=== PATIENT | female | born 1975 | race Caucasian/White ===

== ENCOUNTER 2017-10-13 11:11 | Outpatient (CLI) | payer MEDICAID, SELFPAY ==
[2017-10-13 13:26] LABS: Abs Immature Grans 0.01 k/cumm (0.0-0.09); Absolute Basophil Count 0.02 k/cumm (0.0-0.2); Absolute Eosinophil Count 0.07 k/cumm (0.0-0.7); Absolute Lymphocyte Count 1.82 k/cumm (1.2-3.4); Absolute Monocyte Count 0.35 k/cumm (0.11-0.7); Absolute Neutrophil Count 3.52 k/cumm (1.2-6.7); Basophils % 0.3; Eosinophils % 1.2; HCT 39.3 % (36.0-46.0); HGB 13.7 g/dL (12.0-15.5); Immature Grans % 0.2; Lymphocytes % 31.4; Mean Corp. HGB Concentration 34.9 g/dL (32.0-36.0); Mean Corpuscular Hemoglobin 31.1 pg (27.0-33.0); Mean Corpuscular Volume 89.1 fL (80-95); Mean Platelet Volume 12.6 fL (8.0-11.0); Neutrophils % 60.9; Platelet Count 208 x1000/uL (130-400); RBC 4.41 m/cumm (4.00-5.20); RBC Distribution Width 12.6 % (11.7-14.6); White Blood Cell Count 5.79 k/cumm (4.4-10.8)
[2017-10-13 13:33] LABS: Hemoglobin A1C 12.4 % (4.5-6.2)
[2017-10-13 13:44] LABS: Albumin 3.8 g/dL (3.4-5.0); Alkaline Phosphatase 146 U/L (46-116); Anion Gap 11.8 mmol/L (3-11); BUN 8 mg/dL (7-18); Bilirubin, Total 0.8 mg/dL (0.2-1.0); CO2 25.2 mmol/L (21.0-32.0); CREATININE 0.87 mg/dL (0.55-1.02); Calcium 9.5 mg/dL (8.5-10.1); Chloride 96 mmol/L (98-107); Cholesterol 332 mg/dL (50-200); Glucose 443 mg/dL (70-100); HDL Cholesterol 28 mg/dL (40-60); LDL CHOLESTEROL 83 mg/dL (<100); Magnesium 1.8 mg/dL (1.8-2.4); Potassium 4.1 mmol/L (3.5-5.1); Sodium 133 mmol/L (136-145); TSH 19.32 uIU/mL (0.358-3.74); Total Protein 7.7 g/dL (6.4-8.2)
[2017-10-13 14:12] LABS: Triglyceride 2356 mg/dL (30-150)
[2017-10-13 14:16] LABS: ALT 81 U/L (12-78)
[2017-10-13 14:20] LABS: AST 81 U/L (15-37)
== END 2017-10-13 11:12 ==
PROVIDERS: Visit Provider Family Medicine
DX: E11.65 Type 2 diabetes mellitus with hyperglycemia (principal); E78.00 Pure hypercholesterolemia, unspecified; E03.9 Hypothyroidism, unspecified; K21.9 Gastro-esophageal reflux disease without esophagitis; R42 Dizziness and giddiness
CPT/HCPCS: 36415; 80053; 80061; 83721; 82043; 82570; 83036; 83735; 84443; 85025

== ENCOUNTER 2017-10-13 12:00 | Outpatient (REF) | payer MEDICAID, SELFPAY ==
[2017-10-13 15:06] LABS: COMMENT (LAB VIEW ONLY) 61.61 mg/dL; Microalb ug/mg Crea 349.6 ug/mg Cr
== END 2017-10-13 12:01 ==
LOC: LBN 12:00
PROVIDERS: Visit Provider Family Medicine
DX: E11.9 Type 2 diabetes mellitus without complications (principal)
CPT/HCPCS: 82043; 82570

== ENCOUNTER 2017-12-02 01:03 | Outpatient (CLI) | payer MEDICAID, SELFPAY ==
[2017-12-02 11:18] LABS: ALT 141 U/L (12-78); AST 166 U/L (15-37); Albumin 3.7 g/dL (3.4-5.0); Alkaline Phosphatase 102 U/L (46-116); Anion Gap 11.4 mmol/L (3-11); BUN 11 mg/dL (7-18); Bilirubin, Total 0.7 mg/dL (0.2-1.0); CO2 23.6 mmol/L (21.0-32.0); CREATININE 0.66 mg/dL (0.55-1.02); Calcium 9.1 mg/dL (8.5-10.1); Chloride 104 mmol/L (98-107); Glucose 148 mg/dL (70-100); Potassium 4.4 mmol/L (3.5-5.1); Sodium 139 mmol/L (136-145); TSH (W/Ref FT4) 9.04 uIU/mL (0.358-3.74)
[2017-12-02 11:41] LABS: FREE T4 0.86 ng/dL (0.76-1.46)
== END 2017-12-02 01:23 ==
DX: E03.9 Hypothyroidism, unspecified (principal); B37.3 Candidiasis of vulva and vagina
CPT/HCPCS: 36415; 80053; 84439; 84443

== ENCOUNTER 2017-12-22 17:34 | Outpatient (REF) | payer MEDICAID, SELFPAY ==
--- NOTE | 2017-12-22 13:40 | PAPFT_PTH ---
PATIENT: Evita Singleton LOC: [facility] U#:[id number] AGE/SX: 42/F ROOM: RE12/22/[address]: Marcia Dickens APRN : 1975 BED: DIS: 12/22/2017 SPEC #: [id number] RECD: 12/22/17 18:16 STATUS: JOAQUIN REQ #: [id number] SHERRIE: 12/22/17 13:[address]: Marcia Dickens DEPT: [facility] Cytology RECD BY: Aliya Squires Tissues: 1 - CX/ENDOCX FOR PAP SMEARS Procedures: PAP THIN PREP/UVM Screening HPV DNA PROBE Comments: [id number]
== END 2017-12-22 17:54 ==
LOC: LBN 17:34
DX: Z12.4 Encounter for screening for malignant neoplasm of cervix (principal); Z11.51 Encounter for screening for human papillomavirus (HPV)
CPT/HCPCS: 88142; 87624

== ENCOUNTER 2018-01-05 01:35 | Outpatient (CLI) | payer MEDICAID, SELFPAY ==
[2018-01-05 13:35] LABS: ALT 94 U/L (12-78)
== END 2018-01-05 01:55 ==
DX: R74.8 Abnormal levels of other serum enzymes (principal); O99.89 Other specified diseases and conditions complicating pregnancy, childbirth and the puerperium; R74.0 Nonspecific elevation of levels of transaminase and lactic acid dehydrogenase [LDH]
CPT/HCPCS: 36415; 84460

== ENCOUNTER 2018-06-07 04:42 | Outpatient (CLI) | payer MEDICAID, SELFPAY ==
[2018-06-07 11:14] LABS: AST 106 U/L (15-37)
[2018-06-07 11:16] LABS: Hemoglobin A1C 11.5 % (4.5-6.2)
== END 2018-06-07 05:02 ==
DX: E11.65 Type 2 diabetes mellitus with hyperglycemia (principal); R74.0 Nonspecific elevation of levels of transaminase and lactic acid dehydrogenase [LDH]; R74.8 Abnormal levels of other serum enzymes
CPT/HCPCS: 36415; 83036; 84450

== ENCOUNTER 2018-06-11 08:24 | Emergency (ER) | payer MEDICAID, SELFPAY ==
[2018-06-11 08:53] VITALS: BP 149/91; PULSE 68; RESP 16; TEMP 36.7; O2SAT 98
--- NOTE | 2018-06-11 08:53 | ED.GENADUL_ITS ---
Discharge Plan Disposition Patient Disposition: HOME Condition: Improving Discharge Details Chief Complaint: Sorethroat Clinical Impression: Acute pharyngitis Primary Care Provider: Marcia Dickens ED Provider: Kentrell Arnold Home Meds and New Rx's Prescriptions: New penicillin V potassium 500 mg tablet 500 mg PO TID 10 Days Qty: 30 RF: 0 Continued cyanocobalamin (vitamin B-12) 500 mcg tablet 500 mcg PO DAILY RF: 0 fluconazole 150 mg tablet 150 mg PO ONCE Qty: 2 RF: 11 hydrochlorothiazide 12.5 mg tablet 12.5 mg PO DAILY Qty: 90 RF: 3 lancets 28 gauge misc 1 ea Miscellaneous TID Qty: 400 RF: 3 levocetirizine [Xyzal] 5 mg tablet 5 mg PO PRN Qty: 30 RF: 3 levothyroxine 200 mcg tablet 200 mcg PO DAILY Qty: 90 RF: 3 Victoza 2-Fly 0.6 mg/0.1 mL (18 mg/3 mL) pen injector 0.6 mg subcut DAILY Qty: 9 RF: 4 lisinopril 2.5 mg tablet 5 mg PO BID Qty: 180 RF: 3 loratadine 10 mg tablet 10 mg PO DAILY Qty: 90 RF: 3 metformin 500 mg tablet 1,000 mg PO BID Qty: 360 RF: 3 miconazole nitrate [Monistat 7] 2 % cream 1 appful VG .seven Qty: 45 RF: 3 naproxen 500 mg tablet 500 mg PO BID MDD 1500mg Qty: 90 RF: 4 norethindrone acetate 5 mg tablet 5 mg PO DAILY Qty: 90 RF: 4 nystatin 100,000 unit/gram powder 1 applic Topical TID PRN (Reason: rash) Qty: 60 RF: 3 olopatadine 0.1 % drops 1 drp Ophthalmic BID PRN (Reason: atopic conjunctivitis) Qty: 1 RF: 3 pantoprazole 40 mg tablet,delayed release (DR/EC) 40 mg PO DAILY Qty: 90 RF: 3 pen needle, diabetic [Pen Needle] 31 gauge x 5/16 needle 1 ea Miscellaneous QID Qty: 400 RF: 3 sumatriptan succinate [Imitrex] 50 mg tablet 50 mg PO PRN MDD 200mg Qty: 30 RF: 3 valacyclovir 1 gram tablet 1,000 mg PO BID Qty: 20 RF: 3 fluoxetine 40 mg capsule 40 mg PO DAILY Qty: 90 RF: 3 Synvisc 16 MG/2 ML syringe 16 mg IU Q6 months RF: 0 triamcinolone acetonide 15 GM cream 15 gm Topical BID Qty: 1 RF: 2 Novolog Flexpen U-100 Insulin 100 unit/mL insulin pen See Rx Instructions Sub-Q TID Qty: 15 RF: 3 Lantus Solostar U-100 Insulin 100 unit/mL (3 mL) insulin pen 37 unit subcut BID Qty: 15 RF: 3 atorvastatin [Lipitor] 40 mg tablet 40 mg PO HS Qty: 90 RF: 3 FreeStyle Lite Strips strip See Rx Instructions .ROUTE .COMPLEX Qty: 400 RF: 12 No Action blood-glucose meter 1 EACH misc 1 ea Miscellaneous DAILY Qty: 1 RF: 0 Discharge Instructions Instructions: Pharyngitis (ED) Additional Instructions: Return for difficulty swallowing, change to voice, persistent high fevers or any other acute concerns. I recommend that you take either [id number] probiotic and/or live culture yogurt in between the doses of antibiotics. May use [id number] Gas-X as well if needed. Continue your regular medications. 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 She is well-appearing without acute distress. Rapid strep test is positive. Will treat with a course of penicillin. Discussed with her home care as well as follow-up/return precautions HPI General Mode of arrival: ambulatory . Date/Time Provider Initiated Documentation: 06/11/18 08:45 . Limitations to Documentation: no limitations . Information obtained by: patient . History of Present Illness 43 year old F presents to the emergency department with the chief complaint of Sore throat times 3 days with mild associated loose stool, no abdominal, described as moderate, Quality is described as aching and dull, and is localized to the mouth. Patient started experiencing this day(s) and it has been constant. No relieving factors improve symptom(s), Patient notes denies fever/chills. Related Data Home Medications Medication Instructions Recorded Confirmed Synvisc 16 mg IU Q6 months 12/24/13 06/11/18 blood-glucose meter #1 ea 01/14/15 05/17/18 triamcinolone acetonide 15 gm TOPICAL BID #1 tube 12/15/15 06/11/18 cyanocobalamin (vit B-12) 500 mcg 500 mcg PO DAILY 12/13/17 06/11/18 tablet fluconazole 150 mg tablet 150 mg PO ONCE #2 tab-cap 12/13/17 06/11/18 hydrochlorothiazide 12.5 mg tablet 12.5 mg PO DAILY #90 tab-cap 12/13/17 06/11/18 lancets 28 gauge #400 ea 12/13/17 05/17/18 levocetirizine 5 mg tablet 5 mg PO PRN #30 tab-cap 12/13/17 06/11/18 levothyroxine 200 mcg tablet 200 mcg PO DAILY #90 tab-cap 12/13/17 06/11/18 liraglutide 0.6 mg/0.1 mL (18 mg/3 0.6 mg SUBCUT DAILY #9 ml 12/13/17 06/11/18 mL) subcutaneous pen injector lisinopril 2.5 mg tablet 5 mg PO BID #180 tab-cap 12/13/17 06/11/18 loratadine 10 mg tablet 10 mg PO DAILY #90 tab-cap 12/13/17 06/11/18 metformin 500 mg tablet 1,000 mg PO BID #360 tab 12/13/17 06/11/18 miconazole nitrate 2 % vaginal 1 appful VG .seven #45 gm 12/13/17 06/11/18 cream naproxen 500 mg tablet 500 mg PO BID #90 tab MDD 1500mg 12/13/17 06/11/18 norethindrone acetate 5 mg tablet 5 mg PO DAILY #90 tab-cap 12/13/17 06/11/18 nystatin 100,000 unit/gram topical 1 applic TOPICAL TID PRN #60 gm 12/13/17 06/11/18 powder olopatadine 0.1 % eye drops 1 drp OPHTHALMIC BID PRN #1 bottle 12/13/17 06/11/18 pantoprazole 40 mg tablet,delayed 40 mg PO DAILY #90 tab-cap 12/13/17 06/11/18 release pen needle, diabetic 31 gauge x #400 each 12/13/17 05/17/1807/20 sumatriptan 50 mg tablet 50 mg PO PRN #30 tab-cap MDD 200mg 12/13/17 06/11/18 valacyclovir 1 gram tablet 1,000 mg PO BID #20 tab-cap 12/13/17 06/11/18 insulin aspart U- 100 100 unit/mL See Rx Instructions SUB-Q TID #15 12/14/17 06/11/18 subcutaneous pen ml insulin glargine (U-100) 100 37 unit SUBCUT BID #15 ml 01/11/18 06/11/18 unit/mL (3 mL) subcutaneous pen atorvastatin 40 mg tablet 40 mg PO HS #90 tab-cap 02/23/18 06/11/18 fluoxetine 40 mg capsule 40 mg PO DAILY #90 cap 05/17/18 06/11/18 blood sugar diagnostic strips See Rx Instructions .ROUTE 05/22/18 06/11/18 .COMPLEX #400 strip penicillin V potassium 500 mg PO TID 10 Days #30 tab 06/11/18 Previous Rx's Medication Instructions Recorded fluconazole 150 mg tablet 150 mg PO ONCE #2 tab-cap 12/13/17 hydrochlorothiazide 12.5 mg tablet 12.5 mg PO DAILY #90 tab-cap 12/13/17 lancets 28 gauge #400 ea 12/13/17 levocetirizine 5 mg tablet 5 mg PO PRN #30 tab-cap 12/13/17 levothyroxine 200 mcg tablet 200 mcg PO DAILY #90 tab-cap 12/13/17 liraglutide 0.6 mg/0.1 mL (18 mg/3 0.6 mg SUBCUT DAILY #9 ml 12/13/17 mL) subcutaneous pen injector lisinopril 2.5 mg tablet 5 mg PO BID #180 tab-cap 12/13/17 loratadine 10 mg tablet 10 mg PO DAILY #90 tab-cap 12/13/17 metformin 500 mg tablet 1,000 mg PO BID #360 tab 12/13/17 miconazole nitrate 2 % vaginal 1 appful VG .seven #45 gm 12/13/17 cream naproxen 500 mg tablet 500 mg PO BID #90 tab MDD 1500mg 12/13/17 norethindrone acetate 5 mg tablet 5 mg PO DAILY #90 tab-cap 12/13/17 nystatin 100,000 unit/gram topical 1 applic TOPICAL TID PRN #60 gm 12/13/17 powder olopatadine 0.1 % eye drops 1 drp OPHTHALMIC BID PRN #1 bottle 12/13/17 pantoprazole 40 mg tablet,delayed 40 mg PO DAILY #90 tab-cap 12/13/17 release pen needle, diabetic 31 gauge x #400 each 12/13/17 5 sumatriptan 50 mg tablet 50 mg PO PRN #30 tab-cap MDD 200mg 12/13/17 valacyclovir 1 gram tablet 1,000 mg PO BID #20 tab-cap 12/13/17 insulin aspart U- 100 100 unit/mL See Rx Instructions SUB-Q TID #15 12/14/17 subcutaneous pen ml insulin glargine (U-100) 100 37 unit SUBCUT BID #15 ml 01/11/18 unit/mL (3 mL) subcutaneous pen atorvastatin 40 mg tablet 40 mg PO HS #90 tab-cap 02/23/18 fluoxetine 40 mg capsule 40 mg PO DAILY #90 cap 05/17/18 blood sugar diagnostic strips See Rx Instructions .ROUTE 05/22/18 .COMPLEX #400 strip penicillin V potassium 500 mg PO TID 10 Days #30 tab 06/11/18 Allergies Allergy/AdvReac Type Severity Reaction Status Date / Time Sulfa (Sulfonamide Allergy Severe Anaphylaxsi Verified 06/11/18 08:58 Antibiotics) s fentanyl Allergy Intermediate Verified 06/11/18 08:58 latex Allergy Intermediate Hives Verified 06/11/18 08:58 zolpidem tartrate AdvReac Mild Verified 06/11/18 08:58 [From Ambien] Dust, cat dander Allergy Intermediate Hives Uncoded 06/11/18 08:58 Environmental Allergies Allergy Intermediate Rash Uncoded 06/11/18 08:58 Review of Systems Review of Systems 6 systems reviewed and otherwise neg [facility] Medical History Sleep apnea (Chronic 05/28/12) Simple endometrial hyperplasia without atypia (Chronic 01/02/14) Peripheral polyneuropathy (Chronic 10/29/15) Migraine (Chronic) Unspecified mental or behavioral problem (Acute) Menorrhagia (Chronic 01/02/14) MDD (major depressive disorder) (Chronic) Liver disorder (Chronic 09/24/15) Increased body mass index (Chronic 01/25/14) Hypothyroidism, acquired (Chronic) Hypertension (Chronic) High cholesterol (Chronic) Herpes simplex vulvovaginitis (Chronic 05/19/17) Diabetes type 2, uncontrolled (Acute 04/22/15) Dermatitis (Chronic 12/16/15) DJD (degenerative joint disease) (Chronic) Chronic pain disorder (Chronic) Arthritis of knee (Chronic 05/24/11) Anxiety (Chronic 01/25/14) Acid reflux (Chronic 01/25/14) Bronchitis (Chronic) Abnormal uterine bleeding (AUB) Genital herpes Migraine Sleep apnea Surgical History Bladder Surgery (~2002) CRANIO/MAXILLAFACIAL SURGERY (~2007) section Cholecystectomy (~2005) Endometrial Biopsy Tooth extraction Family History Mother No problems noted. Father Alcohol abuse Prostate cancer Sister No problems noted. Brother Stroke Maternal Grandfather Essential hypertension Heart disease Hyperlipidemia Paternal Grandfather Myocardial infarction Brain tumor Maternal Grandmother Essential hypertension Paternal Grandmother Personal history of malignant neoplasm MATERNAL AUNT Essential hypertension Cancer MATERNAL UNCLE Essential hypertension Social History Smoking/Tobacco Use Status: Former Tobacco Use Quit Date: 03/07/10 Pack-years: 10 Second Hand Exposure: Yes Alcohol Intake: former Drug use: Never Substance use type: former substance user Household members: other Details: 2 Number of Children: 4 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 Pets and animals: Yes Pets and animals: cat(s) What type of physical activity do you participate in: walking and swimming Duration: 15-30 minutes/day Frequency: 1-2 times per week Jailyn/Anabaptism: No preference Special jailyn needs: Yes (SINGING) Seatbelt use: always Helmet use: Yes Helmet use: always Do you feel safe at home: Yes Do you feel safe in your relationship?: Yes Exam Narrative Exam Narrative: GEN: awake, alert, oriented 3. Pleasant, well groomed, interactive. HEAD: Normocephalic, atraumatic ENT: Mucous membranes moist, oropharynx erythematous tonsillar pillars, External ear exam unremarkable. Tympanic membranes clear bilaterally EYES: PERRL, EOMI NECK: Full ROM, no AYAN, no menigismus CHEST/RESP: Nontender, clear to auscultation bilateral, no wheeze/rhonchi/rales CARDIOVASCULAR: RRR, no murmur, rub linda. 2+ Rad pulse bilateral EXT: Full ROM, no edema, no rash Neuro: Grossly normal neurologic exam, conversant, interactive. Psych: Speech fluent, thoughts congruent, affect normal
== END 2018-06-11 09:13 | disposition home or self-care (01) ==
PROVIDERS: Emergency Provider Emergency Medicine
DX: J02.0 Streptococcal pharyngitis (principal)
CPT/HCPCS: 87880; 99283

== ENCOUNTER 2018-06-21 07:30 | Outpatient (CLI) | payer MEDICAID, SELFPAY ==
[2018-06-21 13:15] LABS: TSH (W/Ref FT4) 4.69 uIU/mL (0.358-3.74)
[2018-06-21 13:34] LABS: FREE T4 0.82 ng/dL (0.76-1.46)
== END 2018-06-21 07:50 ==
DX: E03.9 Hypothyroidism, unspecified (principal); G47.00 Insomnia, unspecified
CPT/HCPCS: 36415; 84439; 84443

== ENCOUNTER 2018-09-19 09:16 | Outpatient (CLI) | payer MEDICAID, SELFPAY | END 2018-09-19 09:36 | DX: R69 Illness, unspecified (principal) ==

== ENCOUNTER 2018-09-27 12:53 | Outpatient (CLI) | payer MEDICAID, SELFPAY ==
[2018-09-27 13:45] LABS: Hemoglobin A1C 8.9 % (4.5-6.2)
[2018-09-27 14:31] LABS: TSH (W/Ref FT4) 10.21 uIU/mL (0.36-3.74)
[2018-09-27 14:52] LABS: FREE T4 0.71 ng/dL (0.76-1.46)
== END 2018-09-27 13:13 ==
DX: E03.9 Hypothyroidism, unspecified (principal); G47.00 Insomnia, unspecified; E11.9 Type 2 diabetes mellitus without complications
CPT/HCPCS: 36415; 83036; 84439; 84443

== ENCOUNTER 2018-12-08 08:09 | Outpatient (CLI) | payer MEDICAID, SELFPAY ==
[2018-12-08 10:57] LABS: TSH 10.76 uIU/mL (0.36-3.74)
== END 2018-12-08 08:29 ==
DX: E03.9 Hypothyroidism, unspecified (principal); E11.65 Type 2 diabetes mellitus with hyperglycemia
CPT/HCPCS: 36415; 83036; 84443

== ENCOUNTER 2018-12-22 02:17 | Outpatient (CLI) | payer MEDICAID, SELFPAY ==
--- NOTE | 2018-12-22 11:07 | DI.US_ITS ---
EXAM: US THYROID CLINICAL HISTORY: uncontrolled TSH despite medications, E03.9 HYPOTHYROIDISM TECHNIQUE: Ultrasound performed using standard protocol. COMPARISON: THYROID ULTRASOUND from 11/28/2015 FINDINGS: Both lobes of the thyroid are again noted to be diffusely heterogeneous. No dominant nodules are id entified. The right lobe measures 5.3 x 1.8 x 2.1 cm. The left lobe measures 5.4 x 1.6 x 2.1 cm. T here may be a slight increase in thyroid size when compared with the previous exam. IMPRESSION: Mild interval increase in heterogeneous thyroid.
== END 2018-12-22 02:37 ==
DX: E03.9 Hypothyroidism, unspecified (principal)
CPT/HCPCS: 76536

== ENCOUNTER 2019-03-23 01:16 | Outpatient (CLI) | payer MEDICAID, SELFPAY ==
[2019-03-23 12:00] LABS: TSH (W/Ref FT4) 13.11 uIU/mL (0.36-3.74)
[2019-03-23 12:33] LABS: FREE T4 0.83 ng/dL (0.76-1.46)
[2019-03-23 13:05] LABS: Hemoglobin A1C 13.4 % (3.8-5.6)
== END 2019-03-23 01:36 ==
DX: E03.9 Hypothyroidism, unspecified (principal); E11.65 Type 2 diabetes mellitus with hyperglycemia; G47.00 Insomnia, unspecified
CPT/HCPCS: 83036; 84439; 84443

== ENCOUNTER 2019-04-10 09:35 | Outpatient (REF) | payer MEDICAID, SELFPAY ==
[2019-04-10 15:56] LABS: Bilirubin Negative (Negative); Blood Moderate (Negative); Clarity Cloudy (Clear); Glucose 500 mg/dL (Negative); Ketones Negative (Negative); Leukocyte Esterase Small (Negative); Nitrite Positive (Negative); Specific Gravity >= 1.030 (1.005-1.025); Urobilinogen 0.2 EU/dL (Up TO 0.2); pH 5.5 (5-8)
[2019-04-10 16:08] LABS: Bacteria Moderate HPF (Negative); C & S Indicated? Yes; Casts Negative LPF (Negative); Crystals Few Calcium Oxalate HPF (Negative); Epithelial Cells Few HPF (Negative); Mucus Negative (Negative); WBC >50 HPF (0-5)
== END 2019-04-10 09:55 ==
LOC: LBN 09:35
DX: R30.0 Dysuria (principal)
CPT/HCPCS: 87077; 81003; 81015; 87086; 87186

== ENCOUNTER 2019-05-17 02:39 | Outpatient (CLI) | payer MEDICAID, SELFPAY ==
[2019-05-17 08:44] LABS: ALT 52 U/L (14-59); AST 61 U/L (15-37); Albumin 3.7 g/dL (3.4-5.0); Alkaline Phosphatase 80 U/L (46-116); Anion Gap 10.5 mmol/L (3-11); BUN 17 mg/dL (7-18); Bilirubin, Total 0.7 mg/dL (0.2-1.0); CO2 26.5 mmol/L (21.0-32.0); CREATININE 0.75 mg/dL (0.55-1.02); Calcium 8.7 mg/dL (8.5-10.1); Chloride 106 mmol/L (98-107); Glucose 171 mg/dL (74-106); Sodium 143 mmol/L (136-145); TSH (W/Ref FT4) 3.08 uIU/mL (0.36-3.74); Total Protein 6.7 g/dL (6.4-8.2)
[2019-05-17 09:04] LABS: Hemoglobin A1C 11.5 % (3.8-5.6)
== END 2019-05-17 02:59 ==
DX: E03.9 Hypothyroidism, unspecified (principal); E11.65 Type 2 diabetes mellitus with hyperglycemia; G47.00 Insomnia, unspecified; I10 Essential (primary) hypertension; R63.8 Other symptoms and signs concerning food and fluid intake
CPT/HCPCS: 36415; 80053; 83036; 84443

== ENCOUNTER 2019-11-29 04:49 | Outpatient (CLI) | payer MEDICAID, SELFPAY ==
[2019-11-29 12:32] LABS: HGB 13.8 g/dL (11.2-15.7)
[2019-11-29 12:44] LABS: Hemoglobin A1C 12.3 % (<5.7)
[2019-11-29 12:55] LABS: ALT 77 U/L (14-59); AST 93 U/L (15-37); Albumin 3.8 g/dL (3.4-5.0); Alkaline Phosphatase 122 U/L (46-116); Anion Gap 7.8 mmol/L (3-11); BUN 14 mg/dL (7-18); Bilirubin, Total 0.6 mg/dL (0.2-1.0); CO2 27.2 mmol/L (21.0-32.0); CREATININE 0.85 mg/dL (0.55-1.02); Calcium 9.3 mg/dL (8.5-10.1); Chloride 98 mmol/L (98-107); Glucose 401 mg/dL (74-106); Potassium 4.5 mmol/L (3.5-5.1); Sodium 133 mmol/L (136-145); TSH (W/Ref FT4) 7.77 uIU/mL (0.36-3.74); Total Protein 7.7 g/dL (6.4-8.2)
[2019-11-29 13:12] LABS: FREE T4 0.83 ng/dL (0.76-1.46)
== END 2019-11-29 05:09 ==
DX: E11.65 Type 2 diabetes mellitus with hyperglycemia (principal); E03.9 Hypothyroidism, unspecified; R53.83 Other fatigue; M17.0 Bilateral primary osteoarthritis of knee; I88.9 Nonspecific lymphadenitis, unspecified
CPT/HCPCS: 36415; 80053; 83036; 84439; 84443; 85014; 85018

== ENCOUNTER 2020-01-18 11:15 | Outpatient (CLI) | payer MEDICAID, SELFPAY ==
--- NOTE | 2020-01-18 11:00 | DI.RAD_ITS ---
EXAM: XR STANDING ALIGNMENT and XR knee RT two view AP, Lat CLINICAL HISTORY: follow up. TECHNIQUE: 2D digital imaging was performed. COMPARISON: CR XR KNEE LT 3V AP,LAT,ANGUS from 01/18/2020 CR XR KNEE RT 2V AP,LAT from 01/18/2020 FINDINGS: The hip joints are well maintained. Severe degenerative changes are seen in the right knee character ized by joint space narrowing and periarticular spurring. The findings are most marked in the medial femoral tibial and the patellofemoral joints. Marked degenerative changes are seen in the left knee particularly the medial femoral tibial joint. The ankle joints are unremarkable. The right lower e xtremity measures 95.3 cm. The left lower extremity measures 96 cm. IMPRESSION: Severe bilateral osteoarthritis of the knees. No significant leg length discrepancy. DATA REPOSITORY: RADIATION DOSE DELIVERED:
--- NOTE | 2020-01-18 11:00 | DI.RAD_ITS ---
EXAM: XR KNEE LT 3V AP,LAT,ANGUS CLINICAL HISTORY: pain. TECHNIQUE: 2D digital imaging was performed. COMPARISON: CR CHEST 2 VIEWS PA,LAT from 01/28/2015 FINDINGS: Marked degenerative changes are seen in the left knee characterized by joint space narrowing and yulissa articular spurring. Findings are most marked in the medial femoral tibial and patellofemoral joint. The bones are intact. No acute fracture or dislocation is seen. No joint effusion is present. The soft tissues are unremarkable. IMPRESSION: Marked osteoarthritis of the left knee. DATA REPOSITORY: RADIATION DOSE DELIVERED:
== END 2020-01-18 11:35 ==
PROVIDERS: Visit Provider Physician Assistant Surgical
DX: M17.0 Bilateral primary osteoarthritis of knee (principal)
CPT/HCPCS: 73562; 73560; 77073

== ENCOUNTER 2020-02-03 12:06 | Emergency (ER) | payer MEDICAID, SELFPAY ==
[2020-02-03 12:11] VITALS: BP 162/97; PULSE 93; RESP 16; TEMP 36.4; O2SAT 97
--- NOTE | 2020-02-03 12:21 | ED.GENADUL_ITS ---
Discharge Plan Disposition Patient Disposition: HOME Condition: Improving Discharge Details Clinical Impression: Otitis media, right Primary Care Provider: Marcia Dickens ED Provider: Kentrell Arnold Home Meds and New Rx's Prescriptions: New amoxicillin-pot clavulanate 875-125 mg tablet 1 tab PO BID 10 Days Qty: 20 RF: 0 Continued miconazole nitrate [Monistat 7] 2 % cream 1 appful VG .seven Qty: 45 RF: 3 norethindrone acetate 5 mg tablet 5 mg PO DAILY Qty: 90 RF: 4 nystatin 100,000 unit/gram powder 1 applic Topical TID PRN (Reason: rash) Qty: 60 RF: 3 levothyroxine 25 mcg tablet 50 mcg PO DAILY RF: 0 Victoza 2-Fly 0.6 mg/0.1 mL (18 mg/3 mL) pen injector 1.8 mg subcut DAILY Qty: 9 RF: 4 mupirocin 2 % ointment 1 applic TP BID Qty: 22 RF: 3 metformin 500 mg tablet 500 mg PO BID RF: 0 (DME) Dexcom G6 Fisheries Diver Misc See Rx Instructions .ROUTE .MEDSUPPLY Qty: 1 RF: 0 (DME) Dexcom G6 Transmitter Device See Rx Instructions .ROUTE .MEDSUPPLY Qty: 1 RF: 0 (DME) Dexcom G6 Sensor Device See Rx Instructions .ROUTE .MEDSUPPLY Qty: 3 RF: 6 fluoxetine 40 mg capsule 40 mg PO DAILY Qty: 90 RF: 4 Synvisc 16 MG/2 ML syringe 16 mg IU Q6 months RF: 0 FreeStyle Lite Strips strip See Rx Instructions .ROUTE .COMPLEX Qty: 400 RF: 12 glucose [Dex4 Glucose] 4 gram tablet,chewable 4 gm PO Q15M PRN (Reason: hypoglycemia) Qty: 7 RF: 2 phenazopyridine [Pyridium] 100 mg tablet 100 mg PO TID PRN (Reason: pain) Qty: 6 RF: 0 atorvastatin [Lipitor] 40 mg tablet 40 mg PO HS Qty: 90 RF: 3 cyanocobalamin (vitamin B-12) 500 mcg tablet 500 mcg PO DAILY Qty: 90 RF: 4 hydrochlorothiazide 12.5 mg tablet 12.5 mg PO DAILY Qty: 90 RF: 3 hydroxyzine HCl 25 mg tablet 25 mg PO Q6H PRN (Reason: headaches) Qty: 30 RF: 1 insulin aspart U-100 [Novolog Flexpen U-100 Insulin] 100 unit/mL (3 mL) insulin pen See Rx Instructions Sub-Q TID Qty: 15 RF: 3 (DME) lancets 28 gauge misc 1 ea Miscellaneous TID Qty: 50 RF: 3 levocetirizine [Xyzal] 5 mg tablet 5 mg PO PRN Qty: 30 RF: 3 Hold Instructions: Home Medication placed on hold at Doctor's office levothyroxine 200 mcg tablet 200 mcg PO DAILY Qty: 90 RF: 3 loratadine 10 mg tablet 10 mg PO DAILY Qty: 90 RF: 3 magnesium oxide 400 mg magnesium capsule 400 mg PO DAILY Qty: 90 RF: 3 naproxen 500 mg tablet 500 mg PO BID MDD 1500mg Qty: 90 RF: 4 pantoprazole 40 mg tablet,delayed release (DR/EC) 40 mg PO DAILY Qty: 90 RF: 3 (DME) pen needle, diabetic [Pen Needle] 31 gauge x 5/16 needle 1 ea Miscellaneous QID Qty: 400 RF: 3 sumatriptan succinate [Imitrex] 50 mg tablet 50 mg PO PRN MDD 200mg Qty: 30 RF: 3 triamcinolone acetonide 0.1 % cream 1 applic Topical BID PRN (Reason: rash) Qty: 1 RF: 2 cetirizine [All Day Allergy (cetirizine)] 10 mg tablet 10 mg PO DAILY Qty: 90 RF: 3 Lantus Solostar U-100 Insulin 100 unit/mL (3 mL) insulin pen 44 unit subcut BID Qty: 15 RF: 4 olopatadine 0.1 % drops 1 drp Ophthalmic BID PRN (Reason: atopic conjunctivitis) Qty: 1 RF: 3 lisinopril 2.5 mg tablet 5 mg PO BID Qty: 180 RF: 3 valacyclovir 1 gram tablet 1,000 mg PO BID PRN (Reason: Herpes outbreak) Qty: 30 RF: 1 Discharge Instructions Instructions: Ear Infection (ED) Additional Instructions: Take antibiotics as prescribed. You may benefit from the decongestant effect of 25 mg, 1 tablet, of Benadryl at bedtime. Return for worsening discomfort or any other acute concerns. Please follow-up with Marcia Dickens in clinic if not improved in 1 week's time. Tylenol and/or ibuprofen as needed for pain. Medical Decision Making 44-year-old female with day 3 of right ear pain. She is afebrile, well- appearing, she does have evidence of developing right otitis media. We will treat her with a course of Augmentin. She is stable and appropriate for trial of outpatient management. HPI General Mode of arrival: ambulatory . Date/Time Provider Initiated Documentation: 02/03/20 12:09 . Limitations to Documentation: no limitations . Information obtained by: patient . History of Present Illness 44 year old F presents to the emergency department with the chief complaint of Right ear pain 3rd day, described as moderate, Quality is described as dull, and is localized to the head and right. Patient started experiencing this day(s) and it has been constant. No relieving factors improve symptom(s), No exacerbating factors reported . Patient notes denies fever/chills and headaches. Patient did receive the following treatments prior to arrival, none Related Data Home Medications Medication Instructions Recorded Confirmed Synvisc 16 mg IU Q6 months 12/24/13 02/03/20 miconazole nitrate 2 % vaginal 1 appful VG .seven #45 gm 12/13/17 02/03/20 cream norethindrone acetate 5 mg tablet 5 mg PO DAILY #90 tab-cap 12/13/17 02/03/20 nystatin 100,000 unit/gram topical 1 applic TOPICAL TID PRN #60 gm 12/13/17 02/03/20 powder blood sugar diagnostic See Rx Instructions .ROUTE 05/22/18 02/03/20 .COMPLEX #400 strip glucose 4 gram chewable tablet 4 gm PO Q15M PRN #7 tab 07/06/18 02/03/20 phenazopyridine 100 mg tablet 100 mg PO TID PRN #6 tab 04/10/19 02/03/20 blood-glucose meter,continuous #1 each 04/21/19 02/03/20 atorvastatin 40 mg tablet 40 mg PO HS #90 tab-cap 05/25/19 02/03/20 cyanocobalamin (vitamin B-12) 500 500 mcg PO DAILY #90 tab 05/25/19 02/03/20 mcg tablet hydrochlorothiazide 12.5 mg tablet 12.5 mg PO DAILY #90 tab-cap 05/25/19 02/03/20 hydroxyzine HCl 25 mg tablet 25 mg PO Q6H PRN #30 tab 05/25/19 02/03/20 insulin aspart U-100 100 unit/mL See Rx Instructions SUB-Q TID #15 05/25/19 02/03/20 (3 mL) subcutaneous pen ml lancets 28 gauge #50 each 05/25/19 02/03/20 levocetirizine 5 mg tablet 5 mg PO PRN #30 tab-cap 05/25/19 02/03/20 levothyroxine 200 mcg tablet 200 mcg PO DAILY #90 tab-cap 05/25/19 02/03/20 loratadine 10 mg tablet 10 mg PO DAILY #90 tab-cap 05/25/19 02/03/20 magnesium oxide 400 mg PO DAILY #90 cap 05/25/19 02/03/20 naproxen 500 mg tablet 500 mg PO BID #90 tab MDD 1500mg 05/25/19 02/03/20 pantoprazole 40 mg tablet,delayed 40 mg PO DAILY #90 tab-cap 05/25/19 02/03/20 release pen needle, diabetic 31 gauge x #400 each 05/25/19 02/03/2007/20 sumatriptan succinate 50 mg tablet 50 mg PO PRN #30 tab-cap MDD 200mg 05/25/19 02/03/20 triamcinolone acetonide 0.1 % 1 applic TOPICAL BID PRN #1 tube 05/25/19 02/03/20 topical cream cetirizine 10 mg tablet 10 mg PO DAILY #90 tab 06/05/19 02/03/20 levothyroxine 25 mcg tablet 50 mcg PO DAILY tab 07/23/19 02/03/20 insulin glargine 100 unit/mL (3 44 unit SUBCUT BID #15 ml 08/21/19 02/03/20 mL) subcutaneous pen liraglutide 0.6 mg/0.1 mL (18 mg/3 1.8 mg SUBCUT DAILY #9 ml 08/23/19 02/03/20 mL) subcutaneous pen injector olopatadine 0.1 % eye drops 1 drp OPHTHALMIC BID PRN #1 bottle 09/04/19 02/03/20 mupirocin 2 % topical ointment 1 applic TP BID #22 gm 11/29/19 02/03/20 lisinopril 2.5 mg tablet 5 mg PO BID #180 tab-cap 11/30/19 02/03/20 valacyclovir 1 gram tablet 1,000 mg PO BID PRN #30 tab 11/30/19 02/03/20 fluoxetine 40 mg capsule 40 mg PO DAILY #90 cap 12/23/19 02/03/20 blood-glucose sensor #3 each 12/27/19 02/03/20 blood-glucose transmitter #1 each 12/27/19 02/03/20 metformin 500 mg tablet 500 mg PO BID tab 01/12/20 02/03/20 amoxicillin-pot clavulanate 1 tab PO BID 10 Days #20 tab 02/03/20 Previous Rx's Medication Instructions Recorded miconazole nitrate 2 % vaginal 1 appful VG .seven #45 gm 12/13/17 cream norethindrone acetate 5 mg tablet 5 mg PO DAILY #90 tab-cap 12/13/17 nystatin 100,000 unit/gram topical 1 applic TOPICAL TID PRN #60 gm 12/13/17 powder blood sugar diagnostic See Rx Instructions .ROUTE 05/22/18 .COMPLEX #400 strip glucose 4 gram chewable tablet 4 gm PO Q15M PRN #7 tab 07/06/18 phenazopyridine 100 mg tablet 100 mg PO TID PRN #6 tab 04/10/19 blood-glucose meter,continuous #1 each 04/21/19 atorvastatin 40 mg tablet 40 mg PO HS #90 tab-cap 05/25/19 cyanocobalamin (vitamin B-12) 500 500 mcg PO DAILY #90 tab 05/25/19 mcg tablet hydrochlorothiazide 12.5 mg tablet 12.5 mg PO DAILY #90 tab-cap 05/25/19 hydroxyzine HCl 25 mg tablet 25 mg PO Q6H PRN #30 tab 05/25/19 insulin aspart U-100 100 unit/mL See Rx Instructions SUB-Q TID #15 05/25/19 (3 mL) subcutaneous pen ml lancets 28 gauge #50 each 05/25/19 levocetirizine 5 mg tablet 5 mg PO PRN #30 tab-cap 05/25/19 levothyroxine 200 mcg tablet 200 mcg PO DAILY #90 tab-cap 05/25/19 loratadine 10 mg tablet 10 mg PO DAILY #90 tab-cap 03/20/20 magnesium oxide 400 mg PO DAILY #90 cap 05/25/19 naproxen 500 mg tablet 500 mg PO BID #90 tab MDD 1500mg 05/25/19 pantoprazole 40 mg tablet,delayed 40 mg PO DAILY #90 tab-cap 05/25/19 release pen needle, diabetic 31 gauge x #400 each 05/25/19 5/ sumatriptan succinate 50 mg tablet 50 mg PO PRN #30 tab-cap MDD 200mg 05/25/19 triamcinolone acetonide 0.1 % 1 applic TOPICAL BID PRN #1 tube 05/25/19 topical cream cetirizine 10 mg tablet 10 mg PO DAILY #90 tab 06/05/19 insulin glargine 100 unit/mL (3 44 unit SUBCUT BID #15 ml 08/21/19 mL) subcutaneous pen liraglutide 0.6 mg/0.1 mL (18 mg/3 1.8 mg SUBCUT DAILY #9 ml 08/23/19 mL) subcutaneous pen injector olopatadine 0.1 % eye drops 1 drp OPHTHALMIC BID PRN #1 bottle 09/04/19 mupirocin 2 % topical ointment 1 applic TP BID #22 gm 11/29/19 lisinopril 2.5 mg tablet 5 mg PO BID #180 tab-cap 11/30/19 valacyclovir 1 gram tablet 1,000 mg PO BID PRN #30 tab 11/30/19 fluoxetine 40 mg capsule 40 mg PO DAILY #90 cap 12/23/19 blood-glucose sensor #3 each 12/27/19 blood-glucose transmitter #1 each 12/27/19 amoxicillin-pot clavulanate 1 tab PO BID 10 Days #20 tab 02/03/20 Allergies Allergy/AdvReac Type Severity Reaction Status Date / Time Sulfa (Sulfonamide Allergy Severe Anaphylaxsi Verified 02/03/20 12:14 Antibiotics) s fentanyl Allergy Intermediate Verified 02/03/20 12:14 latex Allergy Intermediate Hives Verified 02/03/20 12:14 zolpidem tartrate AdvReac Mild Verified 02/03/20 12:14 [From Ambien] Dust, cat dander Allergy Intermediate Hives Uncoded 02/03/20 12:14 Environmental Allergies Allergy Intermediate Rash Uncoded 02/03/20 12:14 General Stated Complaint: EarProblem RODNEY: 4 Review of Systems Narrative: No change to voice or swallowing. No fever. Has otherwise been well. 6 systems reviewed and otherwise negative [facility] Medical History Abnormal uterine bleeding (AUB) on Norethindrone for suppression of menses. Acid reflux (01/25/14) Anxiety (01/25/14) Bronchitis Chronic pain disorder Dermatitis (12/16/15) Diabetes type 2, uncontrolled (04/22/15) Diabetic feet Diarrhea Fatigue Genital herpes HSV-1 primary outbreak. Herpes simplex 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 Surgical History Bladder Surgery (~2002) section 1999 & 2010 Cholecystectomy (~2005) CRANIO/MAXILLAFACIAL SURGERY (~2007) Endometrial Biopsy 12/24/13-[facility] History of bladder surgery History of section History of gynecological procedure Status post cholecystectomy Tooth extraction 11/18- EXTRACTION Family History Mother No problems noted. Father Alcohol abuse Prostate cancer Sister No problems noted. Brother Stroke x2 (five years apart) Maternal Grandfather Essential hypertension Heart disease Hyperlipidemia Paternal Grandfather , AGE 57 Myocardial infarction Brain tumor Maternal Grandmother , AGE 85 Essential hypertension Paternal Grandmother , AGE 85 Personal history of malignant neoplasm COLON MATERNAL AUNT Essential hypertension Cancer MATERNAL UNCLE Essential hypertension Social History Smoking/Tobacco Use Status: Former Tobacco Use Quit Date: 03/07/10 Pack-years: 10 Second Hand Exposure: Yes Smoking risk assessment performed?: Yes Alcohol Intake: former Drug use: Never Substance use type: former substance user Household members: other Details: 2 Number of Children: 4 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 Pets and animals: Yes Pets and animals: cat(s) Current gender identity: female What type of physical activity do you participate in: walking and swimming Duration: 15-30 minutes/day Frequency: 1-2 times per week Jailyn/Jain: No preference Special jailyn needs: Yes (SINGING) Seatbelt use: always Helmet use: Yes Helmet use: always Do you feel safe at home: Yes Do you feel safe in your relationship?: Yes Exam Narrative Exam Narrative: GEN: awake, alert, oriented 3. Pleasant, well groomed, interactive. HEAD: Normocephalic, atraumatic ENT: Mucous membranes moist, oropharynx with tonsillar erythema but no exudate and no swelling, right tympanic membrane distended and slightly erythematous, left tympanic membrane unremarkable,, External ear exam unremarkable EYES: PERRL, EOMI NECK: Full ROM, R submandibular AYAN, no menigismus CHEST/RESP: Nontender, clear to auscultation bilateral, no wheeze/rhonchi/rales CARDIOVASCULAR: RRR, no murmur, rub linda. 2+ Rad pulse bilateral EXT: Full ROM, no edema, no rash Neuro: Grossly normal neurologic exam, conversant, interactive. Psych: Speech fluent, thoughts congruent, affect normal Course Vital Signs Vital signs: Vital Signs Temperature 36.4 C L 02/03/20 12:11 Pulse 93 H 02/03/20 12:11 Respiratory Rate 16 02/03/20 12:11 Blood Pressure 162/97 H 02/03/20 12:11 Pulse Oximetry 97 02/03/20 12:11 Temperature 36.4 C L 02/03/20 12:11 Temperature Source Skin 02/03/20 12:11 Pulse 93 H 02/03/20 12:11 Respiratory Rate 16 02/03/20 12:11 Respiratory Effort Non-Labored 02/03/20 12:11 Blood Pressure 162/97 H 02/03/20 12:11 Blood Pressure Position Sitting 02/03/20 12:11 Pulse Oximetry 97 02/03/20 12:11 Oxygen Delivery Method Room Air 02/03/20 12:11 Oxygen Flow Rate 0 02/03/20 12:11 Pain Level 10 02/03/20 12:16
== END 2020-02-03 12:30 | disposition home or self-care (01) ==
LOC: ER 12:32
PROVIDERS: Emergency Provider Emergency Medicine
DX: H66.91 Otitis media, unspecified, right ear (principal); E11.9 Type 2 diabetes mellitus without complications; Z79.4 Long term (current) use of insulin; I10 Essential (primary) hypertension
CPT/HCPCS: 99283

== ENCOUNTER 2020-05-14 03:45 | Outpatient (CLI) | payer MEDICAID, SELFPAY ==
[2020-05-14 13:15] LABS: Calculated LDL 72 mg/dL (<100); Cholesterol 148 mg/dL (<200); HDL Cholesterol 34 mg/dL (40-60); Triglyceride 210 mg/dL (<150)
== END 2020-05-14 03:46 | disposition home or self-care (01) ==
LOC: LOS 03:46
DX: E78.00 Pure hypercholesterolemia, unspecified (principal)
CPT/HCPCS: 36415; 80061

== ENCOUNTER 2020-05-15 01:21 | Outpatient (CLI) | payer MEDICAID, SELFPAY ==
--- NOTE | 2020-05-15 08:00 | DI.MAMMO_ITS ---
EXAM: MG MAMMO SCREENING CLINICAL HISTORY: screening,z12.39 TECHNIQUE: Bilateral full field digital CC and MLO mammographic images were obtained with 3D tomosyn thesis and utilizing computer aided detection (CAD). COMPARISON: Available for comparison. FINDINGS: Masses/Architectural Distortion: None seen. Microcalcifications: No suspicious pleomorphic-type are seen. Skin Thickening/Nipple Retraction: None. IMPRESSION: 1. No significant interval change with no specific features of malignancy noted. 2. Unless there is more urgent need, screening mammography is recommended, as per [place] [employer] guidelines. BI-RADS Category 1 - Negative Breast Density - Category B - Scattered areas of fibroglandular density Breast density category C or D implies that the patient has dense breast tissue. Dense breast tissue is very common and is not abnormal but dense breast tissue can make it harder to find cancer on a ma mmogram. Also, dense breast tissue may increase their breast cancer risk. This information about the result of the mammogram report was provided to the patient to raise their awareness. Use this report when you speak with the patient about their risks for breast cancer, which includes their family hist ory. At that time, you may recommend for more screening tests (Ultrasound or MRI) as they might be us eful based on their risk. A negative radiographic report should not delay biopsy if a dominant or clinically suspicious mass is present. Up to ten percent of cancers are not identified on mammography. A negative report may reinforce clinical impression. Adenosis and dense breasts may obscure an underlying neoplasm. False positive reports average 6 to 10%. Patient will receive a letter notifying them of these results.
== END 2020-05-15 01:41 ==
DX: Z12.31 Encounter for screening mammogram for malignant neoplasm of breast (principal)
CPT/HCPCS: 77063; 77067

== ENCOUNTER 2020-07-04 01:40 | Outpatient (CLI) | payer MEDICAID, SELFPAY ==
[2020-07-04 13:17] LABS: ALT 45 U/L (14-59); AST 32 U/L (15-37); Albumin 3.6 g/dL (3.4-5.0); Alkaline Phosphatase 82 U/L (46-116); Anion Gap 9.4 mmol/L (3-11); BUN 20 mg/dL (7-18); Bilirubin, Total 0.6 mg/dL (0.2-1.0); CO2 27.6 mmol/L (21.0-32.0); CREATININE 0.9 mg/dL (0.55-1.02); Calcium 9.1 mg/dL (8.5-10.1); Chloride 105 mmol/L (98-107); Glucose 113 mg/dL (74-106); Potassium 4.6 mmol/L (3.5-5.1); Sodium 142 mmol/L (136-145); TSH (W/Ref FT4) 0.01 uIU/mL (0.36-3.74)
[2020-07-04 13:19] LABS: Hemoglobin A1C 6.4 % (<5.7)
[2020-07-04 13:45] LABS: FREE T4 1.49 ng/dL (0.76-1.46)
== END 2020-07-04 01:41 | disposition home or self-care (01) ==
LOC: LOS 01:41
DX: I10 Essential (primary) hypertension (principal); E03.9 Hypothyroidism, unspecified; E11.65 Type 2 diabetes mellitus with hyperglycemia
CPT/HCPCS: 36415; 80053; 83036; 84439; 84443

== ENCOUNTER 2020-10-18 14:20 | Emergency (ER) | payer MEDICAID, SELFPAY ==
--- NOTE | 2020-10-18 14:15 | DI.CT_ITS ---
Exam(s) CT HEAD WO EXAM: CT HEAD WO CLINICAL HISTORY: head injury. TECHNIQUE: Imaging Protocol: Axial computed tomography images with coronal and sagittal reformatted images were created and reviewed COMPARISON: No exams were available for comparison FINDINGS: There are no skull fractures nor fluid in the visualized paranasal sinuses. There is no evidence of intracranial hemorrhage, mass effect, or shift of midline structures. There are no extra-axial fluid collections. The ventricles are not enlarged or shifted and there is no blo od within the ventricular system nor within the basal cisterns. IMPRESSION: No acute intracranial findings on this noninfused CT scan of the brain. RADIATION DOSE DELIVERED: 617.91mGy.cm Total DLP DATA REPOSITORY: All CT scans at this facility are submitted to the National Radiology Data Registry (NRDR) Dose Index Registry (DIR) with the [employer] (A[employer]). RADIATION OPTIMIZATION: All CT scans at this facility use at least one of these dose optimization te chniques: automated exposure control; mA and/or kV adjustment per patient size (includes targeted exa ms where dose is matched to clinical indication); or iterative reconstruction.
[2020-10-18 14:24] VITALS: BP 155/87; PULSE 95; TEMP 36.7; O2SAT 97
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
--- NOTE | 2020-10-18 14:58 | DI.VRAD_ITS ---
PROCEDURE INFORMATION: Exam: CT Head Without Contrast Exam date and time: 10/18/2020 2:23 PM Age: 45 years old Clinical indication: Other: Head injury TECHNIQUE: Imaging protocol: Computed tomography of the head without contrast. Radiation optimization: All CT scans at this facility use at least one of these dose optimization techniques: automated exposure control; mA and/or kV adjustment per patient size (includes targeted exams where dose is matched to clinical indication); or iterative reconstruction. COMPARISON: US THYROID 12/22/2018 11:33 AM FINDINGS: Brain: The ventricles and the cortical sulci are within normal limits. There is no evidence of acute hemorrhage, mass or shift. There is no evidence of an acute cortical or major vascular territory infarct. No abnormal extra-axial collections are identified. Cerebral ventricles: No significant ventricular enlargement/hydrocephalus. Paranasal sinuses: No significant sinus opacification or fluid level Mastoid air cells: No significant mastoid opacification Bones/joints: There is no acute bony abnormality Soft tissues: Subcutaneous soft tissues are unremarkable IMPRESSION: No acute findings. Dictated and Authenticated by: Natacha Tristan MD. Ordering:RENE Espinoza MD
[2020-10-18 15:40] VITALS: BP 133/65; PULSE 72; RESP 16; O2SAT 96
== END 2020-10-18 15:47 | disposition home or self-care (01) ==
PROVIDERS: Emergency Provider Nurse Practitioner Acute Care
DX: F07.81 Postconcussional syndrome (principal); R26.81 Unsteadiness on feet
CPT/HCPCS: 99284; 70450; 99283

== ENCOUNTER 2020-12-01 03:11 | Outpatient (CLI) | payer MEDICAID, SELFPAY ==
[2020-12-01 12:44] LABS: ALT 95 U/L (14-59); AST 119 U/L (15-37); Albumin 3.6 g/dL (3.4-5.0); Alkaline Phosphatase 106 U/L (46-116); Anion Gap 7.8 mmol/L (3-11); BUN 13 mg/dL (7-18); Bilirubin, Total 0.6 mg/dL (0.2-1.0); CO2 30.2 mmol/L (21.0-32.0); Calcium 9.4 mg/dL (8.5-10.1); Chloride 101 mmol/L (98-107); Estimated GFR 59.43 (mL/min/1.73m2); Glucose 238 mg/dL (74-106); Potassium 4.6 mmol/L (3.5-5.1); Sodium 139 mmol/L (136-145); TSH (W/Ref FT4) 21.55 uIU/mL (0.36-3.74); Total Protein 7.6 g/dL (6.4-8.2)
[2020-12-01 13:14] LABS: FREE T4 0.58 ng/dL (0.76-1.46)
[2020-12-01 14:18] LABS: Hemoglobin A1C 10.3 % (<5.7)
== END 2020-12-01 03:12 | disposition home or self-care (01) ==
LOC: LOS 03:11
DX: I10 Essential (primary) hypertension (principal); E11.65 Type 2 diabetes mellitus with hyperglycemia; E03.9 Hypothyroidism, unspecified; F33.1 Major depressive disorder, recurrent, moderate; G47.00 Insomnia, unspecified
CPT/HCPCS: 36415; 80053; 83036; 84439; 84443

== ENCOUNTER 2020-12-09 15:02 | Outpatient (REF) | payer MEDICAID, SELFPAY ==
--- NOTE | 2020-12-09 14:25 | PAPFT_PTH ---
PATIENT: Evita Singleton LOC: [facility] U#:[id number] AGE/SX: 45/F ROOM: RE12/09/[address]: Marcia Dickens APRN : 1975 BED: DIS: 12/09/2020 SPEC #: [id number] RECD: 12/09/20 18:58 STATUS: JOAQUIN REMihir #: [id number] SHERRIE: 12/09/20 14:[address]: Marcia Dickens DEPT: [facility] Cytology RECD BY: Aliya Squires Tissues: 1 - CX/ENDOCX FOR PAP SMEARS Procedures: PAP THIN PREP/UVM Screening HPV DNA PROBE Comments: [id number]
== END 2020-12-09 15:03 | disposition home or self-care (01) ==
LOC: LBN 15:02
DX: Z12.4 Encounter for screening for malignant neoplasm of cervix (principal); Z11.51 Encounter for screening for human papillomavirus (HPV)
CPT/HCPCS: 88142; 87624

== ENCOUNTER 2021-01-09 11:18 | Outpatient (REF) | payer MEDICAID, SELFPAY ==
[2021-01-10 16:10] LABS: COVID-19 RT-PCR UVMMC Result Negative (Negative)
== END 2021-01-09 11:19 | disposition home or self-care (01) ==
LOC: LBN 11:18
PROVIDERS: Visit Provider Nurse Practitioner Family
DX: Z20.822 Contact with and (suspected) exposure to COVID-19 (principal)
CPT/HCPCS: U0003

== ENCOUNTER 2021-01-16 12:56 | Outpatient (REF) | payer MEDICAID, SELFPAY | END 2021-01-16 12:57 | disposition home or self-care (01) | LOC: LBN 12:56 | PROVIDERS: Visit Provider Family Medicine | DX: J02.9 Acute pharyngitis, unspecified (principal) | CPT/HCPCS: 87070 ==

== ENCOUNTER 2021-03-24 18:47 | Outpatient (REF) | payer MEDICAID, SELFPAY | END 2021-03-24 18:48 | disposition home or self-care (01) | LOC: LBN 18:47 | PROVIDERS: Visit Provider Nurse Practitioner Family | DX: L98.8 Other specified disorders of the skin and subcutaneous tissue (principal) | CPT/HCPCS: 87077; 87070; 87186; 87205 ==

== ENCOUNTER 2021-03-25 13:11 | Outpatient (CLI) | payer MEDICAID, SELFPAY ==
--- NOTE | 2021-03-25 12:30 | DI.RAD_ITS ---
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 The there is marked soft tissue swelling adjacent to the lateral malleolu s. The ankle mortise is well maintained. There are mild degenerative changes of the joints of the a nkle. There is no gross erosive or destructive lesion to suggest the presence of osteomyelitis. IMPRESSION: No specific evidence of osteomyelitis at this time by plain film criteria. If there is a clinical briscoe spicion of osteomyelitis, additional evaluation with MRI would be recommended. RADIATION DOSE DELIVERED: Total DLP
== END 2021-03-25 13:31 ==
PROVIDERS: Visit Provider Nurse Practitioner Family
DX: E11.622 Type 2 diabetes mellitus with other skin ulcer (principal); L03.115 Cellulitis of right lower limb; L97.319 Non-pressure chronic ulcer of right ankle with unspecified severity
CPT/HCPCS: 73610

== ENCOUNTER 2021-04-08 17:58 | Outpatient (REF) | payer MEDICAID, SELFPAY ==
[2021-04-08 19:33] LABS: Bilirubin Negative (Negative); Blood Small (Negative); Clarity Cloudy (Clear); Glucose >=1000 mg/dL (Negative); Ketones Negative (Negative); Leukocyte Esterase Trace (Negative); Nitrite Positive (Negative); Specific Gravity >= 1.030 (1.005-1.025); Urobilinogen 0.2 EU/dL (Up TO 0.2); pH 5.5 (5-8)
[2021-04-08 19:41] LABS: Bacteria Many HPF (Negative); Epithelial Cells Negative HPF (Negative); RBC Negative HPF (0-2); WBC >50 HPF (0-5)
[2021-04-08 19:42] LABS: C & S Indicated? Yes; Casts Negative LPF (Negative); Crystals Many Amorphous HPF (Negative); Mucus Negative (Negative)
== END 2021-04-08 17:59 | disposition home or self-care (01) ==
LOC: LBN 17:58
PROVIDERS: Visit Provider Physician Assistant
DX: N39.0 Urinary tract infection, site not specified (principal)
CPT/HCPCS: 87077; 81003; 81015; 87086; 87186

== ENCOUNTER 2021-05-12 04:02 | Outpatient (CLI) | payer MEDICAID, SELFPAY ==
[2021-05-12 08:03] LABS: Abs Immature Grans 0.03 10^3/uL (0.0-0.06); Absolute Basophil Count 0.03 10^3/uL (0.0-0.2); Absolute Eosinophil Count 0.14 10^3/uL (0.0-0.7); Absolute Lymphocyte Count 2.12 10^3/uL (1.2-3.4); Absolute Neutrophil Count 4.43 10^3/uL (1.2-6.7); Basophils % 0.4; HCT 40.1 % (36.0-46.0); HGB 13.2 g/dL (11.2-15.7); Immature Grans % 0.4; Lymphocytes % 29.7; MCH 29.2 pg (27.0-33.0); MCHC 32.9 % (32.0-36.0); MCV 88.7 fL (80-95); MPV 11.8 fL (8.0-11.0); Monocytes % 5.6; Neutrophils % 61.9; Nucleated RBC 0 %; Platelet Count 284 10^3/uL (130-400); RBC 4.52 10^6/uL (3.93-5.22); RDW 12.3 % (11.7-14.6); RDW-SD 39.9 fL; WBC 7.15 10^3/uL (4.4-10.8)
[2021-05-12 08:06] LABS: ALT 72 U/L (14-59); AST 144 U/L (15-37); Albumin 3.6 g/dL (3.4-5.0); Alkaline Phosphatase 156 U/L (46-116); Anion Gap 10.7 mmol/L (3-11); BUN 13 mg/dL (7-18); Bilirubin, Total 0.5 mg/dL (0.2-1.0); CO2 25.3 mmol/L (21.0-32.0); CREATININE 1.1 mg/dL (0.55-1.02); Calcium 9.5 mg/dL (8.5-10.1); Chloride 97 mmol/L (98-107); Estimated GFR 53.01 (mL/min/1.73m2); Glucose 443 mg/dL (74-106); Potassium 4.4 mmol/L (3.5-5.1); Sodium 133 mmol/L (136-145); TSH (W/Ref FT4) 11.78 uIU/mL (0.36-3.74); Total Protein 8.6 g/dL (6.4-8.2)
[2021-05-12 08:16] LABS: Hemoglobin A1C 12.9 % (<5.7)
[2021-05-12 08:25] LABS: FREE T4 0.75 ng/dL (0.76-1.46)
== END 2021-05-12 04:03 | disposition home or self-care (01) ==
LOC: LBO 04:02
PROVIDERS: Nurse Practitioner Family; Visit Provider Nurse Practitioner Family
DX: E11.65 Type 2 diabetes mellitus with hyperglycemia (principal); E03.9 Hypothyroidism, unspecified; E05.90 Thyrotoxicosis, unspecified without thyrotoxic crisis or storm; G47.00 Insomnia, unspecified; I10 Essential (primary) hypertension; L03.115 Cellulitis of right lower limb
CPT/HCPCS: 36415; 80053; 83036; 84439; 84443; 85025

== ENCOUNTER 2021-05-28 01:23 | Emergency (ER) | payer MEDICAID, SELFPAY ==
[2021-05-28 01:23] VITALS: BP 149/90; PULSE 108; RESP 16; TEMP 36.4; O2SAT 97
[2021-05-28] MEDS: Silver Nitrate Stick 1 EACH (01:42)
[2021-05-28] MEDS: Cellulose,Oxidized 2X3 PKT 1 EACH MC (01:42)
--- NOTE | 2021-05-28 01:45 | W.ED.GENAD ---
Discharge Plan Disposition Patient Disposition: HOME Condition: Improving Discharge Details Clinical Impression: Skin ulcer Primary Care Provider: Marcia Dickens ED Provider: Kentrell Arnold Home Meds and New Rx's Prescriptions: Continued hydrochlorothiazide 25 mg tablet 25 mg PO DAILY Qty: 90 3RF cephalexin 500 mg capsule 500 mg PO QID Qty: 28 0RF Rx Instructions: Take 1 capsule every 6 hours x 7 days (DME) Dexcom G6 Sensor Device See Rx Instructions .ROUTE .MEDSUPPLY Qty: 3 12RF Rx Instructions: As directed Vyvanse 40 mg capsule 40 mg PO DAILY MDD 40mg Qty: 30 0RF topiramate [Topamax] 25 mg tablet 25 mg PO QHS Qty: 30 3RF hydroxyzine HCl 25 mg tablet 25 mg PO Q6H PRN (Reason: headaches) Qty: 30 1RF fluticasone propionate 50 mcg/actuation spray,suspension 1 spray intranasal BID Qty: 16 1RF Rx Instructions: administer into each nostril atorvastatin [Lipitor] 40 mg tablet 40 mg PO HS Qty: 90 3RF FreeStyle Lite Strips Strip See Rx Instructions .ROUTE .COMPLEX Qty: 400 12RF Dose Instruction: TEST three times a day and if needed Rx Instructions: TEST three times a day and if needed (DME) Dexcom G6 Director Of Sports Medicine Misc See Rx Instructions .ROUTE .MEDSUPPLY Qty: 1 0RF Rx Instructions: As directed (DME) Dexcom G6 Transmitter Device See Rx Instructions .ROUTE .MEDSUPPLY Qty: 1 4RF Rx Instructions: As directed cyanocobalamin (vitamin B-12) 500 mcg tablet 500 mcg PO DAILY Qty: 90 4RF fluoxetine 40 mg capsule 40 mg PO DAILY Qty: 90 4RF glucose [Dex4 Glucose] 4 gram tablet,chewable 4 g PO Q15M PRN (Reason: hypoglycemia) Qty: 7 2RF Rx Instructions: until response insulin aspart U-100 [Novolog Flexpen U-100 Insulin] 100 unit/mL (3 mL) insulin pen See Rx Instructions Sub-Q TID Qty: 15 3RF Hold Instructions: Home Medication placed on hold at Doctor's office Dose Instruction: Units determined by FS and carb intake Sub-Q TID; E11.65 Rx Instructions: Units determined by FS and carb intake Sub-Q TID; E11.65 Tresiba FlexTouch U-200 200 unit/mL (3 mL) insulin pen 80 - 100 unit subcut DAILY Qty: 45 3RF Rx Instructions: As directed (DME) lancets 28 gauge misc 1 ea Miscellaneous TID Qty: 50 3RF Rx Instructions: FOR FREESTYLE LITE METER. PT USES INSULIN. DIAGNOSIS CODE E11.65 levocetirizine [Xyzal] 5 mg tablet 5 mg PO PRN Qty: 30 3RF Hold Instructions: Home Medication placed on hold at Doctor's office levothyroxine 200 mcg tablet 200 mcg PO DAILY Qty: 90 3RF lisinopril 2.5 mg tablet 5 mg PO BID Qty: 180 3RF loratadine 10 mg tablet 10 mg PO DAILY Qty: 90 3RF magnesium oxide 400 mg magnesium capsule 400 mg PO DAILY Qty: 90 3RF metformin 500 mg tablet 500 mg PO BID Qty: 180 3RF Rx Instructions: 1 tab every 12 hours naproxen 500 mg tablet 500 mg PO BID MDD 1500mg Qty: 90 4RF Rx Instructions: Take 2 tabs every AM and 1 tab every evening norethindrone acetate 5 mg tablet 5 mg PO DAILY Qty: 90 4RF Rx Instructions: Take 1 tab PO daily nystatin 100,000 unit/gram powder 1 applic Topical TID PRN (Reason: rash) Qty: 60 3RF Rx Instructions: Apply to groin rash three times per day in between steroid cream applications. olopatadine 0.1 % drops 1 drp Ophthalmic BID PRN (Reason: atopic conjunctivitis) Qty: 1 3RF pantoprazole 40 mg tablet,delayed release (DR/EC) 40 mg PO DAILY Qty: 90 3RF (DME) pen needle, diabetic [Pen Needle] 31 gauge x 5/16 needle 1 ea Miscellaneous QID Qty: 400 3RF Rx Instructions: Dx E11.65 Pt using long- acting and mealtime insulin. sumatriptan succinate [Imitrex] 50 mg tablet 50 mg PO PRN MDD 200mg Qty: 30 3RF Rx Instructions: triamcinolone acetonide 0.1 % cream 1 applic Topical BID PRN (Reason: rash) Qty: 30 2RF Rx Instructions: Apply to rash on breast 0.025% valacyclovir 1 gram tablet 1,000 mg PO BID PRN (Reason: Herpes outbreak) Qty: 30 1RF Rx Instructions: Take 1 tab two times per day for 3 days PRN liraglutide 0.6 mg/0.1 mL (18 mg/3 mL) pen injector 1.8 mg subcut DAILY Qty: 9 4RF GlucaGen HypoKit 1 mg recon soln 1 mg subcut Q20M PRN (Reason: hypoglycemia) Qty: 1 0RF Rx Instructions: until target blood sugar attained levothyroxine 25 mcg tablet 50 mcg PO DAILY Qty: 90 3RF Rx Instructions: Take WITH 200mcg for a total of 250mcg daily, first thing in the AM on empty stomach (12/05/20- dose increase) mupirocin 2 % ointment 1 applic TP BID Qty: 44 3RF Discharge Instructions Additional Instructions: Continue your prescribed medications. Follow-up with primary care tomorrow as planned. I have placed a referral for you to the general surgery clinic for evaluation of your skin ulcer. Please do not continue picking at the ulcerated area. Leave current bandage in place for 48 hours then may gently remove and hand wash with water around the area. May leave the Surgicel in place for up to 1 week as it will eventually fall off. Apply direct pressure to the area with fingertip for 15-minute if you have recurrent bleeding. Your blood glucose remains high and you need to continue your diabetes medications. Medical Decision Making 46-year-old female with a history of skin picking, presents with history of lesion on the vertex of her scalp that there is an ulceration she continues to pick at. Approximately 2-1/2 cm in diameter. Tonight she picked up to the point of bleeding with profuse bloody discharge at home. Hemostasis was achieved with pressure by EMS on route. Patient arrives alert and in no distress. She has a punctate bleeding vessel that responds to pressure. Surgicel was placed followed by a folded 2 x 2 and then a Mepilex covering with cessation of bleeding. I will refer her to general surgery for follow-up. I will ask her to leave the current dressing on for 48 hours and then gently remove. She understands she needs to stop picking at the area. Patient had noted some generalized weakness, hyperglycemia. States she has her medications but has been noncompliant with them for approximately 1 month. Screening laboratories were obtained: CBC is reassuring. Patient's chemistries show hyperglycemia without anion gap. She understands she has been noncompliant with her diabetes. She is improved following IV fluids in the ER and will resume her routine medications. She is to follow-up as planned tomorrow in primary care clinic for recheck. I have added an A1c to the patient's labs. Lab Data Lab results reviewed: Yes I reviewed the patient's lab results. Labs: Laboratory Tests Range/Units 05/28/21 05/28/21 01:46 01:46 WBC (4.4-10.8) 10^3/uL 6.95 RBC (3.93-5.22) 10^6/uL 4.06 Hgb (11.2-15.7) g/dL 11.8 Hct (36.0-46.0) % 36.7 MCV (80-95) fL 90.4 MCH (27.0-33.0) pg 29.1 MCHC (32.0-36.0) % 32.2 RDW (11.7-14.6) % 12.3 Plt Count (130-400) 10^3/uL 255 MPV (8.0-11.0) fL 11.2 H Sodium (136-145) mmol/L 135 L Potassium (3.5-5.1) mmol/L 3.7 Chloride (98-107) mmol/L 99 Carbon Dioxide (21.0-32.0) mmol/L 25.8 Anion Gap (3-11) mmol/L 10.2 BUN (7-18) mg/dL 13 Creatinine (0.55-1.02) mg/dL 1.1 H Estimated GFR/1.73 m2 (mL/min/1.73m2) 53.01 Glucose (74-106) mg/dL 478 H Calcium (8.5-10.1) mg/dL 9.0 HPI General Mode of arrival: EMS. Date/Time Provider Initiated Documentation: 05/28/21 01:25. Limitations to Documentation: no limitations. Information obtained by: patient and EMS. History of Present Illness 46 year old F presents to the emergency department with the chief complaint of Scalp wound with bleeding, described as mild, and is localized to the head. Patient reports no radiation. Patient started experiencing this week(s) and it has been intermittent. improves with No relieving factors improve symptom(s), No exacerbating factors reported . Patient notes denies headaches. Patient did receive the following treatments prior to arrival, none Related Data Home Medications Medication Instructions Recorded Confirmed atorvastatin 40 mg tablet (Lipitor) 40 mg PO HS #90 tab-cap 06/16/20 05/15/21 blood sugar diagnostic (FreeStyle See Rx Instructions .ROUTE 06/16/20 05/15/21 Lite Strips) .COMPLEX #400 strip blood-glucose meter,continuous #1 each 06/16/20 05/15/21 (Dexcom G6 Director Of Sports Medicine) blood-glucose transmitter (Dexcom #1 each 06/16/20 05/15/21 G6 Transmitter) cyanocobalamin (vitamin B-12) 500 500 mcg PO DAILY #90 tab 06/16/20 05/15/21 mcg tablet fluoxetine 40 mg capsule 40 mg PO DAILY #90 cap 06/16/20 05/15/21 glucose 4 gram chewable tablet 4 g PO Q15M PRN #7 tab 06/16/20 05/15/21 (Dex4 Glucose) insulin aspart U-100 100 unit/mL See Rx Instructions SUB-Q TID #15 06/16/20 05/15/21 (3 mL) subcutaneous pen (Novolog ml Flexpen U-100 Insulin aspart) insulin degludec 200 unit/mL (3 80 - 100 unit (0.4 - 0.5 mL) 06/16/20 05/15/21 mL) subcutaneous pen (Tresiba SUBCUT DAILY #45 ml FlexTouch U-200 insulin) lancets 28 gauge #50 each 06/16/20 05/15/21 levocetirizine 5 mg tablet (Xyzal) 5 mg PO PRN #30 tab-cap 06/16/20 05/15/21 levothyroxine 200 mcg tablet 200 mcg PO DAILY #90 tab-cap 06/16/20 05/15/21 liraglutide 0.6 mg/0.1 mL (18 mg/3 1.8 mg (0.3 mL) SUBCUT DAILY #9 ml 06/16/20 05/15/21 mL) subcutaneous pen injector lisinopril 2.5 mg tablet 5 mg PO BID #180 tab-cap 06/16/20 05/15/21 loratadine 10 mg tablet 10 mg PO DAILY #90 tab-cap 06/16/20 05/15/21 magnesium oxide 400 mg PO DAILY #90 cap 06/16/20 05/15/21 metformin 500 mg tablet 500 mg PO BID #180 tab 06/16/20 05/15/21 naproxen 500 mg tablet 500 mg PO BID #90 tab MDD 1500mg 06/16/20 05/15/21 norethindrone acetate 5 mg tablet 5 mg PO DAILY #90 tab-cap 06/16/20 05/15/21 nystatin 100,000 unit/gram topical 1 applic TOPICAL TID PRN #60 gm 06/16/20 05/15/21 powder olopatadine 0.1 % eye drops 1 drp OPHTHALMIC BID PRN #1 bottle 06/16/20 05/15/21 pantoprazole 40 mg tablet,delayed 40 mg PO DAILY #90 tab-cap 06/16/20 05/15/21 release pen needle, diabetic 31 gauge x #400 each 06/16/20 05/15/2116 (Pen Needle) sumatriptan succinate 50 mg tablet 50 mg PO PRN #30 tab-cap MDD 200mg 06/16/20 05/15/21 (Imitrex) triamcinolone acetonide 0.1 % 1 applic TOPICAL BID PRN #30 g 06/16/20 05/15/21 topical cream valacyclovir 1 gram tablet 1,000 mg PO BID PRN #30 tab 06/16/20 05/15/21 glucagon (human recombinant) 1 mg 1 mg SUBCUT Q20M PRN #1 ea 06/17/20 05/15/21 solution for injection (GlucaGen HypoKit) hydroxyzine HCl 25 mg tablet 25 mg PO Q6H PRN #30 tab 11/24/20 05/15/21 topiramate 25 mg tablet (Topamax) 25 mg PO QHS #30 tab 11/24/20 05/15/21 hydrochlorothiazide 25 mg tablet 25 mg PO DAILY #90 tab-cap 11/25/20 05/15/21 levothyroxine 25 mcg tablet 50 mcg PO DAILY #90 tab 12/05/20 05/15/21 mupirocin 2 % topical ointment 1 applic TP BID #44 g 12/08/20 05/15/21 fluticasone propionate 50 1 spray INTRANASAL BID #16 g 01/16/21 05/15/21 mcg/actuation nasal spray,suspension cephalexin 500 mg capsule 500 mg PO QID #28 cap 03/24/21 05/15/21 blood-glucose sensor (Dexcom G6 #3 each 04/29/21 05/15/21 Sensor) lisdexamfetamine 40 mg capsule 40 mg PO DAILY #30 cap MDD 40mg 04/29/21 05/15/21 (Vyvanse) Previous Rx's Medication Instructions Recorded atorvastatin 40 mg tablet (Lipitor) 40 mg PO HS #90 tab-cap 06/16/20 blood sugar diagnostic (FreeStyle See Rx Instructions .ROUTE 06/16/20 Lite Strips) .COMPLEX #400 strip blood-glucose meter,continuous #1 each 06/16/20 (Dexcom G6 Director Of Sports Medicine) blood-glucose transmitter (Dexcom #1 each 06/16/20 G6 Transmitter) cyanocobalamin (vitamin B-12) 500 500 mcg PO DAILY #90 tab 06/16/20 mcg tablet fluoxetine 40 mg capsule 40 mg PO DAILY #90 cap 06/16/20 glucose 4 gram chewable tablet 4 g PO Q15M PRN #7 tab 06/16/20 (Dex4 Glucose) insulin aspart U-100 100 unit/mL See Rx Instructions SUB-Q TID #15 06/16/20 (3 mL) subcutaneous pen (Novolog ml Flexpen U-100 Insulin aspart) insulin degludec 200 unit/mL (3 80 - 100 unit (0.4 - 0.5 mL) 06/16/20 mL) subcutaneous pen (Tresiba SUBCUT DAILY #45 ml FlexTouch U-200 insulin) lancets 28 gauge #50 each 06/16/20 levocetirizine 5 mg tablet (Xyzal) 5 mg PO PRN #30 tab-cap 06/16/20 levothyroxine 200 mcg tablet 200 mcg PO DAILY #90 tab-cap 06/16/20 liraglutide 0.6 mg/0.1 mL (18 mg/3 1.8 mg (0.3 mL) SUBCUT DAILY #9 ml 06/16/20 mL) subcutaneous pen injector lisinopril 2.5 mg tablet 5 mg PO BID #180 tab-cap 06/16/20 loratadine 10 mg tablet 10 mg PO DAILY #90 tab-cap 06/16/20 magnesium oxide 400 mg PO DAILY #90 cap 06/16/20 metformin 500 mg tablet 500 mg PO BID #180 tab 06/16/20 naproxen 500 mg tablet 500 mg PO BID #90 tab MDD 1500mg 06/16/20 norethindrone acetate 5 mg tablet 5 mg PO DAILY #90 tab-cap 06/16/20 nystatin 100,000 unit/gram topical 1 applic TOPICAL TID PRN #60 gm 06/16/20 powder olopatadine 0.1 % eye drops 1 drp OPHTHALMIC BID PRN #1 bottle 06/16/20 pantoprazole 40 mg tablet,delayed 40 mg PO DAILY #90 tab-cap 06/16/20 release pen needle, diabetic 31 gauge x #400 each 06/16/2007/20 (Pen Needle) sumatriptan succinate 50 mg tablet 50 mg PO PRN #30 tab-cap MDD 200mg 06/16/20 (Imitrex) triamcinolone acetonide 0.1 % 1 applic TOPICAL BID PRN #30 g 06/16/20 topical cream valacyclovir 1 gram tablet 1,000 mg PO BID PRN #30 tab 06/16/20 glucagon (human recombinant) 1 mg 1 mg SUBCUT Q20M PRN #1 ea 06/17/20 solution for injection (GlucaGen HypoKit) hydroxyzine HCl 25 mg tablet 25 mg PO Q6H PRN #30 tab 11/24/20 topiramate 25 mg tablet (Topamax) 25 mg PO QHS #30 tab 11/24/20 hydrochlorothiazide 25 mg tablet 25 mg PO DAILY #90 tab-cap 11/25/20 levothyroxine 25 mcg tablet 50 mcg PO DAILY #90 tab 12/05/20 mupirocin 2 % topical ointment 1 applic TP BID #44 g 12/08/20 fluticasone propionate 50 1 spray INTRANASAL BID #16 g 01/16/21 mcg/actuation nasal spray,suspension cephalexin 500 mg capsule 500 mg PO QID #28 cap 03/24/21 blood-glucose sensor (Dexcom G6 #3 each 04/29/21 Sensor) lisdexamfetamine 40 mg capsule 40 mg PO DAILY #30 cap MDD 40mg 04/29/21 (Vyvanse) Allergies Allergy/AdvReac Type Severity Reaction Status Date / Time Sulfa (Sulfonamide Allergy Severe Anaphylaxsi Verified 05/28/21 01:41 Antibiotics) s latex Allergy Intermediate Hives Verified 05/28/21 01:41 fentanyl AdvReac Intermediate went Verified 05/28/21 01:41 outside of her body, felt uncomfortable zolpidem tartrate AdvReac Mild sleep walks Verified 05/28/21 01:41 [From Ambien] Dust, cat dander Allergy Intermediate Hives Uncoded 05/28/21 01:41 Environmental Allergies Allergy Intermediate Rash Uncoded 05/28/21 01:41 General Stated Complaint: HeadInjury RODNEY: 3 Review of Systems Narrative: Has a habit of picking at skin lesions. Has not been compliant with medications. Has not recently been ill. No bleeding disorder. 8 systems were reviewed and otherwise negative [facility] All Active Problems (Updated 05/28/21 @ 01:52 by Kentrell Arnold MD) Skin ulcer (Acute) Foot ulcer (Acute) Diabetic retinopathy (Acute ~01/01/21) 01/01/21 MILD BACKGROUND RETINOPATHY-DR. 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 Genital herpes HSV-1 primary outbreak. Surgical History Bladder Surgery (~2002) section 1999 & 2010 Cholecystectomy (~2005) CRANIO/MAXILLAFACIAL SURGERY (~2007) Endometrial Biopsy 12/24/13-[facility] History of bladder surgery History of section History of gynecological procedure Status post cholecystectomy Tooth extraction 11/18- EXTRACTION Family History Mother No problems noted. Father Alcohol abuse Prostate cancer Sister No problems noted. Brother Stroke x2 (five years apart) Maternal Grandfather Essential hypertension Heart disease Hyperlipidemia Paternal Grandfather , AGE 57 Myocardial infarction Brain tumor Maternal Grandmother , AGE 85 Essential hypertension Paternal Grandmother , AGE 85 Personal history of malignant neoplasm COLON MATERNAL AUNT Essential hypertension Cancer MATERNAL UNCLE Essential hypertension Social History Smoking/Tobacco Use Status: Former Tobacco Use Quit Date: 03/07/10 Pack-years: 10 Second Hand Exposure: Yes Smoking risk assessment performed?: Yes Alcohol Intake: former Drug use: Never Substance use type: former substance user Household members: other Details: 2 Number of Children: 4 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 Pets and animals: Yes Pets and animals: cat(s) Current gender identity: female What type of physical activity do you participate in: walking and swimming Duration: 15-30 minutes/day Frequency: 1-2 times per week Jailyn/Caodaism: No preference Special jailyn needs: Yes (SINGING) Seatbelt use: always Helmet use: Yes Helmet use: always Do you feel safe at home: Yes Do you feel safe in your relationship?: Yes Exam Narrative Exam Narrative: GEN: awake, alert, oriented 3. Pleasant, well groomed, interactive. HEAD: Normocephalic, at the vertex there is a approximately quarter size round ulceration with a punctate focus of bleeding. ENT: Mucous membranes moist, oropharynx unremarkable, External ear exam unremarkable EYES: PERRL, EOMI NECK: Full ROM, no AYAN, no menigismus CHEST/RESP: No respiratory distress EXT: Full ROM, no edema, no rash Neuro: Grossly normal neurologic exam, conversant, interactive. Psych: Speech fluent, thoughts congruent, affect normal Course Vital Signs Vital signs: Vital Signs Temperature 36.4 C L 05/28/21 01:23 Pulse 108 H 05/28/21 01:23 Respiratory Rate 16 05/28/21 01:23 Blood Pressure 149/90 H 05/28/21 01:23 Pulse Oximetry 97 05/28/21 01:23 Temperature 36.4 C L 05/28/21 01:23 Temperature Source Skin 05/28/21 01:23 Pulse 108 H 05/28/21 01:23 Respiratory Rate 16 05/28/21 01:23 Respiratory Effort 05/28/21 01:39 Respiratory Depth Normal 05/28/21 01:39 Respiratory Pattern Normal 05/28/21 01:39 Blood Pressure 149/90 H 05/28/21 01:23 Blood Pressure Position Sitting 05/28/21 01:23 Pulse Oximetry 97 05/28/21 01:23 Oxygen Delivery Method Room Air 05/28/21 01:23 Oxygen Flow Rate 0 05/28/21 01:23
[2021-05-28 01:51] LABS: HCT 36.7 % (36.0-46.0); HGB 11.8 g/dL (11.2-15.7); MCH 29.1 pg (27.0-33.0); MCHC 32.2 % (32.0-36.0); MCV 90.4 fL (80-95); MPV 11.2 fL (8.0-11.0); Platelet Count 255 10^3/uL (130-400); RBC 4.06 10^6/uL (3.93-5.22); RDW 12.3 % (11.7-14.6); RDW-SD 40.5 fL; WBC 6.95 10^3/uL (4.4-10.8)
[2021-05-28 02:05] LABS: Anion Gap 10.2 mmol/L (3-11); BUN 13 mg/dL (7-18); CO2 25.8 mmol/L (21.0-32.0); CREATININE 1.1 mg/dL (0.55-1.02); Chloride 99 mmol/L (98-107); Estimated GFR 53.01 (mL/min/1.73m2); Glucose 478 mg/dL (74-106); Potassium 3.7 mmol/L (3.5-5.1); Sodium 135 mmol/L (136-145)
[2021-05-28 02:33] LABS: Hemoglobin A1C 13.2 % (<5.7)
== END 2021-05-28 02:25 | disposition home or self-care (01) ==
LOC: ER 02:11
PROVIDERS: Emergency Provider Emergency Medicine
DX: L98.498 Non-pressure chronic ulcer of skin of other sites with other specified severity (principal)
CPT/HCPCS: 80048; 85027; 99283; 83036; 99282

== ENCOUNTER 2021-05-30 17:36 | Outpatient (REF) | payer MEDICAID, SELFPAY ==
[2021-06-01 14:52] LABS: COVID-19 RT-PCR UVMMC Result Negative (Negative)
== END 2021-05-30 17:37 | disposition home or self-care (01) ==
LOC: LBN 17:36
PROVIDERS: Visit Provider Physician Assistant
DX: Z20.822 Contact with and (suspected) exposure to COVID-19 (principal); R09.89 Other specified symptoms and signs involving the circulatory and respiratory systems
CPT/HCPCS: U0003

== ENCOUNTER 2021-12-17 15:04 | Outpatient (REF) | payer MEDICAID, SELFPAY ==
--- OUTSIDE RECORDS SUMMARY | 2021-12-17 15:06 | XMS_ITS | Clinical Summary ---
:1975 Author Organization [facility] [place] [address] Care Team Providers Name Role Phone Marcia Dickens APRN Primary Care Provider Allergies Active Allergy Reactions Severity Noted Date Comments Adhesive Tape 04/11/2019 Other reaction (s): Unknown Zolpidem Other (See Comments) Medium 11/24/2016 Sleep w alks Cat Dander 04/11/2019 Other reaction( s): Unknown Fentanyl Other (See Comments) High 10/18/2016 Feels l imp and as if outside of hers elf Latex Anaphylaxis High Sulfa (Sulfonamide Anaphylaxis, Hives High Antibiotics) Medications Medication Sig Dispensed Refills Start End Date Status Date multivitamin (THERAGRAN) Take 1 tablet by 0 Active tablet mouth daily. triamcinolone (KENALOG) Apply topically 2 30 g 1 07/19/19 1 Active 0.025 % cream times daily. 3 Levocetirizine (XYZAL) 5 Take 1 tablet by 30 tablet 11 09/21/19 1 Active mg Tab mouth daily. 3 hydrOXYzine (ATARAX) 25 Take 1 tablet by 30 tablet 12 Active mg tablet mouth 3 times 3 daily as needed for Itching. Do not operate machinery on this medication. SUMAtriptan (IMITREX) 50 Take 1 tablet by 18 tablet 0 12/26/19 1 Active mg tablet mouth as needed 3 for Migraine (Take 50 mg at onset of migraine. May take additional 50 mg in 2 h if no relief). Pantoprazole (PROTONIX) Take 40 mg by 90 each 3 Active [address] for mouth daily. 4 susp in PacketIndications: GERD (gastroesophageal reflux disease) atorvastatin (LIPITOR) Take 40 mg by 0 Active 40 mg Tablet mouth daily. 5 insulin aspart (NOVOLOG Inject 4-20 Units 0 05/05/19 1 Active FLEXPEN) Insulin Pen subcutaneously 3 6 times daily. hydroCHLOROthiazide Take 12.5 mg by 0 Active (HYDRODIURIL) 12.5 mg mouth daily. 7 Tablet loratadine (CLARITIN) 10 Take 10 mg by 0 Active mg Tablet mouth daily. 7 naproxen (NAPROSYN) 500 Take 500 mg by 0 Active mg Tablet mouth 2 times 7 daily. metFORMIN Take 2 tablets by 360 tablet 3 A ctive (GLUCOPHAGE-XR) 500 mg mouth 2 times 7 Tablet Sustained Release daily. 24 hr levothyroxine Take 1 tablet by 102 tablet 3 Active (SYNTHROID) 200 mcg mouth daily. 1 8 Tablet tablet daily 6 days per week and 2 tablets one day per week. Additional Information Patient taking differently: 200 mcg Oral DAILY, Pt currently taking 225 mcg daily, Reported on 08/27/2020 liraglutide (VICTOZA) 0.6 Inject 1.8 mg 3 Syringe 11 06/28/2017 Active mg/0.1 mL (18 mg/3 mL) Pen subcutaneously daily. ICD Injector 10 Code: E11.69 insulin glargine 300 Inject 64 Units 6 Syringe 3 10/14/2017 Active unit/mL (3 mL) Insulin Pen subcutaneously daily. mupirocin (BACTROBAN) 2 % Mix mupirocin and 30 g 2 2020 Active Ointment triamcinolone and apply to the lesion on the scalp twice a day. triamcinolone (KENALOG) Mix mupirocin and 80 g 0 05/28/19 21 Active 0.1 % Ointment triamcinolone and apply to the lesion on the scalp twice a day. Additional Information Patient not taking. Reported on 08/27/2020 cyanocobalamin, vitamin B-12, 500 every 24 hours. 0 Active mcg Tablet, Chewable leuprolide, 3month,-norethind every 24 hours. 0 Active 11.25 mg -5 mg (90) Kit. Syringe & Tablet Dexcom G6 Restaurant Expeditor Misc TEST FOUR TIMES A DAY 0 0 06/16/2020 Active DIRECTED Dexcom G6 Sensor Device TEST FOUR TIMES A DAY 0 0 06/16/2020 Active DIRECTED Dexcom G6 Transmitter Device TEST FOUR TIMES A DAY 0 07/06/2020 Active DIRECTED glucose 4 gram Tablet, Chewable Take by mouth. 0 02/2021 Active insulin degludec 200 unit/mL (3 Inject 80-100 Units 0 06/16/2020 Active mL) Insulin Pen subcutaneously. lisdexamfetamine (VYVANSE) 40 mg Take by mouth. 0 Active Capsule magnesium oxide (Mag-Ox) 400 mg TAKE 1 TABLET BY MOUTH EVERY 0 05/09/2020 Active (241.3 mg magnesium) Tablet DAY nystatin (MYCOSTATIN) Powder APPLY TO GROIN RASH 3 TIMES 0 06/17/2020 Active A DAY IN BETWEEN STEROID CREAM APPLICATIONS valACYclovir (VALTREX) 1 gram TAKE 1 TABLET ORALLY TWICE A 0 06/17/2020 Active Tablet DAY FOR 3 DAYS NEEDED FOR HERPES OUTBREAK FLUoxetine (PROzac) 40 mg Capsule TAKE ONE CAPSULE BY MOUTH 0 06/17/2020 Active EVERY DAY FOR DEPRESSION levothyroxine (Synthroid) 25 mcg TAKE 2 TABLETS BY MOUTH 0 05/16/2020 Active Tablet EVERY MORNING ON AN EMPTY STOMACH WITH A 200 MICROGRAM TABLET lisinopriL (Prinivil;Zestril) 2.5 TAKE TWO TABLETS BY MOUTH 0 06/17/2020 Active mg Tablet TWICE A DAY Active Problems Problem Noted Date Vulvar abscess 09/29/2016 Chronic urticaria 09/21/2012 Overview: Formatting of this note is dif ferent from the original. Patient has hives a couple of times per week associated with the generalized pruritus. They last less than 24 hours. They gomze not leave any bruises or scars. Reviewed labs from: Component Latest Ref Rng 06/07/2012 10/04/2011 TSH 0.27 - 4.20 mcIU/mL 7.77 (H) 3.93 Component Latest Ref Rng 06/07/2012 Glucose Fasting 65 - 99 mg/dL 108 (H) BUN 8 - 18 mg/dL 13 Creatinine 0.70 - 1.20 mg/dL 0.80 Sodium 135 - 145 mmol/L 142 Potassium 3.5 - 5.0 mmol/L 4.1 Chloride 98 - 107 mmol/L 105 CO2 22 - 31 mmol/L 28 Anion Gap 5 - 15 mmol/L 9 Calcium 8.5 - 10.5 mg/dL 9.0 Total Protein 6.4 - 8.3 gm/dL 7.1 Albumin 3.2 - 5.2 gm/dL 4.1 AST 0 - 30 unit/L 44 (H) ALT 0 - 30 unit/L 34 (H) Alk Phos 40 - 104 unit/L 68 Total Bilirubin 0.2 - 1.3 mg/dL 0.5 Bili, Direct 0.0 - 0.3 mg/dL 0.1 Estimated GFR >=60 >60 Last Assessment & Plan: Most cases of CU are idiopathic. Allergi es and underlying systemic disorders of the thyroid, liver and kidneys can sometimes present with hives. In Ms. Sinlgeton' case, thyroid disorder may be contributing to her hives. Autoimmune thyroid disorder is associated with hives. - Start Xyzal 5mg daily. Stop Zyrtec. - Start Atarax - If not well controlled on Xyzal 5mg da jennifer may need to increase it to BID - Continue to follow up with PCP for man agement of elevated TSH. If TSH continues to increase or if hives persist despite antihistamine therapy, would recommend a trial of increased dose of Synthroid. Angioedema 09/20/2012 Overview: One episode of angioedema of the lip abo ut two months ago. Lasted about one hour. She was on lisinopril about two weeks prior to the swelling episodes. Two days ago had swelling of the corner of her lip and it lasted less than 5 minutes. No difficulty breathing or SOB. Last Assessment & Plan: Most likely related to JOSE inhibitors. A CE inhibitors can cause swelling episodes up to 1 year after discontinuing medication. Hereditary or acquired angioedema and monoclonal proteinemia are less likely. - Will check: Protein Electrophoresis, serum C4 Complement C1 Esterase Inhibitor Antigen C1 Esterase Inhibitor, Functional - Avoid NSAIDs and JOSE inhbitors HALEY (obstructive sleep apnea) 05/28/2012 Overview: 01/2009 - diagnosed with severe obstruct royce sleep apnea, started on CPAP at 10 mm water with excellent control reported in follow up. Stopped using CPAP subsequently. 05/2012 - referred to sleep center for a nother eval Depression GERD (gastroesophageal reflux disease) Hypothyroidism Overview: 07/10/10: Restarted on pre- dose synthroid 125mcg BMI 40.0-44.9, adult Diabetes mellitus type 2 in obese Overview: 2007: Hgb A1C up to 6.5, started on metf ormin [id number]: Hgb A1C <6.1 2009 : Metformin stopped, put o n insulin by [employer] 07/10/10 Post-: insulin stopped and restarted on pre-pergnancy metformin 500mg QD ->Will be monitoring sugars fasting /1hr post-prandial. Given referral to Endocrinology. 07/2010: Saw Sandy Ashford, kept on met formin 500 BID, Hgb A1C 5.8 12/2010: HgbA1c of 5.8 in setting of lif e style modifications, metformin held, plan to follow up in 3 months Hypertension Overview: Meds stopped in 2009 Resolved Problems Problem Noted Date Resolved Date Idiopathic urticaria - by history 06/04/20132016 Pruritus 09/20/2012 09/29/2016 Overview: Generalized pruritus for the last year. Involves entire body. Stable in the last year. Associated with hives on arms and legs 1-2 times per week. Hives last < 1hour. No associated scars or bruises. N o association with cold temperatures, he at, sunlight or pressure. History of allergy to sulfa ( hives and difficulty breathing) and latex ( hives). One episode of angioedema of the lip abo ut two months ago. Lasted about one hour. She was on lisinopril about two weeks prior to the swelling episodes. Two days ago had swelling of the corner of her lip and it lasted less than 5 minutes. No difficulty breathing or SOB. Tried Kari, zyrtec and Claritin witho ut any change in the pruritus. No improvement with oatmeal baths. No new meds. No new foods in diet. She takes Aleve most days of the week fo r osteoarthritis of the knee. Takes ibuprofen less than once monthly. No change in soaps, moisturizers or dete rgents. She uses dryer sheets. No insect bites/stings. No pets currently. Had dog and cat until last year. PMH: negative for hematologic malignancy , angioedema, eczema, liver disorder or renal disorder. Has CU. Has hypothyroidism. Family history: Negative for angioedema, chronic urticaria, hematologic malignancy Last Assessment & Plan: Differential is very broad. Includes all ergies, iron- deficiency anemia, bullous pemphigus, liver, renal, autoimmune or inflammatory disorder. She had mildly elevated hepatic tests in June, but this is unlikely to be contributing to her pruritus. Skin tests not performed because they ma y exacerbate pruritus and hives. - Stop Zyrtec. Start Xyzal 5 mg daily - Start Atarax 25mg TID prn pruritus. Re viewed sedative effect - Use hypoallergenic products - Stop using dryer sheets - Will check: Orders Placed This Encounter Procedures ? ? Sedimentation rate ? ? CBC (with Diff) ? ? Ferritin ? ? Birch, silver IgE ? ? Maple / Oxford IgE ? ? Garrett, White IgE ? ? [place], White IgE ? ? Pyote IgE ? ? Elm IgE ? ? Beech IgE ? ? Cat Epithelium IgE ? ? Dog Epithelium IgE ? ? Richy Grass IgE ? ? Ragweed, short/ common IgE ? ? House Dust Mites/D.F., IgE ? ? House Dust Mites/D.P., IgE ? ? Alternaria Tenuis, IgE ? ? Aspergillus fumigatus IgE ? ? PORFIRIO ? ? Miscellaneous Lab request ? ? Immunoglobulin E (IgE) ? ? Differential, Automated ? ? [facility] Elevated blood pressure 09/20/2012 09/29/2016 Overview: History of hypertension. Lisinopril stop ped because of angioedema. Last Assessment & Plan: - Recommend continued monitoring and fol low up with primary provider for further evaluation and management of elevated blood pressure Myopia with astigmatism 11/21/2011 09/29/2016 Right knee pain 08/30/2011 09/29/2016 Arthritis of knee, right 05/24/2011 09/29/2016 Overview: X ray 05/24/11: some osteophytes, some na rrowing; naproxen; PT; weight reduction recommended; may need knee replacement in future Type 2 diabetes mellitus 11/04/2010 09/29/2016 Myopia 11/04/2010 09/29/2016 Astigmatism 11/04/2010 09/29/2016 Shoulder impingement syndrome 09/03/2010 09/29/2016 failure, antepartum 06/26/2010 06/17/2011 macrosomia 06/12/2010 07/13/2010 Previous delivery, antepartum condition or 06/10/19 11 06/17/2011 complication AMA (advanced maternal age) multigravida 35+ 06/03/2010 09/29/2016 state, incidental 06/02/2010 09/29/2016 Overview: Dx replacement utility run on deactivate d IMO Dx [id number] Hyperlipidemia 09/29/2016 Immunizations Name Administration Dates Next Due Influenza PF, Split 01/13/2012, 01/18/2011 Influenza Vaccine PF, Quadrivalent 12/23/2016 Influenza Vaccine W/preservative, Quadrivalent 12/24/2014, 0 11/05/2013 Influenza Vaccine, Unspecified Formulation 12/24/2014 Influenza Vaccine, Whole 01/05/2010, 01/25/2008 Pneumococcal Polyvalent 23 07/16/2011 Td Vaccine, Absorbed, PF, Adult 07/13/2010 Tdap Vaccine 07/13/2010 Family History Medical History Relation Comments Seizure Disorder Brother Alcohol Use Disorder Father Breast Cancer Maternal Aunt High Blood Pressure Maternal Aunt Glaucoma Maternal Grandfather High Blood Pressure Maternal Grandfather High Blood Pressure Maternal Uncle Alcohol Use Disorder Other pt reports FOB in r ecovery x4 yrs Drug Abuse Other pt reports FOB in re covery FOB Health Problems Other curved spine and hip dysplasia Cancer Paternal Grandfather Myocardial Infarction Paternal Grandfather Amblyopia Neg Hx Angioedema Neg Hx Blindness Neg Hx Cataracts Neg Hx Diabetes Neg Hx Heart Disease Neg Hx Hypertension Neg Hx Macular Degeneration Neg Hx Retinal Detachment Neg Hx Strabismus Neg Hx Stroke Neg Hx Thyroid Disease Neg Hx Urticaria Neg Hx Relation Status Comments Brother Alive Father Alive Maternal Aunt Maternal Grandfather Maternal Uncle Mother Alive Other Alive Paternal Grandfather Sister Alive Social History Tobacco Use Types Packs/Day Years Used Date Former Smoker Cigarettes 2 10 Quit: 09/05/19 11 Smokeless Tobacco: Never Used Comments: quits during Alcohol Use Standard Drinks/Week Comments No 0 (1 standard drink = 0.6 oz pure alcoho l) n/a Sex Assigned at Date Recorded Female 05/09/2020 7:27 PM EST Last Filed Vital Signs Vital Sign Reading Time Taken Comments Blood Pressure 139/83 01/10/2018 12:54 PM EST Pulse 76 01/10/2018 12:54 PM EST Temperature 37.1 ??C (98.7 ??F) 02/23/2017 3:51 PM EST Respiratory Rate 20 01/10/2018 12:54 PM EST Oxygen Saturation 99% 01/10/2018 12:54 PM EST Inhaled Oxygen Concentration - - Weight 117.8 kg (259 lb 12.8 oz) 01/10/2018 12:54 PM EST Height 170.2 cm (5' 7) 01/10/2018 12:54 PM EST Body Mass Index 40.69 01/10/2018 12:54 PM EST Plan of Treatment Health Maintenance Due Date Last Done Comments Covid-19 Vaccine (#1) 1975 Hepatitis C Screening 1991 Pneumococcal Vaccine: At-Risk 07/15/2012 07/16/2011 5-64yrs (2 - PCV) Breast Cancer Share Decision 2013 Needed HPV test 08/26/2015 08/25/2010 PAP Smear 08/26/2015 08/25/2010 DM Urine Microalbumin yearly 11/24/2017 11/24/2016, 012 Colonoscopy 2018 DM Hemoglobin A1c 04/12/2018 01/10/2018, 02/23/2017, 11/24/2016, Additional history exists DM Creatinine yearly 01/10/2019 01/10/2018, 08/19/2016, 05/24/2016, Additional history exists Tetanus vaccine 07/13/2020 07/13/2010, 07/13/2010 DM Opthalmology Exam 08/27/2021 08/27/2020, 11/19/2011, 11/04/2010 Influenza (Flu) vaccine (1 of 1 - 11/05/2021 12/23/2016, , Influenza standard series) 12/24/2014, Additiona l history exists HIV screen Completed 12/17/2009 Tdap adult Completed 07/13/2010 Insurance Payer Benefit Plan / Subscriber ID Effective Dates Phone Addre ss Type Group [place] [id number] 2015-Suzanne [phone] [address] [facility] [id number] Advance Directives Latest Code Status on File Code Status Date Activated Date Inactivated Comments Full Code 09/29/2016 2:24 AM 09/30/2016 6:20 PM Does patient have capacity to make decision: Yes Full Code 07/10/2010 9:43 AM 07/10/2010 2:20 PM Order Status: Initial Order Does patient have decision making capacity? Yes, Order is based on Patients wishes. Full Code 07/10/2010 8:23 AM 07/10/2010 9:43 AM Order Status: Initial Order Does patient have decision making capacity? Yes, Order is based on Patients wishes. Care Teams Early Childhood Special Educator Relationship Specialty Start Date End Date Marcia Dickens APRN PCP - General Family Medicine 10/30/[address] [place] [address]
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
--- OUTSIDE RECORDS SUMMARY | 2021-12-17 15:07 | XMS_ITS | Encounter Summary ---
:1975 Author Organization [facility] [place] [address] Care Team Providers Name Role Phone Marcia Dickens APRN Primary Care Provider Reason for Visit Reason Onset Date Comments Prior Authorization 10/26/2017 Encounter Details Date Type Department Care Team Description 10/26/2017 Telephone Endocrinology at [facility] [place] [address] Social History Tobacco Use Types Packs/Day Years Used Date Former Smoker Cigarettes 2 10 Quit: 09/05/19 11 Smokeless Tobacco: Never Used Comments: quits during Alcohol Use Standard Drinks/Week Comments No 0 (1 standard drink = 0.6 oz pure alcoho l) n/a Sex Assigned at Date Recorded Female 05/09/2020 7:27 PM EST documented as of this encounter Miscellaneous Notes Telephone Encounter - Soraida Finnegan - 10/26/2017 8:26 AM EDT Medication Prior Authorization SERVANDO Medication name/dose/directions: TOUJEO MAX SOLOSTAR - INJ 65U DAILY Rationale for request: TYPE II DM Health plan: [place] ([facility]) Authorizing escrow representative name: DUSTIN Faxed to health plan on: 10/26/17 Health plan decision: DENIED Quantity approved: Authorization number: [id number] Start date: End date: documented in this encounter Plan of Treatment Not on filedocumented as of this encounter Visit Diagnoses Not on filedocumented in this encounter Care Teams Coat Agent Relationship Specialty Start Date End Date Marcia Dickens, EMAIL PRODUCER PCP - General Family Medicine 10/30/15 [address] [place] [address] documented as of this encounter
--- OUTSIDE RECORDS SUMMARY | 2021-12-17 15:07 | XMS_ITS | Encounter Summary ---
:1975 [place] [address] Care Team Providers Name Role Phone Denise Darnell MD Primary Care Provider Encounter Details Date Type Department Care Team Description 11/06/2013 Follow-Up Sleep Center at [facility], HALEY on CPAP (Primary [address] Jonel Hernandez MD Dx) [address] [facility] [address] Gu[place], [place] [facility] [id number] [place], [place] [id number] [phone] (Wo rk) Social History Tobacco Use Types Packs/Day Years [...] Sign Reading Time Taken Comments Blood Pressure 128/84 11/06/2013 2:45 PM EDT Pulse 73 11/06/2013 2:45 PM EDT Temperature - - Respiratory Rate - - Oxygen Saturation 97% 11/06/2013 2:45 PM EDT Inhaled Oxygen Concentration - - Weight 152.9 kg (337 lb) 11/06/2013 2:45 PM EDT Height 175.3 cm (5' 9) 11/06/2013 2:45 PM EDT Body Mass Index 49.77 11/06/2013 2:45 PM EDT documented in this encounter Progress Notes Ashanti Blackman MD - 12/03/2013 3:11 PM EDT I evaluated Ms. Evita Singleton with Dr. Salcido and performed moran aspects of the history and examination. I actively participated in the formulation of the management strategy. I have reviewedDr. Salcido's note and agree with the assessment and recommendations. ASHANTI BLACKMAN MD Jonel Abbott MD - 11/06/2013 3:30 PM EDT Sleep Medicine Follow-Up Note HPI: Ms. Evita Singleton is a 38 y.o. female with a history of HALEY (dx'd 01/13; AHI 74.6/hr, CMS AHI 33.6/hr, BMI 41.8) on CPAP 17 cm, DM2, Hypothyroidism, HTN, HLD, GERD, Morbid Obesity, and Chronic Urticaria who is presenting today for a follow-up visit. She initially presented on 08/03/12 to re-establish care. The pt was initially dx'd with HALEY (AHI 74.6/hr) in 2008 (CPAP 10 cm) was but noncompliant with CPAP. She returned complaining of frequent awakenings, snoring, and witnessed apneas. A CPAP titration on 08/29/12 (BMI 51.1) revealed an effective pressure of 16 cm (Quattro FFM) in REM supine sleep. During f/u on 01/16/13 her AHI and leak percentage were at goal but usage was less than desirable.During f/u on 08/09/13 her VSI (although decreased from her prior) was 10.6/hr so her pressure was increased from 16 cm to 17 cm. Today she reports that the increased pressure is tolerable and not leading to mask leakage but she is now suffering from increased bloating, sleepiness, and snort awakenings ( occuring 1-2 times per week). Treatment: CPAP 17 cm H20 Pressure: Tolerable Interface: Quattro FFM Fit: Good Chin strap: No Patient perceived outcome: Worse since going from a pressure of 16 cm to 17cm Ongoing Snoring: yes Mouth Breathing: yes Dry Mouth: yes Nocturnal Gasping: yes ROS: ENT: Nasal Obstruction: yes CONSTITUTIONAL: Weight: 2 pound weight gain Sleep Pattern: Bedtime: 10-12AM Sleep latency 10-15 minutes Awakenings: 1-2 times per week Duration: minimal Awake Time: 5-6AM Daytime Symptoms: Almond: 8 Naps: no Involuntary Dozing: no Driving: The patient doesn't report difficulty with sleepiness and driving. Close calls related to sleepiness: no Accidents related to sleepiness: no Compliance Card Data: Date Range: 10/07/13-11/05/13 Setting: CPAP 17 cm Residual AHI: 1.4/hr Vibratory Snore Index: 0.1 % Night in Large Leak: 0% Average usage days used: 6 hrs and 12 mins % Days used: 96.7% % Days with USage > 4 hrs: 96.7% Patient Active Problem List Diagnosis Code ??? Depression 311 ??? GERD (gastroesophageal reflux disease) 530.81 ??? Hyperlipidemia 272.4 ??? Hypothyroidism 244.9 ??? Obesity 278.00 ??? state, incidental V22.2 ??? Diabetes mellitus type 2 in obese 250.00, 278.00 ??? AMA (advanced maternal age) multigravida 35+ 659.60 ??? Hypertension 401.9 ??? Shoulder impingement syndrome 726.2 ??? Type 2 diabetes mellitus 250.00 ??? Myopia 367.1 ??? Astigmatism 367.20 ??? Arthritis of knee, right 716.96 ??? Right knee pain 719.46 ??? Myopia with astigmatism 367.1, 367.20 ??? HALEY (obstructive sleep apnea) 327.23 ??? Pruritus 698.9 ??? Angioedema 995.1 ??? Elevated blood pressure 796.2 ??? Chronic urticaria 708.8 ??? Idiopathic urticaria - by history 708.1 PE: General: In NAD, cooperative Body mass index is 49.74 kg/(m^2). Filed Vitals: 11/06/13 1445 BP: 128/84 Pulse: 73 Height: 175.3 cm (5' 9) Weight: 152.862 kg (337 lb) SpO2: 97% Pul: Respirations: non-labored, speaking in full sentences Assessment: Ms. Evita Singleton is a 38 y.o. female with a history of HALEY (dx'd 01/13; AHI 74.6/hr, CMS AHI 33.6/hr, BMI 41.8) on CPAP 17 cm, DM2, Hypothyroidism, HTN, HLD, GERD, Morbid Obesity, and Chronic Urticaria who, despite her download card data revealing a residual AHI/VSI/% large leak at night at goal, has been suffering from snort awakenings, aerophagia, and sleepiness since a pressure increase from 16 cm to 17 cm. We will fax a script to her [employer]) to lower her pressure back to 16 cm in an effort to help combat these new symptoms created by an increased pressure. The patient should follow-up at CPAP clinic in six months for reassessment. Reccomendations: 1) Decrease CPAP to 16 cm H20 (script faxed to [employer]) 2) Follow-up at CPAP clinic in six months The patient indicates understanding of these issues and agrees with the plan. The patient was seen and discussed with Dr. Blackman. Please CC a copy of this note to Dr. Denise Darnell. documented in this encounter Plan of Treatment Not on filedocumented as of this encounter Visit Diagnoses Diagnosis HALEY on CPAP - Primary Obstructive sleep apnea (adult) (pediatr ic) documented in this encounter Care Teams Stud Beef Cattle Farmer Relationship Specialty Start Date End Date Denise Darnell MD PCP - General 11/18/11 05/08/15 [facility] [place] [address] documented as of this encounter
--- OUTSIDE RECORDS SUMMARY | 2021-12-17 15:07 | XMS_ITS | Encounter Summary ---
:1975 Author Organization [facility] [place] [address] Care Team Providers Name Role Phone Marcia Dickens APRN Primary Care Provider Reason for Visit Reason Onset Date Comments Prior Authorization 05/26/2016 Encounter Details Date Type Department Care Team Description 05/26/2016 Telephone Pharmacy [place] [address] Social History Tobacco Use Types Packs/Day [...] Notes Telephone Encounter - Soraida Finnegan - 05/26/2016 10:10 AM EDT Medication Prior Authorization [facility] Medication name/dose/directions: VICTOZA 18MG/3ML Rationale for request: TYPE II DM Health plan: [place] Authorizing phlebotomy services representative name: PASTORA Faxed to health plan on: 05/26/16 Health plan decision: APPROVED Quantity approved: 12/04 Authorization number: [id number] Start date: 05/26/16 End date: 05/26/17 documented in this encounter Plan of Treatment Not on filedocumented as of this encounter Visit Diagnoses Not on filedocumented in this encounter Care Teams Denture Contour Wire Specialist Relationship Specialty Start Date End Date Marcia Dickens, SUPERVISOR VOLUNTEER SERVICES PCP - General Family Medicine 10/30/[address] [place] [address] documented as of this encounter
--- OUTSIDE RECORDS SUMMARY | 2021-12-17 15:07 | XMS_ITS | Encounter Summary ---
:1975 Author Organization [facility] Address [address] [place] [address] Care Team Providers Name Role Phone Aurelia Darnell MD Primary Care Provider Reason for Visit Reason Comments Rash forearms x 1 yr Encounter Details Date Type Department Care Team Description 06/04/2013 Office Visit Dermatology at [facility] diopathic urticaria [facility] IIIMD - by history (Primary [address] [facility] Dx) [place] [address] [facility] [place], [place] [address] Social History Tobacco Use Types Packs/Day Years Used Date Former Smoker Cigarettes 2 10 Quit: 09/05/19 11 Smokeless Tobacco: Never Used Comments: quits during Alcohol Use Standard Drinks/Week Comments No 0 (1 standard drink = 0.6 oz pure alcoho l) n/a Sex Assigned at Date Recorded Female 05/09/2020 7:27 PM EST documented as of this encounter Progress Notes Richard Fox LPN - 06/04/2013 10:42 AM EDT DERMATOLOGY CONSULT NOTE Date of service: 06/04/2013 Evita Singleton : 1975 Provider: [facility]o MD PROBLEM: Itchy rash The patient is seen at the request of AURELIA DARNELL MD, who instructed the patient to be seen for evaluation of above HPI Evita Singleton is a 38 y.o. year old female. Here with a rash that has been on and off for over one year on her forearms. The raised red bumps are extremely itchy and often times have a streaked look. The areas wax and wane. There is no obvious trigger factor. Her skin is clear today, she does have pictures to view on her cell phone. She only itches when she has the lesions. They are more prominent in the AM and rarely bother her at night. When she scratchesthey get worse. She was given Triamcinolone cream 0.025 % sometime ago, this was for a rash on body that she used for approximately 3-4 weeks, with no improvement in symptoms. She has a history of urticaria and has taken Atarax, Zyzol and zyrtec previously. PAST MEDICAL HX: See Problem List Patient Active Problem List Diagnosis Code ??? [...] blood pressure 796.2 ??? Chronic urticaria 708.8 FAMILY HX: Son has eczema No family history of skin cancer ADR: Allergies Allergen Reactions ??? Latex Anaphylaxis ??? Sulfa (Sulfonamide Antibiotics) Anaphylaxis and Hives MEDS: Current Outpatient Prescriptions Medication Sig Dispense Refill ??? SUMAtriptan (IMITREX) 50 mg tablet Take 1 tablet by mouth as needed for Migraine (Take 50 mg at onset of migraine. May take additional 50 mg in 2 h if no relief). 18 tablet 0 ??? levothyroxine (SYNTHROID) 25 mcg tablet Take 1 tablet by mouth daily. Take with 125 mcg tablet to make total dose 150 mcg per day 60 tablet 0 ??? FLUoxetine (PROZAC) 20 mg capsule Take 1 capsule by mouth daily. 90 capsule 3 ??? Pantoprazole (PROTONIX) 40 mg GrPS Take 40 mg by mouth daily. 90 each 3 ??? acetaminophen (TYLENOL ARTHRITIS PAIN) 650 mg CR tablet Take 650 mg by mouth every 8 hours as needed. Do not exceed 6 tabs in 24 hours ??? multivitamin (THERAGRAN) tablet Take 1 tablet by mouth daily. ??? Levocetirizine (XYZAL) 5 mg Tab Take 1 tablet by mouth daily. 30 tablet 11 ??? hydrOXYzine (ATARAX) 25 mg tablet Take 1 tablet by mouth 3 times daily as needed for Itching. Donot operate machinery on this medication. 30 tablet 12 ??? triamcinolone (KENALOG) 0.025 % cream Apply topically 2 times daily. 30 g 1 ??? levothyroxine (SYNTHROID) 125 mcg tablet Take 1 tablet by mouth daily. 90 tablet 12 Patient Active Problem List Diagnosis Code ??? [...] blood pressure 796.2 ??? Chronic urticaria 708.8 ROS General: feeling well Skin: denies other skin complaints EXAM General: NAD, pleasant, cooperative Skin: Forearms Significant skin findings: A. No visible evidence on exam today, forearms are clear Viewed photos on patients cell phone - these appear to be urticarial lesions. ASSESSMENT/PLAN: A. Probable Urticaria/Hives. I discussed this condition with the patient and explored therapeutic options. Sometimes foods can be a trigger, pollens or other allergens. We discussed treatment options. . I recommended treating and If this does help with the symptoms we may need to discuss other optionsfor treatment. ?? Zyrtec 10 mg, take one pill in the am (OTC) ?? Cold compresses ?? Sarna Lotion for the itching ?? Benadryl 25 mg at bedtime if needed - but since this usually occurs in the [place], she may not need apm antihistamine Follow up in 2 months, sooner if problems arise. Appointment made when patient exited. Consider allergy referral if this persists. I am documenting this encounter acting as the scribe for and in the presence of Dr. Campo.: RICHARD FOX LPN I performed the above scribed service and agree with the accuracy of the documentation in this encounter. [facility] Campo MD Section of Dermatology [facility] documented in this encounter Plan of Treatment Not on filedocumented as of this encounter Visit Diagnoses Diagnosis Idiopathic urticaria - by history - Prim kezia Idiopathic urticaria documented in this encounter Care Teams Director Geothermal Operations Relationship Specialty Start Date End Date Aurelia Darnell MD PCP - General 11/18/11 05/08/15 [facility] GENERAL [place] [address] documented as of this encounter
--- OUTSIDE RECORDS SUMMARY | 2021-12-17 15:07 | XMS_ITS | Encounter Summary ---
:1975 [place] [address] Care Team Providers Name Role Phone Marcia Dickens APRN Primary Care Provider Reason for Visit Reason Onset Date Comments Medication Refill 06/28/2017 Encounter Details Date Type Department Care Team Description 06/28/2017 Refill Endocrinology at [facility] Liliana Berkowitz MD [facility] [place] [phone] ENDOCRINOLOGY DEPT [phone] [place], [place] [address] (Wo rk) Social History Tobacco Use Types Packs/Day Years Used Date Former Smoker Cigarettes 2 10 Quit: 09/05/19 11 Smokeless Tobacco: Never Used Comments: quits during Alcohol Use Standard Drinks/Week Comments No 0 (1 standard drink = 0.6 oz pure alcoho l) n/a Sex Assigned at Date Recorded Female 05/09/2020 7:27 PM EST documented as of this encounter Plan of Treatment Not on filedocumented as of this encounter Visit Diagnoses Not on filedocumented in this encounter Care Teams Special Events Planner Relationship Specialty Start Date End Date Marcia Dickens APRN PCP - General Family Medicine 10/30/[address] [place], [place] [address] documented as of this encounter
--- OUTSIDE RECORDS SUMMARY | 2021-12-17 15:07 | XMS_ITS | Encounter Summary ---
:1975 [place] [address] Care Team Providers Name Role Phone Marcia Dickens APRN Primary Care Provider Encounter Details Date Type Department Care Team Description 09/28/2016 Hospital Encounter Radiology Library at [facility], Arnulfo Copeland [facility] [place] [address] GYNECOLOGY ONCOLOGY [phone] [place], [place] [address] (Wo rk) Social History Tobacco Use Types Packs/Day Years Used Date Former Smoker Cigarettes 2 10 Quit: 09/05/19 11 Smokeless Tobacco: Never Used Comments: quits during Alcohol Use Standard Drinks/Week Comments No 0 (1 standard drink = 0.6 oz pure alcoho l) n/a Sex Assigned at Date Recorded Female 05/09/2020 7:27 PM EST documented as of this encounter Medications at Time of Discharge Medication Sig Dispensed Refills Start Date End Date atorvastatin (LIPITOR) Take 40 mg by mouth 0 04/08 40 mg Tablet daily. insulin aspart Inject 4-20 Units 0 05/05/2015 (NOVOLOG FLEXPEN) subcutaneously 3 times Insulin Pen daily. Pantoprazole Take 40 mg by mouth 90 each 3 11/30/2013 (PROTONIX) 40 mg daily. Granules for susp in PacketIndications: GERD (gastroesophageal reflux disease) SUMAtriptan (IMITREX) Take 1 tablet by mouth 18 tablet 0 50 mg tablet as needed for Migraine (Take 50 mg at onset of migraine. May take additional 50 mg in 2 h if no relief). Levocetirizine (XYZAL) Take 1 tablet by mouth 30 tablet 11 0 09/20/2012 5 mg Tab daily. hydrOXYzine (ATARAX) Take 1 tablet by mouth 30 tablet 12 25 mg tablet 3 times daily as needed for Itching. Do not operate machinery on this medication. triamcinolone Apply topically 2 30 g 1 07/18/2012 (KENALOG) 0.025 % times daily. cream multivitamin Take 1 tablet by mouth 0 (THERAGRAN) tablet daily. clindamycin (CLEOCIN) Take 1 capsule by 56 capsule 0 017 11/24/2016 300 mg Capsule mouth 4 times daily. levothyroxine Take 1 tablet by mouth 90 tablet 3 08/20/2016 03/14/2017 (SYNTHROID) 200 mcg daily. Tablet insulin glargine Inject 165 Units 1 Box 11 08/19/2016 (JOSUE WARREN) 300 subcutaneously daily. unit/mL (1.5 mL) Insulin Pen liraglutide (VICTOZA) Inject 1.8 mg 3 Syringe 11 05/24/2016 06/28/2017 0.6 mg/0.1 mL (18 mg/3 subcutaneously daily. mL) Pen Injector 0.6 mg daily for 2 wk, then increase to 1.2 mg daily for 2 wk, then increase to 1.8mg daily thereafter. metFORMIN Take 2 tablets by 360 tablet 3 01/28/2016 017 (GLUCOPHAGE-XR) 500 mg mouth 2 times daily Tablet Sustained (with meals). Release 24 hr FLUoxetine (PROZAC) 20 Take 1 capsule by 90 capsule 3 201308/27/2020 mg CapsuleIndications: mouth daily. Depression naproxen sodium Take 440 mg by mouth 2 0 02/23/2017 (ALEVE) 220 mg Capsule times daily. hyaluronate Inject 16 mg into the 0 (HYLAN,SYNVISC) [address] Q6 mg/2 mL Syringe Months. acetaminophen (TYLENOL Take 650 mg by mouth 0 10/18/2016 ARTHRITIS PAIN) 650 mg every 8 hours as CR tablet needed. Do not exceed 6 tabs in 24 hours documented as of this encounter Plan of Treatment Not on filedocumented as of this encounter Procedures Procedure Name Priority Date/Time Associated Diagnosis Comme nts FILM LIBRARY Routine 09/28/2016 12:00 AM Pain Results for this STORAGE ONLY CT EDT procedure ar e in ABDOMEN AND PELVIS the resul ts section. documented in this encounter Results Film Library- Storage Only CT Abdomen & Pelvis (09/28/2016 12:00 AM EDT) Specimen (Source) Anatomical Location Collection Method / Collectio n Time Received Time / Laterality Volume Narrative [facility] - 09/28/2016 7:03 PM EDT This exam is for storage only and is aut o-finalizing. Aundrea Elmore MD IMDevin FILM LIBRARY ORDERABLES Performing Organization Address City/State/ZIP Code Phon e Number [place], [place] documented in this encounter Visit Diagnoses Diagnosis Pain Generalized pain documented in this encounter Care Teams Applications Chemist Relationship Specialty Start Date End Date Marcia Dickens APRN PCP - General Family Medicine 10/30/[address] [place] [address] documented as of this encounter
--- OUTSIDE RECORDS SUMMARY | 2021-12-17 15:07 | XMS_ITS | Encounter Summary ---
:1975 Author Organization [facility] [place] [address] Care Team Providers Name Role Phone Denise Darnell MD Primary Care Provider Encounter Details Date Type Department Care Team Description 08/15/2014 Telephone Hospitalist at [facility] Yasmeen Posey MD [facility] [place] [address] GENERAL INTERNAL [phone] MEDICINE [place], [place] [address] (Wo rk) Social History Tobacco [...] this encounter Miscellaneous Notes Telephone Encounter - Yasmeen Posey MD - 08/15/2014 10:21 AM EDT I called the patient and left her a voice mail requesting that she should come to the lab to get herTSH level checked. Ordered TSH in eDH. Yasmeen Posey MD, PhD, PGY3 documented in this encounter Plan of Treatment Not on filedocumented as of this encounter Visit Diagnoses Diagnosis Hypothyroidism, unspecified documented in this encounter Care Teams Carry In Worker Relationship Specialty Start Date End Date Denise Darnell MD PCP - General 11/18/11 05/08/15 [facility] [place] [address] documented as of this encounter
--- OUTSIDE RECORDS SUMMARY | 2021-12-17 15:07 | XMS_ITS | Encounter Summary ---
:1975 [place] [address] Care Team Providers Name Role Phone Marcia Dickens APRN Primary Care Provider Encounter Details Date Type Department Care Team Description 11/24/2016 Laboratory Lab 3L [place] Type 2 diabetes mellitus without complication, with long-term current use of insulin; Appointment [facility] Hypothyro idism [place] [id number] Social History Tobacco Use Types Packs/Day Years [...] Name Priority Date/Time Associated Diagnosis Comme nts U ALBUMIN/CRE RATIO Routine 11/24/2016 1:49 PM Type 2 diabetes Results for this EDT mellitus without procedure a re in complication, with the resul ts long-term current use sectio n. 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 LDL CHOLESTEROL, Routine 11/24/2016 1:49 PM Type 2 diabetes Re sults for this DIRECT EDT mellitus without procedure a re in complication, with the resul ts long-term current use sectio n. of insulin HEMOGLOBIN A1C STAT 11/24/2016 1:49 PM Type 2 diabetes Resu lts for this EDT mellitus without procedure a re in complication, with the resul ts long-term current use sectio n. of insulin documented in this encounter Results U Albumin/Cre Ratio (11/24/2016 1:49 PM EDT) athologist Signature Alb/Cr Ratio, 6 0 - 29 [facility] Random mcg/mg Cr [facility] Comment: Reference Ranges: <30 mcg/mg: Normal 30-300 mcg/mg: Moderately increased albu minuria.* >300 mcg/mg: Severely increased albuminu naya. * ACEI or ARB recommended if diabetic; s uggested if BP>130/80 without diabetes ACEI or ARB strongly recommended if di abetic; recommended if BP>130/80 without diabetes Two of three specimens collected within a 3 to 6 month period should be abnormal before considering a patient to have albuminuria. Transient causes: exercise, fever, infection, CHF, marked hyperglycemia or hypertension. Persistent albuminuria indicates CKD and is an independent risk factor for ASCVD. ADA Standards of Medical Care in Diabete s-2016; KDIGO: Kidney International Supplements (2012) 2, 357? 362 U Albumin Conc, Random 17.9 mg/L [facility] U Creatinine 297 mg/dL [facility] Specimen Anatomical Collection Method Collection Time Receive d Time (Source) Location / / Volume Laterality Urine specimen 11/24/2016 1:49 PM 017 2:02 (specimen) EDT PM EDT Resulting Agency Comment Spec In Lab Liliana Berkowitz MD URINE ORDERABLES Performing Organization Address City/State/[place] [address] LDL Cholesterol, Direct (11/24/2016 1:49 PM EDT) athologist Signature LDL Chol 166 <=190 [facility] Direct mg/dL [facility] Specimen Anatomical Collection Method Collection Time Receive d Time (Source) Location / / Volume Laterality Blood specimen 11/24/2016 1:49 PM 017 2:01 (specimen) EDT PM EDT Resulting Agency Comment Spec In Lab Liliana Berkowitz MD CHEMISTRY ORDERABLES Performing Organization Address City/State/ZIP Code Phon e Number [address] (ABNORMAL) TSH (11/24/2016 1:49 PM EDT) P athologist Signature TSH 6.41 (H) 0.27 - 4.20 [facility] mlU/ML [facility] Specimen Anatomical Collection Method Collection Time Receive d Time (Source) Location / / Volume Laterality Blood specimen 11/24/2016 1:49 PM 017 2:01 (specimen) EDT PM EDT Resulting Agency Comment Spec In Lab Liliana Berkowitz MD CHEMISTRY ORDERABLES Performing Organization Address City/[facility]/ZIP Code Phon e Number [address] (ABNORMAL) Hemoglobin A1c (11/24/2016 1:49 PM EDT) Analysis Performed At Patho logist Time Signature Hemoglobin A1C 7.8 (H) 4.3 - 5.6 [facility] Comment: Reference Range: 4.3 - 5.6% 5.7 - 6.4% - Increased Risk of Developin g Diabetes Mellitus >=6.5% - Consistent with diagnosis of Di abetes Mellitus In the absence of hyperglycemia (i.e. pl asma glucose > 200 mg/dL) or classic symptoms of hyperglycemia a repeat measu rement of HbA1c should be performed on a separate sample to confirm the diagnos is. Diagnosis and Classification of Diabetes Mellitus, Diabetes Care 2013; 36: Suppl. 1, S67-74 Est Avg Gluc 177 mg/dL [facility] Comment: eAG equivalents for HbA1c percentages: HbA1c(%) ?eAG(mg/dL) 6.0 ?126 6.5 ?140 7.0 ?154 7.5 ?169 8.0 ?183 8.5 ?197 9.0 ?212 9.5 ?226 10.0 ? 240 Limitations: The eAG calculation has not been validated on women, individuals below 18 years old and above 70 years old, and individuals with hemoglobinopathies. Additional resources are available on [facility] ADA website. Angelo MULLEN, Ariel J, Bill R, et al. ??Tr anslating the A1C assay into estimated average glucose values. ??Diabetes Care 2008:31(8):6926-5304. 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
--- OUTSIDE RECORDS SUMMARY | 2021-12-17 15:07 | XMS_ITS | Encounter Summary ---
:1975 Author Organization [facility] [place] [address] Care Team Providers Name Role Phone Denise Darnell MD Primary Care Provider Encounter Details Date Type Department Care Team Description 07/22/2013 Notes Only [facility] at [facility] Alexis Reynoso MD [facility] [address] [facility] [place] [address] [place] [address] [phone] (Wo rk) Social History Tobacco Use Types Packs/Day Years Used Date Former Smoker Cigarettes 2 10 Quit: 09/05/19 11 Smokeless Tobacco: Never Used Comments: quits during Alcohol Use Standard Drinks/Week Comments No 0 (1 standard drink = 0.6 oz pure alcoho l) n/a Sex Assigned at Date Recorded Female 05/09/2020 7:27 PM EST documented as of this encounter Progress Notes Roberto Reynoso MD - 07/22/2013 12:01 PM EDT Download reviewed (see below). AHI at goal. Good usage. Leak controlled. Is scheduled for a follow up over here on 08/09/2013. Compliance Card Data: Date Range: 06/16/13 - 07/15/13 [place] Residual AHI: 1 Vibratory Snore Index: 5 % Night in Large Leak: 0.4% Average usage days used: 6 hrs 20 min % Days used: 100% % Days with Usage > 4 hrs: 93% documented in this encounter Plan of Treatment Not on filedocumented as of this encounter Visit Diagnoses Not on filedocumented in this encounter Care Teams Truck Caterer Relationship Specialty Start Date End Date Denise Darnell MD PCP - General 11/18/11 05/08/15 [facility] [place] [address] documented as of this encounter
--- OUTSIDE RECORDS SUMMARY | 2021-12-17 15:07 | XMS_ITS | Encounter Summary ---
:1975 [place] [address] Care Team Providers Name Role Phone Marcia Dickens APRN Primary Care Provider Reason for Visit Reason Onset Date Comments Medication Refill 03/03/2017 Encounter Details Date Type Department Care Team Description 03/03/2017 Refill Endocrinology at [facility] C Liliana Berkowitz MD [facility] [place] [address] ENDOCRINOLOGY DEPT [phone] [place], [place] [address] (Wo rk) Social History Tobacco [...] on filedocumented in this encounter Care Teams Recharger Relationship Specialty Start Date End Date Marcia Dickens APRN PCP - General Family Medicine 10/30/[address] [place], [place] [phone] documented as of this encounter
--- OUTSIDE RECORDS SUMMARY | 2021-12-17 15:07 | XMS_ITS | Encounter Summary ---
:1975 Author Organization [place] [address] Care Team Providers Name Role Phone Marcia Dickens APRN Primary Care Provider Reason for Visit Reason Comments Skin Lesion Consultation (Routine) - Closed Specialty Diagnoses / Procedures Referred By Contact Refer red To Contact Dermatology Diagnoses Disorder of pigmentation, unspecified Teri Fleming APRN [facility] [address] [place], [place] [address] [place] [address] Fax: Referral ID Status Reason Start Date Expiration Date Visits V isits Requested Authorized [id number] Closed Consult, Test 04/18/2020 04/18/2021 [facility] PCP Updated and/or Approved Encounter Details Date Type Department Care Team Description 05/16/2020 Office Visit Dermatology at Lisbet Vogel, Jeffrey eoplasm of uncertain Road behavior [address] [place] [address] [facility] [place], [place] [address] Social History Tobacco Use Types Packs/Day Years Used Date Former Smoker Cigarettes 2 10 Quit: 09/05/19 11 Smokeless Tobacco: Never Used Comments: quits during Alcohol Use Standard Drinks/Week Comments No 0 (1 standard drink = 0.6 oz pure alcoho l) n/a Sex Assigned at Date Recorded Female 05/09/2020 7:27 PM EST documented as of this encounter Progress Notes Lisbet Hannah MD - 05/16/2020 1:00 PM EST Images from the original note were not included. DERMATOLOGY - NEW PATIENT NOTE Date of service: 05/16/2020 Evita Singleton : 1975, 45 y.o. Chief Complaint: Chief Complaint Patient presents with ??? Skin Lesion HPI: Evita Singleton is a 45 y.o. female referred by Teri Fleming APRN with the following concerns: New patient here today for a concerning lesion on the scalp that has been present ~11 months. The lesion is itchy, painful, and bleeds at times. 10/10 symptom severity. She notes that she picks at the lesion frequently. She reports that for the last week she has been applying mupirocin and covering with a bandage to help stop the picking/digging. Past treatments include bacitracin and peroxide without improvement. Relevant Skin History: - Okay to leave detailed message with results? yes - Skin cancer (including type): no Family History: Melanoma: no Relevant Social History: - 4 children Meds: Current Outpatient Medications Medication Sig Dispense Refill ??? insulin glargine 300 unit/mL (3 mL) Insulin Pen Inject 64 Units subcutaneously daily. 6 Syringe 3 ??? liraglutide (VICTOZA) 0.6 mg/0.1 mL (18 mg/3 mL) Pen Injector Inject 1.8 mg subcutaneously daily. ICD 10 Code: E11.69 3 Syringe 11 ??? levothyroxine (SYNTHROID) 200 mcg Tablet Take 1 tablet by mouth daily. 1 tablet daily 6 days perweek and 2 tablets one day per week. 102 tablet 3 ??? metFORMIN (GLUCOPHAGE-XR) 500 mg Tablet Sustained Release 24 hr Take 2 tablets by mouth 2 times daily. 360 tablet 3 ??? hydroCHLOROthiazide (HYDRODIURIL) 12.5 mg Tablet Take 12.5 mg by mouth daily. 0 ??? loratadine (CLARITIN) 10 mg Tablet Take 10 mg by mouth daily. 0 ??? naproxen (NAPROSYN) 500 mg Tablet Take 500 mg by mouth 2 times daily. 0 ??? lisinopril (PRINIVIL;ZESTRIL) 5 mg Tablet Take 5 mg by mouth daily. ??? atorvastatin (LIPITOR) 40 mg Tablet Take 40 mg by mouth daily. ??? insulin aspart (NOVOLOG FLEXPEN) Insulin Pen Inject 4-20 Units subcutaneously 3 times daily. ??? FLUoxetine (PROZAC) 20 mg Capsule Take 1 capsule by mouth daily. 90 capsule 3 ??? Pantoprazole (PROTONIX) [address] for susp in Packet Take 40 mg by mouth daily. 90 each 3 ??? hyaluronate (HYLAN,SYNVISC) 16 mg/2 mL Syringe Inject 16 mg into the articular space Q6 Months. ??? SUMAtriptan (IMITREX) 50 mg tablet Take 1 tablet by mouth as needed for Migraine (Take 50 mg at onset of migraine. May take additional 50 mg in 2 h if no relief). 18 tablet 0 ??? Levocetirizine (XYZAL) 5 mg Tab Take 1 tablet by mouth daily. 30 tablet 11 ??? hydrOXYzine (ATARAX) 25 mg tablet Take 1 tablet by mouth 3 times daily as needed for Itching. Donot operate machinery on this medication. 30 tablet 12 ??? triamcinolone (KENALOG) 0.025 % cream Apply topically 2 times daily. 30 g 1 ??? multivitamin (THERAGRAN) tablet Take 1 tablet by mouth daily. No current facility-administered medications for this visit. Allergies: Allergies Allergen Reactions ??? Latex Anaphylaxis ??? Fentanyl Other (See Comments) Feels limp and as if outside of herself ??? Sulfa (Sulfonamide Antibiotics) Anaphylaxis and Hives ??? Ambien [Zolpidem] Other (See Comments) Sleep walks Review of Systems: - General: Feels well - Skin: No other skin concerns. Examination: - Constitutional: Patient was alert, well-appearing and in no noticeable distress. - Focused Exam: Skin examination of the scalp was normal with the exception of the findings listed below - A nurse/MA was present and on standby during my examination. Diagnosis/Skin findings/Assessment/Plan: #. Neoplasm of Uncertain Behavior - on the vertex scalp there is approximately 7 cm superficially eroded plaque with yellow adherent crust DDx: SCC vs impetigo vs Erosive pustular dermatosis - After review of risks and benefits, joint decision made to pursue punch biopsy today. - Wound care reviewed with patient. Instructed patient to call with any concerns on biopsy site. Sutures to be removed in 10-14 days by patient's PCP per patient preference. Procedure Note: Procedure: Punch biopsy Location: vertex scalp Discussed indications for procedure and expectations including risks and benefits. Verbal consent obtained. Skin prep with alcohol. Local anesthesia with 1% xylocaine, 1/100,000 epinephrine. The lesionwas removed by 4mm punch biopsy technique to the level of the sub cutaneous tissue and submitted to Pathology. Hemostasis obtained. Wound closed with 4-0 Prolene suture. There were no complications; the pt. tolerated the procedure well. The wound was dressed. Post-procedure expectations, wound care and activity restrictions were reviewed. RTC: Pending pathology The following photos were obtained with patient consent: Note initiated by DENISE Valente. I, DENISE Valente, have performed the documentation for this encounter in the presence of and acting as a scribe for Lisbet Hannah MD. I performed the services which were documented by the scribe, and I agree with the accuracy of the documentation in this encounter. Lisbet Hannah MD Reviewed and signed by Lisbet Hannah MD Resident in Dermatology [facility] Patient seen in conjunction with staff hair spring cutter: Callie Short MD Department of Dermatology [facility] Callie Short MD - 05/16/2020 1:00 PM EST I directly supervised Dr. Hannah in the care of this patient. I saw and evaluated this patient with Dr. Hannah. He presented the history and physical exam details to me, then we saw the patient together and I confirmed these findings. I agree with details as written. My physical examination confirms his findings. The assessment and plan were formulated in discussion with me at the time of visit and I agree with them as documented. Callie Short MD Staff Physician Department of Dermatology documented in this encounter Miscellaneous Notes Addendum Note - Callie Short MD - 05/16/2020 1:00 PM EST Addended by: CALLIE SHORT on: 05/19/2020 10:07 PM Modules accepted: Level of Service documented in this encounter Plan of Treatment Not on filedocumented as of this encounter Procedures Procedure Name Priority Date/Time Associated Diagnosis Comme nts SPECIMEN TO Routine 05/16/2020 1:32 PM Neoplasm of Results f or this PATHOLOGY EST uncertain behavior procedure are in the results section. SURGICAL PATHOLOGY Routine 05/16/2020 1:13 PM Res ults for this REPORT EST procedure are i n the results section. documented in this encounter Results Specimen to Pathology (05/16/2020 1:32 PM EST) Specimen Anatomical Collection Method Collection Time Receive d Time (Source) Location / / Volume Laterality AP Specimen 05/16/2020 1:32 PM 6:42 EST PM EST Narrative [facility] - 05/16/2020 6:42 PM EST Specimen requisition ordered. ??Separate Pathology report to follow Resulting Agency Comment Spec In Lab Callie Short MD PATHOLOGY/CYTOLOGY ORDERABLE S Performing Organization Address City/State/ZIP [place] [address] Surgical Pathology Report (05/16/2020 1:13 PM EST) Component Value Ref Test Analysis [facility] Range Method Time Signature Surgical [id number] ? Location: [facility] Report The signing pathologist has (i) examined the relevant preparation(s) for the [facility] specimen(s) and (ii) rendered or confirmed the diagnosis(es) . HOSPITAL LABORATORY . ?Surgic al Pathology DIAGNOSIS Vertex scalp, skin punch biopsy: - Parakeratosis with impetig inized scale crust, adjacent epidermal hyperplasia, dermal fibrosis (see discussion) Electronically signed by: ??Lj BAUTISTA, PhD, Luis Verified: ??05/21/2020 ?Dermatopathologist Performed at: ??-[facility] Dept. of Pathology, [place], [place] DISCUSSION Sections show acanthosis, ?? hyperkeratosis, parakeratosis containing inflammatory serum crust, ??erosion with an as sociated subepidermal split and fibrin, dermal fibrosis, suggestive of excoriation. Gram positive cocci are seen within the stratum corneum and follicular lumen. Gram positive bacterial rods are seen within the follicular infundibulum. ??Fungal hyphae are not seen in PAS-reacted s ections. Overall, the findings are compatible with impetigo while ero sive pustular dermatosis may show overlap ping histologic features. Carcinoma is not identified. ?? Clinicopathologic correlation is recommended. SPECIMEN(S) SUBMITTED A - vertex scalp, skin punch (1) CLINICAL INFORMATION SCC versus impetigo versus e rosive pustular dermatosis : On the vertex scalp there is approximately 7 cm superficially eroded plaque with yellow adherent crust SPECIMEN PROCESSING A - Labeled/Fixative: Patient demographics, formalin. Quantity/Size: ??Single, 0.5 cm. Tissue Description: red-pitt skin punch with a 0.3 x 0.2 cm hypopigmented area near the border excised to a depth 0.4 cm. Sections/Processing: Inked, bisected and entirely submitted in 1 cassette labeled A1. ??MLL Specimen (Source) Anatomical Collection Method Collection Time Re ceived Time Location / / Volume Laterality 05/16/2020 1:13 PM EST Lisbet Hannah MD PATHOLOGY/CYTOLOGY ORDERABLE S Performing Organization Address City/State/ZIP [place] [address] [facility] documented in this encounter Visit Diagnoses Diagnosis Neoplasm of uncertain behavior Neoplasm of uncertain behavior, site uns pecified documented in this encounter Care Teams Airline Reservationist Relationship Specialty Start Date End Date Marcia Dickens, CORPORATE RELATIONS MANAGER PCP - General Family Medicine 10/30/[address] [place] [address] documented as of this encounter
--- OUTSIDE RECORDS SUMMARY | 2021-12-17 15:07 | XMS_ITS | Encounter Summary ---
:1975 [place] [address] Care Team Providers Name Role Phone Marcia Dickens APRN Primary Care Provider Reason for Visit Reason Onset Date Comments Medication Refill 01/30/2016 Encounter Details Date Type Department Care Team Description 01/30/2016 Refill Endocrinology at [facility] Joaquin Morris MD [facility] [place] [address] ENDOCRINOLOGY DEPT [phone] [place], [place] [address] (Wo rk) Social History Tobacco [...] on filedocumented in this encounter Care Teams Wool Fleece Grader Relationship Specialty Start Date End Date Marcia Dickens APRN PCP - General Family Medicine 10/30/[address] [place], [place] [id number] documented as of this encounter
--- OUTSIDE RECORDS SUMMARY | 2021-12-17 15:07 | XMS_ITS | Encounter Summary ---
:1975 Author Organization [facility] [place] [address] Care Team Providers Name Role Phone Marcia Dickens APRN Primary Care Provider Reason for Visit Reason Comments PDR Consultation (Routine) - Closed Specialty Diagnoses / Procedures Referred By Contact Refer red To Contact Ophthalmology Diagnoses Diabetic retinopathy OU Tuite, Demario Hood, OD Pete, Procedures Diabetic retinopathy OU [address] FAVIO Gomez MD [place], [place] [address] [place] [address] [place] [address] Phone: Fax: Referral ID Status Reason Start Date Expiration Date Visits V isits Requested Authorized [id number] Closed Consult, 06/13/2020 06/13/2021 1 1 Test & Treat Encounter Details Date Type Department Care Team Description 08/27/2020 Office Visit Ophthalmology at [facility] Diane Freeman, Nonproliferative diabetic re tinopathy of both eyes with trace macular edema; [facility] MD Jason Nonproliferative diabetic retinopathy of both eyes [place] [address] Center [phone] [place] [address] Social History Tobacco Use Types Packs/Day Years Used Date Former Smoker Cigarettes 2 10 Quit: 09/05/19 11 Smokeless Tobacco: Never Used Comments: quits during Alcohol Use Standard Drinks/Week Comments No 0 (1 standard drink = 0.6 oz pure alcoho l) n/a Sex Assigned at Date Recorded Female 05/09/2020 7:27 PM EST documented as of this encounter Progress Notes Jason Freeman MD - 08/27/2020 7:30 AM EDT ASSESSMENT/PLAN: 1. 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 NPDR OU with trace DME OU Dr. Garcia, thank you for the kind referral. Evita Singleton has Type 2 diabetes. Today's fundoscopic exam and multimodal imaging show that the retinopathy is non proliferative and there is macular edema that is not visually significant OU Recommended good blood sugar control. The findings communicated to the patient's PCP. Recommended observation with regular eye exams. 2. NS OU Mild, monitor 3. Ocular Migraines The patient has a known h/o migraines but they have changed pattern over the last 2 months. Recommended seeing PCP first. Patient will first discuss with them and reach back to us if she would like referral to neurology/headache clinic. Follow up: 12 months for DFE OCT OU Sooner PRN I, Zelda Lovelace, have performed the documentation for this encounter in the presence of, and acting as a scribe for Jason Freeman MD. I performed the services which were documented by the scribe, and I agree with the accuracy of the documentation in this encounter. Jason Freeman MD, PhD Extended Ophthalmoscopy Indication: 1. 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 Technique: A) Indirect ophthalmoscopy with scleral depression B) Slit lamp exam with 90D/78D lens Findings: Main Ophthalmology Exam External Exam Right Left External Normal Normal Slit Lamp Exam Right Left Lids/Lashes Normal Normal Conjunctiva/Sclera White and quiet White and quiet Cornea Clear Clear Anterior Chamber Deep and quiet Deep and quiet Iris Round and reactive Round and reactive Lens trace NS trace NS Fundus Exam Right Left Vitreous Normal Normal Disc Normal Normal C/D Ratio 0.2 0.3 Macula hemes, MAs, hemes, MAs, Vessels Normal Periphery rare DBHs, Microaneurysms, rare DBHs, Microaneurysms, documented in this encounter Plan of Treatment Not on filedocumented as of this encounter Procedures Procedure Name Priority Date/Time Associated Diagnosis Comme nts OCT RETINA - OU - Routine 08/27/2020 9:06 Nonproliferative Res ults for this BOTH EYES AM EDT diabetic retinopathy of proc edure are in both eyes with macular the r esults edema section. documented in this encounter Results OCT Retina - OU - Both Eyes (08/27/2020 9:06 AM EDT) Anatomical Region Laterality Modality Other Specimen (Source) Anatomical Location Collection Method / Collectio n Time Received Time / Laterality Volume Narrative 08/27/2020 9:06 AM EDT Right Eye Quality was good. Scan locations include d subfoveal. Progression has no prior data. Findings include intraretina l fluid. Left Eye Quality was good. Scan locations include d subfoveal. Progression has no prior data. Findings include intraretina l fluid. 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
--- OUTSIDE RECORDS SUMMARY | 2021-12-17 15:07 | XMS_ITS | Encounter Summary ---
:1975 Author Organization [facility] [place] [address] Care Team Providers Name Role Phone Marcia Dickens APRN Primary Care Provider Encounter Details Date Type Department Care Team Description 02/23/2017 Office Visit Endocrinology at [facility] Woo, Uncontrolled type 2 diabetes mellitus with complication, with long- term current use of insulin; [facility] MD Liliana [place], [place] [address] CENTER [phone] ENDOCRINOLOGY DEPT [place] [id number] Social History Tobacco Use Types Packs/Day Years [...] Sign Reading Time Taken Comments Blood Pressure 136/73 02/23/2017 3:51 PM EST Pulse 66 02/23/2017 3:51 PM EST Temperature 37.1 ??C (98.7 ??F) 02/23/2017 3:51 PM EST Respiratory Rate - - Oxygen Saturation 98% 02/23/2017 3:51 PM EST Inhaled Oxygen Concentration - - Weight 128.4 kg (283 lb) 02/23/2017 3:51 PM EST Height 175.3 cm (5' 9) 02/23/2017 3:51 PM EST Body Mass Index 41.79 02/23/2017 3:51 PM EST documented in this encounter Patient Instructions Patient InstructionsLiliana Berkowitz MD - 02/23/2017 4:00 PM EST Increase Lantus dose back up to 32 units twice daily. If your fasting blood sugar is above 150 for two days in a row, increase your Lantus by another 2 units per dose. If your fasting blood sugar is under 90 for two days in a row, decrease your Lantus by 2 units per dose. documented in this encounter Progress Notes Liliana Berkowitz MD - 02/23/2017 4:00 PM EST Endocrinology Clinic Follow-up Visit Reason for Visit: Follow-up of Diabetes Mellitus Type 2 and hypothyroidism HISTORY OF PRESENT ILLNESS: Ms. Evita Singleton is a 41 y.o. year old lady with history significant for DM type 2 and hypothyroidism. Last visit was with Kary Ashford APRN in Nov 2016, last visit with was in August 2016. In September 2016, she was seen by me and Dr. Brothers while admitted with a vulvar infection. FSBG - fasting 200s, highest 280s. Pre-lunch - under 200 Pre-supper - under 200 BG had been doing very well until about . Date of Diagnosis: 2010 - GDM, 2013 - DM type 2 ? Last HgbA1c: 7.8% (02/23/17), 11.4% (08/19/16), 11.4% (05/24/16), 9.8% (11/26/15), 10.6% (October 2015) ? Current Diabetes Medication regimen: victoza 1.8mg SC daily Lantus 30??units BID since last visit with Kary (decreased from 32 units BID) Novolog 1:5g + 1:15mg/dL above 150 mg/dL (uses written out scale). Metformin XR 1000mg BID no GI side effects. ?? FSBG regimen: TIDAC As above ? Hypoglycemia: none ? Diet: ? Physical Activity: ? Smoking: quit in 2010. ? History of complications 1) Nephropathy - Um:cr ?, sCr ??0.90 GFR >60 (08/19/16). 2) Neuropathy - +n/t for the past 1 month. Monofilament exam WNL by Kary Ashford, CARPET INSPECTOR Nov 2015. 3) Retinopathy - Last ophtho evaluation every 6 months - +DR being followed - has not had laser rx yet 4) CV disease - LDL 119 (05/24/16), 166 (Nov 2016) PAST MEDICAL HISTORY: Patient Active Problem List Diagnosis Date Noted ??? Diabetes mellitus type 2 in obese Priority: High ??? Hypothyroidism Priority: High ??? BMI 40.0-44.9, adult Priority: High ??? Depression Priority: Medium ??? GERD (gastroesophageal reflux disease) Priority: Low ??? Vulvar abscess 09/29/2016 ??? Chronic urticaria 09/21/2012 ??? Angioedema 09/20/2012 ??? HALEY (obstructive sleep apnea) 05/28/2012 ??? Hypertension MEDICATIONS: Medications 02/23/17 1618 Medication Sig Taking? hydroCHLOROthiazide (HYDRODIURIL) 12.5 mg Tablet Take 12.5 mg by mouth daily. Yes loratadine (CLARITIN) 10 mg Tablet Take 10 mg by mouth daily. Yes naproxen (NAPROSYN) 500 mg Tablet Take 500 mg by mouth 2 times daily. Yes lisinopril (PRINIVIL;ZESTRIL) 5 mg Tablet Take 5 mg by mouth daily. Yes insulin glargine (LANTUS SOLOSTAR) Insulin Pen Inject 32 Units subcutaneously 2 times daily. Yes levothyroxine (SYNTHROID) 200 mcg Tablet Take 1 tablet by mouth daily. Yes liraglutide (VICTOZA) 0.6 mg/0.1 mL (18 mg/3 mL) Pen Injector Inject 1.8 mg subcutaneously daily. 0.6 mg daily for 2 wk, then increase to 1.2 mg daily for 2 wk, then increase to 1.8mg daily thereafter.Yes atorvastatin (LIPITOR) 40 mg Tablet Take 40 mg by mouth daily. Yes insulin aspart (NOVOLOG FLEXPEN) Insulin Pen Inject 4-20 Units subcutaneously 3 times daily. Yes FLUoxetine (PROZAC) 20 mg Capsule Take 1 capsule by mouth daily. Yes Pantoprazole (PROTONIX) [address] for susp in Packet Take 40 mg by mouth daily. Yes hyaluronate (HYLAN,SYNVISC) 16 mg/2 mL Syringe Inject 16 mg into the articular space Q6 Months. Yes SUMAtriptan (IMITREX) 50 mg tablet Take 1 tablet by mouth as needed for Migraine (Take 50 mg at onset of migraine. May take additional 50 mg in 2 h if no relief). Yes Levocetirizine (XYZAL) 5 mg Tab Take 1 tablet by mouth daily. Patient taking differently: Take 5 mg by mouth as needed. Yes hydrOXYzine (ATARAX) 25 mg tablet Take 1 tablet by mouth 3 times daily as needed for Itching. Do notoperate machinery on this medication. Yes triamcinolone (KENALOG) 0.025 % cream Apply topically 2 times daily. Patient taking differently: Apply 1 Application topically as needed. Yes multivitamin (THERAGRAN) tablet Take 1 tablet by mouth daily. Yes ALLERGIES: Allergies Allergen Reactions ??? Latex Anaphylaxis ??? Fentanyl Other (See Comments) Feels limp and as if outside of herself ??? Sulfa (Sulfonamide Antibiotics) Anaphylaxis and Hives ??? Ambien [Zolpidem] Other (See Comments) Sleep walks SOCIAL HISTORY: History Smoking Status ??? Former Smoker ??? Packs/day: 2.00 ??? Years: 10.00 ??? Types: Cigarettes ??? Quit date: 09/04/2010 Smokeless Tobacco ??? Never Used Comment: quits during FAMILY HISTORY: Family History Relation Problem Age of Onset ??? Father Alcohol Abuse ??? Brother Seizure Disorder ??? Maternal Grandfather High Blood Pressure ??? Paternal Grandfather Cancer Myocardial Infarction ??? Maternal Aunt Breast Cancer High Blood Pressure ??? Maternal Uncle High Blood Pressure ??? Other Alcohol Abuse pt reports FOB in recovery x4 yrs Drug Abuse pt reports FOB in recovery FOB Health Problems curved spine and hip dysplasia ??? Neg Hx Amblyopia Angioedema Blindness Cataracts Diabetes Glaucoma Heart Disease Hypertension Macular Degeneration Retinal Detachment Strabismus Stroke Thyroid Disease Urticaria REVIEW OF SYSTEMS: All 12 systems reviewed and negative except as noted per HPI. PHYSICAL EXAM: Vitals Office Visit from 02/23/2017 in Endocrinology at [facility] Weight - Scale (!) 128.4 kg (283 lb) Height 175.3 cm (5' 9) BSA (Calculated - sq m) 2.5 sq meters BMI (Calculated) 41.79 Temp 37.1 ??C (98.7 ??F) Temp Source Oral Heart Rate 66 BP 136/73 SpO2 98 % Gen: NAD, AAOx3, speaking full sentences, calm pleasant demeanor, morbidly obese habitus Skin: warm and dry Eyes: PERRL, EOMI, anicteric sclerae without injection, no proptosis or lid lag ENT: moist oral mucosa Neck: no thyromegaly, no thyroid nodules, no lymphadenopathy Pulm: CTAB, no stridor Cardiac: reg s1s2, no m/r/g MSK: 5/5 strength in all muscle groups of the upper and lower extremities Neuro: trace biceps and patellar DTRs, no clonus, no delay of the relaxation phase, no tremor. Foot exam: no wounds or sores ASSESSMENT: 41 yo F with Dm type 2 and hypothyroidism. Has been having some fasting hyperglycemia inthe past month or so, attributed to stresses of the holiday season. BG seem to improve to under 200 later in the day so her Novolog scale seems to be dosed appropriately, but she appears to need a higher basal insulin dose. I recommend that she increase her Lantus dose back up to 32 units BID. Clinically euthyroid today on exam, taking 200 mcg LT4 daily, will await TSH from today to confirm. PLAN: Increase Lantus back up to 32 units twice a day. Continue victoza, metformin XR, and Novolog. Will await TSH and A1c result from today - still pending as of end of visit today. to continue LT4 200 mcg daily for now. 25 min of this 40 min face to face visit was spent in counseling the patient on DM mgmt. LILIANA BERKOWITZ MD Hat Linerethernet network architect Section of Endocrinology [facility] documented in this encounter Plan of Treatment Not on filedocumented as of this encounter Results LDL Cholesterol, Direct (01/10/2018 9:07 AM EST) P athologist Signature LDL Chol 152 mg/dL [facility] LABORATORY Comment: Lowest Risk: <100 mg/dL Lower Risk: 100-129 mg/dL Borderline High Risk: 130-159 mg/dL High Risk: 160-189 mg/dL Very High Risk: >nv=457 mg/dL Specimen Anatomical Collection Method Collection Time Receive d Time (Source) Location / / Volume Laterality Blood specimen 01/10/2018 9:07 AM 018 9:15 (specimen) EST AM EST Resulting Agency Comment Spec In Lab Liliana Berkowitz MD CHEMISTRY ORDERABLES Performing Organization Address City/[facility]/ZIP Code Phon e Number [address] Creatinine (01/10/2018 9:07 AM EST) athologist Signature Creatinine 0.74 0.70 - [facility] 1.20 mg/dL [facility] Estimated GFR 99 >=60 [facility] mL/min/1.7 [facility] 3 ? [facility] LABORATORY Comment: The eGFR was calculated using the CKD-EP I equation. As with all creatinine based estimates of kidney function, eGFR values calculated with the CKD-EPI equation are not accurate in patients wi th acute kidney failure, extremes of body mass or the acutely ill. [email or web address]ENNEnkf eGFR 114 >=60 mL/min/1.73 m?? [facility] LABORATORY Comment: The eGFR was calculated using the CKD-EP I equation. As with all creatinine based estimates of kidney function, eGFR values calculated with the CKD-EPI equation are not accurate in patients wi th acute kidney failure, extremes of body mass or the acutely ill. [email or web address] Specimen Anatomical Collection Method Collection Time Receive d Time (Source) Location / / Volume Laterality Blood specimen 01/10/2018 9:07 AM 018 9:15 (specimen) EST AM EST Resulting Agency Comment Spec In Lab Liliana Berkowitz MD CHEMISTRY ORDERABLES Performing Organization Address City/[facility]/ZIP Code Phon e Number [address] (ABNORMAL) Hemoglobin A1c (01/10/2018 9:07 AM EST) Analysis Performed At Patho logist Time Signature Hemoglobin A1C 9.7 (H) 4.3 - 5.6 [facility] LABORATORY Comment: Reference Range: 4.3 - [...] 36: Suppl. 1, S67-74 Est Avg Gluc 232 mg/dL [facility] LABORATORY Comment: eAG equivalents for HbA1c percentages: HbA1c(%) ?eAG(mg/dL) 6.0 ?126 6.5 ?140 7.0 ?154 7.5 ?169 8.0 ?183 8.5 ?197 9.0 ?212 9.5 ?226 10.0 ? 240 Limitations: The eAG calculation has not been validated on women, individuals below 18 years old and above 70 years old, and individuals with hemoglobinopathies. Additional resources are available on e ADA website. Angelo MULLEN, Ariel J, Bill R, et al. ??Tr anslating the A1C assay into estimated average glucose values. ??Diabetes Care 2008:31(8):5686-3386. Specimen Anatomical Collection Method Collection Time Receive d Time (Source) Location / / Volume Laterality Blood specimen 01/10/2018 9:07 AM 018 9:15 (specimen) EST AM EST Resulting Agency Comment Spec In Lab Liliana Berkowitz MD CHEMISTRY ORDERABLES Performing Organization Address City/State/ZIP [place] [address] documented in this encounter Visit Diagnoses Diagnosis Uncontrolled type 2 diabetes mellitus wi th complication, with long-term current use of insulin Hypothyroidism, unspecified type documented in this encounter Care Teams Teacher Vocal Relationship Specialty Start Date End Date Marcia Dickens, CARPET INSPECTOR PCP - General Family Medicine 10/30/[address] [place] [address] documented as of this encounter
--- OUTSIDE RECORDS SUMMARY | 2021-12-17 15:07 | XMS_ITS | Encounter Summary ---
:1975 Author Organization [facility] [place] [address] Care Team Providers Name Role Phone Denise Darnell MD Primary Care Provider Reason for Visit Reason Onset Date Comments Medication Refill 11/29/2013 Encounter Details Date Type Department Care Team Description 11/29/2013 Refill Internal Medicine at [facility], GERD (gastroesophageal reflux disease); [facility] [place] [address] MEDICINE [phone] [place], [place] [address] (Wo rk) Social History Tobacco [...] this encounter Miscellaneous Notes Telephone Encounter - Ryder López - 12/04/2013 9:02 AM EDT 12/04/13 - left VM, mailed letter Telephone Encounter - Ryedr López - 12/03/2013 10:17 AM EDT 12/03/13 -LEFT VM Telephone Encounter - Ryder López - 11/30/2013 11:15 AM EDT 11/30/13 - LEFT VM, REMINDER IN. documented in this encounter Plan of Treatment Not on filedocumented as of this encounter Visit Diagnoses Diagnosis GERD (gastroesophageal reflux disease) Esophageal reflux Depression Depressive disorder, not elsewhere class ified documented in this encounter Care Teams Journal Clerk Relationship Specialty Start Date End Date Denise Darnell MD PCP - General 11/18/11 05/08/[address] [facility] [address] [facility] [place] [address] documented as of this encounter
--- OUTSIDE RECORDS SUMMARY | 2021-12-17 15:07 | XMS_ITS | Encounter Summary ---
:1975 Author Organization [place] [address] Care Team Providers Name Role Phone Marcia Dickens APRN Primary Care Provider Reason for Visit Reason Comments Wound Check Encounter Details Date Type Department Care Team Description 10/04/2016 Office Visit Obstetrics and Brandy Vega, Vulvar a bscess (Primary Dx); Gynecology at [facility] Diabetes mellitus type 2 in obese [facility] [address] [place] OBSTETRICS & [phone] GYNECOLOGY [phone] [place], [place] [address] Social History Tobacco Use Types [...] Sign Reading Time Taken Comments Blood Pressure 134/75 10/04/2016 2:05 PM EDT Pulse 80 10/04/2016 2:05 PM EDT Temperature 36.7 ??C (98.1 ??F) 10/04/2016 2:05 PM EDT Respiratory Rate 18 10/04/2016 2:05 PM EDT Oxygen Saturation 96% 10/04/2016 2:05 PM EDT Inhaled Oxygen Concentration - - Weight 125.1 kg (275 lb 11.2 oz) 10/04/2016 2:05 PM EDT Height 175.3 cm (5' 9) 10/04/2016 2:05 PM EDT Body Mass Index 40.71 10/04/2016 2:05 PM EDT documented in this encounter Progress Notes Brandy Vega MD - 10/04/2016 2:15 PM EDT INSTRUCTOR BUSINESS EDUCATION Clinic Progress Note ID: 41 y.o.??female,??with a past medical history significant for poorly controlled type 2 diabetes on insulin, who presents to [facility] in transport from outside hospital for vulvar cellulitis, admitted from [facility] from 09/28/2016-09/30/2016. S: Feeling tired and icky today. Had intermittent nausea before. She missed 3 doses, one each day. Back on Victoza and wonders if this is why she is feeling nauseated. Sugar control improved, 100-200's. VNA has changed her wick daily. Not doing sits baths. Denies fevers, chills. Slightly improved right vulvar swelling. O: Vitals: 10/04/16 1405 BP: 134/75 Pulse: 80 Resp: 18 Temp: 36.7 ??C (98.1 ??F) Gen: NAD, pleasant Vulva: right vulva swelling has improved with [address] draining. After placing EMLA cream on the surface for 5 minutes, the wick was removed. Area was repacked with 10 cm of 1/2 iodoform packing. EBL 0. Patient tolerated well. POC glucose: 140 Micro: Component Results ? Component Value ? Body Fluid Culture (Abnormal) No growth ? Gram Stain (Abnormal) Few White Blood Cells seen Moderate Gram Positive Cocci seen A/P: 41 y.o. with R vulvar abscess that is improving with po clinda and I+D with daily wick changes. Improved glycemic control, and I suspect this is the main cause of her nausea. - Encouraged sits baths - Continue current regimen with VNA - Continue clinda- patient missing intermittent doses but to complete all of the prescription (14 days worth provided) - RTC in 2 weeks - Work note provided until 10/19/2016 Seen with attending BRANDY Peterson MD PGY-4 Jm Ding MD - 10/04/2016 2:15 PM EDT I saw and evaluated Evita Singleton. I agree with the findings and the plan of care as documented in the resident's note. JM DING MD I was present and participated during the entire procedure. JM DING MD documented in this encounter Plan of Treatment Not on filedocumented as of this encounter Procedures Procedure Name Priority Date/Time Associated Diagnosis Comme nts POCT FINGERSTICK STAT 10/04/2016 Vulvar abscess Results f or this GLUCOSE procedure are i n the results section . documented in this encounter Results POCT Fingerstick Glucose (10/04/2016) P athologist Signature POC Glucose 141 60 - 199 mg/dl Jm Ding MD POINT OF CARE TEST ORDERABLE S documented in this encounter Visit Diagnoses Diagnosis Vulvar abscess - Primary Other abscess of vulva Diabetes mellitus type 2 in obese Type II or unspecified type diabetes jose litus without mention of complication, not stated as uncontrolled documented in this encounter Care Teams Neonatal Nurse Relationship Specialty Start Date End Date Marcia Dickens, DRILL PUNCH OPERATOR PCP - General Family Medicine 10/30/[address] [place] [address] documented as of this encounter
--- OUTSIDE RECORDS SUMMARY | 2021-12-17 15:07 | XMS_ITS | Encounter Summary ---
:1975 Author Organization [place] [address] Care Team Providers Name Role Phone Marcia Dickens APRN Primary Care Provider Reason for Visit Reason Onset Date Comments Appointment 10/10/2018 Encounter Details Date Type Department Care Team Description 10/10/2018 Telephone [facility]ocrinology at [facility] [place] [address] Social History Tobacco Use Types Packs/Day Years Used Date Former Smoker Cigarettes 2 10 Quit: 09/05/19 11 Smokeless Tobacco: Never Used Comments: quits during Alcohol Use Standard Drinks/Week Comments No 0 (1 standard drink = 0.6 oz pure alcoho l) n/a Sex Assigned at Date Recorded Female 05/09/2020 7:27 PM EST documented as of this encounter Miscellaneous Notes Telephone Encounter - Reba Griggs - 10/10/2018 2:47 PM EDT Caller and relationship to patient (if other than patient): Evita Best time to reach caller: Any Message or Reason for Call: Evita called because she noticed that her [address] Berkowitz was cancelled. She called to reschedule it. She says that the appointment needs to be in December Appt Needed and Reason: yes, reschedule Provider: Dr. Berkowitz documented in this encounter Plan of Treatment Not on filedocumented as of this encounter Visit Diagnoses Not on filedocumented in this encounter Care Teams Cloth Framer Relationship Specialty Start Date End Date Marcia Dickens APRN PCP - General Family Medicine 10/30/[address] [place] [address] documented as of this encounter
--- OUTSIDE RECORDS SUMMARY | 2021-12-17 15:07 | XMS_ITS | Encounter Summary ---
:1975 Author Organization [facility] [place] [address] Care Team Providers Name Role Phone Marcia Dickens APRN Primary Care Provider Encounter Details Date Type Department Care Team Description 09/03/2016 Telephone Endocrinology at [facility] Rose Marie [place]arro, [place] [phone] Social History Tobacco Use Types Packs/Day Years Used Date Former Smoker Cigarettes 2 10 Quit: 09/05/19 11 Smokeless Tobacco: Never Used Comments: quits during Alcohol Use Standard Drinks/Week Comments No 0 (1 standard drink = 0.6 oz pure alcoho l) n/a Sex Assigned at Date Recorded Female 05/09/2020 7:27 PM EST documented as of this encounter Miscellaneous Notes Telephone Encounter - Liliana Berkowitz MD - 09/03/2016 7:09 PM EDT Thanks Rose Marie! May you let Apolonia know that I responded to Evita's message today about this, with the following instructions: Luis Jama, thanks for your message and for the update! I would suggest starting the Lantus at 40 units once a day. Email me back on TuesdaySeptember 06 with how your morning sugars do on that dose. LILIANA Quiroga MD [employer] analyst Section of Endocrinology [facility] [place] Encounter - Rose Marie Hansen RN - 09/03/2016 2:42 PM EDT Received call from Apolonia Johns RN caremanager for Evita. Apolonia states that Evita remembered her directions to stop the lantus and start the Toujeo except that the Toujeo requires prior authorization which has not gone through yet and 2 weeks ago Evita stopped the Lantus. Per Apolonia Evita's BG levels have been right around 250, taking victoza, metformin and 8-10 units of novolog. Apolonia is concerned that the dose of toujeo that Evita should start out on will be too high and is wondering about reducing it before she starts. Message forwarded to Dr Berkowitz Director Of Claims also contacted pharmacy as PA for toujeo has not been done yet, for received and will forwardto secretary specialist who does this. documented in this encounter Plan of Treatment Not on filedocumented as of this encounter Visit Diagnoses Not on filedocumented in this encounter Care Teams Dull [employer]at Mill Operator Relationship Specialty Start Date End Date Marcia Dickens, NEONATAL ICU COORDINATOR PCP - General Family Medicine 10/30/[address] [place] [address] documented as of this encounter
--- OUTSIDE RECORDS SUMMARY | 2021-12-17 15:07 | XMS_ITS | Encounter Summary ---
:1975 [place] [address] Care Team Providers Name Role Phone Aurelia Darnell MD Primary Care Provider Encounter Details Date Type Department Care Team Description 08/09/2013 Follow-Up [facility] at [facility] , HALEY (obstructive sleep Road MD apnea) (Primary Dx) [address] [place] [address] [address] [phone] [facility] [place], [place] [address] (Wo rk) Social History Tobacco [...] Sign Reading Time Taken Comments Blood Pressure 138/70 08/09/2013 1:41 PM EDT Pulse 68 08/09/2013 1:41 PM EDT Temperature - - Respiratory Rate - - Oxygen Saturation 96% 08/09/2013 1:41 PM EDT Inhaled Oxygen Concentration - - Weight 152 kg (335 lb) 08/09/2013 1:41 PM EDT Height 175.3 cm (5' 9) 08/09/2013 1:41 PM EDT Body Mass Index 49.47 08/09/2013 1:41 PM EDT documented in this encounter Progress Notes Hong Pan MD - 08/16/2013 12:04 PM EDT I evaluated this Ms. Evita Singleton with Dr. Lee and performed moran aspects of the history and examination. I actively participated in the formulation of the management strategy. I have reviewed Dr. Lee's note and agree with the assessment and recommendations. HONG PAN MD MD Ezra Lee MD - 08/09/2013 2:08 PM EDT History of Present Illness: 38-year-old female with a past medical history of GERD, major depressive disorder, hypothyroidism, dyslipidemia, type 2 diabetes as well as obstructive sleep apnea returns in followup for the latter. The patient was initially diagnosed with obstructive sleep apnea in January 2009 during which time a diagnostic polysomnogram disclosed a CMS AHI of 33.6 at a weight of 283 pounds. Overall, AHI was 74.6. She subsequently underwent a CPAP titration in May of 2009 at a weight of 290 pounds, which disclosed an efficacious pressure of 10 cm of water in REM supine. She had ongoing excessive daytime somnolence and subsequently underwent a CPAP re-titration in August of 2012 during which time pressures from 5 to 16 were trialed at a weight of 346 pounds, and a pressure of 16 cm of water was deemed effective in REM supine. She is currently utilizing 16 cm of water with a full-face mask and returns in followup and reports she has tried using the machine a bit more and actually has derived greater benefit from it. She typically retires around midnight and awakens anywhere between 4 and 6 a.m. depending upon her work schedule. She denies frequent nocturnal awakenings as well as nocturia, which had previously been an issue for her. She feels very well refreshed in the morning and feels as though she has more energy throughout the day. She has no difficulties with involuntary dozing or drowsy driving, which had also been a problem for her in the past. She naps usually for about an hour two to three times a week. She denies recent fevers or chills. [employer] gives her fresh supplies, and she is pleased with them. Past Medical History: As above. Medications and allergies are reviewed and as per electronic record. Review of Systems: Otherwise, a 10-point review of systems is negative except as noted in the HPI. Physical Examination: Heart rate 68, blood pressure 138/70, weight 335 pounds, BMI 49. General medical examination discloses an obese individual in no apparent distress. Respirations are even and unlabored. Gait is steady and stable. Compliance-card data was reviewed between data accrued between 07/16/2013 and 08/08/2013 and this discloses a residual AHI of 1.1, an elevated vibratory snore index of 10.6 (this is down from 22 in January of 2013), very well-contained leak, and she is utilizing the machine greater than or equal to 4 hours 79.2% of the time. Impression: Obstructive sleep apnea, reasonably well controlled. At the present time given no issues with pressure intolerance, to target residual snoring I will increase her pressure by 1 cm of water to 17 cm. We will see the patient back in six weeks' time in order to reassess if there is ongoing leak as well as if residual snoring has been ameliorated with this pressure change. All of her questions were answered. She understands and accepts our plan. Driving safety was reviewed with patient. If the patient feels too sleepy to drive they know not to drive. If they were to become sleepy while driving they know to cotton puller and nap. The case was discussed with Dr. Pan who saw the patient, participated in, and agrees with the formulation and decision making contained herewith. Ezra Lee III, MD CC: AURELIA DARNELL MD documented in this encounter Plan of Treatment Not on filedocumented as of this encounter Visit Diagnoses Diagnosis HAELY (obstructive sleep apnea) - Primary Obstructive sleep apnea (adult) (pediatr ic) documented in this encounter Care Teams Shot Examiner Relationship Specialty Start Date End Date Aurelia Darnell MD PCP - General 11/18/11 05/08/15 [facility] [place] [address] documented as of this encounter
--- OUTSIDE RECORDS SUMMARY | 2021-12-17 15:07 | XMS_ITS | Encounter Summary ---
:1975 Author Organization [facility] Address [address] [place] [address] Care Team Providers Name Role Phone Marcia Dickens APRN Primary Care Provider Encounter Details Date Type Department Care Team Description 11/26/2015 [place] [facility] [place] 2 diabetes Appointment [facility] mellitus [place] [id number] Social History Tobacco Use Types Packs/Day Years [...] Name Priority Date/Time Associated Diagnosis Comme nts TSH STAT 11/26/2015 2:46 PM Type 2 diabetes Result s for this EDT mellitus with procedure are in hyperglycemia the results section. HEMOGLOBIN A1C STAT 11/26/2015 2:46 PM Type 2 diabetes Resu lts for this EDT mellitus with procedure are in hyperglycemia the results section. documented in this encounter Results (ABNORMAL) TSH (11/26/2015 2:46 PM EDT) P athologist Signature TSH 11.80 (H) 0.27 - SINDY HUEY 4.20 [facility] mcIU/mL [facility] Specimen Anatomical Collection Method Collection Time Receive d Time (Source) Location / / Volume Laterality Blood specimen 11/26/2015 2:46 PM 016 2:52 (specimen) EDT PM EDT Resulting Agency Comment Spec In Lab Joe Huntley DO CHEMISTRY ORDERABLES Performing Organization Address City/State/[place] [address] (ABNORMAL) Hemoglobin A1c (11/26/2015 2:46 PM EDT) Analysis Performed At Patho logist Time Signature Hemoglobin A1C 9.8 (H) 4.3 - 5.6 [facility] Comment: Reference Range: 4.3 - [...] Mellitus, Diabetes Care 2013; 36: Suppl. 1, S67-98 Est Avg Gluc 235 mg/dL [facility] Comment: eAG equivalents for HbA1c percentages: HbA1c(%) ?eAG(mg/dL) 6.0 ?126 6.5 ?140 7.0 ?154 7.5 ?169 8.0 ?183 8.5 ?197 9.0 ?212 9.5 ?226 10.0 ? 240 Limitations: The eAG calculation has not been validated on women, individuals below 18 years old and above 70 years old, and individuals with hemoglobinopathies. Additional resources are available on e [place] website: [email or web address]/[facility] – SE[facility]INGadacalc Angelo MULLEN, Ariel J, Bill R, et al. ??Tr anslating the A1C assay into estimated average glucose values. ??Diabetes Care 2008:31(8):7313-6511. Specimen Anatomical Collection Method Collection Time Receive d Time (Source) Location / / Volume Laterality Blood specimen 11/26/2015 2:46 PM 016 2:52 (specimen) EDT PM EDT Resulting Agency Comment Spec In Lab Joe Huntley DO CHEMISTRY ORDERABLES Performing Organization Address City/State/[facility] [place] [address] documented in this encounter Visit Diagnoses Diagnosis Type 2 diabetes mellitus with hyperglyce ranjana Type II or unspecified type diabetes jose litus without mention of complication, not stated as uncontrolled documented in this encounter Care Teams Net Ui Developer Relationship Specialty Start Date End Date Marcia Dickens APRN PCP - General Family Medicine 10/30/[address] [place] [address] documented as of this encounter
--- OUTSIDE RECORDS SUMMARY | 2021-12-17 15:07 | XMS_ITS | Encounter Summary ---
:1975 [place] [address] Care Team Providers Name Role Phone Marcia Dickens APRN Primary Care Provider Reason for Visit Auth/Cert Specialty Diagnoses / Procedures Referred By Contact Refer red To Contact Diagnoses Vulvar abscess VAGINAL ABCESS Procedures ARCADIO IPI Referral ID Status Reason Start Date Expiration Date Visits Requ ested Visits Authorized [id number] 1 1 Encounter Details Date Type Department Care Team Description 09/28/2016 - Hospital Encounter 2 Sanjana Garay Vulvar abscess 09/30/2016 [facility] MD Diane (Primary Dx) [facility] & [place], [place] GYNECOLOGY [id number] [place], [place] [phone] [facility] Social History Tobacco Use Types Packs/Day Years [...] Sign Reading Time Taken Comments Blood Pressure 145/72 09/30/2016 12:27 PM EDT Pulse 72 09/30/2016 12:27 PM EDT Temperature 36.6 ??C (97.9 ??F) 09/30/2016 12:27 PM EDT Respiratory Rate 16 09/30/2016 12:27 PM EDT Oxygen Saturation 95% 09/30/2016 12:27 PM EDT Inhaled Oxygen Concentration - - Weight 123.3 kg (271 lb 14.4 oz) 09/28/2016 11:00 PM EDT Height 175.3 cm (5' 9) 09/28/2016 11:00 PM EDT Body Mass Index 40.15 09/28/2016 11:00 PM EDT documented in this encounter Discharge Summaries Sanjana Ovalle MD - 09/30/2016 2:33 PM EDT Discharge Summary Patient Name: Evita Singleton Patient Age: 41 y.o. Language: Chinese Race: White Ethnicity: Not nor Admit date: 09/28/2016 Discharge date and time: 09/30/2016 Attending Physician: Sanjana Ovalle MD Discharge Physician: Sanjana Ovalle MD Follow-up Recommendations for Providers: - F/u visit in office on 10/04 for wound check - VNA for wick change on 10/01 - Clindamycin 300 mg po q6h x 14 days - Final wound culture results pending - Per endocrinology, resume all home diabetes medications Inpatient Provider Contact Information: Dr. Sanjana Ovalle [facility] Gynecology phone number: [phone] Discharge Diagnoses (Hospital Problems) and Secondary Diagnoses (Chronic Problems): Active Hospital Problems Diagnosis ??? Vulvar abscess ??? Diabetes mellitus type 2 in obese ??? BMI 40.0-44.9, adult ??? Hypothyroidism ??? Hypertension Resolved Hospital Problems Diagnosis Date Resolved No resolved problems to display. Active Non-Hospital Problems Diagnosis ??? Depression ??? GERD (gastroesophageal reflux disease) ??? Chronic urticaria ??? Angioedema ??? HALEY (obstructive sleep apnea) Operations/Major Procedures: Bedside wound exploration and dressing changes History of Presentation: Evita Singleton is a 41 y.o. woman with PMH of poorly controlled insulin dependent type II DM,hypertension, obesity, osteoarthritis, depression, hyperlipidemia, GERD, and hypothyroidism who presents in transport for vulvar cellulitis. She was in her usual state of health until last Tuesday whenshe noticed a pimple on her right labia. She tried to pop it, but states no pus or drainage came out. It became more painful, and after two days it had gotten hard and increased in size to about the size of a golf ball. She was in [place] at the time on vacation, and presented to the local emergencydepartment where they treated her with oral doxycycline. She worsened over several days and returnedto the ER in [place] where they incised and drained the abscess. They treated her pain with oral ultram. However, the next day it worsened again, and she decided to come home early to go to her primarycare doctor. ?? She came home on Tuesday night and [facility]. There they lanced the collection, but per the patient did not get much drainage, and recommended she go to the emergency department. She went to her local emergency department where a CT scan showed cellulitis of the right labia and mons pubis. Due to her poorly controlled type II DM and persistent cellulitis that failed PO antibiotic therapy, she was transported to [facility] for further evaluation and glucose control. ?? 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 Currently using abstinence for contraception. Denies any history of STIs. ?? Hospital Course: ?? Right Vulvar Abscess: On HD #1, patient stated that her pain was still quite severe and she endorsed abdominal cramps and a mild headache. She denied fever, chills, and shortness of breath. She was started on IV clindamycin in addition to the IV ceftriaxone which had been started at the outside hospital. The night team performed an exam under fentanyl sedation with sterile q-tip and found that thewound tracked 5 cm superiorly, 1.5 cm deep, and 1 cm across. After probing, pink tissue noted insideabscess with good blood flow and thick, white purulent drainage noted coming form incision. Indurated region extended approximately 7 cm by 3.5 cm. A wound culture was take at that time and on gram stain had WBCs and gram positive cocci. The patient's wound was packed with 10cm of sterile packing, which allowed it to continue to drain. Ceftriaxone IV was discontinued. ?? - On HD #2, the patient felt her pain had decreased. Her wound packing was removed and replaced at the bedside. Type 2 Diabetes: On HD #1, patient was restarted on her home regimen including Novolo:5 carb correction and 1 unit for every 15 mg/dL over 150 mg/dL, Lantus: 32 units BID, Victoza: 1.8 mg subQ daily. She was seen by the inpatient diabetes management team who recommended increasing her lantus whileinhouse to 40U BID, however, upon discharge keeping at 32U BID given she will resume Victoza. Patient was discharged on HD #2 with follow up with VNA and in the office. She remained afebrile with stable vital signs. Vital signs at Discharge: BP: 139/70, Heart Rate: 59, Temp: 36.4 ??C (97.5 ??F), Resp: 17, BMI (Calculated): 40.1 Height: 175.3 cm (5' 9) (09/28/162299) Weight - Scale: (!) 123.3 kg (271 lb 14.4 oz) (09/28/162299) Functional and Cognitive status: Fully ambulatory and cognition intact at baseline Important Studies and Lab Data: Labs: Recent Labs 09/29/16 0743 WBC 5.5 HGB 12.2 HCT 36.3 PLATELET 232 Recent Labs 09/29/16 0743 NA 138 K 3.6 CL 98 CO2 24 Studies: ?? Body Fluid Culture, Aerobic & Anaerobic Fluid [[id number]] Collected: 09/29/16100 ? Lab Status: Preliminary result Specimen: Fluid Updated: 09/30/1650 ? Body fluid culture [[id number]] (Abnormal) Collected: 09/29/16100 ? Lab Status: Preliminary result Specimen: Fluid Updated: 09/30/1650 ? Body Fluid Culture No growth to date. (A) ? Gram Stain -- (A) ? Few White Blood Cells seen Moderate Gram Positive Cocci seen Pending Studies and Lab Data: Microbiology Discharge Conditions/Prognosis: Good / Good Discharge to: Home Updated Allergies/ADRs: Allergies Allergen Reactions ??? Latex Anaphylaxis ??? Sulfa (Sulfonamide Antibiotics) Anaphylaxis and Hives Immunizations Given this Hospitalization: Immunization History Administered Date(s) Administered ??? Influenza PF, Split 01/18/2011, 01/13/2012 ??? Influenza Vaccine W/preservative, Quadrivalent 11/05/2013, 12/24/2014 ??? Influenza Vaccine, Unspecified Formulation 12/24/2014 ??? Influenza Vaccine, Whole 01/25/2008, 01/05/2010 ??? Pneumococcal Polyvalent 23 07/16/2011 ??? Td Vaccine, Absorbed, PF, Adult 07/13/2010 ??? Tdap Vaccine 07/13/2010 Discharge Medications: Your Medications UNREVIEWED medications - Discuss With Your Provider Dose Details ALEVE 220 mg Cap Take by mouth. Generic drug: naproxen sodium Refills: 0 FLUoxetine 20 mg Cap Commonly known as: PROzac Take 1 capsule by mouth daily. 20 mg Quantity: 90 capsule Refills: 3 hyaluronate 16 mg/2 mL Syrg Commonly known as: HYLAN,SYNVISC Inject into the articular space once. Every 6 months Refills: 0 hydrOXYzine 25 mg Tab Commonly known as: ATARAX Take 1 tablet by mouth 3 times daily as needed for Itching. Do not operate machinery on this medication. 25 mg Quantity: 30 tablet Refills: 12 insulin glargine 300 unit/mL (1.5 mL) Inpn Commonly known as: TOUJEO SOLOSTAR Inject 165 Units subcutaneously daily. 165 Units Quantity: 1 Box Refills: 11 levocetirizine 5 mg Tab Commonly known as: XYZAL Take 1 tablet by mouth daily. 5 mg Quantity: 30 tablet Refills: 11 levothyroxine 200 mcg Tab Commonly known as: SYNTHROID Take 1 tablet by mouth daily. 200 mcg Quantity: 90 tablet Refills: 3 LIPITOR 40 mg Tab Take 40 mg by mouth daily. Generic drug: atorvastatin 40 mg Refills: 0 liraglutide 0.6 mg/0.1 mL (18 mg/3 mL) Pnij Commonly known as: VICTOZA Inject 1.8 mg subcutaneously daily. 0.6 mg daily for 2 wk, then increase to 1.2 mg daily for 2 wk, then increase to 1.8mg daily thereafter. 1.8 mg Quantity: 3 Syringe Refills: 11 metFORMIN 500 mg Tablet sr Commonly known as: GLUCOPHAGE-XR Take 2 tablets by mouth 2 times daily (with meals). 1000 mg Quantity: 360 tablet Refills: 3 multivitamin Tab Commonly known as: THERAGRAN Take 1 tablet by mouth daily. 1 tablet Refills: 0 NovoLOG Flexpen Inpn Inject 4-20 Units subcutaneously 3 times daily. Generic drug: insulin aspart 4-20 Units Refills: 0 pantoprazole 40 mg Grps Commonly known as: PROTONIX Take 40 mg by mouth daily. 40 mg Quantity: 90 each Refills: 3 SUMAtriptan 50 mg Tab Commonly known as: IMITREX Take 1 tablet by mouth as needed for Migraine (Take 50 mg at onset of migraine. May take additional 50 mg in 2 h if no relief). 50 mg Quantity: 18 tablet Refills: 0 triamcinolone 0.025 % Crea Commonly known as: KENALOG Apply topically 2 times daily. Quantity: 30 g Refills: 1 TYLENOL ARTHRITIS PAIN 650 mg Tbsr Take 650 mg by mouth every 8 hours as needed. Do not exceed 6 tabs in 24 hours Generic drug: acetaminophen 650 mg Refills: 0 Smoking Status at Discharge: History Smoking Status ??? Former Smoker ??? Packs/day: 2.00 ??? Years: 10.00 ??? Types: Cigarettes ??? Quit date: 09/04/2010 Smokeless Tobacco ??? Never Used Comment: quits during Instructions Given to Patient at Discharge: There are no outpatient Patient Instructions on file for this admission. General Instructions None Future Appointments and Orders Future Appointments Provider Department Dept Phone 11/24/2016 1:00 PM LAB, [facility] Lab 11/24/2016 2:00 PM Kary Ashford APRN Endocrinology [phone] 02/23/2017 3:00 PM LAB, [facility] Lab 02/23/2017 4:00 PM Liliana Berkowitz MD Endocrinology [phone] Discharge References/Attachments None Provider Contact Information: Marcia Dickens APRN [phone] documented in this encounter Discharge Instructions Patient InstructionsBrandy Tolliver MD - 09/30/2016 2:13 PM EDT PATIENT DISCHARGE INSTRUCTIONS BRANDY TOLLIVER MD Contact: --Gynecology phone number: [phone] --After 5 PM on weekdays / weekends: [phone] and ask for the OBGYN provider induction heat treater Follow-up: Future Appointments and Orders Future Appointments Provider Department Dept Phone 10/04/2016 2:15 PM Brandy Tolliver MD Obstetrics and Gynecology [phone] You will have visiting nurse visit you on 10/01/16 for a wick change Antibiotics: Please take clindamycin every 6 hours for 14 days total Call your doctor if you develop: --A fever over 101 degrees --Severe pain --Heavy vaginal bleeding --Increasing pain, redness, or discharge at your incision Activity level: No restrictions. Activity as tolerated Diet: You may resume your regular diet. Be sure you drink plenty of fluids. Please use colace 100-200 mg twice daily for the entire time that you are taking pain medication to keep your bowel movementssoft and regular. If you are constipated or have not had a bowel movement in 3 days, please use milkof magnesia (or miralax) as directed over the counter. Shower/Bath: Showering is fine. Short baths are OK. Continue sits baths for comfort. Pain medications: - Please use naproxen and tylenol for pain Insulin management: 1. Novolo:5 carb correction, additional bolus 1 unit for every 15 mg/dL over 150 mg/dL 2. Lantus: 32 units BID 3. Victoza: 1.8 mg subQ daily (OK to start at lower dose) 4. Metformin XR: 1000 mg BID documented in this encounter Medications at Time of Discharge Medication Sig Dispensed Refills Start Date End Date atorvastatin (LIPITOR) Take 40 mg by mouth 0 04/08 40 mg Tablet daily. insulin aspart Inject 4-20 Units 0 05/05/2015 (NOVOLOG FLEXPEN) subcutaneously 3 times Insulin Pen daily. Pantoprazole Take 40 mg by mouth 90 each 3 11/30/2013 (PROTONIX) [address] for susp in PacketIndications: GERD (gastroesophageal reflux [...] Inject 165 Units 1 Box 11 08/19/2016 (TOUSHAKIR SOLOSTAR) 300 subcutaneously daily. unit/mL (1.5 mL) Insulin [...] 24 hours documented as of this encounter Progress Notes Christine Singer RN - 09/30/2016 4:14 PM EDT RN gave patient AVS. Reviewed AVS- verbalized understanding denied questions. IV catheter removed with tip intact and pressure dressing applied. RN checked BS before she had left and gave correction dose. DC summary faxed to facility. Patient going home by car, refused transportation to car by wheelchair. Savannah Interiano DO - 09/30/2016 10:06 AM EDT Diabetes Care Team FOLLOW UP NOTE [facility] Name: Evita Singleton Date: 09/30/16 Room: [address] [place] [address] HPI: Mrs. Singleton is a 41 y.o.female with PMH significant for Diabetes Mellitus type II, HTN, hypothyroidism and BMI >40. She was admitted 09/28/2016 after presenting with vulvar abscess/infection and is currently being managed by OBGYN with IV antibiotics. Diabetes care team was consulted to aid in the management of her glycemic control. New events since last time seen: No new events reported, patient doing well today Past Medical History: Diagnosis Date ??? Anxiety disorder ??? Arthritis of knee, right 05/24/2011 X ray 05/24/11: some osteophytes, some narrowing; naproxen; PT; weight reduction recommended; may need knee replacement in future ??? Astigmatism 11/04/2010 ??? Chronic urticaria 09/21/2012 ??? Circulatory disease 2009 varicose veins ??? Depression ??? Diabetes mellitus type 2 in obese stopped Metformin 05/2009 ??? Elevated blood pressure 09/20/2012 History of hypertension. Lisinopril stopped because of angioedema. ??? Eye problems 2008 stigmatism ??? GERD (gastroesophageal reflux disease) ??? Headache 2000 migraine and regular headaches ??? Hyperlipidemia ??? Hypertensive disease 2005 high blood pressure ??? Hypothyroidism 2001 on meds prior to ??? Idiopathic urticaria - by history 06/04/2013 ??? Myopia 11/04/2010 ??? Myopia with astigmatism 11/21/2011 ??? Obesity BMI 44 mg/kg2 ??? Osteoarthritis 2012 knee arthritis ??? Pruritus 09/20/2012 Generalized pruritus for the last year. Involves entire body. Stable in the last year. Associated with hives on arms and legs 1-2 times per week. Hives last < 1hour. No associated scars or bruises.No association with cold temperatures, heat, sunlight or pressure. History of allergy to sulfa ( hives and difficulty breathing) and latex ( hives). One episode of angioedema of the lip about two months ago. Lasted about one hour. She was on lisinopril about two weeks prior to the swelling episodes. Two days ago had swelling of the corner of her lip and it lasted less than 5 minutes. No difficulty breathing or SOB. Tried Kari, zyrtec and Claritin without any change in the pruritus. No improvementwith oatmeal baths. No new meds. No new foods in diet. She takes Aleve most days of the week for osteoarthritis of the knee. Takes ibuprofen less than once monthly. No change in soaps, moisturizers or detergents. She uses dryer sheets. No insect bites/stings. No pets currently. Had dog and cat u ??? Right knee pain 08/30/2011 ??? Shoulder impingement syndrome 09/03/2010 ??? Skin disorder 1984 acne ??? Type 2 diabetes mellitus 11/04/2010 ??? Urinary disorder 2004 urinary incontinence with stress...gall stones Past Surgical History: Procedure Laterality Date ??? SECTION 12/1999 twins ??? CHOLECYSTECTOMY 2006 ??? PRO DELIVERY ONLY 07/10/2010 ?? DELIVERY performed by ELEANOR NELSON at [facility] ??? PRO UNLISTED CRANIO/MAXILLOFACIAL SURG 2008 all 4 wisdom teeth out ??? PRO UNLISTED DIAGNOSTIC GASTROENTEROLOGY PROCEDURE 2002 gall bladder...gall stones ??? WISDOM TOOTH EXTRACTION Family History Problem Relation Age of Onset [...] Aunt ??? High Blood Pressure Maternal Uncle Current Medications: Scheduled Meds: ??? atorvastatin 40 mg Oral Daily ??? FLUoxetine 20 mg Oral Daily ??? levothyroxine 200 mcg Oral QAM ??? sodium chloride 0.9 % 5 mL Intravenous BID ??? insulin lispro 1-20 Units Subcutaneous TID WC ??? insulin glargine 32 Units Subcutaneous BID ??? pantoprazole 40 mg Oral Daily Or ??? pantoprazole 40 mg Intravenous Daily ??? lisinopril 5 mg Oral Daily ??? norethindrone 2.5 mg Oral Daily ? ? insulin lispro 3-12 Units Subcutaneous 4 Times Daily AC & HS Continuous Infusions: PRN Meds:.dextrose 50% OR glucagon (human recombinant), sodium chloride 0.9 %, lidocaine, ondansetron OR ondansetron, acetaminophen, naproxen, SUMAtriptan Allergies Allergen Reactions ??? Latex Anaphylaxis ??? Sulfa (Sulfonamide Antibiotics) Anaphylaxis and Hives Physical Exam: BP 139/67 (BP Location (NBP): Left arm) Pulse 67 Temp 36.7 ??C (98.1 ??F) (Oral) Resp 16 Ht 175.3 cm (5' 9) Wt (!) 123.3 kg (271 lb 14.4 oz) SpO2 98% BMI 40.15 kg/m2 General appearance - alert, well appearing, and in no distress Chest - clear to auscultation, no wheezes, rales or rhonchi, symmetric air entry Heart - normal rate, regular rhythm, normal S1, S2, no murmurs, rubs, clicks or gallops Abdomen - soft, nontender, nondistended, no masses or organomegaly Extremities - peripheral pulses normal, no pedal edema, no clubbing or cyanosis Assessment and plan: Mrs. Singleton is a 41 y.o.female with PMH significant for Diabetes Mellitus type II, HTN, hypothyroidism and BMI >40 who is currently being managed by OBGYN with IV antibiotics in treatment of her vulvar infection. Diabetes care team was consulted to aid in the management of her glycemic control. She was started on her home regimen at the time of admission. Yesterday the patient was doing moderately on this regimen however, it was recommended that Metformin be discontinued. Her BG have been elevated through the night therefore she will need an adjustment of her dosing today. Recommendations: - Increase Lantus to 40 mg BID - Consider addition of pre-snack correction factor also as the patient seems to be snacking quite a bit as well Thank you for allowing us participate in the care of this patient. Patient was discussed with the attending provider, Dr. Berkowitz. Savannah Interiano DO Endocrinology, Diabetes and Metabolism Fellow 09/30/2016 10:07 AM Associated attestation - Liliana Berkowitz MD - 09/30/2016 9:29 PM EDT I discussed this patient with Dr. Interiano. I reviewed the moran portions of the history and physical exam, and reviewed pertinent lab data. I was involved in all medical decision making and agree with this plan. Primary team contacted me later this afternoon to notify me that she was going to be getting discharged home today, and would be restarting her victoza as an outpatient. In this case I advised continuing her current Lantus dose of 32 units BID with the anticipation that adding back victoza would help ameliorate the hyperglycemia that prompted our earlier recommendations. LILIANA BERKOWITZ MD Director Dancepopcorn machine operator Section of Endocrinology [facility] Maria Dolores Melendez RN - 09/30/2016 8:31 AM EDT The patient has been provided a list of Home Health Agencies which serve their preferred geographic area. A letter describing our affiliations was reviewed with them and they were educated about their right to choose where referrals are placed. Patient requests referral to: [facility] [employer]. Expected date of discharge: Ready for discharge Orders pended and referral routed to the Security Project Manager for matching with agency and to provideany required information. Henry Parker MD - 09/30/2016 6:28 AM EDT Gynecology Progress Note ID: 41 y.o. female, with a past medical history significant for poorly controlled type 2 diabetes oninsulin, who presents to [facility] in transport from outside hospital for vulvar cellulitis Subjective: slept well overnight. Rates pain at a 4-5/10, well controlled with home naproxen dose. Denies nausea, vomiting, shortness of breath, dizziness. Had bed sheets changed a few times due to continued drainage from wound. Denies fever, chills. No issues voiding. Was able to get up and take a shower this AM. ROS: All systems are reviewed and are otherwise normal. Physical Exam: Last value Range last 8 hrs Temperature Temp: 36.4 ??C (97.5 ??F) Temp: [36.3 ??C (97.3 ??F)-36.4 ??C (97.5 ??F)] Heart Rate Heart Rate: 59 Heart Rate: [59] Blood Pressure BP: 132/76 BP: (128-132)/(63-76) Respiratory Rate Resp: 16 Resp: [15-16] SpO2 SpO2: 98 % SpO2: [97 %-98 %] Intake/Output Summary (Last 24 hours) at 09/30/16627 Last data filed at 09/30/16 0158 Gross per 24 hour Intake 400 ml Output 1350 ml Net -950 ml I/O this shift: In: 200 [P.O.:200] Out: 550 [Urine:550] Gen: Resting comfortably in bed. NAD. Neuro: Alert and oriented. Cardiac: RRR. No murmurs, rubs, or gallops. Pulm: CTAB. No wheezes, rales, or rhonci. Abd: + BS. Soft. Non tender. No rebound or guarding. : Wound visualized with wick in place, continuing to drain serosanguinous drainage, minimal erythema, surrounding skin soft Extremities: No lower extremity edema. SCDs in place. Laboratory (Last 24 Hours): Recent Labs 09/29/16 0743 WBC 5.5 HGB 12.2 HCT 36.3 PLATELET 232 Recent Labs 09/29/16 0743 NA 138 K 3.6 CL 98 CO2 24 Wound culture 09/29: pending Assessment and Plan Evita Singleton is a 41 y.o. woman with complex past medical history who presents in transportfor management of a right labial cellulitis that failed outpatient medical management now on IV antibiotics s/p multiple I&Ds and clinically improving. Please see the problem based plan of care below. ?? #Vulvar cellulitis: Afebrile, no evidence of worsening infection, wick continuous to drain - Continue IV Clindamycin, will likely switch to PO prior to discharge - Wick changed this AM at bedside with EMLA cream for topical analgesia -Patient denies needing pain control, but will write for acetaminophen and home dose naproxen sodiumPRN -Culture 09/29- no growth to date x 1, gram stain shows moderate gram + cocci -Monitor vitals closely for signs of systemic infection ?? #Type II DM: Poorly controlled at home at present. Fasting blood sugar this AM 221. Will try to improve control while hospitalized for better wound healing. -Continue home insulin regimen (Novolo:5 carb correction and 1 unit for every 15 mg/dL over 150 mg/dL, Lantus: 32 units BID) - Will re-consult endocrinology for new recs given elevated fasting sugars -Consult nutrition -Carb control diet ?? #Hypothyroidism -Continue home dose Synthroid 200 mcg ?? #Hx depression -Continue home dose Prozac ?? #Hyperlipidemia -Continue home dose atorvostatin ?? #GI -Protonix daily for GERD -Zofran PRN nausea -Carb control diet ?? #Pulmonary: Hx obstructive sleep apnea -Apply supplemental O2 as needed to maintain O2 saturation >92% ?? #Prophylaxis -Encourage ambulation -SCDs ?? Dispo: Anticipate discharge pending clinica improvementb with no signs of worsening infection Code Status: Full Code Patient seen and evaluated with Dr. Ovalle, attending sped teacher Henry Parker MD PGY-1 09/30/2016 Gynecology Service Pager: [phone] (M-F [phone]), otherwise page [phone] Associated attestation - Sanjana Ovalle MD - 09/30/2016 12:52 PM EDT I saw and evaluated Evita this AM and have discussed her with Christian Parker and Silvia. I have read andagree with Dr Parker's progress note. Evita notes improvement in pain and decrease in the size of the R vulvar swelling.Voiding and ambulating. Tolerated wick change this AM with EMLA. Pleased to work on improved glucose control. Does not appear to require drainage procedure in the Operating Room as she is responding to IV clindamycin along with drainage. Will proceed with discharge on PO Clindamycin, with plan for VNA visit tomorrow with wick change, then f/u at [facility] on Tuesday. Sitz baths. Continue to work on improving glucose control. MD Silvia FRANCISCO Kumiko E, MD - 09/29/2016 12:24 PM EDT PGY-4 BRICK SETTER Inpatient Procedure Note CC: Right labial abscess packing Patient was premedicated with oxycodone 5 mg po x 1 and Emla cream was applied to the right vulva atsite of previous I+D. Using a hemostat clamp it was confirmed that the abscess cavity was 1 cm deep and tracked approximately 5 cm superiorly. Approximately 10 cm of 1/2 inch packing was inserted into the cavity. Patient tolerated the procedure well. There were no complications and bleeding was minimal. Micro: Wound culture: WBCs, gram + cocci A/P: 41 y.o. HD #1 for right vulvar abscess and poorly controlled T2DM - Continue clinda IV - D/C ceftriaxone IV - Continued admission for IV antibiotics and glycemic control Seen with BRANDY Cano MD PGY-4 Associated attestation - Sanjana Ovalle MD - 09/30/2016 8:07 AM EDT I saw and evaluated Evita with Dr Tolliver and assisted with packing procedure. No indication for operative intervention at this time, appears to be improving with IV antibiotics,drainage and improving glucose control. MD Daphne FRANCISCO Susan, RN - 09/29/2016 4:59 AM EDT Pharmacy remessaged regarding insulin not arriving to unit. Liliana Serna RN - 09/29/2016 4:45 AM EDT Awaiting insulin delivery from pharmacy for BG elevation Liliana Serna RN - 09/29/2016 2:21 AM EDT Patient awake in bed, quiet, denies pain and has no needs identified. Culture of abscess obtained byMD's and sent by nursing to lab. Patient received IV Fentanyl for bedside exam and didn't like the way it made me feel but otherwise tolerated well. Awaiting orders to be placed. BRICK SETTER service aware that patient uses CPAP. Patient's mother and son have gone home. Liliana Serna RN - 09/28/2016 11:30 PM EDT Patient brought to unit [facility] via WC from ED by MATEO Caro. Awake and alert, voided 430 cc clear dark mague urine, small amt bloody drainage on toilet tissue.BG 235, states she has not taken any of her diabetes medicine today. Denies nausea, has been NPO. Assisted to change into gown and nonskid slippers. Latex allergy noted. Skin warm and dry, small dry scab on each of lower legs, no erythema noted. Lungs clear, reports history of sleep apnea and wears CPAP. No history of recent falls. BRICK SETTER paged to make aware of patient's arrival. documented in this encounter H&P Notes Kristen Brizuela MD - 09/29/2016 12:04 AM EDT Gynecology H & P Reason for Visit: 41 y.o. Female presents to [facility] in transport from outside hospital for vulvar cellulitis HPI: Evita Singleton is a 41 y.o. woman with PMH of poorly controlled insulin dependent type II DM,hypertension, obesity, osteoarthritis, depression, hyperlipidemia, GERD, and hypothyroidism who presents in transport for vulvar cellulitis. She was in her usual state of health until last Tuesday whenshe noticed a pimple on her right labia. She tried to pop it, but states no pus or drainage came out. It became more painful, and after two days it had gotten hard and increased in size to about the size of a golf ball. She was in [place] at the time on vacation, and presented to the local emergencydepartment where they treated her with oral doxycycline. She worsened over several days and returnedto the ER in [place] where they incised and drained the abscess. They treated her pain with oral ultram. However, the next day it worsened again, and she decided to come home early to go to her primarycare doctor. She came home on Tuesday night and [facility]. There they lanced the collection, but per the patient did not get much drainage, and recommended she go to the emergency department. She went to her local emergency department where a CT scan showed cellulitis of the right labia and mons pubis. Due to her poorly controlled type II DM and persistent cellulitis that failed PO antibiotic therapy, she was transported her for further evaluation and glucose control. States today the pain is still quite bad, but does not think she needs any pain medication at this time. Denies fever, chills, nausea, vomiting, change in bowel habits, melena, dysuria, hematuria, inability to void, chest pain, shortness of breath, cough. Endorses loose stool this morning, which she states is normal for her. Also endorses abdominal cramps/pain, mild headache. She last ate food at 8:30 PM on 09/27/16. Reports her blood glucose typically ranges from 325-375 mg/dL when checked at home on her current medication regimen. She is seen by endocrinology here at [facility] for her diabetes. Her current regimen is as follows: 1. Novolo:5 carb correction, additional bolus 1 unit for every 15 mg/dL over 150 mg/dL 2. Lantus: 32 units BID 3. Victoza: 1.8 mg subQ daily 4. Metformin XR: 1000 mg BID BRICK SETTER History: Taking Norethrindrone for years to prevent having heavy, abnormal periods. Currently using abstinence for contraception. Denies any history of STIs. Review of Systems: -As per HPI, otherwise negative review of systems Past Medical and Surgical History: Past Medical History: Diagnosis Date ??? Anxiety disorder ??? Chronic urticaria 09/21/2012 ??? Circulatory disease 2009 varicose veins ??? Depression ??? Diabetes mellitus type 2 in obese stopped Metformin 05/2009 ??? Eye problems 2008 stigmatism ??? GERD (gastroesophageal reflux disease) ??? Headache 2000 migraine and regular headaches ??? Hyperlipidemia ??? Hypertensive disease 2005 high blood pressure ??? Hypothyroidism 2001 on meds prior to ??? Obesity BMI 44 mg/kg2 ??? Osteoarthritis 2011 knee arthritis ??? Skin disorder 1984 acne ??? Urinary disorder 2004 urinary incontinence with stress...gall stones Past Surgical History: Procedure Laterality Date ??? SECTION 12/1999 twins ??? CHOLECYSTECTOMY 2005 ??? PRO DELIVERY ONLY 07/10/2010 ?? DELIVERY performed by ELEANOR NELSON at [facility] ??? PRO UNLISTED CRANIO/MAXILLOFACIAL SURG 2008 all 4 wisdom teeth out ??? PRO UNLISTED DIAGNOSTIC GASTROENTEROLOGY PROCEDURE 2003 gall bladder...gall stones ??? WISDOM TOOTH EXTRACTION Past Obstetric History: Obstetric History T3 L4 SAB0 TAB0 Ectopic0 Multiple1 Live Births0 Prior To Admission Medications: Prescriptions Prior to Admission Medication Sig Dispense Refill Last Dose ??? levothyroxine (SYNTHROID) 200 mcg Tablet Take 1 tablet by mouth daily. 90 tablet 3 ??? insulin glargine (TOUJEO SOLOSTAR) 300 unit/mL (1.5 mL) Insulin Pen Inject 165 Units subcutaneously daily. 1 Box 11 ??? liraglutide (VICTOZA) 0.6 mg/0.1 mL (18 mg/3 mL) Pen Injector Inject 1.8 mg subcutaneously daily. 0.6 mg daily for 2 wk, then increase to 1.2 mg daily for 2 wk, then increase to 1.8mg daily thereafter. 3 Syringe 11 Taking at Unknown time ??? metFORMIN (GLUCOPHAGE-XR) 500 mg Tablet Sustained Release 24 hr Take 2 tablets by mouth 2 times daily (with meals). 360 tablet 3 Taking at Unknown time ??? atorvastatin (LIPITOR) 40 mg Tablet Take 40 mg by mouth daily. Taking at Unknown time ??? insulin aspart (NOVOLOG FLEXPEN) Insulin Pen Inject 4-20 Units subcutaneously 3 times daily. Taking at Unknown time ??? FLUoxetine (PROZAC) 20 mg Capsule Take 1 capsule by mouth daily. 90 capsule 3 Taking at Unknown time ??? Pantoprazole (PROTONIX) [address] for susp in Packet Take 40 mg by mouth daily. 90 each 3 Taking at Unknown time ??? naproxen sodium (ALEVE) 220 mg Capsule Take by mouth. Taking at Unknown time ??? hyaluronate (HYLAN,SYNVISC) 16 mg/2 mL Syringe Inject into the articular space once. Every 6 months Taking at Unknown time ??? SUMAtriptan (IMITREX) 50 mg tablet Take 1 tablet by mouth as needed for Migraine (Take 50 mg at onset of migraine. May take additional 50 mg in 2 h if no relief). 18 tablet 0 Taking at Unknown time ??? Levocetirizine (XYZAL) 5 mg Tab Take 1 tablet by mouth daily. 30 tablet 11 Taking at Unknown time ??? hydrOXYzine (ATARAX) 25 mg tablet Take 1 tablet by mouth 3 times daily as needed for Itching. Donot operate machinery on this medication. 30 tablet 12 Taking at Unknown time ??? triamcinolone (KENALOG) 0.025 % cream Apply topically 2 times daily. 30 g 1 Taking at Unknown time ??? acetaminophen (TYLENOL ARTHRITIS PAIN) 650 mg CR tablet Take 650 mg by mouth every 8 hours as needed. Do not exceed 6 tabs in 24 hours Taking at Unknown time ??? multivitamin (THERAGRAN) tablet Take 1 tablet by mouth daily. Taking at Unknown time Allergies: Allergies Allergen Reactions ??? Latex Anaphylaxis ??? Sulfa (Sulfonamide Antibiotics) Anaphylaxis and Hives Family History: Family History Problem Relation Age of Onset [...] Aunt ??? High Blood Pressure Maternal Uncle Social History and Habits: Social History Social History ??? Marital status: Single Spouse name: N/A ??? Number of children: N/A ??? Years of education: N/A Occupational History ??? [employer] Social History Main Topics ??? Smoking [...] left that relationship 2010 Social History Narrative ??? No narrative on file Pt and her 6 year old son live together in [place]. Her twins are 17 and in foster care. Physical Exam: Last Set of Vitals: Last value Range last 24 hrs Temperature Temp: 36.4 ??C (97.5 ??F) Temp: [36.4 ??C (97.5 ??F)-36.6 ??C (97.9 ??F)] Heart Rate Heart Rate: 59 Heart Rate: [59-80] Blood Pressure BP: 139/70 BP: (139-152)/(70-90) Respiratory Rate Resp: 17 Resp: [17-20] SpO2 SpO2: 97 % SpO2: [97 %-98 %] Physical Exam Gen: Appears well, NAD, sitting up in bed watching TV Lungs: CTAB, no wheezes, rales, rhonchi CV: Regular rate/rhythm, grade II/ systolic decrescendo murmur appreciated, no radiation to carotids, no rubs or gallops Abd: Soft, mildly tender in RUQ, non-tender elsewhere, no rebound or guarding, normal bowel sounds : Left labia majora normal in size and appearance, right labia majora edematous without erythema, 1 cm incision noted covered in dried blood with purulent, bloody drainage appreciated. Upon further examination with sterile gloves and better lighting, single suture noted at opening, which was removed. Incision then probed with sterile q-tip tracking 5 cm superiorly, 1.5 cm deep, and 1 cm across. After probing, pink tissue noted inside abscess with good blood flow and thick, white purulent drainage noted coming form incision. Indurated region extends approximately 7 cm by 3.5 cm. Tender throughout to palpation. Extremities: Warm and well perfused, non-tender, no edema Laboratory (Last 24 Hours): From OSH on 09/27: CBC: WBC 5.7, RBC 4.3, Hgb 12.8, Hct 37.6, Plt 256, Neutrophils 62.5% CMP: Na 133 (L), K 3.9, Cl 97, CO2 26, Ca 9.6, Glucose 352 (H), BUN 15, Cr 0.87, AST 232 (H), ALT 83(H) Microbiology: Body fluid culture collected at bedside and pending Pertinent Radiographic/Diagnostic Results: I have independently visualized the CT abdomen/pelvis from OSH, and I agree with the interpretation. Soft tissues: There is dermal thickening and subcutaneous induration of the right mons pubis and labia majora. There is hyper-attenuating structure between the skin folds which may be iatrogenic and should be correlated clinically. There is no subcutaneous air. There is no extension to the urogenitaltriangle... ...IMPRESSION: Cellulitis of the right mons pubis and labia majora without discrete drainable abscess or subcutaneous air. Diagnostic Tests/Procedures Ordered: 1. Aerobic and anaerobic culture of fluid Assessment/Plan: Evita Singleton is a 41 y.o. woman with complex past medical history who presents in transportfor management of a right labial cellulitis that failed outpatient medical management on PO doxycycline. As it is currently draining well from her prior I&D site and the tissue below the surface appears healthy with good blood flow, we will try IV antibiotic therapy first. This also allows time toimprove her glucose control if she requires further drainage or debridement in the operating room. Please see the problem based plan of care below. #Vulvar cellulitis: Afebrile currently, and tissue appears healthy. Given type II DM, some concern for necrotizing infection, though unlikely given normal pain and vitalized tissue on exam. -Start IV ceftriaxone and clindamycin for MRSA and aerobic/anaerobic coverage -Leave incision open to allow for drainage -Patient denies needing pain control, but will write for acetaminophen and home dose naproxen sodiumPRN -AM CBC with diff -Culture pending, will narrow antibiotic coverage as able -Monitor vitals closely for signs of systemic infection #Type II DM: Poorly controlled at home at present. Will try to improve control while hospitalized for better wound healing. -Continue home insulin regimen (Novolo:5 carb correction and 1 unit for every 15 mg/dL over 150 mg/dL, Lantus: 32 units BID, Victoza: 1.8 mg subQ daily) -Metformin 1000 mg BID -Consult endocrinology for assistance in management -Consult nutrition -Carb control diet #Hypothyroidism -Continue home dose Synthroid #Hx depression -Continue home dose Prozac #Hyperlipidemia -Continue home dose atorvostatin #GI -Protonix daily for GERD -Zofran PRN nausea -Carb control diet #Pulmonary: Hx obstructive sleep apnea -Apply supplemental O2 as needed to maintain O2 saturation >92% #Prophylaxis -Encourage ambulation -SCDs Patient seen and evaluated with Dr. Brizuela, attending sped teacher Rosita Lam MD PGY3 09/29/2016 I have seen and evaluated the patient and reviewed the above history with Dr. Lam. I agree with the details as written. The assessment and plan were formulated in discussion with me and I agree with them as documented. Patient is 41 year old with PMHX notable for poorly controlled type 2 DM, hypothyroidism, OA, GERD, depression and hypertension presents with vulvar cellulitis which failed oral therapy. Patient's exam today is without fever, with tenderness consistent with exam (and not requiring pain medication), no necrotic tissue on exam and patient's imaging shows no gas on CT. Given this, I do not suspect necrotizing infection. Most likely organisms are MSSA, MRSA, Enterobacter and anerobes. We chose clindamycin to cover MRSA, MSSA and some anerobes, as well as ceftriaxone to cover Enterobacter. We discussed that if the patient improves over 24-48 hours then we may be able to change to an oral regimen for completion of therapy. However, we also discussed that if she is not improved, then surgery for enlarging the incision and wound irrigation KRISTEN BRIZUELA MD documented in this encounter Miscellaneous Notes Consult Note - Denise Dobbins, RD - 09/30/2016 12:01 PM EDT Nutrition Consult Note Evita Singleton is a 41 y.o. female Reason for intervention: Education Nutrition Recommendations: Enc pt to take insulin in 1:5 ratio w/ snacks Prn insulin order for snacks requested from in-pt diabetes team Patient Active Problem List Diagnosis Code ??? Depression F32.9 ??? GERD (gastroesophageal reflux disease) K21.9 ??? Hypothyroidism E03.9 ??? BMI 40.0-44.9, adult Z68.41 ??? Diabetes mellitus type 2 in obese E11.9, E66.9 ??? Hypertension I10 ??? HALEY (obstructive sleep apnea) G47.33 ??? Angioedema T78.3XXA ??? Chronic urticaria L50.8 ??? Vulvar abscess N76.4 Past Medical History: Diagnosis Date ??? Anxiety disorder ??? Arthritis of knee, right 05/24/2011 X ray 05/24/11: some osteophytes, some narrowing; naproxen; PT; weight reduction recommended; may need knee replacement in future ??? Astigmatism 11/04/2010 ??? Chronic urticaria 09/21/2012 ??? Circulatory disease 2009 varicose veins ??? Depression ??? Diabetes mellitus type 2 in obese stopped Metformin 05/2009 ??? Elevated blood pressure 09/20/2012 History of hypertension. Lisinopril stopped because of angioedema. ??? Eye problems 2008 stigmatism ??? GERD (gastroesophageal reflux disease) ??? Headache 2000 migraine and regular headaches ??? Hyperlipidemia ??? Hypertensive disease 2005 high blood pressure ??? Hypothyroidism 2001 on meds prior to ??? Idiopathic urticaria - by history 06/04/2013 ??? Myopia 11/04/2010 ??? Myopia with astigmatism 11/21/2011 ??? Obesity BMI 44 mg/kg2 ??? Osteoarthritis 2011 knee arthritis ??? Pruritus 09/20/2012 Generalized pruritus for the last year. Involves entire body. Stable in the last year. Associated with hives on arms and legs 1-2 times per week. Hives last < 1hour. No associated scars or bruises.No association with cold temperatures, heat, sunlight or pressure. History of allergy to sulfa ( hives and difficulty breathing) and latex ( hives). One episode of angioedema of the lip about two months ago. Lasted about one hour. She was on lisinopril about two weeks prior to the swelling episodes. Two days ago had swelling of the corner of her lip and it lasted less than 5 minutes. No difficulty breathing or SOB. Tried Kari, zyrtec and Claritin without any change in the pruritus. No improvementwith oatmeal baths. No new meds. No new foods in diet. She takes Aleve most days of the week for osteoarthritis of the knee. Takes ibuprofen less than once monthly. No change in soaps, moisturizers or detergents. She uses dryer sheets. No insect bites/stings. No pets currently. Had dog and cat u ??? Right knee pain 08/30/2011 ??? Shoulder impingement syndrome 09/03/2010 ??? Skin disorder 1984 acne ??? Type 2 diabetes mellitus 11/04/2010 ??? Urinary disorder 2004 urinary incontinence with stress...gall stones Active Orders Diet Carb Control diet 60/60/75 CHO counting level 2 Frequency: Effective Now Number of Occurrences: Until Specified Admit Weight: 123.33 kg Estimated body mass index is 40.15 kg/(m^2) as calculated from the following: Height as of this encounter: 175.3 cm (5' 9). Weight as of this encounter: 123.3 kg (271 lb 14.4 oz). [place] Body Weight (IBW): [place] body weight: 66.2 kg (145 lb 15.1 oz) Adjusted ideal body weight: 89.1 kg (196 lb 5.2 oz) Estimated needs: Calories: 1800 Protein: 100 grams Today's medications: 32 Lantus BID, Lispro 1:5 ratio Lab Results Component Value Date NA 138 09/29/2016 K 3.6 09/29/2016 CL 98 09/29/2016 CO2 24 09/29/2016 BUN 13 06/07/2012 CREATININE 0.90 08/19/2016 GLUCOSE 94 03/24/2011 CALCIUM 9.0 06/07/2012 AST 44 (H) 06/07/2012 ALT 34 (H) 06/07/2012 ALKPHOS 68 06/07/2012 BILITOT 0.5 06/07/2012 BILIDIR 0.1 06/07/2012 TRIG 199 (H) 06/07/2012 Last Bowel Movement: 09/29/16 Assessment: Pt seen for diabetic diet education as improved glycemic control is needed for healing; last A1C 11.4. Pt is followed by a dietitian in [facility] and has had some wt loss by using smaller plates, etc however she has difficulty with controlling portions. She can accurately does insulin w/ known CHO amounts but admits to having difficulty measuring portions and keeping on track. Diet hx does reflect 3 meals & 3 snacks daily. Pt has not been taking snack associated insulin bellhop captain and was eating snacks up to 30 grams CHO .Importance of snack associated insulin emphasized if snacks are > 5 grams CHO. Pt verbalized good understanding. She has an appt in the Endo clinic in November; follow up w/ RD CDE in clinic encouraged. I was able to reach patient's provider,Balta Horner APRN, regarding above recommendations. [place] Beeper #: [id number] Plan of Care - Trisha Franco RN - 09/30/2016 3:21 AM EDT Problem: Patient Care Overview Goal: Plan of Care Review Outcome: Ongoing (Interventions Implemented as Appropriate) 09/30/16308 Coping/Psychosocial Plan Of Care Reviewed With patient Plan of Care Review Progress progress toward functional goals as expected OUTCOME EVALUATION NOTE: OUTCOME SUMMARY: Evita rested between care. Her pain ranged 5-6/10, administered PRN naproxen (home med per pt) withsome effect. Denied need for other PRN pain medications. Occasionally bradycardic. Tolerating CHO diet, no c/o nausea. BG high, MD aware. Insulin correction x1. Adequate UOP, passing flatus and BM. Independent in room. PLAN MOVING FORWARD: Monitor BG and correct with insulin. Manage pain. Encourage ambulation. INDIVIDUALIZED FALL PREVENTION INTERVENTIONS: Medium fall risk Patient-specific fall risk factors per assessment: [current deficits]: Patient has 2 or more active diagnoses, recent procedure, and pain. Assistance [level of assistance required for transfers and ambulation]: Independent Supervision [direct monitoring required during toileting and ADLs]: Independent Surveillance [continuous indirect monitoring]: Hourly rounding, observation by staff, NKE at bedside. Environmental modifications (reduce clutter, lighting adjusted for safety, IV tubing and cords are free from the floor), glasses at bedside, nonskid shoes/slippers when out of bed, bed in low position, upper position siderails raised x2, wheels locked, call light in reach, ID bands on Patient-specific fall prevention interventions for sensory deficits provided, if applicable: Yes, Vision, glasses on CPG GOAL OUTCOME EVALUATION: Goal: Individualization & Mutuality Outcome: Ongoing (Interventions Implemented as Appropriate) 09/30/16308 Individualization Patient Specific Interventions Glucose monitoring, pain management, encourage independence, providedpt with book to read Goal: Fall Prevention-Safe Patient Handling Outcome: Ongoing (Interventions Implemented as Appropriate) 09/29/16205809/30/16308 Musculoskeletal Interventions Muscle Strengthening -- activity/mobility promoted Activity and Safety Assistive Device -- None Daily Care Interventions Self-Care Promotion -- independence encouraged;BADL personal objects within reach Cabrera Fall Risk History of Falling 0 -- Secondary Diagnosis 15 -- Ambulatory Aids 0 -- Intravenous Therapy/Heparin/Saline Lock 20 -- Gait/Transferring 0 -- Mental Status 0 -- Score 35 -- OTHER Cabrera Fall Risk Med -- Restraint Interventions Safety Promotion/Fall Prevention nonskid shoes/slippers when out of bed;safety round/check completed-- Positioning Body Position independent -- Goal: Infection Control Outcome: Ongoing (Interventions Implemented as Appropriate) 09/29/162058 Safety Interventions Isolation Precautions standard precautions maintained Infection Prevention rest/sleep promoted Coping Strategies Supportive Measures active listening utilized;self-care encouraged Problem: Pain, Acute (Adult) Goal: Identify Related Risk Factors and Signs and Symptoms Related risk factors and signs and symptoms are identified upon initiation of Human Response Clinical Practice Guideline (CPG) Outcome: Ongoing (Interventions Implemented as Appropriate) 09/30/16 030 Pain, Acute Related Risk Factors (Acute Pain) procedure/treatment;infection Signs and Symptoms (Acute Pain) BADLs/IADLs reluctance/inability to perform;facial mask of pain/grimace;verbalization of pain descriptors;guarding/abnormal posturing/positioning Goal: Acceptable Pain Control/Comfort Level Patient will demonstrate the desired outcomes by discharge/transition of care. Outcome: Ongoing (Interventions Implemented as Appropriate) 09/30/16308 Pain, Acute (Adult) Acceptable Pain Control/Comfort Level making progress toward outcome Plan of Care - Renee Thomas RN - 09/29/2016 7:01 PM EDT Problem: Patient Care Overview Goal: Plan of Care Review Outcome: Ongoing (Interventions Implemented as Appropriate) 09/29/16 696 Coping/Psychosocial Plan Of Care Reviewed With patient Plan of Care Review Progress improving OUTCOME EVALUATION NOTE: OUTCOME SUMMARY: Pt reported pain in her labia that she declined medication for. Pt did received 5 mg oxycodone priorto packing dot site on labia. Pt labia draining small amount of fluid, pt cleaning in bathroom.Pt OOB to bathroom throughout the day. Blood sugar's managed as ordered in [facility]. Pt tolerating regular diet well. PLAN MOVING FORWARD: Monitor pain, encourage OOB and ambulation, monitor blood sugars, monitor wound INDIVIDUALIZED FALL PREVENTION INTERVENTIONS: Med Fall Risk Patient-specific fall risk factors per assessment: [current deficits]: 41 yo with PIV, 2 or more active diagnosis Assistance [level of assistance required for transfers and ambulation]: SBA Supervision [direct monitoring required during toileting and ADLs]: eyes on Surveillance [continuous indirect monitoring]: Nurse knowledge exchange, purposeful rounding, environmental modifications (waste basket is out of the path and the IV tubing and cords are free from the floor), fall reduction program in place, lighting adjusted for task, bed in low position, wheels pilo d, side rails up (x2), nonskid socks worn OOB, no restraints, call light is within reach at all times Patient-specific fall prevention interventions for sensory deficits provided, if applicable: [X] N/A CPG GOAL OUTCOME EVALUATION: Goal: Individualization & Mutuality Outcome: Ongoing (Interventions Implemented as Appropriate) 09/29/16 1852 Individualization Patient Specific Preferences Pt would like cross word puzzles Patient Specific Interventions glucose monitoring and teaching Goal: Fall Prevention-Safe Patient Handling Outcome: Ongoing (Interventions Implemented as Appropriate) 09/29/16 0830 Cabrera Fall Risk History of Falling 0 Secondary Diagnosis 15 Ambulatory Aids 0 Intravenous Therapy/Heparin/Saline Lock 20 Gait/Transferring 0 Mental Status 0 Score 35 OTHER Cabrera Fall Risk Med Restraint Interventions Safety Promotion/Fall Prevention activity supervised;fall prevention program maintained;nonskid shoes/slippers when out of bed Positioning Body Position independent Goal: Infection Control Outcome: Ongoing (Interventions Implemented as Appropriate) 09/29/16 0830 Safety Interventions Isolation Precautions standard precautions maintained Infection Prevention environmental surveillance performed;rest/sleep promoted Coping Strategies Supportive Measures active listening utilized;decision-making supported;goal setting facilitated;positive reinforcement provided;self-care encouraged;relaxation techniques promoted;verbalization of feelings encouraged Initial Assessments - Maria Dolores Melendez RN - 09/29/2016 2:16 PM EDT Office of Care Management Initial Assessment Service: Gynecology Maria Dolores Melendez RN Pager: [phone] Maria Dolores Melendez RN discussed patient with provider team and in multidisciplinary discharge planning rounds. Review record and interviewed patient. Introduced/reviewed role; services accepted. Source of Information: Patient and medical record Reason for Hospitalization: vulvar abscess Past Medical History: Diagnosis Date ??? Anxiety disorder ??? Arthritis of knee, right 05/24/2011 X ray 05/24/11: some osteophytes, some narrowing; naproxen; PT; weight reduction recommended; may need knee replacement in future ??? Astigmatism 11/04/2010 ??? Chronic urticaria 09/21/2012 ??? Circulatory disease 2009 varicose veins ??? Depression ??? Diabetes mellitus type 2 in obese stopped Metformin 05/2009 ??? Elevated blood pressure 09/20/2012 History of hypertension. Lisinopril stopped because of angioedema. ??? Eye problems 2008 stigmatism ??? GERD (gastroesophageal reflux disease) ??? Headache 1999 migraine and regular headaches ??? Hyperlipidemia ??? Hypertensive disease 2005 high blood pressure ??? Hypothyroidism 2001 on meds prior to ??? Idiopathic urticaria - by history 06/04/2013 ??? Myopia 11/04/2010 ??? Myopia with astigmatism 11/21/2011 ??? Obesity BMI 44 mg/kg2 ??? Osteoarthritis 2011 knee arthritis ??? Pruritus 09/20/2012 Generalized pruritus for the last year. Involves entire body. Stable in the last year. Associated with hives on arms and legs 1-2 times per week. Hives last < 1hour. No associated scars or bruises.No association with cold temperatures, heat, sunlight or pressure. History of allergy to sulfa ( hives and difficulty breathing) and latex ( hives). One episode of angioedema of the lip about two months ago. Lasted about one hour. She was on lisinopril about two weeks prior to the swelling episodes. Two days ago had swelling of the corner of her lip and it lasted less than 5 minutes. No difficulty breathing or SOB. Tried Kari, zyrtec and Claritin without any change in the pruritus. No improvementwith oatmeal baths. No new meds. No new foods in diet. She takes Aleve most days of the week for osteoarthritis of the knee. Takes ibuprofen less than once monthly. No change in soaps, moisturizers or detergents. She uses dryer sheets. No insect bites/stings. No pets currently. Had dog and cat u ??? Right knee pain 08/30/2011 ??? Shoulder impingement syndrome 09/03/2010 ??? Skin disorder 1984 acne ??? Type 2 diabetes mellitus 11/04/2010 ??? Urinary disorder 2005 urinary incontinence with stress...gall stones Hospitalizations Within the Past 30 Days: None Anticipated Length Of Stay (If known): 2-3 days Current Decision-Making Capacity: Independent, patient is cognitively intact. Advance Care Planning: <no information> Current Coping/Education/Information Needs: Patient is calm when discussing plan of care, understanding of current status, and satisfied with care at this time. Current Functional Ability: SBA Functional Status Prior to Admission: Patient is independent at home Home Environment: Patient lives at home with 6 year old son Social & Family Supports/Community Resources: Parents, local friends Behavioral Health History: Depression/anxiety Substance Use/Abuse: NA Other Pertinent/Service Specific Information: None Health/Prescription Coverage: Primary Insurance: Medicaid [place] Secondary Insurance: NA Prescription Coverage: Yes Preferred Pharmacy: [address] [id number] Other: NA Primary Care Provider: Marcia Dickens APRN [phone] Patient/Caregiver Goals of Treatment: Pain control, discharge home Potential Needs for Transition of Care: Rehab/SNF: NA Home Health: NA DME: Patient uses a CPAP at home Dialysis: NA Community Resources: NA Transportation: Patient will transport herself home at discharge via private vehicle. Other: NA Anticipated Barriers to Discharge/Special Considerations: None Plan: CM will continue to monitor progress, follow for continuity of care, and assist with dischargeplanning while hospitalized. A member of the Care Management team will continue to monitor progress, follow for continuity of care and assist with transition of care planning. Maria Dolores Melendez RN Pager: [phone] Consult Note - Savannah Interiano DO - 09/29/2016 8:40 AM EDT DIABETES MANAGEMENT CONSULT NOTE [facility] Name: Evita Singleton Date: 09/29/16 Room: [address] [place] [address] Date of Consultation: 09/29/2016 Consult Requested by: General team Reason for Consultation: Evita Singleton is a 41 y.o. female with PMH significant for type II diabetesmellitus, hypothyroidism, hypertension, depression, GERD, HALEY who was admitted on 09/28/2016 currently being treated for vulvar abscess. We are being consulted to assist with diabetes management and to provide a review of long lines operator diabetes care. Diabetes History: Evita Singleton was diagnosed with gestation diabetes in 2010, she was later diagnosed with type II Diabetes Mellitus in 2013. She was last seen in the endocrinology clinic 08/19/2016. Current outpatient diabetes regimen: Medications: Not taking Toujeo but still taking Lantus 32 units in AM and 32 units PM, Novolog 1:5 ratio also has a sliding scale on her phone, Victoza 1.8mg daily, Metformin 1000mg BID Monitoring is done 3 times a day, Fasting 147-150 only several times, fasting blood glucose 200-300,mid-day:200-250, nightly 300s. Most recent HA1c was11.4% (08/19/2016) Typical diet is: 3 meals and 1-2 snacks a day- carrots, celery, cheese sticks, crackers Breakfast- [place], egg, cereal Lunch- soup and sandwich Supper- meatloaf, vegetable, salad Typical exercise regimen is swimming, five times weekly Trouble with hypoglycemia Has never had a low blood sugar Diabetes Complications Status: Eyes: Diabetic retinopathy present, not treated at this point Kidneys: None known Feet: No specific complaints but notable small lesions over her ankles present Sensory: Numbness and tinlging on her legs Autonomic: None known Cardiac: LDL 119, taking Lipitor daily Current Hospital Diabetes Care: Medications: Lantus 32 units BID Humalog 1-20 units TID with meals Correction factor Humalog 2-12 units Metformin 1000mg BID Monitoring: q 4 hrs Diet: TID ROS: (+) for continued weight loss, blurred vision with hyperglycemia (BG >500), polydipsia, polyphagia and polydipsia, infection/abcess present on vulva (being treated with Ceftrixaone IV), was previously nauseated but that is improving (-) for Constitutional: No weight gain Endocrine: No increased thirst or urination Eyes: No recent vision change ENT: No dysphagia, dental issues Cardiovascular: No chest pain Respiratory: No wheezing , shortness of breath GI: No nausea, vomiting, diarrhea, constipation : No frequent urinary tract infections, see above for current complaint Neurological: No weakness or numbness Skin/Feet: Some numbness and tingling present in feet PMH Past Medical History: Diagnosis Date ??? Anxiety disorder ??? Arthritis of knee, right 05/24/2011 X ray 05/24/11: some osteophytes, some narrowing; naproxen; PT; weight reduction recommended; may need knee replacement in future ??? Astigmatism 11/04/2010 ??? Chronic urticaria 09/21/2012 ??? Circulatory disease 2008 varicose veins ??? Depression ??? Diabetes mellitus type 2 in obese stopped Metformin 05/2009 ??? Elevated blood pressure 09/20/2012 History of hypertension. Lisinopril stopped because of angioedema. ??? Eye problems 2008 stigmatism ??? GERD (gastroesophageal reflux disease) ??? Headache 2000 migraine and regular headaches ??? Hyperlipidemia ??? Hypertensive disease 2005 high blood pressure ??? Hypothyroidism 2001 on meds prior to ??? Idiopathic urticaria - by history 06/04/2013 ??? Myopia 11/04/2010 ??? Myopia with astigmatism 11/21/2011 ??? Obesity BMI 44 mg/kg2 ??? Osteoarthritis 2011 knee arthritis ??? Pruritus 09/20/2012 Generalized pruritus for the last year. Involves entire body. Stable in the last year. Associated with hives on arms and legs 1-2 times per week. Hives last < 1hour. No associated scars or bruises.No association with cold temperatures, heat, sunlight or pressure. History of allergy to sulfa ( hives and difficulty breathing) and latex ( hives). One episode of angioedema of the lip about two months ago. Lasted about one hour. She was on lisinopril about two weeks prior to the swelling episodes. Two days ago had swelling of the corner of her lip and it lasted less than 5 minutes. No difficulty breathing or SOB. Tried Kari, zyrtec and Claritin without any change in the pruritus. No improvementwith oatmeal baths. No new meds. No new foods in diet. She takes Aleve most days of the week for osteoarthritis of the knee. Takes ibuprofen less than once monthly. No change in soaps, moisturizers or detergents. She uses dryer sheets. No insect bites/stings. No pets currently. Had dog and cat u ??? Right knee pain 08/30/2011 ??? Shoulder impingement syndrome 09/03/2010 ??? Skin disorder 1984 acne ??? Type 2 diabetes mellitus 11/04/2010 ??? Urinary disorder 2005 urinary incontinence with stress...gall stones Current Hospital Medications: ??? atorvastatin 40 mg Oral Daily ??? FLUoxetine 20 mg Oral Daily ??? levothyroxine 200 mcg Oral QAM ??? sodium chloride 0.9 % 5 mL Intravenous BID ??? insulin lispro 1-20 Units Subcutaneous TID WC ??? insulin lispro 3-12 Units Subcutaneous TID AC ??? insulin glargine 32 Units Subcutaneous BID ??? clindamycin 900 mg Intravenous Q8H ??? pantoprazole 40 mg Oral Daily Or ??? pantoprazole 40 mg Intravenous Daily ??? lisinopril 5 mg Oral Daily ??? norethindrone 2.5 mg Oral Daily ??? cefTRIAXone 2 g Intravenous Q24H ??? metFORMIN 1,000 mg Oral BID WC Infusions: PRN: dextrose 50% OR glucagon (human recombinant), sodium chloride 0.9 %, lidocaine, ondansetron OR ondansetron, acetaminophen, naproxen Allergy: Allergies Allergen Reactions ??? Latex Anaphylaxis ??? Sulfa (Sulfonamide Antibiotics) Anaphylaxis and Hives Social history: Social History Substance Use Topics ??? Smoking status: Former Smoker Packs/day: 2.00 Years: 10.00 Types: Cigarettes Quit date: 09/04/2010 ??? Smokeless tobacco: Never Used Comment: quits during ??? Alcohol use No Comment: n/a Family history: Family History Problem Relation Age of Onset [...] ??? High Blood Pressure Maternal Uncle Physical Exam: BP 139/70 (BP Location (NBP): Left arm) Pulse 59 Temp 36.4 ??C (97.5 ??F) (Oral) Resp 17 Ht 175.3 cm (5' 9) Wt (!) 123.3 kg (271 lb 14.4 oz) SpO2 97% BMI 40.15 kg/m2 General appearance - alert, well appearing, and in no distress Chest - clear to auscultation, no wheezes, rales or rhonchi, symmetric air entry Heart - normal rate, regular rhythm, normal S1, S2, no murmurs, rubs, clicks or gallops Abdomen - soft, nontender, nondistended, no masses or organomegaly Ext- no edema or cyanosis Skin- tanned, small scabbing lesions over the ankles Labs: Lab Results Component Value Date Sodium 138 09/29/2016 Potassium 3.6 09/29/2016 Chloride 98 09/29/2016 CO2 24 09/29/2016 No results for input(s): GLUCOSE in the last 168 hours. Assessment: Patient is a 41 y.o. years old female with PMH significant for DM (Last A1C of 11.4%) who was admitted on 09/28/2016 for treatment of a valvular abscess. Diabetes is suboptimally controlled. Currently with variability of blood glucose levels while hospitalized requiring adjustment of insulin regimen and DM medications. Plan: - Recommend to discontinue Metformin and use Insulin while in hospital, especially if considering giving contrast for imaging and in the setting of current infection - Monitor throughout the afternoon to see how she responds to current Insulin regimen (with carbohydrate counting and smaller portions, she may actually respond to this dosing - If needed will increase Insulin dosing after lunch depending on her response FDC diabetes care: Medications - Outpatient treatment regimen recommendations pending based on the hospital course. Monitoring - continue BG tid ac & hs Diet - low fat/low carb diet Exercise - weight-bearing exercise 30 min/day, as tolerated Thank you for allowing us to provide care for your patient Savannah Hood Jaydon, Endocrinology, Diabetes and Metabolism Fellow 09/29/2016 8:41 AM Associated attestation - Liliana Berkowitz MD - 09/29/2016 10:28 PM EDT I saw this patient with Dr. Interiano. I reviewed the moran portions of the history and physical exam, and reviewed pertinent lab data. I answered all patient questions. I was involved in all medical decision making and agree with this plan. LILIANA BERKOWITZ MD Director Dancepopcorn machine operator Section of Endocrinology [facility] documented in this encounter Plan of Treatment Not on filedocumented as of this encounter Procedures Procedure Name Priority Date/Time Associated Comments Diagnosis POCT GLUCOSE Routine 09/30/2016 3:36 PM Results f or this EDT procedure are i n the results section. POCT GLUCOSE Routine 09/30/2016 11:00 Results for this AM EDT procedure are i n the results section. POCT GLUCOSE Routine 09/30/2016 9:03 AM Results f or this EDT procedure are i n the results section. POCT GLUCOSE Routine 09/30/2016 7:01 AM Results f or this EDT procedure are i n the results section. POCT GLUCOSE Routine 09/30/2016 4:00 AM Results f or this EDT procedure are i n the results section. POCT GLUCOSE Routine 09/29/2016 11:33 Results for this PM EDT procedure are i n the results section. POCT GLUCOSE Routine 09/29/2016 8:32 PM Results f or this EDT procedure are i n the results section. POCT GLUCOSE Routine 09/29/2016 4:16 PM Results f or this EDT procedure are i n the results section. POCT GLUCOSE Routine 09/29/2016 11:29 Results for this AM EDT procedure are i n the results section. POCT GLUCOSE Routine 09/29/2016 9:11 AM Results f or this EDT procedure are i n the results section. HEMOGRAM Routine 09/29/2016 7:43 AM Results f or this EDT procedure are i n the results section. DIFFERENTIAL, Routine 09/29/2016 7:43 AM Results for this AUTOMATED EDT procedure are i n the results section. CBC (WITH DIFF) Routine 09/29/2016 7:43 AM EDT ELECTROLYTES PANEL Routine 09/29/2016 7:43 AM Res ults for this EDT procedure are i n the results section. POCT GLUCOSE Routine 09/29/2016 7:06 AM Results f or this EDT procedure are i n the results section. POCT GLUCOSE Routine 09/29/2016 5:04 AM Results f or this EDT procedure are i n the results section. POCT GLUCOSE Routine 09/29/2016 3:49 AM Results f or this EDT procedure are i n the results section. BODY FLUID CULTURE, Routine 09/29/2016 1:01 AM AEROBIC & ANAEROBIC EDT BODY FLUID CULTURE, Routine 09/29/2016 1:01 AM Re sults for this AEROBIC EDT procedure are i n the results section. POCT GLUCOSE Routine 09/28/2016 11:02 Results for this PM EDT procedure are i n the results section. documented in this encounter Results POCT Glucose (09/30/2016 3:36 PM EDT) athologist Signature POC Glucose 170 65 - 199 [facility] Comment: Supplemental ranges: <140 mg/dL before meals <180 mg/dL all other times of the day Specimen Anatomical Collection Method Collection Time Receive d Time (Source) Location / / Volume Laterality Blood specimen 09/30/2016 3:36 PM 017 3:36 (specimen) EDT PM EDT Sanjana Ovalle MD POINT OF CARE TEST ORDERABLE S Performing Organization Address City/State/ZIP [place] [address] (ABNORMAL) POCT Glucose (09/30/2016 11:00 AM EDT) athologist Signature POC Glucose 230 (H) 65 - 199 [facility] Comment: Supplemental ranges: <140 mg/dL before meals <180 mg/dL all other times of the day Specimen Anatomical Collection Method Collection Time Receive d Time (Source) Location / / Volume Laterality Blood specimen 09/30/2016 11:00 7 (specimen) AM EDT 11:00 AM EDT Sanjana Ovalle MD POINT OF CARE TEST ORDERABLE S Performing Organization Address City/State/[place] [address] (ABNORMAL) POCT Glucose (09/30/2016 9:03 AM EDT) P athologist Signature POC Glucose 295 (H) 65 - 199 [place] mg/dL [facility] Comment: Supplemental ranges: <140 mg/dL before meals <180 mg/dL all other times of the day Specimen Anatomical Collection Method Collection Time Receive d Time (Source) Location / / Volume Laterality Blood specimen 09/30/2016 9:03 AM 017 9:03 (specimen) EDT AM EDT Sanjana Ovalle MD POINT OF CARE TEST ORDERABLE S Performing Organization Address City/State/[place] [address] (ABNORMAL) POCT Glucose (09/30/2016 7:01 AM EDT) P athologist Signature POC Glucose 259 (H) 65 - 199 [facility] mg/dL [facility] Comment: Supplemental ranges: <140 mg/dL before meals <180 mg/dL all other times of the day Specimen Anatomical Collection Method Collection Time Receive d Time (Source) Location / / Volume Laterality Blood specimen 09/30/2016 7:01 AM 017 7:01 (specimen) EDT AM EDT Sanjana Ovalle MD POINT OF CARE TEST ORDERABLE S Performing Organization Address City/State/[place] [address] (ABNORMAL) POCT Glucose (09/30/2016 4:00 AM EDT) P athologist Signature POC Glucose 221 (H) 65 - 199 [facility] Comment: Supplemental ranges: <140 mg/dL before meals <180 mg/dL all other times of the day Specimen Anatomical Collection Method Collection Time Receive d Time (Source) Location / / Volume Laterality Blood specimen 09/30/2016 4:00 AM 017 4:00 (specimen) EDT AM EDT Sanjana Ovalle MD POINT OF CARE TEST ORDERABLE S Performing Organization Address City/State/[place] [address] (ABNORMAL) POCT Glucose (09/29/2016 11:33 PM EDT) P athologist Signature POC Glucose 223 (H) 65 - 199 [place] mg/dL [facility] Comment: Supplemental ranges: <140 mg/dL before meals <180 mg/dL all other times of the day Specimen Anatomical Collection Method Collection Time Receive d Time (Source) Location / / Volume Laterality Blood specimen 09/29/2016 11:33 7 (specimen) PM EDT 11:33 PM EDT Sanjana Ovalle MD POINT OF CARE TEST ORDERABLE S Performing Organization Address City/State/[place] [address] POCT Glucose (09/29/2016 8:32 PM EDT) athologist Signature POC Glucose 185 65 - 199 [place] mg/dL [facility] Comment: Supplemental ranges: <140 mg/dL before meals <180 mg/dL all other times of the day Specimen Anatomical Collection Method Collection Time Receive d Time (Source) Location / / Volume Laterality Blood specimen 09/29/2016 8:32 PM 017 8:32 (specimen) EDT PM EDT Sanjana Ovalle MD POINT OF CARE TEST ORDERABLE S Performing Organization Address City/State/[place] [address] POCT Glucose (09/29/2016 4:16 PM EDT) P athologist Signature POC Glucose 179 65 - 199 [place] mg/dL [facility] Comment: Supplemental ranges: <140 mg/dL before meals <180 mg/dL all other times of the day Specimen Anatomical Collection Method Collection Time Receive d Time (Source) Location / / Volume Laterality Blood specimen 09/29/2016 4:16 PM 017 4:16 (specimen) EDT PM EDT Sanjana Ovalle MD POINT OF CARE TEST ORDERABLE S Performing Organization Address City/State/[place] [address] POCT Glucose (09/29/2016 11:29 AM EDT) athologist Signature POC Glucose 168 65 - 199 [facility] mg/dL [facility] Comment: Supplemental ranges: <140 mg/dL before meals <180 mg/dL all other times of the day Specimen Anatomical Collection Method Collection Time Receive d Time (Source) Location / / Volume Laterality Blood specimen 09/29/2016 11:29 7 (specimen) AM EDT 11:29 AM EDT Sanjana Ovalle MD POINT OF CARE TEST ORDERABLE S Performing Organization Address City/State/[place] [address] (ABNORMAL) POCT Glucose (09/29/2016 9:11 AM EDT) athologist Signature POC Glucose 327 (H) 65 - 199 [facility] mg/dL [facility] Comment: Supplemental ranges: <140 mg/dL before meals <180 mg/dL all other times of the day Specimen Anatomical Collection Method Collection Time Receive d Time (Source) Location / / Volume Laterality Blood specimen 09/29/2016 9:11 AM 017 9:11 (specimen) EDT AM EDT Sanjana Ovalle MD POINT OF CARE TEST ORDERABLE S Performing Organization Address City/State/ZIP Code Phon e Number [address] Differential, Automated (09/29/2016 7:43 AM EDT) athologist Signature Neutrophils % 53.6 % [facility] Neutr Abs (ANC) 2.93 1.70 - [facility] 6.10 [facility] x10(3)/[facility] LABORATORY Lymphocytes % 36.9 % [facility] Lymphocytes Abs 2.0 0.9 - 3.2 [facility] x10(3)/[facility] LABORATORY Monocytes % 6.2 % [facility] Monocyte Abs 0.3 0.3 - 0.9 [facility] x10(3)/[facility] LABORATORY Eosinophils % 2.7 % [facility] Eosinophils Abs 0.2 0.0 - 0.4 [facility] x10(3)/[facility] LABORATORY Basophils % 0.2 % [facility] Basophils Abs 0.0 0.0 - 0.1 [facility] x10(3)/[facility] LABORATORY Immature Gran % 0.40 % [facility] Comment: Immature granulocytes(IG's)percentage an d absolute count will include metamyelocytes, myelocytes, and promyelo cytes. Blood smears from CBCs yielding IG's will be scanned manually for concor dance. If this scan disagrees with the automated IG or if promyelocytes are not ed, a manual differential will be performed. Kayleen Gran Abs 0.02 0.00 - 0.04 x10(3)/[facility] Specimen Anatomical Collection Method Collection Time Receive d Time (Source) Location / / Volume Laterality Blood specimen 09/29/2016 7:43 AM 017 8:03 (specimen) EDT AM EDT Resulting Agency Comment Spec In Lab Sanjana Ovalle MD HEMATOLOGY ORDERABLES Performing Organization Address City/State/ZIP [place] [address] Hemogram (09/29/2016 7:43 AM EDT) P athologist Signature WBC 5.5 4.0 - 9.5 [facility] x10(3)/[facility] LABORATORY RBC 4.01 4.00 - [facility] 5.21 [facility] x10(6)/[facility] LABORATORY Hemoglobin 12.2 11.7 - [facility] 15.[facility] gm/dL [facility] LABORATORY Hematocrit 36.3 35.7 - [facility] 45.8 % [facility] LABORATORY MCV 90.5 82.6 - [facility] 94.4 fL [facility] LABORATORY MCH 30.4 27.1 - [facility] 32.0 pg [facility] LAB[facility]ATORY MCHC 33.6 31.7 - [facility] 35.0 gm/dL [facility] LABOR[facility]ORY Platelets 232 145 - 357 [facility] x10(3)/[facility] LABORATORY RDWSD 40.2 37.0 - [facility] 46.0 [facility] LABORATORY RDWCV 12.2 11.5 - [facility] 14.1 % [facility] LABORATORY MPV 11.6 7.6 - 12.9 [facility] LABORATORY nRBC % Auto 0.0 % [facility] LABORATORY nRBC Abs Auto 0.000 0.000 - [facility] 0.000 [facility] x10(3)/[facility] LABORATORY Specimen Anatomical Collection Method Collection Time Receive d Time (Source) Location / / Volume Laterality Blood specimen 09/29/2016 7:43 AM 017 8:03 (specimen) EDT AM EDT Resulting Agency Comment Spec In Lab Sanjana Ovalle MD HEMATOLOGY ORDERABLES Performing Organization Address City/State/ZIP [place] [address] (ABNORMAL) Electrolytes panel (09/29/2016 7:43 AM EDT) P athologist Signature Sodium 138 135 - 145 [facility] mmol/L [facility] LABORATORY Potassium 3.6 3.5 - 5.0 [facility] mmol/L [facility] LABORATORY Comment: Please note: ??Patients with WBC >100,00 0 may have falsely elevated Potassium levels. ??For accurate Potassium quantif ication in these patients send serum separator tube (gold top) for subsequent determinations. ??Contact the Clinical Chemistry Laboratory if there are any qu estions. Chloride 98 98 - 107 mmol/L [facility] LABORATORY CO2 24 22 - 31 mmol/L [facility] LABORATORY Anion Gap 16 (H) 5 - 15 mmol/L [facility] LABORATORY Specimen Anatomical Collection Method Collection Time Receive d Time (Source) Location / / Volume Laterality Blood specimen 09/29/2016 7:43 AM 017 8:02 (specimen) EDT AM EDT Resulting Agency Comment Spec In Lab Sanjana Ovalle MD CHEMISTRY ORDERABLES Performing Organization Address City/[facility]/[place] [address] (ABNORMAL) POCT Glucose (09/29/2016 7:06 AM EDT) athologist Signature POC Glucose 260 (H) 65 - 199 SINDY HUEY mg/dL [facility] LABORATORY Comment: Supplemental ranges: <140 mg/dL before meals <180 mg/dL all other times of the day Specimen Anatomical Collection Method Collection Time Receive d Time (Source) Location / / Volume Laterality Blood specimen 09/29/2016 7:06 AM 017 7:06 (specimen) EDT AM EDT Sanjana Ovalle MD POINT OF CARE TEST ORDERABLE S Performing Organization Address City/[facility]/[place] [address] (ABNORMAL) POCT Glucose (09/29/2016 5:04 AM EDT) athologist Signature POC Glucose 278 (H) 65 - 199 S[place]UEY mg/dL [facility] LABORATORY Comment: Supplemental ranges: <140 mg/dL before meals <180 mg/dL all other times of the day Specimen Anatomical Collection Method Collection Time Receive d Time (Source) Location / / Volume Laterality Blood specimen 09/29/2016 5:04 AM 017 5:04 (specimen) EDT AM EDT Sanjana Ovalle MD POINT OF CARE TEST ORDERABLE S Performing Organization Address City/[facility]/[place] [address] (ABNORMAL) POCT Glucose (09/29/2016 3:49 AM EDT) athologist Signature POC Glucose 300 (H) 65 - 199 [facility] HUEY mg/dL [facility] LABORATORY Comment: Supplemental ranges: <140 mg/dL before meals <180 mg/dL all other times of the day Specimen Anatomical Collection Method Collection Time Receive d Time (Source) Location / / Volume Laterality Blood specimen 09/29/2016 3:49 AM 07/26/2 017 3:49 (specimen) EDT AM EDT Sanjana Ovalle MD POINT OF CARE TEST ORDERABLE S Performing Organization Address City/[facility]/ZIP Code Phon e Number [address] (ABNORMAL) Body fluid culture (09/29/2016 1:01 AM EDT) Patholo gist Method Time Signature Body Fluid No growth [facility] Culture () [facility] LABORATORY Gram Stain Few White Blood Cells seen [place] Moderate Gram Positive Cocci seen [facility] LABORATORY Organism Gram [facility] Positive [facility] Cocci ([facility] LABORATORY Specimen Anatomical Collection Method Collection Time Receive d Time (Source) Location / / Volume Laterality Fluid specimen 09/29/2016 1:01 AM 017 7:21 (specimen) EDT AM EDT Comment: RED TOP SWAB Resulting Agency Comment Spec In Lab Sanjana Ovalle MD MICROBIOLOGY - GENERAL ORDER BRANDYN Performing Organization Address City/[facility]/[place] [address] (ABNORMAL) POCT Glucose (09/28/2016 11:02 PM EDT) P athologist Signature POC Glucose 235 (H) 65 - 199 [facility]ORY Comment: Supplemental ranges: <140 mg/dL before meals <180 mg/dL all other times of the day Specimen Anatomical Collection Method Collection Time Receive d Time (Source) Location / / Volume Laterality Blood specimen 09/28/2016 11:02 7 (specimen) PM EDT 11:02 PM EDT Sanjana Ovalle MD POINT OF CARE TEST ORDERABLE S Performing Organization Address City/[facility]/[place] [address] documented in this encounter Visit Diagnoses Diagnosis Vulvar abscess - Primary Other abscess of vulva Diabetes mellitus type 2 in obese Type II or unspecified type diabetes jose litus without mention of complication, not stated as uncontrolled Hypertension Unspecified essential hypertension BMI 40.0-44.9, adult Body Mass Index 40.0-44.9, adult Hypothyroidism Unspecified hypothyroidism documented in this encounter Admitting Diagnoses Diagnosis Vulvar abscess Other abscess of vulva documented in this encounter Administered Medications Inactive Administered Medications - up to 3 most recent administrations Medication Order MAR Action Action Date Dose Rate Site atorvastatin (LIPITOR) tablet 40 mg Given 09/30/2016 9:09 AM EDT 40 mg 40 mg, Oral, DAILY, First dose on Tue09/29/16 at 0900, Until Discontinued, Routine Given 09/29/2016 8:28 AM EDT 40 mg cefTRIAXone (ROCEPHIN) 2g in dextrose 5% Given 09/29/2016 8: 28 AM EDT 2 g 100 mL/hr 50mL 2 g, Intravenous, EVERY 24 HOURS, First dose on Tue09/29/16 at 0900, Until Discontinued, Administer over 30 Minutes, Indication for (Active or Suspected): Skin/Skin Structure clindamycin (CLEOCIN) 900mg in Given 09/29/2016 11:49 AM EDT 900 mg 100 mL/hr dextrose 5% 50mL 900 mg, Intravenous, EVERY 8 HOURS, 2 doses, First dose on Tue09/29/16 at 0330, Last dose on Tue09/29/16 at 1130, Administer over 30 Minutes, Give over 30-60 minutes. Do not exceed 30mg/minute., Recovery (Recovery-Hospital Unit), Indication for (Active or Suspected): Skin/Skin Structure Given 09/29/2016 5:14 AM EDT 900 mg 100 mL/hr dextrose 50% injection 25-50 mL 25-50 mL (12.5-25 g), Intravenous, EVERY 1 HOUR PRN, S tarting on Tue09/29/16 at 0302, Until Chikis 09/30/16 at 1820, Low blo od sugar, For BG 50-70: 120 mL Juice or Regular (not diet) soda OR 12.5 gram (25 mL) Dextrose 50% IV OR, if no IV access, 1 mg Glucagon IM. Recheck BG in 30 minut es. May repeat juice, dextrose or glucagon once per episode For BG less than 50: 240 mL Juice or Regular (not diet) soda OR 25 grams (50 mL) Dextrose 50% IV OR, if no IV access, 1 mg Glucagon IM. Recheck BG in 30 minutes. May repeat juice, dext kathy, or glucagon once per episode. To avoid extravasation, push Dextrose 50% SLOWLY (3 mL ov er 1 minute) in a patent, running IV, preferably a central line. For persisten t hypoglycemia, consider longer-acting treatment for the duration of the active insulin., Routine fentaNYL 50mcg/mL injection Given 09/29/2016 1:08 AM EDT 100 mcg 100 mcg, Intravenous, ONCE, 1 dose, On Tue09/29/16 at 0115, Routine FLUoxetine (PROzac) capsule 20 mg Given 09/30/2016 9:09 AM EDT 20 mg 20 mg, Oral, DAILY, First dose on Tue09/29/16 at 0900, Until Discontinued, Routine Given 09/29/2016 8:28 AM EDT 20 mg glucagon (human recombinant) injection S olR 1 mg 1 mg, Intramuscular, EVERY 1 HOUR PRN, S tarting on Tue09/29/16 at 0302, Until Chikis 09/30/16 at 1820, Low blood sugar, For BG 50-70: 120 mL Juice or Regular (not diet) soda OR 12.5 gram (25 mL) Dextrose 50% IV OR, if no IV access, 1 mg Glucagon IM. Recheck BG in 30 minutes. May repeat juice, dext kathy or glucagon once per episode For BG less than 50: 240 mL Ju ice or Regular (not diet) soda OR 25 grams (50 mL) Dextrose 50% IV OR, if no IV acc ess, 1 mg Glucagon IM. Recheck BG in 30 minutes. May repeat juice, dextrose, or glucagon once per episode. To avoid extravasation, push Dextrose 50% SLOWLY (3 mL over 1 minute) in a patent, running IV, preferably a central line. For persistent hypogl ycemia, consider longer-acting treatment for the duration of the active insulin. , Routine insulin glargine VIAL injection 32 Units Given 09/30/2016 8:14 AM EDT 32 Units 32 Units, Subcutaneous, 2 TIMES DAILY, First dose on Tue09/29/16 at 0900, Until Discontinued, Routine Given 09/29/2016 8:50 PM EDT 32 Units Given 09/29/2016 8:28 AM EDT 32 Units insulin lispro (humaLOG) VIAL injection Given 09/30/2016 1:09 PM EDT 10 Units 1-20 Units 1-20 Units, Subcutaneous, 3 TIMES DAILY WITH MEALS, First dose on Tue09/29/16 at 0800, Until Discontinued, MEAL ASSOCIATED Give 1 unit for every 5 grams carbohydrate. Hold if not eating, Routine Given 09/30/2016 8:13 AM EDT 10 Units Given 09/29/2016 6:07 PM EDT 14 Units insulin lispro (humaLOG) VIAL injection Given 09/29/2016 5:09 AM EDT 12 Units 3-12 Units 3-12 Units, Subcutaneous, EVERY 4 HOURS SCHEDULED, First dose on Tue09/29/16 at 0400, Until Discontinued, CORRECTION BOLUS Resistant to insulin obese patient or TDD (total daily dose of all insulin needed to achieve glycemic control) greater than 60 units BG 140 - 160 Give 3 units BG 161 - 200 Give 6 units BG 201 - 240 Give 9 units BG greater than 240, give 12 units and recheck BG in 2 hours. If less than 240 after two hours, give no insulin and resume prior schedule. If BG remains greater than 240, repeat 12 units (no more than three times) & call for new basal insulin orders. DO NOT hold if NPO, unless specifically told to do so., Routine insulin lispro (humaLOG) VIAL injection 3-12 Given 4:34 PM EDT 6 Units Units 3-12 Units, Subcutaneous, 3 TIMES DAILY BEFORE MEALS, First dose on Tue09/29/16 at 0730, Until Discontinued, CORRECTION BOLUS Resistant to insulin obese patient or TDD (total daily dose of all insulin needed to achieve glycemic control) greater than 60 units BG 140 - 160 Give 3 units BG 161 - 200 Give 6 units BG 201 - 240 Give 9 units BG greater than 240, give 12 units and recheck BG in 2 hours.If BG less than 240 after two hours, give no insulin and resume prior schedule. If BG remains greater than 240, repeat 12 units (no more than three times) & call for new basal insulin orders. DO NOT hold if NPO, unless specifically told to do so., Routine Given 09/29/2016 11:48 AM EDT 6 Units Given 09/29/2016 9:29 AM EDT 12 Units insulin lispro (humaLOG) VIAL injection 3-12 Given 3:48 PM EDT 6 Units Units 3-12 Units, Subcutaneous, 4 TIMES DAILY BEFORE MEALS & NIGHTLY, First dose (after last modification) on Tue09/29/16 at 2100, Until Discontinued, CORRECTION BOLUS Resistant to insulin obese patient or TDD (total daily dose of all insulin needed to achieve glycemic control) greater than 60 units BG 140 - 160 Give 3 units BG 161 - 200 Give 6 units BG 201 - 240 Give 9 units BG greater than 240, give 12 units and recheck BG in 2 hours.If BG less than 240 after two hours, give no insulin and resume prior schedule. If BG remains greater than 240, repeat 12 units (no more than three times) & call for new basal insulin orders. DO NOT hold if NPO, unless specifically told to do so., Routine Given 09/30/2016 11:09 AM EDT 9 Units Given 09/30/2016 9:11 AM EDT 12 Units levothyroxine (SYNTHROID) tablet 200 mcg Given 09/30/2016 5:30 AM EDT 200 mcg 200 mcg, Oral, EVERY MORNING, First dose on Tue09/29/16 at 0600, Until Discontinued Given 09/29/2016 5:54 AM EDT 200 mcg lisinopril (PRINIVIL;ZESTRIL) tablet 5 m g Given 09/30/2016 9:09 AM EDT 5 mg 5 mg, Oral, DAILY, First dose on Tue09/29/16 at 0900, Until Discontinued, Routine Given 09/29/2016 8:26 AM EDT 5 mg metFORMIN (GLUCOPHAGE) tablet 1,000 mg Given 09/29/2016 4:34 PM EDT 1,000 mg 1,000 mg, Oral, 2 TIMES DAILY WITH MEALS, First dose on Tue09/29/16 at 0800, Until Discontinued, Routine Given 09/29/2016 9:28 AM EDT 1,000 mg naproxen (ANAPROX) tablet 550 mg Given 09/29/2016 8:59 PM EDT 550 mg 550 mg, Oral, 2 TIMES DAILY PRN, Pain, Starting on Tue09/29/16 at 0302, Until Tue09/30/16 at 1820, take with food or milk norethindrone (AYGESTIN) tablet 2.5 mg Given 09/30/2016 9:08 AM EDT 2.5 mg 2.5 mg, Oral, DAILY, First dose on Tue09/29/16 at 0900, Until Discontinued, Routine Given 09/29/2016 8:25 AM EDT 2.5 mg ondansetron (ZOFRAN) injection 4 mg 4 mg, Intravenous, EVERY 8 HOURS PRN, St arting on Tue09/29/16 at 0302, Until Chikis 09/30/16 at 1820, Nausea, May repeat time s one in 30 minutes if ineffective. If multiple antiemetics are ordered, use ondanstron first , Recovery (Recovery-Hospital Unit) ondansetron (ZOFRAN) tablet 4 mg 4 mg, Oral, EVERY 8 HOURS PRN, Starting on Tue09/29/16 at 0302, Until Chikis 09/30/16 at 1820, Nausea, Vomiting, If multipl e antiemetics are ordered, use ondansetron first. PO Preferred. If patient unable to take PO, may give IV if ordered. May repeat times one in 45 minutes if ineffe ctive., Recovery (Recovery-Hospital Unit), Routine oxyCODONE (ROXICODONE) immediate release Given 09/29/2016 10:48 AM EDT 5 mg tablet 5 mg 5 mg, Oral, ONCE PRN, 1 dose, Starting on Tue09/29/16 at 1037, Until Tue09/29/16 at 1048, Pain, Pre-procedure, Routine pantoprazole (PROTONIX) injection 40 mg 40 mg, Intravenous, DAILY, First dose on Tue09/29/16 at 0900, Until Discontinued, Reconstitute with 10 mL of normal saline to a concentration of 4 mg/mL and infuse slowly over 2 minutes. , Routine pantoprazole (PROTONIX) tablet 40 mg Given 09/30/2016 9:10 AM EDT 40 mg 40 mg, Oral, DAILY, First dose on Tue09/29/16 at 0900, Until Discontinued, DO NOT CRUSH OR OPEN If unable to take PO, may give IV, Routine Given 09/29/2016 8:25 AM EDT 40 mg sodium chloride 0.9 % flush 5 mL Given 09/29/2016 8:51 PM EDT 5 mLs 5 mL, Intravenous, 2 TIMES DAILY, First dose on Tue09/29/16 at 0900, Until Discontinued, Recovery (Recovery-Hospital Unit), Routine SUMAtriptan (IMITREX) tablet 50 mg Given 09/29/2016 3:14 PM EDT 50 mg 50 mg, Oral, DAILY PRN, Starting on Tue09/29/16 at 1303, Until Chikis 09/30/16 at 1820, Migraine, Maximum dose: 200mg in 24 hours, Routine documented in this encounter Active and Recently Administered Medications Times are shown in EDT. Scheduled Medication Order 09/28/2016 09/29/2016 09/30/2016 atorvastatin (LIPITOR) tablet 40 mg 827 (Given - Provider: Renee Thomas RN) 908 (Given - Provider: Christine Singer , RN) 40 mg, Oral, DAILY, First dose on Tue at 0900, Until Discontinued, Routine cefTRIAXone (ROCEPHIN) 2g in dextrose 5% 50mL (CANCELED) 827 (Given - Provider: Renee Thomas RN) 2 g, Intravenous, EVERY 24 HOURS, First dose on Tue09/29/16 at 0900, Until Discontinued, Administer over 30 Minutes, Indication for (Active or Suspected): Skin/Skin Structure clindamycin (CLEOCIN) 900mg in dextrose 5% 50mL (COMPLETED) 513 (Given - Provider: Liliana Serna, MICHELLE)114 (Given - Provider: Renee Thomas, MICHELLE) 900 mg, Intravenous, EVERY 8 HOURS, 2 do ses, First dose on Tue09/29/16 at 0330, Last dose on Tue09/29/16 at 1130, Administer over 30 Minutes, Give over 30-60 minutes. Do not exceed 30mg/minute., Recover y (Recovery-Hospital Unit), Indication f or (Active or Suspected): Skin/Skin Structure fentaNYL 50mcg/mL injection (COMPLETED) 107 (Given - Provider: Raya Grant, MICHELLE) 100 mcg, Intravenous, ONCE, 1 dose, Tue09/29/16 at 0115, Routine FLUoxetine (PROzac) capsule 20 mg 827 (Given - Provider: Renee Thomas RN) 908 (Given - Provider: Christine Singer, RN) 20 mg, Oral, DAILY, First dose on Tue at 0900, Until Discontinued, Routine insulin glargine VIAL injection 32 Units 827 (Given - Provider: Renee Thomas, MICHELLE)2049 (Given - Provider: Trisha Franco RN) 0814 (Given - Provider: Christine Singer RN) 32 Units, Subcutaneous, 2 TIMES DAILY, F irst dose on Tue09/29/16 at 0900, Until Discontinued, Routine insulin lispro (humaLOG) VIAL injection 1-20 Units 0828 (Given - Provider: Renee Thomas RN)1243 (Given - Provider: Renee Thomas, RN)1807 (Given - Provider: Renee Thomas, MICHELLE) 0813 (Given - Provider: Christine Singer RN)1309 (Given - Provider: Christine Singer RN - Comment: 54 grams) 1-20 Units, Subcutaneous, 3 TIMES DAILY WITH MEALS, First dose on Tue09/29/16 at 0800, Until Discontinued, MEAL ASSOCIATED Give 1 unit for every 5 grams carbohydrate. Hold if not eating, Routine insulin lispro (humaLOG) VIAL injection 3-12 Units (CANCELED ) 0509 (Given - Provider: Liliana Serna RN) 3-12 Units, Subcutaneous, EVERY 4 HOURS SCHEDULED, First dose on Tue09/29/16 at 0400, Until Discontinued, CORRECTION BOLUS Resistant to insulin obese patient or TDD (total daily dose of all insulin needed to achieve glycemic control) grea ter than 60 units BG 140 - 160 Give 3 units BG 161 - 200 Give 6 units BG 201 - 240 Give 9 units BG greater than 240, give 12 units and recheck BG in 2 hours. If l ess than 240 after two hours, give no in sulin and resume prior schedule. If BG remains greater than 240, repeat 12 units (no more than three times) & call for new basal insulin orders. DO NOT hold if NPO, unless specifically told to do so., Routine insulin lispro (humaLOG) VIAL injection 3-12 Units (CANCELED ) 07 (Given - Provider: Liliana Serna RN)0929 (Given - Provider: Renee Thomas RN)1148 (Given - Provider: Renee Thomas, MICHELLE)1634 (Given - Provider: Renee Thomas, MICHELLE) 3-12 Units, Subcutaneous, 3 TIMES DAILY BEFORE MEALS, First dose on Tue09/29/16 at 0730, Until Discontinued, CORRECTION BOLUS Resistant to insulin obese patient or TDD (total daily dose of all insul in needed to achieve glycemic control) g reater than 60 units BG 140 - 160 Give 3 units BG 161 - 200 Give 6 units BG 201 - 240 Give 9 units BG greater than 240, give 12 units and recheck BG in 2 hours.If BG less than 240 after two hours, give no insulin and resume prior schedule. If BG remains greater than 240, repeat 12 units (no more than three times) & call for new basal insulin orders. DO NOT h old if NPO, unless specifically told to do so., Routine insulin lispro (humaLOG) VIAL injection 3-12 Units(Linked Gr oup 1) 2046 (Given - Provider: Trisha Franco, RN) 0704 (Given - Provider: Trisha Franco, RN)0911 (Given - Provider: Christine Singer, RN)1109 (Given - Provider: Christine Singer, RN)1548 (Given - Provider: Christine Singer, RN) 3-12 Units, Subcutaneous, 4 TIMES DAILY BEFORE MEALS & NIGHTLY, First dose on Tue09/29/16 at 2100, Until Discontinued, CORRECTION BOLUS Resistant to insulin obese patient or TDD (total daily dos e of all insulin needed to achieve glyce kaleigh control) greater than 60 units BG 140 - 160 Give 3 units BG 161 - 200 Give 6 units BG 201 - 240 Give 9 units BG greater than 240, give 12 units and recheck BG in 2 hours.If BG less than 240 after tw o hours, give no insulin and resume prior schedule. If BG remains greater than 240, repeat 12 units (no more than three times) & call for new basal insulin or ders. DO NOT hold if NPO, unless specifically told to do so., Ro utine levothyroxine (SYNTHROID) tablet 200 mcg 0554 (Given - Provider: Liliana Serna RN) 0530 (Given - Provider: Trisha Franco, MICHELLE) 200 mcg, Oral, EVERY MORNING, First dose on Tue09/29/16 at 0600, Until Discontinued, Routine lisinopril (PRINIVIL;ZESTRIL) tablet 5 mg 08 (Given - Provider: Renee Thomas RN) 09 (Given - Provider: Christine Singer , MICHELLE) 5 mg, Oral, DAILY, First dose on 09/05 at 0900, Until Discontinued, Routine metFORMIN (GLUCOPHAGE) tablet 1,000 mg (CANCELED) 28 (Given - Provider: Renee Thomas RN - Comment: medication was not available from pharmacy)1634 (Given - Provider: Renee Thomas RN) 1,000 mg, Oral, 2 TIMES DAILY WITH MEALS , First dose on Tue09/29/16 at 0800, Until Discontinued, Routine norethindrone (AYGESTIN) tablet 2.5 mg 0 825 (Given - Provider: Renee Thomas RN) 0908 (Given - Provider: Christine Singer RN) 2.5 mg, Oral, DAILY, First dose on Tue at 0900, Until Discontinued, Routine pantoprazole (PROTONIX) injection 40 mg(Linked Group 2) 0825 (See Alternative - Provider: Renee Thomas RN) 0910 (See Alternative - Provider: Becca Singer RN) 40 mg, Intravenous, DAILY, First dose on Tue09/29/16 at 0900, Until Discontinued, Reconstitute with 10 mL of normal saline to a concentration of 4 mg/mL and infuse slowly over 2 minutes. , Routine pantoprazole (PROTONIX) tablet 40 mg(Linked Group 2) 0825 (Given - Provider: Renee Thomas RN) 0910 (Given - Provider: Christine Singer RN) 40 mg, Oral, DAILY, First dose on Tue at 0900, Until Discontinued, DO NOT CRUSH OR OPEN If unable to take PO, may give IV, Routine sodium chloride 0.9 % flush 5 mL 899 (N ot Given - Provider: Renee Thomas RN - Reason: See comment - Comment: PIV infusing medication)2050 (Given - Provider: Trisha Franco RN) 911 (Not Given - Provider: Christine samaniego RN - Reason: See comment - Comment: IV leaked, D/C) 5 mL, Intravenous, 2 TIMES DAILY, First dose on Tue09/29/16 at 0900, Until Discontinued, Recovery (Recovery-Hospital Unit), Routine PRN Medication Order 09/28/2016 09/29/2016 09/30/2016 acetaminophen (TYLENOL) tablet 1,000 mg 1,000 mg, Oral, EVERY 6 HOURS PRN, Start ing Tue09/29/16 at 0302, Until Tue09/30/16 at 1820, Pain, for MODERATE pain (4-6), Do not exceed 4,000 mg in 24 hours, Routine dextrose 50% injection 25-50 mL(Linked Group 3) 25-50 mL (12.5-25 g), Intravenous, EVERY 1 HOUR PRN, Starting Tue09/29/16 at 0302, Until Tue09/30/16 at 1820, Low blood sugar, For BG 50-70: 120 mL Juice or Regular (not diet) soda OR 12.5 gram (25 mL ) Dextrose 50% IV OR, if no IV access, 1 mg Glucagon IM. Recheck BG in 30 minutes. May repeat juice, dextrose or glucagon once per episode For BG less than 50: 240 mL Juice or Regular (not diet) sod a OR 25 grams (50 mL) Dextrose 50% IV OR , if no IV access, 1 mg Glucagon IM. Recheck BG in 30 minutes. May repeat juice, dextrose, or glucagon once per episode. To avoid extravasation, push Dextrose 50% SLOWLY (3 mL over 1 minute) in a pa tent, running IV, preferably a central line. For persistent hypoglycemia, consider longer-acting treatment for the duration of the active insulin., Routine glucagon (human recombinant) injection SolR 1 mg(Linked Group 3) 1 mg, Intramuscular, EVERY 1 HOUR PRN, S tarting Tue09/29/16 at 0302, Until Tue09/30/16 at 1820, Low blood sugar, For BG 50-70: 120 mL Juice or Regular (not diet) soda OR 12.5 gram (25 mL) Dextrose 50% IV OR, if no IV access, 1 mg Glucagon I M. Recheck BG in 30 minutes. May repeat juice, dextrose or glucagon once per episode For BG less than 50: 240 mL Juice or Regular (not diet) soda OR 25 grams (50 mL) Dextrose 50% IV OR, if no IV acc ess, 1 mg Glucagon IM. Recheck BG in 30 minutes. May repeat juice, dextrose, or glucagon once per episode. To avoid extravasation, push Dextrose 50% SLOWLY (3 mL over 1 minute) in a patent, running IV, preferably a central line. For persistent hypoglycemia, consider longer-acting treatment for the duration of the active insulin. , Routine lidocaine (XYLOCAINE) 10 mg/mL (1 %) injection 3 mg 3 mg (0.3 mL), Subcutaneous, ONCE PRN, 1 dose, Starting 09/29/16 at 0302, Until Chikis 09/30/16 at 1820, for discomfort with PIV insertion, Recovery (Recovery-Hospital Unit), Routine naproxen (ANAPROX) tablet 550 mg 2058 (Given - P rovider: Trisha Franco, MICHELLE) 550 mg, Oral, 2 TIMES DAILY PRN, Startin g 09/29/16 at 0302, Until Chikis 09/30/16 at 1820, Pain, take with food or milk, Routine ondansetron (ZOFRAN) injection 4 mg(Linked Group 4) 4 mg, Intravenous, EVERY 8 HOURS PRN, St arting 09/29/16 at 0302, Until Chikis 09/30/16 at 1820, Nausea, May repeat times one in 30 minutes if ineffective. If multiple antiemetics are ordered, use onda nstron first, Recovery (Recovery-Hospital Unit) ondansetron (ZOFRAN) tablet 4 mg(Linked Group 4) 4 mg, Oral, EVERY 8 HOURS PRN, Starting 09/29/16 at 0302, Until Chikis 09/30/16 at 1820, Nausea, Vomiting, If multiple antiemetics are ordered, use ondansetron first. PO Preferred. If patient unable to take PO, may give IV if ordered. May repeat times one in 45 minutes if ineffective., Recovery ([facility]ospital Unit), Routine oxyCODONE (ROXICODONE) immediate release tablet 5 mg (COMPLE MARLON) 1048 (Given - Provider: Nikkie Powell RN) 5 mg, Oral, ONCE PRN, 1 dose, Starting W ed 09/29/16 at 1037, Until Discontinued, Pain, Pre-procedure, Routine sodium chloride 0.9 % flush 5-20 mL 5-20 mL, Intravenous, EVERY 1 MIN PRN, S tarting 09/29/16 at 0302, Until Chikis 09/30/16 at 1820, flush, Flush pertains to all indwelling lines. Flush per protocol found in the job aid using the link prov ided on this medication record., Recovery (Rec[facility]Hospital Uni t), Routine SUMAtriptan (IMITREX) tablet 50 mg 1514 (Given - Provider: Renee Thomas RN) 50 mg, Oral, DAILY PRN, Starting 09/05 at 1303, Until Tue09/30/16 at 1820, Migraine, Maximum dose: 200mg in 24 hours, Routine Linked Groups Order Group 1: POCT Fingerstick Glucose (CANCELED) Routine, 4 TIMES DAILY BEFORE MEALS & AT BEDTIME, First occurrence on Tue09/29/16 at 2200, Until Specified
Consider choosing FOUR TIMES A DAY BEFORE MEALS AND AT BEDTIME as frequency fo r: Patients who have a good hypoglycemia awareness: -Patients who are eating meals during the day and sleeping at night -Patient who are otherwise stable And insulin lispro (humaLOG) VIAL injection 3-12 UnitsJump to med 3-12 Units, Subcutaneous, 4 TIMES DAILY BEFORE MEALS & NIGHTLY, First dose on Tue09/29/16 at 2100, Until Discontinued
CORRECTION BOLUS Resistant to insulin obese patient or TDD (total daily dose of all insulin needed to achieve glycemic control) greater than 60 units BG 140 - 160 Give 3 units &am p;nbsp;BG 161 - 200 Give 6 un its BG 201 - 240 Give 9 units BG greater than 240, give 12 units and recheck BG in 2 hours.If BG less than 240 after two hours, give no insulin and resume prior schedule. If BG remains greater than 240, repeat 12 units (no more than three times) & call for new basal insu nya orders. DO NO T hold if NPO, unless specifically told to do so.
Routine Group 2: pantoprazole (PROTONIX) tablet 40 mgJump to med 40 mg, Oral, DAILY, First dose on Tue at 0900, Until Discontinued
DO NOT CRUSH OR OPEN If unable to take PO, may give IV
Routine Or pantoprazole (PROTONIX) injection 40 mgJump to med 40 mg, Intravenous, DAILY, First dose on Tue09/29/16 at 0900, Until Discontinued
Reconstitute with 10 mL of normal saline to a concentration of 4 mg/mL and infuse slowly over 2 minutes.
Routine Group 3: dextrose 50% injection 25-50 mLJump to med 25-50 mL (12.5-25 g), Intravenous, EVERY 1 HOUR PRN, Starting Tue09/29/16 at 0302, Until Chikis 09/30/16 at 1820, Low blood sugar
For BG 50- 70: 120 mL Juice or Regular (not t) soda OR 12.5 gram (25 mL) Dextrose 50 % IV OR, if no IV access, 1 mg Glucagon IM. Recheck BG in 30 minutes. May repeat juice, dextrose or glucagon once per epis ode For BG less than 50: 240 mL J uice or Regular (not diet) soda OR 25 grams (50 mL) Dextrose 50% IV OR, if no IV access, 1 mg Glucagon IM. Recheck BG in 30 minutes. & nbsp;May repeat juice, dextrose, or gluc agon once per episode. To avoid extravasation, push Dextrose 50% SLOWLY (3 mL over 1 minute) in a patent, running IV, preferably a central line.&nb sp;For persistent hypoglycemia, consid er longer-acting treatment for the duration of the active insulin.
Routine Or glucagon (human recombinant) injection SolR 1 mgJump to med 1 mg, Intramuscular, EVERY 1 HOUR PRN, S tarting Tue09/29/16 at 0302, Until Tue09/30/16 at 1820, Low blood sugar
For BG 50-70: 120 mL Juice or Regular (not diet) soda OR 12. 5 gram (25 mL) Dextrose 50% IV OR, if no IV access, 1 mg Glucagon IM. Recheck BG in 30 minutes. May repeat juice, dextrose or glucagon once per episode * *For BG less than 50: 240 mL Juice or Re gular (not diet) soda OR 25 grams (50 mL) Dextrose 50% IV OR, if no IV access, 1 mg Glucagon IM. Recheck BG in 30 minutes. May repea t juice, dextrose, or glucagon once per episode. To avoid extravasation, push Dextrose 50% SLOWLY (3 mL over 1 minute) in a patent, running IV, preferably a central line. For persi stent hypoglycemia, consider longer-acti ng treatment for the duration of the active insulin.
Routine Group 4: ondansetron (ZOFRAN) tablet 4 mgJump to med 4 mg, Oral, EVERY 8 HOURS PRN, Starting Tue09/29/16 at 0302, Until Chikis 09/30/16 at 1820, Nausea, Vomiting
If multiple antiemetics are ordered, use ondansetron first. PO Preferred. If patient unable to take PO, may give IV if ordered. May repeat times one in 45 minutes if ineffective.
Recovery (Recovery-Hospital Unit), Routine Or ondansetron (ZOFRAN) injection 4 mgJump to med 4 mg, Intravenous, EVERY 8 HOURS PRN, St arting Tue09/29/16 at 0302, Until Chikis 09/30/16 at 1820, Nausea
May repeat times one in 30 minutes if ineffective. If multiple antiemetics are ordered, use ondanstron first
Recov trav (Recovery-Hospital Unit) documented in this encounter Care Teams Purchase Analyst Relationship Specialty Start Date End Date Marcia Dickens, ORACLE BRM DEVELOPER PCP - General Family Medicine 10/30/[address] [place] [address] documented as of this encounter
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
--- OUTSIDE RECORDS SUMMARY | 2021-12-17 15:07 | XMS_ITS | Encounter Summary ---
:1975 Author Organization [facility] [place] [address] Care Team Providers Name Role Phone Marcia Dickens APRN Primary Care Provider Reason for Visit Reason Comments Hypothyroidism Diabetes Encounter Details Date Type Department Care Team Description 10/14/2017 Office Visit Endocrinology at [facility] Diane Berkowitz, Uncontrolled type 2 diabetes mellitus with hyperglycemia, with long-term current use of insulin; [facility] MD Liliana [place]othy[place], [place] [address] [address] [phone] ENDOCRINOLOGY [place] [address] Social History Tobacco Use Types Packs/Day Years [...] Sign Reading Time Taken Comments Blood Pressure 140/94 10/14/2017 10:47 AM EDT Pulse 68 10/14/2017 10:47 AM EDT Temperature - - Respiratory Rate - - Oxygen Saturation - - Inhaled Oxygen Concentration - - Weight 113.9 kg (251 lb 2 oz) 10/14/2017 10:47 AM EDT Height - - Body Mass Index 37.08 02/23/2017 3:51 PM EST documented in this encounter Patient Instructions Patient InstructionsYLiliana mosquera MD - 10/14/2017 11:00 AM EDT ?? Resume all meds, with the following change: ?? Switch from Lantus 32 units twice daily to Toujeo 64 units once daily (one less needle stick per day). ?? If your insurance doesn't cover Toujeo, let Dr. Berkowitz know, in which case we can try Tresiba. Until then, keep taking your Lantus. ?? Next appointment in 3 months - TuesdayJanuary 13 at 2pm. ?? Get labs done 1 week prior to your appointment, at your local lab, with the lab slips provided today. Bring results with you to your appointment. documented in this encounter Progress Notes Liliana Berkowitz MD - 10/14/2017 11:00 AM EDT Endocrinology Clinic Follow-up Visit Reason for Visit: Follow-up of Diabetes Mellitus Type 2, hypothyroidism HISTORY OF PRESENT ILLNESS: Ms. Evita Singleton is a 42 y.o. year old lady with history significant for DM type 2 and Jeffrey's hypothyroidism. Her last diabetes visit was with me, about 8 months ago, in Feb 2017. She reports today that she has been completely off of all her meds for 3 months. She reports today that she got overwhelmed with all of her meds which made her stop everything. She notes that whenever she would miss a dose, she would beat herself up a lot, so she gave up completely. On the night of 10/12/17 she was extremely thirsty so drank 2 liters of regular grape soda, then feltextremely dizzy and ill, and saw Dr. Narayanan, who did labs - A1c was 12.4% Date of Diagnosis: 2010 - GDM, 2013 - DM type 2 ? Last HgbA1c: 7.8% (02/23/17), 11.4% (08/19/16), 11.4% (05/24/16), 9.8% (11/26/15), 10.6% (October 2015) ? Current Diabetes Medication regimen: victoza 1.8mg SC daily Lantus 32??units BID Novolog 1:5g + 1:15mg/dL above 150 mg/dL (uses written out scale). Metformin XR 1000mg BID no GI side effects. ? FSBG regimen: TIDAC As above ? Hypoglycemia: none ? Diet: ? Physical Activity: ? Smoking: quit in 2010. ? History of complications 1) Nephropathy - Um:cr ?, sCr ??0.90??GFR >60 (08/19/16). 2) Neuropathy - +n/t for the past 1 month. Monofilament exam WNL by Kary Ashford, SOFTWARE DEVELOPMENT INTERN Nov 2015. 3) Retinopathy - Last ophtho [...] sleep apnea) 05/28/2012 ??? Hypertension MEDICATIONS: Medications 10/14/17 1112 Medication Sig Taking? liraglutide (VICTOZA) 0.6 mg/0.1 mL (18 mg/3 mL) Pen Injector Inject 1.8 mg subcutaneously daily. ICD 10 Code: E11.69 Patient not taking: Reported on 10/14/2017 levothyroxine (SYNTHROID) 200 mcg Tablet Take 1 tablet by mouth daily. 1 tablet daily 6 days per week and 2 tablets one day per week. Patient not taking: Reported on 10/14/2017 metFORMIN (GLUCOPHAGE-XR) 500 mg Tablet Sustained Release 24 hr Take 2 tablets by mouth 2 times daily. Patient not taking: Reported on 10/14/2017 hydroCHLOROthiazide (HYDRODIURIL) 12.5 mg Tablet Take 12.5 mg by mouth daily. loratadine (CLARITIN) 10 mg Tablet Take 10 mg by mouth daily. naproxen (NAPROSYN) 500 mg Tablet Take 500 mg by mouth 2 times daily. lisinopril (PRINIVIL;ZESTRIL) 5 mg Tablet Take 5 mg by mouth daily. insulin glargine (LANTUS SOLOSTAR) Insulin Pen Inject 32 Units subcutaneously 2 times daily. atorvastatin (LIPITOR) 40 mg Tablet Take 40 mg by mouth daily. insulin aspart (NOVOLOG FLEXPEN) Insulin Pen Inject 4-20 Units subcutaneously 3 times daily. FLUoxetine (PROZAC) 20 mg Capsule Take 1 capsule by mouth daily. Patient not taking: Reported on 10/14/2017 Pantoprazole (PROTONIX) [address] for susp in Packet Take 40 mg by mouth daily. Patient not taking: Reported on 10/14/2017 hyaluronate (HYLAN,SYNVISC) 16 mg/2 mL Syringe Inject 16 mg into the articular space Q6 Months. SUMAtriptan (IMITREX) 50 mg tablet Take 1 tablet by mouth as needed for Migraine (Take 50 mg at onset of migraine. May take additional 50 mg in 2 h if no relief). Patient not taking: Reported on 10/14/2017 Levocetirizine (XYZAL) 5 mg Tab Take 1 tablet by mouth daily. Patient not taking: Reported on 10/14/2017 hydrOXYzine (ATARAX) 25 mg tablet Take 1 tablet by mouth 3 times daily as needed for Itching. Do notoperate machinery on this medication. Patient not taking: Reported on 10/14/2017 triamcinolone (KENALOG) 0.025 % cream Apply topically 2 times daily. Patient not taking: Reported on 10/14/2017 multivitamin (THERAGRAN) tablet Take 1 tablet by mouth daily. ALLERGIES: Allergies Allergen Reactions ??? Latex Anaphylaxis [...] HPI. PHYSICAL EXAM: Vitals Office Visit from 10/14/2017 in Endocrinology at [place] Weight 113.9 kg (251 lb 2 oz) Heart Rate 68 BP (!) 140/94 Patient Position Sitting ASSESSMENT: 42 yo F with DM type 2 and hypothyroidism, complicated by prolonged periods of noncompliance with medications. Advised to resume her medications and I also spent some time brainstorming with her about ways to make her diabetes regimen less overwhelming for her. One easy change that might help is to consolidate her twice daily Lantus injection to a once daily injection of a more concentrated long-acting insulin such as Toujeo or Tresiba. I will plan to see her back in 3 months to reassessher diabetes control and thyroid hormone status. PLAN: ?? Resume all meds, with the following change: ?? Switch from Lantus 32 units twice daily to Toujeo 64 units once daily (one less needle stick per day). ?? If her insurance doesn't cover Toujeo, to let me know, in which case we can try Tresiba. Until then, she should keep taking her Lantus as she has been doing. ?? Next appointment in 3 months - TuesdayJanuary 13 at 2pm. ?? Get labs done 1 week prior to your appointment, at local lab, with the lab slips provided today. To bring results with her to her appointment. 25 min of this 40 min face to face visit was spent in counseling the patient on DM mgmt. LILIANA BERKOWITZ MD Customer Service Advisorlube worker Section of Endocrinology [facility] documented in this encounter Plan of Treatment Not on filedocumented as of this encounter Visit Diagnoses Diagnosis Uncontrolled type 2 diabetes mellitus wi th hyperglycemia, with long-term current use of insulin Hypothyroidism, unspecified type documented in this encounter Care Teams Panel Edge Painter Relationship Specialty Start Date End Date Marcia Dickens APRN PCP - General Family Medicine 10/30/[address] [place] [address] documented as of this encounter
--- OUTSIDE RECORDS SUMMARY | 2021-12-17 15:07 | XMS_ITS | Encounter Summary ---
:1975 [place] [address] Care Team Providers Name Role Phone Marcia Dickens APRN Primary Care Provider Encounter Details Date Type Department Care Team Description 05/27/2020 [facility] [address] [facility] [place] [address] [facility] [phone] [place], [place] [address] (Wo rk) Social History Tobacco [...] on filedocumented in this encounter Care Teams Cementer Machine Applicator Relationship Specialty Start Date End Date Marcia Dickens APRN PCP - General Family Medicine 10/30/[address] [place], [place] [id number] documented as of this encounter
--- OUTSIDE RECORDS SUMMARY | 2021-12-17 15:07 | XMS_ITS | Encounter Summary ---
:1975 Author Organization [facility] Address [address] [place] [address] Care Team Providers Name Role Phone Marcia Dickens APRN Primary Care Provider Encounter Details Date Type Department Care Team Description 01/10/2018 Laboratory Appointment Lab 3L Tracey mark type 2 [facility] diabetes mellitus with Hospital complication, with [facility] long-term current [place] [id number] Social History Tobacco Use Types Packs/Day Years [...] Name Priority Date/Time Associated Diagnosis Comme nts CREATININE STAT 01/10/2018 9:07 AM Uncontrolled type 2 Re sults for this EST diabetes mellitus procedure are in with complication, the resul ts with long-term section. current use of insulin TSH STAT 01/10/2018 9:07 AM Results f or this EST procedure are i n the results section. LDL CHOLESTEROL, STAT 01/10/2018 9:07 AM Uncontrolled type 2 Results for this DIRECT EST diabetes mellitus procedure are in with complication, the resul ts with long-term section. current use of insulin HEMOGLOBIN A1C STAT 01/10/2018 9:07 AM Uncontrolled type 2 Results for this EST diabetes mellitus procedure are in with complication, the resul ts with long-term section. current use of insulin documented in this encounter Results (ABNORMAL) TSH (01/10/2018 9:07 AM EST) P athologist Signature TSH 10.27 (H) 0.27 - [facility] 4.20 [facility] mlU/ML [facility] Specimen Anatomical Collection Method Collection Time Receive d Time (Source) Location / / Volume Laterality Blood specimen Venous Draw / 01/10/2018 9:07 AM 2017 9:32 (specimen) Unknown EST AM EST Resulting Agency Comment Spec In Lab Liliana Berkowitz MD CHEMISTRY ORDERABLES Performing Organization Address City/State/[place] [address] (ABNORMAL) Hemoglobin A1c (01/10/2018 9:07 AM EST) Analysis Performed At Patho logist Time Signature Hemoglobin A1C 9.7 (H) 4.3 - 5.6 [facility] Comment: Reference Range: 4.3 - [...] Mellitus, Diabetes Care 2013; 36: Suppl. 1, P78-65 Est Avg Gluc 232 mg/dL [facility] Comment: eAG equivalents for HbA1c percentages: HbA1c(%) ?eAG(mg/dL) 6.0 ?126 6.5 ?140 7.0 ?154 7.5 ?169 8.0 ?183 8.5 ?197 9.0 ?212 9.5 ?226 10.0 ? 240 Limitations: The eAG calculation has not been validated on women, individuals below 18 years old and above 70 years old, and individuals with hemoglobinopathies. Additional resources are available on [facility] website. Angelo MULLEN, Ariel J, Bill R, et al. ??Tr anslating the A1C assay into estimated average glucose values. ??Diabetes Care 2008:31(8):7403-0358. Specimen Anatomical Collection Method Collection Time Receive d Time (Source) Location / / Volume Laterality Blood specimen 01/10/2018 9:07 AM 018 9:15 (specimen) EST AM EST Resulting Agency Comment Spec In Lab Liliana Berkowitz MD CHEMISTRY ORDERABLES Performing Organization Address City/State/[place] [address] Creatinine (01/10/2018 9:07 AM EST) P athologist Signature Creatinine 0.74 0.70 - [facility] 1.20 mg/dL [facility] Estimated GFR 99 >=60 [facility] mL/min/1.7 [facility] 3 m?? HOSPITAL [facility] Comment: The eGFR was calculated using the CKD-EP I equation. As with all creatinine based estimates of kidney function, eGFR values calculated with the CKD-EPI equation are not accurate in patients wi th acute kidney failure, extremes of body mass or the acutely ill. [email or web address]MAN[facility]f eGFR 114 >=60 mL/min/1.73 m?? [facility] Comment: The eGFR was calculated using the CKD-EP I equation. As with all creatinine based estimates of kidney function, eGFR values calculated with the CKD-EPI equation are not accurate in patients wi th acute kidney failure, extremes of body mass or the acutely ill. [email or web address]/[facility] Specimen Anatomical Collection Method Collection Time Receive d Time (Source) Location / / Volume Laterality Blood specimen 01/10/2018 9:07 AM 018 9:15 (specimen) EST AM EST Resulting Agency Comment Spec In Lab Liliana Berkowitz MD CHEMISTRY ORDERABLES Performing Organization Address City/[facility]/[place] [address] LDL Cholesterol, Direct (01/10/2018 9:07 AM EST) P athologist Signature LDL Chol 152 mg/dL [facility] Comment: Lowest Risk: <100 mg/dL Lower Risk: 100-129 mg/dL Borderline High Risk: 130-159 mg/dL High Risk: 160-189 mg/dL Very High Risk: >dh=142 mg/dL Specimen Anatomical Collection Method Collection Time Receive d Time (Source) Location / / Volume Laterality Blood specimen 01/10/2018 9:07 AM 018 9:15 (specimen) EST AM EST Resulting Agency Comment Spec In Lab Liliana Berkowitz MD CHEMISTRY ORDERABLES Performing Organization Address City/[facility]/[place] [address] documented in this encounter Visit Diagnoses Diagnosis Uncontrolled type 2 diabetes mellitus wi th complication, with long-term current use of insulin documented in this encounter Care Teams Resource Conservation Specialist Relationship Specialty Start Date End Date Marcia Dickens APRN PCP - General Family Medicine 10/30/[address] [place] [address] documented as of this encounter
--- OUTSIDE RECORDS SUMMARY | 2021-12-17 15:07 | XMS_ITS | Encounter Summary ---
:1975 Author Organization [facility] Address [address] [place] [address] Care Team Providers Name Role Phone Marcia Dickens APRN Primary Care Provider Reason for Visit Reason Onset Date Comments Other 11/26/2015 Office of Care Manag ement-On Duty-Walk [place] Card request-approved Encounter Details Date Type Department Care Team Description 11/26/2015 Telephone Care Management [place] Other (Office of Care [facility] Managemen t-On Duty-[place] [address] request-approved) [phone] Social History Tobacco Use Types Packs/Day Years Used Date Former Smoker Cigarettes 2 10 Quit: 09/05/19 11 Smokeless Tobacco: Never Used Comments: quits during Alcohol Use Standard Drinks/Week Comments No 0 (1 standard drink = 0.6 oz pure alcoho l) n/a Sex Assigned at Date Recorded Female 05/09/2020 7:27 PM EST documented as of this encounter Miscellaneous Notes Telephone Encounter - [place] - 11/26/2015 3:34 PM EDT Office of Care Management-On Duty-Walk [place] Card request-approved Ms. Singleton came into [facility] today-requested assistance with gas card. Pt stated income just covers her rent and [place] [place]. Pt has [place] medicaid-no transporation benefit when pt's have a vehicle. Pt drove herself down. Her appt today was a Epy.[place] appt-I advised pt we do not assist with scheduled appt's. If we assist today it would be an exception and she will need to find other options for next appt in Dec. Reviewed possible local transportation carriers unfortunately It does appear they may not be able to assist her. Pt stated she will contact [place] Medicaid to see if there are any exceptions for transportation benefit. Also discussed use of [employer]. Pt stated she has heard of them. I advised her to contact them to see if they have any other ideas. I did approve $10. Hawkins of gas cards for pt today. Pt expressed appreciation for the assistance today.[id number] documented in this encounter Plan of Treatment Not on filedocumented as of this encounter Visit Diagnoses Not on filedocumented in this encounter Care Teams Supervisory Aide Relationship Specialty Start Date End Date Marcia Dickens APRN PCP - General Family Medicine 10/30/[address] [place] [address] documented as of this encounter
--- OUTSIDE RECORDS SUMMARY | 2021-12-17 15:07 | XMS_ITS | Encounter Summary ---
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; [facility] MD Liliana Type 2 diabetes mellitus without complic ation, with long-term [place] [address] [facility] [phone] [place] [address] Social History Tobacco Use Types Packs/Day Years [...] Sign Reading Time Taken Comments Blood Pressure 162/76 08/19/2016 1:46 PM EDT Pulse 76 08/19/2016 1:46 PM EDT Temperature - - Respiratory Rate - - Oxygen Saturation - - Inhaled Oxygen Concentration - - Weight 132.9 kg (293 lb) 08/19/2016 1:46 PM EDT Height 175.3 cm (5' 9) 08/19/2016 1:46 PM EDT Body Mass Index 43.27 08/19/2016 1:46 PM EDT documented in this encounter Patient Instructions Patient InstructionsLiliana Berkowitz MD - 08/19/2016 11:00 AM EDT Stop Lantus. Start Toujeo instead - it will be a ONCE DAILY injection of 165 units. You can give it to yourself all in one injection. Continue Novolog at current dosing Continue Victoza & metformin Check to see if you truly have been taking the 200 mcg levothyroxine tablet. If you have been, then increase your dose to 275 mcg daily (200 mcg tablet + three 25 mcg tablets) If not, then start taking 250 mcg daily. Follow-up with Kary Ashford APRN in [address] Berkowitz in 6 months. Come one hour early to each appointment for blood draw in the 3L main lab at [facility]. documented in this encounter Progress Notes Liliana Berkowitz MD - 08/19/2016 11:00 AM EDT Endocrinology Clinic Follow-up Visit Reason for Visit: Follow-up of Diabetes Mellitus Type 2 and Jl's hypothyroidism. HISTORY OF PRESENT ILLNESS: Ms. Evita Singleton is a 41 y.o. year old lady with history significant for DM type DM type 2 and Jl's hypothyroidism. I last saw the patient in clinic about 3 months ago in May 2016, at which time she was running 300s-500s for about 2-3 months previous and A1c was 11.4% Her TSH was 13, but sheadmitted to having missed LT4 doses intermittently and may not have been spacing them adequately from food & other supplements, and her dose had been increased recently from 225 mcg to 250 mcg daily. At that visit we planned the followin. DM type 2 --start victoza - ramp up every 2 weeks to max dose of 1.8 mg daily --continue current insulin doses, continue using Lantus self-adjustment parameter given to her by PCP recently (+/- 2 units every 2 days for BG <90 or >150mg/dL). --continue metformin XR 1000mg twice daily. --will consider adding SGLT-2 inhibitor at next visit if additional control is needed, or to try to lower insulin requirement. 2. Jl's hypothyroidism - increase compliance with 250 mcg LT4 daily. 3. Follow-up in 3 months, labs 1 hour prior to appt (A1c, LDL, Um:cr). She presents today with her case management coordinator. Has felt improvement in her appetite with victoza - feels this has been a great change for her. She admits she forgot to take her BP medication this AM. Date of Diagnosis: 2010 - GDM, 2013 - DM type 2 ?? Last HgbA1c: 11.4% (08/19/16), 11.4% (05/24/16), 9.8% (11/26/15), 10.6% (October 2015) ?? Current Diabetes Medication regimen: victoza 1.8mg SC daily Lantus 81 units BID (as of about 1.5 month ago) Novolog 1:5g + 1:15mg/dL above 150 mg/dL. Metformin XR 1000mg BID no GI side effects. FSBG regimen: TIDAC Checks FSBG 3x/day - fasting 220s-280s (improved from 400s). Pre-lunch - 300s- 330s. Pre-supper - 300-375. ?? Hypoglycemia: none ?? Diet: ?? Physical Activity: ?? Smoking: quit in 2010. ?? History of complications 1) Nephropathy - Um:cr , sCr 0.90 GFR >60 (08/19/16). 2) Neuropathy - +n/t for the past 1 month. No wounds or sore. 3) Retinopathy - Last ophtho evaluation every 6 months - +DR being followed - has not had laser rx yet 4) CV disease - LDL 119 (05/24/16) PAST MEDICAL HISTORY: Patient Active Problem List Diagnosis Date Noted ??? Pruritus 09/20/2012 Priority: High ??? Diabetes mellitus type 2 in obese Priority: High ??? state, incidental 06/02/2010 Priority: High ??? Hypothyroidism Priority: High ??? Obesity Priority: High ??? AMA (advanced maternal age) multigravida 35+ 06/03/2010 Priority: Medium ??? Depression Priority: Medium ??? GERD (gastroesophageal reflux disease) Priority: Low ??? Hyperlipidemia Priority: Low ??? Idiopathic urticaria - by history 06/04/2013 ??? Chronic urticaria 09/21/2012 ??? Angioedema 09/20/2012 ??? Elevated blood pressure 09/20/2012 ??? HALEY (obstructive sleep apnea) 05/28/2012 ??? Myopia with astigmatism 11/21/2011 ??? Right knee pain 08/30/2011 ??? Arthritis of knee, right 05/24/2011 ??? Type 2 diabetes mellitus 11/04/2010 ??? Myopia 11/04/2010 ??? Astigmatism 11/04/2010 ??? Shoulder impingement syndrome 09/03/2010 ??? Hypertension MEDICATIONS: Medications 08/19/16 2996 Medication Sig Taking? liraglutide (VICTOZA) 0.6 mg/0.1 mL (18 mg/3 mL) Pen Injector Inject 1.8 mg subcutaneously daily. 0.6 mg daily for 2 wk, then increase to 1.2 mg daily for 2 wk, then increase to 1.8mg daily thereafter.Yes levothyroxine (SYNTHROID) 25 mcg Tablet Take 1 tablet by mouth daily. Yes metFORMIN (GLUCOPHAGE-XR) 500 mg Tablet Sustained Release 24 hr Take 2 tablets by mouth 2 times daily (with meals). Yes atorvastatin (LIPITOR) 40 mg Tablet Take 40 mg by mouth daily. Yes insulin aspart (NOVOLOG FLEXPEN) Insulin Pen Inject 4-20 Units subcutaneously 3 times daily. Yes insulin glargine (LANTUS SOLOSTAR) Insulin Pen Inject 51 Units subcutaneously 2 times daily. Yes levothyroxine (SYNTHROID) 200 mcg Tablet Take 200 mcg by mouth daily. Yes FLUoxetine (PROZAC) 20 mg Capsule Take 1 capsule by mouth daily. Yes Pantoprazole (PROTONIX) [address] for susp in Packet Take 40 mg by mouth daily. Yes naproxen sodium (ALEVE) 220 mg Capsule Take by mouth. Yes hyaluronate (HYLAN,SYNVISC) 16 mg/2 mL Syringe Inject into the articular space once. Every 6 months Yes SUMAtriptan (IMITREX) 50 mg tablet Take 1 tablet by mouth as needed for Migraine (Take 50 mg at onset of migraine. May take additional 50 mg in 2 h if no relief). Yes Levocetirizine (XYZAL) 5 mg Tab Take 1 tablet by mouth daily. Yes hydrOXYzine (ATARAX) 25 mg tablet Take 1 tablet by mouth 3 times daily as needed for Itching. Do notoperate machinery on this medication. Yes triamcinolone (KENALOG) 0.025 % cream Apply topically 2 times daily. Yes acetaminophen (TYLENOL ARTHRITIS PAIN) 650 mg CR tablet Take 650 mg by mouth every 8 hours as needed. Do not exceed 6 tabs in 24 hours Yes multivitamin (THERAGRAN) tablet Take 1 tablet by mouth daily. Yes ALLERGIES: Allergies Allergen Reactions ??? Latex Anaphylaxis ??? Sulfa (Sulfonamide Antibiotics) Anaphylaxis and Hives SOCIAL HISTORY: History Smoking Status ??? Former [...] HPI. PHYSICAL EXAM: Vitals Office Visit from 08/19/2016 in Endocrinology Weight - Scale (!) 132.9 kg (293 lb) Height 175.3 cm (5' 9) BSA (Calculated - sq m) 2.54 sq meters BMI (Calculated) 43.4 Heart Rate 76 BP 162/76 Gen: NAD, AAOx3, speaking full sentences, calm pleasant demeanor, morbidly obese habitus Foot exam: no wounds or sores. ASSESSMENT: 41 yo F with DM type 2 and jl's hypothyroidism. She has tolerated initiation of victoza very well and has experienced some positive changes since starting it 3 months ago - she's hada 16 lb weight loss, and feels she has more control over her appetite. Her glucose control hasn't seemed to improve significantly despite an escalation of her lantus dose to maximum at 81 units twice daily. I will switch her to Toujeo which is triple-concentrated glargine that is even longer-acting (which can itself decrease insulin requirement), but since she is already still running high, will increase her daily basal insulin dose by another 3 units to a Toujeo dose of 165 units one daily. Her insulin requirement may also decrease as she continues to lose weight. If she continues to run high withthis change, will plan to add an SGLT-2 inhibitor at next visit, or sooner, if she contacts me with FSBG >250 mg/dL following this change, as I instructed her to do. For her hypothyroidism, her TSh is still elevated at 16 today; she is not perfectly compliant with her LT4 but she states she only missed 4 doses since her last visit (missing a dose about once a month). Since she is supposed to take 2 different sized tablets (one 200 mcg tablet and two 25 mcg tablets), and her case management coordinator's records suggest she may not have picked up 200 mcg tablet scripts since November 2015, I asked her to double check her bottles at home to see if she might not have accidentally been leaving out the 200 mcg tablet from her daily LT4 dosing. If so, i will have her resume the dose she was supposed to be on. If she has been taking the 200 mcg tablets, i will increase her LT4 to275 mcg daily and plan to recheck TSH at next visit. PLAN: 1. DM type 2 - Stop Lantus. Start Toujeo 165 units once daily. Continue Novolog at current dosing (1:5g, 1:15mg/dL above 150 mg/dL). Continue Victoza 1.8mg daily Continue metformin 1000mg twice daily. 2. Jl's hypothyroidism - Patient instructed to check and make sure she truly has been taking the 200 mcg levothyroxine tablet If she has been, then will increase dose to 275 mcg daily (200 mcg tablet + three 25 mcg tablets) If not, then she should start taking the 250 mcg daily that she was supposed to be taking. 3. Follow-up - with Kary Ashford APRN in [address] Berkowitz in 6 months. Come one hour early to each appointment for blood draw in the 3L main lab at [facility]. 25 min of this 40 min face to face visit was spent in counseling the patient on DM mgmt. LILIANA BERKOWITZ MD Coarse Wire Drawerstain wiper Section of Endocrinology [facility] Liliana Berkowitz MD - 08/19/2016 11:00 AM EDT Informed today (08/20/16) by Evita's case management coordinator that, as suspected, Evita had not been taking kxo529 mcg tablets of levothyroxine. She was only taking 50 mcg daily (two 25 mcg tablets). Her estimated weight based replacement dose of LT4 would be 188 - 212 mcg per day (according to the dose range of 1.4 mcg/kg/day to 1.6 mcg/kg/day at 139 kg). Therefore, I will have her start with 200 mcg daily. I called and spoke with Evita directly and informed her of this change. She voiced full understanding. Will plan to recheck TSH at her next follow-up with us in 3 months, to see if she requires dose adjustment at that time. LILIANA BERKOWITZ MD Coarse Wire Drawerstain wiper Section of Endocrinology [facility] documented in this encounter Plan of Treatment Not on filedocumented as of this encounter Procedures Procedure Name Priority Date/Time Associated Diagnosis Comme nts CREATININE STAT 08/19/2016 11:53 AM Type 2 diabetes melli tus Results for this EDT without complication, proced ure are in with long-term current the r esults use of insulin section. TSH STAT 08/19/2016 11:53 AM Hypothyroidism due to Results for this EDT Jl's thyroiditis proc edure are in the results section. HEMOGLOBIN A1C STAT 08/19/2016 11:53 AM Type 2 diabetes jose litus Results for this EDT without complication, proced ure are in with long-term current the r esults use of insulin section. documented in this encounter Results U Albumin/Cre Ratio (11/24/2016 1:49 PM EDT) P athologist Signature Alb/Cr Ratio, 6 0 - 29 [facility] Random mcg/mg Cr [facility] Comment: Reference Ranges: <30 mcg/mg: [...] 362 U Albumin Conc, Random 17.9 mg/L [facility] U Creatinine 297 mg/dL [facility] Specimen Anatomical Collection Method Collection Time Receive d Time (Source) Location / / Volume Laterality Urine specimen 11/24/2016 1:49 PM 017 2:02 (specimen) EDT PM EDT Resulting Agency Comment Spec In Lab Liliana Berkowitz MD URINE ORDERABLES Performing Organization Address City/State/ZIP Code Phon e Number [address] LDL Cholesterol, Direct (11/24/2016 1:49 PM EDT) P athologist Signature LDL Chol 166 <=190 [facility] Direct mg/dL [facility] Specimen Anatomical Collection Method Collection Time Receive d Time (Source) Location / / Volume Laterality Blood specimen 11/24/2016 1:49 PM 017 2:01 (specimen) EDT PM EDT Resulting Agency Comment Spec In Lab Liliana Berkowitz MD CHEMISTRY ORDERABLES Performing Organization Address City/[facility]/ZIP Code Phon e Number [address] (ABNORMAL) TSH (11/24/2016 1:49 PM EDT) P athologist Signature TSH 6.41 (H) 0.27 - 4.20 [facility] mlU/ML [facility] Specimen Anatomical Collection Method Collection Time Receive d Time (Source) Location / / Volume Laterality Blood specimen 11/24/2016 1:49 PM 017 2:01 (specimen) EDT PM EDT Resulting Agency Comment Spec In Lab Liliana Berkowitz MD CHEMISTRY ORDERABLES Performing Organization Address City/State/[place] [address] (ABNORMAL) Hemoglobin A1c (11/24/2016 1:49 PM EDT) Analysis Performed At Patho logist Time Signature Hemoglobin A1C 7.8 (H) 4.3 - 5.6 [facility] [...] Mellitus, Diabetes Care 2013; 36: Suppl. 1, S67-48 Est Avg Gluc 177 mg/dL [facility] Comment: eAG equivalents for HbA1c percentages: HbA1c(%) ?eAG(mg/dL) 6.0 ?126 6.5 ?140 7.0 ?154 7.5 ?169 8.0 ?183 8.5 ?197 9.0 ?212 9.5 ?226 10.0 ? 240 Limitations: The eAG calculation has not been validated on women, individuals below 18 years old and above 70 years old, and individuals with hemoglobinopathies. Additional resources are available on [facility] website. Angelo MULLEN, Ariel J, Bill R, et al. ??Tr anslating the A1C assay into estimated average glucose values. ??Diabetes Care 2008:31(8):0850-5684. Specimen Anatomical Collection Method Collection Time Receive d Time (Source) Location / / Volume Laterality Blood specimen 11/24/2016 1:49 PM 017 2:01 (specimen) EDT PM EDT Resulting Agency Comment Spec In Lab Liliana Berkowitz MD CHEMISTRY ORDERABLES Performing Organization Address [facility] [place] [address] Creatinine (08/19/2016 11:53 AM EDT) athologist Signature Creatinine 0.90 0.70 - 1.20 [facility] mg/dL [facility] Comment: Please note that the pediatric reference intervals supplied above were not validated at [facility]. Results from pediatri c patients should be interpreted in conjunction to the patient's age, height and muscle mass. Estimated GFR >60 >=60 [facility] Comment: This estimated GFR (eGFR) value was calc ulated using the MDRD equation which has been validated on patients between t he ages of 18 and 70. The MDRD should not be used to assess kidney function in patients < 18 years of age or in patients with extremes of body mass, or in patients with acute kidney failure. This value should be multiplied by 1.2 f or patients. For further information please copy and past e the following links into your internet browser. http://[employer].iAdvize/DHnkdep http://[employer]ize/DHMCnkf Specimen Anatomical Collection Method Collection Time Receive d Time (Source) Location / / Volume Laterality Blood specimen 08/19/2016 11:53 7 (specimen) AM EDT 12:07 PM EDT Resulting Agency Comment Spec In Lab Liliana Berkowitz MD CHEMISTRY ORDERABLES Performing Organization Address City/State/[place] [address] (ABNORMAL) Hemoglobin A1c (08/19/2016 11:53 AM EDT) [facility] Method Time Signature Hemoglobin A1C 11.4 (H) 4.3 - 5.6 [facility] [...] Mellitus, Diabetes Care 2013; 36: Suppl. 1, U67-16 Est Avg Gluc 280 mg/dL [facility] Comment: eAG equivalents for HbA1c percentages: HbA1c(%) ?eAG(mg/dL) 6.0 ?126 6.5 ?140 7.0 ?154 7.5 ?169 8.0 ?183 8.5 ?197 9.0 ?212 9.5 ?226 10.0 ? 240 Limitations: The eAG calculation has not been validated on women, individuals below 18 years old and above 70 years old, and individuals with hemoglobinopathies. Additional resources are available on [facility] website. Angelo MULLEN, Ariel J, Bill R, et al. ??Tr anslating the A1C assay into estimated average glucose values. ??Diabetes Care 2008:31(8):9065-6481. Specimen Anatomical Collection Method Collection Time Receive d Time (Source) Location / / Volume Laterality Blood specimen 08/19/2016 11:53 7 (specimen) AM EDT 12:07 PM EDT Resulting Agency Comment Spec In Lab Liliana Berkowitz MD CHEMISTRY ORDERABLES Performing Organization Address City/[facility]/[place] [address] (ABNORMAL) TSH (08/19/2016 11:53 AM EDT) P athologist Signature TSH 16.22 (H) 0.27 - [facility] 4.20 [facility] mlU/ML [facility] Specimen Anatomical Collection Method Collection Time Receive d Time (Source) Location / / Volume Laterality Blood specimen 08/19/2016 11:53 7 (specimen) AM EDT 12:07 PM EDT Resulting Agency Comment Spec In Lab Liliana Berkowitz MD CHEMISTRY ORDERABLES Performing Organization Address City/[facility]/[place] [address] documented in this encounter Visit Diagnoses Diagnosis Hypothyroidism due to Jl's thyroi ditis Type 2 diabetes mellitus without complic ation, with long-term current use of insulin documented in this encounter Care Teams News Production Supervisor Relationship Specialty Start Date End Date Marcia Dickens APRN PCP - General Family Medicine 10/30/15 [address] [place] [address] documented as of this encounter
--- OUTSIDE RECORDS SUMMARY | 2021-12-17 15:07 | XMS_ITS | Encounter Summary ---
:1975 Author Organization [facility] [place] [address] Care Team Providers Name Role Phone Marcia Dickens APRN Primary Care Provider Reason for Visit Reason Onset Date Comments Medical Care Coordination 08/20/2016 Encounter Details Date Type Department Care Team Description 08/20/2016 Telephone [facility] [place] [phone] Social History Tobacco Use Types Packs/Day Years Used Date Former Smoker Cigarettes 2 10 Quit: 09/05/19 11 Smokeless Tobacco: Never Used Comments: quits during Alcohol Use Standard Drinks/Week Comments No 0 (1 standard drink = 0.6 oz pure alcoho l) n/a Sex Assigned at Date Recorded Female 05/09/2020 7:27 PM EST documented as of this encounter Miscellaneous Notes Addendum Note - Liliana Berkowitz MD - 08/20/2016 2:16 PM EDT Addended by: LILIANA BERKOWITZ on: 08/20/2016 02:16 PM Modules accepted: Orders Telephone Encounter - Liliana Berkowitz MD - 08/20/2016 2:12 PM EDT Weight based estimated dose range would be 188 - 212 mcg daily, so as a precaution, with this information now available that she has only been taking 50 mcg daily, I will have her start at 200 mcg daily (instead of the previously planned 250 mcg), and recheck TSH in 3 months when she returns for follow-up, to assess for further need for dose adjustment. I called and spoke with Evita personally to inform her of this change in plan. She voiced full understanding. I also updated her egg caser Apolonia Thompson at [phone] via voice mail message on the above. LILIANA BERKOWITZ MD Livestock Laborerdistance education coordinator Section of Endocrinology [facility] Telephone Encounter - Denise Yip RN - 08/20/2016 1:31 PM EDT Received call from Evita's Spraying Machine Operator to discuss Levothyroxine dosing. As discussed in appointment yesterday, Evita was not taking 250 mcg daily as thought. Apolonia concerned about starting at 250 mcg dose since she has only been taking 50 mcg for quite a while. Return call. Message left stating that Dr Berkowitz had addressed the plan if it was correct that Evita was only taking 50 mcg. From yesterday note: Since she is supposed to take 2 different sized tablets (one 200 mcg tablet and two 25 mcg tablets),and her egg caser's records suggest she may not have picked up 200 mcg tablet scripts since November 2015, I asked her to double check her bottles at home to see if she might not have accidentally been leaving out the 200 mcg tablet from her daily LT4 dosing. If so, I will have her resume the doseshe was supposed to be on. If she has been taking the 200 mcg tablets, I will increase her LT4 to 275 mcg daily and plan to recheck TSH at next visit. The above was left as message. Reviewed s/s to watch for and report. That it was safe to start at previous dosing. Callback number given if Apolonia had any questions or further discussion documented in this encounter Plan of Treatment Not on filedocumented as of this encounter Visit Diagnoses Not on filedocumented in this encounter Care Teams Underwriting Intern Relationship Specialty Start Date End Date Marcia Dickens APRN PCP - General Family Medicine 10/30/[address] [place] [address] documented as of this encounter
--- OUTSIDE RECORDS SUMMARY | 2021-12-17 15:07 | XMS_ITS | Encounter Summary ---
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; [facility] MD Liliana Type 2 diabetes mellitus without complic ation, with long-term [place] [address] CENTER [phone] [place] [address] Social History Tobacco Use Types Packs/Day Years [...] Sign Reading Time Taken Comments Blood Pressure - - Pulse - - Temperature - - Respiratory Rate - - Oxygen Saturation - - Inhaled Oxygen Concentration - - Weight 142 kg (313 lb) 05/24/2016 3:47 PM EDT Height 175.3 cm (5' 9) 05/24/2016 3:47 PM EDT Body Mass Index 46.22 05/24/2016 3:47 PM EDT documented in this encounter Patient Instructions Patient InstructionsLiliana Berkowitz MD - 05/24/2016 4:00 PM EDT Start victoza 0.6 mg once daily for 2 weeks, then increase to 1.2 mg once daily for 2 weeks, then, increase to 1.8mg daily thereafter. If you get nauseated on the next dose up, you can cut back to the previous dose for a little bit longer, then try again. Continue current insulin doses for now - continue using the Lantus self- adjustment parameter Continue metformin twice daily for now. Follow-up in 3 months, come 1 hour early for blood draw & urine sample in the 3L lab. documented in this encounter Progress Notes Liliana Berkowitz MD - 05/24/2016 4:00 PM EDT Endocrinology Clinic Follow-up Visit Reason for Visit: Follow-up of Diabetes Mellitus Type 2, Jeffrey's hypothyroidism HISTORY OF PRESENT ILLNESS: Ms. Evita Singleton is a 41 y.o. year old lady with history significant for DM type 2 and Jeffrey's hypothyroidism, previously seen in our clinic by Dr. Mercado and Dr. Huntley in Nov 2015, at which time herinsulin doses were increased for her A1c of 9.8% and her LT4 dose was increased to 225 mcg daily forher TSH of 11.80. She is seeing me for the first time today, in follow-up of these issues. BG have been running in the 300s-500s for the past 2-3 months. Not on any steroids, getting synvisc injections in to the R knee, no steroids in the injection to her knowledge. Discussion with PCP about1 month ago made her realize she shouldn't inject insulin into the same spot - had 2 spots on either side of umbilicus that she was injecting into. She has been rotating insulin injections more since then, has noticed some mild improvement but still having BG in the 300s. Has had very dry mouth, dizzy, weak, cant concentrate. No hx of pancreatitis. Has had cholescytectomy. Date of Diagnosis: 2010 - GDM, 2013 - DM type 2 Last HgbA1c: 9.8% (11/26/15), 10.6% (October 2015) Current Diabetes Medication regimen: Lantus 57 units BID Novolog 1:5g + 1:30mg/dL above 150 mg/dL. Metformin XR 1000mg BID no GI side effects. FSBG regimen: TIDAC BGs have been 300s-500s. Hypoglycemia: none Diet: Physical Activity: Smoking: quit in 2010. History of complications 1) Nephropathy - Um:cr , sCr 0.67 GFR >60 (October 2015). 2) Neuropathy - +n/t for the past 1 month. No wounds or sore. 3) Retinopathy - Last ophtho evaluation every 6 months - +DR being followed - has not had laser rx yet 4) CV disease - LDL PAST MEDICAL HISTORY: Patient Active Problem List [...] impingement syndrome 09/03/2010 ??? Hypertension MEDICATIONS: Medications 05/24/16 0171 Medication Sig Taking? levothyroxine (SYNTHROID) 25 mcg Tablet Take 1 [...] HPI. PHYSICAL EXAM: Vitals Office Visit from 05/24/2016 in Endocrinology Weight - Scale (!) 142 kg (313 lb) Height 175.3 cm (5' 9) BSA (Calculated - sq m) 2.63 sq meters BMI (Calculated) 46.3 Gen: NAD, AAOx3, speaking full sentences, calm pleasant demeanor, morbidly obese habitus. Foot exam: no wounds or sores. ASSESSMENT/PLAN: 1. DM type 2 - poorly controlled on massive doses of insulin. --start victoza - ramp up every 2 [...] or to try to lower insulin requirement. --will check A1c for new baseline, Cr today. 2. Jeffrey's hypothyroidism - on LT4 225 mcg daily since Fall 2015, will recheck TSH today to reassess dose adequacy. 3. Follow-up in 3 months, labs 1 hour prior to appt (A1c, LDL, Um:cr). LILIANA BERKOWITZ MD Director Nicusteam tender Section of Endocrinology [facility] documented in this encounter Miscellaneous Notes Addendum Note - Shanice Amaro - 05/24/2016 4:49 PM EDT Addended by: SHANICE AMARO on: 05/24/2016 04:49 PM Modules accepted: Orders documented in this encounter Plan of Treatment Scheduled Orders Name Type Priority Associated Diagnoses Order S chedule TSH Lab Routine Hypothyroidism due to Expect ed: 07/23/2016 Jeffrey's thyroiditis (Frank roximate), Expires: 01/22/2017 Hemoglobin A1c Lab STAT Type 2 diabetes mellitus E xpected: 07/23/2016 without complication, with ( Approximate), Expires: long-term current use of insulin Creatinine Lab STAT Type 2 diabetes mellitus Exp ected: 07/23/2016 without complication, with ( Approximate), Expires: long-term current use of insulin documented as of this encounter Procedures Procedure Name Priority Date/Time Associated Diagnosis Comme nts CREATININE STAT 05/24/2016 5:02 PM Type 2 diabetes Result s for this EDT mellitus without procedure a re in complication, with the resul ts long-term current use sectio n. of insulin TSH STAT 05/24/2016 5:02 PM Hypothyroidism due to Results for this EDT Jeffrey's procedure are i n thyroiditis the results section. T4, FREE STAT 05/24/2016 5:02 PM Hypothyroidism due to Results for this EDT Jeffrey's procedure are i n thyroiditis the results section. LDL CHOLESTEROL, STAT 05/24/2016 5:02 PM Type 2 diabetes Re sults for this DIRECT EDT mellitus without procedure a re in complication, with the resul ts long-term current use sectio n. of insulin HEMOGLOBIN A1C Routine 05/24/2016 5:02 PM Type 2 diabetes Resu lts for this EDT mellitus without procedure a re in complication, with the resul ts long-term current use sectio n. of insulin documented in this encounter Results LDL Cholesterol, Direct (05/24/2016 5:02 PM EDT) athologist Signature LDL Chol 119 <=190 [facility] Direct mg/dL [facility] Specimen Anatomical Collection Method Collection Time Receive d Time (Source) Location / / Volume Laterality Blood specimen 05/24/2016 5:02 PM 017 5:07 (specimen) EDT PM EDT Resulting Agency Comment Spec In Lab Liliana Berkowitz MD CHEMISTRY ORDERABLES Performing Organization Address City/State/[place] [address] (ABNORMAL) Creatinine (05/24/2016 5:02 PM EDT) athologist Signature Creatinine 1.02 0.70 - 1.20 [facility] mg/dL [facility] Comment: Please note that the pediatric reference intervals supplied above were not validated at [facility]. Results from pediatri c patients should be interpreted in conjunction to the patient's age, height and muscle mass. Estimated GFR 59 (L) >=60 [facility] Comment: This estimated GFR (eGFR) [...] the following links into your internet browser. [email or web address] VINITAnkf Specimen Anatomical Collection Method Collection Time Receive d Time (Source) Location / / Volume Laterality Blood specimen 05/24/2016 5:02 PM 017 5:07 (specimen) EDT PM EDT Resulting Agency Comment Spec In Lab Liliana Berkowitz MD CHEMISTRY ORDERABLES Performing Organization Address City/State/[place] [address] (ABNORMAL) Hemoglobin A1c (05/24/2016 5:02 PM EDT) [facility] Method Time Signature Hemoglobin A1C 11.4 (H) 4.3 - 5.6 [facility] Comment: Reference Range: 4.3 - [...] Mellitus, Diabetes Care 2013; 36: Suppl. 1, E94-49 Est Avg Gluc 280 mg/dL [facility] Comment: eAG equivalents for HbA1c percentages: HbA1c(%) ?eAG(mg/dL) 6.0 ?126 6.5 ?140 7.0 ?154 7.5 ?169 8.0 ?183 8.5 ?197 9.0 ?212 9.5 ?226 10.0 ? 240 Limitations: The eAG calculation has not been validated on women, individuals below 18 years old and above 70 years old, and individuals with hemoglobinopathies. Additional resources are available on [facility] website: [email or web address] VINITAadacalc Angelo MULLEN, Ariel Javier, Bill R, et al. ??Tr anslating the A1C assay into estimated average glucose values. ??Diabetes Care 2008:31(8):4700-2892. Specimen Anatomical Collection Method Collection Time Receive d Time (Source) Location / / Volume Laterality Blood specimen 05/24/2016 5:02 PM 017 5:07 (specimen) EDT PM EDT Resulting Agency Comment Spec In Lab Liliana Berkowitz MD CHEMISTRY ORDERABLES Performing Organization Address City/State/ZIP Code [place] [address] (ABNORMAL) T4, free (05/24/2016 5:02 PM EDT) P athologist Signature Free T4 0.87 (L) 0.93 - 1.70 SINDY [place] ng/dL [facility] Specimen Anatomical Collection Method Collection Time Receive d Time (Source) Location / / Volume Laterality Blood specimen 05/24/2016 5:02 PM 017 5:07 (specimen) EDT PM EDT Resulting Agency Comment Spec In Lab Liliana Brekowitz MD CHEMISTRY ORDERABLES Performing Organization Address City/State/[place] [address] (ABNORMAL) TSH (05/24/2016 5:02 PM EDT) P athologist Signature TSH 13.32 (H) 0.27 - [facility] 4.20 [facility] mcIU/mL [facility] Specimen Anatomical Collection Method Collection Time Receive d Time (Source) Location / / Volume Laterality Blood specimen 05/24/2016 5:02 PM 017 5:07 (specimen) EDT PM EDT Resulting Agency Comment Spec In Lab Liliana Berkowitz MD CHEMISTRY ORDERABLES Performing Organization Address City/[facility]/[place] [address] documented in this encounter Visit Diagnoses Diagnosis Hypothyroidism due to Jeffrey's thyroi ditis Type 2 diabetes mellitus without complic ation, with long-term current use of insulin documented in this encounter Care Teams Waiter/Waitress Buffet Relationship Specialty Start Date End Date Marcia Dickens, BLANCA PCP - General Family Medicine 10/30/[address] [place] [address] documented as of this encounter
--- OUTSIDE RECORDS SUMMARY | 2021-12-17 15:07 | XMS_ITS | Encounter Summary ---
:1975 Author Organization [facility] [place] [address] Care Team Providers Name Role Phone Marcia Dickens APRN Primary Care Provider Encounter Details Date Type Department Care Team Description 06/10/2020 Telephone Dermatology at [facility] Lisbet Hannah MD [address] [place] [address] [facility] [phone] [place], [place] [address] (Wo rk) Social History Tobacco [...] this encounter Miscellaneous Notes Telephone Encounter - Bria Chow - 06/10/2020 3:11 PM EDT Called Evita Mary Areli to schedule 4 week scalp f/u with Dr. Hannah. Left voicemail with callback of [phone] to schedule documented in this encounter Plan of Treatment Not on filedocumented as of this encounter Visit Diagnoses Not on filedocumented in this encounter Care Teams Teacher Of The Deaf/Hard Of Hearing Relationship Specialty Start Date End Date Marcia Dickens APRN PCP - General Family Medicine 10/30/[address] [place] [address] documented as of this encounter
--- OUTSIDE RECORDS SUMMARY | 2021-12-17 15:07 | XMS_ITS | Encounter Summary ---
:1975 Author Organization [facility] Address [address] [place] [address] Care Team Providers Name Role Phone Marcia Dickens APRN Primary Care Provider Encounter Details Date Type Department Care Team Description 02/23/2017 Laboratory Appointment Lab 3L [facility] Type 2 diabetes [facility] mellitus without [facility] complicat ion, with Drive long-term current use [place], [place] of insulin [phone] Social History Tobacco Use Types Packs/Day Years [...] Priority Date/Time Associated Diagnosis Comme nts TSH Routine 02/23/2017 3:36 PM Type 2 diabetes Result s for this EST mellitus without procedure a re in the complication, with results s ection. long-term current use of insulin HEMOGLOBIN A1C Routine 02/23/2017 3:36 PM Type 2 diabetes Resu lts for this EST mellitus without procedure a re in the complication, with results s ection. long-term current use of insulin documented in this encounter Results (ABNORMAL) TSH (02/23/2017 3:36 PM EST) P athologist Signature TSH 10.12 (H) 0.27 - [facility] 4.20 [facility] mlU[facility]ML [facility] Specimen Anatomical Collection Method Collection Time Receive d Time (Source) Location / / Volume Laterality Blood specimen 02/23/2017 3:36 PM 017 3:55 (specimen) EST PM EST Resulting Agency Comment Spec In Lab Kary Ashford BIOINFORMATICS ENGINEER CHEMISTRY ORDERABLES Performing Organization Address City/State/[place] [address] (ABNORMAL) Hemoglobin A1c (02/23/2017 3:36 PM EST) Analysis Performed At [facility] Time Signature Hemoglobin A1C 8.0 (H) 4.3 - 5.6 [facility] Comment: Reference Range: 4.3 [...] Mellitus, Diabetes Care 2013; 36: Suppl. 1, K17-69 Est Avg Gluc 183 mg/dL [facility] Comment: eAG equivalents for HbA1c percentages: HbA1c(%) ?eAG(mg/dL) 6.0 ?126 6.5 ?140 7.0 ?154 7.5 ?169 8.0 ?183 8.5 ?197 9.0 ?212 9.5 ?226 10.0 ? 240 Limitations: The eAG calculation has not been validated on women, individuals below 18 years old and above 70 years old, and individuals with hemoglobinopathies. Additional resources are available on [facility] website. Angelo MULLEN, Ariel J, Bill R, et al. ??Tr anslating the A1C assay into estimated average glucose values. ??Diabetes Care 2008:31(8):6040-8084. Specimen Anatomical Collection Method Collection Time Receive d Time (Source) Location / / Volume Laterality Blood specimen 02/23/2017 3:36 PM 017 3:55 (specimen) EST PM EST Resulting Agency Comment Spec In Lab Kary Ashford APRN CHEMISTRY ORDERABLES Performing Organization Address City/State/[place] [address] documented in this encounter Visit Diagnoses Diagnosis Type 2 diabetes mellitus without complic ation, with long-term current use of insulin documented in this encounter Care Teams Nurse Staff Relationship Specialty Start Date End Date Marcia Dickens APRN PCP - General Family Medicine 10/30/[address] [place] [address] documented as of this encounter
--- OUTSIDE RECORDS SUMMARY | 2021-12-17 15:07 | XMS_ITS | Encounter Summary ---
:1975 Author Organization [facility] [place] [address] Care Team Providers Name Role Phone Denise Darnell MD Primary Care Provider Encounter Details Date Type Department Care Team Description 01/18/2013 Telephone Internal Medicine at [facility] [place] [address] Social History Tobacco Use Types Packs/Day Years Used Date Former Smoker Cigarettes 2 10 Quit: 09/05/19 11 Smokeless Tobacco: Never Used Comments: quits during Alcohol Use Standard Drinks/Week Comments No 0 (1 standard drink = 0.6 oz pure alcoho l) n/a Sex Assigned at Date Recorded Female 05/09/2020 7:27 PM EST documented as of this encounter Miscellaneous Notes Addendum Note - Patricia Grove RN - 01/18/2013 6:06 PM EST Addended by: PATRICIA GROVE on: 01/18/2013 06:06 PM Modules accepted: Orders Telephone Encounter - Patricia Grove RN - 01/18/2013 4:58 PM EST Luis Zaidi, Was wondering if you could help me out with this - I saw this lady a couple of days ago and her TSHcame back high at 13. I called her and I sent her a myD-H message stating that I wanted to talk withher and make sure that she was taking her levothyroxine properly (or that she was taking it at all -she told me she takes 150mcg QD). I haven't heard back from her and I was wondering if you could give her a call today to follow-up when you have a chance. If she is taking the synthroid properly, her dose needs to be increased from 150mcg daily to 175mcgdaily. I haven't ordered this yet because I wanted to see if she was taking it. I'm at pager [phone] ifyou have any questions/concerns. Thank you so much, really appreciate it! Lou Per nurse: Called Pt and left message to call me re above . Need to verify dose taking Make sure shetakes it daily on empty stomach. If taking 150 mcg dose Increase and call in New script with higher dose And should be check TSH again 6-8 weeks My message from pt with nurse response: Hi , Dr Vega said you should start back at usual dose 150 mcg per day , take on empty stomach. Once you have restarted , you should have your thyroid level rechecked 6- 8 weeks. Please roula your calender and can you let me know when you have had drawn lab? Let me know if you need a new script or have any questions. Ignore my message I left on your home phone today. Patricia Castro RN ===View-only below this line=== ----- Message ----- From: EVITA SINGLETON Sent: 01/18/2013 2:22 PM EST To: LOU VEGA MD Subject: Test Results Question I haven't been taking my pills for a month, because I have a hard time taking pills and I wanted to wait until I was settled in from a move from [place] to [place] and finding day care for my son. Now that those are off my list of STRESS I can start back up with taking all my pills, with the appropriate dosage on a daily basis. When I have too much on my plate, I get too overwhelmed, and I would've missed taking my pills. Where should I start for my thyroid pill? Everything else for my pills I will take the normal dosage. documented in this encounter Plan of Treatment Not on filedocumented as of this encounter Visit Diagnoses Diagnosis Hypothyroid - Primary Unspecified hypothyroidism documented in this encounter Care Teams Acreage Reporter Relationship Specialty Start Date End Date Denise Darnell MD PCP - General 11/18/11 05/08/15 [facility] [place] [address] documented as of this encounter
--- OUTSIDE RECORDS SUMMARY | 2021-12-17 15:07 | XMS_ITS | Encounter Summary ---
:1975 Author Organization [facility] [place] [address] Care Team Providers Name Role Phone Marcia Dickens APRN Primary Care Provider Reason for Visit Reason Comments Follow-up Encounter Details Date Type Department Care Team Description 06/30/2020 Office Visit Dermatology at Lisbet Vogel [facility] [address] dermatosis of scalp [address] [place] [address] [facility] [place], [place] [address] Social History Tobacco Use Types [...] encounter Progress Notes Lisbet Hannah MD - 06/30/2020 11:40 AM EDT Images from the original note were not included. DEPARTMENT OF DERMATOLOGY Medical Dermatology Clinic Provider: Lisbet Hannah MD Patient's preferred name Evita Preferred contact method for results [] myDH [] Letter [x] Phone: Cell Detailed phone message OK? Yes Are there any other people with whom we may discuss your care? Mom PAST MEDICAL HISTORY Y/N Date, location, treatment Melanoma N Dysplastic nevi N SCC N BCC N AKs N Blistering sunburns or tanning bed use N Other relevant past medical history (i.e. eczema, psoriasis, birthmarks, immunosuppression) N FAMILY HISTORY Y/N If yes, details Melanoma N NMSC Y Grandfather Other relevant family history N SOCIAL HISTORY Hobbies: None Other: Diagnosis or treatment significantly limited by social determinants of health? No History of Present Illness: Evita Singleton is a 45 y.o. year old. Patient returns to clinic today forevaluation of lesion on the scalp that is being treated with bactroban and triamcinolone. She finished 2 weeks of Doxycycline. Reports improvement with current interventions. 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 No hair growth noted in that area. - Punch biopsy on 05/25/20 showed parakeratosis with impetiginized scale crust, adjacent epidermal hyperplasia, dermal fibrosis. - S/p 14 days of doxycycloine 100 mg BID - S/p 6 weeks of triamcinolone and mupirocin - Recommended vaseline BID to the area. Discontinue triamcinolone and mupirocin. Photo was taken and charted with patient's verbal consent. RTC: 6 weeks and PRN Scribe attestation: Loren Benedict LPN who has performed the documentation for this encounter in the presence of and acting as a scribe for Lisbet Hannah MD I performed the above scribed service and agree with the accuracy of the documentation in this encounter. Reviewed and signed by: Lisbet Hannah MD Dermatology [facility] Mian Dudley MD - 06/30/2020 11:40 AM EDT I directly supervised Dr. Hannah in the care of this patient. I saw and evaluated this patient with Dr. Hannah. He presented the history and physical exam details to me, then we saw the patient together and I confirmed these findings. I agree with details as written. My physical examination confirms Dr. Hannah's findings. The assessment and plan were formulated in discussion with me at the time of visit and I agree with them as documented. MIAN DUDLEY MD FAAD Staff Physician documented in this encounter Plan of Treatment Not on filedocumented as of this encounter Visit Diagnoses Diagnosis Erosive pustular dermatosis of scalp documented in this encounter Care Teams Hole Filler Relationship Specialty Start Date End Date Marcia Dickens, DESK MAKER PCP - General Family Medicine 10/30/[address] [place] [address] documented as of this encounter
--- OUTSIDE RECORDS SUMMARY | 2021-12-17 15:07 | XMS_ITS | Encounter Summary ---
:1975 [place] [address] Care Team Providers Name Role Phone Marcia Dickens APRN Primary Care Provider Encounter Details Date Type Department Care Team Description 12/18/2015 Orders Only Endocrinology at [facility] C Joaquin Mercado MD [facility] [place] [address] ENDOCRINOLOGY DEPT [phone] [place], [place] [address] (Wo rk) Social History Tobacco [...] on filedocumented in this encounter Care Teams Team Driver Relationship Specialty Start Date End Date Marcia Dickens APRN PCP - General Family Medicine 10/30/[address] [place], [place] [id number] documented as of this encounter
--- OUTSIDE RECORDS SUMMARY | 2021-12-17 15:07 | XMS_ITS | Encounter Summary ---
:1975 Author Organization [facility] [place] [address] Care Team Providers Name Role Phone Marcia Dickens APRN Primary Care Provider Encounter Details Date Type Department Care Team Description 11/27/2015 Orders Only Endocrinology at [facility] C Joaquin Mercado MD Hypothyroidism, [facility] [place] [address] [place] [address] ENDOCRINOLOGY DEPT [place], [place] [address] Social History Tobacco Use Types [...] this encounter Visit Diagnoses Diagnosis Hypothyroidism, unspecified type documented in this encounter Care Teams Graphics Coordinator Relationship Specialty Start Date End Date Marcia Dickens APRN PCP - General Family Medicine 10/30/[address] [place], [place] [address] documented as of this encounter
--- OUTSIDE RECORDS SUMMARY | 2021-12-17 15:07 | XMS_ITS | Encounter Summary ---
:1975 Author Organization [facility] [place] [address] Care Team Providers Name Role Phone Marcia Dickens APRN Primary Care Provider Encounter Details Date Type Department Care Team Description 01/10/2018 Office Visit Endocrinology at [facility] Diane Berkowitz, Hypothyroidism, unspecified type; [facility] MD Liliana Diabetes mellitus type [address] [place] [address] [facility] [phone] ENDOCRINOLOGY [place], [place] [address] Social History Tobacco Use Types [...] Pulse 76 01/10/2018 12:54 PM EST Temperature - - Respiratory Rate 20 01/10/2018 12:54 PM EST Oxygen Saturation 99% 01/10/2018 12:54 PM EST Inhaled Oxygen Concentration - - Weight 117.8 kg (259 lb 12.8 oz) 01/10/2018 12:54 PM EST Height 170.2 cm (5' 7) 01/10/2018 12:54 PM EST Body Mass Index 40.69 01/10/2018 12:54 PM EST documented in this encounter Patient Instructions Patient InstructionsLiliana Berkowitz MD - 01/10/2018 1:00 PM EST ?? Increase Lantus from 32 units twice daily to 37 units twice daily. ?? Let Dr. Berkowitz know if you start having low blood sugars (under 70) with this dose change. ?? Also Let Dr. Berkowitz know if your fasting blood sugars before breakfast are still running above 150 some days. ?? Continue with metformin XR, victoza, and novolog. ?? Space lunch by at least 30 min after your levothyroxine. ?? Continue with diabetic-friendly dietary changes. Continue with exercise program. Good work, keep it up! documented in this encounter Progress Notes Liliana Berkowitz MD - 01/10/2018 1:00 PM EST Endocrinology Clinic Follow-up Visit Reason for Visit: Follow-up of Diabetes Mellitus Type 2, hypothyroidism HISTORY OF PRESENT ILLNESS: Ms. Evita Singleton is a 42 y.o. year old lady with history significant for DM type 2 and Jeffrey's hypothyroidism. Her last diabetes visit was with me, 3 months ago, in Oct 2017, at which time she hadbeen completely off of all her meds for 3 months because she got overwhelmed with all of her meds which made her stop everything, but at the time of her visit was motivated to get back on track. Therefore, we planned for her to return in 3 months for re-evaluation on her resumed regimen, to reassess. The plan at last visit was as follows: ?? Resume all meds, with the following [...] bring results with her to her appointment. She is thinking the metformin XR might be giving her loose stools, but she is reluctant to discontinue it. She has gotten much more organized about her medications and she is finding that it makes things a lot more manageable. Getting the devi didn't end up working out with her insurance, so she stuck with the Lantu 32 units twice daily. She also just moved so that stress is out of the way. She is doing an exercise program at [facility] for 1 hour three times a week. Her new year's resolution is to not have any unhealthy food in the house. She is doing this not onlyfor herself but also for her son, whom she wants to eat less processed food. She has arranged for someone from [facility] to come to their home to teach her how to cook healthy food and give her ideas for healthy snacks. Taking levothyroxine 200 mcg daily, one tablet every day. Date of Diagnosis: 2010 - GDM, 2013 - DM type 2 ? Last HgbA1c: 9.7% (01/10/18),12.4% (Oct 2017), 7.8% (02/23/17), 11.4% (08/19/16), 11.4% (05/24/16), 9.8% (11/26/15), 10.6% (October 2015) ? Current Diabetes Medication regimen: victoza 1.8mg SC daily Lantus 32??units BID Novolog 1:5g + 1:15mg/dL above 150 mg/dL (uses written out scale). Metformin XR 1000mg BID no GI side effects. ? FSBG regimen: TIDAC Fasting - 120s - 220s about once a week BG 300s, when I go overboard with something for dinner Pre-lunch - 180s Pre-supper - 200s ? Hypoglycemia: none ? Diet: ? Physical Activity: ? Smoking: quit in 2010. ? History of complications 1) Nephropathy - Um:cr ?, sCr ??0.73??GFR >60 (01/10/18) 2) Neuropathy - Monofilament exam WNL by Kary Ashford, AGENT BROKER Nov 2015. 3) Retinopathy - Last ophtho evaluation every 6 months, last in Fall 2017 - +DR being followed - hasnot had laser rx yet was told it's stable last visit. 4) CV disease - LDL 119 (05/24/16), 166 (Nov 2016), 152 (01/10/18). Taking Lipitor 40mg daily. PAST MEDICAL HISTORY: Patient Active Problem List Diagnosis Date Noted ??? Diabetes mellitus type 2 in obese Priority: High ??? Hypothyroidism Priority: High ??? BMI 40.0-44.9, adult Priority: High ??? Depression Priority: Medium ??? GERD (gastroesophageal reflux disease) Priority: Low ??? Vulvar abscess 09/29/2016 ??? Chronic urticaria 09/21/2012 ??? Angioedema 09/20/2012 ??? HALEY (obstructive sleep apnea) 05/28/2012 ??? Hypertension MEDICATIONS: Medications 01/10/18 1313 Medication Sig Taking? insulin glargine 300 unit/mL (3 mL) Insulin Pen Inject 64 Units subcutaneously daily. Yes liraglutide (VICTOZA) 0.6 mg/0.1 mL (18 mg/3 mL) Pen Injector Inject 1.8 mg subcutaneously daily. ICD 10 Code: E11.69 Yes levothyroxine (SYNTHROID) 200 mcg Tablet Take 1 tablet by mouth daily. 1 tablet daily 6 days per week and 2 tablets one day per week. Yes metFORMIN (GLUCOPHAGE-XR) 500 mg Tablet Sustained Release 24 hr Take 2 tablets by mouth 2 times daily. Yes hydroCHLOROthiazide (HYDRODIURIL) 12.5 mg Tablet Take 12.5 mg by mouth daily. Yes loratadine (CLARITIN) 10 mg Tablet Take 10 mg by mouth daily. Yes naproxen (NAPROSYN) 500 mg Tablet Take 500 mg by mouth 2 times daily. Yes lisinopril (PRINIVIL;ZESTRIL) 5 mg Tablet Take 5 mg by mouth daily. Yes atorvastatin (LIPITOR) 40 mg Tablet Take [...] cream Apply topically 2 times daily. Yes multivitamin (THERAGRAN) tablet Take 1 tablet by mouth daily. Yes ALLERGIES: Allergies Allergen Reactions ??? Latex Anaphylaxis ??? Fentanyl Other (See Comments) Feels limp and as if outside of herself ??? Sulfa (Sulfonamide Antibiotics) Anaphylaxis and Hives ??? Ambien [Zolpidem] Other (See Comments) Sleep walks SOCIAL HISTORY: Social History Tobacco Use Smoking Status Former Smoker ??? Packs/day: 2.00 ??? Years: 10.00 ??? Pack years: 20.00 ??? Types: Cigarettes ??? Last attempt to quit: 09/04/2010 ??? Years since quittin.3 Smokeless Tobacco Never Used Tobacco Comment quits during FAMILY HISTORY: Family History Relation Problem Age of Onset REVIEW OF SYSTEMS: All 12 systems reviewed and negative except as noted per HPI. PHYSICAL EXAM: Vitals Office Visit from 01/10/2018 in Endocrinology at [place] Weight 117.8 kg (259 lb 12.8 oz) Height 170.2 cm (5' 7) BSA (Calculated - sq m) 2.36 sq meters BMI (Calculated) 40.69 Heart Rate 76 Resp 20 BP 139/83 SpO2 99 % Foot exam: normal sensation to monofilament, thick callus at ball of each foot. No onychomycosis. 2+DP pulses. ASSESSMENT: 42 yo F with DM type 2 and hypothyroidism, complicated by prolonged periods of noncompliance with medications, but is back on track since her last visit 3 months ago, and doing very well with lifestyle changes and getting organized, which has helped her manage her medications more easily. Her A1c has responded nicely with a decrease from 12.4% to 9.7% (almost 3 percentage points!), but isstill above goal, which would be closer to 7.0%. From the FSBG she reported today, she seems to be having elevated fasting BG, so she has room to increase her Lantus dose. This change should also ameliorate her slightly elevated pre-lunch and pre-supper BG as well, so we will make this the only changein her diabetes medication regimen today. Her LDL is still above goal at 152 (goal for a diabetic would be <100), despite taking lipitor 40mg daily. I am still awaiting her TSH level today - if underreplaced on LT4, this could elevated LDL. Also, she will be making a lot of additional dietary optimization in the near future, so will postpone lipitor dose changes and reassess LDL next visit. BP is at goal. PLAN: ?? Increase Lantus from 32 units twice daily to 37 units twice daily. ?? Continue current Novolog, victoza, and metformin XR. She wishes to continue with metformin XR fornow. ?? Space lunch by at least 30 min from your levothyroxine. Await TSH level from today to ascertain LT4 dose adequacy. ?? Will postpone lipitor dose increase, since she will be making a lot of dietary changes in the near future. Will recheck LDL next visit. ?? follow-up with Kary Ashford APRN in 3 months, labs 1 hour prior. 25 min of this 40 min face to face visit was spent in counseling the patient on DM mgmt. LILIANA BERKOWITZ MD Unit Aide Techcorrective therapy aide teacher Section of Endocrinology [facility] documented in this encounter Plan of Treatment Not on filedocumented as of this encounter Visit Diagnoses Diagnosis Hypothyroidism, unspecified type Diabetes mellitus type 2 in obese Type II or unspecified type diabetes jose litus without mention of complication, not stated as uncontrolled documented in this encounter Care Teams Rubber Goods Finisher Relationship Specialty Start Date End Date Marcia Dickens APRN PCP - General Family Medicine 10/30/[address] [place] [address] (work) documented as of this encounter
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
--- OUTSIDE RECORDS SUMMARY | 2021-12-17 15:07 | XMS_ITS | Encounter Summary ---
:1975 Author Organization [facility] Address [address] [address] Care Team Providers Name Role Phone Marcia Dickens APRN Primary Care Provider Reason for Visit Reason Comments Follow-up Encounter Details Date Type Department Care Team Description 10/18/2016 Office Visit Obstetrics and Brandy Vega Vulvar a bscess; [place]cology [place] [facility] Diabetes mellitus type 2 in obese; [facility] BMI 40.0-44.9, adult [address] [place] OBSTETRICS & [id number] GYNECOLOGY [phone] [place], [place] [address] Social History Tobacco Use Types [...] Sign Reading Time Taken Comments Blood Pressure 136/76 10/18/2016 10:33 AM EDT Pulse 68 10/18/2016 10:33 AM EDT Temperature 36.6 ??C (97.9 ??F) 10/18/2016 10:33 AM EDT Respiratory Rate 18 10/18/2016 10:33 AM EDT Oxygen Saturation 97% 10/18/2016 10:33 AM EDT Inhaled Oxygen Concentration - - Weight 123.9 kg (273 lb 1.6 oz) 10/18/2016 10:33 AM EDT Height 175.3 cm (5' 9) 10/18/2016 10:33 AM EDT Body Mass Index 40.33 10/18/2016 10:33 AM EDT documented in this encounter Progress Notes Brandy Vega MD - 10/18/2016 10:45 AM EDT [facility] Progress Note ID: [id number] y.o.??female,??with a past medical history significant for poorly controlled type 2 diabetes on insulin, who presents to [facility] [place] transport from outside hospital for vulvar cellulitis, admitted from [facility] from 09/28/2016-09/30/2016. S: She was last seen 2 weeks ago in the office by myself, and ongoing wick changes with VNA as well as po clindamycin was recommended. She is in good spirits today. She reports sugar control improved, generally <120. VNA has changedher wick daily. No drainage. Tomorrow will be her last day of oral clindamycin. Feeling better. O: Vitals: 10/18/16 1033 BP: 136/76 Pulse: 68 Resp: 18 Temp: 36.6 ??C (97.9 ??F) Gen: NAD, pleasant Vulva: vulva swelling has resolved, small 1 cm incision seen that is starting to heal over. Micro: Component Results ? Component Value ? Body Fluid Culture (Abnormal) No growth ? Gram Stain (Abnormal) Few White Blood Cells seen Moderate Gram Positive Cocci seen A/P: 41 y.o. with IDT2DM with R vulvar abscess resolved after I+D, wick changes, and clinda.Culture not definitive, some moderate G+ cocci, Staph versus Strep. - Stop VNA - Complete clinda - Continue glycemic control, to see endocrine on 11[place]24 at [facility] - Work note provided until 10/25/2016 - return to [facility] clinic prn Discussed with attending BRANDY Peterson MD PGY-4 Jm Ding MD - 10/18/2016 10:45 AM EDT Evita Hernandez Areli was discussed with me at the time of the visit or immediately after the visit. The assessment and plan were formulated in discussion with me and I agree with them as documented. I have reviewed the history, physical exam, assessment and plan with the resident. JM DING MD documented in this encounter Plan of Treatment Not on filedocumented as of this encounter Visit Diagnoses Diagnosis Vulvar abscess Other abscess of vulva Diabetes mellitus type 2 in obese Type II or unspecified type diabetes jose litus without mention of complication, not stated as uncontrolled BMI 40.0-44.9, adult Body Mass Index 40.0-44.9, adult documented in this encounter Care Teams Shuttle Preparation Supervisor Relationship Specialty Start Date End Date Marcia Dickens, LIGHTER PCP - General Family Medicine 10/30/[address] [place] [address] documented as of this encounter
--- OUTSIDE RECORDS SUMMARY | 2021-12-17 15:08 | XMS_ITS | Encounter Summary ---
:1975 [place] [address] Care Team Providers Name Role Phone Denise Darnell MD Primary Care Provider Encounter Details Date Type Department Care Team Description 06/07/2012 Hospital Encounter Laboratory Nan Dunn, [facility] adult [facility] [address] [place], [place] [id number] [place] [address] [phone] Social History Tobacco Use Types Packs/Day Years [...] Sig Dispensed Refills Start Date End Date multivitamin (THERAGRAN) Take 1 tablet by 0 tablet mouth daily. lisinopril Take 1 tablet by 30 tablet 12 05/25/2012 06/14/19 13 (PRINIVIL;ZESTRIL) 5 mg mouth daily. tablet FLUoxetine (PROZAC) 20 mg Take 1 capsule by 90 capsule 3 06/201211/30/2013 capsule mouth daily. levothyroxine (SYNTHROID) Take 1 tablet by 90 tablet 3 06/201206/12/2012 125 mcg mouth daily. tabletIndications: Obesity Pantoprazole (PROTONIX) Take 40 mg by mouth 90 each 3 06/201211/30/2013 40 mg GrPSIndications: daily. GERD (gastroesophageal reflux disease) SUMAtriptan (IMITREX) 50 Take 1 tablet by 18 tablet 0 04/1109/21/2012 mg tablet mouth as needed for Migraine (migraine 50-100 mg--may repeat after 2h (not to exceed 200 mg in 24 hours)). levothyroxine (SYNTHROID) Take 1 tablet by 30 tablet 12 08/0606/12/2012 25 mcg tablet mouth daily. naproxen (NAPROSYN) 250 Take 1 tablet by 0 201109/20/2012 mg tablet mouth 2 times daily (with meals). acetaminophen (TYLENOL Take 650 mg by 0 10/18/2016 ARTHRITIS PAIN) 650 mg CR mouth every 8 hours tablet as needed. Do not exceed 6 tabs in 24 hours documented as of this encounter Plan of Treatment Not on filedocumented as of this encounter Procedures Procedure Name Priority Date/Time Associated Diagnosis Comme nts CMP W/FASTING Routine 06/07/2012 10:20 Routine adult health Re sults for this GLUCOSE AM EDT maintenance procedure are i n the results section. TSH Routine 06/07/2012 10:20 Routine adult health Res ults for this AM EDT maintenance procedure are i n the results section. HEMOGLOBIN A1C Routine 06/07/2012 10:20 Routine adult health R esults for this AM EDT maintenance procedure are i n the results section. LIPID PANEL (REFLEX Routine 06/07/2012 10:20 Routine adult hea lth Results for this DIRECT LDL) AM EDT maintenance procedure are i n the results section. documented in this encounter Results (ABNORMAL) Lipid panel (fasting) (06/07/2012 10:20 AM EDT) P athologist Signature Chol, Total 184 <=199 mg/dL [facility] Comment: Recommendations of the NCEP Adult Treatm ent Panel for the following risk cutoff thresholds for the [place] populatio n: Desirable: <200 mg/dL Borderline High: 200-239 mg/dL High: > or = 240 mg/dL Triglycerides 199 (H) <=149 mg/dL [facility] Comment: Reference Range: Normal triglycerides: ??<150 mg/dL Borderline high: ??150-199 mg/dL High: ??200-499 mg/dL Very high: ??>dd=206 mg/dL KEITH 2001; 285(19):[phone] HDL 36 (L) >=40 mg/dL [facility] Comment: Reference range: ??Low HDL: ?? < 40 mg/dL ??Normal: ?40-60 mg/dL ??Desirable: > 60 mg/dL KEITH 2001; 285(19):5918-2418 LDL Cholesterol 108 (H) <=99 mg/dL [facility] Comment: Reference range: ?? Optimal: ?<100 mg/dL ?? Near Optimal/Above Optimal: ?? 100-1 29 mg/dL ?? Borderline high: ?130-159 mg/dL ?? High: ? 160-189 mg/dL ?? Very high: ?>qn=207 mg/dL KEITH 2001: 285(19):3637-1648 Chol/HDL Ratio 5.1 ratio [facility] Comment: A Cholesterol to HDL ratio below 4:1 is desirable. ??Studies suggest that increased CAD risk occurs at ratios abov e 5 for females and above 6 for men. ? [place] Heart Association ??(htt p://www.americanheart.org) ? Luzmaria Int Med, 1994; 121:641 ? AM J Med, 1998; 105(1A):48S Specimen Anatomical Collection Method Collection Time Receive d Time (Source) Location / / Volume Laterality Blood specimen 06/07/2012 10:20 3 (specimen) AM EDT 10:28 AM EDT Resulting Agency Comment Spec In Lab Nan Dunn MD CHEMISTRY ORDERABLES Performing Organization Address City/State/[place] [address] [facility] (ABNORMAL) Hemoglobin A1c (06/07/2012 10:20 AM EDT) Analysis Performed At [facility] Time Signature Hemoglobin A1C 6.6 (H) 4.3 - 6.1 CERNER % [facility] Comment: The [place] Diabetes Association (ADA) has stated that HbA1c values >or= 6.5% are consistent with the diagnosis of darcy betes mellitus. In the absence of hyperglycemia (i.e. plasma glucose > 200 mg/dL) or classic symptoms of hyperglycemia a repeat measurement of Hb A1c should be performed on a separate sample to confirm the diagnosis. The ADA also considers an HbA1c value be tween 5.7% and 6.4% to be consistent with an increased risk of diabetes (pred iabetes). Patients with an HbA1c value in this range should be counseled about their increased risk of progressing to diabetes. Reference: Position Statement: Standards of Medical Care in Diabetes 2013. Diabetes Care 2013:36;suppl 1:S11 -S66. Est Avg Gluc 143 mg/dL [facility] Comment: eAG equivalents for HbA1c percentages: HbA1c(%) ?eAG(mg/dL) 6.0 ?126 6.5 ?140 7.0 ?154 7.5 ?169 8.0 ?183 8.5 ?197 9.0 ?212 9.5 ?226 10.0 ? 240 Limitations: The eAG calculation has not been validated on women, individuals below 18 years old and above 70 years old, and individuals with hemoglobinopathies. Additional resources are available on ADA website: ??http://professional.diabetes.org/gluc osecalculator.aspx Angelo MULLEN, Ariel J, Bill R, et al. ??Tr anslating the A1C assay into estimated average glucose values. ??Diabetes Care 2008:31(8):4792-1751. Specimen Anatomical Collection Method Collection Time Receive d Time (Source) Location / / Volume Laterality Blood specimen 06/07/2012 10:20 3 (specimen) AM EDT 10:28 AM EDT Resulting Agency Comment Spec In Lab Nan Dunn MD CHEMISTRY ORDERABLES Performing Organization Address City/State/[place] [address] [facility]ILL[facility] (ABNORMAL) CMP w/fasting Glucose (06/07/2012 10:20 AM EDT) athologist Signature Glucose 108 (H) 65 - 99 CERNER Fasting mg/dL [facility] Comment: ?Fasting* Glucose Interpretive C riteria Normal ?65-99 mg/dL Impaired Fasting glucose ?100-125 mg/dL Consistent with Diabetes Mellitus ? >or= 126 mg/dL *Fasting is defined as no caloric intake for at least 8 hours In the absence of unequivocal hypergly cemia a plasma glucose value of >or= 126 mg/dL should be repeated on a subseq uent day. Diagnosis and Classification of Diabetes Mellitus, Position Statement from the [place] Diabetes Association. ??Diabete s Care, Volume 33, Supplement 1, Mar 2009 BUN 13 8 - 18 mg/dL [facility] MILLENNIUM Creatinine 0.80 0.70 - 1.20 mg/dL [facility] Comment: Please note that the pediatric reference intervals supplied above were not validated at [facility]. Results from pediatri c patients should be interpreted in conjunction to the patient's age, height and muscle mass. Sodium 142 135 - 145 mmol/L [facility] SARAN NIUM Potassium 4.1 3.5 - 5.0 mmol/L [facility] Comment: Please note: ??Patients with WBC >100,00 0 may have falsely elevated Potassium levels. ??For accurate Potassium quantif ication in these patients send serum separator tube (gold top) for subsequent determinations. ??Contact the Clinical Chemistry Laboratory if there are any qu estions. Chloride 105 98 - 107 mmol/L C[facility]ER MILLENN IUM CO2 28 22 - 31 mmol/L [facility] MILLENNI UM Anion Gap 9 5 - 15 mmol/L C[facility] MILLENNIU M Calcium 9.0 8.5 - 10.5 mg/dL [facility] SARAN NIUM Total Protein 7.1 6.4 - 8.3 gm/dL C[facility] MIL LENNIUM Albumin 4.1 3.2 - 5.2 gm/dL C[facility] MILLENN IUM AST 44 (H) 0 - 30 unit/L CERN[facility] MILLENNIU M ALT 34 (H) 0 - 30 unit/L CERNER MILLENNIU M Alk Phos 68 40 - 104 unit/L CERNER MILLENN IUM Total Bilirubin 0.5 0.2 - 1.3 mg/dL [facility] M ILLENNIUM Bili, Direct 0.1 0.0 - 0.3 mg/dL C[facility] MILL ENNIUM Estimated GFR >60 >=60 CERNER MILLENNIU M Comment: The National Kidney Disease Education Pr ogram (NKDEP) has recommended all laboratories report estimated GFR (eGFR) along with plasma creatinine measurements to assist you with recognit ion of early kidney disease. Caveats: ??Plasma creatinine should be a t steady-state (unchanged within the past week). For patient s multiply eGFR by 1.2. The MDRD equation was developed using patients be tween the ages of 18 and 70 years. ?? The MDRD equation has not been validated for patients < 18 years of age and should not be used to assess renal function in the pediatric population. ??The MDRD eGFR equation will also overestimate the true GFR of patients above the age of 70. ??This overestimation is variable bu t increases with age. At present, NKDEP does NOT recommend usi ng the MDRD equation for drug dosing purposes and pharmacists should continue to use their current dosing methods. In addition, numerical eGFR values great er than 60 ml/min/1.73 square meters should be treated as > 60, and not an ex act number due to greater inaccuracies at these higher values. Per NKDEP, they classify normal renal function as any GFR >60ml/min/1.73 square meters; chronic kidney disease wh en GFR <60, and renal failure when GFR <15. ??This calculation may not be valid for patients with atypical muscle mass (very lean or obese), acute renal failur e, and in patients with diabetic kidney disease. References: http://nkdep.nih.gov/resources/NKDEP_Sug gestn4Labs_0606_508.pdf http://www.kidney.org/professionals/kls/ pdf/faq_gfr.pdf Giovanny K, Art NA, Marilyn AK, Desmond TS, Vanessa AD, Sol AMANDA. Relative performance of the MDRD and CKD-EPI equa tions for estimating glomerular filtration rate among patients with vari ed clinical presentations. Clin J Am Soc Nephrol;6:1963-72. Specimen Anatomical Collection Method Collection Time Receive d Time (Source) Location / / Volume Laterality Blood specimen 06/07/2012 10:20 3 (specimen) AM EDT 10:28 AM EDT Resulting Agency Comment Spec In Lab Nan Dunn MD CHEMISTRY ORDERABLES Performing Organization Address City/State/[place] [address] CERNER MILLENNIUM (ABNORMAL) TSH (06/07/2012 10:20 AM EDT) P athologist Signature TSH 7.77 (H) 0.27 - 4.20 CERNER mcIU/mL MILL[facility]NIUM Specimen Anatomical Collection Method Collection Time Receive d Time (Source) Location / / Volume Laterality Blood specimen 06/07/2012 10:20 3 (specimen) AM EDT 10:28 AM EDT Resulting Agency Comment Spec In Lab Nan Dunn MD CHEMISTRY ORDERABLES Performing Organization Address City/State/[place] [address] CERNER MILLENNIUM documented in this encounter Visit Diagnoses Diagnosis Routine adult health maintenance Routine general medical examination at a health care facility documented in this encounter Care Teams Engineering Project Manager Relationship Specialty Start Date End Date Denise Darnell MD PCP - General 11/18/11 05/08/[address] [facility] [address] [place] [address] (work) documented as of this encounter
--- OUTSIDE RECORDS SUMMARY | 2021-12-17 15:08 | XMS_ITS | Encounter Summary ---
:1975 Author Organization [facility] [place] [address] Care Team Providers Name Role Phone Denise Darnell MD Primary Care Provider Reason for Visit Reason Onset Date Comments Medication Refill 06/13/2012 Encounter Details Date Type Department Care Team Description 06/13/2012 Refill Internal Medicine at [facility], Dyan Hernández RN GERD (gastroesophageal [facility] [place] disease) (Primary [facility] [place]) [place] [phone] Social History Tobacco Use Types Packs/Day [...] Visit Diagnoses Diagnosis GERD (gastroesophageal reflux disease) - Primary Esophageal reflux documented in this encounter Care Teams Medical Claims Manager Relationship Specialty Start Date End Date Denise Darnell MD PCP - General 11/18/11 05/08/15 [facility] [place] [address] documented as of this encounter
--- OUTSIDE RECORDS SUMMARY | 2021-12-17 15:08 | XMS_ITS | Encounter Summary ---
:1975 Author Organization [facility] [place] [address] Care Team Providers Name Role Phone Denise Darnell MD Primary Care Provider Reason for Visit Reason Comments Allergic Reaction Encounter Details Date Type Department Care Team Description 09/20/2012 Office Visit Allergy at [facility] Lala Smith, Pruritus (Primary Dx); [facility] Angioedema; [facility] Chronic urticaria; [place], [place] Elevated blood pressure [id number] ALLERGY AND [phone] IMMUNOLOGY [place], [place] [address] Social History Tobacco Use Types [...] Sign Reading Time Taken Comments Blood Pressure 146/78 09/20/2012 2:13 PM EDT Pulse 92 09/20/2012 2:13 PM EDT Temperature - - Respiratory Rate 23 09/20/2012 2:13 PM EDT Oxygen Saturation - - Inhaled Oxygen Concentration - - Weight 158.8 kg (350 lb) 09/20/2012 2:13 PM EDT Height 175.3 cm (5' 9) 09/20/2012 2:13 PM EDT Body Mass Index 51.69 09/20/2012 2:13 PM EDT documented in this encounter Patient Instructions Patient InstructionsLala Smith MD - 09/20/2012 2:58 PM EDT - Stop using dryer sheets - Use hypoallergenic products - Avoid NSAIDs ( ie ibuprofen,naproxen or aspirin) - Start Xyzal 5mg daily - Start Atarax 25mg three times daily as needed for pruritus. Atarax is sedating. Please do not operate machinery or drive a car while on Atarax. documented in this encounter Progress Notes Lala Smith MD - 10/03/2012 4:38 PM EDT Quick Note: Patient sent message via My dh portal: Dear Ms. Singleton, I have personally reviewed your test results. Your allergy antibody levels ( IgE) to cat and DP andDF dust mite proteins were elevated. The remainder of the tests including white blood cell count, hemoglobin, platelet, ferritin, multiple aeroallergens ( except as noted above), PORFIRIO, protein electrophoresis, complement studies, and autoantibodies for bullous pemphigus were unremarkable. Thus, it is unlikely that you have an underlying hematologic disorder, iron deficiency, autoimmune disorder, hereditary or acquired angioedema or bullous pemphigus contributing to your symptoms. You do have a sensitivity to cat and dust mites which may be contributing to your itchiness. Dust mite allergy can be initially managed with antihistamines such as Xyzal ( which you were prescribed during your last visit) and environmental control measures, such as: 1. Dust mite encasings, pillow and mattress ( ie From [employer]; [employer], [employer], [employer], [employer], [employer]) 2. Wash bedding in hot water (no hotter than 120 degrees F) weekly 3. Humidity control, 30-50% 4. Minimize carpet and stuffed animal exposure Dust mites are present all year round and allergies are worse during the Fall because of the increased humidity. They are found in items with stuffing, such as mattresses, pillows or fabric couches. Since you don't own a cat, the cat sensitivity is less of a contributor to your allergies. However,since you had a cat previously, it should be noted that cat dander can last for years in a house. I would advise you to not get a cat in the future and minimize contact with cats because it may exacerbate your itchiness. It is a pleasure to participate in your care. If you have any questions, please contact me at [phone]. Thank you. Sincerely, Lala Smith MD Lala Smith MD - 09/20/2012 12:23 PM EDT Chief Complaint Patient presents with ??? Allergic Reaction HPI/ Assessment and Plan The patient is a pleasant 37 y.o. year old female whose consultation was requested by . The reason for consultation is evaluation and management of pruritus. Patient Active Problem List Diagnoses ??? Pruritus Overview Note: Generalized pruritus for the last year. Involves [...] without any change in the pruritus. No improvement with oatmeal baths. No new meds. No new foods in diet. She takes Aleve most days of the week for osteoarthritis of the knee. Takes ibuprofen less than oncemonthly. No change in soaps, moisturizers or detergents. She uses dryer sheets. No insect bites/stings. No pets currently. Had dog and cat until last year. PMH: negative for hematologic malignancy, angioedema, eczema, liver disorder or renal disorder. Has CU. Has hypothyroidism. Family history: Negative for angioedema, chronic urticaria, hematologic malignancy Assessment & Plan Note: Differential is very broad. Includes allergies, iron- deficiency anemia, bullous pemphigus, liver, renal, autoimmune or inflammatory disorder. She had mildly elevated hepatic tests in June, but this is unlikely to be contributing to her pruritus. Skin tests not performed because they may exacerbate pruritus and hives. - Stop Zyrtec. Start Xyzal 5 mg daily - Start Atarax 25mg TID prn pruritus. Reviewed sedative effect - Use hypoallergenic products - Stop using dryer sheets - Will check: Orders Placed This Encounter Procedures ??? Sedimentation rate ??? CBC (with Diff) ??? Ferritin ??? Birch, silver IgE ??? Maple / Portage IgE ??? Garrett, White IgE ??? [place], White IgE ??? Troy IgE ??? Elm IgE ??? Beech IgE ??? Cat Epithelium IgE ??? Dog Epithelium IgE ??? Richy Grass IgE ??? Ragweed, short/ common IgE ??? House Dust Mites/D.F., IgE ??? House Dust Mites/D.P., IgE ??? Alternaria Tenuis, IgE ??? Aspergillus fumigatus IgE ??? PORFIRIO ??? Miscellaneous Lab request ??? Immunoglobulin E (IgE) ??? Differential, Automated ??? [facility] ??? Chronic urticaria Overview Note: Patient has hives a couple of times per week associated with the generalized pruritus. They last less than 24 hours. They gomez not leave any bruises or scars. Reviewed [...] 0.3 mg/dL 0.1 Estimated GFR >=60 >60 Assessment & Plan Note: Most cases of CU are idiopathic. Allergies and underlying systemic disorders of the thyroid, liver and kidneys can sometimes present with hives. In Ms. Singleton' case, thyroid disorder may be contributing to her hives. Autoimmune thyroid disorder isassociated with hives. - Start Xyzal 5mg daily. Stop Zyrtec. - Start Atarax - If not well controlled on Xyzal 5mg daily may need to increase it to BID - Continue to follow up with PCP for management of elevated TSH. If TSH continues to increase or if hives persist despite antihistamine therapy, would recommend a trial of increased Synthroid dose. ??? Angioedema Overview Note: One episode of angioedema of the lip about two months ago. Lasted about one hour. She was on lisinopril about two weeks prior to the swelling episodes. Two days ago had swelling of the corner of her lip and it lasted less than 5 minutes. No difficulty breathing or SOB. Assessment & Plan Note: Most likely related to JOSE inhibitors. JOSE inhibitors can cause swelling episodes up to 1 year after discontinuing medication. Hereditary or acquired angioedema and monoclonal proteinemia are less likely. - Will check: Protein Electrophoresis, serum C4 Complement C1 Esterase Inhibitor Antigen C1 Esterase Inhibitor, Functional - Avoid NSAIDs and JOSE inhbitors ??? Elevated blood pressure Overview Note: History of hypertension. Lisinopril stopped because of angioedema. Assessment & Plan Note: - Recommend continued monitoring and follow up with primary provider for further evaluation and management of elevated blood pressure Review of Systems (Recent problems if checked, all others negative): .Review of Systems Constitution: Positive for malaise/fatigue. HENT: Itchy ears sneezing Respiratory: Positive for shortness of breath. Skin: Positive for rash. Musculoskeletal: Positive for joint pain and myalgias. All other systems reviewed and are negative. Allergies, medications, past medical/ surgical history were reviewed and updated in eDH. Allergies: Latex and Sulfa (sulfonamide antibiotics) Medications: Outpatient Prescriptions Marked as Taking for the 09/20/12 encounter (Office Visit) with Lala Smith MD Medication Sig Dispense Refill ??? levothyroxine (SYNTHROID) 25 mcg tablet Take 1 tablet by mouth daily. Take with 125 mcg tablet to make total dose 150 mcg per day 60 tablet 0 ??? levothyroxine (SYNTHROID) 125 mcg tablet Take 1 tablet by mouth daily. 90 tablet 12 ??? FLUoxetine (PROZAC) 20 mg capsule Take 1 capsule by mouth daily. 90 capsule 3 ??? Pantoprazole (PROTONIX) 40 mg GrPS Take 40 mg by mouth daily. 90 each 3 ??? DISCONTD: naproxen (NAPROSYN) 250 mg tablet Take 1 tablet by mouth 2 times daily (with meals). ??? multivitamin (THERAGRAN) tablet Take 1 tablet by mouth daily. Past Medical and Social History: Past Medical History Diagnosis Date ??? Diabetes mellitus type 2 in obese stopped Metformin 05/2009 ??? Hypothyroidism 2001 on meds prior to ??? Depression ??? Anxiety disorder ??? GERD (gastroesophageal reflux disease) On medication ??? Obesity BMI 44 mg/kg2 ??? Previous section Interested in ??? GERD (gastroesophageal reflux disease) ??? Hypertension Meds stopped in 2009 ??? Hx of migraines ??? Hyperlipidemia ??? Hypertensive disease 2004 high blood pressure ??? Musculoskeletal disease 2011 knee arthritis ??? Breathing problem 2005 slight asthma...sleep apnea...bronchitis ??? Elevated cholesterol 2005 high chloresterol ??? Chronic pain 2009 right side...leg, knee,elbow,shoulder foot ??? Circulatory disease 2009 varicose veins ??? Diabetes 2008 diabetic...gestational diabetes ??? Digestive problems 2005 gerd...heart burn ??? ENT disease 1983 ear infections...strep throat ??? Eye problems 2008 stigmatism ??? Headache 2000 migraine and regular headaches ??? Urinary disorder 2005 urinary incontinence with stress...gall stones ??? Mental or behavioral problem 2003 depression anxiety ocd ptsd obese with dv partner 18 yrs ??? Skin disorder 1984 acne ??? Hormone disorder 2005 thyroidism ??? Chronic urticaria 09/21/2012 Past Surgical History Procedure Date ??? Created by interface SURGICAL EXTRACTIONS,REMOVAL OF IMPACTED TOOTH,PARTAILLY / Procedure Date: 01/01/2009 ??? Cholecystectomy 2006 ??? section 12/1999 twins ??? delivery only 07/10/2010 ?? DELIVERY performed by E[facility] NELSON at [facility] ??? Unlisted evaluation service 2002 gall bladder...gall stones ??? Gastroenterology procedure 2003 gall bladder...gall stones ??? Genital surg proc, female unlisted 1999 2010 twins and single ... ??? Cranio/maxillofacial surg unlisted 2007 all 4 wisdom teeth out ??? Bladder surgery 2002 gall bladder Family history: Family History Problem Relation Age [...] ??? High Blood Pressure Maternal Uncle Social history: History Social History ??? Marital Status: Single Spouse Name: N/A Number of Children: N/A ??? Years of Education: N/A Occupational History ??? [employer] Social History Main Topics ??? Smoking status: Former Smoker -- 2.0 packs/day for 10 years Types: Cigarettes Quit date: 09/04/2010 ??? Smokeless tobacco: Never Used Comment: quits during ??? Alcohol Use: No n/a ??? Drug Use: No ??? Sexually Active: Yes -- Male partner(s) Other Topics Concern ??? Stress Concern Yes [...] involvement with this . 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 Referred to [facility] but has not contected.Patient and FOB were living together at beginning of but are not living together now. Physical Exam: Vital signs reviewed. Normal Except General: - No apparent distress Eyes: - Conjunctivae without injection; - No eyelid swelling ENT: - No erythema of the tympanic membranes - Normal external ear canals - Nl nasal mucosa, septum, and turbinates; - Oropharynx well hydrated without lesions or exudates; - Face & sinuses non-tender to palpation/percussion Neck: - Symmetrical, no masses, trachea midline; Resp: - Unlabored breathing with symmetrical and equal bilateral expansion; - CTA w/o wheezes, rales, or rhonchi; CV: - Regular rate and rhythm - No pedal swelling GI: - Abdomen soft - Bowel sounds present - No hepatosplenomegaly Lymph: - No significant cervical, supraclavicular or infraclavicular lymphadenopathy Musculoskeletal: - Nl gait and station Extremities: - No clubbing, cyanosis, or edema Skin: - No rashes Neuro: - Nl gait and station Psych: - Nl and age appropriate mood and affect - Judgement and insight intact TESTS/PROCEDURES IMPRESSION/REPORT/PLAN Elevated blood pressure - Recommend continued monitoring and follow up with primary provider for further evaluation and management of elevated blood pressure Pruritus Differential is very broad. Includes allergies, iron- deficiency anemia, bullous pemphigus, liver, renal, autoimmune or inflammatory disorder. She had mildly elevated hepatic tests in June, but this is unlikely to be contributing to her pruritus. Skin tests not performed because they may exacerbate pruritus and hives. - Stop Zyrtec. Start Xyzal 5 mg daily - Start Atarax 25mg TID prn pruritus. Reviewed sedative effect - Use hypoallergenic products - Stop using dryer sheets - Will check: Orders Placed This Encounter Procedures ??? Sedimentation rate ??? CBC (with Diff) ??? Ferritin ??? Birch, silver IgE ??? Maple / Portage IgE ??? Garrett, White IgE ??? [place], White IgE ??? Troy IgE ??? Elm IgE ??? Beech IgE ??? Cat Epithelium IgE ??? Dog Epithelium IgE ??? Richy Grass IgE ??? Ragweed, short/ common IgE ??? House Dust Mites/D.F., IgE ??? House Dust Mites/D.P., IgE ??? Alternaria Tenuis, IgE ??? Aspergillus fumigatus IgE ??? PORFIRIO ??? Miscellaneous Lab request ??? Immunoglobulin E (IgE) ??? Differential, Automated ??? Misc [facility] Test[facility] Angioedema Most likely related to JOSE inhibitors. JOSE inhibitors can cause swelling episodes up to 1 year afterdiscontinuing medication. Hereditary or acquired angioedema and monoclonal proteinemia are less likely. - Will check: Protein Electrophoresis, serum C4 Complement C1 Esterase Inhibitor Antigen C1 Esterase Inhibitor, Functional - Avoid NSAIDs and JOSE inhbitors Chronic urticaria Most cases of CU are idiopathic. Allergies and underlying systemic disorders of the thyroid, liver and kidneys can sometimes present with hives. In Ms. Singleton' case, thyroid disorder may be contributing to her hives. She autoimmune thyroid disorder can trigger hives. - Start Xyzal 5mg daily. Stop Zyrtec. - Start Atarax - If not well controlled on Xyzal 5mg daily may need to increase it to BID - Continue to follow up with PCP for management of elevated TSH. If TSH continues to increase or if hives persist despite antihistamine therapy, would recommend a trial of low dose Synthroid. Orders Placed This Encounter Medications ??? Levocetirizine (XYZAL) 5 mg Tab Sig: Take 1 tablet by mouth daily. Dispense: 30 tablet Refill: 11 ??? hydrOXYzine (ATARAX) 25 mg tablet Sig: Take 1 tablet by mouth 3 times daily as needed for Itching. Do not operate machinery on this medication. Dispense: 30 tablet Refill: 12 RTC in 3 months or sooner if allergies worsen in the interim. eDH record was reviewed. Written instructions were reviewed and provided to the patient. No learning barriers were identified. The risks, benefits, alternatives and indications for the use of mediations prescribed or recommended during today's visit were reviewed with the patient. The patient understood and agreed with what was discussed. All questions were answered. documented in this encounter Miscellaneous Notes Assessment & Plan Note - Lala Smith MD - 09/26/2012 4:22 PM EDTAssociated Problem(s): Chronic urticaria Most cases of CU are idiopathic. Allergies and underlying systemic disorders of the thyroid, liver and kidneys can sometimes present with hives. In Ms. Singleton' case, thyroid disorder may be contributing to her hives. Autoimmune thyroid disorder isassociated with hives. - Start Xyzal 5mg daily. Stop Zyrtec. - Start Atarax - If not well controlled on Xyzal 5mg daily may need to increase it to BID - Continue to follow up with PCP for management of elevated TSH. If TSH continues to increase or if hives persist despite antihistamine therapy, would recommend a trial of increased dose of Synthroid. Assessment & Plan Note - Lala Smith MD - 09/20/2012 3:07 PM EDTAssociated Problem(s): Angioedema Most likely related to JOSE inhibitors. JOSE inhibitors can cause swelling episodes up to 1 year afterdiscontinuing medication. Hereditary or acquired angioedema and monoclonal proteinemia are less likely. - Will check: Protein Electrophoresis, serum C4 Complement C1 Esterase Inhibitor Antigen C1 Esterase Inhibitor, Functional - Avoid NSAIDs and JOSE inhbitors Assessment & Plan Note - Lala Smith MD - 09/20/2012 3:05 PM EDTAssociated Problem(s): Pruritus (Resolved 09/29/2016) Differential is very broad. Includes allergies, iron- deficiency anemia, bullous pemphigus, liver, renal, autoimmune or inflammatory disorder. She had mildly elevated hepatic tests in June, but this is unlikely to be contributing to her pruritus. Skin tests not performed because they may exacerbate pruritus and hives. - Stop Zyrtec. Start Xyzal 5 mg daily - Start Atarax 25mg TID prn pruritus. Reviewed sedative effect - Use hypoallergenic products - Stop using dryer sheets - Will check: Orders Placed This Encounter Procedures ??? Sedimentation rate ??? CBC (with Diff) ??? Ferritin ??? Birch, silver IgE ??? Maple / Portage IgE ??? Garrett, White IgE ??? [place], White IgE ??? Troy IgE ??? Elm IgE ??? Beech IgE ??? Cat Epithelium IgE ??? Dog Epithelium IgE ??? Richy Grass IgE ??? Ragweed, short/ common IgE ??? House Dust Mites/D.F., IgE ??? House Dust Mites/D.P., IgE ??? Alternaria Tenuis, IgE ??? Aspergillus fumigatus IgE ??? PORFIRIO ??? Miscellaneous Lab request ??? Immunoglobulin E (IgE) ??? Differential, Automated ??? [facility] Assessment & Plan Note - Lala Smith MD - 09/20/2012 2:38 PM EDTAssociated Problem(s): Elevated blood pressure (Resolved 09/29/2016) - Recommend continued monitoring and follow up with primary provider for further evaluation and management of elevated blood pressure documented in this encounter Plan of Treatment Not on filedocumented as of this encounter Procedures Procedure Name Priority Date/Time Associated Comments Diagnosis MISCELLANEOUS LAB Routine 09/20/2012 3:32 PM Pruritus Resu lts for this REQUEST EDT procedure are i n the results section. ALTERNARIA TENUIS, IGE Routine 09/20/2012 3:32 PM Pruritus Results for this EDT procedure are i n the results section. IMMUNOGLOBULIN E (IGE) Routine 09/20/2012 3:32 PM Prurit us Results for this EDT Angioedema procedure are i n the results section. HOUSE DUST MITES/D.F., Routine 09/20/2012 3:32 PM Pruritus Results for this IGE EDT procedure are i n the results section. HOUSE DUST MITES/D.P., Routine 09/20/2012 3:32 PM Pruritus Results for this IGE EDT procedure are i n the results section. MISC [facility]LLY TEST[facility] Routine 09/20/2012 3:32 PM Re sults for this EDT procedure are i n the results section. DIFFERENTIAL, AUTOMATED Routine 09/20/2012 3:32 PM Results for this EDT procedure are i n the results section. C1 ESTERASE INHIBITOR Routine 09/20/2012 3:32 PM Pruritu s Results for this ANTIGEN EDT Angioedema procedure are i n the results section. OAK IGE Routine 09/20/2012 3:32 PM Pruritus Results f or this EDT procedure are i n the results section. C1 ESTERASE INHIBITOR, Routine 09/20/2012 3:32 PM Prurit us Results for this FUNCTIONAL EDT Angioedema procedure are i n the results section. ELM IGE Routine 09/20/2012 3:32 PM Pruritus Results f or this EDT procedure are i n the results section. BIRCH, SILVER IGE Routine 09/20/2012 3:32 PM Pruritus Resu lts for this EDT procedure are i n the results section. DOG EPITHELIUM IGE Routine 09/20/2012 3:32 PM Pruritus Res ults for this EDT procedure are i n the results section. ASPERGILLUS FUMIGATUS Routine 09/20/2012 3:32 PM Pruritus Results for this IGE EDT procedure are i n the results section. CAT EPITHELIUM IGE Routine 09/20/2012 3:32 PM Pruritus Res ults for this EDT procedure are i n the results section. HICKORY, WHITE IGE Routine 09/20/2012 3:32 PM Pruritus Res ults for this EDT procedure are i n the results section. RAGWEED, SHORT/ COMMON Routine 09/20/2012 3:32 PM Pruritus Results for this IGE EDT procedure are i n the results section. RICHY GRASS IGE Routine 09/20/2012 3:32 PM Pruritus Resu lts for this EDT procedure are i n the results section. MAPLE / BOX ELDER IGE Routine 09/20/2012 3:32 PM Pruritus Results for this EDT procedure are i n the results section. BEECH IGE Routine 09/20/2012 3:32 PM Pruritus Results f or this EDT procedure are i n the results section. GARRETT, WHITE IGE Routine 09/20/2012 3:32 PM Pruritus Results for this EDT procedure are i n the results section. SEDIMENTATION RATE Routine 09/20/2012 3:32 PM Pruritus Results for this EDT Angioedema procedure are i n the results section. CBC (WITH DIFF) Routine 09/20/2012 3:32 PM Pruritus Result s for this EDT procedure are i n the results section. C4 COMPLEMENT Routine 09/20/2012 3:32 PM Pruritus Results for this EDT Angioedema procedure are i n the results section. PORFIRIO Routine 09/20/2012 3:32 PM Pruritus Results f or this EDT procedure are i n the results section. PROTEIN Routine 09/20/2012 3:32 PM Pruritus Results for this ELECTROPHORESIS, SERUM EDT Angioedema proce dure are in the results section. FERRITIN Routine 09/20/2012 3:32 PM Pruritus Results f or this EDT procedure are i n the results section. documented in this encounter Results [facility] (09/20/2012 3:32 PM EDT) [facility] Method Time Signature [facility] CERNER Test ? Result ?Flag ??Unit ? RefValue MILLENNIUM BP 180 and 230, S ??BP 180, S ?<5.00 ? uni t(s) ??<9.0 ??BP 230, S ?<5.00 ? uni t(s) ??<9.0 Test Performed by: [address] [address] Traffic Agent: Moses Lu III, M.D. Specimen Anatomical Collection Method Collection Time Receive d Time (Source) Location / / Volume Laterality Blood specimen 09/20/2012 3:32 PM 013 4:30 (specimen) EDT PM EDT Resulting Agency Comment Spec In Lab Lala Smith MD CHEMISTRY ORDERABLES Performing Organization Address City/[facility]/ZIP Code Phon e Number [address] CERNER MILLENNIUM Differential, Automated (09/20/2012 3:32 PM EDT) P athologist Signature Neutrophils % 62.7 34.0 - CERNER 71.0 % MILLENNIUM Neutr Abs (ANC) 3.92 1.50 - CERNER 6.30 MILLENNIUM x10(3)/mcL Lymphocytes % 28.6 19.0 - CERNER 53.0 % MILLENNIUM Lymphocytes Abs 1.8 1.0 - 3.6 CERNER x10(3)/mcL MILLENNIUM Monocytes % 5.6 4.0 - 13.0 CERNER % MILLENNIUM Monocyte Abs 0.4 0.2 - 1.0 CERNER x10(3)/mcL MILLENNIUM Eosinophils % 2.7 0.0 - 7.0 CERNER % MILLENNIUM Eosinophils Abs 0.2 0.0 - 0.5 CERNER x10(3)/mcL MILLENNIUM Basophils % 0.2 0.0 - 2.0 CERNER % MILLENNIUM Basophils Abs 0.0 0.0 - 0.2 CERNER x10(3)/mcL MILLENNIUM Immature Gran % 0.20 0.00 - CERNER 0.66 % MILLENNIUM Comment: Immature granulocytes(IG's)percentage an d absolute count will include metamyelocytes, myelocytes, and promyelo cytes. Blood smears from CBCs yielding IG's will be scanned manually for concor dance. If this scan disagrees with the automated IG or if promyelocytes are not ed, a manual differential will be performed. Kayleen Gran Abs 0.01 0.00 - 0.05 x10(3)/mcL CER NER MILLENNIUM Specimen Anatomical Collection Method Collection Time Receive d Time (Source) Location / / Volume Laterality Blood specimen 09/20/2012 3:32 PM 013 3:41 (specimen) EDT PM EDT Lala Smith MD HEMATOLOGY ORDERABLES Performing Organization Address City/[facility]/[place] [address] CERNER MILLENNIUM Immunoglobulin E (IgE) (09/20/2012 3:32 PM EDT) athologist Signature IgE 80.7 kU/L [facility] Comment: -- REFERENCE VALUE -- Mean ??13.2 +1SD ??41.0 +2SD 127.0 Test Performed by: [facility] [address] [place] [address] Traffic Agent: Moses smith III, M.D. Specimen Anatomical Collection Method Collection Time Receive d Time (Source) Location / / Volume Laterality Blood specimen 09/20/2012 3:32 PM 013 4:30 (specimen) EDT PM EDT Resulting Agency Comment Spec In Lab Lala Smith MD IMMUNOLOGY ORDERABLES Performing Organization Address City/State/ZIP Code Phon e Number [address] [facility] Miscellaneous Lab request (09/20/2012 3:32 PM EDT) [facility] gist Method Time Signature Misc Lab Request CERNER Result received in [facility] lab. Specimen Anatomical Collection Method Collection Time Receive d Time (Source) Location / / Volume Laterality Specimen of 09/20/2012 3:32 PM 3 3:41 unknown material EDT PM EDT (specimen) Lala Smith MD HEMATOLOGY ORDERABLES Performing Organization Address City/State/ZIP Code Phon e Number [address] [facility] C1 Esterase Inhibitor, Functional (09/20/2012 3:32 PM EDT) athologist Signature C1 Romy Inh 84 % normal [facility] Comment: -- REFERENCE VALUE -- >67 (Normal) 41-67 (Equivocal) <41 (Abnormal) Test Performed by: [facility] [address] [place] [address] Traffic Agent: Moses smith III, M.D. Specimen Anatomical Collection Method Collection Time Receive d Time (Source) Location / / Volume Laterality Blood specimen 09/20/2012 3:32 PM 013 7:21 (specimen) EDT PM EDT Resulting Agency Comment Spec In Lab Lala Smith MD CHEMISTRY ORDERABLES Performing Organization Address City/[facility]/[place] [address] CERNER [facility] C1 Esterase Inhibitor Antigen (09/20/2012 3:32 PM EDT) athologist Signature C1 Romy Inh 32 19 - 37 CERNER Ag mg/dL [facility] Comment: Test Performed by: [facility] [address], [place] [address] Traffic Agent: Aliya Rubi, Ph. D. Specimen Anatomical Collection Method Collection Time Receive d Time (Source) Location / / Volume Laterality Blood specimen 09/20/2012 3:32 PM 013 4:33 (specimen) EDT PM EDT Resulting Agency Comment Spec In Lab Lala Smith MD CHEMISTRY ORDERABLES Performing Organization Address City/[facility]/ZIP Code Phon e Number [address] CERNER [facility]UM C4 Complement (09/20/2012 3:32 PM EDT) athologist [facility] C4 Complement 31 10 - 40 CERNER mg/dL [facility]ILLENNIUM Specimen Anatomical Collection Method Collection Time Receive d Time (Source) Location / / Volume Laterality Blood specimen 09/20/2012 3:32 PM 013 3:41 (specimen) EDT PM EDT Resulting Agency Comment Spec In Lab Lala Smith MD CHEMISTRY ORDERABLES Performing Organization Address City/[facility]/ZIP Code Phon e Number [address] CERNER [facility]NIUM Protein Electrophoresis, serum (09/20/2012 3:32 PM EDT) [facility] gist Method Time Signature Total Prot 6.8 6.1 - 8.0 CERNER Elec gm/dL [facility]NIUM Albumin Elect 3.92 3.60 - 6.00 CERNER gm/dL [facility] Alpha1-Globul 0.19 0.10 - 0.30 CERNER in gm/dL [facility] Alpha2-Globul 0.80 0.40 - 0.90 CERNER in gm/dL [facility]NI[facility] Beta Globulin 0.97 0.50 - 1.00 CERNER gm/dL [facility]NIUM Gamma 0.92 0.50 - 1.30 CERNER Globulin gm/dL [facility]NIUM M1 Band None None CERNER Detected Detected [facility]ILLENNIUM gm/dL Scan See Note CERNER [facility]ILL[facility]NIUM Comment: Please see scanned report in Ch art Review under the [facility] Laboratory Heading. Specimen Anatomical Collection Method Collection Time Receive d Time (Source) Location / / Volume Laterality Blood specimen 09/20/2012 3:32 PM 013 3:41 (specimen) EDT PM EDT Narrative This result has an attachment that is no t available. Resulting Agency Comment Spec In Lab Lala Smith MD CHEMISTRY ORDERABLES Performing Organization Address City/[facility]/ZIP Code Phon e Number [address] CERNER MILLENNIUM PORFIRIO (09/20/2012 3:32 PM EDT) P athologist Signature PORFIRIO Neg Neg CERNER [facility]ILL[facility]NIUM Specimen Anatomical Collection Method Collection Time Receive d Time (Source) Location / / Volume Laterality Blood specimen 09/20/2012 3:32 PM 013 8:08 (specimen) EDT AM EDT Resulting Agency Comment Spec In Lab Lala Smith MD IMMUNOLOGY ORDERABLES Performing Organization Address City/[facility]/ZIP [facility] Phon e Number [address] CERNER MILLENNIUM Aspergillus fumigatus IgE (09/20/2012 3:32 PM EDT) P athologist Signature A Fumigatus <0.35 kU/L CERNER IgE [facility]NIUM Comment: Class 0 (Negative <0.35) Test Performed by: [facility] [address] [place] [address] Traffic Agent: Moses smith III, M.D. Specimen Anatomical Collection Method Collection Time Receive d Time (Source) Location / / Volume Laterality Blood specimen 09/20/2012 3:32 PM 013 4:30 (specimen) EDT PM EDT Resulting Agency Comment Spec In Lab Lala Smith MD IMMUNOLOGY ORDERABLES Performing Organization Address City/[facility]/[place] [address] CERNER MILLENNIUM Alternaria Tenuis, IgE (09/20/2012 3:32 PM EDT) P athologist Signature Alt Tenuis IgE <0.35 kU/L CERNER MILLENNIUM Comment: Class 0 (Negative <0.35) Test Performed by: [place] [address] Traffic Agent: Moses smith III, M.D. Specimen Anatomical Collection Method Collection Time Receive d Time (Source) Location / / Volume Laterality Blood specimen 09/20/2012 3:32 PM 013 4:30 (specimen) EDT PM EDT Resulting Agency Comment Spec In Lab Lala Smith MD IMMUNOLOGY ORDERABLES Performing Organization Address City/[facility]/ZIP Code Phon e Number [address] CERNER MILLENNIUM House Dust Mites/D.P., IgE (09/20/2012 3:32 PM EDT) P athologist Signature Mites/D.P. IgE 22.2 kU/L CERNER MILLENNIUM Comment: Class 4 (Strongly Positive 17.5-49.9) Test Performed by: [place] [address] Traffic Agent: Moses smith III, M.D. Specimen Anatomical Collection Method Collection Time Receive d Time (Source) Location / / Volume Laterality Blood specimen 09/20/2012 3:32 PM 013 4:30 (specimen) EDT PM EDT Resulting Agency Comment Spec In Lab Lala Smith MD IMMUNOLOGY ORDERABLES Performing Organization Address City/[facility]/[place] [address] CERNER MILLENNIUM House Dust Mites/D.F., IgE (09/20/2012 3:32 PM EDT) athologist Signature Mites/D.F. IgE 6.08 kU/L CERNER MILLENNIUM Comment: Class 3 (Positive 3.50-17.4) Test Performed by: [place] [address] Traffic Agent: Moses smith III, M.D. Specimen Anatomical Collection Method Collection Time Receive d Time (Source) Location / / Volume Laterality Blood specimen 09/20/2012 3:32 PM 013 4:30 (specimen) EDT PM EDT Resulting Agency Comment Spec In Lab Lala Smith MD IMMUNOLOGY ORDERABLES Performing Organization Address City/[facility] [place] [address] CERNER MILLENNIUM Ragweed, short/ common IgE (09/20/2012 3:32 PM EDT) athologist Signature Ragweed IgE <0.35 kU/L CERNER MILLENNIUM Comment: Class 0 (Negative <0.35) Test Performed by: [place] [address] Traffic Agent: Moses smith III, M.D. Specimen Anatomical Collection Method Collection Time Receive d Time (Source) Location / / Volume Laterality Blood specimen 09/20/2012 3:32 PM 013 4:30 (specimen) EDT PM EDT Resulting Agency Comment Spec In Lab Lala Smith MD IMMUNOLOGY ORDERABLES Performing Organization Address City/[facility] [place] [address] CERNER MILLENNIUM Rich[place] IgE (09/20/2012 3:32 PM EDT) athologist Signature [place] <0.35 kU/L CERNER IgE MILLENNIUM Comment: Class 0 (Negative <0.35) Test Performed by: [place] [address] Traffic Agent: Moses smith III, M.D. Specimen Anatomical Collection Method Collection Time Receive d Time (Source) Location / / Volume Laterality Blood specimen 09/20/2012 3:32 PM 013 4:30 (specimen) EDT PM EDT Resulting Agency Comment Spec In Lab Lala Smith MD IMMUNOLOGY ORDERABLES Performing Organization Address City/State/[place] [address] CERNER MILLENNIUM Dog Epithelium IgE (09/20/2012 3:32 PM EDT) P athologist Signature Dog Epi IgE <0.35 kU/L CERNER MILLENNIUM Comment: Class 0 (Negative <0.35) Test Performed by: [place] [address] Traffic Agent: Moses smith III, M.D. Specimen Anatomical Collection Method Collection Time Receive d Time (Source) Location / / Volume Laterality Blood specimen 09/20/2012 3:32 PM 013 4:30 (specimen) EDT PM EDT Resulting Agency Comment Spec In Lab Lala Smith MD IMMUNOLOGY ORDERABLES Performing Organization Address City/[facility]/ZIP Code Phon e Number [address] CERNER MILLENNIUM Cat Epithelium IgE (09/20/2012 3:32 PM EDT) athologist Signature Cat Epi IgE 0.38 kU/L CERNER MILLENNIUM Comment: Class 1 (Equivocal 0.35-0.69) Test Performed by: [place] [address] Traffic Agent: Moses smith III, M.D. Specimen Anatomical Collection Method Collection Time Receive d Time (Source) Location / / Volume Laterality Blood specimen 09/20/2012 3:32 PM 013 4:30 (specimen) EDT PM EDT Resulting Agency Comment Spec In Lab Lala Smith MD IMMUNOLOGY ORDERABLES Performing Organization Address City/State/[place] [address] CERNER MILLENNIUM [place] IgE (09/20/2012 3:32 PM EDT) P athologist Signature [place] IgE <0.35 kU/L CERNER MILLENNIUM Comment: Class 0 (Negative <0.35) Test [facility]formed by: [facility] [place] [address] Traffic Agent: Moses smith III, M.D. Specimen Anatomical Collection Method Collection Time Receive d Time (Source) Location / / Volume Laterality Blood specimen 09/20/2012 3:32 PM 013 4:30 (specimen) EDT PM EDT Resulting Agency Comment Spec In Lab Lala Smith MD IMMUNOLOGY ORDERABLES Performing Organization Address City/[facility]/ZIP Code Phon e Number [address] CERNER MILLENNIUM [place] IgE (09/20/2012 3:32 PM EDT) P athologist Signature [place] IgE <0.35 kU/L CERNER MILLENNIUM Comment: Class 0 (Negative <0.35) Test Performed by: [address] [address] Traffic Agent: Moses smith III, M.D. Specimen Anatomical Collection Method Collection Time Receive d Time (Source) Location / / Volume Laterality Blood specimen 09/20/2012 3:32 PM 013 4:30 (specimen) EDT PM EDT Resulting Agency Comment Spec In Lab Lala Smith MD IMMUNOLOGY ORDERABLES Performing Organization Address City/[facility]/[place] [address] CERNER MILLENNIUM [place] IgE (09/20/2012 3:32 PM EDT) P athologist Signature [place] IgE <0.35 kU/L CERNER MILLENNIUM Comment: Class 0 (Negative <0.35) Test [facility]: [facility] [address] [address] Traffic Agent: Moses smith III, M.D. Specimen Anatomical Collection Method Collection Time Receive d Time (Source) Location / / Volume Laterality Blood specimen 09/20/2012 3:32 PM 07/17/2 013 4:30 (specimen) EDT PM EDT Resulting Agency Comment Spec In Lab Lala Smith MD IMMUNOLOGY ORDERABLES Performing Organization Address City/State/[place] [address] CERNER MILLENNIUM [place], [place] IgE (09/20/2012 3:32 PM EDT) P athologist Signature [place] <0.35 kU/L CERNER IgE MILLENNIUM Comment: Class 0 (Negative <0.35) Test Performed by: [place] [address] Traffic Agent: Moses smith III, M.D. Specimen Anatomical Collection Method Collection Time Receive d Time (Source) Location / / Volume Laterality Blood specimen 09/20/2012 3:32 PM 013 4:30 (specimen) EDT PM EDT Resulting Agency Comment Spec In Lab Lala Smith MD IMMUNOLOGY ORDERABLES Performing Organization Address City/[facility]/[place] [address] CERNER MILLENNIUM [place], [place] IgE (09/20/2012 3:32 PM EDT) P athologist Signature [place] IgE <0.35 kU/L CERNER MILLENNIUM Comment: Class 0 (Negative <0.35) Test Performed by: [place] [address] Traffic Agent: Moses smith III, M.D. Specimen Anatomical Collection Method Collection Time Receive d Time (Source) Location / / Volume Laterality Blood specimen 09/20/2012 3:32 PM 013 4:30 (specimen) EDT PM EDT Resulting Agency Comment Spec In Lab Lala Smith MD IMMUNOLOGY ORDERABLES Performing Organization Address City/State/[place] [address] CERNER MILLENNIUM [place] / [place] IgE (09/20/2012 3:32 PM EDT) athologist Signature [place] <0.35 kU/L CERNER [place] MILLENNIUM IgE Comment: Class 0 (Negative <0.35) Test Performed by: [place] [address] Traffic Agent: Moses smith III, M.D. Specimen Anatomical Collection Method Collection Time Receive d Time (Source) Location / / Volume Laterality Blood specimen 09/20/2012 3:32 PM 013 4:30 (specimen) EDT PM EDT Resulting Agency Comment Spec In Lab Lala Smith MD IMMUNOLOGY ORDERABLES Performing Organization Address City/[facility]/ZIP Code Phon e Number [address] CERNER MILLENNIUM [place] disla IgE (09/20/2012 3:32 PM EDT) athologist Signature [place] <0.35 kU/L CERNER IgE MILLENNIUM Comment: Class 0 (Negative <0.35) Test Performed by: [place] [address] Traffic Agent: Moses smith III, M.D. Specimen Anatomical Collection Method Collection Time Receive d Time (Source) Location / / Volume Laterality Blood specimen 09/20/2012 3:32 PM 013 4:30 (specimen) EDT PM EDT Resulting Agency Comment Spec In Lab Lala Smith MD IMMUNOLOGY ORDERABLES Performing Organization Address City/[facility]/[place] [address] CERNER MILLENNIUM Ferritin (09/20/2012 3:32 PM EDT) athologist Signature Ferritin 54 15 - 150 CERNER ng/mL MILLENNIUM Comment: Pediatric reference ranges not verified at [facility], interpret with caution. Reference ranges for females greater juanita n 50 years of age approach values for men, i.e., 30-400 ng/mL. Specimen Anatomical Collection Method Collection Time Receive d Time (Source) Location / / Volume Laterality Blood specimen 09/20/2012 3:32 PM 013 3:41 (specimen) EDT PM EDT Resulting Agency Comment Spec In Lab Lala Smith MD CHEMISTRY ORDERABLES Performing Organization Address City/[facility]/[place] [address] CERNER MILLENNIUM (ABNORMAL) CBC (with Diff) (09/20/2012 3:32 PM EDT) P athologist Signature WBC 6.2 4.0 - 10.0 CERNER x10(3)/mcL MILLENNIUM RBC 4.49 3.93 - CERNER 5.22 MILLENNIUM x10(6)/mcL Hemoglobin 12.4 11.2 - CERNER 15.7 gm/dL MILLENNIUM Hematocrit 39.9 34.0 - CERNER 45.0 % MILLENNIUM MCV 88.9 79.0 - CERNER 94.0 fL MILLENNIUM MCH 27.6 26.6 - CERNER 32.2 pg MILLENNIUM MCHC 31.1 (L) 32.0 - CERNER 36.5 gm/dL MILLENNIUM Platelets 245 145 - 370 CERNER x10(3)/mcL MILLENNIUM RDWSD 45.5 35.0 - CERNER 46.0 fL MILLENNIUM RDWCV 14.0 10.9 - CERNER 14.4 % MILLENNIUM MPV 11.5 9.0 - 12.0 CERNER fL MILLENNIUM Specimen Anatomical Collection Method Collection Time Receive d Time (Source) Location / / Volume Laterality Blood specimen 09/20/2012 3:32 PM 013 3:41 (specimen) EDT PM EDT Resulting Agency Comment Spec In Lab Lala Smith MD HEMATOLOGY ORDERABLES Performing Organization Address City/State/ZIP [place] [address] CERNER MILLENNIUM Sedimentation rate (09/20/2012 3:32 PM EDT) P athologist Signature Sed Rate 14 0 - 20 CERNER mm/hr MILLENNIUM Specimen Anatomical Collection Method Collection Time Receive d Time (Source) Location / / Volume Laterality Blood specimen 09/20/2012 3:32 PM 013 3:41 (specimen) EDT PM EDT Resulting Agency Comment Spec In Lab Lala Smith MD HEMATOLOGY ORDERABLES Performing Organization Address City/State/ZIP Code Phon e Number [place] [id number] [facility] documented in this encounter Visit Diagnoses Diagnosis Pruritus - Primary Unspecified pruritic disorder Angioedema Angioneurotic edema not elsewhere classi fied Chronic urticaria Other specified urticaria Elevated blood pressure Elevated blood pressure reading without diagnosis of hypertension documented in this encounter Care Teams Sex Therapist Relationship Specialty Start Date End Date Denise Darnell MD PCP - General 11/18/11 05/08/15 [facility] [place] [address] documented as of this encounter
--- OUTSIDE RECORDS SUMMARY | 2021-12-17 15:08 | XMS_ITS | Encounter Summary ---
:1975 Author Organization [facility] [place] [address] Care Team Providers Name Role Phone Denise Darnell MD Primary Care Provider Reason for Visit Reason Onset Date Comments Medication Refill 09/21/2012 Encounter Details Date Type Department Care Team Description 09/21/2012 Refill Internal Medicine at [facility] Yasmeen Posey MD [facility] [place] [address] GENERAL INTERNAL MEDICINE [phone] [place], [place] [address] (Wo rk) Social History Tobacco [...] this encounter Miscellaneous Notes Telephone Encounter - Jyothi Smallwood RN - 09/21/2012 9:15 AM EDT Pharmacy telephoned for clarification on Evita's Imitrex script - Take 50 to 100 mg at onset of BARRIOS,may repeat 2 hours later (not to exceed 200 mg in 24 hours) Does that sound right? Please let me know and I will call the pharmacy - documented in this encounter Plan of Treatment Not on filedocumented as of this encounter Visit Diagnoses Not on filedocumented in this encounter Care Teams Physician Office Specialist Relationship Specialty Start Date End Date Denise Darnell MD PCP - General 11/18/11 05/08/15 [facility] [place] [address] documented as of this encounter
--- OUTSIDE RECORDS SUMMARY | 2021-12-17 15:08 | XMS_ITS | Encounter Summary ---
:1975 Author Organization [facility] [place] [address] Care Team Providers Name Role Phone Denise Darnell MD Primary Care Provider Reason for Visit Reason Onset Date Comments Medication Refill 04/08/2012 Encounter Details Date Type Department Care Team Description 04/08/2012 Refill Internal Medicine at [facility] Mellissa Meza APRN [facility] [place] [address] GENERAL INTERNAL MEDICINE [phone] [place], [place] [address] (Wo rk) Social History Tobacco [...] on filedocumented in this encounter Care Teams Director Of Securities And Real Estate Relationship Specialty Start Date End Date Denise Darnell MD PCP - General 11/18/11 05/08/15 [facility] [place] [address] documented as of this encounter
--- OUTSIDE RECORDS SUMMARY | 2021-12-17 15:08 | XMS_ITS | Encounter Summary ---
:1975 Author Organization [facility] [place] [address] Care Team Providers Name Role Phone Marisa Pinto MD Primary Care Provider Reason for Visit Reason Onset Date Comments Other 10/20/2011 Encounter Details Date Type Department Care Team Description 10/20/2011 Telephone Internal Medicine at [facility] Josie Tony, Other [facility] [place] [address] Social History Tobacco Use Types Packs/Day Years Used Date Former Smoker Cigarettes 2 10 Quit: 09/05/19 11 Smokeless Tobacco: Never Used Comments: quits during Alcohol Use Standard Drinks/Week Comments No 0 (1 standard drink = 0.6 oz pure alcoho l) n/a Sex Assigned at Date Recorded Female 05/09/2020 7:27 PM EST documented as of this encounter Miscellaneous Notes Telephone Encounter - Josie Tony RN - 10/20/2011 12:43 PM EDT Called to ask the office to call her insurance company to see about getting her approval to attend an 8 week class called make peace with food overcoming overeating. [facility] and cost 160.00. The number to call is [phone]. Will talk with and if okay call and try to get prior authorization. documented in this encounter Plan of Treatment Not on filedocumented as of this encounter Visit Diagnoses Not on filedocumented in this encounter Care Teams White Hat Hacker Relationship Specialty Start Date End Date Marisa Pinto MD PCP - General 08/30/11 11/17/[address] [place] [id number] documented as of this encounter
--- OUTSIDE RECORDS SUMMARY | 2021-12-17 15:08 | XMS_ITS | Encounter Summary ---
:1975 Author Organization [facility] [place] [address] Care Team Providers Name Role Phone Denise Darnell MD Primary Care Provider Encounter Details Date Type Department Care Team Description 08/29/2012 Procedure visit Sleep Center at Dilip Valdez [facility]) [address] (pediatric) (Primary [place], [place] SLEEP DISORDERS Dx) [id number] CENTER [phone] [place], [place] [address] Social History Tobacco Use Types Packs/Day Years Used Date Former Smoker Cigarettes 2 10 Quit: 09/05/19 11 Smokeless Tobacco: Never Used Comments: quits during Alcohol Use Standard Drinks/Week Comments No 0 (1 standard drink = 0.6 oz pure alcoho l) n/a Sex Assigned at Date Recorded Female 05/09/2020 7:27 PM EST documented as of this encounter Progress Notes Dilip Valdez MD - 08/31/2012 3:20 PM EDT Images from the original note were not included. REPORT OF POSITIVE PRESSURE TITRATION History Of Present Illness: Evita Singleton is a 37 y.o. female who presents for a polysomnogram. Polysomnography: The patient's sleep was evaluated for one night at the [facility]. Sleep was monitored in accordance with recommended AASM guidelines. The recording also included oral/nasal airflow, chest and abdominal respiratory effort, nasal pressure, single channel EKG, intercostal EMG, bilateral tibialis EMG, and oxygen saturation (by pulse oximeter). Type of Positive Pressure Utilized: CPAP Comment: - Sleep/EEG: Sleep efficiency: normal Sleep architecture: normal REM Observed: yes Supine position observed: yes - Respiratory: CPAP was titrated from a pressure of 5cm to 16cm. A pressure of 16 cm pressure was demonstrated efficacious in REM sleep supine. Best result was achieved with a small quattro full face mask. Baseline SaO2: 95% Minimum SaO2: 71% - EKG: Normal sinus rhythm. - EMG: Unremarkable Assessment: Evita Singleton is a 37 y.o. female whose polysomnogram reveals an effective CPAP pressureof 16 cm of water. Patient observed supine and in REM at effective pressure. Sleep architecture was normal and no motor disorder identified. Spoke with patient by phone. She requires equipment - she chose [employer]. Recommendations: 1. CPAP set at a pressure of 16 cm with a small quattro full face mask. 2. Follow up appointment will be scheduled in PAP clinic in 2-3 weeks and 6-8 weeks, although patient in instructed to call sooner with problems or questions. [facility] SLEEP [facility] CPAP/BILEVEL REPORT Patient Name: Evita Singleton Study Type: Sleep Service Sex: Female Study Date: 08/29/2012 Date of : 1975 Hospital #: [id number] Age: 37 Referring Physician: Height: 5'9 Sleep Specialist: DILIP VALDEZ M.D. Weight: 346 Recording Tech: CLARA PackI: 51.1 Scoring Tech: OSKAR Maldonado SCORING TECHNOLOGIST COMMENTS: ECG: NSR Ectopy: None CPAP was titrated to 25emW4T where most to all irregular respirations and snoring episodes were eliminated. There was no significant PLM activity or EKG abnormalities. DED Description of study: CPAP/Bilevel Therapeutic Polysomnography was performed utilizing frontal, central & occipital EEG, EOG, submentalis EMG, oronasal thermocouple, nasal pressure, ECG, thoracic and abdominal inductance plethysmography, right and left anterior tibialis EMG, snore sensor, and pulse oximetry according to AASM established guidelines. CPAP/BILEVEL TREATMENT REPORT Therapeutic Analysis Sleep Architecture Therapeutic Start Time Lights Off: 23:37:34 Total Number of Stage Shifts: 102 Therapeutic End Time Lights On: 06:28:05 Number of Transitions to Stage 1: 17 Total Recording Time 410.5 minutes Total Number of Awakenings: 12 Total Sleep Time (TST): 391.5 minutes Number of REM Periods: 3 Sleep Efficiency: 95.4% REM Latency: 92.0 minutes Sleep Onset: 4.0 minutes REM Latency (minus Wake time): 84.0 minutes Stage Results Time (min.) % TST Latency (min.) Wake (after sleep onset): 15.0 - - N1: 18.5 4.7 0.0 N2: 150.0 38.3 12.5 N3: 45.0 11.5 50.5 REM: 178.0 45.5 92.0 Spontaneous Arousals* Total NREM REM Count: 12 10 2 Index (events/hr): 1.8 2.8 0.7 * (EEG Arousal activity not associated with Respiratory or PLM events). Respiratory Events Apneas Central Apnea Obstructive Apnea Mixed Apnea Count: 1 34 0 Index (events/hr.): 0.2 5.2 0.0 Mean Duration (sec.): 10 14 0 Longest Event (sec.): 10.0 19.7 0 REM Count: 0 0 0 NREM Count: 1 34 0 REM Index: 0.0 0.0 0.0 NREM Index 0.3 9.6 0.0 Supine Index 0.2 5.2 0.0 Non-supine Index 0.0 0.0 0.0 Hypopneas and RERAs Hypopnea 4% desat Hypopnea 3% or arousal RERA Count: 149 27 0 Index (events/hr.): 22.8 4.1 0.0 Mean Duration (sec.): 17.6 17.0 0 Longest Event (sec.): 44.1 34.5 0 REM Count: 20 10 0 NREM Count: 129 17 0 REM Index: 6.7 3.4 0.0 NREM Index: 36.3 4.8 0.0 Supine Count: 149 27 0 Non-Supine Count: 0 0 0 Supine Index: 22.9 4.1 0.0 Non-supine Index: 0.0 0.0 0.0 Apneas & Hypopneas (by Body-Position) Total Supine Non-Supine Count: 211 211 0 Index (events/hr): 32.3 32.4 0.0 * Results include all hypopneas and apneas. Apneas & Hypopneas (by Body-Position) Total Supine Non-Supine Count: 184 184 0 Index (events/hr): 28.2 28.3 0.0 *Results include only hypopneas with desaturations ? 4% and apneas. RDI (by Body-Position) Total Supine Non-Supine Count: 211 211 0 Index (events/hr): 32.3 32.4 0.0 * Results include all hypopneas, apneas and RERAs. Body Position by Time Non-Supine Supine Sleep (in minutes) 1.0 390.5 REM (in minutes) 0.5 177.5 NREM (in minutes) 0.5 213.0 Periodic Limb Movements(by Sleep Stages) Total PLMs PLMs w/ Arousals Count Index Count Index Total Sleep: 0 0.0 0 0.0 REM: 0 0.0 0 0.0 NREM: 0 0.0 0 0.0 Wake (after Lights Off): 0 0.0 0 0.0 Oxygen Saturation NREM REM TST Mean SaO2%: 95 97 96 Min. SaO2%: 75 71 71 % Time of SaO2 in range Awake NREM REM Total Sleep 90 - 100%: 93 86 96 91 80 - 89%: 4 9 2 6 70 - 79%: 0 0 0 0 60 - 69%: 0 0 0 0 50 - 59%: 0 0 0 0 < 50%: 0 0 0 0 Total Time (min) SaO2 < 90%: 1.2 28.1 6.5 34.6 Total Time (min) SaO2 < 89%: 0.8 23.7 4.9 28.6 Total Time (min) SaO2 < 88%: 0.4 19.8 3.5 23.3 Heart Rate NREM REM TST Mean HR (bpm): 65 70 67 Min. HR (bpm): 55 55 55 Max. HR (bpm): 79 79 79 A. Titration Analysis Chart (Duration) Pressure Level (cm H2O) Time in Minutes TST REM NREM Supine Non-Supine REM Supine 5/5/0 0 0 0 0 0 0 6/6/0 11 0 11 11 0 0 7/7/0 10 0 10 10 0 0 9/9/0 15 0 15 15 0 0 11/11/0 19 0 19 19 0 0 13/13/0 21 8 13 21 0 8 14/14/0 25 25 0 25 0 25 15/15/0 46 46 0 46 0 46 16/16/0 227 97 129 226 0 97 B. Titration Analysis Chart (Oxygen Saturation) Pressure Level Mean SaO2% Min SaO2% 5/5/0 94 91 6/6/0 94 85 7/7/0 90 78 9/9/0 90 76 11/11/0 89 75 13/13/0 91 71 14/14/0 94 73 15/15/0 97 90 16/16/0 98 90 C. Titration Analysis Chart (Respiratory) Pressure Level Respiratory (number) Time in Minutes Respiratory (index) cm H2O Central Apneas Obstructive Apneas Mixed Apneas Hypopnea (4%) Hypopneas (3% or Arousal) RERA AHI* NREM AHI REM AHI RDI Supine AHI* NonSupine AHI 5/5/0 0 0 0 1 1 0 128.6 128.6 0.0 128.6 128.6 0.0 6/6/0 0 0 0 19 23 0 119.5 119.5 0.0 119.5 119.5 0.0 7/7/0 0 8 0 17 17 0 140.0 140.0 0.0 140.0 140.0 0.0 9/9/0 0 10 0 24 26 0 140.0 140.0 0.0 140.0 140.0 0.0 11/11/0 0 15 0 32 33 0 144.7 144.7 0.0 144.7 144.7 0.0 13/13/0 0 0 0 27 33 0 91.8 98.4 81.0 91.8 91.8 0.0 14/14/0 0 0 0 12 18 0 41.6 0.0 41.6 41.6 42.4 0.0 15/15/0 0 0 0 - 1 0 1.3 0.0 1.3 1.3 1.3 0.0 16/16/0 1 0 0 1 1 0 0.5 0.9 0.0 0.5 0.5 0.0 *Includes all hypopneas and apneas Includes all hypopneas, apneas and RERAs CPAP/BILEVEL TREATMENT REPORT CPAP/Bilevel PLM Body Position documented in this encounter Plan of Treatment Not on filedocumented as of this encounter Visit Diagnoses Diagnosis Obstructive sleep apnea (adult) (pediatr ic) - Primary documented in this encounter Care Teams Hot Iron Worker Relationship Specialty Start Date End Date Denise Darnell MD PCP - General 11/18/11 05/08/15 [facility] [place] [address] documented as of this encounter
--- OUTSIDE RECORDS SUMMARY | 2021-12-17 15:08 | XMS_ITS | Encounter Summary ---
:1975 Author Organization [facility] [place] [address] Care Team Providers Name Role Phone Denise Darnell MD Primary Care Provider Reason for Visit Reason Onset Date Comments Medication Refill 04/11/2012 Encounter Details Date Type Department Care Team Description 04/11/2012 Refill Internal Medicine at Yasmeen Posey, GERD (gastroesophageal [facility] reflux disease) [facility] FELIPE NEVES (Primary Dx) [facility] [place] [address] MEDICINE [phone] [place], [place] [address] (Wo rk) Social History Tobacco [...] reflux documented in this encounter Care Teams Casing Machine Operator Relationship Specialty Start Date End Date Denise Darnell MD PCP - General 11/18/11 05/08/15 [facility] GENERAL [place] [address] documented as of this encounter
--- OUTSIDE RECORDS SUMMARY | 2021-12-17 15:08 | XMS_ITS | Encounter Summary ---
:1975 Author Organization [facility] [place] [address] Care Team Providers Name Role Phone Denise Darnell MD Primary Care Provider Encounter Details Date Type Department Care Team Description 07/28/2011 Orders Only Endocrinology at [facility] Kary Engel, Diabetes mellitus [facility] [place] [address] [facility] [phone] ENDOCRINOLOGY DE PT. [place], [place] [address] (Wo rk) Social History Tobacco [...] filedocumented as of this encounter Results (ABNORMAL) Lipid panel (fasting) (07/28/2011 10:18 AM EDT) athologist Signature Chol, Total 171 <=199 mg/dL [facility] Comment: Recommendations of the NCEP Adult Treatm ent Panel for the following risk cutoff thresholds for the [place] populatio n: Desirable: <200 mg/dL Borderline High: 200-239 mg/dL High: > or = 240 mg/dL Triglycerides 181 (H) <=149 mg/dL [facility] Comment: Reference Range: Normal triglycerides: ??<150 mg/dL Borderline high: ??150-199 mg/dL High: ??200-499 mg/dL Very high: ??>gj=775 mg/dL KEITH 2001; 285(19):1257-6529 HDL 39 (L) >=40 mg/dL [facility] Comment: Reference range: ??Low HDL: ?? < 40 mg/dL ??Normal: ?40-60 mg/dL ??Desirable: > 60 mg/dL KEITH 2001; 285(19):0947-3727 LDL Cholesterol 96 <=99 mg/dL [facility] Comment: Reference range: ?? Optimal: ?<100 mg/dL ?? Near Optimal/Above Optimal: ?? 100-1 29 mg/dL ?? Borderline high: ?130-159 mg/dL ?? High: ? 160-189 mg/dL ?? Very high: ?>hl=439 mg/dL KEITH 2001: 285(19):0406-7282 Chol/HDL Ratio 4.4 ratio [facility] Comment: A Cholesterol to HDL ratio below 4:1 is desirable. ??Studies suggest that increased CAD risk occurs at ratios abov e 5 for females and above 6 for men. ? [place] Heart Association ??(htt p://www.americanheart.org) ? Luzmaria Int Med, 1994; 121:641 ? AM J Med, 1998; 105(1A):48S Specimen Anatomical Collection Method Collection Time Receive d Time (Source) Location / / Volume Laterality Blood specimen 07/28/2011 10:18 2 (specimen) AM EDT 10:33 AM EDT Resulting Agency Comment Spec In Lab Kentrell Guerra MD CHEMISTRY ORDERABLES Performing Organization Address City/State/[place] [address] [facility] documented in this encounter Visit Diagnoses Diagnosis Diabetes mellitus Type II or unspecified type diabetes jose litus without mention of complication, not stated as uncontrolled documented in this encounter Care Teams Negative Notcher Relationship Specialty Start Date End Date Denise Darnell MD PCP - General 01/27/10 08/29/[address] [facility] [address] [facility] [place] [address] documented as of this encounter
--- OUTSIDE RECORDS SUMMARY | 2021-12-17 15:08 | XMS_ITS | Encounter Summary ---
:1975 Author Organization [facility] [place] [address] Care Team Providers Name Role Phone Marisa Pinto MD Primary Care Provider Encounter Details Date Type Department Care Team Description 08/30/2011 Office Visit Physical Therapy at Mariam Conklin, PT [facility] PHYSICAL MEDICINE & [place] [address] Right knee pain; [facility] Aurelia Darnell MD [facility] [place] [address] Arthritis [place] [phone] Social History Tobacco Use Types Packs/Day Years Used Date Former Smoker Cigarettes 2 10 Quit: 09/05/19 11 Smokeless Tobacco: Never Used Comments: quits during Alcohol Use Standard Drinks/Week Comments No 0 (1 standard drink = 0.6 oz pure alcoho l) n/a Sex Assigned at Date Recorded Female 05/09/2020 7:27 PM EST documented as of this encounter Progress Notes Aurelia Conklin, PT - 08/30/2011 8:23 AM EDT PHYSICAL THERAPY KNEE INITIAL EXAMINATION Date of Exam/First Treatment: 08/30/2011 Date of onset: 2 years Referring Provider: Tim Gonzales MD, JESUS ALBERTO Weaver Diagnosis: 1. Right knee pain (719.46AC) 2. Arthritis of knee, right (716.96R) History of current problem: Evita Singleton is a 36 y.o. female referred to physical therapy for right knee pain. Pain is worse onthe days she works. 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 She sits with her leg propped up during her lunch. Patient was referred to PT for a trial of a TENs unit for knee pain management. 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), lives with her aunt, uncle and 1 year old son, hobbies/leisure: swimming, regular exercise: pool therapy exercises independently and swimming 3 days/week and walking at work Functional limitations: difficulty with activity, climbing stairs, descending stairs, standing, walking, putting on shoes and socks and exercise Clinical Findings: Posture: Forward head , Thoracic kyphosis increased, Lordosis increased, Rounded shoulders, Pes Planus and Genu Valgus, knee alignment: mild valgus Gait: antalgic and stiff-legged Knee and Hip Range of Motion and strength: affected side: right AROM PROM MMT (/5) Knee flexion 121 erp 125 4+ knee extension 0 5- Hip flexion wnl 5 Hip extension wnl 4+ Hip ER wnl 4+ Hip IR wnl 4+ Hip aDDuction wnl 5 Hip aBDuction wnl 4 Unaffected side: left - 0-130 Special tests: Janet not performed SLR - Lackman - Varus Stress Test - P Valgus Stress Test - Anterior/Posterior Drawer - Joint Line Tenderness + Mac - Anastasiya + Apprehension not performed Palpation: none and moderate tenderness with palpation at: Medial joint line, Patella, Patellar tendon and Medial collateral ligament flexibility: decreased at iliopsoas, quadriceps, hamstring, ITB and piriformis Joint mobility: Normal Functional Assessment Tool: LEFS: 27/80 = 33.8% Clinical Evaluation and Diagnosis: These findings are consistent with right knee pain associated with OA. Patient would benefit from a trial of a TENs unit for pain management and continued LE strengthening on land and in water. Patientdemonstrated knowledge of use and purpose of TENs unit. Expect with skilled physical therapy interventions patient will be able to return to prior level of function. GOALS: Therapy Short Term Goals (3 weeks) Patient to... 1. be indep with home exercise program. 2. demonstrate knowledge and independence with use of a home TENs unit. 3. walk between rooms without difficulty. 4. put on/off her shoes and socks without difficulty. Therapy [facility] Goals (6 weeks) Patient to... 1. increase LEFS score to demo an increase in functional mobility. INITIAL TREATMENT INCLUDED: Examination and instruction in a home exercise program (refer to scan doc in chart review for details), patient education regarding physical therapy plan of care, anatomy and diagnosis. Instruction in purpose and use of a home TENs unit including dosage, electrode placement, settings and intensity. Self care use of CP and elevation for edema and pain management. Plan: Frequency and Duration: recheck in 2 weeks. Stretching, Therapeutic exercise, Patient/Family education, Posture and Home Exercise Program including use of home TENs unit TENs rental [facility] [place] Total Treatment time: 50 minutes Total Timed Code Treatment: 0 minutes The plan has been discussed with the patient and they agree with the plan of care. AURELIA CONKLIN PT documented in this encounter Miscellaneous Notes Miscellaneous - Mitul, Full Stack Net Developer - 01/13/2012 4:47 PM EST documented in this encounter Plan of Treatment Not on filedocumented as of this encounter Visit Diagnoses Diagnosis Right knee pain Pain in joint, lower leg Arthritis of knee, right Unspecified arthropathy, lower leg documented in this encounter Care Teams Professor Of Biological Sciences Relationship Specialty Start Date End Date Marisa Pinto MD PCP - General 08/30/11 11/17/[address] [place] [address] documented as of this encounter
--- OUTSIDE RECORDS SUMMARY | 2021-12-17 15:08 | XMS_ITS | Encounter Summary ---
:1975 Author Organization [facility] [place] [address] Care Team Providers Name Role Phone Denise Darnell MD Primary Care Provider Reason for Visit Reason Onset Date Comments Medication Refill 04/10/2012 Encounter Details Date Type Department Care Team Description 04/10/2012 Refill Internal Medicine at [facility] Yasmeen Posey MD [facility] Pipe duarte [facility] [place] [address] GENERAL INTERNAL MEDICINE [phone] [place], [place] [address] (Wo rk) Social History Tobacco [...] on filedocumented in this encounter Care Teams Marine Fuel Dock Attendant Relationship Specialty Start Date End Date Denise Darnell MD PCP - General 11/18/11 05/08/15 [facility] [place] [address] documented as of this encounter
--- OUTSIDE RECORDS SUMMARY | 2021-12-17 15:08 | XMS_ITS | Encounter Summary ---
:1975 [place] [address] Care Team Providers Name Role Phone Denise Darnell MD Primary Care Provider Reason for Visit Reason Onset Date Comments Results 09/04/2012 Patient would like a n appointment with you to go over study results based on a c onversation you had together. I have no openings for you, pl ease let me know how you would like her scheduled or do you prefer to call the patient yourself? Other 09/06/2012 Patient left a voice mail asking for machine and information. I returned her call, olesya tavarez and let her know we would have to wait for the final r esults of her study and as soon as we had that and or any other inf ormation we would call her. Expressed that I wasn't sure when juanita t would be but we would call as soon as we had information. Encounter Details Date Type Department Care Team Description 09/04/2012 Telephone Sleep Center at Marisa Valdez MD Results (Patient would [facility] like an appointment [address] with you to go over [place], [place] SLEEP DIS[place] [phone] CENTER a conversation you had [phone] [place], [place] [address] together. I have no [phone] (Wo rk) openings for you, please le t me know how you would like her scheduled or do you prefer to call the patient yoursel f? ); Other (Patient left a voice mail alf barboza for machine and information. I returned her call, left a vm and let her know we would have to wait fo r the final results o f her study and as so on as we had that and or any other informati on we would call her. Expressed that I wasn't sure when that would be but we would ca ll as soon as we had information.) Social History Tobacco Use Types Packs/Day Years Used Date Former Smoker Cigarettes 2 10 Quit: 09/05/19 11 Smokeless Tobacco: Never Used Comments: quits during Alcohol Use Standard Drinks/Week Comments No 0 (1 standard drink = 0.6 oz pure alcoho l) n/a Sex Assigned at Date Recorded Female 05/09/2020 7:27 PM EST documented as of this encounter Miscellaneous Notes Telephone Encounter - Marisa Valdez MD - 09/12/2012 5:03 PM EDT Spoke with patient. She chose [facility] for equipment. documented in this encounter Plan of Treatment Not on filedocumented as of this encounter Visit Diagnoses Not on filedocumented in this encounter Care Teams Scale Manager Relationship Specialty Start Date End Date Denise Darnell MD PCP - General 11/18/11 05/08/15 [facility] [place] [address] documented as of this encounter
--- OUTSIDE RECORDS SUMMARY | 2021-12-17 15:08 | XMS_ITS | Encounter Summary ---
:1975 Author Organization [facility] [place] [address] Care Team Providers Name Role Phone Denise Darnell MD Primary Care Provider Encounter Details Date Type Department Care Team Description 07/14/2012 Telephone Internal Medicine at [facility] [place] [address] Social History Tobacco Use Types Packs/Day Years Used Date Former Smoker Cigarettes 2 10 Quit: 09/05/19 11 Smokeless Tobacco: Never Used Comments: quits during Alcohol Use Standard Drinks/Week Comments No 0 (1 standard drink = 0.6 oz pure alcoho l) n/a Sex Assigned at Date Recorded Female 05/09/2020 7:27 PM EST documented as of this encounter Miscellaneous Notes Telephone Encounter - Geraldine Jones RN - 07/14/2012 5:45 PM EDT Spoke with Evita Lip swelling has completely resolved No difficulty Swallowing. Lip swelling started prior to lisinopril use She describes wheezing as usp blamed on her weight. Feels like she can take deep breathe in but can't always get Air out. 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 Uses many different lotions soaps shampoo etc Changes all the time Mid lower back has scab As well as back of head notes scabbed area does not think related to itching. Instructed may use benadryl OTC Stressed may cause drowsiness No breast swelling change temperature skin, She squeezes nipples to relieve itching. Fluid expressedappears to be breast milk in appearance. Will have prolactin level drawn Tuesday 07/18 before appt Appt [facility] clinic Tuesday 07/18 Dr Hernandez Telephone Encounter - Geraldine Jones, MICHELLE - 07/14/2012 2:29 PM EDT Luis Zaidi, Thank you for the message and for helping with reaching the patient! Here is what I think she should do: 1) For the hives and itching: - STOP taking Lisinopril - if she has hives, she should take benadryl (over the counter) - if her lip, something in her mouth, on her face swells, she should go to the ER - if her throat swells, if she has trouble breathing or is wheezing, she should call 911 immediately - if she feels any immediate concerns in addition to above, she should go to the ER 2) Fof milky discharge from her breasts: - she should come to the Lab section at 3 L to get a Prolactin level check, I have placed the order 3) She should be seen at the clinic [facility] for consideration of angioedema and to see why she has galactorrhea. I will be calling her again also. Thank you again! Yasmeen ----- Message ----- From: Geraldine Jones, MICHELLE Sent: 07/13/2012 5:59 PM To: Yasmeen Posey MD Subject: FW: Non-Urgent Medical Question Luis Arana Pt has appt 08/01 with you for follow up scheduled from May. You have no clinic time sooner. Did you want to speak with pt first or should I call her to get her in with someone in clinic sooner? Thanks For your help, geraldine ----- Message ----- From: Evita Singleton Sent: 07/12/2012 7:27 PM To: Dio John Team Nurse Subject: Non-Urgent Medical Question I need to know if I should see an care analyst or a skin dr. or both for the following symptoms: my ENTIRE body ,even my head , itches constantly throughout the day, for like 10 months now , which I haven't used anything different, my breasts are itching and milk comes out when I squeeze nipple to stop from itching , for over a year and I had woken up in the middle of the night with a bottom lip 3x normal and for the past year I've been getting hives on my legs and constantly on my arms, for no reason that I can think of , which stays for an hour and then goes to my other arm. Can I get tested for what I'm allergic too. All of these symptoms are driving me crazy.please suggest something to make them disappear documented in this encounter Plan of Treatment Not on filedocumented as of this encounter Visit Diagnoses Not on filedocumented in this encounter Care Teams Phosphoric Acid Supervisor Relationship Specialty Start Date End Date Denise Darnell MD PCP - General 11/18/11 05/08/15 [facility] [place] [address] documented as of this encounter
--- OUTSIDE RECORDS SUMMARY | 2021-12-17 15:08 | XMS_ITS | Encounter Summary ---
:1975 Author Organization [facility] [place] [address] Care Team Providers Name Role Phone Denise Darnell MD Primary Care Provider Reason for Referral Consultation (Routine) - Closed Specialty Diagnoses / Procedures Referred By Contact Refer red To Contact Sleep Center Diagnoses Routine adult health maintenance Yasmeen Posey MD [facility] Sleep Medicine [facility] [address] [facility] INTERNAL [place], [place] [phone] [place] [address] Referral ID Status Reason Start Date Expiration Date Visits V isits Requested Authorized [id number] Closed Consult, 05/25/2012 11/21/2012 1 1 Test & Treat onsultation (Routine) - Complete - Patient Will Schedule External Appt Specialty Diagnoses / Procedures Referred By Contact Refer red To Contact General Surgery Diagnoses Routine adult health maintenance Yasmeen Posey [facility] [place] [address] [facility] [place], [place] [phone] [place] [address] Referral ID Status Reason Start Expiration Visits Visits Date Date Requested Authorized [id number] Complete - Consult, 05/25/2012 11/21/2012 1 1 Patient Will Test & Schedule Treat External Appt Reason for Visit Reason Comments Follow-up Encounter Details Date Type Department Care Team Description 05/25/2012 Follow-Up Internal Medicine at Yasmeen Posey, Routine adult health maintenance (Primary Dx); [facility] Diabetes mellitus type 2 in obese; [facility] HALE[facility] (obstructive sleep apnea); [place] [address] GENERAL INTERNAL [phone] MEDICINE [place], [place] [address] (Wo rk) Social History Tobacco [...] Sign Reading Time Taken Comments Blood Pressure 154/78 05/25/2012 1:27 PM EDT Pulse 81 05/25/2012 1:27 PM EDT Temperature 36.7 ??C (98 ??F) 05/25/2012 1:27 PM EDT Respiratory Rate - - Oxygen Saturation 99% 05/25/2012 1:27 PM EDT Inhaled Oxygen Concentration - - Weight 162.4 kg (358 lb) 05/25/2012 1:27 PM EDT Height 172.7 cm (5' 8) 05/25/2012 1:27 PM EDT Body Mass Index 54.43 05/25/2012 1:27 PM EDT documented in this encounter Patient Instructions Patient InstructionsYasmeen Posey MD - 05/25/2012 2:07 PM EDT Ms. Singleton, It was good to see you! Please come to the lab at 3 L to check your kidney function, cholesterol, thyroid, and hemoglobin A1C (to evaluate for diabetes). Note that these labs need to drawn when you are fasting. Do not eat from midnight on the day before your lab draw and until the test is over. For weight gain: - weigh yourself twice a week and record your weight. - weight loss goal at 1 lb per week, try ro loose 4-5 lb in the next month before f/u appointment - try to exercise for 30 minutes during 5 days per week -provided A referral for you to be evaluated for bariatric surgery For sleep apnea: -referred you to the sleep lab to evaluate your sleep apnea and update your CPAP settings High blood pressure -started lisinopril 5 mg per day Follow up: - in 1-2 months documented in this encounter Progress Notes Nan Dunn MD - 05/25/2012 2:12 PM EDT The case was discussed at the time of the visit or immediately after the visit. The assessment and plan were formulated in discussion with me and I agree with them as documented. I have reviewed the history, physical exam, assessment and plan with the resident. Major issues discussed today: Here to follow up on wt loss plans. Also has Depression, h/o gestational DM, hypothyroidism, GERD, and Obesity, Gaining weight. Also C/o Flatus- failed gas-ex. H/o gestational DM; stopped metformin in 2009 . Hypothyroidism: on synthroid. H/o fluctuating BP Insomnia: sleeps 4 hrs per night, c/o polyuria and excessive thirst. H/o HALEY with c-pap, not using now. Dyspnea at rest. Denies chest pain. BP 154/78 Pulse 81 Temp(Src) 36.7 ??C (98 ??F) (Oral) Ht 172.7 cm (5' 8) Wt 162.388 kg (358lb) BMI 54.43 kg/m2 SpO2 99% ? No Plan: Morbid Obesity: check CMP, tsh, HA1c, urine microalb. Increase exercise. Log weights. Refer to Bariatric Surgery program. H/o gestational DM; Check labs to see if she is diabetic now. If so, restart metformin 500 mg BID, Eye exam due in Nov. HALEY: Follow up in sleep study center to re-evaluate HALEY. Depression: Continue prozac 20 mg daily. Hypothyroidism: check tsh HTN: Start lisinopril 5 mg daily. \ follow up in 2 months Yasmeen Posey MD - 05/25/2012 1:21 PM EDT Subjective: Patient ID: Evita Singleton is a 37 y.o. female. HPI Ms. Singleton is a 36 year old woman with a past medical history significant for morbid obesity, HTN, DM,hypothyroidism, anxiety, depression and GERD. Presents for a routine visit to follow up on weight loss. The following issues were discussed: 1) weight gain Last BMI 48 in 10/2011. At that time she was given concrete recommendations for monitoring calorie intake, keeping a journal of diet and weight, ane exercise. She adhered to the diet for about 3 weeks but the stopped. Per patient, her weight fluctuates, I am not loosing. She blames cravings - salty foods, chocolate. Craving associated with menstrual period cycles. Emotional eating. Willing do exercise by walking in place for 5 in x6 per day. She says her breathing has become more heavy with weight gain. Willing to weigh herself 2x /week and record. Willing to keep a log about which foods she can tolerate. 2) excessively gasy Worsened after salads. Tried gasEx and it didn't help. 3) lack of sleep Sleeps 4 hours per night. Constantly drinking during the day and urinates multiple times during the night. 4) HALEY Diagnosed with severe obstructive sleep apnea in 01/2009 per [facility] records and started on CPAP at 10 mm water with excellent control reported in follow up. The patient reports that she has not used herCPAP for a long time because she is afraid that she would not wake up for her 1 yo child if necessary while on CPAP because CPAP makes her sleep too sound. She was willing to be seen at the Sleep Center for a new evaluation when I explained to her that uncontrolled CPAP could lead to pulmonary hypertension and heart failure. 5) DM Prior DM history: 2007: Hgb A1C up to 6.5, started on metformin [id number]: Hgb A1C <6.1 2009 : Metformin stopped, put on insulin by OB-WAREHOUSE CLERK 07/10/10 Post-: insulin stopped and restarted on pre-pergnancy metformin 500mg QD ->Will be monitoring sugars fasting /1hr post-prandial. Given referral to Endocrinology. 07/2010: Saw Sandy Ashford, kept on metformin 500 BID, Hgb A1C 5.8 12/2010: HgbA1c of 5.8 in setting of life style modifications, metformin held, plan to follow up in3 months but I cannot see any A1C results beyond this Now the patient is not on metformin or any other drugs for hyperglycemia. Reports persistent thirst,frequent drinking and frequent urination. Review of Systems Constitutional: Positive for fatigue and unexpected weight change. Negative for fever and diaphoresis. HENT: Negative for congestion and sore throat. Respiratory: Positive for shortness of breath (even at rest). Cardiovascular: Negative for chest pain, palpitations and leg swelling. Gastrointestinal: Negative for nausea, vomiting, diarrhea, constipation, blood in stool, abdominal distention and anal bleeding. Genitourinary: Positive for frequency. Negative for dysuria, hematuria, flank pain and enuresis. Musculoskeletal: Negative for gait problem. Neurological: Negative for dizziness and light-headedness. Patient Active Problem List Diagnoses Code ??? Depression 311 ??? GERD (gastroesophageal reflux disease) 530.81 ??? Hyperlipidemia 272.4 ??? Hypothyroidism 244.9 ??? Obesity 278.00 ??? state, incidental V22.2 ??? Diabetes mellitus type 2 in obese 250.00 ??? AMA (advanced maternal age) multigravida 35+ 659.63 ??? Hypertension 401.9 ??? Shoulder impingement syndrome 726.2 ??? Type 2 diabetes mellitus 250.00 ??? Myopia 367.1 ??? Astigmatism 367.20 ??? Arthritis of knee, right 716.96 ??? Right knee pain 719.46 ??? Myopia with astigmatism 367.1 ??? HALEY (obstructive sleep apnea) 327.23 Past Surgical History Procedure Date ??? Created by interface SURGICAL EXTRACTIONS,REMOVAL OF IMPACTED TOOTH,PARTAILLY / Procedure Date: 01/01/2009 ??? Cholecystectomy 2005 ??? section 12/1999 twins ??? delivery only 07/10/2010 ?? DELIVERY performed by ELEANOR NELSON at [facility] ??? Unlisted evaluation service 2002 gall bladder...gall stones ??? Gastroenterology procedure 2002 gall bladder...gall stones ??? Genital surg proc, female unlisted 1999 2010 twins and single ... ??? Cranio/maxillofacial surg unlisted 2007 all 4 wisdom teeth out ??? Bladder surgery 2002 gall bladder Current Outpatient Prescriptions on File Prior to Visit Medication Sig Dispense Refill ??? FLUoxetine (PROZAC) 20 mg capsule Take 1 capsule by mouth daily. 90 capsule 3 ??? levothyroxine (SYNTHROID) 125 mcg tablet Take 1 tablet by mouth daily. 90 tablet 3 ??? Pantoprazole (PROTONIX) 40 mg GrPS Take 40 mg by mouth daily. 90 each 3 ??? SUMAtriptan (IMITREX) 50 mg tablet Take 1 tablet by mouth as needed for Migraine (migraine 50-100 mg--may repeat after 2h (not to exceed 200 mg in 24 hours)). 18 tablet 0 ??? naproxen (NAPROSYN) 250 mg tablet Take 1 tablet by mouth 2 times daily (with meals). ??? acetaminophen (TYLENOL ARTHRITIS PAIN) 650 mg CR tablet Take 650 mg by mouth every 8 hours as needed. Do not exceed 6 tabs in 24 hours ??? multivitamin (THERAGRAN) tablet Take 1 tablet by mouth daily. Body mass index is 54.43 kg/(m^2). Objective:BP 154/78 Pulse 81 Temp(Src) 36.7 ??C (98 ??F) (Oral) Ht 172.7 cm (5' 8) Wt 162.388 kg (358 lb) BMI 54.43 kg/m2 SpO2 99% ? No Physical Exam Constitutional: She is oriented to person, place, and time. She appears well- developed. No distress. Pleasant woman in NAD, morbidly obese, breathes somewhat heavily, not in respiratory distress HENT: Mouth/Throat: Oropharynx is clear and moist. No oropharyngeal exudate. Eyes: Pupils are equal, round, and reactive to light. Right eye exhibits no discharge. Left eye exhibits no discharge. No scleral icterus. Neck: No JVD present. No thyromegaly present. Cardiovascular: Normal rate, regular rhythm, normal heart sounds and intact distal pulses. Exam reveals no gallop and no friction rub. No murmur heard. Pulmonary/Chest: Effort normal and breath sounds normal. No respiratory distress. She has no wheezes. She has no rales. She exhibits no tenderness. Abdominal: Soft. Bowel sounds are normal. She exhibits no distension and no mass. There is no tenderness. There is no rebound and no guarding. Musculoskeletal: Trace ankle and peritibial edema bilaterally Lymphadenopathy: She has no cervical adenopathy. Neurological: She is alert and oriented to person, place, and time. She has normal reflexes. No cranial nerve deficit. Coordination normal. Skin: She is not diaphoretic. Psychiatric: She has a normal mood and affect. Assessment and Plan: Ms. Singleton is a 36 year old woman with a past medical history significant for progressing morbid obesity, HTN, DM, hypothyroidism, anxiety, depression and GERD. Presents for a routine visit to follow up on weight loss. Her obesity is progressing and likely contributing to her SOB and sleep apnea. Excessive thirst is concerning for uncontrolled DM. Her Hgb A1C, renal function, urine studies have not been checked for over a year. Overall, her obesity seems to be driving her other conditions and poses a significant risk for multiple organ systems. Given her young age and progress of the obesity despite dietary and exercise efforts, I recommended her to be seen by General Surgery for evaluation of whether she would benefit from a gastric bypass. Meanwhile, again recommended exercise and diet as part ofthe plan to loose weight, will refer to the [facility] for evaluation and treatment of HALEY, and check the control of her DM. Evita was seen today for follow-up . Diagnoses and associated orders for this visit: Obesity - Referral to Bariatric Surgery Program - Dietary and exercise recs as in HPI HALEY - Referral to Sleep Disorders Center Hypothyroidism - TSH; Future Diabetes Mellitus - CMP w/fasting Glucose; Future - Hemoglobin A1c; Future - Microalbumin, urine, random - If A1C abnormal, will restart metformin 500 BID and recommend opthalmologist visit HLD - Lipid panel (fasting); Future HTN - lisinopril (PRINIVIL;ZESTRIL) 5 mg tablet; Take 1 tablet by mouth daily. Follow up - In 2 months Yasmeen Posey MD, PhD Internal Medicine PGY1 documented in this encounter Plan of Treatment Scheduled Referrals Name Type Priority Associated Diagnoses Order S chedule Referral to Outpatient Referral Routine Routine adult health Ordered: Bariatric Surgery maintenance 05/25/2012 Program Referral to Sleep Outpatient Referral Routine Routine adult he alth Ordered: Disorders Center maintenance 05/25/2012 documented as of this encounter Results (ABNORMAL) Lipid panel (fasting) (06/07/2012 10:20 AM EDT) P athologist Signature Chol, Total 184 <=199 mg/dL CERNER MILLENNIUM Comment: Recommendations of the NCEP Adult Treatm ent Panel for the following risk cutoff thresholds for the [place] populatio n: Desirable: <200 mg/dL Borderline High: 200-239 mg/dL High: > or = 240 mg/dL Triglycerides 199 (H) <=149 mg/dL CERNER MILLENN IUM Comment: Reference Range: Normal triglycerides: ??<150 mg/dL Borderline high: ??150-199 mg/dL High: ??200-499 mg/dL Very high: ??>vw=550 mg/dL KEITH 2001; 285(19):4621-3852 HDL 36 (L) >=40 mg/dL SOCRATES MILLENNIUM Comment: Reference range: ??Low HDL: ?? < 40 mg/dL ??Normal: ?40-60 mg/dL ??Desirable: > 60 mg/dL KEITH 2001; 285(19):5868-2033 LDL Cholesterol 108 (H) <=99 mg/dL SOCRATES NOONAN NIUM Comment: Reference range: ?? Optimal: ?<100 mg/dL ?? Near Optimal/Above Optimal: ?? 100-1 29 mg/dL ?? Borderline high: ?130-159 mg/dL ?? High: ? 160-189 mg/dL ?? Very high: ?>as=822 mg/dL KEITH 2001: 285(19):7996-4735 Chol/HDL Ratio 5.1 ratio CEREKTA MILLBOSSMANI UM Comment: A Cholesterol to HDL ratio below 4:1 is desirable. ??Studies suggest that increased CAD risk occurs at ratios abov e 5 for females and above 6 for men. ? [place] Heart Association ??(htt p://www.americanheart.org) ? Luzmaria Int Med, 1994; 121:641 ? AM J Med, 1998; 105(1A):48S Specimen Anatomical Collection Method Collection Time Receive d Time (Source) Location / / Volume Laterality Blood specimen 06/07/2012 10:20 04201 3 (specimen) AM EDT 10:28 AM EDT Resulting Agency Comment Spec In Lab Nan Dunn MD CHEMISTRY ORDERABLES Performing Organization Address City/State/[place] [address] CERNER MILLENNIUM (ABNORMAL) Hemoglobin A1c (06/07/2012 10:20 AM EDT) Analysis Performed At [facility] Time Signature Hemoglobin A1C 6.6 (H) 4.3 - 6.1 CERNER % MILLENNIUM Comment: The [place] Diabetes Association (ADA) has stated that HbA1c [...] -S66. Est Avg Gluc 143 mg/dL CERNER MILLENNIUM Comment: eAG equivalents for HbA1c percentages: HbA1c(%) ?eAG(mg/dL) 6.0 ?126 6.5 ?140 7.0 ?154 7.5 ?169 8.0 ?183 8.5 ?197 9.0 ?212 9.5 ?226 10.0 ? 240 Limitations: The eAG calculation has not been validated on women, individuals below 18 years old and above 70 years old, and individuals with hemoglobinopathies. Additional resources are available on e ADA website: ??http://professional.diabetes.org/gluc osecalculator.aspx Angelo MULLEN, Ariel J, Bill R, et al. ??Tr anslating the A1C assay into estimated average glucose values. ??Diabetes Care 2008:31(8):7612-7692. Specimen Anatomical Collection Method Collection Time Receive d Time (Source) Location / / Volume Laterality Blood specimen 06/07/2012 10:20 3 (specimen) AM EDT 10:28 AM EDT Resulting Agency Comment Spec In Lab Nan Dunn MD CHEMISTRY ORDERABLES Performing Organization Address City/State/[place] [address] [facility] (ABNORMAL) CMP w/fasting Glucose (06/07/2012 10:20 AM EDT) P athologist Signature Glucose 108 (H) 65 - 99 [facility] Fasting mg/dL [facility] Comment: ?Fasting* Glucose Interpretive C riteria Normal ?65-99 mg/dL Impaired Fasting glucose ?100-125 mg/dL Consistent with Diabetes Mellitus ? >or= 126 mg/dL *Fasting is defined as no caloric intake for at least 8 hours In the absence of unequivocal hypergly cemia a plasma glucose value of >or= 126 mg/dL should be repeated on a subseq u day. Diagnosis and Classification of Diabetes Mellitus, Position Statement from the [place] Diabetes Association. ??Diabete s Care, Volume 33, Supplement 1, Mar 2009 BUN 13 8 - 18 mg/dL CERNER MILLENNIUM Creatinine 0.80 0.70 - 1.20 mg/dL CERNER MILL ENNIUM Comment: Please note that the pediatric reference intervals supplied above were not validated at [facility]. Results from pediatri c patients should be [...] Organization Address City/State/[place] [address] CERNER MILLENNIUM (ABNORMAL) TSH (06/07/2012 10:20 AM EDT) P athologist Signature TSH 7.77 (H) 0.27 - 4.20 CERNER mcIU/mL MILLENNIUM Specimen Anatomical Collection Method Collection Time Receive d Time (Source) Location / / Volume Laterality Blood specimen 06/07/2012 10:20 04/201 3 (specimen) AM EDT 10:28 AM EDT Resulting Agency Comment Spec In Lab Nan Dunn MD CHEMISTRY ORDERABLES Performing Organization Address City/State/ZIP [place] [address] [facility] documented in this encounter Visit Diagnoses Diagnosis Routine adult health maintenance - Prima ry Routine general medical examination at a health care facility Diabetes mellitus type 2 in obese Type II or unspecified type diabetes jose litus without mention of complication, not stated as uncontrolled HALEY (obstructive sleep apnea) Obstructive sleep apnea (adult) (pediatr ic) Obesity Obesity, unspecified documented in this encounter Care Teams Cashier Ticket Selling Relationship Specialty Start Date End Date Denise Darnell MD PCP - General 11/18/11 05/08/[address] [facility] [address] [place] [address] documented as of this encounter
--- OUTSIDE RECORDS SUMMARY | 2021-12-17 15:08 | XMS_ITS | Encounter Summary ---
:[address] [place] [address] Care Team Providers Name Role Phone Denise Darnell MD Primary Care Provider Encounter Details Date Type Department Care Team Description 01/16/2013 Office Visit Sleep Center at Roberto Reynoso MD HALEY (obstructive [facility] sleep apnea) (Primary [address] Dx) [place], [place] SLEEP DISORDERS [id number] CENTER [phone] [place], [place] [address] (Wo rk) Social History Tobacco [...] Sign Reading Time Taken Comments Blood Pressure 124/80 01/16/2013 2:54 PM EST Pulse 78 01/16/2013 2:54 PM EST Temperature - - Respiratory Rate - - Oxygen Saturation 97% 01/16/2013 2:54 PM EST Inhaled Oxygen Concentration - - Weight 153.8 kg (339 lb) 01/16/2013 2:54 PM EST Height 175.3 cm (5' 9) 01/16/2013 2:54 PM EST Body Mass Index 50.06 01/16/2013 2:54 PM EST documented in this encounter Progress Notes Ashanti Blackman MD - 02/05/2013 3:41 PM EST I evaluated this Ms. Evita Singleton with Dr. Reynoso and performed moran aspects of the history and examination. I actively participated in the formulation of the management strategy. I have reviewed Dr. Reynoso's note and agree with the assessment and recommendations. ASHANTI BLACKMAN MD Roberto Reynoso MD - 01/19/2013 12:31 PM EST Sleep Medicine Follow-Up Note HPI: Ms. Evita Singleton is a 37 y.o. female with obstructive sleep apnea (HALEY). She is here for a follow up visit. Review of prior records: 01/09/09: Undergoes sleep study for the evaluation of snoring, apneas, gasping, and EDS. Total AHI 74.6 (includes all hypopneas and apneas). CMS AHI 33.6 (includes only hypopneas with desaturation >= 4% and apneas). Weight 283.4 lbs (BMI 41.8). 05/07/2009: Undergoes CPAP titration. Weight 289.9 lbs (BMI 43.4). Pressure of 10 cm effective in REM supine. Prescribed CPAP at this pressure. Uses machine for one week and then discontinues it. 08/03/2012: Presents with persistent symptoms. 08/29/2012: Undergoes CPAP titration from 5 - 16 cm. Weight 346 lbs (BMI 51.1). Pressure of 16 cm effective in REM supine. Prescribed CPAP at 16 cm. Treatment: CPAP Pressure: 16 Interface: FFM Fit: occ leak HHC: KMP Patient perceived outcome: more awake and alert; does not feel sleepy while driving Mask intolerance: no Pressure intolerance: no Aerophagia: no Air hunger: no Sleep pattern: 12 - 2 am to 5 - 7 am; balancing children, house hold chores, and school work Night time symptoms: [place]: 5 Ongoing snoring: occasional Mouth breathing: yes Dry mouth: no Nocturnal gasping: no Day time symptoms: Naps: 1 - 2 per week Involuntary dozing: no Feeling sleepy while driving: no Close calls related to sleepiness: no Accidents related to sleepiness: no Review of systems: Nasal obstruction: no Change in weight: decreased; trying to loose weight Compliance Card Data: Date Range: 09/17/12 - 01/15/13 Settin Residual AHI: 1.5 Vibratory Snore Index: 21.9 % Night in Large Leak: 0.2% Average usage days used: 4 hrs 59 min % Days used: 65.3% % Days with Usage > 4 hrs: 48.8% Patient Active Problem List Diagnosis Code ??? [...] 367.1 ??? HALEY (obstructive sleep apnea) 327.23 ??? Pruritus 698.9 ??? Angioedema 995.1 ??? Elevated blood pressure 796.2 ??? Chronic urticaria 708.8 Past Medical History Diagnosis Date ??? Diabetes [...] of migraines ??? Hyperlipidemia ??? Hypertensive disease 2005 high blood pressure ??? Musculoskeletal disease 2011 knee arthritis ??? Breathing problem 2004 slight asthma...sleep apnea...bronchitis ??? Elevated cholesterol 2005 high chloresterol ??? Chronic pain 2009 right side...leg, knee,elbow,shoulder foot ??? Circulatory disease 2009 varicose veins ??? Diabetes 2008 diabetic...gestational diabetes ??? Digestive problems 2005 gerd...heart burn ??? ENT disease 1982 ear infections...strep throat ??? Eye problems 2007 stigmatism ??? Headache 2000 migraine and regular headaches ??? Urinary disorder 2004 urinary incontinence with stress...gall stones ??? Mental or behavioral problem 2003 depression anxiety ocd ptsd obese with dv partner 18 yrs ??? Skin disorder 1984 acne ??? Hormone disorder 2005 thyroidism ??? Chronic urticaria 09/21/2012 Past Surgical History Procedure Date ??? Created by interface SURGICAL EXTRACTIONS,REMOVAL OF IMPACTED TOOTH,PARTAILLY Procedure Date: 01/01/2009 ??? Cholecystectomy 2006 ??? section 12/1999 twins ??? delivery only 07/10/2010 ?? DELIVERY performed by ELEAN[facility] NELSON at [facility] ??? Unlisted evaluation service 2002 gall bladder...gall stones ??? Gastroenterology procedure 2002 gall bladder...gall stones ??? Genital surg proc, female unlisted 1999 2010 twins and single ... ??? Cranio/maxillofacial surg unlisted 2007 all 4 wisdom teeth out ??? Bladder surgery 2002 gall bladder Medications: Reviewed Outpatient Prescriptions Marked as Taking for the 01/16/13 encounter (Office Visit) with Roberto Reynoso MD Medication Sig Dispense Refill ??? SUMAtriptan (IMITREX) [...] daily. 30 g 1 ??? levothyroxine (SYNTHROID) 25 mcg tablet Take [...] by mouth daily. Body mass index is 50.06 kg/(m^2). Filed Vitals: 01/16/13 1454 BP: 124/80 Pulse: 78 Height: 175.3 cm (5' 9) Weight: 153.769 kg (339 lb) SpO2: 97% PE: General: Awake. Alert. Comfortable. NAD. Normal speech and comprehension. Mood stable. Pulmonary: Breathing non-labored. Assessment and Plan: Ms. Evita Singleton is a 37 y.o. female with obstructive sleep apnea. Her AHI is at goal. Leak data appears unremarkable. Subjectively she is finding benefit from her CPAP machine. However her usage is less than desirable. Importance of using the machine every time she sleeps and for the maximum number of hours possible was discussed with her. She has been advised to get her supplies changed regularly and follow up over here in 3 months. Final recommendations: 1. Continue CPAP at 16 cm. 2. Increase usage - see above. 3. Follow up in 3 months. This case was supervised by Dr. Blackman who saw the patient and participated in the formulation of the above plan. documented in this encounter Plan of Treatment Not on filedocumented as of this encounter Visit Diagnoses Diagnosis HALEY (obstructive sleep apnea) - Primary Obstructive sleep apnea (adult) (pediatr ic) documented in this encounter Care Teams Rfid Engineer Relationship Specialty Start Date End Date Denise Darnell MD PCP - General 11/18/11 05/08/15 [facility] GENERAL [place] [address] documented as of this encounter
--- OUTSIDE RECORDS SUMMARY | 2021-12-17 15:08 | XMS_ITS | Encounter Summary ---
:1975 Author Organization [facility] [address] Care Team Providers Name Role Phone Denise Darnell MD Primary Care Provider Reason for Visit Reason Comments Follow-up obesity Encounter Details Date Type Department Care Team Description 08/25/2011 Follow-Up Internal Medicine at Mellissa Meza, Hyp othyroid (Primary Dx); [facility] Obesity; [facility] [address] GENERAL INTERNAL [phone] MEDICINE [place], [place] [address] (Wo rk) Social History Tobacco Use Types Packs/Day Years Used Date Former Smoker Cigarettes 2 10 Quit: 09/05/19 11 Smokeless Tobacco: Never Used Comments: quits during Alcohol Use Standard Drinks/Week Comments No 0 (1 standard drink = 0.6 oz pure alcoho l) n/a Sex Assigned at Date Recorded Female 05/09/2020 7:27 PM EST documented as of this encounter Patient Instructions Patient InstructionsMellissa Meza, BLANCA - 08/25/2011 4:21 PM EDT Images from the original note were not included. [facility] Healthy Lifestyle: After Your Visit Your Care Instructions A healthy lifestyle can help you feel good, stay at a healthy weight, and have plenty of energy for both work and play. A healthy lifestyle is something you can share with your whole family. A healthy lifestyle also can lower your risk for serious health problems, such as high blood pressure, heart disease, and diabetes. You can follow a few steps listed below to improve your health and the health of your family. Follow-up care is a moran part of your treatment and safety. Be sure to make and go to all appointments, and call your doctor if you are having problems. It???s also a good idea to know your test resultsand keep a list of the medicines you take. How can you care for yourself at home? ?? Do not eat too much sugar, fat, or fast foods. You can still have dessert and treats now and then. The goal is moderation. ?? Start small to improve your eating habits. Pay attention to portion sizes, drink less juice and soda pop, and eat more fruits and vegetables. ?? Eat a healthy amount of food. A 3-ounce serving of meat, for example, is about the size of a Eggs Overnightf cards. Fill the rest of your plate with vegetables and whole grains. ?? Limit the amount of soda and sports drinks you have every day. Drink more water when you are thirsty. ?? Eat at least 5 servings of fruits and vegetables every day. It may seem like a lot, but it is nothard to reach this goal. A serving or helping is 1 piece of fruit, 1 cup of vegetables, or 2 cups ofleafy, raw vegetables. Have an apple or some carrot sticks as an afternoon snack instead of a candy bar. Try to have fruits and/or vegetables at every meal. ?? Make exercise part of your daily routine. You may want to start with simple activities, such as walking, bicycling, or slow swimming. Try to be active 30 to 60 minutes every day. You do not need to do all 30 to 60 minutes all at once. For example, you can exercise 3 times a day for 10 or 20 minutes. Moderate exercise is safe for most people, but it is always a good idea to talk to your doctor before starting an exercise program. ?? Keep moving. Mow the lawn, work in the garden, or clean your house. Take the stairs instead of the elevator at work. ?? If you smoke, quit. People who smoke have an increased risk for heart attack, stroke, cancer, andother lung illnesses. Quitting is hard, but there are ways to boost your chance of quitting tobacco for good. ?? Use nicotine gum, patches, or lozenges. ?? Ask your doctor about stop-smoking programs and medicines. ?? Keep trying. In addition to reducing your risk of diseases in the future, you will notice some benefits soon after you stop using tobacco. If you have shortness of breath or asthma symptoms, they will likely get better within a few weeks after you quit. ?? Limit how much alcohol you drink. Moderate amounts of alcohol (up to 2 drinks a day for men, 1 drink a day for women) are okay. But drinking too much can lead to liver problems, high blood pressure,and other health problems. Family health If you have a family, there are many things you can do together to improve your health. ?? Eat meals together as a family as often as possible. ?? Eat healthy foods. This includes fruits, vegetables, lean meats and dairy, and whole grains. ?? Include your family in your fitness plan. Most people think of activities such as jogging or tennis as the way to fitness, but there are many ways you and your family can be more active. Anything that makes you breathe hard and gets your heart pumping is exercise. Here are some tips: ?? Walk to do errands or to take your child to school or the bus. ?? Go for a family bike ride after dinner instead of watching TV. Where can you learn more? Visit our health information library at [email or web address] [email or web address]. You can also view health information on [employer], your personal patient account. Log in or sign up today. Enter U807 in the search box to learn more about A Healthy Lifestyle: After Your Visit. ?? [id number] Shotlst. Care instructions adapted under license by [facility]. This care instruction is for use with your licensed healthcare professional. If you have questionsabout a medical condition or this instruction, always ask your healthcare professional. [employer] disclaims any warranty or liability for your use of this information. Content Version: 9.1.097062; Last [facility]: [facility] Hyp[facility]: After Your Visit Your Care Instructions You have hypothyroidism, which means that your body is not making enough thyroid hormone. This hormone helps your body use energy. If your thyroid level is low, you may feel tired, be constipated, havean increase in your blood pressure, or have dry skin or memory problems. You may also get cold easily, even when it is warm. Women with low thyroid levels may have heavy menstrual periods. A blood test to find your thyroid-stimulating hormone (TSH) level is used to check for hypothyroidism. A high TSH level may mean that you have low thyroid. When your body is not making enough thyroid hormone, TSH levels rise in an effort to make the body produce more. The treatment for hypothyroidism is to take thyroid hormone pills. You should start to feel better in 1 to 2 weeks. But it can take several months to see changes in the TSH level. You will need regularvisits with your doctor to make sure you have the right dose of medicine. Most people need treatment for the rest of their lives. You will need to see your doctor regularly to have blood tests and to make sure you are doing well. Follow-up care is a moran part of your treatment and safety. Be sure to make and go to all appointments, and call your doctor if you are having problems. It???s also a good idea to know your test resultsand keep a list of the medicines you take. How can you care for yourself at home? ?? Take your thyroid hormone medicine exactly as prescribed. Call your doctor if you think you are having a problem with your medicine. Most people do not have side effects if they take the right amount of medicine regularly. ?? Take the medicine 30 minutes before breakfast, and do not take it with calcium, vitamins, or iron. ?? Do not take extra doses of your thyroid medicine. It will not help you get better any faster, andit may cause side effects. ?? If you forget to take a dose, do NOT take a double dose of medicine. Take your usual dose the next day. ?? Tell your doctor about all prescription, herbal, or tuyq-pwi-wbbodhn products you take. ?? Take care of yourself. Eat a healthy diet, get enough sleep, and get regular exercise. When should you call for help? Call 911 anytime you think you may need emergency care. For example, call if: ?? You passed out (lost consciousness). ?? You have severe trouble breathing. ?? You have a very slow heartbeat (less than 60 beats a minute). ?? You have a low body temperature (95??F or below). Call your doctor now or seek immediate medical care if: ?? You feel tired, sluggish, or weak. ?? You have trouble remembering things or concentrating. ?? You do not begin to feel better 2 weeks after starting your medicine. Watch closely for changes in your health, and be sure to contact your doctor if you have any problems. Where can you learn more? Visit our health information library at [email or web address] [facility] franc[facility] [email or web address]. You can also view health information on [employer], your personal patient account. Log in or sign up today. Enter N862 in the search box to learn more about Hypothyroidism: After Your Visit. ?? [id number] Shotlst. Care instructions adapted under license by [facility]. This care instruction is for use with your licensed healthcare professional. If you have questionsabout a medical condition or this instruction, always ask your healthcare professional. [employer]lst disclaims any warranty or liability for your use of this information. Content Version: 9.1.912294; Last Revised: June 29, 2010 documented in this encounter Progress Notes Mellissa Meza APRN - 08/25/2011 4:44 PM EDT Subjective: Patient ID: Evita Singleton is a 36 y.o. female. HPI Evita is new to me here with concern about her weight. She has tried previous instructions on portion control but at this point has noted that she does emotional eating to the point that she is too full. Frequent menses - had 3 last month and heavier than normal. Review of Systems Constitutional: Negative for activity change (doing swimming and weights currently) and appetite change (just eats after eating for pleasure). Objective: Physical Exam Vitals reviewed. Constitutional: She appears well-developed and well-nourished. Assessment and Plan: Evita was seen today for follow-up of obesity. Discussed option with emotional eating and gave her information on cognitive eating disorder - [place] mindfulness emotional eating. Also the numberfor the bariatric program. Noted her TSH was high - discussed the problems with this including weight gain (although she knows that she eats too much). Also frequent heavy menses so suggested that she increase the synthroid to 150mcg and recheck in 6 weeks then if still having heavy frequent bleeding will refer to ASSET PROTECTION OFFICER. Called Endocrine (nursing staff) to inform them of the change since it looks like the labs from July were generated from Dr. Ashford's office. Follow up with new PCP in the next few weeks. Diagnoses and associated orders for this visit: Hypothyroid - TSH; Future Other Orders - levothyroxine (SYNTHROID) 25 mcg tablet; Take 1 tablet by mouth daily. documented in this encounter Plan of Treatment Not on filedocumented as of this encounter Results TSH (10/04/2011 10:15 AM EDT) P athologist Signature TSH 3.93 0.27 - 4.20 CERNER mcIU/mL MILLENNIUM Specimen Anatomical Collection Method Collection Time Receive d Time (Source) Location / / Volume Laterality Blood specimen 10/04/2011 10:15 2 (specimen) AM EDT 10:22 AM EDT Resulting Agency Comment Spec In Lab Amrik Spence MD CHEMISTRY ORDERABLES Performing Organization Address City/State/ZIP Code [place] [address] [facility] ELIEENNIUM documented in this encounter Visit Diagnoses Diagnosis Hypothyroid - Primary Unspecified hypothyroidism Obesity Obesity, unspecified Heavy menses Excessive or frequent menstruation documented in this encounter Care Teams Regrader Relationship Specialty Start Date End Date Denise Darnell MD PCP - General 01/27/10 08/29/[address] [facility] GENERAL [place] [address] documented as of this encounter
--- OUTSIDE RECORDS SUMMARY | 2021-12-17 15:08 | XMS_ITS | Encounter Summary ---
:1975 Author Organization [facility] [address] Care Team Providers Name Role Phone Denise Darnell MD Primary Care Provider Encounter Details Date Type Department Care Team Description 09/21/2012 Telephone Allergy at [facility] Lala Smith MD [facility] [place] [address] ALLERGY AND IMMUNOLOGY [phone] [place], [place] [address] (Wo rk) Social History Tobacco [...] this encounter Miscellaneous Notes Telephone Encounter - Jinny Ng - 09/21/2012 2:50 PM EDT PA approved for Levocetirizine 5 mg tabs x one yr under dx of chronic urticaria. Pharmacy contacted,prescription is being filled. Telephone Encounter - Jinny Ng - 09/21/2012 1:28 PM EDT I called [place] [employer] to request a PA on the Xyzal 5 mg. [place] [employer] denied the Xyzal. The only two diagnoses that would allow this medication to be dispensed is allergic rhinitis or chronic idiopathic urticaria - not pruritis. How do you wish to pursue this? documented in this encounter Plan of Treatment Not on filedocumented as of this encounter Visit Diagnoses Not on filedocumented in this encounter Care Teams Icu Nurse Relationship Specialty Start Date End Date Denise Darnell MD PCP - General 11/18/11 05/08/15 [facility] GENERAL [place] [address] documented as of this encounter
--- OUTSIDE RECORDS SUMMARY | 2021-12-17 15:08 | XMS_ITS | Encounter Summary ---
:1975 Author Organization [facility] [place] [address] Care Team Providers Name Role Phone Denise Darnell MD Primary Care Provider Reason for Visit Reason Onset Date Comments Medication Refill 04/10/2012 Encounter Details Date Type Department Care Team Description 04/10/2012 Refill Internal Medicine at [facility] Yasmeen Posey MD [facility] [address] [place] [address] GENERAL INTERNAL MEDICINE [phone] [place], [place] [address] (Wo rk) Social History Tobacco [...] on filedocumented in this encounter Care Teams Radio/Tv Technician Relationship Specialty Start Date End Date Denise Darnell MD PCP - General 11/18/11 05/08/15 [facility] GENERAL [place] [address] documented as of this encounter
--- OUTSIDE RECORDS SUMMARY | 2021-12-17 15:08 | XMS_ITS | Encounter Summary ---
:1975 Author Organization [facility] [place] [address] Care Team Providers Name Role Phone Denise Darnell MD Primary Care Provider Reason for Referral Consultation (Routine) - Closed Specialty Diagnoses / Procedures Referred By Contact Refer red To Contact Nutrition Diagnoses Obesity Yasmeen Posey MD [facility] [address] [facility] [place] [address] [place] [address] Referral ID Status Reason Start Date Expiration Visits Visits Date Requested Authorized [id number] Closed Continuity of 06/19/2012 12/16/2012 1 1 Care Encounter Details Date Type Department Care Team Description 06/19/2012 [facility] MD Yasmeen [facility] [place] [address] GENERAL INTERNAL [phone] MEDICINE [place] [id number] (Wo rk) Social History Tobacco Use Types Packs/Day Years Used Date Former Smoker Cigarettes 2 10 Quit: 09/05/19 11 Smokeless Tobacco: Never Used Comments: quits during Alcohol Use Standard Drinks/Week Comments No 0 (1 standard drink = 0.6 oz pure alcoho l) n/a Sex Assigned at Date Recorded Female 05/09/2020 7:27 PM EST documented as of this encounter Plan of Treatment Scheduled Referrals Name Type Priority Associated Diagnoses Order S chedule Referral to Outpatient Referral Routine Obesity Ordered: Nutrition Services 3 documented as of this encounter Visit Diagnoses Diagnosis Obesity - Primary Obesity, unspecified documented in this encounter Care Teams Jewel Gauger Relationship Specialty Start Date End Date Denise Darnell MD PCP - General 11/18/11 05/08/[address] [facility] [address] [place] [address] documented as of this encounter
--- OUTSIDE RECORDS SUMMARY | 2021-12-17 15:08 | XMS_ITS | Encounter Summary ---
:1975 Author Organization [facility] [place] [address] Care Team Providers Name Role Phone Denise Darnell MD Primary Care Provider Encounter Details Date Type Department Care Team Description 07/12/2012 Office Visit Internal Medicine at [facility] Mo rbid obesity with BMI of 50.0-59.9, adult (Primary Dx); [facility] LD GERD (gastroesophageal reflux disease) [facility] [place] [phone] Social History Tobacco Use Types Packs/Day Years Used Date Former Smoker Cigarettes 2 10 Quit: 09/05/19 11 Smokeless Tobacco: Never Used Comments: quits during Alcohol Use Standard Drinks/Week Comments No 0 (1 standard drink = 0.6 oz pure alcoho l) n/a Sex Assigned at Date Recorded Female 05/09/2020 7:27 PM EST documented as of this encounter Progress Notes [facility] LD - 07/12/2012 2:44 PM EDT Outpatient Nutrition Visit S: I know I need to lose weight but I also have a lot of gas and bloating and GERD. O: Patient Active Problem List Diagnoses Code ??? [...] 367.1 ??? HALEY (obstructive sleep apnea) 327.23 Wt Readings from Last 3 Encounters: 05/25/12 162.388 kg (358 lb) 10/12/11 149.687 kg (330 lb) 08/25/11 147.963 kg (326 lb 3.2 oz) Wt Today is 351.8lbs Vitals 05/25/2012 Height (Metric) 172.7 cm Weight (Kazakh) 358 lbs Weight (Metric) 162.388 kg BODY MASS INDEX 54.45 kg/m2 Current outpatient prescriptions:levothyroxine (SYNTHROID) 25 mcg tablet, Take 1 tablet by mouth daily. Take with 125 mcg tablet to make total dose 150 mcg per day, Disp: 60 tablet, Rfl: 0; lisinopril (PRINIVIL;ZESTRIL) 5 mg tablet, Take 1 tablet by mouth daily., Disp: 90 tablet, Rfl: 3; levothyroxine(SYNTHROID) 125 mcg tablet, Take 1 tablet by mouth daily., Disp: 90 tablet, Rfl: 12 FLUoxetine (PROZAC) 20 mg capsule, Take 1 capsule by mouth daily., Disp: 90 capsule, Rfl: 3; Pantoprazole (PROTONIX) 40 mg GrPS, Take 40 mg by mouth daily., Disp: 90 each, Rfl: 3; SUMAtriptan (IMITREX)50 mg tablet, Take 1 tablet by mouth as needed for Migraine (migraine 50-100 mg--may repeat after 2h(not to exceed 200 mg in 24 hours))., Disp: 18 tablet, Rfl: 0 naproxen (NAPROSYN) 250 mg tablet, Take 1 tablet by mouth 2 times daily (with meals)., Disp: , Rfl: ; acetaminophen (TYLENOL ARTHRITIS PAIN) 650 mg CR tablet, Take 650 mg by mouth every 8 hours as needed. Do not exceed 6 tabs in 24 hours , Disp: , Rfl: ; multivitamin (THERAGRAN) tablet, Take 1 tablet by mouth daily., Disp: , Rfl: Diet Hx:Sometimes I have breakfast and sometimes I don't. Lunch is 2 cheeseburgers with fries and fruits and vegetables. Dinner is usually Grilled cheese or anything you can stick in the oven to cook. Last night had 3/4 package of frozen pasta which typically feeds 4, and a turkey burger. Will have something after dinner like ice cream (2 scoops). Drinks mostly (1/2 gallon/day) whole milk and any type of juice. At work has regular soda-at least 90oz/day plus a slushy soda. At work will have 2 slices of cheese pizza, chips, dessert, and drinks as above. Exercise:Just got a gym membership and plans to start working out 4x/day. Social: Works at [employer]- often snacks on stuff there. A: This is a 37 year- old morbidly obese female who comes today for weight loss nutrition therapy. Diet hx per above shows excess caloric intake via energy dense foods and beverages, lack of exercise, and lack of motivation for behavior change up until this point. Evita has recently started a gym membership, and plans to use that 3-4x/wk. She is here for mgt of symptoms of GERD and abd gas/bloating as well as weight loss. We focused the majority of today's visit on assessing the calories she is drinking from beverages and how to decrease. I also explained that the amount sugar, carbonation, and fat she consumes in a dayare likely contributing to GERD and bloating. Changing drinking alone will help, and will work on food choices next visit. Drink Intake daily is as follows: Soda (10cans/day)=1517 calories Milk (1/2 gallon whole milk)= 1175calories Slushi (64oz) = 500 calories Juice (12oz)=220 calories Total daily calories from drinks= 3412 kcal/day Goals for the next month: 1 glass of skim milk at dinner 1 nati juice at breakfast Water through out work No slushie, no soda Weigh self weekly aiming for 1-5lbs/wk 340lbs at next visit Iceburg salad with fat free dressing (she has been having diarrhea with salad, so trying a very simple salad and see how she does with this). Follow up with me in 1 month This visit consisted of 60 minutes of direct nutrition education and counseling. documented in this encounter Plan of Treatment Not on filedocumented as of this encounter Visit Diagnoses Diagnosis Morbid obesity with BMI of 50.0-59.9, ad ult - Primary Morbid obesity GERD (gastroesophageal reflux disease) Esophageal reflux documented in this encounter Care Teams Rn Office Relationship Specialty Start Date End Date Denise Darnell MD PCP - General 11/18/11 05/08/15 [facility] [place] [address] documented as of this encounter
--- OUTSIDE RECORDS SUMMARY | 2021-12-17 15:08 | XMS_ITS | Encounter Summary ---
:1975 Author Organization [place] [address] Care Team Providers Name Role Phone Denise Darnell MD Primary Care Provider Reason for Visit Reason Onset Date Comments Prior Authorization 09/27/2012 Encounter Details Date Type Department Care Team Description 09/27/2012 Telephone Internal Medicine [place] [facility] Roxanne Parra, Prior Authorization [facility] [place] [phone] Social History Tobacco Use Types Packs/Day Years Used Date Former Smoker Cigarettes 2 10 Quit: 09/05/19 11 Smokeless Tobacco: Never Used Comments: quits during Alcohol Use Standard Drinks/Week Comments No 0 (1 standard drink = 0.6 oz pure alcoho l) n/a Sex Assigned at Date Recorded Female 05/09/2020 7:27 PM EST documented as of this encounter Miscellaneous Notes Telephone Encounter - Roxanne Parra CMA - 09/27/2012 3:12 PM EDT JESUS ALBERTO for imitrex faxed to ins. documented in this encounter Plan of Treatment Not on filedocumented as of this encounter Visit Diagnoses Not on filedocumented in this encounter Care Teams Concrete Bucket Hooker Relationship Specialty Start Date End Date Denise Darnell MD PCP - General 11/18/11 05/08/[address] [facility] [address] [facility] [place] [address] (work) documented as of this encounter
--- OUTSIDE RECORDS SUMMARY | 2021-12-17 15:08 | XMS_ITS | Encounter Summary ---
:1975 Author Organization [facility] [place] [address] Care Team Providers Name Role Phone Denise Darnell MD Primary Care Provider Reason for Visit Reason Onset Date Comments Medication Refill 04/10/2012 Encounter Details Date Type Department Care Team Description 04/10/2012 Refill Internal Medicine at [facility]meen Posey, [place]; [facility] [place] (gastroesophageal reflux disease) [facility] [address] [facility] [place] [address] MEDICINE [phone] [place], [place] [address] (Wo rk) Social History Tobacco [...] of this encounter Visit Diagnoses Diagnosis Obesity Obesity, unspecified GERD (gastroesophageal reflux disease) Esophageal reflux documented in this encounter Care Teams Insurance Follow Up Specialist Relationship Specialty Start Date End Date Denise Darnell MD PCP - General 11/18/11 05/08/[address] [facility] [address] [facility] [place] [address] documented as of this encounter
--- OUTSIDE RECORDS SUMMARY | 2021-12-17 15:08 | XMS_ITS | Encounter Summary ---
:1975 [address] [facility] [place] [address] Care Team Providers Name Role Phone Denise Darnell MD Primary Care Provider Reason for Referral Physical Therapy (Routine) - Closed Specialty Diagnoses / Procedures Referred By Contact Refer red To Contact Physical Therapy Diagnoses OA (osteoarthritis) of knee Jonel Caro PA [facility] Pt Rehab [facility] D R [facility] [place] [address] [place] [address] Phone: Fax: Referral ID Status Reason Start Date Expiration Date Visits V isits Requested Authorized [id number] Closed Evaluate and 08/25/2011 02/21/2012 1 1 Treat Reason for Visit Reason Comments Right Knee Pain Encounter Details Date Type Department Care Team Description 08/25/2011 Office Visit Orthopaedics at [facility] Tim Gonzales, OA (osteoarthritis) [facility] of knee (Primary Dx) [place] [address] CENTER [phone] ORTHOPAEDIC SURGERY [place], [place] [address] Social History Tobacco Use Types [...] Sign Reading Time Taken Comments Blood Pressure 142/80 08/25/2011 3:15 PM EDT Pulse 90 08/25/2011 3:15 PM EDT Temperature - - Respiratory Rate - - Oxygen Saturation - - Inhaled Oxygen Concentration - - Weight 148 kg (326 lb 3.2 oz) 08/25/2011 3:15 PM EDT Height 175.3 cm (5' 9) 08/25/2011 3:15 PM EDT Body Mass Index 48.17 08/25/2011 3:15 PM EDT documented in this encounter Progress Notes Jonel Caro PA - 08/25/2011 3:48 PM EDT HPI: 36 yo female presents for f/u of her arthritic right knee. The symptoms have been stable. She has been using a combination NSAIDs and tylenol. She is icing daily. 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 Her health has been stable aside from the knee. She has had no injuries. Her health has been stable aside from the knee. Hip Questionnaire Responses: myD-H Hip & Knee 08/25/2011 UCLA Activity Score 4 (Average Activity) MODEMS Expectation - MODEMS Satisfaction 66.66 VR12 - Physical Component Summary 16.28 VR12 - Mental Component Summary 61.27 Arthritis Ladder Footwear/orthotics... Joint Infections No Bleeding Issues No Heart Issues No EQ5D - Mobility 2 (I have some problems in walking about ) EQ5D - Self Care 1 (I have no problems with self-care) EQ5D - Usual Activities 3 (I am unable to perform my usual activities) EQ5D - Pain/Discomfort 2 (I have moderate pain or discomfort ) EQ5D - Anxiety/Depression 1 (I am not anxious or depressed) EQ5D - Overall Health 2 (Much the same) Treatment Option Non-surgical treatment Patient Active Problem List Diagnoses Code ??? Depression 311L ??? GERD (gastroesophageal reflux disease) 530.81S ??? Hyperlipidemia 272.4S ??? Hypothyroidism 244.9AP ??? Obesity 278.00M ??? state, incidental V22.2 ??? Diabetes mellitus type 2 in obese 250.00EP ??? AMA (advanced maternal age) multigravida 35+ 659.63F ??? Hypertension 401.9AJ ??? Shoulder impingement syndrome 726.2AK ??? Type 2 diabetes mellitus 250.00CA ??? Myopia 367.1 ??? Astigmatism 367.20A ??? Arthritis of knee, right 716.96R ASsessment: Right knee OA Plan: We again discussed her symptoms and relevant anatomy. We reviewed weight loss, activity modification and the use of stick or trekking pole. The appropriate use of NSAIDs and tylenol was reviewed.Indications for further intervention were discussed. We'll plan to see her again as needed for further invasive treatments. documented in this encounter Plan of Treatment Scheduled Referrals Name Type Priority Associated Diagnoses Order S chedule REFERRAL TO Outpatient Referral Routine OA (osteoarthritis) O rdered: PHYSICAL THERAPY of knee 08/25/2011 documented as of this encounter Visit Diagnoses Diagnosis OA (osteoarthritis) of knee - Primary Osteoarthrosis, unspecified whether gene ralized or localized, lower leg documented in this encounter Care Teams Chief Quality Officer Relationship Specialty Start Date End Date Denise Darnell MD PCP - General 01/27/10 08/29/11 [facility] [place] [address] documented as of this encounter
--- OUTSIDE RECORDS SUMMARY | 2021-12-17 15:08 | XMS_ITS | Encounter Summary ---
:1975 Author Organization [facility] [place] [address] Care Team Providers Name Role Phone Denise Darnell MD Primary Care Provider Reason for Visit Reason Onset Date Comments Medication Refill 04/08/2012 Encounter Details Date Type Department Care Team Description 04/08/2012 Refill Internal Medicine at [facility] Shell Carson MD [facility] P[address] [facility] [place] [address] GENERAL INTERNAL MEDICINE [phone] [place], [place] [address] (Wo rk) Social History Tobacco [...] on filedocumented in this encounter Care Teams Stitchdown Thread Laster Relationship Specialty Start Date End Date Denise Darnell MD PCP - General 11/18/11 05/08/15 [facility] [place] [address] documented as of this encounter
--- OUTSIDE RECORDS SUMMARY | 2021-12-17 15:08 | XMS_ITS | Encounter Summary ---
:1975 Author Organization [facility] [place] [address] Care Team Providers Name Role Phone Denise Darnell MD Primary Care Provider Encounter Details Date Type Department Care Team Description 06/13/2012 Telephone Internal Medicine [place] [facility] [place] [address] Social History Tobacco Use Types Packs/Day Years Used Date Former Smoker Cigarettes 2 10 Quit: 09/05/19 11 Smokeless Tobacco: Never Used Comments: quits during Alcohol Use Standard Drinks/Week Comments No 0 (1 standard drink = 0.6 oz pure alcoho l) n/a Sex Assigned at Date Recorded Female 05/09/2020 7:27 PM EST documented as of this encounter Miscellaneous Notes Telephone Encounter - Dyan Jones RN - 06/13/2012 9:16 AM EDT Merle García I ask you for a favor. This patient, Evita [place], is hypothyroid and has an elevated TSH level as of last week. This indicated that she needs to take more levothyroxine. I have tried to reach her multiple times and was not able to do so. I wanted to request that you might try to call her and let her know that her levothyroxine dose needs to be increased. According to the chart, she is on a total of 150 mcg daily (125 mcg tab and 25 mcg tab). She told meduring a recent visit that she only takes the 125 mcg tab. Please ask her how much she takes, and advise her to increase the dose by 25 mcg. Therefore, if she currently take 125 mcg, she should start taking 150 mcg. If she takes 150 mcg, she should take 175 mcg. I renewed both prescriptions for levothyroxine 125 mcg tab and 25 mcg tab and forwarded them to her pharmacy ([facility] in [place] I believe). She should also come in 6 weeks from today for another lab draw to check TSH. Thank you so much! Per Dr Posey Per nurse Spoke with Evita, she has been taking synthroid 125 mcg daily, instructed to add 25 mcg Daily to make total dose 150 mcg per day. Instructed to have lab checked 6 weeks after increase. documented in this encounter Plan of Treatment Not on filedocumented as of this encounter Visit Diagnoses Not on filedocumented in this encounter Care Teams Underwear Trimmer Relationship Specialty Start Date End Date Denise Darnell MD PCP - General 11/18/11 05/08/15 [facility] [address] [place] [address] documented as of this encounter
--- OUTSIDE RECORDS SUMMARY | 2021-12-17 15:08 | XMS_ITS | Encounter Summary ---
:1975 Author Organization [facility] [place] [address] Care Team Providers Name Role Phone Denise Darnell MD Primary Care Provider Reason for Visit Reason Comments Foot Injury left Encounter Details Date Type Department Care Team Description 07/28/2011 Office Visit Internal Medicine at Jacy Dumont MD Left ankle sprain [facility] (Primary Dx) [facility] [address] GENERAL INTERNAL [place], [place] MEDICINE [id number] [place] [address] [phone] (Wo rk) Social History Tobacco Use Types [...] Sign Reading Time Taken Comments Blood Pressure 140/81 07/28/2011 10:31 AM EDT Pulse 85 07/28/2011 10:31 AM EDT Temperature 36.4 ??C (97.5 ??F) 07/28/2011 10:31 AM EDT Respiratory Rate 18 07/28/2011 10:31 AM EDT Oxygen Saturation - - Inhaled Oxygen Concentration - - Weight 144.2 kg (318 lb) 07/28/2011 10:31 AM EDT Height - - Body Mass Index 46.96 07/16/2011 2:57 PM EDT documented in this encounter Patient Instructions Patient InstructionsJosiah Dumont MD - 07/28/2011 10:48 AM EDT Images from the original note were not included. Increase naproxen (Aleve) to 500 mg twice daily (two pills twice daily). Take Tylenol, 650 mg three times daily for pain. At work, you should take a 10 minute break from standing every hour. Be sure to elevate the leg whenyou are not standing to help with the swelling. You can ice the ankle when you are at home - 20 minutes on, 20 minutes off.[facility] Ankle Sprain: After Your Visit Your Care Instructions An ankle sprain can happen when you twist your ankle. The ligaments that support the ankle can get stretched and torn. Often the ankle is swollen and painful. Ankle sprains may take from several weeks to several months to heal. Usually, the more pain and swelling you have, the more severe your ankle sprain is and the longer it will take to heal. You can healfaster and regain strength in your ankle with good home treatment. It is very important to give your ankle time to heal completely, so that you do not easily hurt yourankle again. Follow-up care is a moran part of your treatment and safety. Be sure to make and go to all appointments, and call your doctor if you are having problems. It???s also a good idea to know your test resultsand keep a list of the medicines you take. How can you care for yourself at home? ?? Prop up your foot on pillows as much as possible for the next 3 days. Try to keep your ankle above the level of your heart. This will help reduce the swelling. ?? Follow your doctor???s directions for wearing a splint or elastic bandage. Wrapping the ankle mayhelp reduce or prevent swelling. ?? Your doctor may give you a splint, a brace, an air stirrup, or another form of ankle support to protect your ankle until it is healed. Wear it as directed while your ankle is healing. Do not remove it unless your doctor tells you to. After your ankle has healed, ask your doctor whether you should wear the brace when you exercise. ?? Put ice or cold packs on your injured ankle for 10 to 20 minutes at a time. Try to do this every 1 to 2 hours for the next 3 days (when you are awake) or until the swelling goes down. Put a thin cloth between the ice and your skin. ?? You may need to use crutches until you can walk without pain. If you do use crutches, try to bearsome weight on your injured ankle if you can do so without pain. This helps the ankle heal. ?? Take pain medicines exactly as directed. ?? If the doctor gave you a prescription medicine for pain, take it as prescribed. ?? If you are not taking a prescription pain medicine, ask your doctor if you can take an qmnt-zot-rxmtkgo medicine. ?? If you have been given ankle exercises to do at home, do them exactly as instructed. These can promote healing and help prevent lasting weakness. When should you call for help? Call your doctor now or seek immediate medical care if: ?? Your pain is getting worse. ?? Your swelling is getting worse. ?? Your splint feels too tight or you are unable to loosen it. Watch closely for changes in your health, and be sure to contact your doctor if: 1. You are not getting better after 1 week. Where can you learn more? Visit our health information library at [email or web address]. You can also view health information on [employer], your personal patient account. Log in or sign up today. Enter S771 in the search box to learn more about Ankle Sprain: After Your Visit. ?? [id number] [employer]. Care instructions adapted under license by [facility]. This care instruction is for use with your licensed healthcare professional. If you have questionsabout a medical condition or this instruction, always ask your healthcare professional. [employer] disclaims any warranty or liability for your use of this information. Content Version: 9.1.836640; Last Revised: July [facility], 2010[facility]: Exercises Your Care Instructions Here are some examples of typical rehabilitation exercises for your condition. Start each exercise slowly. Ease off the exercise if you start to have pain. Your doctor or physical therapist will tell you when you can start these exercises and which ones will work best for you. How to do the exercises Alphabet exercise 2. Trace the alphabet with your toe. This helps your ankle move in all directions. Ayie-ql-ujsf knee swing exercise 1. Sit in a chair with your foot flat on the floor. 2. Slowly move your knee from side to side while keeping your foot pressed flat. Towel curl 1. While sitting, place your foot on a towel on the floor, and scrunch the towel toward you with your toes. 2. Then use your toes to push the towel away from you. 3. Make this exercise more challenging by placing a weighted object, such as a soup can, on the other end of the towel. Towel stretch 1. Sit with your legs extended and knees straight. 2. Place an elastic band or towel around your foot just under the toes. A towel will give you a moreeffective stretch. 3. Hold each end of the towel or band in each hand, with your hands above your knees. 4. Pull back with the towel or band so that your foot stretches toward you. 5. Hold the position for at least 15 to 30 seconds. 6. Repeat 2 to 4 times a session, up to 5 sessions a day. Ankle eversion exercise 1. Start by sitting with your foot flat on the floor and pushing it outward against an immovable object such as the wall or heavy furniture. 2. After you feel comfortable with this, try using rubber tubing looped around the outside of your feet for resistance. Rubber tubing, also called surgical tubing, is like a big rubber band. When held firmly on one end, it offers resistance as you stretch the other side. Isometric opposition exercises 1. While sitting, put your feet together flat on the floor. 2. Press your injured foot inward against your other foot. 3. Then place the heel of your other foot on top of the injured one. Push down with the top heel while trying to push up with your injured foot. Follow-up care is a moran part of your treatment and safety. Be sure to make and go to all appointments, and call your doctor if you are having problems. It's also a good idea to know your test results and keep a list of the medicines you take. Where can you learn more? Visit our health information library at [email or web address]. You can also view health information on [employer], your personal patient account. Log in or sign up today. Enter X002 in the search box to learn more about Ankle Sprain: Exercises. ?? [id number] [employer]. Care instructions adapted under license by [facility]. This care instruction is for use with your licensed healthcare professional. If you have questionsabout a medical condition or this instruction, always ask your healthcare professional. [employer] disclaims any warranty or liability for your use of this information. Content Version: [id number]; Last Revised: January 24, 2009 documented in this encounter Progress Notes Josiah Dumont MD - 07/28/2011 10:59 AM EDT General Internal Medicine Clinic - Same day visit Chief complaint: ankle sprain History of present illness: This is a 36 y.o. female with obesity and R knee osteoarthritis. Two days ago she stepped in a pothole with her left foot and rolled her left ankle. She did not feel a pop, but she immediately felt pain; she was able to bear weight on the ankle but it has been painful ever since. 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 She has not taken any additional pain medications for this besides her usual naproxen 250 mg BID. Pain gets as high as 8/10. Past medical/surgical history/Problem List: Patient Active Problem List Diagnoses ??? Diabetes mellitus type 2 in obese Metformin stopped, now on insulin 07/10/10 Post-: insulin stopped and restarted on pre-pergnancy metformin 500mg QD ->Will be monitoring sugars fasting /1hr post-prandial. Given referral to Endocrinology. ??? state, incidental Dx replacement utility run on deactivated IMO Dx [id number] ??? Hypothyroidism 07/10/10: Restarted on pre- dose synthroid 125mcg ??? Obesity ??? AMA (advanced maternal age) multigravida 35+ ??? Depression ??? GERD (gastroesophageal reflux disease) ??? Hyperlipidemia ??? Arthritis of knee, right ??? Type 2 diabetes mellitus ??? Myopia ??? Astigmatism ??? Shoulder impingement syndrome ??? Hypertension Meds stopped in 2009 Medications: Current outpatient prescriptions ordered prior to encounter Medication Sig Dispense Refill ??? levothyroxine (SYNTHROID) 125 mcg tablet Take 1 tablet by mouth daily. 30 tablet 5 ??? Pantoprazole (PROTONIX) 40 mg SuDR Take 40 mg by mouth daily. 90 each 3 ??? naproxen (NAPROSYN) 250 mg tablet Take 1 tablet by mouth 2 times daily (with meals). ??? acetaminophen (TYLENOL ARTHRITIS PAIN) 650 mg CR tablet Take 650 mg by mouth every 8 hours as needed. Do not exceed 6 tabs in 24 hours ??? multivitamin (THERAGRAN) tablet Take 1 tablet by mouth daily. Allergies: Allergies Allergen Reactions ??? Latex Anaphylaxis ??? Sulfa (Sulfonamide Antibiotics) Anaphylaxis and Hives Social history: History Social History ??? Marital Status: Single Spouse Name: N/A Number of Children: N/A ??? Years of Education: N/A Occupational History ??? 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 Smoking status: Former Smoker -- 2.0 packs/day for 10 years Types: Cigarettes Quit date: 09/04/2010 ??? Smokeless tobacco: Never Used Comment: quits during ??? Alcohol Use: No n/a ??? Drug Use: No ??? Sexually Active: Yes -- Male partner(s) Other Topics Concern ??? Stress Concern Yes Pt.does not have custody of children Social History Narrative Current FOB is father [...] involvement with this . Has seen the high school social science teacher. Referred to [facility] but has not contected.Patient and FOB were living together at beginning of but are not living together now. Review of systems: as per HPI Physical Exam: Vitals: Blood pressure 140/81, pulse 85, temperature 36.4 ??C (97.5 ??F), temperature source Oral, resp. rate 18, weight 144.244 kg (318 lb), last menstrual period 07/20/2011, not currently . Constitutional: well-appearing, awake and alert, NAD MSK: mild left foot edema. FROM of left ankle in inversion/eversion. No tenderness over lateral malleolus. No joint laxity or other deformity noted. CV: PT pulses 2+ bilaterally Neuro: sensation to light touch intact Assessment/Plan: This is a 36 y.o. female with a left ankle sprain; no need for films based on [place] rules. - rest (should take 10 minute breaks every hour while at work) - ice, 20 mins on and 20 mins off - can increase naproxen to 500 mg BID for the next few days; add Tylenol 650 mg TID - JOSE wrap applied - pt given instructions for gentle ROM exercises Josiah Dumont MD [phone] Melissa Zepeda MD - 07/28/2011 10:47 AM EDT The case was discussed at the time of the visit or immediately after the visit. The assessment and plan were formulated in discussion with me and I agree with them as documented. I have reviewed the history, physical exam, assessment and plan with the resident, Dr. Dumont. Major issues discussed today: 36 yo f here for evaluation of left ankle injury. -Inversion injury x 2 days. Able to bear weight immediately after injury and since then. Taking naproxen BID (but at prior dose for knee OA and not getting much relief.) Likely ankle sprain. Plan: -No indication for plain films. -JOSE wrap today. -Increase naproxen over the next few days. -Work note written. -RTC prn. documented in this encounter Plan of Treatment Not on filedocumented as of this encounter Visit Diagnoses Diagnosis Left ankle sprain - Primary Sprain of ankle, unspecified site documented in this encounter Care Teams Plant Etiologist Relationship Specialty Start Date End Date Denise Darnell MD PCP - General 01/27/10 08/29/11 [facility] [place] [address] documented as of this encounter
--- OUTSIDE RECORDS SUMMARY | 2021-12-17 15:08 | XMS_ITS | Encounter Summary ---
:1975 [place] [address] Care Team Providers Name Role Phone Denise Darnell MD Primary Care Provider Reason for Visit Reason Comments Leg Pain left clicks when going up an d down stairs, right leg hurts as well, and chronic health issues Encounter Details Date Type Department Care Team Description 01/16/2013 Office Visit Internal Medicine at Freya Vega MD Irregular periods (Primary Dx); [facility] Amenorrhea; [facility] DR Knee pain, right Drive GENERAL INTERNAL [place], [place] MED[place]INE [address] [place] [address] [phone] (Wo rk) Social History Tobacco Use Types [...] Sign Reading Time Taken Comments Blood Pressure 147/82 01/16/2013 1:34 PM EST Pulse 79 01/16/2013 1:34 PM EST Temperature 36.8 ??C (98.2 ??F) 01/16/2013 1:34 PM EST Respiratory Rate 20 01/16/2013 1:34 PM EST Oxygen Saturation 98% 01/16/2013 1:34 PM room air EST Inhaled Oxygen Concentration - - Weight 153.5 kg (338 lb 6.4 01/16/2013 1:34 PM without shoes oz) EST Height 175.3 cm (5' 9) 01/16/2013 1:34 PM EST Body Mass Index 49.97 01/16/2013 1:34 PM EST documented in this encounter Progress Notes Amrik Spence MD - 01/16/2013 2:19 PM EST The case was discussed at the time of the visit or immediately after the visit. The assessment and plan were formulated in discussion with me and I agree with them as documented. I have reviewed the history, physical exam, assessment and plan with the resident. Major issues discussed today: obesity, hypothyroid, right knee pain: aleve does not help, work with walking ,elevating helps, interested in trial of brace Irregular peiods: oct 2011 onwards. no changes in skin. Hypothyroid: on synthroid Lab Results Component Value Date TSH 7.77* 06/07/2012 BP 147/82 Pulse 79 Temp 36.8 ??C (98.2 ??F) (Oral) Resp 20 Ht 175.3 cm (5' 9) Wt 153.497 kg (338 lb 6.4 oz) BMI 49.97 kg/m2 SpO2 98% LMP 11/16/2012 Exam per resident. Plan: Irregular periods: TSH check, urine . Right knee pain: brace advised Freya Vega MD - 01/16/2013 1:45 PM EST GIM Acute Visit Note HPI: Evita is a 37F w/ h/o obesity, hypothyroidism, and migraines, here today to discuss following issues: # R knee pain: H/o long-standing R knee pain, likely 2/2 osteoarthritis. Has tried PT in the past without much benefit. Takes aleve PRN. Exacerbating factors include walking and activity, and pain is alleviated with elevation and ice. Is interested in trying a knee brace to help with the pain and to help stabilize the pain. # Irregular periods: Last period was in Nov 2012, prior to that was having regular periods once monthly, which would last 10-14 days. Is not sexually active and does not think there is a chance of . Denies any skin or hair changes, no hirsutism or drainage from breasts. Unclear of weight changes as she says she fluctuates. Does have h/o gestational diabetes in 2010 that resolved on its own after the of her son. Denies pelvic pain, dyspareunia, or any vaginal discharge. Has h/o hypothyroidism, last TSH checked 06/2012, was 7.77 at that time. Currently taking 150mcg levothyroxine daily. No family h/o premature ovarian failure. ROS: Constitutional: -fevers, -chills, -nightsweats, -fatigue/malaise, -weight changes HEENT: -sore throat, -runny nose, -changes in vision, -dizziness CVS: -chest pain, -palpitations, -TOVAR, -lightheadedness Resp: -SOB, -cough, -wheeze GI: -abdominal pain, -changes in bowel habits, -blood in stool, -black tarry stools, -nausea/emesis : -dysuria, -hematuria, -changes in frequency, -changes in stream, -incontinence MSK: -myalgias, -arthralgias, -swelling Skin: -rashes, -pruritis Neuro: -headaches, -focal weakness, -tremors, -seizures Patient Active Problem List Diagnosis Code ??? [...] blood pressure 796.2 ??? Chronic urticaria 708.8 Medications: Reviewed, as listed in eDH Physical Exam: Filed Vitals: 01/16/13 1334 BP: 147/82 Pulse: 79 Temp: 36.8 ??C (98.2 ??F) Resp: 20 Gen: Pleasant, obese, in NAD HEENT: PERRL, crowded oropharynx w/o any exudate, no cervical LAD, no thyromegaly CVS: RRR, nml S1 S2, soft systolic murmur grade 2/6 heard best in LUSB, no r/g appreciated Resp: CTAB Abdo: Soft, obese, NT, no hepato or splenomegaly, no rebound or guarding, +BS. No CVA tenderness Extr: No LE edema MSK: No obvious abnormalities of the knees. No swelling or erythema of the R knee, has full ROM. Gyne: External genitalia w/in normal limits. Speculum exam showed normal cervix, no lesions or discharge. Bimanual exam was difficult given body habitus but no adnexal masses or posterior cervical tenderness elicited A/P: Evita is a 37F w/ h/o obesity, hypothyroidism, and migraines, here today to address R knee pain andirregular periods. Interested in trying knee brace to see if it will help with her knee pain, which is likely 2/2 OA and related to her weight. Irregular periods x 2 months now, gyne exam was unremarkable. Reasonable to check urine test and re-checking her TSH since she was hypothyroid at last check in 06/2012. Should she continue to not have periods for 3 cycles or 6 months, would continue with further secondary amenorrhea workup with prolactin, LH/FSH. Rest of plan outlined below: - [facility] knee brace - urine test - TSH - will f/u results once available - if irregular periods persist, consider obtaining a prolactin level - RTC with regular PCP in 3 months time to f/u on weight and other chronic issues documented in this encounter Plan of Treatment Not on filedocumented as of this encounter Procedures Procedure Name Priority Date/Time Associated Comments Diagnosis PROLACTIN Routine 01/16/2013 4:41 PM Amenorrhea Results f or this EST procedure are i n the results section. TSH Routine 01/16/2013 4:41 PM Amenorrhea Results f or this EST procedure are i n the results section. URINE, Routine 01/16/2013 4:40 PM Amenorrhea Resul ts for this QUALITATIVE EST procedure are i n ([facility]) the res ults section. documented in this encounter Results Prolactin (01/16/2013 4:41 PM EST) athologist Signature Prolactin 8.4 4.8 - 23.3 CERNER ng/mL MILLENNIUM Specimen Anatomical Collection Method Collection Time Receive d Time (Source) Location / / Volume Laterality Blood specimen 01/16/2013 4:41 PM 013 4:48 (specimen) EST PM EST Resulting Agency Comment Spec In Lab Denise Darnell MD CHEMISTRY ORDERABLES Performing Organization Address City/[facility]/[place] [address] [facility] MILLENNI[facility] (ABNORMAL) TSH (01/16/2013 4:41 PM EST) athologist Signature TSH 13.36 (H) 0.27 - CERNER 4.20 MILLENNIUM mcIU/mL Specimen Anatomical Collection Method Collection Time Receive d Time (Source) Location / / Volume Laterality Blood specimen 01/16/2013 4:41 PM 013 4:48 (specimen) EST PM EST Resulting Agency Comment Spec In Lab Denise Darnell MD CHEMISTRY ORDERABLES Performing Organization Address City/[facility]/[place] [address] CERNER MILLENNIUM urine, qualitative (01/16/2013 4:40 PM EST) athologist Signature SG Urine 1.028 1.002 - CERNER 1.030 MILLENNIUM HCG Qual Negative CERNER MILLENNIUM Comment: If Specific [place] is less than 1.010, a negative result is obtained, and is still suspect ed, a repeat on a first morning specimen is recommended. Specimen Anatomical Collection Method Collection Time Receive d Time (Source) Location / / Volume Laterality Urine specimen 01/16/2013 4:40 PM 013 4:48 (specimen) EST PM EST Resulting Agency Comment Spec In Lab Denise Darnell MD URINE ORDERABLES Performing Organization Address City/State/[place] [address] [facility] documented in this encounter Visit Diagnoses Diagnosis Irregular periods - Primary Irregular menstrual cycle Amenorrhea Absence of menstruation Knee pain, right Pain in joint, lower leg documented in this encounter Care Teams Business Development Recruiter Relationship Specialty Start Date End Date Denise Darnell MD PCP - General 11/18/11 05/08/15 [facility] [place] [address] documented as of this encounter
--- OUTSIDE RECORDS SUMMARY | 2021-12-17 15:08 | XMS_ITS | Encounter Summary ---
:1975 Author Organization [facility] [place] [address] Care Team Providers Name Role Phone Denise Darnell MD Primary Care Provider Encounter Details Date Type Department Care Team Description 06/12/2012 Orders Only Internal Medicine at Severiano Posey (Primary Dx); [facility] MD Yasmeen Hypothyroid [facility] [address] [place] [address] MEDICINE [phone] [place], [place] [address] (Wo rk) Social History Tobacco Use Types Packs/Day Years Used Date Former Smoker Cigarettes 2 10 Quit: 09/05/19 11 Smokeless Tobacco: Never Used Comments: quits during Alcohol Use Standard Drinks/Week Comments No 0 (1 standard drink = 0.6 oz pure alcoho l) n/a Sex Assigned at Date Recorded Female 05/09/2020 7:27 PM EST documented as of this encounter Progress Notes Yasmeen Posey MD - 06/12/2012 8:22 PM EDT The patient's recent TSH is elevated: 10/04/2011 10:15 06/07/2012 10:20 TSH 3.93 7.77 (H) She has known hypothyroidism and is supposed to be on levothyroxine 150 mcg daily. During last visit she indicated that she may be taking 125 mcg daily. I attempted to reach the patient by telephone multiple times to inform her of the results. I sent a request to the [place] Team nurse to contact the patient, let her know of the results, and recommend her to increase her daily dose of levothyroxine, ie if taking 125 mcg to increase to 150 mcg(as prescribed previously). She is to come for a TSH re-check in 6 weeks. Levothyroxine prescriptions for 125 mcg tab daily and 25 mcg tab daily were renewed and sent to her pharmacy. Yasmeen Posey MD, PhD Internal Medicine PGY-1 documented in this encounter Plan of Treatment Not on filedocumented as of this encounter Visit Diagnoses Diagnosis Obesity - Primary Obesity, unspecified Hypothyroid Unspecified hypothyroidism documented in this encounter Care Teams Microbiology Manager Relationship Specialty Start Date End Date Denise Darnell MD PCP - General 11/18/11 05/08/15 [facility] [place] [address] documented as of this encounter
--- OUTSIDE RECORDS SUMMARY | 2021-12-17 15:08 | XMS_ITS | Encounter Summary ---
:1975 Author Organization [facility] [place] [address] Care Team Providers Name Role Phone Denise Darnell MD Primary Care Provider Reason for Visit Reason Comments Oral Swelling ? unsure to why Encounter Details Date Type Department Care Team Description 07/27/2012 [facility] (Primary Dx[facility] Carpal tunnel syndrome [facility] [address] Pop GENERAL INTERNAL [place], [place] MED[place]INE [id number] [place] [address] [phone] Social History Tobacco Use Types Packs/Day Years [...] Sign Reading Time Taken Comments Blood Pressure 138/81 07/27/2012 10:41 AM EDT Pulse 64 07/27/2012 10:41 AM EDT Temperature 36.7 ??C (98.1 ??F) 07/27/2012 10:41 AM EDT Respiratory Rate - - Oxygen Saturation 98% 07/27/2012 10:41 AM EDT Inhaled Oxygen Concentration - - Weight 156 kg (344 lb) 07/27/2012 10:41 AM EDT Height 175.3 cm (5' 9) 07/27/2012 10:41 AM EDT Body Mass Index 50.8 07/27/2012 10:41 AM EDT documented in this encounter Patient Instructions Patient InstructionsLoni Cao - 07/27/2012 11:14 AM EDT -Follow up with allergy appointment in September -Start zyrtec as listed in meds, could add Pepcid OTC if needed. -Add benadryl over the counter if needed. -Splint with work and at night documented in this encounter Progress Notes Shavon Prado MD - 07/27/2012 11:07 AM EDT The case was discussed at the time of the visit or immediately after the visit. The assessment and plan were formulated in discussion with me and I agree with them as documented. I have reviewed the history, physical exam, assessment and plan with the resident. Major issues discussed today: Urticaria; angioedema (lip swelling) related to lisinopril initially, has stopped drug. Today had recurrent lip swelling which has resolved. No respiratory compromise. Carpal tunnel syndrome Plan: Take Zyrtec daily, could add H2 des if needed, and can treat acute episodes with benadryl; allergy referral pending Trial of wrist splints Loni Cao - 07/27/2012 10:46 AM EDT Acute Care Visit: R side swollen lip 2 weeks ago, lasted a few hours, today L side swollen, lasted 1 hour. Seen 07/18 for similar issue. Recent changes: Lisinopril taken for about 2 weeks, then had lip swelling (about two weeks ago). Stopped taking med immediately after that. No issues again until today. Has had wheezing in the past with exposure to soap in bathtub but no recent wheezing, throat tightening or trouble breathing. Does have a history of seasonal allergies. Does have allergy appt in September. Has hx of hives and itching. Has Rx for creams and zyrtec but has not used yet. Dry cough, itchy ears. Also has numb hand with tingling on R hand at thumb and first two fingers constantly, also now on L side, happens when driving on L side. 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 Patient Active Problem List Diagnoses Code ??? [...] 367.1 ??? HALEY (obstructive sleep apnea) 327.23 Current Outpatient Prescriptions on File Prior to Visit Medication Sig Dispense Refill ??? cetirizine (ZYRTEC) 10 mg tablet Take 1 tablet by mouth 2 times daily as needed (Itching). 60 tablet 3 ??? triamcinolone (KENALOG) 0.025 % cream Apply [...] tablet Take 1 tablet by mouth daily. BP 138/81 Pulse 64 Temp(Src) 36.7 ??C (98.1 ??F) (Oral) Ht 175.3 cm (5' 9) Wt 156.037 kg (344 lb) BMI 50.80 kg/m2 SpO2 98% LMP 07/08/2012 Physical Exam: Gen: Awake, alert, oriented, no , obese white female, pleasant and conversant. HEENT: No head trauma noted, no scleral icterus, TM's normal +cobblestoning of posterior OP with some thick mucus. No lip swelling notes at this time. Extremities: Warm, posterior tibial, dorsalis pedis pulses 2+ bilaterally. +Diffuse mild erythematous hives on arms and legs. +pain/tingling into fingers b/l with passive flexion of wrists, negative Tinel's sign. Neuro: Normal speech, moving all extremities equally. Lab Results Component Value Date WBC 12.9* 07/11/2010 HGB 10.5* 07/11/2010 HCT 32.4* 07/11/2010 PLATELET 169 07/11/2010 CHLPL 184 06/07/2012 TRIG 199* 06/07/2012 HDL 36* 06/07/2012 LDLCHOL 108* 06/07/2012 LDLDIRECT 127* 07/16/2011 ALT 34* 06/07/2012 AST 44* 06/07/2012 NA 142 06/07/2012 K 4.1 06/07/2012 CL 105 06/07/2012 CREATININE 0.80 06/07/2012 BUN 13 06/07/2012 CO2 28 06/07/2012 TSH 7.77* 06/07/2012 GLUCFASTING 108* 06/07/2012 HA1C 6.6* 06/07/2012 MICROALBUR 15.4 03/24/2011 A/P: 37 y/o F with hx 1 year hives, itchy, now with brief episode lip swelling after initiation of lisinopril. Has allergic diathesis from all appearances and will likely need chronic management of these issues. 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 Allergy: -F/U with allergy appointment in September -Start zyrtec as listed in meds, could add Pepcid OTC if needed. -Add benadryl OTC if needed for acute issues. Presumed carpal tunnel: -Splint with work and at night -Follow up as needed. Patient to see PCP this month to address labs including recent A1C testing at 6.6. Loni Cao Internal Medicine, PGY-2 Pager [phone] documented in this encounter Plan of Treatment Not on filedocumented as of this encounter Visit Diagnoses Diagnosis Angioedema - Primary Angioneurotic edema not elsewhere classi fied Carpal tunnel syndrome documented in this encounter Care Teams Customer Engagement Representative Relationship Specialty Start Date End Date Denise Darnell MD PCP - General 11/18/11 05/08/15 [facility] GENERAL [place] [address] documented as of this encounter
--- OUTSIDE RECORDS SUMMARY | 2021-12-17 15:08 | XMS_ITS | Encounter Summary ---
:1975 Author Organization [facility] [place] [address] Care Team Providers Name Role Phone Denise Darnell MD Primary Care Provider Encounter Details Date Type Department Care Team Description 07/18/2012 Hospital Encounter Laboratory Denise Darnell, Galactorrhea [facility] [place] [address] GENERAL INTERNAL MEDICINE [place] [address] (Wo rk) Social History Tobacco Use Types [...] Sig Dispensed Refills Start Date End Date triamcinolone (KENALOG) Apply topically 2 30 g 1 07/18 0.025 % cream times daily. multivitamin (THERAGRAN) Take 1 tablet by 0 tablet mouth daily. cetirizine (ZYRTEC) 10 Take 1 tablet by 60 tablet 3 013 09/20/2012 mg tablet mouth 2 times daily as needed (Itching). levothyroxine Take 1 tablet by 60 tablet 0 06/13/201211/25 (SYNTHROID) 25 mcg mouth daily. Take tablet with 125 mcg tablet to make total dose 150 mcg per day levothyroxine Take 1 tablet by 90 tablet 12 06/12/201211/25 (SYNTHROID) 125 mcg mouth daily. tabletIndications: Obesity FLUoxetine (PROZAC) 20 Take 1 capsule by 90 capsule 3 201211/30/2013 mg capsule mouth daily. Pantoprazole (PROTONIX) Take 40 mg by mouth 90 each 3 06/201211/30/2013 40 mg GrPSIndications: daily. GERD (gastroesophageal reflux disease) SUMAtriptan (IMITREX) 50 Take 1 tablet by 18 tablet 0 04/1109/21/2012 mg tablet mouth as needed for Migraine (migraine 50-100 mg--may repeat after 2h (not to exceed 200 mg in 24 hours)). naproxen (NAPROSYN) 250 Take 1 tablet by 0 201109/20/2012 mg tablet mouth 2 times daily (with meals). acetaminophen (TYLENOL Take 650 mg by mouth 0 10/18/2016 ARTHRITIS PAIN) 650 mg every 8 hours as CR tablet needed. Do not exceed 6 tabs in 24 hours documented as of this encounter Plan of Treatment Not on filedocumented as of this encounter Procedures Procedure Name Priority Date/Time Associated Diagnosis Comme nts PROLACTIN Routine 07/18/2012 9:48 AM Galactorrhea Results f or this EDT procedure are i n the results section . documented in this encounter Results Prolactin (07/18/2012 9:48 AM EDT) P athologist Signature Prolactin 14.2 4.8 - 23.3 CERNER ng/mL MILLENNIUM Specimen Anatomical Collection Method Collection Time Receive d Time (Source) Location / / Volume Laterality Blood specimen 07/18/2012 9:48 AM 013 9:52 (specimen) EDT AM EDT Resulting Agency Comment Spec In Lab Denise Darnell MD CHEMISTRY ORDERABLES Performing Organization Address City/State/[place] [address] CEREKTA DELGADILLOENNIUM documented in this encounter Visit Diagnoses Diagnosis Galactorrhea Galactorrhea not associated with childbi rth documented in this encounter Care Teams Field Technical Specialist Relationship Specialty Start Date End Date Denise Darnell MD PCP - General 11/18/11 05/08/[address] [facility] [address] GENERAL [place] [address] documented as of this encounter
--- OUTSIDE RECORDS SUMMARY | 2021-12-17 15:08 | XMS_ITS | Encounter Summary ---
:1975 Author Organization [facility] [place] [address] Care Team Providers Name Role Phone Denise Darnell MD Primary Care Provider Encounter Details Date Type Department Care Team Description 11/07/2012 Telephone Internal Medicine at [facility] Yasmeen Posey MD [facility] [place] [address] GENERAL INTERNAL MEDICINE [phone] [place], [place] [address] (Wo rk) Social History Tobacco [...] Telephone Encounter - Yasmeen Posey MD - 11/07/2012 5:05 PM EDT I received a message from RN that the patient called an requested a leg brace. The patient has not followed up with me since May 2012; at the time of last visit I recommended her to follow up in July-August 2012. I tried to call but she did not answer the phone. I left a generic message requesting that she wouldcome and see me to talk about leg pain and her chronic health issues. Yasmeen Posey MD, PhD Internal Medicine PGY2 documented in this encounter Plan of Treatment Not on filedocumented as of this encounter Visit Diagnoses Not on filedocumented in this encounter Care Teams Watch Electrician Relationship Specialty Start Date End Date Denise Darnell MD PCP - General 11/18/11 05/08/15 [facility] GENERAL [place] [address] documented as of this encounter
--- OUTSIDE RECORDS SUMMARY | 2021-12-17 15:08 | XMS_ITS | Encounter Summary ---
:1975 Author Organization [place] [address] Care Team Providers Name Role Phone Marisa Pinto MD Primary Care Provider Encounter Details Date Type Department Care Team Description 10/04/2011 Hospital Encounter Laboratory Amrik Spence MD Hypothyroid [facility] [place] [address] GENERAL INTERNAL [phone] MEDICINE [place] [phone] (Wo rk) Social History Tobacco Use Types [...] 1 tablet by 0 tablet mouth daily. levothyroxine (SYNTHROID) Take 1 tablet by 30 tablet 12 08/0606/12/2012 25 mcg tablet mouth daily. SUMAtriptan (IMITREX) 50 Take 1 tablet by 10 tablet 0 08/0604/11/2012 mg tablet mouth as needed for Migraine (migraine 50-100 mg--may repeat after 2h (not to exceed 200 mg in 24 hours)). levothyroxine (SYNTHROID) Take 1 tablet by 30 tablet 5 07/0504/10/2012 125 mcg mouth daily. tabletIndications: Obesity Pantoprazole (PROTONIX) Take 40 mg by mouth 90 each 3 01/201204/10/2012 40 mg SuDRIndications: daily. GERD (gastroesophageal reflux disease) naproxen (NAPROSYN) 250 Take 1 tablet by 0 201109/20/2012 mg tablet mouth 2 times daily (with meals). acetaminophen (TYLENOL Take 650 mg by mouth 0 10/18/2016 ARTHRITIS PAIN) 650 mg CR every 8 hours as tablet needed. Do not exceed 6 tabs in 24 hours documented as of this encounter Plan of Treatment Not on filedocumented as of this encounter Procedures Procedure Name Priority Date/Time Associated Diagnosis Comme nts TSH Routine 10/04/2011 10:15 AM Hypothyroid Results for this EDT procedure are i n the results section . documented in this encounter Results TSH (10/04/2011 10:15 AM [...] Organization Address City/State/ZIP Code Phon e Number [place] [phone] CERNER MILLENNIUM documented in this encounter Visit Diagnoses Diagnosis Hypothyroid Unspecified hypothyroidism documented in this encounter Care Teams Front Desk Monitor Relationship Specialty Start Date End Date Marisa Pinto MD PCP - General 08/30/11 11/17/[address] [place] [address] documented as of this encounter
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
--- OUTSIDE RECORDS SUMMARY | 2021-12-17 15:08 | XMS_ITS | Encounter Summary ---
:1975 Author Organization [facility] [place] [address] Care Team Providers Name Role Phone Denise Darnell MD Primary Care Provider Reason for Visit Reason Onset Date Comments Other 07/16/2011 MAP-Pt walk in-appl given Encounter Details Date Type Department Care Team Description 07/16/2011 Telephone Care Management [place] Other (MAP-Pt walk [facility] in-appl ricardo masters) [place] [phone] Social History Tobacco Use Types Packs/Day [...] Notes Telephone Encounter - [place] - 07/16/2011 4:33 PM EDT MAP-Pt walk in-appl given Evita came into [facility]-requested assistance with Protonix-gave appl for [facility]-and requested to complete appl and mail back with income documentation. Evita stated that she has [place]-Medicaid. Copy for file. Pt took prescription with her-will try to getit filled with Medicaid-if they will not she will return appl with income doc and prescription to [facility] [id number] documented in this encounter Plan of Treatment Not on filedocumented as of this encounter Visit Diagnoses Not on filedocumented in this encounter Care Teams Elevating Grader Operator Relationship Specialty Start Date End Date Denise Darnell MD PCP - General 01/27/10 08/29/11 [facility] GENERAL [place] [address] documented as of this encounter
--- OUTSIDE RECORDS SUMMARY | 2021-12-17 15:08 | XMS_ITS | Encounter Summary ---
:1975 Author Organization [facility] [place] [address] Care Team Providers Name Role Phone Denise Darnell MD Primary Care Provider Reason for Visit Reason Comments Obstructive Sleep Apnea Encounter Details Date Type Department Care Team Description 10/11/2012 Office Visit Sleep Center at [facility], HALEY on CPAP (Primary [address] HUMAN RESOURCES EXECUTIVE ASSISTANT Dx) [address] [place] [address] Social History Tobacco Use Types Packs/Day Years [...] Sign Reading Time Taken Comments Blood Pressure 126/88 10/11/2012 10:40 AM EDT Pulse 65 10/11/2012 10:40 AM EDT Temperature - - Respiratory Rate - - Oxygen Saturation 96% 10/11/2012 10:40 AM EDT Inhaled Oxygen Concentration - - Weight 156.9 kg (346 lb) 10/11/2012 10:40 AM EDT Height - - Body Mass Index 51.1 09/20/2012 2:13 PM EDT documented in this encounter Progress Notes [facility], HUMAN RESOURCES EXECUTIVE ASSISTANT - 10/11/2012 10:44 AM EDT Sleep Medicine Clinical Health Specialist Brief Follow-Up Note HPI: Ms. Evita Singleton is a 37 y.o. female seen for follow-up of obstructive sleep apnea. Patient presents today for follow-up in PAP clinic: Treatment: CPAP Pressure: 16 cm Interface: FFM-Quattro Fit: yes Chin strap: no Humidifier Setting: Unknown-did not bring card Mouth Breathing: yes Dry Mouth: Better with humidity turned up Barriers to Usage: In the beginning with CPAP she had some nights without it but is now using every night Benefits: I notice I'm waking easier, feeling ready to go, not falling asleep at the wheel and less tired during the day. ROS: ENT: Nasal Obstruction: Yes, allergies DERM: Skin Irritation: Not now Compliance Card Data: No card data-patient forgot to bring it with her today Assessment Ms. Evita Singleton is a 37 y.o. female seen for obstructive sleep apnea. Patient forgot tobring her card today, however she knows to bring the card to her next appt. Ms. Singleton reports positive results with CPAP therapy- having good tolerance with CPAP/ Mask and realized improvement in both nocturnal and daytime symptoms. I did recommend the Pad A Cheek mask liner for overall mask comfort. Humidifier/water chamber function/rational and settings were reviewed with the patient. Mask fit/assembly also was reviewed with the patient along with supply replacement. RTC is scheduled with Dr. Reynoso in Nov. Time spent face to face: 15 Min. Recomendations: 1) CPAP 16 cw with ramp. Humidity setting 4. 2) Follow-up: RTC one year/PRN with Apolonia 3) Has a scheduled F/U with Dr. Reynoso The patient indicates understanding of these issues and agrees with the plan. documented in this encounter Plan of Treatment Not on filedocumented as of this encounter Visit Diagnoses Diagnosis HALEY on CPAP - Primary Obstructive sleep apnea (adult) (pediatr ic) documented in this encounter Care Teams Entertainment Reporter Relationship Specialty Start Date End Date Denise Darnell MD PCP - General 11/18/11 05/08/15 [facility] GENERAL [place] [address] documented as of this encounter
--- OUTSIDE RECORDS SUMMARY | 2021-12-17 15:08 | XMS_ITS | Encounter Summary ---
:1975 Author Organization [facility] [place] [address] Care Team Providers Name Role Phone Denise Darnell MD Primary Care Provider Encounter Details Date Type Department Care Team Description 07/27/2012 Telephone Internal Medicine [place] [facility] Dyan Jones RN [facility] [place] [address] Social History Tobacco Use Types Packs/Day [...] Telephone Encounter - Dyan Jones RN - 07/27/2012 9:15 AM EDT Pt developed left sided Lip swelling this am. No difficulty with air way Or SOB. No change in meds or OTC preparations.. Had similar swelling on right side but went away gradually. Plan:appt today to evaluation documented in this encounter Plan of Treatment Not on filedocumented as of this encounter Visit Diagnoses Not on filedocumented in this encounter Care Teams Weaving Loom Operator Relationship Specialty Start Date End Date Denise Darnell MD PCP - General 11/18/11 05/08/15 [facility] [address] [place] [address] documented as of this encounter
--- OUTSIDE RECORDS SUMMARY | 2021-12-17 15:08 | XMS_ITS | Encounter Summary ---
:1975 Author Organization [facility] [place] [address] Care Team Providers Name Role Phone Denise Darnell MD Primary Care Provider Encounter Details Date Type Department Care Team Description 10/25/2012 Office Visit Internal Medicine at [facility] Leticia Chino LD [facility] [place] [phone] [place] [id number] Social History Tobacco Use Types Packs/Day Years Used Date Former Smoker Cigarettes 2 10 Quit: 09/05/19 11 Smokeless Tobacco: Never Used Comments: quits during Alcohol Use Standard Drinks/Week Comments No 0 (1 standard drink = 0.6 oz pure alcoho l) n/a Sex Assigned at Date Recorded Female 05/09/2020 7:27 PM EST documented as of this encounter Progress Notes Leticia Chnio LD - 10/25/2012 1:39 PM EDT 341.8lbs Was down to 334.5lbs in August Lost 15lbs by drinking lots of water. Huge salad middle of the day. Light supper (one cheeseburger instead of 2). When high anxiety or has her period will go for it Is hardly doing any juice. Is doing whole wheat, 1% milk. documented in this encounter Plan of Treatment Not on filedocumented as of this encounter Visit Diagnoses Not on filedocumented in this encounter Care Teams Intern Retail Relationship Specialty Start Date End Date Denise Darnell MD PCP - General 11/18/11 05/08/15 [facility] GENERAL [place] [address] documented as of this encounter
--- OUTSIDE RECORDS SUMMARY | 2021-12-17 15:08 | XMS_ITS | Encounter Summary ---
:1975 Author Organization [facility] [place] [address] Care Team Providers Name Role Phone Denise Darnell MD Primary Care Provider Reason for Referral Allergy Testing (Routine) - Closed Specialty Diagnoses / Procedures Referred By Contact Refer red To Contact Allergy Diagnoses Pruritus Brody Hernandez MD [facility] [address] [place] [phone] [place] [address] Referral ID Status Reason Start Date Expiration Date Visits V isits Requested Authorized [id number] Closed Consult, 07/18/2012 01/14/2013 1 1 Test & Treat Consultation (Routine) - Closed Specialty Diagnoses / Procedures Referred By Contact Refer red To Contact Dermatology Diagnoses Pruritus Brody Hernandez MD [facility] [address] [place] [address] [place] [address] [place] [address] Referral ID Status Reason Start Date Expiration Date Visits V isits Requested Authorized [id number] Closed Consult, 07/18/2012 01/14/2013 1 1 Test & Treat Reason for Visit Reason Comments Rash ? hives Urticaria Encounter Details Date Type Department Care Team Description 07/18/2012 Office Visit Internal Medicine at Adithya Hernandez MD Pruritus (Primary Dx); [facility] Galactorrhea [facility] [address] GENERAL INTERNAL [place], [place] MEDICINE [address] [place] [address] [phone] Social History Tobacco Use Types Packs/Day Years [...] Sign Reading Time Taken Comments Blood Pressure 155/97 07/18/2012 10:03 AM EDT Pulse 63 07/18/2012 10:03 AM EDT Temperature 36.6 ??C (97.9 ??F) 07/18/2012 10:03 AM EDT Respiratory Rate 22 07/18/2012 10:03 AM EDT Oxygen Saturation 100% 07/18/2012 10:03 AM room air EDT Inhaled Oxygen Concentration - - Weight 158.9 kg (350 lb 6.4 07/18/2012 10:03 AM without shoes oz) EDT Height 175.3 cm (5' 9) 07/18/2012 10:03 AM EDT Body Mass Index 51.75 07/18/2012 10:03 AM EDT documented in this encounter Patient Instructions Patient InstructionsBrody Hernandez - 07/18/2012 10:43 AM EDT Please try to avoid naproxen or other NSAID medications if able (ie. Ibuprofen, etc) and see if thisimproves your itching. documented in this encounter Progress Notes Nan Dunn MD - 07/18/2012 10:25 AM EDT The case was discussed at the time of the visit or immediately after the visit. The assessment and plan were formulated in discussion with me and I agree with them as documented. I have reviewed the history, physical exam, assessment and plan with the resident. Major issues discussed today: Here for Diffuse itching and galactorrhea. Itch includes her nipples. Had a baby 2 yrs ago and breast fed at that time. BP 155/97 Pulse 63 Temp(Src) 36.6 ??C (97.9 ??F) (Oral) Resp 22 Ht 175.3 cm (5' 9) Wt 158.94 kg (350 lb 6.4 oz) BMI 51.74 kg/m2 SpO2 100% LMP 07/08/2012 Morbidly obese; Breasts: no rashes, nipples appear normal, everted, not cracked or excoriated, no nodules, non tender, unable to express discharge. Back, legs, arms: no rash or hives noted other than rt arm antecub space (due to tape) Plan: Pruritis x 1 yr and recent galactorrhea. Possible etiologies for pruritis include eczema or an allergy - possibly to the NSAID she takes twice daily. Skin does not appear to be dry, and there are no signs of tracks or excoriations to suggest scabies. TSH is elevated but hypothyroidism is less likely to cause pruritis. Recent LFTs are mildly up but the normal Alk Phos- makes PBC less likely. No constitutional sx's to suggest malignancy. Suggest anti-histamines. Gabapentin could be an option. Consider referring to allergy clinic and / or derm. Galactorrhea: This may be normal in a woman with breast stimulation given somewhat recent hx of . She had to express the discharge, and has not had leakage, pain or tenderness. Check prolactin. Ruled out offending meds. Further work up if indicated. Brody Hernandez - 07/18/2012 10:13 AM EDT Subjective: Patient ID: Evita Singleton is a 37 y.o. female. HPI Evita is a 37 y.o. female who comes in today for SDA clinic appointment complaining of diffuse bodily pruritus. She states that her symptoms have been occurring for about a year or so. She has tried benadryl with minimal/no relief. She has no other allergies that she is aware of apart from what is onher chart, and she has had no exposures to her allergens. She has no new pets, no dietary changes, no recent travel, no new soaps/detergents, no fatigue, no headache, no vision changes, no hair/skin changes apart from a rash in areas that are itchy. She has had hives at times that are diffuse and don't seem to be localized to any specific area. She has no pain. She was recently started on lisinopril (last week), but her PCP told her to stop it secondary to a swollen bottom lip (coupled with her pruritus). The lip swelling has since resolved, although the pruritus is unaffected. In clinic she mentions that the adhesive tape that was used after her recent blood draw is causing ari. Additionally, she mentions that her nipples have been somewhat itchy and that she is able to express milk from them at times to relief the itch. The fluid is not foul-smelling, non-bloody. She has noticed no breast lumps, and has no pain in the area. There is no ongoing discharge from the nipples as long as she does not attempt to express milk. She has had no chafing nor peeling from her nipples. She has been working on her weight, and has lost about 8 lbs over the past month. Otherwise has had no weight loss and has had no night sweats. Review of Systems Constitutional: Negative for fever, chills, diaphoresis, activity change, appetite change, fatigue and unexpected weight change. HENT: Negative. Eyes: Negative. Respiratory: Negative. Cardiovascular: Negative. Gastrointestinal: Negative. Genitourinary: Negative. Musculoskeletal: Negative. Skin: Positive for rash (Redness in areas of itchiness at times). Negative for color change, pallor and wound. Neurological: Negative. Hematological: Negative. Psychiatric/Behavioral: Negative. All other systems reviewed and are negative. Objective: Physical Exam Vitals reviewed. Constitutional: She is oriented to person, place, and time. She appears well- developed and well-nourished. No distress. Obese woman, in NAD, pleasant HENT: Head: Normocephalic and atraumatic. Mouth/Throat: No oropharyngeal exudate. Eyes: No scleral icterus. Neck: Normal range of motion. Pulmonary/Chest: Breast exam: Nipples normal appearing with no erythema, no dryness, no cracking, no flaking. There is no discharge bilaterally. There are no breast masses Musculoskeletal: She exhibits no edema. Neurological: She is alert and oriented to person, place, and time. Skin: Skin is warm and dry. Rash (Slight erythema in areas on right arm.) noted. She is not diaphoretic. Erythema over area where adhesive tape was applied. Some discoloration over area of lower back where patient states she was itching. Psychiatric: She has a normal mood and affect. Her behavior is normal. Prolactin -- WNL Assessment and Plan: Evita is a 37 y.o. female who presents today with signs and symptoms of chronic pruritus. There is no obvious cause for this problem. Hyperthyroidism is not an issue, and she has no allergies that canbe pinpointed. The lack of other symptoms and her age indicate that a malignancy is very unlikely inthis woman. There is still the possibility of an undiagnosed allergen vs idiopathic urticaria which can be associated with obesity. She will likely benefit from an allergy as well as dermatology referral. Otherwise, her galactorrhea is likely secondary to her stimulating her nipples to express milk rather than due to an etiology such as prolactinoma. Notably her prolactin level is normal in clinic today, and the lack of headaches, vision changes, etc, makes a pituitary unlikely. Paget's disease of the nipple is also unlikely given the lack of usual features. NSAIDs can sometimes cause urticaria, and so I advised her to try to avoid her naproxen as able. Given these results I feel it is safe to focus on her urticaria and simply monitor her nipple discharge with time. # Pruritus - Cetirizine 10mg PO BID - Triamcinolone topically BID - Allergy referral - Dermatology referral - Hold off on NSAIDs if able # Galactorrhea - No prolactinoma - Will monitor # Follow-up - As scheduled with PCP documented in this encounter Plan of Treatment Scheduled Referrals Name Type Priority Associated Order Schedule Diagnoses Referral to Outpatient Referral Routine Pruritus Ordered: Dermatology 07/18/2012 Referral to Allergy Outpatient Referral Routine Pruritus O rdered: 07/18/2012 documented as of this encounter Visit Diagnoses Diagnosis Pruritus - Primary Unspecified pruritic disorder Galactorrhea Galactorrhea not associated with childbi rth documented in this encounter Care Teams Structural Steel Fitter Relationship Specialty Start Date End Date Denise Darnell MD PCP - General 11/18/11 05/08/15 [facility] [place] [address] documented as of this encounter
--- OUTSIDE RECORDS SUMMARY | 2021-12-17 15:08 | XMS_ITS | Encounter Summary ---
:1975 [place] [address] Care Team Providers Name Role Phone Denise Darnell MD Primary Care Provider Reason for Visit Reason Comments Obstructive Sleep Apnea Encounter Details Date Type Department Care Team Description 08/03/2012 Office Visit Sleep Center at Yana Rodgers M D HALEY ([facility] sleep apnea) (Primary [address] Dx) [place], [place] SLEEP DISORDERS [id number] CENTER [phone] [place], [place] [address] (Wo rk) Social History Tobacco [...] Sign Reading Time Taken Comments Blood Pressure 140/98 08/03/2012 9:23 AM EDT Pulse 68 08/03/2012 9:23 AM EDT Temperature - - Respiratory Rate - - Oxygen Saturation 97% 08/03/2012 9:23 AM EDT Inhaled Oxygen Concentration - - Weight 156.9 kg (346 lb) 08/03/2012 9:23 AM EDT Height 175.3 cm (5' 9) 08/03/2012 9:23 AM EDT Body Mass Index 51.1 08/03/2012 9:23 AM EDT documented in this encounter Progress Notes Dilip Valdez MD - 08/08/2012 2:14 PM EDT I saw and evaluated the patient with Dr. Rodgers. I reviewed moran aspects of the history and examination. I received her note and agree with the findings and recommendations. DILIP VALDEZ MD Yana Rodgers MD - 08/03/2012 9:26 AM EDT Sleep Medicine Consultation Note HPI: Ms. Evita Singleton is a 37 y.o. female seen at the request of Dr. Darnell for advice regardingOSA. Patient was diagnosed with severe HALEY AHI 76 in jan 2009 and was recommended to be started on CPAP at 10 cwp. She got her CPAP machine . She reports that it was her boyfriend that complained aboutthe machine. She used it for a week and got good sleep. She hasn't used the machine since then. She had liked the mirage quattro full face mask medium size. She reports that she gets maybe 3-4 hrs of sleep at night, going to the bathroom every hour, waking up with nightmares. She does snore, has witnessed apneas. Her 2 yr old son shares the room with her now. snoring Severity: loud Quality:heard in other rooms Duration: many years Timing: not sure Modifying factors: not sure Associated symptoms: witnessed apneas Sleep Pattern: Location: bedroom Bed/Recliner/Wedge: bed, 1-3 pillows Position: all positions Bedtime: midnight to 1 am Lights out: sometimes leaves the light on due to PTSD Latency: 30 MIN Awakenings: 4-5 times Duration: few minutes Reason: bathroom, nightmares Wake time: 5-6 am Rise time: 30 min Days off: same Shift Work: 2 evenings she works 1-9 pm Daytime Symptoms: Palco:20 Upon Awakening: tired Naps: every day, around 1 pm, naps for an 1-1.5 hr Involuntary Dozing: yes Cognitive Symptoms: less alert. concentrated Driving: The patient does report problems with sleepiness and driving. Close calls related to sleepiness yes, had a couple of close calls, usually tries to roll down windows, sings, forces herself to stay awake Accidents related to sleepiness denies Sleep Symptoms: Respiratory: Snoring: yes Observed Apneas: yes Mouth Breathing: yes Dry Mouth: yes Nocturnal Gasping: yes Nasal Obstruction: yes Weight: gained weight Parasomnias: Sleep Walking: on ambien, she sleep walks Dream Enactment: yes , very rarely Bruxism: denies Motor: RLS: denies PLMS: yes Narcolepsy: Hallucinations: denies Paralysis: denies Cataplexy: denies Family History: Family history of sleep disorders: maybe her mom has HALEY, Uncle has HALEY Patient Active Problem List Diagnoses Code ??? [...] ??? HALEY (obstructive sleep apnea) 327.23 Past Medical History Diagnosis Date ??? Diabetes [...] ??? Eye problems 2007 stigmatism ??? Headache 1999 migraine and regular headaches ??? Urinary disorder 2004 urinary incontinence with stress...gall stones ??? Mental or behavioral problem 2003 depression anxiety ocd ptsd obese with dv partner 18 yrs ??? Skin disorder 1983 acne ??? Hormone disorder 2004 thyroidism Past Surgical History Procedure Date ??? Created by interface SURGICAL EXTRACTIONS,REMOVAL OF IMPACTED TOOTH,PARTAILLY / Procedure Date: 01/01/2009 ??? Cholecystectomy 2006 ??? section 12/1999 twins ??? delivery only 07/10/2010 ?? DELIVERY performed by ELEANOR NELSON at [facility] ??? Unlisted evaluation service 2002 gall bladder...gall stones ??? Gastroenterology procedure 2002 gall bladder...gall stones ??? Genital surg proc, female unlisted 1999 2010 twins and single ... ??? Cranio/maxillofacial surg unlisted 2007 all 4 wisdom teeth out ??? 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 Filed Vitals: 08/03/12 0923 BP: 140/98 Pulse: 68 Height: 175.3 cm (5' 9) Weight: 156.945 kg (346 lb) SpO2: 97% Eyes: Conjunctivae: normal EOM: intact ENT: MP: 4 Facial deformity: nad Hard palate: nad Soft palate: nad Gums and teeth: nad Tongue: nad Nares: nad Pul: Respirations: not laboured Auscultation: clear to auscultattion Cardiac: LE edema: 1 + edema Neck/Lymphatics: Lymphadenopathy: nad Masses: nad Circumference: 17 in Neuro: no resting tremor Musculoskeletal: Gait and stance: normal Assessment: Ms. Evita Singleton is a 37 y.o. female seen with prior history of severe HALEY. She has notused her Cpap since 2009 but still has her machine. She is interested in trying CPAP again. We will schedule her for CPAP titration study to check her pressures as she has gained significant weight andcheck for adequate oxygenation. We discussed driving safety in great detail. I advised her to refrain from driving as much as possible and to press puller and take a nap when she is sleepy while driving. Time spent face to face: 60 min Time spent devoted to counseling and discussion: 45 min Recommendations: 1) CPAP titration study 2) Driving safety was reviewed with patient. If the patient feels too sleepy to drive he/she knows not to drive. If he/she becomes sleepy while driving he/she will press puller and nap The patient indicates understanding of these issues and agrees with the plan. Case was discussed with Dr. Valdez. documented in this encounter Plan of Treatment Not on filedocumented as of this encounter Visit Diagnoses Diagnosis AHLEY (obstructive sleep apnea) - Primary Obstructive sleep apnea (adult) (pediatr ic) documented in this encounter Care Teams Color Dipper Relationship Specialty Start Date End Date Denise Darnell MD PCP - General 11/18/11 05/08/15 [facility] GENER[place] [address] documented as of this encounter
--- OUTSIDE RECORDS SUMMARY | 2021-12-17 15:08 | XMS_ITS | Encounter Summary ---
:1975 Author Organization [facility] [place] [address] Care Team Providers Name Role Phone Denise Darnell MD Primary Care Provider Encounter Details Date Type Department Care Team Description 08/07/2011 Telephone [place] Medicine [place] [facility] Shell [place] MD [facility] [place] [address] GENERAL INTERNAL MEDICINE [phone] [place], [place] [address] (Wo rk) Social History Tobacco [...] this encounter Miscellaneous Notes Telephone Encounter - Shell Carson MD - 08/07/2011 2:28 PM EDT scalloper Pt with headache-no particular spot-light sensitve-needs to be in dark [id number] her previous migraines--had in past however abated after wisdom teeth extraction in the past--this sinha like her past migraines Has tried nsaids otc Would like rx for imitrex (has taken in the past -no h/o of adverse sx with this) Not rx sent documented in this encounter Plan of Treatment Not on filedocumented as of this encounter Visit Diagnoses Not on filedocumented in this encounter Care Teams Furnace Mechanic Helper Relationship Specialty Start Date End Date Denise Darnell MD PCP - General 01/27/10 08/29/11 [facility] GENERAL [place] [address] documented as of this encounter
--- OUTSIDE RECORDS SUMMARY | 2021-12-17 15:08 | XMS_ITS | Encounter Summary ---
:1975 Author Organization [facility] Address [facility] [place] [address] Care Team Providers Name Role Phone Denise Darnell MD Primary Care Provider Encounter Details Date Type Department Care Team Description 07/16/2011 Hospital Encounter Laboratory Kentrell Guerra MD Hypothyroid; [facility] [place] [address] ENDOCRINOLOGY DEPT. [phone] [place] [id number] (Wo rk) Social History Tobacco Use Types [...] by 30 tablet 5 07/0504/10/2012 125 mcg tabletIndications: mouth daily. Obesity Pantoprazole (PROTONIX) 40 Take 40 mg by mouth 90 each 3 07/16/2011 04/10/2012 mg SuDRIndications: GERD daily. (gastroesophageal reflux disease) naproxen (NAPROSYN) 250 mg Take 1 tablet by 0 01/201209/20/2012 tablet mouth 2 times daily (with meals). acetaminophen (TYLENOL Take 650 mg by 0 10/18/2016 ARTHRITIS PAIN) 650 mg CR mouth every 8 hours tablet as needed. Do not exceed 6 tabs in 24 hours documented as of this encounter Plan of Treatment Not on filedocumented as of this encounter Procedures Procedure Name Priority Date/Time Associated Diagnosis Comme nts VITAMIN D, Routine 07/16/2011 3:45 PM Pre-diabetes Results f or this 25-HYDROXY EDT procedure are i n the results section. TSH Routine 07/16/2011 3:45 PM Hypothyroid Results f or this EDT procedure are i n the results section. LDL CHOLESTEROL, Routine 07/16/2011 3:45 PM Resul ts for this DIRECT EDT procedure are i n the results section. LIPID PANEL (REFLEX Routine 07/16/2011 3:45 PM Pre-diabetes Re sults for this DIRECT LDL) EDT procedure are i n the results section. documented in this encounter Results (ABNORMAL) LDL CHOLESTEROL, DIRECT (07/16/2011 3:45 PM EDT) athologist Signature LDL Chol 127 (H) <=99 mg/dL CERNER Direct [facility] Comment: The National Cholesterol Education Progr am (NCEP) has set the following guidelines for LDL Cholesterol: Reference range: ?? Optimal: ?<100 mg/dL ?? Near Optimal/Above Optimal: ?? 100-1 29 mg/dL ?? Borderline high: ?130-159 mg/dL ?? High: ? 160-189 mg/dL ?? Very high: ?>rk=887 mg/dL KEITH 2001: 285(19):[phone] Specimen Anatomical Collection Method Collection Time Receive d Time (Source) Location / / Volume Laterality Blood specimen 07/16/2011 3:45 PM 012 3:57 (specimen) EDT PM EDT Resulting Agency Comment Spec In Lab Kentrell Guerra MD CHEMISTRY ORDERABLES Performing Organization Address City/State/[place] [address] [facility] (ABNORMAL) Lipid panel (fasting) (07/16/2011 3:45 PM EDT) athologist Signature Chol, Total 204 (H) <=199 CERNER mg/dL [facility] Comment: Recommendations of the NCEP Adult Treatm ent Panel for the following risk cutoff thresholds for the [place] populatio n: Desirable: <200 mg/dL Borderline High: 200-239 mg/dL High: > or = 240 mg/dL Triglycerides 447 (H) <=149 mg/dL CERNER MILLENN I[facility] Comment: Reference Range: Normal triglycerides: ??<150 mg/dL Borderline high: ??150-199 mg/dL High: ??200-499 mg/dL Very high: ??>ig=844 mg/dL KEITH 2001; 285(19):5820-9266 HDL 36 (L) >=40 mg/dL [facility] Comment: Reference range: ??Low HDL: ?? < 40 mg/dL ??Normal: ?40-60 mg/dL ??Desirable: > 60 mg/dL KEITH 2001; 285(19):5126-8785 LDL Cholesterol Not Calculated <=99 mg/dL [facility] Espinoza ILL[facility] Comment: Since a calculated LDL value is not debo d for triglycerides greater than 400 mg/dl, a direct LDL determination is per formed instead. Reference range: ?? Optimal: ?<100 mg/dL ?? Near Optimal/Above Optimal: ?? 100-1 29 mg/dL ?? Borderline high: ?130-159 mg/dL ?? High: ? 160-189 mg/dL ?? Very high: ?>ku=961 mg/dL KEITH 2001: 285(19):8741-8878 Chol/HDL Ratio 5.7 ratio [facility] MILLEN[facility] Comment: A Cholesterol to HDL ratio below 4:1 is desirable. ??Studies suggest that increased CAD risk occurs at ratios abov e 5 for females and above 6 for men. ? [place] Heart Association ??(htt p://www.americanheart.org) ? Luzmaria Int Med, 1994; 121:641 ? AM J Med, 1998; 105(1A):48S Specimen Anatomical Collection Method Collection Time Receive d Time (Source) Location / / Volume Laterality Blood specimen 07/16/2011 3:45 PM 012 3:54 (specimen) EDT PM EDT Resulting Agency Comment Spec In Lab Kentrell Guerra MD CHEMISTRY ORDERABLES Performing Organization Address City/State/[place] [address] CERNER MILLENNIUM VIT D Total 25 Hydroxy (07/16/2011 3:45 PM EDT) P athologist Signature 25-OH Vit D 33 30 - 100 CERNER Total ng/mL [facility] Comment: Deficient <10 ng/mL Insufficient 10 to 29 ng/mL Sufficient 30 to 100 ng/mL Potential Intoxication >100 ng/mL According to the [place] National Osteoporosi s Foundation, Vitamin D concentrations >30 ng/mL are sufficient to protect bone health. ??The National Kidney Foundation has similarly stated that pat ients with Vitamin D concentrations <30ng/mL should be considered to be insu fficient or deficient. http://www.kidney.org/professionals/KDOQ I/guidelines_bone/Guide7.htm http://www.nof.org/professionals/clinica l-guidelines The IDS iSYS Vitamin D Immunoassay detec ts both 25-OH Vitamin D2 and 25-OH Vitamin D3, but only a total Vitamin D c oncentration is reported. Please note, the performing location for this test has changed. ??As of 04/13/2011 the Vitamin D Total, 25 [place] xy assays are being analyzed by the [facility] Chemistry Laboratory. ??There is NO CHANGE in units. ??Please contact the chemistry laboratory at [phone] with ques tions. Specimen Anatomical Collection Method Collection Time Receive d Time (Source) Location / / Volume Laterality Blood specimen 07/16/2011 3:45 PM 012 3:54 (specimen) EDT PM EDT Resulting Agency Comment Spec In Lab Kentrell Guerra MD CHEMISTRY ORDERABLES Performing Organization Address City/State/[place] [address] CERNER MILLENNIUM (ABNORMAL) TSH (07/16/2011 3:45 PM EDT) P athologist Signature TSH 6.47 (H) 0.27 - 4.20 CERNER mcIU/mL [facility] Specimen Anatomical Collection Method Collection Time Receive d Time (Source) Location / / Volume Laterality Blood specimen 07/16/2011 3:45 PM 012 3:54 (specimen) EDT PM EDT Resulting Agency Comment Spec In Lab Kentrell Guerra MD CHEMISTRY ORDERABLES Performing Organization Address City/[facility]/[place]IP [place] [address] CERNER MILLENNIUM documented in this encounter Visit Diagnoses Diagnosis Hypothyroid Unspecified hypothyroidism Pre-diabetes Other abnormal glucose documented in this encounter Care Teams Claims Adjuster Crop Relationship Specialty Start Date End Date Denise Darnell MD PCP - General 01/27/10 08/29/11 [facility] GENERAL [place] [address] documented as of this encounter
--- OUTSIDE RECORDS SUMMARY | 2021-12-17 15:08 | XMS_ITS | Encounter Summary ---
:1975 Author Organization [facility] [place] [address] Care Team Providers Name Role Phone Denise Darnell MD Primary Care Provider Reason for Visit Reason Onset Date Comments Labs Only 08/25/2011 Encounter Details Date Type Department Care Team Description 08/25/2011 Telephone Endocrinology Maria A North CDE Labs Only [facility] [place] [address] ENDOCRINOLOGY DEPT. [phone] [place], [place] [address] (Wo rk) Social History Tobacco [...] this encounter Miscellaneous Notes Telephone Encounter - Maria A North RN - 08/25/2011 4:26 PM EDT Mellissa Meza in [facility] is going to adjust this patient's levothyroxine as her thyroid results are in the 6's. She will repeat the TSH in 6 weeks. documented in this encounter Plan of Treatment Not on filedocumented as of this encounter Visit Diagnoses Not on filedocumented in this encounter Care Teams Invoicing Specialist Relationship Specialty Start Date End Date Denise Darnell MD PCP - General 01/27/10 08/29/11 [facility] [place] [address] documented as of this encounter
--- OUTSIDE RECORDS SUMMARY | 2021-12-17 15:08 | XMS_ITS | Encounter Summary ---
:1975 Author Organization [facility] [place] [address] Care Team Providers Name Role Phone Denise Darnell MD Primary Care Provider Reason for Visit Reason Onset Date Comments Medication Refill 04/10/2012 Encounter Details Date Type Department Care Team Description 04/10/2012 Refill Internal Medicine at [facility] Yasmeen Posey MD [facility] [address] [facility] [place] [address] GENERAL INTERNAL MEDICINE [phone] [place], [place] [address] (Wo rk) Social History Tobacco [...] on filedocumented in this encounter Care Teams Tuber Helper Relationship Specialty Start Date End Date Denise Darnell MD PCP - General 11/18/11 05/08/15 [facility] GENERAL [place] [address] documented as of this encounter
--- OUTSIDE RECORDS SUMMARY | 2021-12-17 15:08 | XMS_ITS | Encounter Summary ---
:1975 Author Organization [facility] [place] [address] Care Team Providers Name Role Phone Denise Darnell MD Primary Care Provider Reason for Visit Reason Comments Blurred Vision 1 yr f/u glasses and cl chec k Encounter Details Date Type Department Care Team Description 11/19/2011 Follow-Up Ophthalmology at [facility] C Richard Victoria Myopia with [facility] Pipe Javier, OD astigmatism ([place] [address] [facility] Dx) [phone] DR OPHTHALMOLOGY DEPT. [place], [place] [address] Social History Tobacco Use Types Packs/Day Years Used Date Former Smoker Cigarettes 2 10 Quit: 09/05/19 11 Smokeless Tobacco: Never Used Comments: quits during Alcohol Use Standard Drinks/Week Comments No 0 (1 standard drink = 0.6 oz pure alcoho l) n/a Sex Assigned at Date Recorded Female 05/09/2020 7:27 PM EST documented as of this encounter Progress Notes Richard Victoria, OD - 11/21/2011 6:22 PM EDT Evita Singleton is a 36 y.o. female who had a chief complaint of Blurred Vision. Mild Rx change. Good ocular health on today's exam. Assessment: Encounter Diagnoses Code Name Primary? 367.1AC Myopia with astigmatism Yes Plan: 1)Refractive Error - MRx given to patient. 2)CL trials ordered. Pt to let me know how they are working. Follow up: CEE 1 year. CL check prn after trials. Eyeglass Final Rx Sphere Cylinder [place] Right -4.50 +0.50 030 Left -4.25 +1.00 125 Expiration Date: 11/19/2013 Current Contact Lens Rx Brand Base Curve Sphere Cylinder [place] Diameter Right Acuvue 2 8.3 -3.75 Left SL 66 Toric 8.5 -3.50 -0.75 030 Current Contact Lens Rx #2 (Trial Lens) Brand Base Curve Sphere Cylinder [place] Diameter Right Frequency 55 8.40 -4.00 14.2 Left Frequency 55 Toric 8.40 -3.50 -0.75 030 14.4 documented in this encounter Nursing Notes 11/19/2011 8:30 AM EDT >> RICHARD VICTORIA, GRUPO TueNov 19, 2011 9:52 AM Here for CERenae. TRAVIS 10/15. Stopped wearing contacts because one was uncomfy but doesn't know which. Gestational diabetes only. Allergy gtts prn OTC ones. Got new glasses last year. >> KATHI BURTON, AKIRA TueNov 19, 2011 9:15 AM Pt c/o 1 of her cl's didn't fit well but she doesn't remember which one. Pt did not bring cl's with her today. Pt states diabetes went away after she had her baby in july 2010. documented in this encounter Plan of Treatment Not on filedocumented as of this encounter Visit Diagnoses Diagnosis Myopia with astigmatism - Primary Myopia documented in this encounter Care Teams Energy Auditor Relationship Specialty Start Date End Date Denise Darnell MD PCP - General 11/18/11 05/08/15 [facility] [place] [address] documented as of this encounter
--- OUTSIDE RECORDS SUMMARY | 2021-12-17 15:09 | XMS_ITS | Encounter Summary ---
:1975 [place] [address] Care Team Providers Name Role Phone Denise Darnell MD Primary Care Provider Encounter Details Date Type Department Care Team Description 07/10/2010 Anesthesia Event [facility] Raúl Morrison MD [facility] [place] [address] [facility] Woodrow Gaspar MD [facility] [place] [address] [place] [address] Anesthesia Record Procedure Summary Procedure Name Responsible Anesthesia Start Anesthesia Stop Time Anesthesiologist Time @ DELIVERY Raúl Archer MD 07/10/10 1013 1 1306 (WRVU 16.13) (N/A Abdomen) Events Date Time Event Comment 07/10/2010 1013 Start 1306 Stop No medications on file. Agents No agents on file. Blood No blood administrations on file. Lines, Drains, and Airways Type Details Placement Removal PIV 07/10/10; 0900; 07/10/10 0900 by 07/11/10 1230 b y 07/11/10; 1230 Liliana Fitzpatrick RN Wynia, Molli e C, RN Urethral Catheter 07/10/10; 1134; 07/10/10 1134 by 07/11/10 0530 by indwelling double lumen Liliana Fitzpatrick RN O'Co nnell, Allyson catheter; 07/11/10; 0530 LMICHELLE documented in this encounter Social History Tobacco Use Types Packs/Day Years Used Date Former Smoker Cigarettes 2 Comments: quits during Alcohol Use Standard Drinks/Week Comments No 0 (1 standard drink = 0.6 oz pure alcoho l) Sex Assigned at Date Recorded Female 05/09/2020 7:27 PM EST documented as of this encounter OR Notes Anesthesia Postprocedure Evaluation - Woodrow Gaspar - 07/10/2010 3:26 PM EDT Patient: Evita Singleton Procedure(s) Performed: ?? DELIVERY - LATEX ALLERGY Patient location: [facility] Surgical Floor Post-op pain: Adequate analgesia Post-op nausea: no nausea or vomiting Last Vitals: Filed Vitals: 07/10/10 1500 BP: 134/64 Pulse: 100 Temp: Resp: 23 Post-op cardiovascular and respiratory status: is stable Level of consciousness: awake, alert and oriented Complications: no apparent complications and tolerated the procedure well Fluid Status: normal Anesthesia Preprocedure Evaluation - Woodrow Gaspar - 07/10/2010 9:18 AM EDT Anesthesia Evaluation No hx of anesthetic complications Airway Mallampati: II TM distance: >3 FB Neck ROM: full Dental Comment: Denies loose or chipped teeth Pulmonary (-) asthma, shortness of breath and recent URI Cardiovascular Exercise tolerance: (Climbs 3 flts of stairs at home daily without difficulty ) (+) hypertension well controlled, (-) past ID and angina Neuro/Psych GI/Hepatic/Renal (+) GERD (active reflux), Endo/Other (+) Type II DM using insulin well controlled, hypothyroidism, (-) Type I DM Abdominal (+) obesity (morbid obesity), Anesthesia Plan ASA 3 Spinal Anesthetic plan and risks discussed with patient and spouse. Use of blood products discussed with and consented by patient and spouse. documented in this encounter Plan of Treatment Not on filedocumented as of this encounter Visit Diagnoses Not on filedocumented in this encounter Care Teams Community Education Specialist Relationship Specialty Start Date End Date Denise Darnell MD PCP - General 01/27/10 08/29/11 [facility] [place] [address] documented as of this encounter
--- OUTSIDE RECORDS SUMMARY | 2021-12-17 15:09 | XMS_ITS | Encounter Summary ---
:1975 [place] [address] Care Team Providers Name Role Phone Denise Darnell MD Primary Care Provider Encounter Details Date Type Department Care Team Description 06/30/2010 Clinical Support Obstetrics and Gynec ology at [facility] [place] [address] Social History Tobacco Use Types Packs/Day [...] on filedocumented in this encounter Care Teams Physical Education Aide Relationship Specialty Start Date End Date Denise Darnell MD PCP - General 01/27/10 08/29/[address] [facility] [address] [place] [address] documented as of this encounter
--- OUTSIDE RECORDS SUMMARY | 2021-12-17 15:09 | XMS_ITS | Encounter Summary ---
:1975 Author Organization [facility] [place] [address] Care Team Providers Name Role Phone Denise Darnell MD Primary Care Provider Reason for Visit Reason Comments Right Shoulder Pain Encounter Details Date Type Department Care Team Description 09/03/2010 Office Visit Physical Therapy at [facility] Antonio Betancourt, PT [facility] PHYSICAL MEDICINE & [place] [address] Shoulder impingement [facility] Denise Darnell MD [facility] [place] [address] syndrome (Primary Dx) [place] [id number] Social History Tobacco Use Types Packs/Day Years Used Date Former Smoker Cigarettes 2 Quit: 09/30/19 10 Comments: quits during Alcohol Use Standard Drinks/Week Comments No 0 (1 standard drink = 0.6 oz pure alcoho l) Sex Assigned at Date Recorded Female 05/09/2020 7:27 PM EST documented as of this encounter Progress Notes Donna Betancourt PT - 09/03/2010 12:45 PM EDT General Physical Therapy Initial Evaluation Note: Outpatient Date of Exam/First Treatment: 09/03/2010 Date of onset: 1 to 1 1/2 years Referring Provider: Enrique Recinos Diagnosis: 1. Shoulder impingement syndrome (726.2AK) Medicare Certification period: n/a History of current problem: Evita Singleton is a 35 y.o. female referred to physical therapy for R shoulder impingement Medical/Surgical History: refer to electronic medical record Prior Level of Function: Normal use of R arm Functional Limitations: dressing, comb hair, lifting arm above head, stretch, jumping ember, jump rope. OBJECTIVE: Pain: at best: 3/10; at worst: 7/10 Located: anterior and lateral Describes pain as: dull and sharp Posture: Forward head , Protracted scapula and Rounded shoulders Palpation: Tenderness with palpation at supraspinatus and biceps tendons Special Tests: Lara-Guanaco Left negative Right positive, Neers Left negative Right positive, Speeds Left negative Right positive and Painful arc Left negative Right positive Further Objective Information: AROM limited to 90 deg FLX, 75 deg ABD. Able to get 10 degrees more with AAROM but in both, pain limits the ROM. Outcome measures: KATHLEEN/ASES: to be given in the future Assessment: These findings are consistent with R shoulder impingement syndrome for over one year with subsequentloss of ROM and strength. Physical therapy is indicated to: increase strength, increase flexibility and ROM. Also improve posture and shoulder biomechanics SHORT-TERM GOALS to be assessed every 2 weeks: Short-term goal #1: Pain level as measured on the VAS for pain improved by at least 1 level at best and at worst. Short-term goal #2: Functional level overall improved by at least 10% as measured by self-report. Short-term goal #3: Patient has demonstrated appropriate level of understanding of the prescribed technique, frequency and duration in order to correctly perform the current home exercise program. LONG-TERM GOALS to be assessed at discharge: Long-term goal #1: Patient will have no pain at best and 3/10 pain occasionally at worst as reported on the VAS for pain. Long-term goal #2: Patient will have at least 75% return of normal (baseline) function as measured by self-report on KATHLEEN/ASES shoulder score. Long-term goal #3: Patient will correctly and independently demonstrate a home exercise program prescribed by PT to maintain or improve current functional level. Interventions completed today: initial evaluation, patient education and home exercise program including AROM and stretching exercises Physical therapy plan: 1 x per week x 4 weeks, tapering to 1x every 2 weeks as indicated. Other Recommendations: No other consults recommended at this time The plan has been discussed with the patient and they have agreed with the planned treatment. Total Treatment time: 48 minutes Total Timed Code Treatment: 0 minutes DONNA BETANCOURT PT documented in this encounter Miscellaneous Notes Miscellaneous - Mitul, Bilingual School Psychologist - 12/10/2010 5:34 AM EDT documented in this encounter Plan of Treatment Not on filedocumented as of this encounter Visit Diagnoses Diagnosis Shoulder impingement syndrome - Primary Other affections of shoulder region, not elsewhere classified documented in this encounter Care Teams Cinema Operator Relationship Specialty Start Date End Date Denise Darnell MD PCP - General 01/27/10 08/29/[address] [facility] [address] [place] [address] documented as of this encounter
--- OUTSIDE RECORDS SUMMARY | 2021-12-17 15:09 | XMS_ITS | Encounter Summary ---
:1975 Author Organization [facility] [place] [address] Care Team Providers Name Role Phone Denise Darnell MD Primary Care Provider Reason for Visit Reason Onset Date Comments Advice Only 09/09/2010 Encounter Details Date Type Department Care Team Description 09/09/2010 Telephone Internal Medicine at [facility] Enrique Recinos MD Advice Only [facility] [address] [facility] [place] [address] GENERAL INTERNAL MEDICINE [phone] [place], [place] [address] (Wo rk) Social History Tobacco Use Types Packs/Day Years Used Date Former Smoker Cigarettes 2 Quit: 09/30/19 10 Comments: quits during Alcohol Use Standard Drinks/Week Comments No 0 (1 standard drink = 0.6 oz pure alcoho l) Sex Assigned at Date Recorded Female 05/09/2020 7:27 PM EST documented as of this encounter Miscellaneous Notes Telephone Encounter - Gracia Dietz RN - 09/09/2010 4:12 PM EDT Patient calls asking what medication would be safe for a migraine BARRIOS while breast-feeding. Will discuss with Dr. Recinos. documented in this encounter Plan of Treatment Not on filedocumented as of this encounter Visit Diagnoses Not on filedocumented in this encounter Care Teams Global Sales Executive Relationship Specialty Start Date End Date Denise Darnell MD PCP - General 01/27/10 08/29/11 [facility] GENERAL [place] [address] documented as of this encounter
--- OUTSIDE RECORDS SUMMARY | 2021-12-17 15:09 | XMS_ITS | Encounter Summary ---
:1975 Author Organization [facility] [place] [address] Care Team Providers Name Role Phone Denise Darnell MD Primary Care Provider Encounter Details Date Type Department Care Team Description 06/23/2010 Routine Obstetrics and Leticia Jett MD [place]: [id number] Gynecology at [facility] [address] OBST[facility] & [place] [address] GYNECOLOGY [phone] [place], [place] [address] (Wo rk) Social History Tobacco Use Types Packs/Day Years Used Date Former Smoker Cigarettes 2 Comments: quits during Alcohol Use Standard Drinks/Week Comments No 0 (1 standard drink = 0.6 oz pure alcoho l) Sex Assigned at Date Recorded Female 05/09/2020 7:27 PM EST documented as of this encounter Progress Notes Leticia Jett MD - 06/23/2010 5:20 PM EDT Seen for nonstress test documented in this encounter Plan of Treatment Not on filedocumented as of this encounter Visit Diagnoses Diagnosis Previous delivery, antepartum c ondition or complication Diabetes mellitus type 2 in obese Type II or unspecified type diabetes jose litus without mention of complication, not stated as uncontrolled documented in this encounter Care Teams Precision Farming Coordinator Relationship Specialty Start Date End Date Denise Darnell MD PCP - General 01/27/10 08/29/11 [facility] GENERAL [place] [address] documented as of this encounter
--- OUTSIDE RECORDS SUMMARY | 2021-12-17 15:09 | XMS_ITS | Encounter Summary ---
:1975 Author Organization [facility] [place] [address] Care Team Providers Name Role Phone Denise Darnell MD Primary Care Provider Encounter Details Date Type Department Care Team Description 07/07/2010 Routine Obstetrics and Leticia Jett MD GA: 38w4d Gynecology at [facility] [address] [facility] & [place] [address] GYNECOLOGY [phone] [place], [place] [address] (Wo rk) Social History Tobacco Use Types Packs/Day Years Used Date Former Smoker Cigarettes 2 Comments: quits during Alcohol Use Standard Drinks/Week Comments No 0 (1 standard drink = 0.6 oz pure alcoho l) Sex Assigned at Date Recorded Female 05/09/2020 7:27 PM EST documented as of this encounter Progress Notes Leticia Jett MD - 07/07/2010 9:33 AM EDT Denies bleeding, leaking of fluid, pain or contractions. FSBS are in target. VE: no presenting part in the pelvis. Cervix is hard to reach and is closed Bedside ultrasound: floating vertex I reviewed with her the very low likelihood of success of IOL given her unfavorable cervix and fetalstation as well as her obesity. I recommended that she be delivered by a repeat section rather than an IOL. After consideration she agreed with the plan. I will switch her IOL to a RCS for the 6th. NPO and CS prep reviewed documented in this encounter Plan of Treatment Not on filedocumented as of this encounter Visit Diagnoses Diagnosis Hypothyroidism Unspecified hypothyroidism Previous delivery, antepartum c ondition or complication failure, antepartum Failure of , antepartum conditi on or complication documented in this encounter Care Teams Switchboard Operator Relationship Specialty Start Date End Date Denise Darnell MD PCP - General 01/27/10 08/29/11 [facility] GENER[place] [address] documented as of this encounter
--- OUTSIDE RECORDS SUMMARY | 2021-12-17 15:09 | XMS_ITS | Encounter Summary ---
:1975 Author Organization [place] [address] Care Team Providers Name Role Phone Denise Darnell MD Primary Care Provider Reason for Visit Reason Comments Routine Visit nst Encounter Details Date Type Department Care Team Description 07/07/2010 Procedure visit Obstetrics and Gynec ology at [facility] [place] [address] Social History Tobacco Use Types Packs/Day [...] on filedocumented in this encounter Care Teams Power Saw Operator Relationship Specialty Start Date End Date Denise Darnell MD PCP - General 01/27/10 08/29/11 [facility] GENERAL [place] [address] documented as of this encounter
--- OUTSIDE RECORDS SUMMARY | 2021-12-17 15:09 | XMS_ITS | Encounter Summary ---
:1975 Author Organization [facility] [place] [address] Care Team Providers Name Role Phone Denise Darnell MD Primary Care Provider Reason for Visit Reason Comments Care Encounter Details Date Type Department Care Team Description 07/30/2010 Visit Obstetrics and Deni Newsome Postp artum care and Gynecology at [facility] MD examination (Primary [facility] Dx) [facility] [address] [place] OBSTETRICS & [phone] GYNECOLOGY [phone] [place], [place] [address] Social History Tobacco Use Types [...] Sign Reading Time Taken Comments Blood Pressure 138/78 07/30/2010 3:09 PM EDT Pulse - - Temperature - - Respiratory Rate - - Oxygen Saturation - - Inhaled Oxygen Concentration - - Weight 136.9 kg (301 lb 11.2 oz) 07/30/2010 3:09 PM EDT Height - - Body Mass Index 44.55 06/03/2010 3:41 PM EDT documented in this encounter Progress Notes Deni Newsome MD - 07/30/2010 3:28 PM EDT Subjective: Maternal Medicine Evaluation: Evita Singleton is a 35 y.o. female who presents for evaluation of status 3 weeks . Her delivery was a repeat delivery. problems: Patient Active Problem List Diagnoses Code ??? Depression 311L ??? GERD (gastroesophageal reflux disease) 530.81S ??? Hyperlipidemia 272.4S ??? Hypothyroidism 244.9AP ??? Obesity 278.00M ??? V22.2C ??? Diabetes mellitus type 2 in obese 250.00EP ??? AMA (advanced maternal age) multigravida 35+ 659.63F ??? Previous delivery, antepartum condition or complication 654.23 ??? Hypertension 401.9AJ ??? failure, antepartum 676.43D Review of Systems Problems: None Symptoms of depression : None Depression score: 816 Lochia: Stopped and restarted Menses: no Coitus: None control: Does not currently have a partner Objective: BP 138/78 Wt 136.85 kg (301 lb 11.2 oz) LMP 10/21/2009 ? Yes General: alert, appears stated age and cooperative Breast No masses palpated Abdominal incision healing well Assessment: Doing well Plan: Return in 3-4 weeks for final evaluation, or prn documented in this encounter Miscellaneous Notes Miscellaneous - Juany Bauman - 08/06/2010 8:47 AM EDT documented in this encounter Plan of Treatment Not on filedocumented as of this encounter Visit Diagnoses Diagnosis care and examination - Primar y Routine follow-up documented in this encounter Care Teams Oven Unloader Relationship Specialty Start Date End Date Denise Darnell MD PCP - General 01/27/10 08/29/11 [facility] GENERAL [place] [address] documented as of this encounter
--- OUTSIDE RECORDS SUMMARY | 2021-12-17 15:09 | XMS_ITS | Encounter Summary ---
:1975 Author Organization [facility] [place] [address] Care Team Providers Name Role Phone Denise Darnell MD Primary Care Provider Reason for Visit Reason Comments Non-stress Test Encounter Details Date Type Department Care Team Description 06/30/2010 Office Visit Obstetrics and CLINIC, DR YG rojas type 2 in obese; Gynecology at [facility] ; [facility] Hypothyro idism; Drive Obesity; [place] [address] AMA (advanced maternal age) multigravida 35+; [phone] Depression Social History Tobacco Use Types Packs/Day Years Used Date Former Smoker Cigarettes 2 Comments: quits during Alcohol Use Standard Drinks/Week Comments No 0 (1 standard drink = 0.6 oz pure alcoho l) Sex Assigned at Date Recorded Female 05/09/2020 7:27 PM EST documented as of this encounter Last Filed Vital Signs Vital Sign Reading Time Taken Comments Blood Pressure 128/82 06/30/2010 8:01 AM EDT Pulse - - Temperature - - Respiratory Rate - - Oxygen Saturation - - Inhaled Oxygen Concentration - - Weight 151.7 kg (334 lb 6.4 oz) 06/30/2010 8:01 AM EDT Height - - Body Mass Index 49.38 06/03/2010 3:41 PM EDT documented in this encounter Progress Notes Rosa Diggs RN - 06/30/2010 10:55 AM EDT Evita here for NST, now @ 37+4 weeks, IDD. She verbally states that her glucose numbers are good but did not bring them with her. I have asked her to be sure to bring them on Tuesday for her prenatalvisit. NST reviewed by Dr. Brittany Reyna. Evita had 2 hour NST due to variable deceleration to 90 x 30 seconds with good recovery, non repetitive. Otherwise reactive, see NST documentation. Kick Count sheet given to Evita and instructions reviewed with stated understanding. She willdo this daily unless she comes for NST. Plan: return on Tuesday for appt and NST. documented in this encounter Plan of Treatment Not on filedocumented as of this encounter Visit Diagnoses Diagnosis Diabetes mellitus type 2 in obese Type II or unspecified type diabetes jose litus without mention of complication, not stated as uncontrolled state, incidental Hypothyroidism Unspecified hypothyroidism Obesity Obesity, unspecified AMA (advanced maternal age) multigravida 35+ Elderly multigravida with antepartum con dition or complication Depression Depressive disorder, not elsewhere class ified documented in this encounter Care Teams Embryology Professor Relationship Specialty Start Date End Date Denise Darnell MD PCP - General 01/27/10 08/29/11 [facility] [address] [facility] INTERNAL MEDICINE [place], [place] [id number] documented as of this encounter
--- OUTSIDE RECORDS SUMMARY | 2021-12-17 15:09 | XMS_ITS | Encounter Summary ---
:1975 Author Organization [facility] [place] [address] Care Team Providers Name Role Phone Denise Darnell MD Primary Care Provider Reason for Referral Consultation (Routine) - Complete - Patient Seen (External Appt Consult Notes Rcv'd) Specialty Diagnoses / Procedures Referred By Contact Refer red To Contact Diagnoses Obesity Leticia Jett MD Schauss, Jennifer A, LD [facility] D R OBSTETRICS & [place] [address] Referral ID Status Reason Start Expiration Visits Visits Date Date Requested Authorized [id number] Complete - Consult 06/26/2010 12/23/2010 1 1 Patient Seen Only (External Appt Consult Notes Rcv'd) Reason for Visit Reason Comments Routine Visit NST Encounter Details Date Type Department Care Team Description 06/26/2010 Routine Obstetrics and Leticia Jett MD GA: 37w0d Gynecology at [facility] [address] [place] & [place] [address] GYNECOLOGY [phone] [place], [place] [address] (Wo rk) Social History Tobacco Use Types Packs/Day Years Used Date Former Smoker Cigarettes 2 Comments: quits during Alcohol Use Standard Drinks/Week Comments No 0 (1 standard drink = 0.6 oz pure alcoho l) Sex Assigned at Date Recorded Female 05/09/2020 7:27 PM EST documented as of this encounter Last Filed Vital Signs Vital Sign Reading Time Taken Comments Blood Pressure 140/76 06/26/2010 8:01 AM EDT Pulse - - Temperature - - Respiratory Rate - - Oxygen Saturation - - Inhaled Oxygen Concentration - - Weight 151 kg (333 lb) 06/26/2010 8:01 AM EDT Height - - Body Mass Index 49.18 06/03/2010 3:41 PM EDT documented in this encounter Progress Notes Leticia Jett MD - 06/26/2010 8:46 AM EDT Tired. Log: Few high fasting and after breakfast Dose: NPH 15 AM and 17 PM Last US transverse like and macrosomia Has US in one week Will continue twice weekly visits. May need increased AM NPH LETICIA JETT documented in this encounter Plan of Treatment Scheduled Referrals Name Type Priority Associated Order Schedule Diagnoses Ambulatory referral Outpatient Referral Routine Obesity O rdered: to Nutrition 06/26/2010 Services documented as of this encounter Procedures Procedure Name Priority Date/Time Associated Diagnosis Comme nts GROUP B STREP Routine 06/26/2010 8:46 AM Results for this CULTURE SCREEN EDT procedure are in the results section. POCT URINE DIPSTICK Routine 06/26/2010 Results for this procedure are i n the results section. documented in this encounter Results Group B Strep Culture Screen (06/26/2010 8:46 AM EDT) Component Value Ref Test Analysis Performed At [facility] Method Time Signature Group B CERNER Streptococcus ? Patient Name: Mary SINGLETON CARLOS MANUEL A ? Ordered By: LETICIA JETT [facility] Culture ? MR#: [id number] ?LOC: ??5L ? /Sex: ??1975 (35 years), ? Female ? PROCEDURE: Group B Streptococcus Culture ?SOURCE: Vag/Rectal ? COLLECTED: 06/26/2010 08:46 ? STARTED: 06/26/2010 14:25 ? FINAL REPORT ? Final Report ? Verified:06/29/2010 10:20 ? No Group B Streptococci isolated ? PRELIMINARY REPORT ? Preliminary Report ? Verified:06/27/2010 08:34 ? Culture in progress ? Specimen (Source) Anatomical Collection Method Collection Time Re ceived Time Location / / Volume Laterality Pooled specimen 06/26/2010 8:46 1 2:25 from vaginal AM EDT PM EDT introitus and rectal swab (specimen) Leticia Jett MD MICROBIOLOGY - GENERAL ORDER BRANDYN Performing Organization Address City/State/[place] [address] [facility] POCT urinalysis dipstick (06/26/2010) P athologist Signature POC Sp [place] 1.002 - 1.030 POC pH, UA 5.0 - 8.5 POC Leuk, UA Negative - Negative POC Nitrite, Negative - UA Negative POC Protein, neg Negative - UA Negative mg/dL POC Glucose, neg Normal - UA Normal mg/dL POC Ketone, UA Negative - Negative POC Urobil, UA 0.2 - 1.0 mg/dL POC Bili, UA Negative - Negative POC Blood, UA Negative - Negative trav/uL Specimen (Source) Anatomical Location Collection Method / Collectio n Time Received Time / Laterality Volume 06/26/2010 Leticia Jett MD POINT OF CARE TEST ORDERABLE S documented in this encounter Visit Diagnoses Diagnosis Obesity Obesity, unspecified state, incidental Diabetes mellitus type 2 in obese Type II or unspecified type diabetes jose litus without mention of complication, not stated as uncontrolled failure, antepartum Failure of , antepartum conditi on or complication documented in this encounter Care Teams Paper Roll Machine Operator Relationship Specialty Start Date End Date Denise Darnell MD PCP - General 01/27/10 08/29/[address] [facility] [address] [place] [address] documented as of this encounter
--- OUTSIDE RECORDS SUMMARY | 2021-12-17 15:09 | XMS_ITS | Encounter Summary ---
:1975 Author Organization [facility] [place] [address] Care Team Providers Name Role Phone Denise Darnell MD Primary Care Provider Encounter Details Date Type Department Care Team Description 05/17/2011 Orders Only Orthopaedics at [facility] Tim [place] [address] [address] [phone] ORTHOPAEDIC SURG [place], [place] [address] (Wo rk) Social History Tobacco Use Types Packs/Day Years Used Date Former Smoker Cigarettes 2 Quit: 09/30/19 10 Smokeless Tobacco: Never Used Comments: quits during Alcohol Use Standard Drinks/Week Comments No 0 (1 standard drink = 0.6 oz pure alcoho l) Sex Assigned at Date Recorded Female 05/09/2020 7:27 PM EST documented as of this encounter Plan of Treatment Not on filedocumented as of this encounter Results XR JOINT TEAM ALIGNMENT AP LAT SCHUSS SKYLINE (05/24/2011 7:29 AM EDT) Anatomical Region Laterality Modality N/A Radiographic Imaging Specimen (Source) Anatomical Collection Method Collection Time Re ceived Time Location / / Volume Laterality 05/24/2011 7:29 AM EDT Impressions 05/24/2011 12:01 PM EDT IMPRESSION: Narrowed bilateral medial joint spaces m ore prominent on the right than the left representing osteoarthropathy. Narrative 05/24/2011 12:01 PM EDT STANDING KNEE ALIGNMENT, VIEWS OF BOTH KNEES AND VIEW OF THE RIGHT KNEE: EXAM #1, STANDING ALIGNMENT: HISTORY: ??Right knee pain. ??Rule out o steoarthropathy. TECHNIQUE: Separate images of the pelvis, knees and feet were acquired in the AP projection with the patient standing. ?? In addition to routine views of the knee, these images were stitched togethe r to form a composite image of the pelvis and legs allowing for evaluation of lower extremity alignment in the weight bearing position. FINDINGS: ??Bilateral weight-bearing axe s are medially shifted slightly more pronounced on the right than the left. ? ? EXAM #2, KNEE EXAM: FINDINGS: Osteoarthropathy of both knees is characterized by narrowed medial joint spaces more pronounced on the righ t than the left. ??The proximal tibia is slightly laterally shifted. ??No large r ight knee effusion. Procedure Note Socorro Barrera MD - 05/24/2011Formatt ing of this note might be different from the original. STANDING KNEE ALIGNMENT, VIEWS OF BOTH K NEES AND VIEW OF THE RIGHT KNEE: EXAM #1, STANDING ALIGNMENT: HISTORY: Right knee pain. Rule out osteo arthropathy. TECHNIQUE: Separate images of the pelvis, knees and feet were acquired in the AP projection with the patient standing. In addition to routine views of the knee, these images were stitched togethe r to form a composite image of the pelvis and legs allowing for evaluation of lower extremity alignment in the weight bearing position. FINDINGS: Bilateral weight-bearing axes are medially shifted slightly more pronounced on the right than the left. EXAM #2, KNEE EXAM: FINDINGS: Osteoarthropathy of both knees is characterized by narrowed medial joint spaces more pronounced on the righ t than the left. The proximal tibia is slightly laterally shifted. No large rig ht knee effusion. IMPRESSION IMPRESSION: Narrowed bilateral medial joint spaces m ore prominent on the right than the left representing osteoarthropathy. Tim Gonzales MD IMG DX ORDERABLES documented in this encounter Visit Diagnoses Diagnosis Right knee pain Pain in joint, lower leg Right knee pain Pain in joint, lower leg documented in this encounter Care Teams Veneer Drier Tailer Relationship Specialty Start Date End Date Denise Darnell MD PCP - General 01/27/10 08/29/11 [facility] [place] [address] documented as of this encounter
--- OUTSIDE RECORDS SUMMARY | 2021-12-17 15:09 | XMS_ITS | Encounter Summary ---
:1975 Author Organization [facility] [place] [address] Care Team Providers Name Role Phone Denise Darnell MD Primary Care Provider Reason for Visit Reason Comments Weight Management Encounter Details Date Type Department Care Team Description 12/21/2010 Follow-Up Internal Medicine at [facility] roman Javier MD Health maintenance [facility] examination (Primary [facility] DR Moise) [facility] [place] [address] MEDICINE [phone] [place] [address] (Wo rk) Social History Tobacco Use Types [...] Sign Reading Time Taken Comments Blood Pressure 143/70 12/21/2010 1:38 PM EDT Pulse 71 12/21/2010 1:38 PM EDT Temperature 36.4 ??C (97.6 ??F) 12/21/2010 1:38 PM EDT Respiratory Rate 18 12/21/2010 1:38 PM EDT Oxygen Saturation - - Inhaled Oxygen Concentration - - Weight 142 kg (313 lb) 12/21/2010 1:38 PM EDT Height 172.7 cm (5' 8) 12/21/2010 1:38 PM EDT Body Mass Index 47.59 12/21/2010 1:38 PM EDT documented in this encounter Progress Notes Enrique Recinos MD - 12/21/2010 2:06 PM EDT Subjective: Patient ID: Evita Singleton is a 35 y.o. female. HPI 35 F presents for f/u obesity, T2DM, HTN and hypothyroidism. Pt was last seen 3 months ago and triedlife style modifications for weight loss. She did not f/u with counting calories however she startedherbalife. Labs: Last TSH nl BP well controlled Weight unfortunatly despite life style modifications stable at 313 lbs Otherwise no new issues on 10 point ROS. Pt would like to get a prescriptions for the [facility] for weight loss. Review of Systems See phi Objective: Physical Exam BP 143/70 Pulse 71 Temp(Src) 36.4 ??C (97.6 ??F) (Oral) Resp 18 Ht 172.7 cm (5' 8) Wt 141.976 kg (313 lb) BMI 47.59 kg/m2 LMP 10/21/2009 BP on recheck 125/80 NAD Assessment and Plan: 35 F, hypothyroidism replaced successfully. BP ok at goal without meds. # DM Given HgbA1c of 5.4 in setting of life style modifications will hold metformin at that point and follow up in 3 months. - f/u HgbA1c and BMP # obesity [facility] modifications [facility] [place] [facility] # pt received flu shot today # f/u in 3 months No problem-specific visit notes found for this encounter. Ezra Kraus MD - 12/21/2010 2:04 PM EDT The case was discussed at the time of the visit or immediately after the visit. The assessment and plan were formulated in discussion with me and I agree with them as documented. I have reviewed the history, physical exam, assessment and plan with the resident. Major issues discussed today: 35- FU for: DM/obesity- 5.3 on metf 500 BID. LDL~ up. Wt stable. BP- ok. Hypothyroid- on replacement. TSH 3 2-3 mo ago. Plan: Wt loss, ? Need for metformin. documented in this encounter Plan of Treatment Not on filedocumented as of this encounter Visit Diagnoses Diagnosis Health maintenance examination - Primary Unspecified general medical examination documented in this encounter Care Teams Monkey Keeper Relationship Specialty Start Date End Date Denise Darnell MD PCP - General 01/27/10 08/29/11 [facility] GENERAL INTER[place] [address] documented as of this encounter
--- OUTSIDE RECORDS SUMMARY | 2021-12-17 15:09 | XMS_ITS | Encounter Summary ---
:1975 Author Organization [facility] [place] [address] Care Team Providers Name Role Phone Denise Darnell MD Primary Care Provider Encounter Details Date Type Department Care Team Description 07/29/2010 Hospital Encounter Birthing Ihsan Uriostegui MD Assessment Unit [facility] [address] OBSTETRICS & [place] [id number] GYNECOLOGY [phone] [place] [address] (Wo rk) Social History Tobacco Use Types Packs/Day Years Used Date Former Smoker Cigarettes 2 Comments: quits during Alcohol Use Standard Drinks/Week Comments No 0 (1 standard drink = 0.6 oz pure alcoho l) Sex Assigned at Date Recorded Female 05/09/2020 7:27 PM EST documented as of this encounter Medications at Time of Discharge Medication Sig Dispensed Refills Start Date End Date levothyroxine (SYNTHROID) Take 1 tablet by 30 tablet 5 11/201007/16/2011 125 mcg tablet mouth daily. metFORMIN (GLUCOPHAGE) 500 Take 1 tablet by 30 tablet 12 11/201012/21/2010 mg tablet mouth daily. Pantoprazole (PROTONIX) 40 40 mg, PO, Once 0 05/0607/16/2011 mg SuDR daily documented as of this encounter Plan of Treatment Not on filedocumented as of this encounter Visit Diagnoses Not on filedocumented in this encounter Care Teams Shipmaster Relationship Specialty Start Date End Date Denise Darnell MD PCP - General 01/27/10 08/29/11 [facility] GENERAL [place] [address] documented as of this encounter
--- OUTSIDE RECORDS SUMMARY | 2021-12-17 15:09 | XMS_ITS | Encounter Summary ---
:1975 Author Organization [place] [address] Care Team Providers Name Role Phone Denise Darnell MD Primary Care Provider Encounter Details Date Type Department Care Team Description 03/24/2011 Hospital Encounter Laboratory Kentrell Guerra MD Diabetes [facility] [place] [address] ENDOCRINOLOGY DEPT. [phone] [place] [id number] (Wo rk) Social History Tobacco Use Types [...] 1 tablet by 0 tablet mouth daily. FERROUS GLUCONATE ORAL Take 25 mg by mouth 0 05/24/2011 daily. levothyroxine (SYNTHROID) Take 1 tablet by 30 tablet 5 11/201007/16/2011 125 mcg tablet mouth daily. Pantoprazole (PROTONIX) 40 40 mg, PO, Once 0 05/0607/16/2011 mg SuDR daily documented as of this encounter Plan of Treatment Not on filedocumented as of this encounter Procedures Procedure Name Priority Date/Time Associated Comments Diagnosis U ALBUMIN/CRE RATIO Routine 03/24/2011 2:54 PM Diabetes Re sults for this EST procedure are i n the results section. CREATININE, URINE, Routine 03/24/2011 2:54 PM Diabetes Res ults for this RANDOM EST procedure are i n the results section. VITAMIN D, 25-HYDROXY Routine 03/24/2011 2:52 PM Diabetes Results for this EST procedure are i n the results section. HEMOGLOBIN A1C Routine 03/24/2011 2:52 PM Diabetes Results for this EST procedure are i n the results section. LIPID PANEL (REFLEX Routine 03/24/2011 2:52 PM Diabetes Re sults for this DIRECT LDL) EST procedure are i n the results section. COMPREHENSIVE Routine 03/24/2011 2:52 PM Diabetes Results for this METABOLIC PANEL EST procedure ar e in (NON-FASTING) the results section. documented in this encounter Results Creatinine, urine, random (03/24/2011 2:54 PM EST) P athologist Signature U Creatinine 287 mg/dL CERNER MILLENNIUM Specimen Anatomical Collection Method Collection Time Receive d Time (Source) Location / / Volume Laterality Urine specimen 03/24/2011 2:54 PM 012 3:00 (specimen) EST PM EST Kentrell Guerra MD URINE ORDERABLES Performing Organization Address City/State/[place] [address] CERNER MILLENNIUM Microalbumin, urine, random (03/24/2011 2:54 PM EST) P athologist Signature U Creatinine 287 mg/dL CERNER MILLENNIUM U Albumin Conc, 15.4 mg/L CERNER Random MILLENNIUM Alb/Cr Ratio, 5 mcg/mg Cr CERNER Random MILLENNIUM Comment: Reference Range* Random collection (mcg/mg creatinine) Normal ?<30 Microalbuminuria ?? 30 - 300 Clinical Albuminuria ?? >300 *[place] [employer]. Diabetic Nephropathy. Diabetes Care 1997;(Suppl 1):S24-S27 Exercise within 24 hour, infection, fe buddy, CHF, marked hyperglycemia, and marked hypertension may elevate urinary albumin excretion over baseline values. Specimen Anatomical Collection Method Collection Time Receive d Time (Source) Location / / Volume Laterality Urine specimen 03/24/2011 2:54 PM 01/18/2 012 3:00 (specimen) EST PM EST Kentrell Guerra MD URINE ORDERABLES Performing Organization Address City/State/ZIP Code [place] [address] CEREKTA BEARDIUM (ABNORMAL) Lipid panel (fasting) (03/24/2011 2:52 PM EST) P athologist Signature Chol, Total 177 <=199 mg/dL CEREKTA ELIEBOSSMANIUM Comment: Recommendations of the NCEP Adult Treatm ent Panel for the following risk cutoff thresholds for the [place] populatio n: Desirable: <200 mg/dL Borderline High: 200-239 mg/dL High: > or = 240 mg/dL Triglycerides 187 (H) <=149 mg/dL SOCRATES MILLBOSSMAN M Comment: Reference Range: Normal triglycerides: ??<150 mg/dL Borderline high: ??150-199 mg/dL High: ??200-499 mg/dL Very high: ??>fq=583 mg/dL KEITH 2001; 285(19):7263-1155 HDL 36 (L) >=40 mg/dL SOCRATES ELIEBOSSMANIUM Comment: Reference range: ??Low HDL: ?? < 40 mg/dL ??Normal: ?40-60 mg/dL ??Desirable: > 60 mg/dL KEITH 2001; 285(19):2041-8817 LDL Cholesterol 104 (H) <=99 mg/dL SOCRATES ARBOLEDA Comment: Reference range: ?? Optimal: ?<100 mg/dL ?? Near Optimal/Above Optimal: ?? 100-1 29 mg/dL ?? Borderline high: ?130-159 mg/dL ?? High: ? 160-189 mg/dL ?? Very high: ?>am=388 mg/dL KEITH 2001: 285(19):0211-5587 Chol/HDL Ratio 4.9 ratio SOCRATES ELIEBOSSMANI UM Comment: A Cholesterol to HDL ratio below 4:1 is desirable. ??Studies suggest that increased CAD risk occurs at ratios abov e 5 for females and above 6 for men. ? [place] [employer] Association ??(htt p://www.americanheart.org) ? [place]ia Int Med, 1994; 121:641 ? AM J Med, 1998; 105(1A):48S Specimen Anatomical Collection Method Collection Time Receive d Time (Source) Location / / Volume Laterality Blood specimen 03/24/2011 2:52 PM 012 2:57 (specimen) EST PM EST Kentrell Guerra MD CHEMISTRY ORDERABLES Performing Organization Address [facility] Phon e Number [address] CERNER MILLENNIUM (ABNORMAL) Vitamin D 25 hydroxy (03/24/2011 2:52 PM EST) athologist Signature 25-Hydroxy D2 <4.0 ng/mL [facility] Comment: Test Performed by: [place] [address] Dumpster Operator: Aliya Rubi, Ph. D. 25-Hydroxy D3 16 ng/mL [facility] Comment: Test Performed by: [place] [address] Dumpster Operator: Aliya Rubi, Ph. D. 25-OH Vit D Total 16 (L) ng/mL [facility] [employer] NNIUM Comment: Interpretation: 10-24 (mild to moderate deficiency) -- REFERENCE VALUE -- 25-HYDROXY D TOTAL (D2+D3) Optimum levels in the normal population are 25-80 Test Performed by: [place] [address] Dumpster Operator: Aliya Rubi, Ph. D. Specimen Anatomical Collection Method Collection Time Receive d Time (Source) Location / / Volume Laterality Blood specimen 03/24/2011 2:52 PM 012 4:36 (specimen) EST PM EST Kentrell Guerra MD CHEMISTRY ORDERABLES Performing Organization Address [facility] Phon e Number [address] CERNER PlexPressENNIUM Hemoglobin A1c (03/24/2011 2:52 PM EST) athologist Signature Hemoglobin A1C 5.5 4.3 - 6.1 [facility] Est Avg Gluc 111 mg/dL [facility] Comment: eAG equivalents for HbA1c percentages: HbA1c(%) ?eAG(mg/dL) 6.0 ?126 6.5 ?140 7.0 ?154 7.5 ?169 8.0 ?183 8.5 ?197 9.0 ?212 9.5 ?226 10.0 ? 240 Limitations: The eAG calculation has not been validated on women, individuals below 18 years old and above 70 years old, and individuals with hemoglobinopathies. Additional resources are available on [facility] ADA website: ??http://professional.diabetes.org/gluc osecalculator.aspx Reference: Angelo MULLEN, Ariel J, Bill R, et al. ??Tr anslating the A1C assay into estimated average glucose values. ??Diabetes Care 2008:31(8):6026-9466. Specimen Anatomical Collection Method Collection Time Receive d Time (Source) Location / / Volume Laterality Blood specimen 03/24/2011 2:52 PM 012 2:57 (specimen) EST PM EST Kentrell Guerra MD CHEMISTRY ORDERABLES Performing Organization Address City/State/[place] [address] [facility] Comprehensive metabolic panel (03/24/2011 2:52 PM EST) athologist Signature Glucose Lvl 94 60 - 199 CERNER mg/dL MILLENNIUM Comment: Diabetes: >=200 mg/dL plus symp toms BUN 14 8 - 18 mg/dL CERNER MILLENNIUM Creatinine 0.84 0.70 - 1.20 mg/dL CERNER MILL ENNIUM Sodium 139 135 - 145 mmol/L CERNER SARAN NIUM Potassium 3.8 3.5 - 5.0 mmol/L CERNER SARAN NIUM Comment: Please note: ??Patients with WBC >100,00 0 may have falsely elevated Potassium levels. ??For accurate Potassium quantif ication in these patients send serum separator tube (gold top) for subsequent determinations. ??Contact the Clinical Chemistry Laboratory if there are any qu estions. Chloride 105 98 - 107 mmol/L CERNER MILLENN IUM CO2 24 22 - 31 mmol/L CERNER MILLENNI UM Anion Gap 10 5 - 15 mmol/L CERNER MILLENNIU M Calcium 9.0 8.5 - 10.5 mg/dL CERNER SARAN NIUM Total Protein 7.4 6.4 - 8.3 gm/dL CERNER MIL LENNIUM Albumin 4.4 3.2 - 5.2 gm/dL CERNER MILLENN IUM AST 21 0 - 30 unit/L CERNER MILLENNIU M ALT 22 0 - 30 unit/L CERNER MILLENNIU M Alk Phos 64 40 - 104 unit/L CERNER MILLENN IUM Total Bilirubin 0.4 0.2 - 1.3 mg/dL CERNER M ILLENNIUM [...] multiply eGFR by 1.2. The MDRD equation has not been validated for pedi atric patients and is only valid for patients with age >= 18 years. At present, NKDEP does NOT recommend usi [...] kidney disease. References: http://nkdep.nih.gov/resources/NKDEP_Sug gestn4Labs_0606_508.pdf http://www.kidney.org/professionals/kls/ pdf/faq_gfr.pdf Specimen Anatomical Collection Method Collection Time Receive d Time (Source) Location / / Volume Laterality Blood specimen 03/24/2011 2:52 PM 012 2:57 (specimen) EST PM EST Kentrell Guerra MD CHEMISTRY ORDERABLES Performing Organization Address City/State/[place] [address] [facility] documented in this encounter Visit Diagnoses Diagnosis Diabetes Type II or unspecified type diabetes jose litus without mention of complication, not stated as uncontrolled documented in this encounter Care Teams Senior Training Specialist Relationship Specialty Start Date End Date Denise Darnell MD PCP - General 01/27/10 08/29/[address] [facility] [place] [address] documented as of this encounter
--- OUTSIDE RECORDS SUMMARY | 2021-12-17 15:09 | XMS_ITS | Encounter Summary ---
:1975 Author Organization [facility] [place] [address] Care Team Providers Name Role Phone Denise Darnell MD Primary Care Provider Reason for Visit Reason Comments Wound Check Encounter Details Date Type Department Care Team Description 07/17/2010 Office Visit Obstetrics and Vimal Beverly, Routine p [place] [facility] (Primary Dx) [place] [address] Social History Tobacco Use Types Packs/Day Years Used Date Former Smoker Cigarettes 2 Comments: quits during Alcohol Use Standard Drinks/Week Comments No 0 (1 standard drink = 0.6 oz pure alcoho l) Sex Assigned at Date Recorded Female 05/09/2020 7:27 PM EST documented as of this encounter Progress Notes Vimal Beverly, RN - 07/17/2010 4:38 PM EDT Patient seen today in follow-up to incision check from earlier this week. Today the bruised area above the incision looks greatly improved. No redness noted just resolving hematoma. Patient complained of odor. Incision clean and intact but appears to have yeast under pannus. Advised use of hydrocortisone cream and antifungal cream to be applied to affected areas. Patient states she can afford this OTC treatment. Patient also wished consult with we attempted to page but they did not return phone call in clinic but patient has appointment in pedi clinic and will attempt to reach them again. Patient reports glucose values are in target range with Metformin. Mood is good, she is moving back to own apartment on Tuesday. documented in this encounter Plan of Treatment Not on filedocumented as of this encounter Visit Diagnoses Diagnosis Routine follow-up - Primary documented in this encounter Care Teams Data Transcriber Relationship Specialty Start Date End Date Denise Darnell MD PCP - General 01/27/10 08/29/11 [facility] [place] [address] documented as of this encounter
--- OUTSIDE RECORDS SUMMARY | 2021-12-17 15:09 | XMS_ITS | Encounter Summary ---
:1975 [place] [address] Care Team Providers Name Role Phone Denise Barreto MD Primary Care Provider Encounter Details Date Type Department Care Team Description 07/10/2010 [facility] Brittany Berman, @ DELIVERY [facility] ([facility]VU 16.13) [facility] [address] [facility] & [place] [address] GYNECOLOGY [phone] [place] [id number] (Wo rk) Social History Tobacco Use Types Packs/Day Years Used Date Former Smoker Cigarettes 2 Comments: quits during Alcohol Use Standard Drinks/Week Comments No 0 (1 standard drink = 0.6 oz pure alcoho l) Sex Assigned at Date Recorded Female 05/09/2020 7:27 PM EST documented as of this encounter Last Filed Vital Signs Vital Sign Reading Time Taken Comments Blood Pressure 123/69 07/13/2010 8:17 AM EDT Pulse 68 07/13/2010 8:17 AM EDT Temperature 36.5 ??C (97.7 ??F) 07/13/2010 8:17 AM EDT Respiratory Rate 18 07/13/2010 8:17 AM EDT Oxygen Saturation 100% 07/13/2010 8:17 AM EDT Inhaled Oxygen Concentration - - Weight 135.5 kg (298 lb 11.6 oz) 07/12/2010 6:30 AM EDT Height - - Body Mass Index 44.11 06/03/2010 3:41 PM EDT documented in this encounter Discharge Instructions Discharge Que Hanson - 07/13/2010 8:[address] [facility] Section: What to Expect at Home Your Recovery A section, or , is surgery to deliver your baby through a cut, called an incision,that the doctor makes in your lower belly and uterus. You may have some pain in your lower belly and need pain medicine for 1 to 2 weeks. You can expect some vaginal bleeding for several weeks. You will probably need about 6 weeks to fully recover. It is important to take it easy while the incision is healing. Avoid heavy lifting, strenuous activities, or exercises that strain the belly muscles while you are recovering. Ask a family member or friend for help with housework, cooking, and shopping. This care sheet gives you a general idea about how long it will take for you to recover. But each person recovers at a different pace. Follow the steps below to get better as quickly as possible. How can you care for yourself at home? Activity Rest when you feel tired. Getting enough sleep will help you recover. Try to walk each day. Start by walking a little more than you did the day before. Bit by bit, increase the amount you walk. Walking boosts blood flow and helps prevent pneumonia, constipation, and blood clots. Avoid strenuous activities, such as bicycle riding, jogging, weightlifting, and aerobic exercise, for 6 weeks or until your doctor says it is okay. Until your doctor says it is okay, do not lift anything heavier than your baby. Do not do sit-ups or other exercises that strain the belly muscles for 6 weeks or until your doctor says it is okay. Hold a pillow over your incision when you cough or take deep breaths. This will support your belly and decrease your pain. You may shower as usual. Pat the incision dry when you are done. You will have some vaginal bleeding. Wear sanitary pads. Do not douche or use tampons until your doctor says it is okay. Ask your doctor when you can drive again. You will probably need to take at least 6 weeks off work. It depends on the type of work you do and how you feel. Ask your doctor when it is okay for you to have sex. Diet You can eat your normal diet. If your stomach is upset, try bland, low-fat foods like plain rice, broiled chicken, toast, and yogurt. Drink plenty of fluids (unless your doctor tells you not to). You may notice that your bowel movements are not regular right after your surgery. This is common. Try to avoid constipation and straining with bowel movements. You may want to take a fiber supplement every day. If you have not had a bowel movement after a couple of days, ask your doctor about taking a mild laxative. If you are breast-feeding, do not drink any alcohol. Medicines Take pain medicines exactly as directed. If the doctor gave you a prescription medicine for pain, take it as prescribed. If you are not taking a prescription pain medicine, ask your doctor if you can take an uang-vqh-ugimzcc medicine. If you think your pain medicine is making you sick to your stomach: Take your medicine after meals (unless your doctor has told you not to). Ask your doctor for a different pain medicine. If your doctor prescribed antibiotics, take them as directed. Do not stop taking them just because you feel better. You need to take the full course of antibiotics. Incision care If you have strips of tape on the incision, leave the tape on for a week or until it falls off. Wash the area daily with warm, soapy water, and pat it dry. Don't use hydrogen peroxide or alcohol, which can slow healing. You may cover the area with a gauze bandage if it weeps or rubs against clothing. Change the bandage every day. Keep the area clean and dry. Other instructions If you breast-feed your baby, you may be more comfortable while you are healing if you place the baby so that he or she is not resting on your belly. Try tucking your baby under your arm, with his or her body along the side you will be feeding on. Support your baby's upper body with your arm. With that hand you can control your baby's head to bring his or her mouth to your breast. This is sometimes called the football hold. Follow-up care is a moran part of your treatment and safety. Be sure to make and go to all appointments, and call your doctor if you are having problems. It???s also a good idea to know your test resultsand keep a list of the medicines you take. When should you call for help? Call 911 anytime you think you may need emergency care. For example, call if: You passed out (lost consciousness). You have severe trouble breathing. You have sudden chest pain and shortness of breath, or you cough up blood. You have severe pain in your belly. Call your doctor now or seek immediate medical care if: You have bright red vaginal bleeding that soaks one or more pads each hour for 2 or more hours. Your vaginal bleeding seems to be getting heavier or is still bright red 4 days after delivery. You pass blood clots larger than the size of a golf ball. You have vaginal discharge that smells bad. You are sick to your stomach or cannot keep fluids down. You have pain that does not get better after you take pain medicine. You have loose stitches, or your incision comes open. Your belly feels tender, or full and hard. You have signs of infection, such as: Increased pain, swelling, warmth, or redness. Red streaks leading from the incision. Pus draining from the incision. Swollen lymph nodes in your neck, armpits, or groin. A fever. You have signs of a blood clot, such as: Pain in your calf, back of the knee, thigh, or groin. Redness and swelling in your leg or groin. You have trouble passing urine or stool, especially if you have pain or swelling in your lower belly. You feel sad, tearful, or hopeless for more than a few days, or you have troubling or dangerous thoughts. Watch closely for changes in your health, and be sure to contact your doctor if: You do not get better as expected. After Your Delivery (the Period): After Your Visit Your Care Instructions Congratulations on the of your baby. Like , the period can be a time of excitement, cecile, and exhaustion. You may look at your wondrous little baby and feel happy. You may also beoverwhelmed by your new sleep hours and new responsibilities. At first, babies often sleep during the days and are awake at night. They do not have a pattern or routine. They may make sudden gasps, jerk themselves awake, or look like they have crossed eyes. Theseare all normal, and they may even make you smile. In these first weeks after delivery, try to take good care of yourself. It may take 4 to 6 weeks to feel like yourself again, and possibly longer if you had a . You will likely feel very tired for several weeks. Your days will be full of ups and downs, but lots of cecile as well. Follow-up care is a moran part of your treatment and safety. Be sure to make and go to all appointments, and call your doctor if you are having problems. It???s also a good idea to know your test resultsand keep a list of the medicines you take. How can you care for yourself at home? Take care of your body after delivery ?? Use pads instead of tampons for the bloody flow that may last as long as 2 weeks. ?? Ease cramps with acetaminophen (Tylenol). ?? Ease soreness of hemorrhoids and the area between your vagina and rectum with ice compresses or witch dwaine pads. ?? Ease constipation by drinking lots of fluid and eating high-fiber foods. Ask your doctor about zdkt-aij-dscslzo stool softeners. ?? Cleanse yourself with a gentle squeeze of warm water from a bottle instead of wiping with toilet paper. ?? Wear a good nursing bra. Ease sore and swollen breasts with warm, wet washcloths. ?? Your period may not start for several months if you are breast-feeding. You may bleed more, and longer at first, than you did before you got . ?? Wait until you are healed (about 4 to 6 weeks) before you have sexual intercourse. Your doctor will tell you when it is okay to have sex. ?? Try not to travel with your baby for 5 or 6 weeks. If you take a long car trip, make frequent stops to walk around and stretch. Avoid exhaustion ?? Rest every day. Try to nap when your baby naps. ?? Ask another adult to be with you for a few days after delivery. ?? Plan for child care teacher if you have other children. ?? Stay flexible so you can eat at odd hours and sleep when you need to. Both you and your baby are making new schedules. ?? Plan small trips to get out of the house. Change can make you feel less tired. ?? Ask for help with housework, cooking, and shopping. Remind yourself that your job is to care for your baby. Know about help for depression ?? Baby blues?? are common for the first 1 to 2 weeks after . You may cry or feel sad or irritable for no reason. ?? Rest whenever you can. Being tired makes it harder to handle your emotions. ?? Go for walks with your baby. ?? Talk to your partner, friends, and family about your feelings. ?? If your symptoms last for more than a few weeks, or if you feel very depressed, ask your doctor for help. ?? depression can be treated. Support groups and counseling can help. Sometimes medicine can also help. Stay healthy ?? Eat healthy foods so you have more energy, make good breast milk, and lose extra baby pounds. ?? If you breast-feed, avoid alcohol and drugs. Stay smoke-free. If you quit during , congratulations. ?? Start daily exercise after 4 to 6 weeks, but rest when you feel tired. ?? Learn exercises to tone your belly. Do Kegel exercises to regain strength in your pelvic muscles.You can do these exercises while you stand or sit. ?? Squeeze the same muscles you would use to stop your urine. Your belly and rear end (buttocks) should not move. ?? Hold the squeeze for 3 seconds, then relax for 3 seconds. ?? Repeat the exercise 10 to 15 times for each session. Do three or more sessions each day. ?? Find a class for new mothers and new babies that has an exercise time. ?? If you had a , give yourself a bit more time before you exercise, and be careful. When should you call for help? Call 911 anytime you think you may need emergency care. For example, call if: ?? You have sudden, severe pain in your belly. ?? You passed out (lost consciousness). Call your doctor now or seek immediate medical care if: ?? You have severe vaginal bleeding. You are passing blood clots and soaking through a pad each hourfor 2 or more hours. ?? Your vaginal bleeding seems to be getting heavier or is still bright red 4 days after delivery, or you pass blood clots larger than the size of a golf ball. ?? You are dizzy or lightheaded, or you feel like you may faint. ?? You are vomiting or cannot keep fluids down. ?? You have a fever. ?? You have new or more belly pain. ?? You pass tissue (not just blood). ?? Your breast or breasts have hard, red, or tender areas. ?? You have an urgent or frequent need to urinate, along with a burning feeling. ?? You have severe pain, tenderness, or swelling in your vagina or the area between your rectum and vagina. ?? You have severe pains in your chest, belly, back, or legs. ?? You have feelings of severe despair or great anxiety. ?? Your baby is unusually cranky or is sleeping too much. ?? Your baby's eyes are red or have discharge. ?? Your baby has white patches on the roof and sides of the mouth or tongue. ?? Your baby's umbilical cord is foul-smelling, swollen, red, or leaking pus. ?? There is blood or mucus in your baby's bowel movements. ?? Your baby has fewer than 6 wet diapers a day. ?? Your baby does not want to eat, or your baby is throwing up with every feeding. ?? Your baby has trouble breathing. ?? Your baby has a rectal temperature of 100.4??F or more, or an underarm temperature over 99.4??F. ?? You baby has a low temperature less than 97.5??F rectal, or less than 97.0??F underarm. ?? Your baby's skin looks yellow. Watch closely for changes in your health, and be sure to contact your doctor if you have any problems. Depression After Childbirth: After Your Visit Your Care Instructions Many women get the baby blues during the first few days after childbirth. They may lose sleep, feel irritable, cry easily, and feel happy one minute and sad the next. Hormone changes are one cause ofthese emotional changes. Also, the demands of a new baby, coupled with visits from relatives or other family needs, add to a mother's stress. The baby blues usually peak around the fourth day and then ease up in less than 2 weeks. If your moodiness or anxiety lasts for more than 2 weeks, or if you feel like life is not worth living, you may have depression. This is different for each mother. Some mothers with serious depression may worry intensely about their infant's well-being, while others may feel distant from their child. Some mothers might even feel that they might harm their baby. A mother may have signs of paranoia, wondering if someone is watching her. Depression is not a sign of weakness. It is a medical condition that requires treatment. Medicine and counseling are often effective at reducing depression. Talk to your doctor about taking antidepressant medicine while breast-feeding. Follow-up care is a moran part of your treatment and safety. Be sure to make and go to all appointments, and call your doctor if you are having problems. It???s also a good idea to know your test resultsand keep a list of the medicines you take. How can you care for yourself at home? Take your medicines exactly as prescribed. Call your doctor if you think you are having a problem with your medicine. Eat a balanced diet, so that you can keep up your energy. Get regular daily exercise, such as walks, to help improve your mood. Get as much sunlight as possible. Keep your shades and curtains open, and get outside as much as youcan. Avoid using alcohol or other substances to feel better. Get as much rest and sleep as possible, and avoid doing too much. Being too tired can increase depression. Play stimulating music throughout your day and soothing music at night. Schedule outings and visits with friends and family. Ask them to call you regularly, so that you do not feel alone. Ask for help with preparing food and other daily tasks. Family and friends are often happy to help amother with a . Be honest with yourself and those who care about you. Tell them about your struggle. Join a support group of new mothers. No one can better understand the challenges of caring for a than other new mothers. When should you call for help? Call 911 anytime you think you may need emergency care. For example, call if: You feel you cannot stop from hurting yourself or someone else. Call your doctor now or seek immediate medical care if: You are having trouble caring for yourself or your baby. You have signs of paranoia that can occur with depression. You fear that someone is watching you, stealing from you, or reading your mind. You hear voices. You have symptoms of depression, such as: Sleeplessness. Anxiety. Hopelessness. Irritability. Poor concentration. Someone you know has depression and: Starts to give away his or her possessions. Uses illegal drugs or drinks alcohol heavily. Talks or writes about , including writing suicide notes and talking about guns, knives, or pills. Starts to spend a lot of time alone. Acts very aggressively or suddenly appears calm. Patient InstructionsQue Ramirez - 07/13/2010 8:15 AM EDT Follow-up visits: -2 days for staple removal -2 weeks for mood check -6 weeks for post- visit, go to lab to have TSH checked before visit -Endocrinology referral made Please bring your blood sugar diary/log to each visit for review Medications: You have been given the following medications. Please use Ibuprofen (the active ingredient in Motrin) every six hours with food around the clock for the next several days and then use it only as needed. This will help with inflammation and pain. Drink plenty of fluids while taking this medication. Please use 1-2 tabs of Percocet every 4-6 hours as needed for pain that breaks throughthe Ibuprofen. This medication can be taken with ibuprofen. Each percocet pill contains 325mg of acetaminophen (the active ingredient in Tylenol). Do not take more then a total of 4000mg of acetaminophen in 24 hours. Include all acetaminophen, from the percocet and any other acetaminophen you are taking, when considering this maximum dose. Colace or senna is a stool softener that should be used everyday to prevent constipation as the pain medication can cause constipation. Synthroid is your medicine for your hypothyroidism ?? Metformin is your medicine for your diabetes AttachmentsThe following attachments cannot be sent through Care Everywhere. AFTER YOUR DELIVERY (THE PERIOD): AFTER YOUR VISIT (HAITIAN) DEPRESSION AFTER CHILDBIRTH: AFTER YOUR VISIT (HAITIAN) SECTION: WHAT TO EXPECT AT HOME (HAITIAN)documented in this encounter Medications at Time of Discharge Medication Sig Dispensed Refills Start Date End Date levothyroxine (SYNTHROID) Take 1 tablet by 30 tablet 5 11/201007/16/2011 125 mcg tablet mouth daily. metFORMIN (GLUCOPHAGE) 500 Take 1 tablet by 30 tablet 12 11/201012/21/2010 mg tablet mouth daily. Pantoprazole (PROTONIX) 40 40 mg, PO, Once 0 05/0607/16/2011 mg SuDR daily documented as of this encounter Progress Notes Kimmie Choi RN - 07/13/2010 1:55 PM EDT Pt with some swelling and bruising noted just below umbilicus. Physicians aware of area plan for pt or FOB to observe area as well as incision for sx/sx of infection. Mey Castro MSW - 07/13/2010 1:11 PM EDT OFFICE OF CARE MANAGEMENT/SOCIAL WORK Patient: Lorene Kavin Referral/Contact: F/u Observations: Met w/ Lorene to provide ongoing support. Discussed how she has been coping. Lorene reports that she had a good weekend and states that her baby is well. JIM Hanks has been in to visit. Lorene reports that she will be staying at [facility] for some additional support for the next week. She states that she is comfortable w/ this arrangement. She also reports that Demario plans on babysitting Tone in the evenings when she returns to work at [employer]. Lorene states that she feels comfortable w/ Demario taking care of Tone and states that she trusts him completely. He sees his daughter Joby approx. 5 days during the week and per Lorene, is a good father. She adds that Demario r emains on [place] until December and per Lorene, this appears to be influencing him from a positive standpoint. During this visit Lorene is able to contact [facility] to schedule a f/u appt. and discuss obtaining a breast pump. She has already contacted [facility] who will be visiting her tomorrow at [employer] [place] Lorene has also agreed [facility]. Lorene reports that she plans on working w/ [facility] to apply for subsidized housing. Provided Lorene w/ an application for food stamps as she plans on attempting to receive some State assistance while out on maternity leave. Discussed PPD and encouraged pt. to reach out to her OB team and her therapist (Moshe through [facility] [facility]) for ongoing support. Discussed availability of CCM services in outpatient Pediatrics. Plan: No further support indicated at this time. Referral to CNM. Rosa Golden RN - 07/13/2010 12:46 PM EDT Care Management Assessment Patient Information has been reviewed in multi-disciplinary rounds with OB and pediatric providers, in medical record, and through patient interview. Introduced self and CRC role to patient and services accepted. Living Situation: Lorene is a 35 y.o. Single delivered by Repeat C/Section at 39 wks gestation. Her was complicated by Type II Diabetes, Obesity, hypothyroidism, depression, and social issues with none of her other 3 children in her custody. With Whom: Has own [employer] apartment. Will stay first week after discharge with the FOB and his fiancee and her three children. Where: [place], [facility] time in community: Years Social Resources: Limited. Employed at [employer]. Has [facility] and [facility]. Has been connected with [facility] ([facility]) and has a therapist through [facility]. Seen by Alize CARPIO during antepartum visits. DCYF report made and plan is to have mother take infant home. Extended family in area for support: Little Cognitive Resources: Intact Childbirth Education: Yes/No Educational level: High School Functional Status: Ambulatory, Independent, Without limitations (C/Section with limitations on lifting/driving) Complications requiring follow-up: Financial Resources: Has [facility], WIC. Will return to work at [employer] Insurance Coverage: [facility] Senior Estimator Chosen: [facility] Baby's Name: Tone Sawant Anticipated Continuing Care Needs: Physical: Recovery from . Initiation of . Emotional: Adjustment to period Psychological: Hx of anxiety/depression. At risk for PPD. Educational: Parenting (other children not in custody) Continuing Care Plan Development: At home resources/Discharge supports suggested. Printed materials and suggested community resources provided to patient: Visiting Nurse visits: Offered services of VNA post discharge. Patient accepted. VNA referral placedwith [facility]NA/[facility] for visit on Tuesday at home of FOB where pt will be staying. [facility] ([facility]) Already connected 4th Trimester New mom support/[facility] DME ordered : None Breast Pump: Has Other: Have infant car seat, transportation (provided by [facility]), and minimal family support. Seen by CARDIOPULMONARY SUPERVISOR. Referred to /Chaim RANDOLHP, VNA/VNH referral placed. . CRC: Claudine CUMMINS/ Asai Canales. Beeper [id number] Kimmie Choi RN - 07/13/2010 12:30 PM EDT Pt and FOB watched [facility] video and denies any further questions at this time. FOB arrived to take pt home with his s.o. and brought a carseat that he had bought a year ago for his other child. When putting infant into carseat RN noticed that carseat would not be tight enough for to ride safelyin car. When checking date for expiration it was noted that the seat was made in 2005. A INVERTED BLOCK OPERATOR came tocheck carseat and agreed with RN that carseat was unsafe. New carseat from donation program brought to pt and placed in carseat. Carseat was tight to and pt gave donation for seat and seat was given to family. Family was told that it was not recommended to use the old carseat and stated a greement. Kimmie Choi RN - 07/13/2010 9:04 AM EDT When arriving in patient's room- noted a stuffed bear to have ID bands on each wrist and one on the neck of the bear- RN then noticed that pt and her baby did not have any ID bands in place- discussed with pt about need to wear ID bands and that it was important for security and safety reasons. New bands applied after pt stated understanding. Que Ramirez - 07/13/2010 7:01 AM EDT Delivery Note Delivery Date: 07/10/10 Subjective: Pt has no complaints at this time, pain controlled on PO meds. Tolerating diet, urinating and ambulating without difficulty. Lochia is light. Looking forward to leaving, will be staying at a friends as her bedroom is on the 3rd floor. Patient declines control at this time stating sheis not in a relationship and does not desire an IUD. General ROS: Review of Systems Lochia: small Physical Exam: Temp: [36.5 ??C (97.7 ??F)-36.7 ??C (98.1 ??F)] Heart Rate: [80-83] Resp: [18] BP: (122-137)/(64) I/O last 3 completed shifts: In: - Out: 1000 [Blood:1000] Physical Exam Skin: 3cm circular area of mottled pink-purple on the aspect of her panus caudal to the umbilicus, this area is not extend to the area under her panus and the incision, (+) induration, non-tender, no sensation to light touch while surrounding skin sensation is intact, same temperature as surrounding skin Uterine Fundus: difficult to palpate secondary to habitus, firm Incision: clean, dry and intact Lochia: appropriate Significant Labs: FSBS fasting 142 this AM but was not really fasting, pt had just eaten some mahendra crackers Last post-prandial 101 Assessment: POD3 Lorene Vale is a 35 y.o. year old G3 now P3004 POD3 from elective RCS at 39w0d. Doing well today, met all post-op milestones, looking forward to d/c. Has some skin changes on superior aspect of panuswhich could be ecchymoses where her panus was taped or could be an early cellulitis. Patient is doing well without problems. nutrition: breast Contraception: condoms Circumcision: not discussed Additional medical and obstetrical issues: Diabetes, obesity, hypothyroidism, chronic hypertension, GERD, Depression Plan: Continue routine care: ?? encourage ambulation ?? routine bowel orders ?? Discharge today ?? Hypothyroidism: continue pre- dose of synthroid 125mcg QD ?? Depression : 2 week follow-up ?? Return POD 5 to remove yvan ?? DMII: ?? Continue FSBS fasting and 2-hr post-prandial, pt to return to her pre- home regimen (FSBS fasting and 1-hr post prandial) and has been asked to bring her log to all visits ?? metformin 500mg QD ?? Referral to Endocrinology post- to establish care ?? Chronic HTN, not on meds - continue to monitor BP ?? GERD: continue pantoprazole ?? Skin changes : directed patient for her and the friend she is staying with to monitor for signs of worsening erythema, spread of effected area This patient was seen and discussed on rounds. QUE RAMIREZ 07/13/2010 Vimal Fulton MD - 07/12/2010 7:47 AM EDT Delivery Note Delivery Date: 07/10/10 Subjective: Pt has no complaints at this time, pain controlled on PO meds. Tolerating diet, urinating and ambulating without difficulty. Lochia is light. General ROS: Review of Systems Lochia: small Physical Exam: Temp: [36.7 ??C (98.1 ??F)] Heart Rate: [85] Resp: [20] BP: (127)/(53) I/O last 3 completed shifts: In: 2213.3 [P.O.:1840; I.V.:373.3] Out: 1250 [Urine:1250] Physical Exam Uterine Fundus: difficult to palpate secondary to habitus, firm Incision: clean, dry and intact Lochia: appropriate Significant Labs: FSBS fasting 99 this AM Last post-prandial 132 Assessment: POD2 Lorene Vale is a 35 y.o. year old G3 now P3004 POD2 from elective RCS at 39w0d. Doing well today, meeting appropriate post-op milestones. Patient is doing well without problems. Infant nutrition: breast Contraception: condoms Circumcision: not discussed Additional medical and obstetrical issues: Diabetes, obesity, hypothyroidism, chronic hypertension, GERD, Depression Plan: Continue routine care: ?? encourage ambulation ?? routine bowel orders ?? anticipated discharge PPD # 3 ?? Hypothyroidism: continue pre- dose of synthroid 125mcg QD ?? Chronic HTN, not on meds - continue to monitor BP ?? Depression : 2 week follow-up ?? GERD: continue pantoprazole ?? DMII: ?? Continue FSBS fasting and 2-hr post-prandial, pt home regimen pre- was FSBS fasting and 1-hr post prandial ?? metformin 500mg QD ?? Referral to Endocrinology post- to establish care This patient was seen and discussed on rounds. QUE RAMIREZ 07/12/2010 Attending post - section note VIMAL FULTON I reviewed the above note and discussed the patient at rounds with the team. I agree with the documented findings and plan of care, except as noted below. My evaluation: S: No complaints, pain will controled. O: Temp: [36.7 ??C (98.1 ??F)] Heart Rate: [80] Resp: [18] BP: (122)/(64) SpO2: [98 %] Uterus: firm aprpopriately tender Abdomen: not distended. Incision: clean dry intact FSBS 99 fasting, postprandials all < 140 Impression: stable POD 2 from c/s. Multiple medical co-morbidities, suggestive of metabolic syndrome. Is currently not in a relationship. BP is well controled Plan: as above. con't metformin, hold antihypertensives. Reerral to endo while has insurance for an overall medical plan. I discussed BP at length and the fact that she may find A relationship and thatan IUD would give her BC that would be covered by insurance and would be long acting. Will leave yvan in for 5 days. VIMAL FULTON 07/12/2010 Kimmie Choi RN - 07/11/2010 6:49 PM EDT Pt requesting tub bath- discussed need for pt to have a shower d/t incision and c/s Vimal Fulton MD - 07/11/2010 7:29 AM EDT Delivery Note Delivery Date: 07/10/10 Subjective: Pt has no complaints at this time, pain controlled on PO meds. Tolerating diet, urinating and ambulating without difficulty. Lochia is light. General ROS: Review of Systems Lochia: small Physical Exam: Temp: [36.5 ??C (97.7 ??F)-36.9 ??C (98.4 ??F)] Heart Rate: [73-102] Resp: [18-24] BP: (110-134)/(46-70) I/O last 3 completed shifts: In: 5115 [P.O.:1340; I.V.:3775] Out: 1850 [Urine:1850] Physical Exam Uterine Fundus: difficult to palpate secondary to habitus, firm Dressing: clean, dry and intact Lochia: appropriate Significant Labs: Results for LORENE VALE ( ) as of 07/11/2010 07:30 07/10/2010 09:05 07/11/2010 05:00 WBC 12.4 (H) 12.9 (H) Hemoglobin 11.7 10.5 (L) Hematocrit 35.6 32.4 (L) Platelets 196 169 FSBS: 2-hr post-prandial POD0: 121 Fasting this AM: 112 Assessment: POD1 Lorene Vale is a 35 y.o. year old G3 now P3004 POD1 from elective RCS at 39w0d. Doing well today, appropriate decrease in H/H from 11.7/35.6->10.5/32.4, meeting appropriate post-op milestones. Patient is doing well without problems. Infant nutrition: breast Contraception: condoms Circumcision: not discussed Additional medical and obstetrical issues: Diabetes, obesity, hypothyroidism, chronic hypertension, GERD, Depression Plan: Continue routine care: ?? encourage ambulation ?? change dressing PPD # 2 ?? routine bowel orders ?? anticipated discharge PPD # 3 ?? Hypothyroidism: patient changed to pre- dose of synthroid 125mcg QD ?? Chronic HTN, not on meds - continue to monitor BP ?? Depression : 2 week follow-up ?? GERD: continue pantoprazole ?? DMII: ?? Continue FSBS fasting and 2-hr post-prandial ?? Patient restarted on pre- metformin 500mg QD This patient was seen and discussed on rounds. QUE RAMIREZ 07/11/2010 Attending post - section note VIMAL FULTON I reviewed the above note and discussed the patient at rounds with the team. I agree with the documented findings and plan of care, except as noted below. My evaluation: S: No complaints, pain will controled. O: AVSS, FSBS 112 adn 116 Uterus: firm aprpopriately tender Abdomen: not distended. Dressing: clean dry intact Impression: stable POD 2 from c/s. complicated by Type II diabetes. She was followed by the [facility] for 3 years prior to for her diabetes. She does not otherwisehave a diabetes provider. She does not have custody of her three prior children. . Plan: as above. Will refer to Endocrinology for a consultation in the period, to establish care since she has insurance. Given her body habitus she is at risk of metabolic syndrome. Will follow FSBS carefully. I suspect she may need adjustment of her metformin dose. Will con't to follow BP. VIMAL FULTON 07/11/2010 ERT Que Ramirez - 07/10/2010 10:41 PM EDT Lorene Vale is a 35 y.o. year old G3 now P3004 who presented to the on 07/10/2010 at 39w0d weeks gestation for elective RCS secondary to prior CS and poor candidate. Risks of procedure were reviewed with the patient, including bleeding, infection, damage to bowel, bladder, surrounding organs, t issues, vessels, and informed consent was confirmed. Please see operative report for full detail. In brief, patient underwent uncomplicated LTCS, EBL 1000cc, delivered from LOT position with weight 4034g and Apgars of 7 and 9. Uterus was closed in two layers with several figure of eights to stabilize bleeding from the left angle of the hysterotomy. Patient tolerated procedure well and was brought to her room for recovery in stable condition. Dr. Nelson was present for and participated in procedure without conflict. Mey Castro MSW - 07/10/2010 5:38 PM EDT OFFICE OF CARE MANAGEMENT/SOCIAL WORK Patient: Lorene Vale Referral/Contact: SW referred to family for support. This sql report writer has met w/ mother during her current admission. Pt is known to SW from OB clinic. Pt. lives in [place] in a [facility] apartment. Has been working throughout her at [employer].Receives [place] Medicaid and WIC. FOB is Demario Sawant. Couple are not currently in a relationship. He is the father of their other three children who are not in their custody (three boys). Mother is currently working w/ [employer] [facility] (MICHELLE Malloy who has completed home visits) and w/ atherapist through [employer] in [place]. Mother and baby will receive a VNA referral upon d/c. XAVIER has called in a report to [facility] d/t family's hx of removal. [facility] concerns on file but are not planning on passing on information to the [facility] at this time. More detailed XAVIER note to follow. Plan: Ongoing support and assessment during admission documented in this encounter Procedure Notes Que Ramirez - 07/10/2010 11:32 PM EDTProcedure(s): SECTION, LOW TRANSVERSE; SECTION, LOW TRANSVERSE Pre-Procedure Diagnose(s): H/O: section; ; Declines (vaginal after ) trial; H/O: section; ; Declines (vaginal after ) trial Post-Procedure Diagnose(s): H/O: section; ; Declines (vaginal after ) trial; H/O: section; ; Declines (vaginal after ) trial BLANKS FOR SOUND Preoperative Diagnosis: 1. Term 39 weeks 0/7 days 2. History of prior section with poor candidate Postoperative Diagnosis: 1. Term 39 weeks 0/7 days 2. History of prior section with poor candidate Procedure: Elective repeat low transverse section with Pfannenstiel incision Surgeon: Que Ramirez Cafe Lead: Christine Cotter Attending: Brittany Nelson Anesthesia: Spinal Estimated Blood Loss: One liter IV Fluids: Two liters of LR Urinary Output: 400 mL Specimen: Placenta to Pathology Complications: None Findings: Male infant in vertex position, apgars 7-9, weight 4034 grams. Omental adhesion with anterior uterus, otherwise normal uterus, tubes, and ovaries. Indication and Consent: Lorene Vale is a 35-year-old who presented as a G3, P-2-0-0-4 at 39 weeks and 0 days for a scheduled elective repeat section. She had a history of a section and was a poor candidate. The patient understood the risk of section including but not limited to infection, blood loss, need for transfusion and the risks for transfusion, damage to the bowel, bladder, rarely baby, or need for hysterectomy. Patient stated understanding and desired to proceed. All questions were answered. Procedure: The patient was taken to the Operating Room where spinal anesthesia was established and found to be adequate. Two grams of cefazolin were given for infection prophylaxis. She was prepared and draped in the dorsal supine position with a leftward tilt. Her pannus was taped so as to expose the area of her previous Pfannenstiel incision. I did get the pannus outside of the field. The Pfannenstiel incision was made with the scalpel. The incision was carried down to the fascia with a Bovie. The fascia was incised and extended laterally. The superior aspect of the fascia was grasped and elevated with the Jair clamps. The rectus muscle was dissected off. The inferior aspect of the fascia was then grasped with the Jair clamps. The underlying rectus muscle and pyramidalis were dissected off with the Bovie. Hemostasis was achieved with the Bovie. The rectus muscle was in the midline down to the level of the pubic symphysis. Peritoneal fatty tissue was bluntly dissected to expose the peritoneum. The peritoneum was found to be free of adherent bowel and entered sharply with scissors. The peritoneal incision was extended superiorly inferiorly to the bladder reflection with good visualization of the bladder. At that time, an omental adhesion to the anterior uterus was noted. The omentum was clamped, cut, and suture ligated. Good hemostasis was observed. The bladder blade was inserted and vesicouterine peritoneum identified. Vesicoperitoneum was opened with the scissors and the bladder flap was developed. The bladder blade was repositioned to keep the bladder out of the operative field. Lower uterine segment was incised with a scalpel. The amniotic fluid was ruptured with an Allis clamp, and clear fluid noted. The uterine incision was extended bluntly with superior and inferior traction. The fetus was in cephalic position. The head was elevated out of the pelvis with special attention paid to avoid using the uterine incision as a fulcrum. Fundal pressure was applied once the head was brought to the incision. The infant was delivered with no difficulty. The mouth and nose were suctioned with a bulb, the cord was clamped and cut. The infant was handed off to the awaiting nursing staff. IV oxytocin was initiated to facilitate uterine contractions. The placenta was delivered intact with manual massage of the uterine fundus. The uterus was then exteriorized. The inside of the uterus was gently wiped with a lap sponge to assure complete removal of the placental membranes. The uterine incision was closed with O-Vicryl suture in a running lock fashion, and then a second layer with O-Vicryl in an imbricating fashion. At that time, additional bleeding from the left angle was stopped with several additional figure eights using a Vicryl suture. Tubes and ovaries were found to be normal. The uterus and ovaries were then returned to the abdominal cavity, and the peritoneal cavity was irrigated. The fluid was removed using suction with the [employer] tip and blood clots were removed with moist lap sponges. The uterine incision was reinspected and good hemostasis was noted. The fascia layer was closed with a 1-0 PDS loop suture. The subcutaneous tissue was closed with four 2-0 plain interrupted sutures. The skin was closed with yvan. Patient tolerated the procedure well. All counts were correct times two. Patient was taken to the Recovery Room in stable condition. Dr. Nelson was present for the entire procedure. documented in this encounter Miscellaneous Notes Miscellaneous - Provider, Scanning - 07/14/2010 2:30 PM EDT Miscellaneous - Provider, Scanning - 07/14/2010 10:53 AM EDT Discharge Summary - Que Ramirez - 07/13/2010 8:10 AM EDT Obstetrics - Discharge Summary Inpatient Obstetrics - Discharge Summary Patient Name: Lorene Vale Patient Age: 35 y.o. Birthdate: 1975 Admit date: 07/10/2010 Discharge date and time: No discharge date for patient encounter. Attending Physician: Brittany Nelson MD Discharge Diagnoses: IUP s/p repeat elective section for h/o prior and poor candidate Secondary Diagnoses : DMII Hypothyroidism Depression GERD Obesity Chronic Problems: Active Non-Hospital Problems Diagnoses ??? Diabetes mellitus type 2 in obese Priority: High Metformin stopped, now on insulin 07/10/10 Post-: insulin stopped and restarted on pre-pergnancy metformin 500mg QD ->Will be monitoring sugars fasting /1hr post-prandial. Given referral to Endocrinology. ??? Priority: High ??? Hypothyroidism Priority: High 07/10/10: Restarted on pre- dose synthroid 125mcg ??? Obesity Priority: High ??? AMA (advanced maternal age) multigravida 35+ Priority: Medium ??? Depression Priority: Medium ??? Previous delivery, antepartum condition or complication Priority: Low ??? GERD (gastroesophageal reflux disease) Priority: Low ??? Hyperlipidemia Priority: Low ??? failure, antepartum No progesterone contraceptive x 4 weeks ??? Hypertension Meds stopped in 2009 Care Provider: [facility] Admission History (per admit note cut and paste) Lorene Vale is a 35 y.o. year old G3 now P3004 who presented to the on 07/10/2010 at 39w0d weeks gestation for elective RCS secondary to prior CS and poor candidate. Hospital Course: Patient underwent uncomplicated LTCS, EBL 1000cc, delivered from LOT position with weight 4034g and Apgars of 7 and 9. Uterus was closed in two layers with several figure of eights to stabilize bleeding from the left angle of the hysterotomy. Patient tolerated procedure well and was brought to her room for recovery in stable condition. Please see the operative report for further details. Her post-operative course was uncomplicated. Her pain was initially well controlled by a morphine TRUCK STRIKER. She was later successfully transitioned to ibuprofen and percocet. She tolerated a regular diet, urinated and ambulated without difficulty. Her lochia was light. She was well. She had an area of ecchymoses on the superior aspect of her panus caudal to her umbilicus, not confluent with her incision which appeared C/D/I. She was directed to monitor the skin area for increasing erythema or spread. Her mood was good and she was discharged to home on POD#3. Important Studies and Lab Data: Labs: 07/10/2010 09:05 07/11/2010 05:00 WBC 12.4 (H) 12.9 (H) Hemoglobin 11.7 10.5 (L) Hematocrit 35.6 32.4 (L) Platelets 196 169 FSBS in appropriate range fasting and 2-hr post-prandial Pending Studies and Lab Data: The patient will need the following 2 tests completed on: 07/07/2010 1. SPECIMEN TO PATHOLOGY (SURGICAL OR DERM) 2. SPECIMEN TO PATHOLOGY (SURGICAL OR DERM) Authorizing Provider: Brittany Nelson MD Updated Allergies/ADRs: Allergies Allergen Reactions ??? Latex Anaphylaxis ??? Sulfa (Sulfonamide Antibiotics) Anaphylaxis and Hives Discharge Medications: Current Discharge Medication List New Meds Details docusate sodium (COLACE) 100 mg Take 100 mg by mouth 2 times daily. Take while you are taking percocet to avoid constipation Qty: 28 capsule Refills: 1 ibuprofen (ADVIL;MOTRIN) 600 mg Take 600 mg by mouth every 6 hours as needed for Pain. Qty: 30 tablet Refills: 1 metFORMIN (GLUCOPHAGE) 500 mg Take 500 mg by mouth daily. Qty: 30 tablet Refills: 12 OXYcodone-acetaminophen (PERCOCET) 1-2 tablets Take 1-2 tablets by mouth every 4 hours as needed for Pain. Qty: 40 tablet Refills: 0 Continued medications with revised dosing Details levothyroxine (SYNTHROID) 125 mcg Take 125 mcg by mouth daily. Qty: 30 tablet Refills: 5 Continued medications, unchanged Details Pantoprazole (PROTONIX) 40 mg SuDR 40 mg, PO, Once daily Qty: Refills: FOLIC ACID ORAL Qty: Refills: VITS W-CA,FE,FA,<1MG, ( VITAMIN ORAL) Qty: Refills: Medications STOPPED insulin NPH human recomb (HUMULIN;NOVOLIN) 100 unit/mL injection Obstetric History: Obstetric History T3 TAB0 SAB0 E0 M1 L4 Name of Baby 1 Filipe ??? Outcome Date 02/1999 GA 39w 0d ??? Delivery Type Vaginal, Spontaneous Delivery ??? at 1 min. Not recorded at 5 min. Not recorded ??? Living Yes Name of Baby 2 Yair ??? Outcome Date 12/1999 GA 40w 0d ??? Delivery Type , Low Transverse ??? at 1 min. Not recorded at 5 min. Not recorded ??? Living Yes Name of Baby 3 Ranjan ??? Outcome Date 12/1999 GA 40w 0d ??? Delivery Type , Low Transverse ??? at 1 min. Not recorded at 5 min. Not recorded ??? Living Yes Name of Baby 4 KAVIN,BABY BOY ??? Outcome Date 07/10/10 GA 39w ??? Delivery Type Lower Segment Transverse ??? at 1 min. 7 at 5 min. 9 ??? Living Yes Past Medical and Surgical History: Past Medical History Diagnosis Date ??? Diabetes mellitus type 2 in obese stopped Metformin 05/2009 ??? Hypothyroidism 2001 on meds prior to ??? Depression ??? Anxiety disorder ??? GERD (gastroesophageal reflux disease) On medication ??? Obesity BMI 44 mg/kg2 ??? Previous section Interested in ??? GERD (gastroesophageal reflux disease) ??? Hypertension Meds stopped in 2009 ??? Hx of migraines Past Surgical History Procedure Date ??? Created by interface SURGICAL EXTRACTIONS,REMOVAL OF IMPACTED TOOTH,PARTAILLY / 32 Procedure Date: 01/01/2009 ??? Cholecystectomy 2005 ??? section 12/1999 twins ??? delivery only 07/10/2010 ?? DELIVERY performed by BRITTANY NELSON at [facility] Family History: Family History Problem Relation Age of Onset ??? High Blood Pressure Mother ??? Alcohol Abuse Father ??? Seizures Brother ??? High Blood Pressure Maternal Grandfather ??? Heart Attack Paternal Grandfather ??? Cancer Paternal Grandfather lung and leg cancer ??? Alcohol Abuse Other pt reports FOB in recovery x4 yrs ??? Drug Abuse Other pt reports FOB in recovery ??? FOB Health Problems Other curved spine and hip dysplasia Social History and Habits: History Social History ??? Marital Status: Single Spouse Name: N/A Number of Children: N/A ??? 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 Smoking status: Former Smoker -- 2.0 packs/day Types: Cigarettes ??? Smokeless tobacco: Not on file Comment: quits during ??? Alcohol Use: No ??? Drug Use: No ??? Sexually Active: [...] involvement with this . Has seen the social services manager. Referred to [facility] but has not contected.Patient and FOB were living together at beginning of but are not living together now. Operations/Major Procedures: Operations: ?? DELIVERY - LATEX ALLERGY Discharge Conditions/Prognosis: Stable Discharge to: Home Contraceptive Plans: Barrier method, patient declined IUD Instructions Given to Patient at Discharge: Provider Instructions Follow-up visits: -2 days for staple removal -2 weeks for mood check -6 weeks for post- visit, go to lab to have TSH checked before visit -Endocrinology referral made Please bring your blood sugar diary/log to each visit for review Medications: You have been given the following medications. 1. Please use Ibuprofen (the active ingredient in Motrin) every six hours with food around the clockfor the next several days and then use it only as needed. This will help with inflammation and pain.Drink plenty of fluids while taking this medication. 2. Please use 1-2 tabs of Percocet every 4-6 hours as needed for pain that breaks throughthe Ibuprofen. This medication can be taken with ibuprofen. Each percocet pill contains 325mg of acetaminophen (the active ingredient in Tylenol). Do not take more then a total of 4000mg of acetaminophen in 24 hours. Include all acetaminophen, from the percocet and any other acetaminophen you are taking, when considering this maximum dose. 3. Colace or senna is a stool softener that should be used everyday to prevent constipation as the pain medication can cause constipation. 4. Synthroid is your medicine for your hypothyroidism ?? Metformin is your medicine for your diabetes General Instructions [facility] Section: What to Expect at Home Your Recovery A section, or , is surgery to deliver your baby through a cut, called an incision,that the doctor makes in your lower belly and uterus. You may have some pain in your lower belly and need pain medicine for 1 to 2 weeks. You can expect some vaginal bleeding for several weeks. You will probably need about 6 weeks to fully recover. It is important to take it easy while the incision is healing. Avoid heavy lifting, strenuous activities, or exercises that strain the belly muscles while you are recovering. Ask a family member or friend for help with housework, cooking, and shopping. This care sheet gives you a general idea about how long it will take for you to recover. But each person recovers at a different pace. Follow the steps below to get better as quickly as possible. How can you care for yourself at home? Activity Rest when you feel tired. Getting enough sleep will help you recover. Try to walk each day. Start by walking a little more than you did the day before. Bit by bit, increase the amount you walk. Walking boosts blood flow and helps prevent pneumonia, constipation, and blood clots. Avoid strenuous activities, such as bicycle riding, jogging, weightlifting, and aerobic exercise, for 6 weeks or until your doctor says it is okay. Until your doctor says it is okay, do not lift anything heavier than your baby. Do not do sit-ups or other exercises that strain the belly muscles for 6 weeks or until your doctor says it is okay. Hold a pillow over your incision when you cough or take deep breaths. This will support your belly and decrease your pain. You may shower as usual. Pat the incision dry when you are done. You will have some vaginal bleeding. Wear sanitary pads. Do not douche or use tampons until your doctor says it is okay. Ask your doctor when you can drive again. You will probably need to take at least 6 weeks off work. It depends on the type of work you do and how you feel. Ask your doctor when it is okay for you to have sex. Diet You can eat your normal diet. If your stomach is upset, try bland, low-fat foods like plain rice, broiled chicken, toast, and yogurt. Drink plenty of fluids (unless your doctor tells you not to). You may notice that your bowel movements are not regular right after your surgery. This is common. Try to avoid constipation and straining with bowel movements. You may want to take a fiber supplement every day. If you have not had a bowel movement after a couple of days, ask your doctor about taking a mild laxative. If you are breast-feeding, do not drink any alcohol. Medicines Take pain medicines exactly as directed. If the doctor gave you a prescription medicine for pain, take it as prescribed. If you are not taking a prescription pain medicine, ask your doctor if you can take an exwz-ikw-kaluynu medicine. If you think your pain medicine is making you sick to your stomach: Take your medicine after meals (unless your doctor has told you not to). Ask your doctor for a different pain medicine. If your doctor prescribed antibiotics, take them as directed. Do not stop taking them just because you feel better. You need to take the full course of antibiotics. Incision care If you have strips of tape on the incision, leave the tape on for a week or until it falls off. Wash the area daily with warm, soapy water, and pat it dry. Don't use hydrogen peroxide or alcohol, which can slow healing. You may cover the area with a gauze bandage if it weeps or rubs against clothing. Change the bandage every day. Keep the area clean and dry. Other instructions If you breast-feed your baby, you may be more comfortable while you are healing if you place the baby so that he or she is not resting on your belly. Try tucking your baby under your arm, with his or her body along the side you will be feeding on. Support your baby's upper body with your arm. With that hand you can control your baby's head to bring his or her mouth to your breast. This is sometimes called the [employer] hold. Follow-up care is a moran part of your treatment and safety. Be sure to make and go to all appointments, and call your doctor if you are having problems. It???s also a good idea to know your test resultsand keep a list of the medicines you take. When should you call for help? Call 911 anytime you think you may need emergency care. For example, call if: You passed out (lost consciousness). You have severe trouble breathing. You have sudden chest pain and shortness of breath, or you cough up blood. You have severe pain in your belly. Call your doctor now or seek immediate medical care if: You have bright red vaginal bleeding that soaks one or more pads each hour for 2 or more hours. Your vaginal bleeding seems to be getting heavier or is still bright red 4 days after delivery. You pass blood clots larger than the size of a golf ball. You have vaginal discharge that smells bad. You are sick to your stomach or cannot keep fluids down. You have pain that does not get better after you take pain medicine. You have loose stitches, or your incision comes open. Your belly feels tender, or full and hard. You have signs of infection, such as: Increased pain, swelling, warmth, or redness. Red streaks leading from the incision. Pus draining from the incision. Swollen lymph nodes in your neck, armpits, or groin. A fever. You have signs of a blood clot, such as: Pain in your calf, back of the knee, thigh, or groin. Redness and swelling in your leg or groin. You have trouble passing urine or stool, especially if you have pain or swelling in your lower belly. You feel sad, tearful, or hopeless for more than a few days, or you have troubling or dangerous thoughts. Watch closely for changes in your health, and be sure to contact your doctor if: You do not get better as expected. After Your Delivery (the Period): After Your Visit Your Care Instructions Congratulations on the of your baby. Like , the period can be a time of excitement, cecile, and exhaustion. You may look at your wondrous little baby and feel happy. You may also beoverwhelmed by your new sleep hours and new responsibilities. At first, babies often sleep during the days and are awake at night. They do not have a pattern or routine. They may make sudden gasps, jerk themselves awake, or look like they have crossed eyes. Theseare all normal, and they may even make you smile. In these first weeks after delivery, try to take good care of yourself. It may take 4 to 6 weeks to feel like yourself again, and possibly longer if you had a . You will likely feel very tired for several weeks. Your days will be full of ups and downs, but lots of cecile as well. Follow-up care is a moran part of your treatment and safety. Be sure to make and go to all appointments, and call your doctor if you are having problems. It???s also a good idea to know your test resultsand keep a list of the medicines you take. How can you care for yourself at home? Take care of your body after delivery ?? Use pads instead of tampons for the bloody flow that may last as long as 2 weeks. ?? Ease cramps with acetaminophen (Tylenol). ?? Ease soreness of hemorrhoids and the area between your vagina and rectum with ice compresses or witch dwaine pads. ?? Ease constipation by drinking lots of fluid and eating high-fiber foods. Ask your doctor about ffnm-brk-bleegln stool softeners. ?? Cleanse yourself with a gentle squeeze of warm water from a bottle instead of wiping with toilet paper. ?? Wear a good nursing bra. Ease sore and swollen breasts with warm, wet washcloths. ?? Your period may not start for several months if you are breast-feeding. You may bleed more, and longer at first, than you did before you got . ?? Wait until you are healed (about 4 to 6 weeks) before you have sexual intercourse. Your doctor will tell you when it is okay to have sex. ?? Try not to travel with your baby for 5 or 6 weeks. If you take a long car trip, make frequent stops to walk around and stretch. Avoid exhaustion ?? Rest every day. Try to nap when your baby naps. ?? Ask another adult to be with you for a few days after delivery. ?? Plan for child care teacher if you have other children. ?? Stay flexible so you can eat at odd hours and sleep when you need to. Both you and your baby are making new schedules. ?? Plan small trips to get out of the house. Change can make you feel less tired. ?? Ask for help with housework, cooking, and shopping. Remind yourself that your job is to care for your baby. Know about help for depression ?? Baby blues?? are common for the first 1 to 2 weeks after . You may cry or feel sad or irritable for no reason. ?? Rest whenever you can. Being tired makes it harder to handle your emotions. ?? Go for walks with your baby. ?? Talk to your partner, friends, and family about your feelings. ?? If your symptoms last for more than a few weeks, or if you feel very depressed, ask your doctor for help. ?? depression can be treated. Support groups and counseling can help. Sometimes medicine can also help. Stay healthy ?? Eat healthy foods so you have more energy, make good breast milk, and lose extra baby pounds. ?? If you breast-feed, avoid alcohol and drugs. Stay smoke-free. If you quit during , congratulations. ?? Start daily exercise after 4 to 6 weeks, but rest when you feel tired. ?? Learn exercises to tone your belly. Do Kegel exercises to regain strength in your pelvic muscles.You can do these exercises while you stand or sit. ?? Squeeze the same muscles you would use to stop your urine. Your belly and rear end (buttocks) should not move. ?? Hold the squeeze for 3 seconds, then relax for 3 seconds. ?? Repeat the exercise 10 to 15 times for each session. Do three or more sessions each day. ?? Find a class for new mothers and new babies that has an exercise time. ?? If you had a , give yourself a bit more time before you exercise, and be careful. When should you call for help? Call 911 anytime you think you may need emergency care. For example, call if: ?? You have sudden, severe pain in your belly. ?? You passed out (lost consciousness). Call your doctor now or seek immediate medical care if: ?? You have severe vaginal bleeding. You are passing blood clots and soaking through a pad each hourfor 2 or more hours. ?? Your vaginal bleeding seems to be getting heavier or is still bright red 4 days after delivery, or you pass blood clots larger than the size of a golf ball. ?? You are dizzy or lightheaded, or you feel like you may faint. ?? You are vomiting or cannot keep fluids down. ?? You have a fever. ?? You have new or more belly pain. ?? You pass tissue (not just blood). ?? Your breast or breasts have hard, red, or tender areas. ?? You have an urgent or frequent need to urinate, along with a burning feeling. ?? You have severe pain, tenderness, or swelling in your vagina or the area between your rectum and vagina. ?? You have severe pains in your chest, belly, back, or legs. ?? You have feelings of severe despair or great anxiety. ?? Your baby is unusually cranky or is sleeping too much. ?? Your baby's eyes are red or have discharge. ?? Your baby has white patches on the roof and sides of the mouth or tongue. ?? Your baby's umbilical cord is foul-smelling, swollen, red, or leaking pus. ?? There is blood or mucus in your baby's bowel movements. ?? Your baby has fewer than 6 wet diapers a day. ?? Your baby does not want to eat, or your baby is throwing up with every feeding. ?? Your baby has trouble breathing. ?? Your baby has a rectal temperature of 100.4??F or more, or an underarm temperature over 99.4??F. ?? You baby has a low temperature less than 97.5??F rectal, or less than 97.0??F underarm. ?? Your baby's skin looks yellow. Watch closely for changes in your health, and be sure to contact your doctor if you have any problems. Depression After Childbirth: After Your Visit Your Care Instructions Many womenget the baby blues during the first few days after childbirth. They may lose sleep, feelirritable, cry easily, and feel happy one minute and sad the next. Hormone changes are one cause of these emotional changes. Also, the demands of a new baby, coupled with visits from relatives or otherfamily needs, add to a mother's stress. The baby blues usually peak around the fourth day and thenease up in less than 2 weeks. If your moodiness or anxiety lasts for more than 2 weeks, or if you feel like life is not worth living, you may have depression. This is different for each mother. Some mothers with serious depression may worry intensely about their infant's well-being, while others may feel distant from their child. Some mothers might even feel that they might harm their baby. A mother may have signs of paranoia, wondering if someone is watching her. Depression is not a sign of weakness. It is a medical condition that requires treatment. Medicine and counseling are often effective at reducing depression. Talk to your doctor about taking antidepressant medicine while breast-feeding. Follow-up care is a moran part of your treatment and safety. Be sure to make and go to all appointments, and call your doctor if you are having problems. It???s also a good idea to know your test resultsand keep a list of the medicines you take. How can you care for yourself at home? Take your medicines exactly as prescribed. Call your doctor if you think you are having a problem with your medicine. Eat a balanced diet, so that you can keep up your energy. Get regular daily exercise, such as walks, to help improve your mood. Get as much sunlight as possible. Keep your shades and curtains open, and get outside as much as youcan. Avoid using alcohol or other substances to feel better. Get as much rest and sleep as possible, and avoid doing too much. Being too tired can increase depression. Play stimulating music throughout your day and soothing music at night. Schedule outings and visits with friends and family. Ask them to call you regularly, so that you do not feel alone. Ask for help with preparing food and other daily tasks. Family and friends are often happy to help amother with a . Be honest with yourself and those who care about you. Tell them about your struggle. Join a support group of new mothers. No one can better understand the challenges of caring for a than other new mothers. When should you call for help? Call 911 anytime you think you may need emergency care. For example, call if: You feel you cannot stop from hurting yourself or someone else. Call your doctor now or seek immediate medical care if: You are having trouble caring for yourself or your baby. You have signs of paranoia that can occur with depression. You fear that someone is watching you, stealing from you, or reading your mind. You hear voices. You have symptoms of depression, such as: Sleeplessness. Anxiety. Hopelessness. Irritability. Poor concentration. Someone you know has depression and: Starts to give away his or her possessions. Uses illegal drugs or drinks alcohol heavily. Talks or writes about , including writing suicide notes and talking about guns, knives, or pills. Starts to spend a lot of time alone. Acts very aggressively or suddenly appears calm. Future Appointments and Orders Future Appointments: Provider: Department: Dept Phone: Center: 07/20/2010 10:00 AM [facility] [phone] [facility] Future Orders Please Complete By Expires TSH [[id number] Custom] 08/21/10 07/14/11 Process Instructions: Scheduling Instructions: Comments: Questions: Responses: Should this service/procedure be billed to the research sponsor? AMB REFERRAL TO ENDOCRINOLOGY [REF22 Custom] Process Instructions: If no progress note charted, please enter Clinical details in comments. Scheduling Instructions: Comments: Questions: Responses: Reason for referral 35yo with type II DM without continuing care, now in immediate period with insurance. Needs to establish care plan. FOLLOW UP [[id number] Custom] Process Instructions: Scheduling Instructions: Comments: - Return in 2 days to [facility] for staple removal - visit 6 weeks after delivery with [facility] provider. - visit 2 weeks after delivery for depression screening with [facility] provider. Questions: Responses: Referrals: Endocrinology Cc: DENISE BARRETO MD, MD Provider Contact Information: DENISE BARRETO MD, Discharge References/Attachments: Discharge References/Attachments AFTER YOUR DELIVERY (THE PERIOD): AFTER YOUR VISIT (HAITIAN) DEPRESSION AFTER CHILDBIRTH: AFTER YOUR VISIT (HAITIAN) Signed: QUE RAMIREZ 07/13/2010 OR Attestation - Brittany Nelson MD - 07/11/2010 8:18 AM EDT I was the attending physician supervising the resident in the above care and I was present with the resident for the entire procedure. Uncomplicated repeat LTCS performed for doctor recommended with prior . Delivery ofLGA male infant. EBL ~ 1000cc. Adhesions of omentum to anterior rectus muscles and uterus noted. Bleeding from L hysterotomy angle controlled with 3 figure of eight sutures. Omental adhesion site bleeding and ligated with 0 vicryl for good hemostasis. Normal uterus, ovaries and fallopian tubes not well visualzed due to habitus and adhesions. Med Student Progress Note - Scott Delisa Z - 07/11/2010 6:48 AM EDT ID: Lorene Vale is a 35 y.o. female PPD# 1 s/p low transverse c/s at 39+1 week. DM on homedose of metformin and hypothyroid on synthroid. EBL of 1000 cc. 24 Events: none Problem list Patient Active Problem List Diagnoses Code ??? Depression 311L ??? GERD (gastroesophageal reflux disease) 530.81S ??? Hyperlipidemia 272.4S ??? Hypothyroidism 244.9AP ??? Obesity 278.00M ??? V22.2C ??? Diabetes mellitus type 2 in obese 250.00EP ??? AMA (advanced maternal age) multigravida 35+ 659.63F ??? Previous delivery, antepartum condition or complication 654.23 ??? macrosomia 656.63P ??? Hypertension 401.9AJ ??? failure, antepartum 676.43D Meds: ??? bolus IV fluid 500 mL Intravenous Once ??? levothyroxine 125 mcg Oral Daily ??? docusate sodium 100 mg Oral BID ??? metFORMIN 500 mg Oral Daily with breakfast ??? esomeprazole 40 mg Oral QAM AC ??? DISCONTD: ceFAZolin in D5W 2 g Intravenous Once ??? DISCONTD: citric acid-sodium citrate 30 mL Oral Food Order Delivery Runner to OR ??? DISCONTD: citric acid-sodium citrate ??? DISCONTD: levothyroxine 200 mcg Oral Daily ??? DISCONTD: bolus IV fluid 500 mL Intravenous Once ??? DISCONTD: ceFAZolin in D5W 2 g Intravenous Once ??? DISCONTD: metFORMIN 500 mg Oral BID WC ??? DISCONTD: TRUCK STRIKER moran S: Reports feeling fine this AM, no acute complaints. Feeding well, mood good, spotty vaginal bleeding, denies CP, SOB, abdominal pain, fever, chills. Does not want permanent contraception at this time, will plan on using barrier method for contraception. O: Vitals Temp: [36.5 ??C (97.7 ??F)-36.9 ??C (98.4 ??F)] Tc - 36.8 ??C (98.2 ??F) Heart Rate: [73-102] BP: (110-134)/(46-70) Resp: [18- 24] SpO2: [97 %-100 %] Intake/Output Summary (Last 24 hours) at 07/11/10 0648 Last data filed at 07/11/10 0500 Gross per 24 hour Intake 5115 ml Output 1850 ml Net 3265 ml PE Gen: NAD, well-appearing CV: RRR no m/r/g Pul: CTAB GI: soft, NT, ND, +BS Uterus: c/s clean, dry, intact, fundus size and tone appropriate post- Extr: no edema Labs: Lab Results Component Value Date WBC 12.9* 07/11/2010 Hemoglobin 10.5* 07/11/2010 Hematocrit 32.4* 07/11/2010 Platelets 169 07/11/2010 Glucose - Post-prandial (122) No results found for this basename: na, K, CL, CO2, BUN, CREATININE, GLUCOSE A/P 35 YO PPD1 for low transverse c/s doing well. Continue routine care. Social work involved. GERD - pantoprazole Change dressing PPD#2, anticipate d/c PPD#3 DMII - glucose under control with pre- metformin 500 mg QD Hypothyroidism- prepregnancy dose of synthroid Contraception: patient plans on using barrier method L&D Delivery Note - Brittany Nelson MD - 07/10/2010 2:09 PM EDT Delivery Summary for Lorene Vale Labor Events: labor: Rupture date: 07/10/2010 Rupture time: 11:25 AM Rupture type: Artificial Fluid Color: Clear Induction: Augmentation: Complications: Cervical ripening: Delivery: Episiotomy: Lacerations: Repair suture: Repair # of packets: Blood loss (ml): 1000 Information for the patient's : Dyllan Vale [[id number]] Delivery 07/10/2010 11:26 AM by Lower Segment Transverse Sex: male Gestational Age: <None> Delivery Clinician: Living?: Yes APGARS One minute Five minutes Ten minutes Skin color: 1 2 Heart rate: 2 2 Grimace: 2 2 Muscle tone: 1 1 Breathin 2 Totals: 7 9 Presentation/position: Vertex Left Occiput Transverse Resuscitation: Suctioning Cord information: 3 Vessels Disposition of cord blood: Blood gases sent? No Complications: Placenta: Delivered: appearance Measurements: Weight: 8 lb 14.3 oz (4034 g) Height: 20.47 Head circumference: 36 cm Chest circumference: Other providers: Delivery Assist Delivery Nurse Additional information: Forceps: Vacuum: Breech: Observed anomalies Delivery Summary for Lorene Vale Labor Events: labor: Rupture date: 07/10/2010 Rupture time: 11:25 AM Rupture type: Artificial Fluid Color: Clear Induction: Augmentation: Complications: Cervical ripening: Delivery: Episiotomy: Lacerations: Repair suture: Repair # of packets: Blood loss (ml): 1000 Information for the patient's : Kavin Baby Boy [[id number]] Delivery 07/10/2010 11:26 AM by Lower Segment Transverse Sex: male Gestational Age: <None> Delivery Clinician: Brittany Nelson Living?: Yes APGARS One minute Five minutes Ten minutes Skin color: 1 2 Heart rate: 2 2 Grimace: 2 2 Muscle tone: 1 1 Breathin 2 Totals: 7 9 Presentation/position: Vertex Left Occiput Transverse Resuscitation: Suctioning Cord information: 3 Vessels Disposition of cord blood: Blood gases sent? No Complications: Placenta: Delivered: appearance [place] Measurements: Weight: 8 lb 14.3 oz (4034 g) Height: 20.47 Head circumference: 36 cm Chest circumference: Other providers: Resident Resident Medical Student Delivery Nurse Registered Nurse Que Jules Additional information: Forceps: Vacuum: Breech: Observed anomalies I supervised the delivery described above. I was present and I participated during the entire delivery (does not to include opening and closing) and there were no overlapping cases. Present for uncomplicated ERCS at 39 weeks for prior CS and poor candidate. Delivery of cephalic male infant [id number]. 7/9. Clear amniotic fluid. Placenta intact ? True knot vs. knot from delivery through loop. EBL 1000cc. Normal fallopian tubes, uterus and ovaries. Mother an stable. documented in this encounter Plan of Treatment Scheduled Referrals Name Type Priority Associated Order Schedule Diagnoses REFERRAL TO Outpatient Referral Routine Diabetes mellitus Ord ered: ENDOCRINOLOGY type 2 in obese 07/13/2010 Hypothyroidism documented as of this encounter Procedures Procedure Name Priority Date/Time Associated Diagnosis Comme nts POCT GLUCOSE Routine 07/13/2010 11:24 Results for this AM EDT procedure are i n the results section. POCT GLUCOSE Routine 07/13/2010 6:04 AM Results f or this EDT procedure are i n the results section. POCT GLUCOSE Routine 07/12/2010 7:54 PM Results f or this EDT procedure are i n the results section. POCT GLUCOSE Routine 07/12/2010 2:41 PM Results f or this EDT procedure are i n the results section. POCT GLUCOSE Routine 07/12/2010 10:32 Results for this AM EDT procedure are i n the results section. POCT GLUCOSE Routine 07/12/2010 6:32 AM Results f or this EDT procedure are i n the results section. POCT GLUCOSE Routine 07/11/2010 8:08 PM Results f or this EDT procedure are i n the results section. POCT GLUCOSE Routine 07/11/2010 1:48 PM Results f or this EDT procedure are i n the results section. POCT GLUCOSE Routine 07/11/2010 9:31 AM Results f or this EDT procedure are i n the results section. POCT GLUCOSE Routine 07/11/2010 6:48 AM Results f or this EDT procedure are i n the results section. DIFFERENTIAL, Routine 07/11/2010 5:00 AM Results for this AUTOMATED EDT procedure are i n the results section. CBC (WITH DIFF) Routine 07/11/2010 5:00 AM Result s for this EDT procedure are i n the results section. POCT GLUCOSE Routine 07/10/2010 8:45 PM Results f or this EDT procedure are i n the results section. POCT GLUCOSE Routine 07/10/2010 4:42 PM Results f or this EDT procedure are i n the results section. SURGICAL PATHOLOGY Routine 07/10/2010 2:20 PM Res ults for this REPORT EDT procedure are i n the results section. @ DELIVERY 07/10/2010 10:21 repeat c/s (WRVU 16.13) AM EDT TYPE AND SCREEN Routine 07/10/2010 9:05 AM Diabetes mellitus ([facility]) EDT type 2 in obese Hypothyroidism Obesity AMA (advanced maternal age) multigravida 35+ Depression Previous delivery, antepartum condition or complication GERD (gastroesophageal reflux disease) Hyperlipidemia failure, antepartum Hypertension macrosomia DIFFERENTIAL, Routine 07/10/2010 9:05 AM Results for this AUTOMATED EDT procedure are i n the results section. ABO/RH TYPING Routine 07/10/2010 9:05 AM Results for this EDT procedure are i n the results section. CBC (WITH DIFF) Routine 07/10/2010 9:05 AM Diabetes mellitus R esults for this EDT type 2 in obese procedure are in the results Hypothyroidism section. Obesity AMA (advanced maternal age) multigravida 35+ Depression Previous delivery, antepartum condition or complication GERD (gastroesophageal reflux disease) Hyperlipidemia failure, antepartum Hypertension macrosomia ANTIBODY SCREEN Routine 07/10/2010 9:05 AM Result s for this EDT procedure are i n the results section. documented in this encounter Results POCT GLUCOSE LAB USE ONLY (07/13/2010 11:24 AM EDT) athologist Signature POC Glucose 124 60 - 199 CERNER mg/dL MILLENNIUM Comment: Supplemental ranges: <110 mg/dL before meals <200 mg/dL all other times of the day Specimen Anatomical Collection Method Collection Time Receive d Time (Source) Location / / Volume Laterality Blood specimen 07/13/2010 11:24 1 (specimen) AM EDT 11:24 AM EDT Brittany Nelson MD POINT OF CARE TEST ORDERABLE S Performing Organization Address City/[facility]/ZIP Code Phon e Number [address] CERNER MILLENNIUM POCT GLUCOSE LAB USE ONLY (07/13/2010 6:04 AM EDT) athologist Signature POC Glucose 142 60 - 199 CERNER mg/dL MILLENNIUM Comment: Supplemental ranges: <110 mg/dL before meals <200 mg/dL all other times of the day Specimen Anatomical Collection Method Collection Time Receive d Time (Source) Location / / Volume Laterality Blood specimen 07/13/2010 6:04 AM 011 6:04 (specimen) EDT AM EDT rBittany Nelson MD POINT OF CARE TEST ORDERABLE S Performing Organization Address City/State/ZIP [facility] Phon e Number [address] CERNER MILLENNIUM POCT GLUCOSE LAB USE ONLY (07/12/2010 7:54 PM EDT) athologist Signature POC Glucose 104 60 - 199 CERNER mg/dL MILLENNIUM Comment: Supplemental ranges: <110 mg/dL before meals <200 mg/dL all other times of the day Specimen Anatomical Collection Method Collection Time Receive d Time (Source) Location / / Volume Laterality Blood specimen 07/12/2010 7:54 PM 011 7:54 (specimen) EDT PM EDT Brittany Nelson MD POINT OF CARE TEST ORDERABLE S Performing Organization Address City/[facility]/ZIP Code Phon e Number [address] CERNER MILLENNIUM POCT GLUCOSE LAB USE ONLY (07/12/2010 2:41 PM EDT) athologist Signature POC Glucose 101 60 - 199 CERNER mg/dL MILLENNIUM Comment: Supplemental ranges: <110 mg/dL before meals <200 mg/dL all other times of the day Specimen Anatomical Collection Method Collection Time Receive d Time (Source) Location / / Volume Laterality Blood specimen 07/12/2010 2:41 PM 011 2:41 (specimen) EDT PM EDT Brittany Nelson MD POINT OF CARE TEST ORDERSHELLEY S Performing Organization Address City/[facility]/ZIP Code Phon e Number [address] CERNER MILLENNIUM POCT GLUCOSE LAB USE ONLY (07/12/2010 10:32 AM EDT) athologist Signature POC Glucose 109 60 - 199 CERNER mg/dL MILLENNIUM Comment: Supplemental ranges: <110 mg/dL before meals <200 mg/dL all other times of the day Specimen Anatomical Collection Method Collection Time Receive d Time (Source) Location / / Volume Laterality Blood specimen 07/12/2010 10:32 1 (specimen) AM EDT 10:32 AM EDT Brittany Nelson MD POINT OF CARE TEST ORDERSHELLEY S Performing Organization Address City/State/ZIP Code Phon e Number [address] CERNER MILLENNIUM POCT GLUCOSE LAB USE ONLY (07/12/2010 6:32 AM EDT) athologist Signature POC Glucose 99 60 - 199 CERNER mg/dL [facility]NIUM Comment: Supplemental ranges: <110 mg/dL before meals <200 mg/dL all other times of the day Specimen Anatomical Collection Method Collection Time Receive d Time (Source) Location / / Volume Laterality Blood specimen 07/12/2010 6:32 AM 011 6:32 (specimen) EDT AM EDT Brittany Nelson MD POINT OF CARE TEST ORDERABLE S Performing Organization Address City/[facility]/ZIP Code Phon e Number [address] CERNER MILLENNIUM POCT GLUCOSE LAB USE ONLY (07/11/2010 8:08 PM EDT) athologist Signature POC Glucose 132 60 - 199 CERNER mg/dL MILLENNIUM Comment: Supplemental ranges: <110 mg/dL before meals <200 mg/dL all other times of the day Specimen Anatomical Collection Method Collection Time Receive d Time (Source) Location / / Volume Laterality Blood specimen 07/11/2010 8:08 PM 011 8:08 (specimen) EDT PM EDT Brittany Nelson MD POINT OF CARE TEST ORDERSHELLEY S Performing Organization Address City/[facility]/ZIP Code Phon e Number [address] CERNER MILLENNIUM POCT GLUCOSE LAB USE ONLY (07/11/2010 1:48 PM EDT) athologist Signature POC Glucose 100 60 - 199 CERNER mg/dL MILLENNIUM Comment: Supplemental ranges: <110 mg/dL before meals <200 mg/dL all other times of the day Specimen Anatomical Collection Method Collection Time Receive d Time (Source) Location / / Volume Laterality Blood specimen 07/11/2010 1:48 PM 011 1:48 (specimen) EDT PM EDT Brittany Nelson MD POINT OF CARE TEST ORDERABLE S Performing Organization Address City/State/[place] [address] CERNER MILLENNIUM POCT GLUCOSE LAB USE ONLY (07/11/2010 9:31 AM EDT) P athologist Signature POC Glucose 118 60 - 199 CERNER mg/dL MILLENNIUM Comment: Supplemental ranges: <110 mg/dL before meals <200 mg/dL all other times of the day Specimen Anatomical Collection Method Collection Time Receive d Time (Source) Location / / Volume Laterality Blood specimen 07/11/2010 9:31 AM 011 9:31 (specimen) EDT AM EDT Brittany Nelson MD POINT OF CARE TEST ORDERABLE S Performing Organization Address City/State/[place] [address] CERNER MILLENNIUM POCT GLUCOSE LAB USE ONLY (07/11/2010 6:48 AM EDT) P athologist Signature POC Glucose 112 60 - 199 CERNER mg/dL MILLENNIUM Comment: Supplemental ranges: <110 mg/dL before meals <200 mg/dL all other times of the day Specimen Anatomical Collection Method Collection Time Receive d Time (Source) Location / / Volume Laterality Blood specimen 07/11/2010 6:48 AM 011 6:48 (specimen) EDT AM EDT Brittany Nelson MD POINT OF CARE TEST ORDERABLE S Performing Organization Address City/State/ZIP Code Phon e Number [address] CERNER MILLENNIUM (ABNORMAL) REFLEX LAB-A-DIFF (07/11/2010 5:00 AM EDT) Patholo gist Method Time Signature Neutrophils % 83.7 (H) 34.0 - CERNER 71.0 % MILLENNIUM Neutr Abs (ANC) 10.77 (H) 1.50 - CERNER 6.30 MILLENNIUM x10(3)/mc L Lymphocytes % 9.5 (L) 19.0 - CERNER 53.0 % MILLENNIUM Lymphocytes Abs 1.2 1.0 - 3.6 CERNER x10(3)/mc MILLENNIUM L Monocytes % 5.8 4.0 - CERNER 13.0 % MILLENNIUM Monocyte Abs 0.8 0.2 - 1.0 CERNER x10(3)/mc MILLENNIUM L Eosinophils % 0.5 0.0 - 7.0 CERNER % MILLENNIUM Eosinophils Abs 0.1 0.0 - 0.5 CERNER x10(3)/mc MILLENNIUM L Basophils % 0.1 0.0 - 2.0 CERNER % MILLENNIUM Basophils Abs 0.0 0.0 - 0.2 CERNER x10(3)/mc MILLENNIUM L Immature Gran % 0.40 0.00 - CERNER 0.66 % MILLENNIUM Comment: Immature granulocytes(IG's)percentage an d absolute count will include metamyelocytes, myelocytes, and promyelo cytes. Blood smears from CBCs yielding IG's will be scanned manually for concor dangorge. If this scan disagrees with the automated IG or if promyelocytes are not ed, a manual differential will be performed. Kayleen Gran Abs 0.05 0.00 - 0.05 x10(3)/mcL CER NER MILLENNIUM Specimen Anatomical Collection Method Collection Time Receive d Time (Source) Location / / Volume Laterality Blood specimen 07/11/2010 5:00 AM 011 5:10 (specimen) EDT AM EDT Brittany Nelson MD HEMATOLOGY ORDERABLES Performing Organization Address City/State/[place] [address] CERNER MILLENNIUM (ABNORMAL) CBC (with Diff) (07/11/2010 5:00 AM EDT) P athologist Signature WBC 12.9 (H) 4.0 - 10.0 CERNER x10(3)/mcL MILLENNIUM RBC 3.57 (L) 3.93 - CERNER 5.22 MILLENNIUM x10(6)/mcL Hemoglobin 10.5 (L) 11.2 - CERNER 15.7 gm/dL MILLENNIUM Hematocrit 32.4 (L) 34.0 - CERNER 45.0 % MILLENNIUM MCV 90.8 79.0 - CERNER 94.0 fL MILLENNIUM MCH 29.4 26.6 - CERNER 32.2 pg MILLENNIUM MCHC 32.4 32.0 - CERNER 36.5 gm/dL MILLENNIUM Platelets 169 145 - 370 CERNER x10(3)/mcL MILLENNIUM RDWSD 48.4 (H) 35.0 - CERNER 46.0 fL MILLENNIUM RDWCV 14.7 (H) 10.9 - CERNER 14.4 % MILLENNIUM MPV 11.9 9.0 - 12.0 CERNER fL MILLENNIUM Specimen Anatomical Collection Method Collection Time Receive d Time (Source) Location / / Volume Laterality Blood specimen 07/11/2010 5:00 AM 011 5:10 (specimen) EDT AM EDT Brittany Nelson MD HEMATOLOGY ORDERABLES Performing Organization Address City/[facility]/ZIP Code Phon e Number [address] [facility]UM POCT GLUCOSE LAB USE ONLY (07/10/2010 8:45 PM EDT) P athologist Signature POC Glucose 121 60 - 199 CERNER mg/dL [facility] Comment: Supplemental ranges: <110 mg/dL before meals <200 mg/dL all other times of the day Specimen Anatomical Collection Method Collection Time Receive d Time (Source) Location / / Volume Laterality Blood specimen 07/10/2010 8:45 PM 011 8:45 (specimen) EDT PM EDT Brittany Nelson MD POINT OF CARE TEST ORDERABLE S Performing Organization Address City/[facility]/ZIP Code Phon e Number [address] [facility] MILLENNIUM POCT GLUCOSE LAB USE ONLY (07/10/2010 4:42 PM EDT) P athologist Signature POC Glucose 86 60 - 199 CERNER mg/dL [facility] Comment: Supplemental ranges: <110 mg/dL before meals <200 mg/dL all other times of the day Specimen Anatomical Collection Method Collection Time Receive d Time (Source) Location / / Volume Laterality Blood specimen 07/10/2010 4:42 PM 011 4:42 (specimen) EDT PM EDT Brittany Nelson MD POINT OF CARE TEST ORDERABLE S Performing Organization Address City/[facility]/ZIP Code Phon e Number [address] [facility] (07/10/2010 2:20 PM EDT) Component Value Ref Test Analysis Performed At [facility] gist Range Method Time Signature Surgical [facility] ? [facility] ? Provider: ?? BRITTANY NELSON Pt. Name: ?? Mary VALE ? Acc #: ?[id number] ?Pt. MRN: ?[id number] ? Col Date: ?? 07/10/2010 ?/Sex: ? 1975,(35 ? years),Female ? Rec Date: ?? 07/13/2010 ?LOC: ?BP ? SURGICAL PATHOLOGY ? ---Pathologic Diagnosis--- ? Third trimester placenta, cord and membranes: ?Negative for chorioamnionitis or funisitis. ? CR-0 ? 07/15/10 ? LJT ? 07/15/10 Verified by: ? Zahida BAUTISTA, Trisha Javier ? Pathologist ? (Electronic Si gnature) ? The attending pathologist whose signature appears o n this report has ? reviewed all diagnostic slides and has edited the siria ss and/or ? microscopic portion of the report in rendering the fi nal pathologic ? diagnosis. ? ---Microscopic Description--- ? Slides reviewed, microscopic description not recorded . ? ---Gross Description--- ? Labeled/Fixative: ? Labeled with the patient's na me and medical ? record number, fresh . ? Qty/Size/Weight: ?Single, 18.5 x 18.0 x 3.0 cm , 527 g. ? Tissue Description: ?? Robertson discoid placenta. ?Membranes: ? Yellow-pink, semitranslucent with scattered, ? pitt-yellow opacities. ??The membrane inserts 100% ? circummarginate, 3.5 x 5.0 cm from the placental disc ? margin. ?Cord: ?52.5 x 1.6 x 1.4 cm; three vessels; eccentric ? insertion. ??The detached segment of cord shows a true ? umbilical cord knot. ? Surface: ? Pitt-blue, glistening. ??The vascular territory ? occupies an area measuring 10.0 x 10.5 cm of the ? center of the disc. ?Maternal Surface: ??Dark red, intact, and comple te. ?Parenchyma: ?The specimen is serially sectioned at 0.5-cm to ? 1.0-cm intervals. ??Sections show dark red, soft, ? homogeneous pareryn ma. ? Sections/Processing: ??Sections are submitted as follows: ??(1) membrane ? roll; (2) proximal and distal cord; (3) surface ? with parenchyma; (4) maternal surface with ? parenchyma. ??(R4) ? ?aje/JRP ? [facility] ? Provider: ?? BRITTANY NELSON Pt. Name: ?? Mary VALE A ? Acc #: ?[id number] ?Pt. MRN: ?[id number] ? Col Date: ?? 07/10/2010 ?/Sex: ? 1975,(35 ? years),Female ? Rec Date: ?? 07/13/2010 ?LOC: ?BP ? SURGICAL PATHOLOGY ? ---Clinical Information--- ? Specimen Submitted: ? A - Placenta ? Clinical History/Diagnosis: ? 35-yr-old G3 now P3004 with repeat C sect ion at 39 weeks 0 days, HX of ? diabetes mellitus type 2 Specimen (Source) Anatomical Collection Method Collection Time Re ceived Time Location / / Volume Laterality 07/10/2010 2:20 PM EDT Brittany Nelson MD PATHOLOGY/CYTOLOGY ORDERABLE S Performing Organization Address City/State/[place] [address] CERNER MILLENNIUM (ABNORMAL) REFLEX LAB-A-DIFF (07/10/2010 9:05 AM EDT) [facility] Method Time Signature Neutrophils % 79.4 (H) 34.0 - CERNER 71.0 % MILLENNIUM Neutr Abs (ANC) 9.84 (H) 1.50 - CERNER 6.30 MILLENNIUM x10(3)/mc L Lymphocytes % 13.9 (L) 19.0 - CERNER 53.0 % MILLENNIUM Lymphocytes Abs 1.7 1.0 - 3.6 CERNER x10(3)/mc MILLENNIUM L Monocytes % 4.8 4.0 - CERNER 13.0 % MILLENNIUM Monocyte Abs 0.6 0.2 - 1.0 CERNER x10(3)/mc MILLENNIUM L Eosinophils % 0.8 0.0 - 7.0 CERNER % MILLENNIUM Eosinophils Abs 0.1 0.0 - 0.5 CERNER x10(3)/mc MILLENNIUM L Basophils % 0.1 0.0 - 2.0 CERNER % MILLENNIUM Basophils Abs 0.0 0.0 - 0.2 CERNER x10(3)/mc MILLENNIUM L Immature Gran % 1.00 (H) 0.00 - CERNER 0.66 % MILLENNIUM Comment: Immature granulocytes(IG's)percentage an d absolute count will include metamyelocytes, myelocytes, and promyelo cytes. Blood smears from CBCs yielding IG's will be scanned manually for concor dance. If this scan disagrees with the automated IG or if promyelocytes are not ed, a manual differential will be performed. Kayleen Gran Abs 0.12 (H) 0.00 - 0.05 x10(3)/mcL CER NER MILLENNIUM Specimen Anatomical Collection Method Collection Time Receive d Time (Source) Location / / Volume Laterality Blood specimen 07/10/2010 9:05 AM 011 9:15 (specimen) EDT AM EDT Leticia Jett MD HEMATOLOGY ORDERABLES Performing Organization Address City/State/[place] [address] CERNER MILLENNIUM REFLEX LAB-ANTIBODY SCREEN (07/10/2010 9:05 AM EDT) Analysis Performed At Patho logist Time Signature Ab Screen Negative [facility] Expires at [phone] CERNER [id number] on: MILLENNIUM Specimen Anatomical Collection Method Collection Time Receive d Time (Source) Location / / Volume Laterality Blood specimen 07/10/2010 9:05 AM 011 9:15 (specimen) EDT AM EDT Leticia Jett MD BLOOD BANK ORDERABLES Performing Organization Address City/State/ZIP Code Phon e Number [address] [facility] REFLEX LAB-ABO/RH TYPING (07/10/2010 9:05 AM EDT) athologist Signature ABORh Type A Pos [facility] Specimen Anatomical Collection Method Collection Time Receive d Time (Source) Location / / Volume Laterality Blood specimen 07/10/2010 9:05 AM 011 9:15 (specimen) EDT AM EDT Leticia Jett MD BLOOD BANK ORDERABLES Performing Organization Address City/State/ZIP Code Phon e Number [address] [facility] (ABNORMAL) CBC (with Diff) (07/10/2010 9:05 AM EDT) athologist Signature WBC 12.4 (H) 4.0 - 10.0 CERNER x10(3)/mcL MILLENNIUM RBC 3.94 3.93 - CERNER 5.22 MILLENNIUM x10(6)/mcL Hemoglobin 11.7 11.2 - CERNER 15.7 gm/dL MILLENNIUM Hematocrit 35.6 34.0 - CERNER 45.0 % MILLENNIUM MCV 90.4 79.0 - CERNER 94.0 fL MILLENNIUM MCH 29.7 26.6 - CERNER 32.2 pg MILLENNIUM MCHC 32.9 32.0 - CERNER 36.5 gm/dL MILLENNIUM Platelets 196 145 - 370 CERNER x10(3)/mcL MILLENNIUM RDWSD 47.3 (H) 35.0 - CERNER 46.0 fL MILLENNIUM RDWCV 14.3 10.9 - CERNER 14.4 % MILLENNIUM MPV 11.9 9.0 - 12.0 CERNER fL MILLENNIUM Specimen Anatomical Collection Method Collection Time Receive d Time (Source) Location / / Volume Laterality Blood specimen 07/10/2010 9:05 AM 011 9:15 (specimen) EDT AM EDT Leticia Jett MD HEMATOLOGY ORDERABLES Performing Organization Address City/State/[place] [address] [facility] documented in this encounter Visit Diagnoses Not on filedocumented in this encounter Active and Recently Administered Medications Times are shown in EDT. Scheduled Medication Order 07/11/2010 07/12/2010 07/13/2010 docusate sodium (COLACE) capsule 100 mg 0811 (Given - Provider: Kimmie Choi RN)2100 (Given - Provider: Brittnee Flynn RN) 0804 (Given - Provider: Ary Jules RN)2100 (Given - Provider: Brittnee Flynn RN) 0837 (Given - Provider: Kimmie Choi RN) 100 mg, Oral, 2 TIMES DAILY, First dose on Tue07/10/10 at 1430, Until Discontinued, Routine esomeprazole (NEXIUM) capsule 40 mg (CANCELED) 0811 (G iven - Provider: Kimmie Choi RN) 0804 (Given - Provider: Ary Jules RN) 0837 (Giv en - Provider: Kimmie Choi RN) 40 mg, Oral, EVERY MORNING BEFORE BREAKF AST, First dose on Tue07/11/10 at 0730, Until Discontinued, Routine levothyroxine (SYNTHROID) tablet 125 mcg 0600 (Given - Provider: Allyson Osorio RN - Comment: should be given at 6 am) 0630 (Given - Provider: Brittnee Flynn RN)0900 (Canceled Entry - Provider: Brittnee Hernandez RN) 0837 (Given - Provider: Kimmie Choi RN) 125 mcg, Oral, DAILY, First dose on Tue07/10/10 at 1430, Until Discontinued, Routine metFORMIN (GLUCOPHAGE) tablet 500 mg 0812 (Given - Pro vider: Kimmie Choi RN) 0804 (Given - Provider: Ary Jules RN) 0837 (Giv en - Provider: Kimmie Choi RN) 500 mg, Oral, DAILY WITH BREAKFAST, Firs t dose on 07/11/10 at 0800, Until Discontinued, Routine PRN Medication Order 07/11/2010 07/12/2010 07/13/2010 diph,pertuss(acel),tet vac(PF) (ADACEL, Tdap) injection 0.5 mL ( COMPLETED) 1128 (Given - Provider: Kimmie Choi RN) 0.5 mL, Intramuscular, PRIOR TO DISCHARG E, 1 dose, Starting Tue07/10/10 at 1420, Until Discontinued, Per Protocol, Routine ibuprofen (ADVIL;MOTRIN) tablet 600 mg 0530 (Given - P rovider: Allyson Osorio RN)1514 (Given - Provider: Liliana Jenkins RN) 1033 (Given - Provider: Ary Jules RN)2300 (Given - Provider: Brittnee Flynn RN) 0837 (Given - Provider: Kimmie Choi RN) 600 mg, Oral, EVERY 6 HOURS PRN, Startin g Tue07/10/10 at 2119, Until 07/13/10 at 1450, Pain, Maximum dose of 3200 mg from all sources in 24 hours, Routine OXYcodone-acetaminophen (PERCOCET) 5-325 mg per tablet 1-2 tablet 0530 (Given - Provider: Allyson Osorio RN)0825 (Given - Provider: Kimmie Choi RN)1518 (Given - Provider: Liliana Jenkins, MICHELLE)2030 (Given - Provider: Brittnee Flynn RN) 0053 (Given - Provider: Brittnee Harry RN)1033 (Given - Provider: Ary Jules RN)1444 (Given - Provider: Ary Jules RN)2002 (Given - Provider: Brittnee Flynn RN) 0838 (Given - Provider: Kimmie Choi RN) 1-2 tablet, Oral, EVERY 4 HOURS PRN, Sta rting Tue07/10/10 at 2118, Until 07/13/10 at 1450, Pain, Maximum dose of acetaminophen is 4000 mg from all sources in 24 hours., Routine documented in this encounter Care Teams Wrapper Off Relationship Specialty Start Date End Date Denise Barreto MD PCP - General 01/27/10 08/29/11 [facility] [place] [address] documented as of this encounter
--- OUTSIDE RECORDS SUMMARY | 2021-12-17 15:09 | XMS_ITS | Encounter Summary ---
:1975 Author Organization [facility] [place] [address] Care Team Providers Name Role Phone Denise Darnell MD Primary Care Provider Reason for Visit Reason Comments Care Encounter Details Date Type Department Care Team Description 08/25/2010 Visit Obstetrics and Brittany Nelson Pap smear for Gynecology at [facility] MD Mary cervical cancer [facility] screening ([facility] [address]ise) [place], [place] OBSTETRICS & [phone] GYNECOLOGY [phone] [place], [place] [address] Social History Tobacco Use Types [...] Sign Reading Time Taken Comments Blood Pressure 124/76 08/25/2010 9:59 AM EDT Pulse - - Temperature - - Respiratory Rate - - Oxygen Saturation - - Inhaled Oxygen Concentration - - Weight 140 kg (308 lb 9.6 oz) 08/25/2010 9:59 AM EDT Height - - Body Mass Index 45.57 06/03/2010 3:41 PM EDT documented in this encounter Progress Notes Brittany Nelson MD - 08/25/2010 10:14 AM EDT Name: Evita Singleton Date of : 1975 Date of Service: 08/26/2010 Provider: Brittany Nelson Ms. Singleton was seen today for care. She underwent a ERCS delivery at [facility]. Her wascomplicated by obesity, T2DM, prior CS, social disarry, hypothyroidism, depression. Today she complains of some burning in incision. She is not sexually active. She has intermitrtent bleeding. She denies perineal pain. She is taking metformin and checking glucose 1x/d And all < 90. Has PCP follow up next week. Involved with psychiatric social worker supervisor and court issues related to FOB's parental rights. control options were discussed at length. The patient desires Orthotricyclen. Smoking: Denies Significant medical history: T2DM, CHTN, hypothyroidism, depression Pap smear: 2008 Physical Exam: Blood pressure 124/76, weight 139.98 kg (308 lb 9.6 oz), last menstrual period 10/21/2009. HEENT: normocephalic, atraumatic. Lungs: clear. Heart: RRR, no murmurs. Breasts: Symmetric, no masses or discharge. No palpable lymph nodes. BSE was explained and demonstrated. Candidal infection under L breast Abdomen: soft, nontender, no hepatosplenomegaly, obese Wound CDI Extremities: No cyanosis, clubbing or edema. External genitalia, vulva, bartholin glands and What Cheer's glands normal. Vaginal Exam: Uterus anteverted anteflexed of normal size limited by habitus. Adnexa nonpalpable Depression Screen: 9 Assessment/Plan: 1. Normal 2. Pap smear: obtained 3. Control: Wants orthotricyclen and will prescribe due to risks of unplanned in T2DM and is normotensive today. Will need BP check in 1-3 months with PCP. Considered Mirena IUD but didnot pursue it and now will be w/o insurance after 6 weeks. 4. supervisor decorating follow up: PCP for T2DM, CHTN, hypothyroidism, depression Brittany Nelson MD Maternal- Medicine documented in this encounter Miscellaneous Notes Miscellaneous - Mitul, Catalyst Plant Supervisor - 09/03/2010 10:00 AM EDT Miscellaneous - Mitul, Catalyst Plant Supervisor - 09/01/2010 11:51 AM EDT documented in this encounter Plan of Treatment Scheduled Orders Name Type Priority Associated Diagnoses Order S chedule Cytopathology Gynecological Lab Routine Pap smear for cervical Ordered: 08/25/2010 (not ) cancer screening documented as of this encounter Procedures Procedure Name Priority Date/Time Associated Diagnosis Comme nts BUSINESS PROCESS CONSULTANT MOLECULAR Routine 08/25/2010 1:34 PM Results for this GENETICS REPORT EDT procedure ar e in the results section. BUSINESS PROCESS CONSULTANT CYTOLOGY FINAL Routine 08/25/2010 1:34 PM Res ults for this REPORT EDT procedure are i n the results section. documented in this encounter Results BUSINESS PROCESS CONSULTANT MOLECULAR GENETICS REPORT (08/25/2010 1:34 PM EDT) [facility] gist Method Time Signature BUSINESS PROCESS CONSULTANT Molecular CERNER Genetics ? [facility] Report ? Provider: ?? BRITTANY NELSON Pt. Name: ?? Mary SINGLETON ? Acc #: ?[id number] ?Pt. MRN: ?[id number] ? Col Date: ?? 08/25/2010 ? /Sex: ?1 04/28/1974,(35 ? years),Female ? Rec Date: ?? 08/25/2010 ? LOC: ?5L ? MOLECULAR GENETIC STUDIES ? ---REPORT OF DNA ANALYSIS--- ? [employer] INVADER HPV ASR ? NEGATIVE for high-risk HPV *. ? It is recommended juanita t patients with ASCUS cytology and a negative test for ? high-risk HPV follow up with an annual cytology screen. ??99.3% of women ? with ASCUS cytology a nd a negative high-risk HPV test will not have disease ? (Consensus Management Conference Guidelines, in Jair D, Fercho CRUZ, ? Tarone R. ??Comparison of three m anagement strategies for patients with ? atypical squamous abe ls of undetermined significance. ??J Natl Cancer Inst ? 2001;93:293-9). ??(* [employer] test used here will detect high- ? risk HPV types 16, 18 , 31, 33, 35, 39, 45, 51, 52, 56, 58, 59,66 and 68.) ? Specimen: HPV Testing - Cytology Liquid Based Prep ? Reviewed by: ??Shavonne To Stovall H(ASCP)CM , CLSIII ? A ?ABE Cerv-Endocerv LBP ? B ?HPVDO Do HPV Testing ? _ ? Verified date: ??08/28/10 ??EIR ? Verified by: ?Lab Review, Molecular Genetics ? (Electronic Signature) Specimen (Source) Anatomical Collection Method Collection Time Re ceived Time Location / / Volume Laterality 08/25/2010 1:34 PM EDT Brittany Nelson MD PATHOLOGY/CYTOLOGY ORDERABLE S Performing Organization Address City/State/[place] [address] [facility] BUSINESS PROCESS CONSULTANT CYTOLOGY FINAL REPORT (08/25/2010 1:34 PM EDT) Component Value Ref Test Analysis Performed At [facility] Range Method Time Signature Prosthetic Aide Cytology CERNER Final Report ? [facility] ? Provider: ?? BRITTANY NELSON Pt. Name: ?? Mary SINGLETON ? Acc #: ?[id number] ?Pt. MRN: ?[id number] ? Col Date: ?? 08/25/2010 ? /Sex: ?1 04/28/1974,(35 ? years),Female ? Rec Date: ?? 08/25/2010 ? LOC: ?5L ? CYTOPATHOLOGY: ??BUSINESS PROCESS CONSULTANT ? ---Adequacy--- ? Specimen submitted is satisfactory. ? Endocervical component present. ? ---Cytopathologic Diagnosis--- ? NORMAL ? Negative for Intraepithelial Lesion or Malignancy (NI LM). ? 08/27/10 ?? Screened by: ??SLA ? 08/27/10 ?? Verified by: ??PARTH Sparrow(ASCP), S oscar L. - ? Washing And Screening Plant Supervisor ? ---Clinical Information--- ? Hormones?: ?No ? Hysterectomy?: ?No ?: ?Yes ?: ?No ? I.U.D.?: ?No ? Pelvic Radiation: ? No ? Prior BUSINESS PROCESS CONSULTANT Therapy?: ? No ? Hist Abnl Pap/Biopsy?: ??No ? HPV Option: ? Concurrent HPV ? Specimen Source: ?Cervical Endocervical LBP ? Preparation: ?Liquid Based Pap ? LMP: ?Unknown ? Hist of HPV Vaccine?: ?? No ? Hist of Smoking?: ? No ? Hist of EVAN exposure?: ??No ? Clinical Data, Significant Therapy and Clinical Impre ssion: ?Diagnosis: Pap Smear For Cervical Cancer Screeni ng [V76.2ah] ? This Pap Test has bee n evaluated with the assistance of the ThinPrep Pap ? Test Imaging System. ? Note: ? [facility] ? Provider: ?? BRITTANY NELSON Pt. Name: ?? Mary SINGLETON ? Acc #: ?[id number] ?Pt. MRN: ?[id number] ? Col Date: ?? 08/25/2010 ? /Sex: ?1 04/28/1974,(35 ? years),Female ? Rec Date: ?? 08/25/2010 ? LOC: ?5L ? The Pap test is a screening test for cervical c ancer with an inherent ? false-negative rate dependent upon several variables. ??For further ? information please contact the [facility] Laboratory. ? CYTOPATHOLOGY: ??BUSINESS PROCESS CONSULTANT ? Reference: ??Mily subramanian CS. ??Forest Worker of Pap Smear Results. ??In: ? Yuniel BS, Troy HH, ed. ??The Pap Smear. ??[place]: ??Vic, 2002: ? 71-77. Specimen (Source) Anatomical Collection Method Collection Time Re ceived Time Location / / Volume Laterality 08/25/2010 1:34 PM EDT Brittany Nelson MD PATHOLOGY/CYTOLOGY ORDERABLE S Performing Organization Address City/State/ZIP [place] [address] HOSPITAL LABORATORY [facility] documented in this encounter Visit Diagnoses Diagnosis Pap smear for cervical cancer screening - Primary Screening for malignant neoplasm of the cervix documented in this encounter Care Teams Social Worker Health Services Relationship Specialty Start Date End Date Denise Darnell MD PCP - General 01/27/10 08/29/[address] [facility] [address] [facility] [address] documented as of this encounter
--- OUTSIDE RECORDS SUMMARY | 2021-12-17 15:09 | XMS_ITS | Encounter Summary ---
:1975 Author Organization [facility] [place] [address] Care Team Providers Name Role Phone Denise Darnell MD Primary Care Provider Reason for Referral Physical Therapy (Routine) - Complete - Patient Will Schedule External Appt Specialty Diagnoses / Procedures Referred By Contact Refer red To Contact Physical Therapy Diagnoses Arthritis of knee, right Ashish Sifuentes, JESUS ALBERTO [facility] [place] [address] Referral ID Status Reason Start Expiration Visits Visits Date Date Requested Authorized [id number] Complete - Evaluate and 05/24/2011 11/20/2011 1 1 Patient Will Treat Schedule External Appt Reason for Visit Reason Comments Right Knee Pain Encounter Details Date Type Department Care Team Description 05/24/2011 Office Visit Orthopaedics at [facility] Tim Gonzales, Arthritis of knee, [facility] MD hightower (Primary Dx) [place] [address] CENTER [phone] ORTHOPAEDIC SURGERY [place], [place] [address] Social History Tobacco Use Types [...] Sign Reading Time Taken Comments Blood Pressure 131/79 05/24/2011 7:47 AM EDT Pulse 75 05/24/2011 7:47 AM EDT Temperature - - Respiratory Rate - - Oxygen Saturation - - Inhaled Oxygen Concentration - - Weight 143.3 kg (315 lb 14.4 05/24/2011 7:47 AM EDT oz) Height 175.3 cm (5' 9) 05/24/2011 7:47 AM EDT pt state d Body Mass Index 46.65 05/24/2011 7:47 AM EDT documented in this encounter Progress Notes Tim Gonzales MD - 05/24/2011 8:31 AM EDT I saw this patient in conjunction with JESUS ALBERTO Keen, today. Please see his note for details of the history and physical examination. In short, Ms. Singleton is a 36-year-old female with obesity and right knee pain. She has radiographic and clinical exam findings consistent with osteoarthritis of the right knee, most significant in the medial and patellofemoral compartments. We had a discussion with her today regarding the treatment options for this problem. I suggested that weight reduction could be very helpful with her knee symptoms and also prolonging the lifetime need of joint. I have recommended a lateral heel wedge to try and offload her medial compartment as well as physical therapy. She will view the shared decision making video to better understand her treatment options and start taking an antiinflammatory medication. We will plan on seeing her back on an as needed basis depending on the progression of her symptoms. I explained the importance of trying to prolong the length of her knee and avoid operative interventions at this point as long as we can. Ashish Sifuentes PA - 05/24/2011 8:31 AM EDT This is a pleasant 36 year old here today to discuss her right knee. It has been painful intermittently for a number of years, but has become a bit more consistent over the last few years. She works [employer] and stands for 8-10 a day when she works, her pain is worse at the end of the day. She points to the medial and lateral aspects of the knee as the most painful. She does feel that the knee isswollen occasionally. She denies any specific injury, she denies any mechanical symptoms. She is 10 months out from a delivery of her 4th child. She is no longer breast feeding. She has hypothyroid, and reflux, otherwise healthy. She is anxious to begin feeling better, and to lose some weight. She has recently joined a gym. O: I have made the following determinations: Knee Exam: Right Prior surgery on this joint: No Gait Abnormality: Normal Knee ROM: Extension:5 Flexion: 115 Alignment: 0-4 degrees Neutral Stability: A/P Translation <5mm. Varus (lateral stability) <5mm Valgus (medial stability) <5mm Extension La degrees or less Radiographic evidence of joint damage: [0= normal; 1=minimal ; 2= some osteophytes , some narrowing ; 3= moderate osteophytes, significant narrowing, mild deformity; 4= large osteophytes, marked narrowing, obvious deformity]: 2= some osteophytes, some narrowing Patella Tracking: Normal Skin Integrity: Normal Pulses Palpable: Right PT: Yes Right DP:Yes Motor/Sensory: Distal Motor: Normal Distal Sensory: Normal Quadriceps Strength: 4 No effusion, Neg medial/lateral JL tenderness, Neg Mcmurrays, Neg Steinmans, Neg ant/post drawer signs. XR show moderate medial joint space narrowing, mild lateral compartment disease. A: Right knee OA P: Both Dr Gonzales and I had the chance to evaluate the pt today, we reviewed her findings and her options at length. Her exam is most consistent with her right knee OA. We will have her picking table worker the SDMvideo. We will start her on Mobic 7.5 mg BID. We will have her touch base with a PTto establish an HEP. We also fit her for a lateral heel wedge. If these things are unsuccessful, we may consider injections of cortisone or synvisc, or the use of an batting machine operator insulation brace. She understands that at some point a TKA may be part of her treatment, but given her young age, we would like to hold off for as long as possible. She is comfortable with this approach, follow up in 3 months or as needed. documented in this encounter Plan of Treatment Scheduled Referrals Name Type Priority Associated Diagnoses Order S chedule REFERRAL TO Outpatient Referral Routine Arthritis of knee, Or dered: PHYSICAL THERAPY right 05/24/2011 documented as of this encounter Visit Diagnoses Diagnosis Arthritis of knee, right - Primary Unspecified arthropathy, lower leg documented in this encounter Care Teams Distribution System Operator Relationship Specialty Start Date End Date Denise Darnell MD PCP - General 01/27/10 08/29/11 [facility] [place] [address] documented as of this encounter
--- OUTSIDE RECORDS SUMMARY | 2021-12-17 15:09 | XMS_ITS | Encounter Summary ---
:1975 Author Organization [facility] [place] [address] Care Team Providers Name Role Phone Denise Darnell MD Primary Care Provider Encounter Details Date Type Department Care Team Description 06/23/2010 Office Visit Obstetrics and Gynec ology at [facility], DR RONQUILLO [facility] [place] [address] Social History Tobacco Use Types Packs/Day [...] on filedocumented in this encounter Care Teams Instrument Engineer Relationship Specialty Start Date End Date Denise Darnell MD PCP - General 01/27/10 08/29/[address] [facility] [address] [place] [address] documented as of this encounter
--- OUTSIDE RECORDS SUMMARY | 2021-12-17 15:09 | XMS_ITS | Encounter Summary ---
:1975 [place] [address] Care Team Providers Name Role Phone Denise Darnell MD Primary Care Provider Reason for Visit Reason Comments Routine Visit NST Encounter Details Date Type Department Care Team Description 07/03/2010 Routine Obstetrics and Renae Oneil, [place]: 38w0d Gynecology at [facility] [address] [place] [address] OBSTETRICS & [phone] GYNECOLOGY [place] [phone] (Wo rk) Social History Tobacco Use Types Packs/Day Years Used Date Former Smoker Cigarettes 2 Comments: quits during Alcohol Use Standard Drinks/Week Comments No 0 (1 standard drink = 0.6 oz pure alcoho l) Sex Assigned at Date Recorded Female 05/09/2020 7:27 PM EST documented as of this encounter Last Filed Vital Signs Vital Sign [place] Time Taken Comments Blood Pressure 124/68 07/03/2010 9:16 AM EDT Pulse - - Temperature - - Respiratory Rate - - Oxygen Saturation - - Inhaled Oxygen Concentration - - Weight 152.4 kg (336 lb) 07/03/2010 9:16 AM EDT Height - - Body Mass Index 49.62 06/03/2010 3:41 PM EDT documented in this encounter Progress Notes Renae Oneil MD - 07/03/2010 11:52 AM EDT Overall feeling well. Reasonable glycemeic control, with some increased fasting and post-lunch values. Plan to increase NPH 16 units am, 19 units pm. Ultrasound today: 3952g (8lb 11oz), normal fluid. NST reactive. Reports good movement, minimal contractions. No ROM/VB. RTC for semiweekly NST. IOL scheduled 07/10/2010, at 39+0 weeks EGA. documented in this encounter Plan of Treatment Not on filedocumented as of this encounter Visit Diagnoses Diagnosis DM type 2 (diabetes mellitus, type 2) - Primary Type II or unspecified type diabetes jose litus without mention of complication, not stated as uncontrolled Type 2 diabetes mellitus complicating pr egnancy, antepartum Diabetes mellitus, antepartum macrosomia in , antepartu m Excessive growth affecting managem ent of mother, antepartum documented in this encounter Care Teams Employment Representative Relationship Specialty Start Date End Date Denise Darnell MD PCP - General 01/27/10 08/29/11 [facility] [place] [address] documented as of this encounter
--- OUTSIDE RECORDS SUMMARY | 2021-12-17 15:09 | XMS_ITS | Encounter Summary ---
:1975 Author Organization [facility] [address] Care Team Providers Name Role Phone Denise Darnell MD Primary Care Provider Encounter Details Date Type Department Care Team Description 05/24/2011 [facility] En[place] [facility] [place] pain [address] [place] [address] Social History Tobacco Use Types Packs/Day [...] 1 tablet by 0 tablet mouth daily. acetaminophen (TYLENOL Take 650 mg by 0 10/18/2016 ARTHRITIS PAIN) 650 mg CR mouth every 8 hours tablet as needed. Do not exceed 6 tabs in 24 hours meloxicam (MOBIC) 7.5 mg Take 1 tablet by 60 tablet 2 05/2307/16/2011 tabletIndications: mouth 2 times daily Arthritis of knee, right (with meals). cholecalciferol, Vitamin Take 1 tablet by 0 04/0207/16/2011 D3, 400 unit tablet mouth daily. levothyroxine (SYNTHROID) Take 1 tablet by 30 tablet 5 05/0 11/201007/16/2011 125 mcg tablet mouth daily. Pantoprazole (PROTONIX) 40 40 mg, PO, Once 0 03/2 06/2010 07/16/2011 mg SuDR daily documented as of this encounter Plan of Treatment Not on filedocumented as of this encounter Procedures Procedure Name Priority Date/Time Associated Diagnosis Comme nts XR JOINT TEAM Routine 05/24/2011 7:29 AM Right knee pain Resul ts for this ALIGNMENT AP LAT EDT procedure a re in [place] [facility] the results section. documented in this encounter Results XR JOINT TEAM ALIGNMENT [...] leg documented in this encounter Care Teams Shear Tender Relationship Specialty Start Date End Date Denise Darnell MD PCP - General 01/27/10 08/29/11 [facility] [place] [address] documented as of this encounter
--- OUTSIDE RECORDS SUMMARY | 2021-12-17 15:09 | XMS_ITS | Encounter Summary ---
:1975 Author Organization [facility] [place] [address] Care Team Providers Name Role Phone Denise Darnell MD Primary Care Provider Encounter Details Date Type Department Care Team Description 07/16/2010 Hospital Encounter Birthing Robby Nicole, Assessment Unit [place] [address] OBSTETRICS & [phone] GYNECOLOGY [place] [address] (Wo rk) Social History Tobacco Use Types [...] on filedocumented in this encounter Care Teams Auto Parts Delivery Driver Relationship Specialty Start Date End Date Denise Darnell MD PCP - General 01/27/10 08/29/11 [facility] GENER[place] [address] documented as of this encounter
--- OUTSIDE RECORDS SUMMARY | 2021-12-17 15:09 | XMS_ITS | Encounter Summary ---
:1975 Author Organization [facility] [place] [address] Care Team Providers Name Role Phone Denise Darnell MD Primary Care Provider Reason for Visit Reason Onset Date Comments Medication Refill 05/14/2011 Encounter Details Date Type Department Care Team Description 05/14/2011 Refill Obstetrics and Gynecology at Sarath Ignacio MD [facility] [address] OBSTETRICS & [place] [address] [place] [address] [phone] Social History Tobacco Use Types Packs/Day Years [...] filedocumented in this encounter Care Teams Concrete Placement Equipment Operator Relationship Specialty Start Date End Date Denise Darnell MD PCP - General 01/27/10 08/29/[address] [facility] [address] [place] [address] documented as of this encounter
--- OUTSIDE RECORDS SUMMARY | 2021-12-17 15:09 | XMS_ITS | Encounter Summary ---
:1975 Author Organization [facility] [place] [address] Care Team Providers Name Role Phone Denise Darnell MD Primary Care Provider Reason for Visit Reason Comments Routine Visit nst Encounter Details Date Type Department Care Team Description 06/23/2010 Procedure visit Obstetrics and Gynecology Marcus Beverly RN at [facility] [place] [address] Social History Tobacco Use Types Packs/Day Years Used Date Former Smoker Cigarettes 2 Comments: quits during Alcohol Use Standard Drinks/Week Comments No 0 (1 standard drink = 0.6 oz pure alcoho l) Sex Assigned at Date Recorded Female 05/09/2020 7:27 PM EST documented as of this encounter Last Filed Vital Signs Vital Sign [place] Time Taken Comments Blood Pressure 122/72 06/23/2010 8:54 AM EDT Pulse - - Temperature - - Respiratory Rate - - Oxygen Saturation - - Inhaled Oxygen Concentration - - Weight 148.4 kg (327 lb 1.6 oz) 06/23/2010 8:54 AM EDT Height - - Body Mass Index 48.3 06/03/2010 3:41 PM EDT documented in this encounter Plan of Treatment Not on filedocumented as of this encounter Visit Diagnoses Not on filedocumented in this encounter Care Teams Loan Interviewer Mortgage Relationship Specialty Start Date End Date Denise Darnell MD PCP - General 01/27/10 08/29/[address] [facility] [address] [place] [address] documented as of this encounter
--- OUTSIDE RECORDS SUMMARY | 2021-12-17 15:09 | XMS_ITS | Encounter Summary ---
:1975 Author Organization [facility] [place] [address] Care Team Providers Name Role Phone Denise Darnell MD Primary Care Provider Reason for Visit Reason Comments Suture / Staple Removal Encounter Details Date Type Department Care Team Description 07/15/2010 Office Visit Obstetrics and Vimal Beverly, Encounter for removal Gynecology at [facility] RN of sutures (Primary [facility] Dx) [place] [id number] Social History Tobacco Use Types Packs/Day Years [...] Pressure - - Pulse - - Temperature 36.8 ??C (98.3 ??F) 07/15/2010 3:25 PM EDT Respiratory Rate - - Oxygen Saturation - - Inhaled Oxygen Concentration - - Weight - - Height - - Body Mass Index - - documented in this encounter Progress Notes Vimal Beverly, RN - 07/15/2010 3:25 PM EDT Patient seen today for staple removal following repeat c/s 6 days ago. Patient here today with baby,Tone. Patient reports feeling well, breast feeding is going well. D/T jaundice patient has been told to increase Number of times she is breast feeding. Evita is staying with the baby's fatherfor the rest of the week so he can help with taking care of baby Tone. Evita has met with [facility] volunteer since hospital discharge. Incision is clean and intact. Area above incision has large area of ecchymosis, is not tender to touch (patient admits she has little feeling in that area d/t surgery), warm to touch. There is change in color from the burising that includes yellow and green. Of some concern is possible redness in thisarea also. Dr. Jett in to see patient and plan is to f/u with visit on Tuesday, 07/17. Patient agreedto plan. Kavya removed without difficulty, steri strips applied, ends well approximated. documented in this encounter Plan of Treatment Not on filedocumented as of this encounter Visit Diagnoses Diagnosis Encounter for removal of sutures - Prima ry documented in this encounter Care Teams Car Cleaning Supervisor Relationship Specialty Start Date End Date Denise Darnell MD PCP - General 01/27/10 08/29/[address] [facility] [address] [facility] [place] [address] documented as of this encounter
--- OUTSIDE RECORDS SUMMARY | 2021-12-17 15:09 | XMS_ITS | Encounter Summary ---
:1975 Author Organization [facility] [place] [address] Care Team Providers Name Role Phone Denise Darnell MD Primary Care Provider Reason for Visit Reason Comments Follow-up Encounter Details Date Type Department Care Team Description 07/16/2011 Follow-Up Internal Medicine at Mellissa Meza Obe sity (Primary Dx); [facility] TRANSMISSION ASSEMBLER GERD (gastroesophageal reflux disease); [facility] [place] [phone] GENERAL INTERNAL [phone] MEDICINE [place], [place] [address] (Wo rk) Social History Tobacco [...] Sign Reading Time Taken Comments Blood Pressure 122/74 07/16/2011 2:57 PM EDT Pulse 75 07/16/2011 2:57 PM EDT Temperature 36.7 ??C (98.1 ??F) 07/16/2011 2:57 PM EDT Respiratory Rate - - Oxygen Saturation - - Inhaled Oxygen Concentration - - Weight 145.2 kg (320 lb) 07/16/2011 2:57 PM EDT Height 175.3 cm (5' 9) 07/16/2011 2:57 PM EDT Body Mass Index 47.26 07/16/2011 2:57 PM EDT documented in this encounter Progress Notes Mellissa Meza APRN - 07/16/2011 3:48 PM EDT Subjective: Patient ID: Evita Singleton is a 36 y.o. female. HPI Ms. Singleton is new to me here for follow up of obesity and DM. She does not check her blood sugars at home but last check in March her sugar was good. No poly dipsia or poly uria. She has not been success in weight reduction with feeling hungry all the time and trying to be active but has knee pain. She is doing the exercises given by physical therapy and will start pool therapy soon. Has not started calorie counting. 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 Review of Systems Constitutional: Negative for fever, chills, activity change, appetite change and fatigue. Respiratory: Negative for cough and shortness of breath. Cardiovascular: Negative for chest pain and palpitations. Gastrointestinal: Negative for abdominal pain, diarrhea and constipation. Genitourinary: Negative for dysuria. Objective: Physical Exam Vitals reviewed. Constitutional: She appears well-developed and well-nourished. Cardiovascular: Normal rate and regular rhythm. Pulmonary/Chest: Effort normal and breath sounds normal. Assessment and Plan: Evita was seen today for follow-up of obesity and DM. Gave patient information on [employer] web page for calorie counting and Fit well. Continue activities, when knee improves increase activity with some aerobic exercise. Follow up in one month. Diagnoses and associated orders for this visit: Obesity - TSH; Future - Hemoglobin A1c; Future - levothyroxine (SYNTHROID) 125 mcg tablet; Take 1 tablet by mouth daily. - Hemoglobin A1c Gerd (gastroesophageal reflux disease) - Pantoprazole (PROTONIX) 40 mg SuDR; Take 40 mg by mouth daily. Asthma - Pneumococcal polysaccharide vaccine 23-valent greater than or equal to 2yo subcutaneous/IM Other Orders - naproxen (NAPROSYN) 250 mg tablet; Take 1 tablet by mouth 2 times daily (with meals). - Cancel: TSH documented in this encounter Plan of Treatment Not on filedocumented as of this encounter Procedures Procedure Name Priority Date/Time Associated Diagnosis Comme nts HEMOGLOBIN A1C Routine 07/16/2011 3:45 PM Obesity Results for this EDT procedure are i n the results section . documented in this encounter Results Hemoglobin A1c (07/16/2011 3:45 PM EDT) P athologist Signature Hemoglobin A1C 5.8 4.3 - 6.1 CERNER % MILLENNIUM Est Avg Gluc 120 mg/dL CERNER MILLENNIUM Comment: eAG equivalents for [...] available on e ADA website: ??http://professional.diabetes.org/gluc osecalculator.aspx Reference: Angelo MULLEN, Ariel J, Bill R, et al. ??Tr anslating the A1C assay into estimated average glucose values. ??Diabetes Care 2008:31(8):9640-7095. Specimen Anatomical Collection Method Collection Time Receive d Time (Source) Location / / Volume Laterality Blood specimen 07/16/2011 3:45 PM 012 3:54 (specimen) EDT PM EDT Resulting Agency Comment Spec In Lab Shae Elmore MD CHEMISTRY ORDERABLES Performing Organization Address City/State/[place] [address] [facility] documented in this encounter Visit Diagnoses Diagnosis Obesity - Primary Obesity, unspecified GERD (gastroesophageal reflux disease) Esophageal reflux Asthma Unspecified asthma documented in this encounter Care Teams Retail Shift Supervisor Relationship Specialty Start Date End Date Denise Darnell MD PCP - General 01/27/10 08/29/11 [facility] GENER[facility] [place] [address] documented as of this encounter
--- OUTSIDE RECORDS SUMMARY | 2021-12-17 15:09 | XMS_ITS | Encounter Summary ---
:1975 Author Organization [facility] [place] [address] Care Team Providers Name Role Phone Denise Darnell MD Primary Care Provider Reason for Referral Physical Therapy (Routine) - Complete - Patient Will Schedule External Appt Specialty Diagnoses / Procedures Referred By Contact Refer red To Contact Physical Therapy Diagnoses Knee pain, right Tim Gonzales MD [facility] [place] [address] Referral ID Status Reason Start Expiration Visits Visits Date Date Requested Authorized [id number] Complete - Evaluate and 07/07/2011 01/03/2012 1 1 Patient Will Treat Schedule External Appt Encounter Details Date Type Department Care Team Description 07/07/2011 Orders Only Orthopaedics at [facility] Tim Gonzales MD Knee pain, right [facility] (Pr imary Dx) [place] [address] ORTHOPAEDIC [phone] SURGERY [place], [place] [address] Social History Tobacco Use Types [...] S chedule REFERRAL TO Outpatient Referral Routine Knee pain, right Orde red: PHYSICAL THERAPY 07/07/2011 documented as of this encounter Visit Diagnoses Diagnosis Knee pain, right - Primary Pain in joint, lower leg documented in this encounter Care Teams Senior Architectural Designer Relationship Specialty Start Date End Date Denise Darnell MD PCP - General 01/27/10 08/29/[address] [facility] [address] [facility] [place] [address] documented as of this encounter
--- OUTSIDE RECORDS SUMMARY | 2021-12-17 15:09 | XMS_ITS | Encounter Summary ---
:1975 Author Organization [facility] [place] [address] Care Team Providers Name Role Phone Denise Darnell MD Primary Care Provider Reason for Visit Reason Comments Nutrition Counseling Encounter Details Date Type Department Care Team Description 07/20/2010 Office Visit Obstetrics and Berenice Bermeo (infant) Gynecology at [facility] MOON Hernandez (Primary Dx) [place] [address] Social History Tobacco Use Types Packs/Day Years Used Date Former Smoker Cigarettes 2 Comments: quits during Alcohol Use Standard Drinks/Week Comments No 0 (1 standard drink = 0.6 oz pure alcoho l) Sex Assigned at Date Recorded Female 05/09/2020 7:27 PM EST documented as of this encounter Progress Notes Berenice Bermeo LD - 07/20/2010 11:26 AM EDT Nutrition Education Evita Singleton is being seen on July 20, 2010 Patient Concerns: and Nutrition. Pt is concerned she is not eating a balanced diet while infant. Diet-Usual Daily Intake Breakfast: skips Snack:skips Lunch:sandwich Dinner: meat, pasta Snack: varies Main Beverages: water, milk Appetitie: good-improving. Pt reports low following Allergies:none Physical Activity: no regular activity Estimated Energy Needs: 1800 kcals Estimated Protein Needs: 80-90 grams Clinical Nutrition Deficiency: none Other Concerns affecting nutrition intake/status: food access, uses WIC and food cornelius Assessment: Pt here today to discuss nutrition and . Discussed a healthy diet with low cost options. Infant with mom today and . Mother reports her milk is coming in slowly and is being follow by consultants and shoe handler. Pt lives alone and we discussed meal ideas that are quick and easy and meals including protein, fruits and vegetables. Pt has some food access issues and has met with SW who has helped her find food cornelius and help in her area. Education: Nutrition During documented in this encounter Plan of Treatment Not on filedocumented as of this encounter Visit Diagnoses Diagnosis () - Primary Other specified conditions influencing h ealth status documented in this encounter Care Teams Mechanical Equipment Sales Engineer Relationship Specialty Start Date End Date Denise Darnell MD PCP - General 01/27/10 08/29/11 [facility] GENERAL [place] [address] documented as of this encounter
--- OUTSIDE RECORDS SUMMARY | 2021-12-17 15:09 | XMS_ITS | Encounter Summary ---
:1975 Author Organization [facility] [place] [address] Care Team Providers Name Role Phone Denise Darnell MD Primary Care Provider Reason for Visit Reason Comments Routine Visit Encounter Details Date Type Department Care Team Description 07/07/2010 Office Visit Obstetrics and Leticia Jett MD Diabetes mellitus type 2 in obese; Gynecology at [facility] ; [facility] DR Hypothyroidism; [facility] OBSTETRICS & Obesity; [place], [place] GYNECOLOGY AMA (advanced maternal age) multigravida 35+; [id number] [place] [address] Depression; [phone] Previous arturo an delivery, antepartum condition or complication; (Work) GERD (gastroesophageal reflux disease); Hyperlipi demia; failu re, antepartum; Hypertension; macrosomi a Social History Tobacco Use Types Packs/Day Years Used Date Former Smoker Cigarettes 2 Comments: quits during Alcohol Use Standard Drinks/Week Comments No 0 (1 standard drink = 0.6 oz pure alcoho l) Sex Assigned at Date Recorded Female 05/09/2020 7:27 PM EST documented as of this encounter Progress Notes Leticia Jett MD - 07/07/2010 11:55 AM EDT H&P for CS documented in this encounter H&P Notes Leticia Jett MD - 07/07/2010 11:32 AM EDT Obstetrical Term Admission Note Evita Singleton is a 35 y.o. year old female with an PAOLA of 07/17/2010, Alternate PAOLA Entry, who is at 38w4d weeks gestation being admitted for C- section. Had a prior CS for twins. Type 2 diabetes fairly well controlled on bid insulin, Recent US EFW in 95th percentile General ROS Review of Systems Obstetric ROS Total Weight Gain this Not found. Movement: normal Contractions: none Leaking: None Bleeding; none now Preeclampsia signs and symptoms: None Active Problems There are no hospital problems to display for this patient. Active Non-Hospital Problems Diagnoses ??? Diabetes mellitus type 2 in obese Priority: High ??? Priority: High ??? Hypothyroidism Priority: High ??? Obesity Priority: High ??? AMA (advanced maternal age) multigravida 35+ Priority: Medium ??? Depression Priority: Medium ??? Previous delivery, antepartum condition or complication Priority: Low ??? GERD (gastroesophageal reflux disease) Priority: Low ??? Hyperlipidemia Priority: Low ??? failure, antepartum ??? Hypertension ??? macrosomia Past Medical History Past Medical History Diagnosis Date ??? Diabetes mellitus type 2 in obese stopped Metformin 05/2009 ??? Hypothyroidism 2001 on meds prior to ??? Depression ??? Anxiety disorder ??? GERD (gastroesophageal reflux disease) On medication ??? Obesity BMI 44 mg/kg2 ??? Previous section Interested in ??? GERD (gastroesophageal reflux disease) ??? Hypertension Meds stopped in 2009 ??? Hx of migraines Past Surgical History Past Surgical History Procedure Date ??? Created by interface SURGICAL EXTRACTIONS,REMOVAL OF IMPACTED TOOTH,PARTAILLY Procedure Date: 01/01/2009 ??? Cholecystectomy 2005 ??? section 12/1999 twins OB History OB History Grav Para Term Abortions TAB SAB Ect Mult Living 3 2 2 0 0 0 0 0 1 3 # Outc Date GA Lbr Pk/2nd Wgt Sex Del Anes PTL Lv 1 TRM 39w0d 05:00 4.252kg(9lb6oz) M None No Yes 2A TRM 40w0d 3.005kg(8sa75qs) M LTCS Spinal No Yes Comments: Twin A Breech 2B 40w0d 3.118kg(6xh22mv) M LTCS Spinal No Yes 3 CUR Prior to Admission Medications (Not in a hospital admission) Allergies Allergies Allergen Reactions ??? Latex Anaphylaxis ??? 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 Smoking status: Former Smoker -- 2.0 packs/day Types: Cigarettes ??? Smokeless tobacco: Not on file Comment: quits during ??? Alcohol Use: No ??? Drug Use: No ??? Sexually Active: Yes -- Male partner(s) Relevant Immunizations Immunization History Administered Date(s) Administered ??? Influenza Whole 01/25/2008, 01/05/2010 Last Set of Vitals: LMP 10/21/2009 Physical Exam Constitutional: She is oriented to person, place, and time. She appears well-developed. HENT: Head: Normocephalic. Eyes: Conjunctivae are normal. Neck: Normal range of motion. Cardiovascular: Normal rate, regular rhythm and normal heart sounds. Pulmonary/Chest: Effort normal and breath sounds normal. Abdominal: Soft. Bowel sounds are normal. Morbidly obese with overlapping pannus Genitourinary: Vagina normal. Musculoskeletal: Normal range of motion. Neurological: She is alert and oriented to person, place, and time. She has normal strength. Skin: Skin is warm and dry. Psychiatric: She has a normal mood and affect. Her speech is normal and behavior is normal. Pelvis: average Heart Rate Interpretation: Uterine Size: Unable to assess due to obesity Presentations: Unsure by physical exam, cephalic by bedside ultrasound Cervix: Closed, long, floating, no presenting part in the pelvis Rachel Score 0 Clinical EFW: unable to assess Lab Review Recent Labs Basename 06/01/10 1400 05/31/10 1420 05/05/10 1615 05/01/10 0749 04/11/10 0937 02/16/10 1243 12/17/09 1231 12/17/09 1215 12/17/09 1130 12/17/09 0932 ??? ABORH -- -- -- -- -- -- -- -- -- A Pos ??? HEPBDNAQUANT -- -- -- -- -- -- -- -- -- -- ??? HCT -- 33.5* -- 35.1 34.4 -- -- -- -- 38.9 ??? HGB -- 10.8* -- 11.6 11.3 -- -- -- -- 12.6 ??? MCV -- 91.8 -- 90.5 90.5 -- -- -- -- 89.8 ??? RUBLIGG -- -- -- -- -- -- -- -- -- Positive ??? URINECULTURE -- -- -- -- -- -- -- -- Patient Name: EVITA SINGLETON Ordered By: CYNDI LAWRENCE MR#: [id number] LOC: 5L /Sex: 1975 (34 years), Female PROCEDURE: Urine Culture SOURCE: T CC COLLECTED: 12/17/2009 11:30 STARTED: 12/17/2009 17:51 FINAL REPORT Final Report Verified:12/18/2009 15:04 1,000-9,000 cfu/ml mixed mucosal wendi -- ??? HIV12 -- -- -- -- -- -- -- -- -- Negative ??? TSH -- -- 2.81 -- 4.18 6.07* -- -- -- -- ??? GCAMP -- -- -- -- -- -- -- Negative -- -- ??? CHLMGENE -- -- -- -- -- -- -- Negative -- -- ??? GLUCFASTING -- -- -- -- -- -- -- -- -- -- ??? OYMX1DJ -- -- -- -- -- -- 115 -- -- -- ??? HA1C -- -- 5.6 -- -- -- -- -- -- -- ??? [id number] 0.14 -- -- -- -- -- -- -- -- -- ??? W08TPTDG -- -- -- -- -- -- -- -- -- -- ??? AST -- 11 -- -- -- -- -- -- -- -- ??? ALT -- -- -- -- -- -- -- -- -- -- ??? URICACID -- -- -- -- -- -- -- -- -- -- Recent Labs Basename 02/16/10 1235 01/05/10 1317 12/17/09 1045 ??? IST1 -- -- -- ??? IST2 -- -- -- ??? SEQ1 -- -- -- ??? SEQ2 -- -- -- ??? AFPMS Screen Negative -- -- ??? TRIM1 -- Screen Negative -- ??? AFP4 -- -- -- ??? CFREPORT -- -- Patient Name: EVITA SINGLETON Ordered By: ELEANOR NELSON MR#: [id number] LOC:5L /Sex: 1975 (34 years), Female Genetics [phone] Final Report Accession Number: [id number] Cystic Fibrosis Mutation Analysis INDICATION FOR STUDY: Carrier testing; no family history. Ethnicity: ANALYSIS: Examination of DNA extracted from peripheral blood leukocytes for 41 mutations in the Cystic Fibrosis transmembrane conductance regulator (CFTR) gene. Results: Negative for the 41 mutations tested. Interpretation: It is our understanding that this individual has a negative pe rsonal and family history for cystic fibrosis (CF). Using the CFTR InPlex assay, this individual is negative for the 41 mutations tested, including the 23 mutations recommended for screening by the [employer]. These results do not rule out the possibility that this individualcould be a carrier of a mutation not detected by this test. This interpretation is based on the clinical information provided and the current understanding of this disease. While DNA testing is very accurate, rare diagnostic errors due to various pre- and post-analytical variables do occur. Comments: A negative test result significantly reduces, but does not eliminate, the risk of being a carrier or h aving a child with CF. See table below. Ethnic Group --*1-- --2*-- Ashkenazi Uatsdin 04/04 to 95% 04/04 to 90% to 67% Stateless to 76% Stateless to 61% * 1 = Carrier risk reduction with no family history, 2 = Detection Rate Methods: Genomic DNA was extracted from the submitted peripheral blood specimen using the Qiagen [employer] Bio[employer]ot. The DNA was enzymatically digested Patient: EVITA SINGLETON MR#: [id number] and analyzedfor mutation status by using signal amplification probes to test for the presence of the following mutations/polymorphisms to the CFTR gene using the CFTR InPlex assay.([facility], [place], [place]):1717-1G>A, 1898+1G>A, 2184delA, 2789+5G>A, 3120+1G>A, 3659delC, 3849+10kbC>T, 621+1G>T, 711+1G>T, A455E, G542X, G551D, G85E, L0378X, E7661D, R117H, R334W, R347P, R553X, R560T, X4690L, delta F508,fcozzV893, 1078delT, 2183delAA>G, 3849+4A>G, 3876delA, 3905insT,394delTT, N2789Z, M4193G, E60X, Q493X, R347H,S549N, S549RA>C, S549RT>G, V520F, D4019GS>A, M0680DI>G, and Y122X. Reflex testing: I148T, F508C, IVS8-5T, IVS8-7T, IVS8-9T. This test was developed and its performance determined by the Molecular Pathology Laboratory at the [facility]. It has not been cleared or approved by the U.S. Food and Drug Administration. This test is used for clinical purposes and should not be considered as investigational or for research purposes. The Molecular Pathology Laboratory is certified by the Clinical Laboratory Improvement Act of 1988 and as such is allowed to perform high complexity clinicaltesting. References: 1. ACOG/ACMG. Preconception and carrier screening for cystic fibrosis.2001, pp.1-31. 2. Michi HERNANDEZ et al., Genetics in Medicine 2002;4:379-391. Reviewed by: Trisha Teague MD Sanforizer, Molecular Pathology Note: I have reviewed the results of this test and agree with the above interpretation. (LJT) Most Recent Ultrasound Date: 07/03/10 Growth large for gestational age Amniotic fluid volumenormal Placenta posterior Presentation vertex Assessment ?? 35 y.o. year old female with an 07/17/2010, Alternate PAOLA Entry who is at 38w4d weeks gestation being admitted for . Labor State: Not in labor. GBS/Rh/HIV Status ?? GBS: negative ABORh Type Date Value Range Status 12/17/2009 A Pos - (no units) Final HIV 1/2 Ab Date Value Range Status 12/17/2009 Negative - (no units) Final ?? Additional medical and obstetrical issues: Diabetes, obesity, hypothyroidism, chronic hypertension, GERD, Depression Plan: Labor management: admit for RCS Additional issues: ?? See above Will be NPO after midnight, hold insulin and other meds in the morning Instructed to shower with antibacterial soap x 2 and not shave. LETICIA JETT 07/07/2010 documented in this encounter Plan of Treatment [...] Depression Depressive disorder, not elsewhere class ified Previous delivery, antepartum c ondition or complication GERD (gastroesophageal reflux disease) Esophageal reflux Hyperlipidemia Other and unspecified hyperlipidemia failure, antepartum Failure of , antepartum conditi on or complication Hypertension Unspecified essential hypertension macrosomia Excessive growth affecting managem ent of mother, antepartum documented in this encounter Care Teams Grinder Set Up Operator Surface Relationship Specialty Start Date End Date Denise Darnell MD PCP - General 01/27/10 08/29/11 [facility] [place] [address] documented as of this encounter
--- OUTSIDE RECORDS SUMMARY | 2021-12-17 15:09 | XMS_ITS | Encounter Summary ---
:1975 Author Organization [place] [address] Care Team Providers Name Role Phone Denise Darnell MD Primary Care Provider Reason for Referral Physical Therapy (Routine) - Closed Specialty Diagnoses / Procedures Referred By Contact Refer red To Contact Physical Therapy Diagnoses Impingement syndrome, shoulder Enrique Recinos MD [facility] Pt Rehab [facility] D [facility] [address] [place] [address] [place] [address] Referral ID Status Reason Start Date Expiration Date Visits V isits Requested Authorized [id number] Closed Evaluate and 09/01/2010 02/28/2011 1 1 Treat Reason for Visit Reason Comments Annual Exam Encounter Details Date Type Department Care Team Description 09/01/2010 Office Visit Internal Medicine at Enrique Recinos Hy pothyroid; [facility] [place] (diabetes mellitus); [facility] Imp ingement syndrome, shoulder Drive [address] [place] [facility] [phone] MEDICINE [phone] [place], [place] [address] (Wo rk) Social History Tobacco [...] Sign Reading Time Taken Comments Blood Pressure 128/66 09/01/2010 10:20 AM EDT Pulse 59 09/01/2010 10:20 AM EDT Temperature 36.7 ??C (98.1 ??F) 09/01/2010 10:20 AM EDT Respiratory Rate 18 09/01/2010 10:20 AM EDT Oxygen Saturation - - Inhaled Oxygen Concentration - - Weight 142.4 kg (314 lb) 09/01/2010 10:20 AM EDT Height 172.7 cm (5' 8) 09/01/2010 10:20 AM EDT Body Mass Index 47.74 09/01/2010 10:20 AM EDT documented in this encounter Progress Notes Enrique Recinos MD - 09/03/2010 12:55 AM EDT Subjective: Patient ID: Evita Singleton is a 35 y.o. female. HPI 35F re establishes care with GIM after and after pt was followed by [facility]yn clinic. Pt's chronic problems include HTN, DM, hypothyroidism and obesity. He was switched from Metformin to Insulin during . She restarted Metformin 2 weeks ago. Overall pt is doing pretty well. 2 years ago pt was homeless, without any medical care and loss drake 3 children to foster parents. At that point, pt has an apartment, has a job and lives with her boyfriend. She currently tries to get with her mother in contact and to get also contact to her 3 other children who are living with foster families. Pt is willing to control her DM and HTN and to loose weight. Sx No alc No tobacco No drugs PMH BMI 45 GERD, on Protonix Hypothyroidism, since 2007 on Synthroid T2DM, since 2007 on Metformin HTN, since 2007 on Cozaar Depression, on Fluoxetine h/o cholecystectomy 2006 h/o spotting in between her periods, f/u by FLOOR CARE SPECIALIST, h/o US all wnl, cortisol and testosterone wnl Review of Systems 10 point ROS negative Objective: Physical Exam BP 128/66 Pulse 59 Temp(Src) 36.7 ??C (98.1 ??F) (Oral) Resp 18 Ht 1.727 m (5' 8) Wt 142.429 kg (314 lb) BMI 47.74 kg/m2 LMP 10/21/2009 NAD HEENT MMM, no LAD CARD RRR, no mrg PULM CTAB Rest deferred 2/2 poor hygiene Assessment and Plan: 35F here for re establishing care. # HTN Currently normo tensive w/o any meds. Will no restart JOSE # DM - On metformin 500 BID. Will recheck HgbA1 c and consider to up titrate Metformin and / or to add Glipizide if needed - eye exam scheduled - foot exam deferred, will do in 2 months # hypothyroidism On replacement Will check TSH #Prevention - PAP and breast exam by Communication Specialist - vaccines up to date # RTC in 3 months No problem-specific visit notes found for this encounter. Alexis Pinto MD - 09/01/2010 11:54 AM EDT The case was discussed at the time of the visit or immediately after the visit. The assessment and plan were formulated in discussion with me and I agree with them as documented. I have reviewed the history, physical exam, assessment and plan with the resident. Major issues discussed today: 35 yo woman with morbid obesity and diabetes who recently delivered a baby and has been under the care of the higher education administrator service. She has multiple social stressors. She currently is abstinent from smoking, alcohol and drugs. She is interested in weight loss and here today for routine HCM Dr Recinos's exam today notable for: 130/66, Body mass index is 47.74 kg/(m^2). Very poor hygiene. Lungs, CV and abdomen examined. Hypertension, currently well controlled DMII. Foot exam deferred due to poor hygiene today. Will schedule fu visit - ha1c - eye appt scheduled - jose held during - counseled on diet, exercise and weight loss - rtc Hypothryoidism - tsh Post anemia - cbc RTC 3 months or prn documented in this encounter Plan of Treatment Scheduled Referrals Name Type Priority Associated Diagnoses Order S chedule REFERRAL TO Outpatient Referral Routine Impingement syndrome, Ordered: PHYSICAL THERAPY shoulder 09/01/2010 documented as of this encounter Procedures Procedure Name Priority Date/Time Associated Diagnosis Comme nts TSH Routine 09/01/2010 12:24 Hypothyroid Results for this PM EDT procedure are i n the results section. HEMOGLOBIN A1C Routine 09/01/2010 12:24 DM (diabetes Results f or this PM EDT mellitus) procedure are i n the results section. LIPID PANEL (REFLEX Routine 09/01/2010 12:24 DM (diabetes Resu lts for this DIRECT LDL) PM EDT mellitus) procedure are i n the results section. documented in this encounter Results (ABNORMAL) Lipid panel (09/01/2010 12:24 PM EDT) P athologist Signature Chol, Total 198 <=199 mg/dL SOCRATES BEARDIUM Comment: Recommendations of the NCEP Adult Treatm ent Panel for the following risk cutoff thresholds for the [place] populatio n: Desirable: <200 mg/dL Borderline High: 200-239 mg/dL High: > or = 240 mg/dL Triglycerides 171 (H) <=149 mg/dL SOCRATES BEARD M Comment: Reference Range: Normal triglycerides: ??<150 mg/dL Borderline high: ??150-199 mg/dL High: ??200-499 mg/dL Very high: ??>xh=124 mg/dL KEITH 2001; 285(19):9141-0532 HDL 44 >=40 mg/dL SOCRATES MILLBOSSMANIUM Comment: Reference range: ??Low HDL: ?? < 40 mg/dL ??Normal: ?40-60 mg/dL ??Desirable: > 60 mg/dL KEITH 2001; 285(19):3711-4926 LDL Cholesterol 120 (H) <=99 mg/dL SOCRATES NOONAN NIUM Comment: Reference range: ?? Optimal: ?<100 mg/dL ?? Near Optimal/Above Optimal: ?? 100-1 29 mg/dL ?? Borderline high: ?130-159 mg/dL ?? High: ? 160-189 mg/dL ?? Very high: ?>yz=462 mg/dL KEITH 2001: 285(19):3943-3074 Chol/HDL Ratio 4.5 ratio CEREKTA BEARDI UM Comment: A Cholesterol to HDL ratio below 4:1 is desirable. ??Studies suggest that increased CAD risk occurs at ratios abov e 5 for females and above 6 for men. ? [place] Heart Association ??(htt p://www.americanheart.org) ? Luzmaria Int Med, 1994; 121:641 ? AM J Med, 1998; 105(1A):48S Specimen Anatomical Collection Method Collection Time Receive d Time (Source) Location / / Volume Laterality Blood specimen 09/01/2010 12:24 1 (specimen) PM EDT 12:32 PM EDT M Marisa Pinto MD CHEMISTRY ORDERABLES Performing Organization Address City/State/[place] [address] CERNER MILLENNIUM Hemoglobin A1c (09/01/2010 12:24 PM EDT) athologist Signature Hemoglobin A1C 5.4 4.3 - 6.1 CERNER % MILLENNIUM Est Avg Gluc 108 mg/dL CERNER MILLENNIUM Comment: eAG equivalents for HbA1c percentages: HbA1c(%) ?eAG(mg/dL) 6.0 ?126 6.5 ?140 7.0 ?154 7.5 ?169 8.0 ?183 8.5 ?197 9.0 ?212 9.5 ?226 10.0 ? 240 Limitations: The eAG calculation has not been validated on women, individuals below 18 years old and above 70 years old, and individuals with hemoglobinopathies. Additional resources are available on [facility] ADA website: ??http://professional.diabetes.org/gluc osecalculator.aspx Reference: Angelo MULLEN, Ariel J, Bill R, et al. ??Tr anslating the A1C assay into estimated average glucose values. ??Diabetes Care 2008:31(8):5133-0060. Specimen Anatomical Collection Method Collection Time Receive d Time (Source) Location / / Volume Laterality Blood specimen 09/01/2010 12:24 1 (specimen) PM EDT 12:33 PM EDT Alexis Pinto MD CHEMISTRY ORDERABLES Performing Organization Address City/[facility]/ZIP Code Phon e Number [address] CERNER MILLENNIUM TSH (09/01/2010 12:24 PM EDT) P athologist Signature TSH 3.18 0.27 - 4.20 CERNER mcIU/mL MILLENNIUM Specimen Anatomical Collection Method Collection Time Receive d Time (Source) Location / / Volume Laterality Blood specimen 09/01/2010 12:24 1 (specimen) PM EDT 12:32 PM EDT Alexis Pinto MD CHEMISTRY ORDERABLES Performing Organization Address City/[facility] [place] [address] CERNER MILLENNIUM documented in this encounter Visit Diagnoses Diagnosis Hypothyroid Unspecified hypothyroidism DM (diabetes mellitus) Type II or unspecified type diabetes jose litus without mention of complication, not stated as uncontrolled Impingement syndrome, shoulder Other affections of shoulder region, not elsewhere classified documented in this encounter Care Teams Operations And Maintenance Specialist Relationship Specialty Start Date End Date Denise Darnell MD PCP - General 01/27/10 08/29/11 [facility] [place] [address] documented as of this encounter
--- OUTSIDE RECORDS SUMMARY | 2021-12-17 15:09 | XMS_ITS | Encounter Summary ---
:1975 Author Organization [facility] Address [address] [place] [address] Care Team Providers Name Role Phone Denise Darnell MD Primary Care Provider Reason for Visit Reason Comments Eye Exam Pt states would like Rx for both glasses & contacts. Encounter Details Date Type Department Care Team Description 11/04/2010 Office Visit Ophthalmology at [facility] Aguirre Type 2 diabetes mellitus (Primary Dx); Cheikh Javier, OD Myopia; [facility] [place] [address] CENTER [phone] [address] [place] [id number] Social History Tobacco Use Types Packs/Day Years Used Date Former Smoker Cigarettes 2 Quit: 09/30/19 10 Smokeless Tobacco: Never Used Comments: quits during Alcohol Use Standard Drinks/Week Comments No 0 (1 standard drink = 0.6 oz pure alcoho l) Sex Assigned at Date Recorded Female 05/09/2020 7:27 PM EST documented as of this encounter Progress Notes Richard Victoria, OD - 11/04/2010 11:35 AM EDT Evita Singleton is a 35 y.o. female who had a chief complaint of Eye Exam. NIDDM without retinopathy. Stable Rx. Good ocular health on today's exam. Assessment: Encounter Diagnoses Code Name Primary? 250.00CA Type 2 diabetes mellitus Yes ??? 367.1 Myopia ??? 367.20A Astigmatism Plan: 1)Refractive Error - MRx given to patient. 2)Contact lens Rx given. 3)NIDDM - pt ed re: Importance of good bs control and yearly eye exam Follow up: CEE 1 year. Eyeglass Final Rx Sphere Cylinder [place] Right -4.00 +0.50 065 Left -4.25 +1.00 125 Type: SVL Expiration Date: 11/04/2012 Final Contact Lens Rx Brand Base Curve Sphere Cylinder [place] Diameter Right AV 2 8.30 -3.75 14.0 Left SL 66 [place] 8.50 -3.50 -0.75 030 14.5 Expiration Date: 11/05/2011 Replacement: Every 2 weeks documented in this encounter Nursing Notes 11/04/2010 9:45 AM EDT >> RICHARD VICTORIA OD Wed Nov 04, 2010 11:39 AM NIDDM ~ 3 yrs. TRAVIS 09/09. Had soft contacts and wants them again. No other concerns. >> AKIRA ZAVALA TueNov 04, 2010 10:50 AM Description:Patient presents with: Abstract - Pt states would like Rx for both glasses & contacts. Location: both eye Duration: NA days Rapidity of Onset:unknown Severity: NA Condition:No Change Pain:none Associated Symptoms: none HA1C:5.4 09/01/10 documented in this encounter Plan of Treatment Not on filedocumented as of this encounter Visit Diagnoses Diagnosis Type 2 diabetes mellitus - Primary Type II or unspecified type diabetes jose litus without mention of complication, not stated as uncontrolled Myopia Astigmatism Astigmatism, unspecified documented in this encounter Care Teams Electroencephalographic Technician Relationship Specialty Start Date End Date Denise Darnell MD PCP - General 01/27/10 08/29/11 [facility] [place] [address] documented as of this encounter
--- OUTSIDE RECORDS SUMMARY | 2021-12-17 15:09 | XMS_ITS | Encounter Summary ---
:1975 [place] [address] Care Team Providers Name Role Phone Denise Darnell MD Primary Care Provider Reason for Visit Reason Onset Date Comments Patient Education 08/28/2010 Return phone call Encounter Details Date Type Department Care Team Description 08/28/2010 Telephone [place]thing [place] Leticia Taylor, Patient Education [facility] RN (Return p selene call ) [place] [address] Social History Tobacco Use Types Packs/Day Years Used Date Former Smoker Cigarettes 2 Quit: 09/30/19 10 Comments: quits during Alcohol Use Standard Drinks/Week Comments No 0 (1 standard drink = 0.6 oz pure alcoho l) Sex Assigned at Date Recorded Female 05/09/2020 7:27 PM EST documented as of this encounter Miscellaneous Notes Telephone Encounter - Leticia Vasquez RN - 08/28/2010 4:06 PM EDT Follow Up Telephone call. Reason for call: Mom Evita had called with questions re: pumping. Tone's Mom, Evita called with questions on pumping and pumping schedule in regards to returning back to work 09/17/10. Left message for her to call Clinic on Tuesday to discuss a plan. Leticia Vasquez, MICHELLEC, BSN, IBCLC Internet Sales Associate [facility] [place] documented in this encounter Plan of Treatment Not on filedocumented as of this encounter Visit Diagnoses Not on filedocumented in this encounter Care Teams Licensing Court Magistrate Relationship Specialty Start Date End Date Denise Darnell MD PCP - General 01/27/10 08/29/11 [facility] [place] [address] documented as of this encounter
--- OUTSIDE RECORDS SUMMARY | 2021-12-17 15:09 | XMS_ITS | Encounter Summary ---
:1975 Author Organization [facility] [place] [address] Care Team Providers Name Role Phone Denise Darnell MD Primary Care Provider Reason for Visit Reason Comments Diabetes Encounter Details Date Type Department Care Team Description 07/30/2010 Office Visit Endocrinology at [facility] C Kary Ashford, Diabetes (Primary Dx) [place] [address] CENTER [phone] ENDOCRINOLOGY DEPT. [place], [place] [address] Social History Tobacco Use Types [...] Sign Reading Time Taken Comments Blood Pressure 116/72 07/30/2010 2:24 PM EDT Pulse 76 07/30/2010 2:24 PM EDT Temperature - - Respiratory Rate - - Oxygen Saturation - - Inhaled Oxygen Concentration - - Weight 136.5 kg (301 lb) 07/30/2010 2:24 PM EDT Height - - Body Mass Index 44.45 06/03/2010 3:41 PM EDT documented in this encounter Progress Notes Kary Ashford APRN - 07/30/2010 3:55 PM EDT DATE OF VISIT: 07/30/2010 REASON FOR VISIT: New patient endocrinology for type 2 DM. BRIEF HISTORY: Presents with son. States she feels well. States glucose levels are usually under 80 fasting and under 100 one hour post meal. DIABETES REGIMEN: Metformin 500 mg once daily. DATE OF DIAGNOSIS OF DIABETES: 2007. Was followed at the [facility] for DM management. 24-HOUR MEAL PLAN: Desires weight loss. Plans to rejoin Tops. Breakfast is cereal, banana, or oatmeal or pancakes. Lunch is burger. Today's lunch was burger, mongolian fries, and a root beer float. Dinner was macaroni and cheese with tuna and peas. Evening snack is usually a fruit: apple, or orange. EXERCISE: Not much related to son's recent , but plans to start walking and swimming When medically cleared by OB. COMPLICATIONS: None. HABITS: Quit smoking for the , and she states she had resumed smoking after her other pregnancies, but has no cravings to resume smoking again. No alcohol use. No illicit drug use. Family history was reviewed. No relatives with diabetes. Brother has epilepsy SOCIAL HISTORY: She lives with her infant son, Has 14-year-old son and twins, 2 are in foster care, and one lives with her mother. REVIEW OF SYSTEMS: Depression and Mood: States she is doing okay. Eyes: No recent vision changes. No headaches. No chest pain. No shortness of breath. No GI symptoms. Appetite is good. Sleep Pattern: Varies. She does have sleep apnea. She states she did not use the CPAP mask because it was embarrassing when she did have a partner, now she is afraid to use it because she is a sound sleeper and she is afraid she will not hear her son if he cries. Extremities: No joint pains. No labs were done today. Hemoglobin A1c during her was 5.6%. Physical exam: Appearance: she is globally obese with very large central girth. Pleasant and talkative c good eye contact Eye: no retinopathy by green light exam Neck: no thyroidmegaly or lymphadenopathy Heart: RRR, no murmur Lungs: clear to auscultation Feet: skin is normal, pulses are normal. Neuro: normal sensation to 10 g of pressure Impression and plan: DM T2 in excellent control. Reviewed a healthy meal plan with suggestions for weight loss. Advised appointment c DAX. Pt agrees. Is looking forward to walking and swimming. Sts she weighed 250 lbs when she left high school. Sts she responds to positive reinforcement Fertility control: pt sts she will discuss c OB Of this 47 min OV, I spent 46 min counseling c pt in the following issues: natural course of T2DM, reviewing a healthy meal plan, reviewing importance of daily physical activity, reviewing target BG levels, reviewing importance of treating sleep apnea, congratulating her c tobacco cessation and advising appt jose juan VERDUZCO. RTO 10/2010 Will check fasting lipids, M/A and HGBA1C and other labs that she is due for documented in this encounter Plan of Treatment Not on filedocumented as of this encounter Results Creatinine, urine, random (03/24/2011 2:54 PM EST) P athologist Signature U Creatinine 287 mg/dL CERNER MILLENNIUM Specimen Anatomical Collection Method Collection Time Receive d Time (Source) Location / / Volume Laterality Urine specimen 03/24/2011 2:54 PM 012 3:00 (specimen) EST PM EST Kentrell Guerra MD URINE ORDERABLES Performing Organization Address City/State/ZIP Code Phon e Number [address] CERNER MILLENNIUM Microalbumin, urine, random (03/24/2011 2:54 PM EST) P athologist Signature U Creatinine 287 mg/dL CERNER MILLENNIUM U Albumin Conc, 15.4 mg/L CERNER Random MILLENNIUM Alb/Cr Ratio, 5 mcg/mg Cr CERNER Random MILLENNIUM Comment: Reference Range* Random collection (mcg/mg creatinine) Normal ?<30 Microalbuminuria ?? 30 - 300 Clinical Albuminuria ?? >300 *[place] Diabetes Association. Diabetic Nephropathy. Diabetes Care 1997;(Suppl [...] Performing Organization Address City/State/ZIP Code Phon e Devi CALLAHAN [place] [id number] CERNER MILLENNIUM (ABNORMAL) Lipid panel (fasting) (03/24/2011 2:52 PM EST) P athologist Signature Chol, Total 177 <=199 mg/dL CERNER MILLENNIUM Comment: Recommendations of the NCEP Adult Treatm ent Panel for the following risk cutoff thresholds for the [place] populatio n: Desirable: <200 mg/dL Borderline High: 200-239 mg/dL High: > or = 240 mg/dL Triglycerides 187 (H) <=149 mg/dL CERNER MILLENN IUM Comment: Reference Range: Normal triglycerides: ??<150 mg/dL Borderline high: ??150-199 mg/dL High: ??200-499 mg/dL Very high: ??>sw=655 mg/dL KEITH 2001; 285(19):2481-9878 HDL 36 (L) >=40 mg/dL CERNER MILLENNIUM Comment: Reference range: ??Low HDL: ?? < 40 mg/dL ??Normal: ?40-60 mg/dL ??Desirable: > 60 mg/dL KEITH 2001; 285(19):8170-7236 LDL Cholesterol 104 (H) <=99 mg/dL CERNER SARAN NIUM Comment: Reference range: ?? Optimal: ?<100 mg/dL ?? Near Optimal/Above Optimal: ?? 100-1 29 mg/dL ?? Borderline high: ?130-159 mg/dL ?? High: ? 160-189 mg/dL ?? Very high: ?>aa=681 mg/dL KEITH 2001: 285(19):8498-7357 Chol/HDL Ratio 4.9 ratio SOCRATES MULTANI Comment: A Cholesterol to HDL ratio below 4:1 is desirable. ??Studies suggest that increased CAD risk occurs at ratios abov e 5 for females and above 6 for men. ? [place] Heart Association ??(htt p://www.americanheart.org) ? Luzmaria Int Med, 1994; 121:641 ? AM J Med, 1998; 105(1A):48S Specimen Anatomical Collection Method Collection Time Receive d Time (Source) Location / / Volume Laterality Blood specimen 03/24/2011 2:52 PM 012 2:57 (specimen) EST PM EST Kentrell Guerra MD CHEMISTRY ORDERABLES Performing Organization Address City/[facility] [place] [address] [facility] (ABNORMAL) Vitamin D 25 hydroxy (03/24/2011 2:52 PM EST) athologist Signature 25-Hydroxy D2 <4.0 ng/mL [facility] Comment: Test Performed by: [facility] [place] [address] Rpg Programmer Analyst: Aliya Rubi, Ph. D. 25-Hydroxy D3 16 ng/mL [facility] Comment: Test Performed by: [facility] [place] [address] Rpg Programmer Analyst: Aliya Rubi, Ph. D. 25-OH Vit D Total 16 (L) ng/mL [facility] Comment: Interpretation: 10-24 (mild to moderate deficiency) -- REFERENCE VALUE -- 25-HYDROXY D TOTAL (D2+D3) Optimum levels in the normal population are 25-80 Test Performed by: [facility] [place] [address] Rpg Programmer Analyst: Aliya Rubi, Ph. D. Specimen Anatomical Collection Method Collection Time Receive d Time (Source) Location / / Volume Laterality Blood specimen 03/24/2011 2:52 PM 012 4:36 (specimen) EST PM EST Kentrell Guerra MD CHEMISTRY ORDERABLES Performing Organization Address City/[facility]/ZIP [place] [address] [facility] Hemoglobin A1c (03/24/2011 2:52 PM EST) athologist Signature Hemoglobin A1C 5.5 4.3 - 6.1 CERNER % MILLENNIUM Est Avg Gluc 111 mg/dL [facility] Comment: eAG equivalents for HbA1c percentages: HbA1c(%) ?eAG(mg/dL) 6.0 ?126 6.5 ?140 7.0 ?154 7.5 ?169 8.0 ?183 8.5 ?197 9.0 ?212 9.5 ?226 10.0 ? 240 Limitations: The eAG calculation has not been validated on women, individuals below 18 years old and above 70 years old, and individuals with hemoglobinopathies. Additional resources are available on [facility] ADA website: ??http://professional.diabetes.org/gluc osecalculator.aspx Reference: Angelo MULLEN, Ariel J, Bill R, et al. ??Tr anslating the A1C assay into estimated average glucose values. ??Diabetes Care 2008:31(8):8755-9002. Specimen Anatomical Collection Method Collection Time Receive d Time (Source) Location / / Volume Laterality Blood specimen 03/24/2011 2:52 PM 012 2:57 (specimen) EST PM EST Kentrell Guerra MD CHEMISTRY ORDERABLES Performing Organization Address City/State/ZIP Code Phon e Number [place] [phone] [facility] [address] [facility] Comprehensive metabolic panel (03/24/2011 2:52 PM EST) P athologist Signature Glucose Lvl 94 60 - [...] Organization Address City/State/[place] [address] HOS[address]ITAL LABORATORY [facility] documented in this encounter Visit Diagnoses Diagnosis Diabetes - Primary Type II or unspecified type diabetes jose litus without mention of complication, not stated as uncontrolled documented in this encounter Care Teams Trucking Supervisor Relationship Specialty Start Date End Date Denise Darnell MD PCP - General 01/27/10 08/29/11 [facility] [place] [address] documented as of this encounter
--- OUTSIDE RECORDS SUMMARY | 2021-12-17 15:09 | XMS_ITS | Encounter Summary ---
:1975 Author Organization [facility] [place] [address] Care Team Providers Name Role Phone Denise Darnell MD Primary Care Provider Encounter Details Date Type Department Care Team Description 07/03/2010 Orders Only Obstetrics and Gynecology Brittany Stephens MD at [facility] [place] [address] [place] [address] [phone] (Wo rk) Social History Tobacco Use Types [...] Procedure Name Priority Date/Time Associated Diagnosis Comme [facility] US OB FOLLOW UP Routine 07/03/2010 8:19 AM Result s for this EDT procedure are i n the results section. documented in this encounter Results US OB FOLLOW UP EVALUATION (07/03/2010 8:19 AM EDT) Anatomical Region Laterality Modality Pelvis, Abdomen Ultrasound Specimen (Source) Anatomical Collection Method Collection Time Re ceived Time Location / / Volume Laterality 07/03/2010 8:19 AM EDT Narrative 07/03/2010 8:30 AM EDT ?OBSTETRICS REPOR T ? (Signed Final 07/03/2010 08 :29 am) Patient Info ID: ? [id number] ? : ??[birth year] (35 yrs) Name: ? LORENE SINGLETON ? Visit Date: 07/03/2010 08:16 am Performed By Performed By: ?? Valentina Lundberg Attending: ?Stas BAUTISTA, Joes Osei Referred By: ?LESLIE Hernandez MD Accession#: ? [id number] Procedures UOBFOL - Efw - Growth - Reevaluation - [place] ?[id number] - [id number] Indications S>D Evaluation Heart Rate: ??144 ?bpm Cardiac Activity: ??Observed, normal rh ythm Presentation: ?Cephalic Placenta: ?Posterior left lateral P. Cord ?Not visualized Insertion: Amniotic Fluid ALBERTO FV: ?Normal ALBERTO Sum: ? 15.69 ?? cm ? Larg Pckt: ?5.02 ??cm RUQ: ?? 3.9 ? cm ?LUQ: ?? 3.11 ?? cm RLQ: ?? 5.02 ?cm ?LLQ: ?? 3.66 ?? cm -------- Biometry -------- BPD: ?89 ??mm ?G. Age: ?? 36w 0d ? 21 ??% HC: ?347.8 ??mm ?G. Age: ?? 40w 3d ? 82 ??% AC: ? 371 ?? mm ?G. Age: ?? 41w 0d ? > 97 ??% FL: ? 78 ??mm ?G. Age: ?? 39w 6d ? 90 ??% HUM: ?68 ??mm ?G. Age: ?? 39w 4d ? > 95 ??% CI: ? 67.16 ??% ? 70 - 86 FL/HC: ? 22.4 ??% ? 20.9 - 22.7 HC/AC: ? 0.94 ?0.92 - 1.05 FL/BPD: ?87.6 ??% ? 71 - 87 FL/AC: ? 21.0 ??% ? 20 - 24 Est. FW: ?3952 ?? gm ?? 8 lb 11 oz ?> 95 ??% Gestational Age LMP: ? 36w 3d ?Date : ??10/21/09 ? PAOLA: ?? 07/28/10 U/S Today: ? 39w 2d ?PAOLA: ?? 07/08/10 Best: ?38w 0d ?? Det. By: ??U/S C R L ?PAOLA: ?? 07/17/10 ? (12/17/09) ------- Anatomy ------- Cranium: ?Limited Views Nuchal Fold: ?Not evaluated a t this gestational age Heart: ?Limited View s Stomach: ?Visualized Abdomen: ?Within Normal Limits Cord Vessels: ? 3-vessels- WNL Kidneys: ?Visualized Bladder: ?Visualized Limbs: ?Limbs seen b ut limited views of hands and feet Cervix Uterus Adnexa Left Ovary: ?Not visualized Right Ovary: ?? Not visualized Impression 3rd Trimester Summary Single intrauterine with a ge stational age of 38w 0d based on CRL. Composite age based on the current ultr asound alone is 39w 2d. Estimated weight corresponds to t he > 95th percentile for 38w 0d. Current growth parameters show consiste nt growth at the upper end of the growth c urve. Amniotic fluid volume is normal, ALBERTO = 15.69 cm. Anatomical survey is limited due to the late gestational age, however no structural abnormalitie s are noted. I ??viewed the images and agree with jair capps above interpretation. Thank you for allowing us to participat e in the care of LORENE Mary SINGLETON. Please do not hesitate t o call if you have any questions. ? Jose velazquez MD Electronically Signed Final Report ?? 08:29 am Procedure Note Jose Mcclelland MD - 07/03/2010Format ting of this note might be different from the original. OBSTETRICS REPORT (Signed Final 07/03/2010 08:29 am) Patient Info ID: [id number] : [birth year] (35 yrs ) Name: LORENE SINGLETON Visit Date: 011 08:16 am Performed By Performed By: Valentina Lundberg Attending: Jose Mcclelland MD Referred By: LESLIE Hernandez MD Procedures UOBFOL - Efw - Growth - Reevaluation - [place] [id number] - [id number] Indications S>D Evaluation Heart Rate: 144 bpm Cardiac Activity: Observed, normal rhyt hm Presentation: Cephalic Placenta: Posterior left lateral P. Cord Not visualized Insertion: Amniotic Fluid ALBERTO FV: Normal ALBERTO Sum: 15.69 cm Larg Pckt: 5.02 cm RUQ: 3.9 cm LUQ: 3.11 cm RLQ: 5.02 cm LLQ: 3.66 cm -------- Biometry -------- BPD: 89 mm G. Age: 36w 0d 21 % HC: 347.8 mm G. Age: 40w 3d 82 % AC: 371 mm G. Age: 41w 0d > 97 % FL: 78 mm G. Age: 39w 6d 90 % HUM: 68 mm G. Age: 39w 4d > 95 % CI: 67.16 % 70 - 86 FL/HC: 22.4 % 20.9 - 22.7 HC/AC: 0.94 0.92 - 1.05 FL/BPD: 87.6 % 71 - 87 FL/AC: 21.0 % 20 - 24 Est. FW: 3952 gm 8 lb 11 oz > 95 % Gestational Age LMP: 36w 3d Date: 10/21/09 PAOLA: 1 U/S Today: 39w 2d PAOLA: 07/08/10 Best: 38w 0d Det. By: U/S C R L PAOLA: (12/17/09) ------- Anatomy ------- Cranium: Limited Views Nuchal Fold: Not evaluated at this gest ational age Heart: Limited Views Stomach: Visualized Abdomen: Within Normal Limits Cord Vessels: 3-vessels- WNL Kidneys: Visualized Bladder: Visualized Limbs: Limbs seen but limited views of hands and feet Cervix Uterus Adnexa Left Ovary: Not visualized Right Ovary: Not visualized Impression 3rd Trimester Summary Single intrauterine with a ge stational age of 38w 0d based on CRL. Composite age based on the current ultr asound alone is 39w 2d. Estimated weight corresponds to t he > 95th percentile for 38w 0d. Current growth parameters show consiste nt growth at the upper end of the growth c urve. Amniotic fluid volume is normal, ALBERTO = 15.69 cm. Anatomical survey is limited due to the late gestational age, however no structural abnormalitie s are noted. I viewed the images and agree with the above interpretation. Thank you for allowing us to participat e in the care of LORENE SINGLETON. Please do not hesitate t o call if you have any questions. Jose Mcclelland MD Electronically Signed Final Report 07/03 08:29 am Brittany Reyna MD IMG US OB ORDERABLES documented in this encounter Visit Diagnoses Not on filedocumented in this encounter Care Teams Fiberglass Lamin[employer] Relationship Specialty Start Date End Date Denise Darnell MD PCP - General 01/27/10 08/29/11 [facility] [place] [address] documented as of this encounter
--- OUTSIDE RECORDS SUMMARY | 2021-12-17 15:09 | XMS_ITS | Encounter Summary ---
:1975 Author Organization [facility] [place] [address] Care Team Providers Name Role Phone Denise Barreto MD Primary Care Provider Reason for Referral Consultation (Routine) - Closed Specialty Diagnoses / Procedures Referred By Contact Refer red To Contact Endocrinology Diagnoses Diabetes mellitus type 2 in obese Hypothyroidism Que Ramirez MD [facility] Endocrinology 3b [facility] D R [facility] OBSTETRICS & [place], [place] [phone] [place] [address] Referral ID Status Reason Start Date Expiration Date Visits V isits Requested Authorized [id number] Closed Consult, 07/13/2010 01/09/2011 1 1 Test & Treat Encounter Details Date Type Department Care Team Description 07/10/2010 - Hospital Encounter Birthing Ann-Marie Luz mellitus type 2 in obese; 07/13/2010 Tracey Hernandez MD ; [facility] Hypothyroidism; [facility] DR Obesity; [facility] OBSTETRICS & AMA (advanced maternal age) multigravida 35+; [place], [place] GYNECOLOGY Depression; [id number] [place], [place] Previous delivery, antepartum condition or complication; [phone] [id number] GERD (gastroesophageal reflux disease); [phone] Hyperlipidemia; (Work) failure, antepartum; [phone] Hypertension; (Fax) macrosomi a; DM w/o complica tion type II; state, incidental; Unspecified hyp othyroidism; Obesity, unspec ified; Elderly multigr avida with antepartum condition or complication; Depressive diso rder, not elsewhere classified; Esophageal refl ux; Other and unspe cified hyperlipidemia; Failure of lact ation, antepartum condition or complication; Unspecified ess ential hypertension; Excessive growth affecting management of mother, antepartum Social History Tobacco Use Types Packs/Day Years [...] Que Hanson - 07/13/2010 8:15 AM EDT [facility] Section: What to Expect at Home [...] your doctor if you can take an orji-fgn-gnvydlc medicine. If you think your pain medicine [...] eating high-fiber foods. Ask your doctor about toxt-xkg-qqaegmt stool softeners. ?? Cleanse yourself with a [...] few days after delivery. ?? Plan for manager child if you have other children. ?? Stay [...] YOUR DELIVERY (THE PERIOD): AFTER YOUR VISIT ([place]) DEPRESSION AFTER CHILDBIRTH: AFTER YOUR VISIT ([place]) SECTION: WHAT TO EXPECT AT HOME ([place])documented in this encounter Medications at Time of [...] CARE MANAGEMENT/SOCIAL WORK Patient: Lorene Vale Referral/Contact: F/u Observations: Met w/ Lorene to provide ongoing support. Discussed how she has been coping. Lorene reports that she had a good weekend and states that her baby is well. INDIRAB Demario has been in to visit. Lorene reports that she will be staying at [place] for some additional support for the next week. She states that she is comfortable w/ this arrangement. She also reports that Demario plans on babysitting Tone in the evenings when she returns to work at [employer]. Lorene states that she feels comfortable w/ Demario taking care of Tone and states that she trusts him completely. He sees his daughter Joby approx. 5 days during the week and per Lorene, is a good father. She adds that Demario r emains on [employer] until December and per Lorene, this appears to be influencing him from a positive standpoint. During this visit Lorene is able to contact [facility] to schedule a f/u appt. and discuss obtaining a breast pump. She has already contacted [facility] who will be visiting her tomorrow at [place] (Luzmaria and Mellissa). L[facility]. [facility]ne reports that she plans on working w/ [facility] to apply for subsidized housing. Provided Lorene w/ an application for food stamps as she plans on attempting to receive some State assistance while out on maternity leave. Discussed PPD and encouraged pt. to reach out to her OB team and her therapist (Moshe through [employer]) for ongoing support. Discussed availability of CCM [...] in her custody. With Whom: Has own [employer] apartment. Will stay first week after discharge with the FOB and his fiancee and her three children. Where: [place], [place] Approx time in community: Years Social Resources: Limited. Employed at [employer]. Has [facility] and [facility]. Has been connected with [facility] (RNN[facility]) and has a therapist through [employer]. Seen by Alize CARPIO during antepartum visits. DCYF report made and plan is to have mother take infant home. Extended family in area for support: Little Cognitive Resources: Intact Childbirth Education: Yes/No Educational level: High School Functional Status: Ambulatory, Independent, Without limitations (C/Section with limitations on lifting/driving) Complications requiring follow-up: Financial Resources: Has [facility], WIC. Will return to work at [employer] Health Insurance Coverage: [facility] A/C Technician Chosen: [facility] Baby's Name: Tone Sawant Anticipated Continuing Care [...] of FOB where pt will be staying. [facility] Home Visiting Program ([facility]) Already connected 4th Trimester New mom support/[facility] DME ordered : None Breast Pump: Has Other: Have infant car seat, transportation (provided by [facility]), and minimal family support. Seen by SENIOR WEB ANALYST. Referred to JASON/Chaim RANDOLPH, VNA/VNH referral placed. . CRC: Claudine CUMMINS/ [facility]. Beeper [phone] Kimmie Choi RN - 07/13/2010 12:30 PM EDT Pt and FOB watched POPC video and denies any further questions at this time. FOB arrived to take pt home with his s.o. and brought a carseat that he had bought a year ago for his other child. When putting into carseat RN noticed that carseat would not be tight enough for infant to ride safelyin car. When checking date for expiration it was noted that the seat was made in 2005. A CLINICAL ASSISTANT PROFESSOR came tocheck carseat and agreed with RN that carseat was unsafe. New carseat from donation program brought to pt and infant placed in carseat. Carseat was tight to infant and pt gave donation for seat and [...] cellulitis. Patient is doing well without problems. Infant [...] was seen and discussed on rounds. QUE RAMIREZCLEO 07/13/2010 Vimal Fulton MD - 07/12/2010 7:47 [...] milestones. Patient is doing well without problems. nutrition: [...] II diabetes. She was followed by the [facility] for 3 years prior to for her [...] for and participated in procedure without conflict. ERT Mey Castro MSW - 07/10/2010 5:38 PM EDT OFFICE OF CARE MANAGEMENT/SOCIAL WORK Patient: Lorene Vale Referral/Contact: SW referred to family for support. This typewriter operator automatic has met w/ mother during her current admission. Pt is known to SW from OB clinic. Pt. lives in [place] in a stud apartment. Has been working throughout her at [employer].Receives [place] Medicaid and WIC. FOB is Demario Sawant. Couple are not currently in a relationship. He is the father of their other three children who are not in their custody (three boys). Mother is currently working w/ [facility] (MICHELLE Malloy who has completed home visits) and w/ atherapist through [employer] in [place]. Mother and baby will receive a VNA referral upon d/c. [facility]'s hx of removal. [facility] will keep [facility]'s concerns on file but are not planning on passing [facility]. More detailed XAVIER note [...] section with Pfannenstiel incision Surgeon: Que Ramirez Sawdust Drier: Christine Cotter Attending: Eleanor Nelson Anesthesia: Spinal Estimated Blood Loss: One [...] head was brought to the incision. The was delivered with no difficulty. The mouth and nose were suctioned with a bulb, the cord was clamped and cut. The was handed off to the awaiting nursing [...] fluid was removed using suction with the yankauer tip and blood clots were removed with [...] discharge date for patient encounter. Attending Physician: Eleanor Nelson MD Discharge Diagnoses: IUP s/p repeat [...] Hypertension Meds stopped in 2009 Care Provider: [facility] Admission History (per admit note cut and [...] was initially well controlled by a morphine COMMISSARY HELPER. She was later successfully transitioned to ibuprofen [...] TO PATHOLOGY (SURGICAL OR DERM) Authorizing Provider: Eleanor Nelson MD Updated Allergies/ADRs: Allergies Allergen Reactions [...] in obese stopped Metformin 05/2009 ??? Hypothyroidism 2000 on meds prior to ??? Depression ??? [...] ?? 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 Smoking [...] with this . Has seen the social welfare clerk. Referred to [facility] but has not [...] your medicine for your diabetes General Instructions [facility] Section: What to Expect at Home [...] your doctor if you can take an ehhc-yws-fosiyki medicine. If you think your pain medicine [...] eating high-fiber foods. Ask your doctor about xovm-cqk-yxehpps stool softeners. ?? Cleanse yourself with a [...] few days after delivery. ?? Plan for manager child if you have other children. ?? Stay [...] Phone: Center: 07/20/2010 10:00 AM MOON [place] [employer] Killer 5l [phone] [facility] Future Orders Please Complete By Expires TSH [[id number] Custom] 08/21/10 07/14/11 Process Instructions: Scheduling Instructions: [...] Needs to establish care plan. FOLLOW UP [[id number] Custom] Process Instructions: Scheduling Instructions: Comments: - Return in 2 days to [facility] for staple removal - visit 6 weeks after delivery with [facility] provider. - visit 2 weeks after delivery for depression screening with [facility] provider. Questions: Responses: Referrals: Endocrinology Cc: DENISE BARRETO MD, MD Provider Contact Information: DENISE BARRETO MD, Discharge References/Attachments: Discharge References/Attachments AFTER YOUR DELIVERY (THE PERIOD): AFTER YOUR VISIT ([place]) DEPRESSION AFTER CHILDBIRTH: AFTER YOUR VISIT ([place]) Signed: QUE RAMIREZ 07/13/2010 OR Attestation - Eleanor Nelson MD - 07/11/2010 8:18 AM EDT I was the attending physician supervising the resident in the above care and I was present with the resident for the entire procedure. Uncomplicated repeat LTCS performed for doctor recommended with prior . Delivery ofLGA male . EBL ~ 1000cc. Adhesions of omentum to anterior rectus muscles and uterus noted. Bleeding from L hysterotomy angle controlled with 3 figure of eight sutures. Omental adhesion site bleeding and ligated with 0 vicryl for good hemostasis. Normal uterus, ovaries and fallopian tubes not well visualzed due to habitus and adhesions. Med Student Progress Note - Delisa Chavez - 07/11/2010 6:48 AM EDT ID: Lorene [...] DISCONTD: citric acid-sodium citrate 30 mL Oral Sanitary Engineering Teacher to OR ??? DISCONTD: citric acid-sodium citrate ??? DISCONTD: levothyroxine 200 mcg Oral Daily ??? DISCONTD: bolus IV fluid 500 mL Intravenous Once ??? DISCONTD: ceFAZolin in D5W 2 g Intravenous Once ??? DISCONTD: metFORMIN 500 mg Oral BID WC ??? DISCONTD: COMMISSARY HELPER moran S: Reports feeling fine this AM, [...] using barrier method L&D Delivery Note - Eleanor Nelson MD - 07/10/2010 2:09 PM EDT Delivery Summary for Lorene Vale Labor Events: labor: Rupture date: 07/10/2010 Rupture time: 11:25 AM Rupture type: Artificial Fluid Color: Clear Induction: Augmentation: Complications: Cervical ripening: Delivery: Episiotomy: Lacerations: Repair suture: Repair # of packets: Blood loss (ml): 1000 Information for the patient's : Dyllan Vale [[id number]] Delivery 07/10/2010 11:26 AM by Lower Segment [...] Information for the patient's : Dyllan Vale [[id number]] Delivery 07/10/2010 11:26 AM by Lower Segment Transverse Sex: male Gestational Age: <None> Delivery Clinician: Eleanor Nelson Living?: Yes APGARS One minute Five minutes Ten minutes Skin color: 1 2 Heart rate: 2 2 Grimace: 2 2 Muscle tone: 1 1 Breathin 2 Totals: 7 9 Presentation/position: Vertex Left Occiput Transverse Resuscitation: Suctioning Cord information: 3 Vessels Disposition of cord blood: Blood gases sent? No Complications: Placenta: Delivered: appearance [place] Measurements: Weight: 8 lb 14.3 oz (4034 [...] and poor candidate. Delivery of cephalic male [id number]. 7/9. Clear amniotic fluid. Placenta intact ? True knot vs. knot from delivery through loop. EBL 1000cc. Normal fallopian tubes, uterus and ovaries. Mother an infant stable. documented in this encounter Plan of [...] SCREEN Routine 07/10/2010 9:05 AM Diabetes mellitus ([facility]) EDT type 2 in obese Hypothyroidism Obesity [...] LAB USE ONLY (07/13/2010 11:24 AM EDT) P athologist Signature POC Glucose 124 60 - 199 CERNER mg/dL [facility] Comment: Supplemental ranges: <110 mg/dL before meals <200 mg/dL all other times of the day Specimen Anatomical Collection Method Collection Time Receive d Time (Source) Location / / Volume Laterality Blood specimen 07/13/2010 11:24 1 (specimen) AM EDT 11:24 AM EDT Eleanor Nelson MD POINT OF CARE TEST ORDERABLE S Performing Organization Address City/[facility]/ZIP Code Phon e Number [address] CERNER MILLENNIUM POCT GLUCOSE LAB USE ONLY (07/13/2010 6:04 AM EDT) P athologist Signature POC Glucose 142 60 - 199 CERNER mg/dL [facility] Comment: Supplemental ranges: <110 mg/dL before meals <200 mg/dL all other times of the day Specimen Anatomical Collection Method Collection Time Receive d Time (Source) Location / / Volume Laterality Blood specimen 07/13/2010 6:04 AM 011 6:04 (specimen) EDT AM EDT Eleanor Nelson MD POINT OF CARE TEST ORDERABLE S Performing Organization Address City/[facility]/ZIP [place] [address] CERNER MILLENNIUM POCT GLUCOSE LAB USE ONLY (07/12/2010 7:54 PM EDT) P athologist Signature POC Glucose 104 60 - 199 CERNER mg/dL [facility] Comment: Supplemental ranges: <110 mg/dL before meals <200 mg/dL all other times of the day Specimen Anatomical Collection Method Collection Time Receive d Time (Source) Location / / Volume Laterality Blood specimen 07/12/2010 7:54 PM 011 7:54 (specimen) EDT PM EDT Eleanor Nelson MD POINT OF CARE TEST ORDERABLE S Performing Organization Address City/[facility]/[place] [address] CERNER MILLENNIUM POCT GLUCOSE LAB USE ONLY (07/12/2010 2:41 PM EDT) P athologist Signature POC Glucose 101 60 - 199 CERNER mg/dL [facility] Comment: Supplemental ranges: <110 mg/dL before meals <200 mg/dL all other times of the day Specimen Anatomical Collection Method Collection Time Receive d Time (Source) Location / / Volume Laterality Blood specimen 07/12/2010 2:41 PM 011 2:41 (specimen) EDT PM EDT Eleanor Nelson MD POINT OF CARE TEST ORDERABLE S Performing Organization Address City/State/ZIP Code Phon e Number [address] CERNER MILLENNIUM POCT GLUCOSE LAB USE ONLY (07/12/2010 10:32 AM EDT) P athologist Signature POC Glucose 109 60 - 199 CERNER mg/dL [facility] Comment: Supplemental ranges: <110 mg/dL before meals <200 mg/dL all other times of the day Specimen Anatomical Collection Method Collection Time Receive d Time (Source) Location / / Volume Laterality Blood specimen 07/12/2010 10:32 1 (specimen) AM EDT 10:32 AM EDT Eleanor Nelson MD POINT OF CARE TEST ORDERABLE S Performing Organization Address City/[facility]/ZIP Code Phon e Number [address] CERNER MILLENNIUM POCT GLUCOSE LAB USE ONLY (07/12/2010 6:32 AM EDT) P athologist Signature POC Glucose 99 60 - 199 CERNER mg/dL [facility] Comment: Supplemental ranges: <110 mg/dL before meals <200 mg/dL all other times of the day Specimen Anatomical Collection Method Collection Time Receive d Time (Source) Location / / Volume Laterality Blood specimen 07/12/2010 6:32 AM 011 6:32 (specimen) EDT AM EDT Eleanor Nelson MD POINT OF CARE TEST ORDERABLE S Performing Organization Address City/State/ZIP Code Phon e Number [address] CERNER MILLENNIUM POCT GLUCOSE LAB USE ONLY (07/11/2010 8:08 PM EDT) P athologist Signature POC Glucose 132 60 - 199 CERNER mg/dL [facility] Comment: Supplemental ranges: <110 mg/dL before meals <200 mg/dL all other times of the day Specimen Anatomical Collection Method Collection Time Receive d Time (Source) Location / / Volume Laterality Blood specimen 07/11/2010 8:08 PM 011 8:08 (specimen) EDT PM EDT Eleanor Nelson MD POINT OF CARE TEST ORDERABLE S Performing Organization Address City/[facility]/ZIP Code Phon e Number [address] CERNER MILLENNIUM POCT GLUCOSE LAB USE ONLY (07/11/2010 1:48 PM EDT) P athologist Signature POC Glucose 100 60 - 199 CERNER mg/dL [facility] Comment: Supplemental ranges: <110 mg/dL before meals <200 mg/dL all other times of the day Specimen Anatomical Collection Method Collection Time Receive d Time (Source) Location / / Volume Laterality Blood specimen 07/11/2010 1:48 PM 011 1:48 (specimen) EDT PM EDT Eleanor Nelson MD POINT OF CARE TEST ORDERABLE S Performing Organization Address City/[facility]/ZIP [place] [address] CERNER MILLENNIUM POCT GLUCOSE [...] AM 011 9:31 (specimen) EDT AM EDT Eleanor Nelson MD POINT OF CARE TEST ORDERABLE S Performing Organization Address City/State/ZIP Code Phon e Number [address] CERNER MILLENNIUM POCT GLUCOSE [...] AM 011 6:48 (specimen) EDT AM EDT Eleanor Nelson MD POINT OF CARE TEST ORDERABLE S Performing Organization Address City/State/ZIP Code Phon e Number [place] [id number] CERNER MILLENNIUM (ABNORMAL) REFLEX LAB-A-DIFF (07/11/2010 5:00 AM EDT) [facility] Method Time Signature Neutrophils % 83.7 (H) [...] AM 011 5:10 (specimen) EDT AM EDT Eleanor Nelson MD HEMATOLOGY ORDERABLES Performing Organization Address City/[facility]/[place] [address] CERNER MILLENNIUM (ABNORMAL) CBC (with Diff) (07/11/2010 5:00 AM EDT) athologist Signature WBC 12.9 (H) 4.0 - [...] AM 011 5:10 (specimen) EDT AM EDT Eleanor Nelson MD HEMATOLOGY ORDERABLES Performing Organization Address City/State/[place] [address] CERNER MILLENNIUM POCT GLUCOSE LAB USE ONLY (07/10/2010 8:45 PM EDT) athologist Signature POC Glucose 121 60 - 199 C[facility] mg/dL [facility] Comment: Supplemental ranges: <110 mg/dL before meals <200 mg/dL all other times of the day Specimen Anatomical Collection Method Collection Time Receive d Time (Source) Location / / Volume Laterality Blood specimen 07/10/2010 8:45 PM 011 8:45 (specimen) EDT PM EDT Eleanor Nelson MD POINT OF CARE TEST ORDERABLE S Performing Organization Address City/[facility]/ZIP Code Phon e Number [address] [facility] POCT GLUCOSE LAB USE ONLY (07/10/2010 4:42 PM EDT) P athologist Signature POC Glucose 86 60 - 199 CERNER mg/dL [facility] Comment: Supplemental ranges: <110 mg/dL before meals <200 mg/dL all other times of the day Specimen Anatomical Collection Method Collection Time Receive d Time (Source) Location / / Volume Laterality Blood specimen 07/10/2010 4:42 PM 011 4:42 (specimen) EDT PM EDT Eleanor Nelson MD POINT OF CARE TEST ORDERABLE S Performing Organization Address City/[facility]/ZIP Code Phon e Number [address] [facility] SURGICAL PATHOLOGY REPORT (07/10/2010 2:20 PM EDT) Component Value Ref Test Analysis Performed At Patholo gist Range Method Time Signature Surgical CERNER Pathology ? [facility] Report ? Provider: ?? ELEANOR NELSON Pt. Name: ?? Mary VALE ? Acc #: ?[id number] ?Pt. MRN: ?[id number] ? Col Date: ?? 07/10/2010 ?/Sex: ? [...] ??Sections show dark red, soft, ? homogeneous parenchy ma. ? Sections/Processing: ??Sections are submitted as follows: ??(1) membrane ? roll; (2) proximal and distal cord; (3) surface ? with parenchyma; (4) maternal surface with ? parenchyma. ??(R4) ? ?aje/JRP ? [facility] ? Provider: ?? ELEANOR NELSON Pt. Name: ?? KAVIN, A CARLOS MANUEL A ? Acc #: ?[id number] ?Pt. MRN: ?[id number] ? Col Date: ?? 07/10/2010 ?/Sex: ? [...] / Volume Laterality 07/10/2010 2:20 PM EDT Eleanor Nelson MD PATHOLOGY/CYTOLOGY ORDERABLE S Performing Organization Address City/State/ZIP Code Phon e Number [place] [phone] CERNER MILLENNIUM (ABNORMAL) REFLEX LAB-A-DIFF (07/10/2010 9:05 AM EDT) [facility] gist Method Time Signature Neutrophils % 79.4 (H) [...] Organization Address City/State/ZIP Code Phon e Number [address] [facility] REFLEX LAB-ANTIBODY SCREEN (07/10/2010 9:05 AM EDT) Analysis Performed At Patho logist Time Signature Ab Screen Negative [facility] Expires at [id number] CERNER 2358 on: MILLENNIUM Specimen Anatomical Collection Method Collection Time Receive d Time (Source) Location / / Volume Laterality Blood specimen 07/10/2010 9:05 AM 011 9:15 (specimen) EDT AM EDT Leticia Jett MD BLOOD BANK ORDERABLES Performing Organization Address City/[facility]/ZIP Code Phon e Number [address] [facility] REFLEX LAB-ABO/RH TYPING (07/10/2010 9:05 AM EDT) P athologist Signature ABORh Type A Pos CERNER MILLENNIUM Specimen Anatomical Collection Method Collection Time Receive d Time (Source) Location / / Volume Laterality Blood specimen 07/10/2010 9:05 AM 011 9:15 (specimen) EDT AM EDT Leticia Jett MD BLOOD BANK ORDERABLES Performing Organization Address City/[facility]/ZIP Code Phon e Number [address] [facility] MILLENNIUM (ABNORMAL) CBC (with Diff) (07/10/2010 9:05 AM [...] Jett MD HEMATOLOGY ORDERABLES Performing Organization Address City/[facility]/ZIP [place] [address] [facility] documented in this encounter Visit Diagnoses Diagnosis Diabetes mellitus type 2 in obese Type II or unspecified type diabetes jose litus without mention of complication, not stated as uncontrolled state, incidental Hypothyroidism Unspecified hypothyroidism Obesity Obesity, unspecified Elderly multigravida with antepartum con dition or complication Depression Depressive disorder, not elsewhere class ified Previous delivery, antepartum c ondition or complication GERD (gastroesophageal reflux disease) Esophageal reflux Hyperlipidemia Other and unspecified hyperlipidemia failure, antepartum Failure of , antepartum conditi on or complication Hypertension Unspecified essential hypertension macrosomia Excessive growth affecting managem ent of mother, antepartum Type II or unspecified type diabetes jose litus without mention of complication, not stated as uncontrolled Unspecified hypothyroidism Obesity, unspecified Depressive disorder, not elsewhere class ified Esophageal reflux Other and unspecified hyperlipidemia Failure of , antepartum conditi on or complication Unspecified essential hypertension Excessive growth affecting managem ent of mother, antepartum documented in this encounter Administered Medications Inactive Administered Medications - up to 3 most recent administrations Medication Order MAR Action Action Date Dose Rate Site ceFAZolin (ANCEF) 2g in dextrose 5% Given 07/10/2010 10:20 AM ED T 2 g 100mL 2 g, Intravenous, ONCE, 1 dose, On Tue07/10/10 at 1000, Administer over 30 Minutes, For section prophylaxis citric acid-sodium citrate (BICITRA) 500-334 mg/5 Given 07/10/2010 10:15 AM EDT mL oral solution 1 dose, Starting on Tue07/10/10 at 0905, Until Tue07/10/10 at 1420, LILIANA CASTELLANOS: Cabinet Override citric acid-sodium citrate (BICITRA) oral Given 07/10/2010 8:30 AM EDT 30 mLs solution 30 mL 30 mL, Oral, JUNIOR NET DEVELOPER TO O.R., On Tue07/10/10 at 0830, Day of Surgery (Day of Procedure), Routine diph,pertuss(acel),tet vac(PF) Given 07/13/2010 11:28 AM EDT 0.5 mLs Left Arm (ADACEL, Tdap) injection 0.5 mL 0.5 mL, Intramuscular, PRIOR TO DISCHARGE, Per Protocol, Starting on Tue07/10/10 at 1420, 1 dose, Until Tue07/13/10 at 1128 docusate sodium (COLACE) capsule 100 mg Given 07/13/2010 8:37 AM EDT 100 mg 100 mg, Oral, 2 TIMES DAILY, First dose on Tue07/10/10 at 1430, Until Discontinued, Routine Given 07/12/2010 9:00 PM EDT 100 mg Given 07/12/2010 8:04 AM EDT 100 mg esomeprazole (NEXIUM) capsule 40 mg Given 07/13/2010 8:37 AM EDT 40 mg 40 mg, Oral, EVERY MORNING BEFORE BREAKFAST, First dose on Tue07/11/10 at 0730, Until Discontinued, Routine Given 07/12/2010 8:04 AM EDT 40 mg Given 07/11/2010 8:11 AM EDT 40 mg ibuprofen (ADVIL;MOTRIN) tablet 600 mg Given 07/13/2010 8:37 AM EDT 600 mg 600 mg, Oral, EVERY 6 HOURS PRN, Starting on Tue07/10/10 at 2119, Until Tue07/13/10 at 1450, Pain, Maximum dose of 3200 mg from all sources in 24 hours, Routine Given 07/12/2010 11:00 PM EDT 600 mg Given 07/12/2010 10:33 AM EDT 600 mg lactated ringers 500 mL IV bolus Given 07/10/2010 9:15 AM EDT 500 mLs 500 mL/hr 500 mL, at 500 mL/hr, Intravenous, ONCE, 1 dose, On Tue07/10/10 at 0845, Prior to epidural placement or concerning heart rate pattern or maternal condition, Day of Surgery (Day of Procedure) lactated ringers infusion New Bag 07/10/2010 2:45 PM EDT 100 mL/hr 100 mL/hr 100 mL/hr, Intravenous, CONTINUOUS, Starting on Tue07/10/10 at 1430, Until Tue07/10/10 at 2343, Administer until tolerating clear liquids then saline lock. levothyroxine (SYNTHROID) tablet 125 mcg Given 07/13/2010 8:37 AM EDT 125 mcg 125 mcg, Oral, DAILY, First dose (after last modification) on Tue07/10/10 at 1430, Until Discontinued Given 07/12/2010 6:30 AM EDT 125 mcg Given 07/11/2010 6:00 AM EDT 125 mcg metFORMIN (GLUCOPHAGE) tablet 500 mg Given 07/10/2010 7:29 PM EDT 500 mg 500 mg, Oral, 2 TIMES DAILY WITH MEALS, First dose on Tue07/10/10 at 1700, Until Discontinued, Routine metFORMIN (GLUCOPHAGE) tablet 500 mg Given 07/13/2010 8:37 AM EDT 500 mg 500 mg, Oral, DAILY WITH BREAKFAST, First dose (after last modification) on Tue07/11/10 at 0800, Until Discontinued, Routine Given 07/12/2010 8:04 AM EDT 500 mg Given 07/11/2010 8:12 AM EDT 500 mg morphine 1 mg/mL COMMISSARY HELPER 30 mL New Syringe/Cartridge 07/10/2010 2:36 PM EDT mL/hr Intravenous, COMMISSARY HELPER ONLY, Starting on Tue07/10/10 at 1430, Until Tue07/10/10 at 2121, LOADING DOSE (1 - 4 mg): 0 mg for 1 dose COMMISSARY HELPER DOSE (0.5 - 1.5 mg): 1 mg LOCKOUT INTERVAL (6 - 15 min): 6 minutes CONTINUOUS INFUSION RATE (0.5 - 1.5 mg/hr): 0 mg/hr FOUR HOUR DOSE LIMIT (1 - 30 mg): 30 mg OXYcodone-acetaminophen (PERCOCET) 5-325 Given 07/13/2010 8: 38 AM EDT 2 tablets mg per tablet 1-2 tablet 1-2 tablet, Oral, EVERY 4 HOURS PRN, Starting on Tue07/10/10 at 2118, Until Tue07/13/10 at 1450, Pain, Maximum dose of acetaminophen is 4000 mg from all sources in 24 hours., Routine Given 07/12/2010 8:03 PM EDT 2 tablets Given 07/12/2010 2:44 PM EDT 1 tablet documented in this encounter Active and Recently [...] MORNING BEFORE BREAKF AST, First dose on 07/11/10 at 0730, Until Discontinued, Routine levothyroxine (SYNTHROID) [...] mg 0530 (Given - P rovider: Allyson Osorio, MICHELLE)1514 (Given - Provider: Liliana Jenkins, MICHELLE) 1033 (Given - Provider: Ary Jules RN)2300 (Given - Provider: Brittnee Flynn RN) 0837 (Given - Provider: Kimmie Choi RN) 600 mg, Oral, EVERY 6 HOURS PRN, Startin g Tue07/10/10 at 2119, Until 07/13/10 at 1450, Pain, Maximum dose of 3200 mg from all sources in 24 hours, Routine OXYcodone-acetaminophen (PERCOCET) 5-325 mg per tablet 1-2 tablet 0530 (Given - Provider: Allyson Osorio, RN)0825 (Given - Provider: Kimmie Choi, MICHELLE)1518 (Given - Provider: Liliana Jenkins, RN)2029 (Given - Provider: Brittnee Flynn, MICHELLE) 0053 (Given - Provider: Brittnee Harry RN)1033 (Given - Provider: Ary Jules, MICHELLE)1444 (Given - Provider: Ary Jules, MICHELLE)2002 (Given - Provider: Brittnee Flynn, MICHELLE) 0838 (Given - Provider: Kimmie Choi RN) 1-2 tablet, Oral, EVERY 4 HOURS PRN, Sta rting Tue07/10/10 at 2118, Until 07/13/10 at 1450, Pain, Maximum dose of acetaminophen is 4000 mg from all sources in 24 hours., Routine documented in this encounter Care Teams Clinical Business Analyst Relationship Specialty Start Date End Date Denise Barreto MD PCP - General 01/27/10 08/29/11 [facility] [place] [address] documented as of this encounter
--- OUTSIDE RECORDS SUMMARY | 2021-12-17 15:09 | XMS_ITS | Encounter Summary ---
:1975 Author Organization [facility] [place] [address] Care Team Providers Name Role Phone Denise Darnell MD Primary Care Provider Encounter Details Date Type Department Care Team Description 03/24/2011 Hospital Encounter Laboratory Ezra Kraus [facility] MD Pipe examination [facility] [id number] GENERAL INTERNAL [phone] MEDICINE [place], [place] [address] Social History Tobacco Use Types [...] encounter Visit Diagnoses Diagnosis Health maintenance examination Unspecified general medical examination documented in this encounter Care Teams Chief Diversity Officer Relationship Specialty Start Date End Date Denise Darnell MD PCP - General 01/27/10 08/29/11 [facility] GENER[place] [address] documented as of this encounter
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
--- OUTSIDE RECORDS SUMMARY | 2021-12-17 15:10 | XMS_ITS | Encounter Summary ---
:1975 Author Organization [facility] [place] [address] Care Team Providers Name Role Phone Denise Darnell MD Primary Care Provider Encounter Details Date Type Department Care Team Description 05/25/2010 Office Visit Obstetrics and Gynec ology at [facility], DR [facility] [place] [address] Social History Tobacco Use Types Packs/Day Years Used Date Never Assessed Sex Assigned at Date Recorded Female 05/09/2020 7:27 PM EST documented as of this encounter Plan of Treatment Not on filedocumented as of this encounter Visit Diagnoses Not on filedocumented in this encounter Care Teams Marine Operations Coordinator Relationship Specialty Start Date End Date Denise Darnell MD PCP - General 01/27/10 08/29/[address] [facility] [address] [place] [address] documented as of this encounter
--- OUTSIDE RECORDS SUMMARY | 2021-12-17 15:10 | XMS_ITS | Encounter Summary ---
:1975 Author Organization [facility] [address] Care Team Providers Name Role Phone Denise Darnell MD Primary Care Provider Encounter Details Date Type Department Care Team Description 05/01/2010 Hospital Encounter Laboratory Deni Newsome MD [facility] [place] [address] OBSTETRICS & [phone] GYNECOLOGY [place], [place] [address] Social History Tobacco Use Types Packs/Day Years Used Date Never Assessed Sex Assigned at Date Recorded Female 05/09/2020 7:27 PM EST documented as of this encounter Plan of Treatment Not on filedocumented as of this encounter Procedures Procedure Name Priority Date/Time Associated Diagnosis Comme nts DIFFERENTIAL, Routine 05/01/2010 7:49 AM Results for this AUTOMATED EST procedure are i n the results section. CBC (WITH DIFF) Routine 05/01/2010 7:49 AM Result s for this EST procedure are i n the results section. documented in this encounter Results (ABNORMAL) REFLEX LAB-A-DIFF (05/01/2010 7:49 AM EST) [facility] gist Method Time Signature Neutrophils % 74.6 (H) 34.0 - CERNER 71.0 % MILLENNIUM Neutr Abs (ANC) 10.11 (H) 1.50 - CERNER 6.30 MILLENNIUM x10(3)/mc L Lymphocytes % 17.7 (L) 19.0 - CERNER 53.0 % MILLENNIUM Lymphocytes Abs 2.4 1.0 - 3.6 CERNER x10(3)/mc MILLENNIUM L Monocytes % 5.6 4.0 - CERNER 13.0 % MILLENNIUM Monocyte Abs 0.8 0.2 - 1.0 CERNER x10(3)/mc MILLENNIUM L Eosinophils % 1.0 0.0 - 7.0 CERNER % MILLENNIUM Eosinophils [...] differential will be performed. Kayleen Gran Abs 0.13 (H) 0.00 - 0.05 x10(3)/mcL CER NER MILLENNIUM Specimen Anatomical Collection Method Collection Time Receive d Time (Source) Location / / Volume Laterality Blood specimen 05/01/2010 7:49 AM 011 8:01 (specimen) EST AM EST Deni Newsome MD HEMATOLOGY ORDERABLES Performing Organization Address City/State/ZIP Code Phon e Number [place] [phone] CERNER MILLENNIUM (ABNORMAL) CBC (05/01/2010 7:49 AM EST) P athologist Signature WBC 13.5 (H) 4.0 - 10.0 CERNER x10(3)/mcL MILLENNIUM RBC 3.88 (L) 3.93 - CERNER 5.22 MILLENNIUM x10(6)/mcL Hemoglobin 11.6 11.2 - CERNER 15.7 gm/dL MILLENNIUM Hematocrit 35.1 34.0 - CERNER 45.0 % MILLENNIUM MCV 90.5 79.0 - CERNER 94.0 fL MILLENNIUM MCH 29.9 26.6 - CERNER 32.2 pg MILLENNIUM MCHC 33.0 32.0 - CERNER 36.5 gm/dL ENNIUM Platelets 228 145 - 370 CERNER x10(3)/mcL MILLENNIUM RDWSD 46.2 (H) 35.0 - CERNER 46.0 fL MILLENNIUM RDWCV 14.1 10.9 - CERNER 14.4 % ENNIUM MPV 11.3 9.0 - 12.0 CERNER fL MILLENNIUM Specimen Anatomical Collection Method Collection Time Receive d Time (Source) Location / / Volume Laterality Blood specimen 05/01/2010 7:49 AM 011 8:01 (specimen) EST AM EST Deni Newsome MD HEMATOLOGY ORDERABLES Performing Organization Address City/State/ZIP Code Phon e Number [place] [phone] [facility] documented in this encounter Visit Diagnoses Not on filedocumented in this encounter Care Teams Cutter Woodwind Reeds Relationship Specialty Start Date End Date Denise Darnell MD PCP - General 01/27/10 08/29/[address] [facility] [address] [facility] [place] [address] documented as of this encounter
--- OUTSIDE RECORDS SUMMARY | 2021-12-17 15:10 | XMS_ITS | Encounter Summary ---
:1975 Author Organization [facility] [address] Care Team Providers Name Role Phone Denise Darnell MD Primary Care Provider Encounter Details Date Type Department Care Team Description 04/14/2010 Hospital Encounter Non-Invasive Cardiology Lab [facility] [place] [address] Social History Tobacco Use Types Packs/Day Years Used Date Never Assessed Sex Assigned at Date Recorded Female 05/09/2020 7:27 PM EST documented as of this encounter Plan of Treatment Not on filedocumented as of this encounter Visit Diagnoses Not on filedocumented in this encounter Care Teams Household Refrigerator Mechanic Relationship Specialty Start Date End Date Denise Darnell MD PCP - General 01/27/10 08/29/11 [facility] GENERAL [place] [address] documented as of this encounter
--- OUTSIDE RECORDS SUMMARY | 2021-12-17 15:10 | XMS_ITS | Encounter Summary ---
:1975 [place] [address] Care Team Providers Name Role Phone Denise Darnell MD Primary Care Provider Encounter Details Date Type Department Care Team Description 06/02/2010 Hospital Encounter Obstetrics and Stys, Deni Javier MD Gynecology at [facility] [place] [address] GYNECOLOGY [phone] [place], [place] [address] Social History Tobacco Use Types Packs/Day Years Used Date Former Smoker Alcohol Use Standard Drinks/Week Comments Not Asked 0 (1 standard drink = 0.6 oz pure alcoho l) Sex Assigned at Date Recorded Female 05/09/2020 7:27 PM EST documented as of this encounter Medications at Time of Discharge Medication Sig Dispensed Refills Start Date End Date levothyroxine (SYNTHROID) 200 MCG = 1 0 1 07/13/2010 200 mcg tablet Tablet(s), PO, Once daily insulin NPH human recomb Variable by Time of 0 07/13/2010 (HUMULIN;NOVOLIN) 100 Day, SQ unit/mL injection Pantoprazole (PROTONIX) 40 mg, PO, Once 0 011 07/16/2011 40 mg SuDR daily famotidine (PEPCID AC) 20 20 MG = 1 Tablet(s), 0 05/28/2010 06/26/2010 mg tablet PO, Twice daily documented as of this encounter Plan of Treatment Not on filedocumented as of this encounter Visit Diagnoses Not on filedocumented in this encounter Care Teams Toll Bridge Attendant Relationship Specialty Start Date End Date Denise Darnell MD PCP - General 01/27/10 08/29/11 [facility] GENERAL INTERNAL MEDICINE [place] [phone] documented as of this encounter
--- OUTSIDE RECORDS SUMMARY | 2021-12-17 15:10 | XMS_ITS | Encounter Summary ---
:1975 Author Organization [facility] [place] [address] Care Team Providers Name Role Phone Denise Darnell MD Primary Care Provider Encounter Details Date Type Department Care Team Description 06/09/2010 Routine Obstetrics and Deni Newsome MD [place]: [id number] Gynecology at [facility] [address]ipe [address] [place] & [place] [address] GYNECOLOGY [phone] [place], [place] [address] Social History Tobacco Use Types Packs/Day Years Used Date Former Smoker Cigarettes 2 Alcohol Use Standard Drinks/Week Comments No 0 (1 standard drink = 0.6 oz pure alcoho l) Sex Assigned at Date Recorded Female 05/09/2020 7:27 PM EST documented as of this encounter Progress Notes Deni Newsome MD - 06/11/2010 10:00 AM EDT See [facility] paper record documented in this encounter Miscellaneous Notes Miscellaneous - Mitul Applications Trainer - 06/17/2010 11:25 AM EDT documented in this encounter Plan of Treatment Not on filedocumented as of this encounter Visit Diagnoses Diagnosis Type II or unspecified type diabetes jose litus without mention of complication, not stated as uncontrolled - Primary Previous delivery, antepartum c ondition or complication documented in this encounter Care Teams Senior Industrial Engineer Relationship Specialty Start Date End Date Denise Darnell MD PCP - General 01/27/10 08/29/[address] [facility] [address] [place] [address] documented as of this encounter
--- OUTSIDE RECORDS SUMMARY | 2021-12-17 15:10 | XMS_ITS | Encounter Summary ---
:1975 Author Organization [facility] [place] [address] Care Team Providers Name Role Phone Denise Darnell MD Primary Care Provider Reason for Visit Reason Comments Routine Visit NST Encounter Details Date Type Department Care Team Description 06/16/2010 Routine Obstetrics and Leticia Jett MD [place]: 35w4d Gynecology at [facility] [address] [place] & [place] [address] GYNECOLOGY [phone] [place], [place] [address] (Wo rk) Social History Tobacco Use Types Packs/Day Years Used Date Former Smoker Cigarettes 2 Comments: quits during Alcohol Use Standard Drinks/Week Comments No 0 (1 standard drink = 0.6 oz pure alcoho l) Sex Assigned at Date Recorded Female 05/09/2020 7:27 PM EST documented as of this encounter Last Filed Vital Signs Vital Sign Reading Time Taken Comments Blood Pressure 120/62 06/16/2010 11:43 AM EDT Pulse - - Temperature - - Respiratory Rate - - Oxygen Saturation - - Inhaled Oxygen Concentration - - Weight 148.3 kg (326 lb 14.4 oz) 06/16/2010 11:43 AM EDT Height - - Body Mass Index 48.27 06/03/2010 3:41 PM EDT documented in this encounter Progress Notes Leticia Jett MD - 06/16/2010 12:28 PM EDT No bleeding or leaking of fluid. Few contractions. No pain. FSBS: All in target Insulin: NPH 15 AM, 17 NPH at night NST reactive Has US scheduled 07/02 documented in this encounter Plan of Treatment Not on filedocumented as of this encounter Visit Diagnoses Diagnosis Previous delivery, antepartum c ondition or complication - Primary Diabetes mellitus type 2 in obese Type II or unspecified type diabetes jose litus without mention of complication, not stated as uncontrolled documented in this encounter Care Teams Contract Clerk Relationship Specialty Start Date End Date Denise Darnell MD PCP - General 01/27/10 08/29/11 [facility] GENERAL [place] [address] documented as of this encounter
--- OUTSIDE RECORDS SUMMARY | 2021-12-17 15:10 | XMS_ITS | Encounter Summary ---
:1975 Author Organization [facility] [place] [address] Care Team Providers Name Role Phone Marcia Dickens APRN Primary Care Provider Encounter Details Date Type Department Care Team Description 10/21/2006 Orders Only Radiology and Cardiology Apd Conversion, Results Results Provider, [address] [place] [phone] Social History Tobacco Use Types Packs/Day Years Used Date Never Assessed Sex Assigned at Date Recorded Female 05/09/2020 7:27 PM EST documented as of this encounter Plan of Treatment Not on filedocumented as of this encounter Procedures Procedure Name Priority Date/Time Associated Diagnosis Comme nts LIPID PANEL (REFLEX Routine 10/21/2006 9:50 AM Re sults for this DIRECT LDL) EDT procedure are i n the results section. documented in this encounter Results (ABNORMAL) Lipid Panel (Reflex Direct LDL) (10/21/2006 9:50 AM EDT) [facility] gist Method Time Signature Chol, Total 200 (ExtH) 0 - 199 [facility] mg/dL CONVERSION Triglycerides 236 (ExtH) 0 - 199 [facility] mg/dL CONVERSION HDL 40.4 29 - 89 [facility] (External mg/dL CONVERSION Lab) VLDL 47.2 mg/dL [facility] (External CONVERSION Lab) Chol/HDL Ratio 5.0 (ExtH) 3.2 - 4.4 [facility] CONVERSION Specimen (Source) Anatomical Collection Method Collection Time Re ceived Time Location / / Volume Laterality 10/21/2006 9:50 AM EDT Results Provider Apd Conversion CHEMISTRY OLIVIA S Performing Organization Address City/State/ZIP Code Phon e Number [facility] CONVERSION [address] [place], [place] [address] [facility] CONVERSION documented in this encounter Visit Diagnoses Not on filedocumented in this encounter Care Teams Telephone Sterilizer Relationship Specialty Start Date End Date Marcia Dickens APRN PCP - General Family Medicine 10/30/[address] [place] [address] documented as of this encounter
--- OUTSIDE RECORDS SUMMARY | 2021-12-17 15:10 | XMS_ITS | Encounter Summary ---
:1975 Author Organization [facility] [place] [address] Care Team Providers Name Role Phone Marcia Dickens APRN Primary Care Provider Encounter Details Date Type Department Care Team Description 12/14/2006 Orders Only Radiology and Cardiology Apd Conversion, Results Results Provider, [address] [place] [phone] Social History Tobacco Use Types Packs/Day Years Used Date Never Assessed Sex Assigned at Date Recorded Female 05/09/2020 7:27 PM EST documented as of this encounter Plan of Treatment Not on filedocumented as of this encounter Procedures Procedure Name Priority Date/Time Associated Diagnosis Comme nts TSH Routine 12/14/2006 9:17 AM Results f or this EDT procedure are i n the results section . documented in this encounter Results (ABNORMAL) TSH (12/14/2006 9:17 AM EDT) P athologist Signature TSH 4.83 0.34 - (External 5.60 mIU/L CONVERSION Lab) Specimen (Source) Anatomical Collection Method Collection Time Re ceived Time Location / / Volume Laterality 12/14/2006 9:17 AM EDT Results Provider Apd Conversion CHEMISTRY ORDERABLE S Performing Organization Address City/State/ZIP Code Phon e Number [facility] CONVERSION [address] [place], [place] [address] [facility] CONVERSION documented in this encounter Visit Diagnoses Not on filedocumented in this encounter Care Teams Director Of Partnerships Relationship Specialty Start Date End Date Marcia Dickens APRN PCP - General Family Medicine 10/30/15 [address] [place] [address] documented as of this encounter
--- OUTSIDE RECORDS SUMMARY | 2021-12-17 15:10 | XMS_ITS | Encounter Summary ---
:1975 Author Organization [facility] [place] [address] Care Team Providers Name Role Phone Denise Darnell MD Primary Care Provider Encounter Details Date Type Department Care Team Description 06/01/2010 Orders Only Obstetrics and Gynecology Leticia Jett MD at [facility] [address] OBSTETR[facility] & [place] [address] [place] [address] [phone] (Wo rk) Social History Tobacco Use Types Packs/Day Years Used Date Never Assessed Sex Assigned at Date Recorded Female 05/09/2020 7:27 PM EST documented as of this encounter Plan of Treatment Not on filedocumented as of this encounter Procedures Procedure Name Priority Date/Time Associated Diagnosis Comme nts U24 HRS AND VOLUME Routine 06/01/2010 2:00 PM Res ults for this EDT procedure are i n the results section. documented in this encounter Results REFLEX LAB-U24 HRS AND VOLUME (06/01/2010 2:00 PM EDT) P athologist Signature Hours 24 hour(s) CERNER Collected MILLENNIUM Urine TV (ml) 2300 mL CERNER MILLENNIUM Specimen Anatomical Collection Method Collection Time Receive d Time (Source) Location / / Volume Laterality Urine specimen 06/01/2010 2:00 PM 011 (specimen) EDT 11:36 AM EDT Leticia Jett MD CHEMISTRY ORDERABLES Performing Organization Address City/State/[place] [address] [facility] documented in this encounter Visit Diagnoses Not on filedocumented in this encounter Care Teams Roads And Parking Lots Sweeper Operator Relationship Specialty Start Date End Date Denise Darnell MD PCP - General 01/27/10 08/29/11 [facility] [address] [place] [address] documented as of this encounter
--- OUTSIDE RECORDS SUMMARY | 2021-12-17 15:10 | XMS_ITS | Encounter Summary ---
:1975 [place] [address] Care Team Providers Name Role Phone Unavailable Primary Care Provider Unavailable Encounter Details Date Type Department Care Team Description 01/14/2010 Office Visit Obstetrics and Gynecology [place] [address] Social History Tobacco Use Types Packs/Day Years Used Date Never Assessed Sex Assigned at Date Recorded Female 05/09/2020 7:27 PM EST documented as of this encounter Plan of Treatment Not on filedocumented as of this encounter Visit Diagnoses Not on filedocumented in this encounter
--- OUTSIDE RECORDS SUMMARY | 2021-12-17 15:10 | XMS_ITS | Encounter Summary ---
:1975 Author Organization [facility] [place] [address] Care Team Providers Name Role Phone Denise Darnell MD Primary Care Provider Encounter Details Date Type Department Care Team Description 06/01/2010 Orders Only Obstetrics and Gynecology Leticia Jett MD at [facility] [address] OBSTETR[facility] & [place] [address] [place] [address] [phone] (Wo rk) Social History Tobacco Use Types Packs/Day Years Used Date Never Assessed Sex Assigned at Date Recorded Female 05/09/2020 7:27 PM EST documented as of this encounter Plan of Treatment Not on filedocumented as of this encounter Procedures Procedure Name Priority Date/Time Associated Diagnosis Comme nts PROTEIN, URINE, 24 Routine 06/01/2010 2:00 PM Res ults for this HOUR EDT procedure are i n the results section. documented in this encounter Results PROTEIN, URINE, 24 HOUR (06/01/2010 2:00 PM EDT) P athologist Signature U24 Prot Conc 6 <=80 mg/dL [facility] U24 Prot Calc 0.14 <=0.15 CERNER gm/24hr [facility] Specimen Anatomical Collection Method Collection Time Receive d Time (Source) Location / / Volume Laterality Urine specimen 06/01/2010 2:00 PM 011 (specimen) EDT 11:36 AM EDT Leticia Jett MD URINE ORDERABLES Performing Organization Address City/State/[place] [address] [facility] documented in this encounter Visit Diagnoses Not on filedocumented in this encounter Care Teams Audio Visual Equipment Rental Clerk Relationship Specialty Start Date End Date Denise Darnell MD PCP - General 01/27/10 08/29/11 [facility] GENERAL [place] [address] documented as of this encounter
--- OUTSIDE RECORDS SUMMARY | 2021-12-17 15:10 | XMS_ITS | Encounter Summary ---
:1975 Author Organization [facility] [place] [address] Care Team Providers Name Role Phone Marcia Dickens APRN Primary Care Provider Encounter Details Date Type Department Care Team Description 12/07/1999 Orders Only Radiology and Cardiology Apd Conversion, Results Results Provider, [address] [place] [phone] Social History Tobacco Use Types Packs/Day Years Used Date Never Assessed Sex Assigned at Date Recorded Female 05/09/2020 7:27 PM EST documented as of this encounter Plan of Treatment Not on filedocumented as of this encounter Procedures Procedure Name Priority Date/Time Associated Diagnosis Comme nts URIC ACID Routine 12/07/1999 12:15 PM Results for this EDT procedure are i n the results section . documented in this encounter Results (ABNORMAL) Uric acid (12/07/1999 12:15 PM EDT) P athologist Signature Uric Acid 4.3 2.5 - 6.2 (External mg/dL CONVERSION Lab) Specimen (Source) Anatomical Collection Method Collection Time Re ceived Time Location / / Volume Laterality 12/07/1999 12:15 PM EDT Results Provider Apd Conversion CHEMISTRY ORDERABLE S Performing Organization Address City/State/ZIP Code Phon e Number [facility] CONVERSION [address] [place], [place] [address] [facility] CONVERSION documented in this encounter Visit Diagnoses Not on filedocumented in this encounter Care Teams Client Service Consultant Relationship Specialty Start Date End Date Marcia Dickens APRN PCP - General Family Medicine 10/30/15 [address] [place] [address] documented as of this encounter
--- OUTSIDE RECORDS SUMMARY | 2021-12-17 15:10 | XMS_ITS | Encounter Summary ---
:1975 [place] [address] Care Team Providers Name Role Phone Denise Darnell MD Primary Care Provider Encounter Details Date Type Department Care Team Description 02/16/2010 Hospital Encounter Obstetrics and Jeanna Leiva MD Gynecology at [facility] [address] [place] & [place] [address] GYNECOLOGY [phone] [place], [place] [address] (Wo rk) Social History Tobacco Use Types Packs/Day Years Used Date Never Assessed Sex Assigned at Date Recorded Female 05/09/2020 7:27 PM EST documented as of this encounter Plan of Treatment Not on filedocumented as of this encounter Visit Diagnoses Not on filedocumented in this encounter Care Teams Manufacturing Development Engineer Relationship Specialty Start Date End Date Denise Darnell MD PCP - General 01/27/10 08/29/[address] [facility] [address] [place] [address] documented as of this encounter
--- OUTSIDE RECORDS SUMMARY | 2021-12-17 15:10 | XMS_ITS | Encounter Summary ---
:1975 [place] [address] Care Team Providers Name Role Phone Denise Darnell MD Primary Care Provider Encounter Details Date Type Department Care Team Description 12/17/2009 Orders Only Lab Carlos Pemberton MD [facility] [address] OBSTETRICS & [place] [address] [place] [address] [phone] (Wo rk) Social History Tobacco Use Types Packs/Day Years Used Date Never Assessed Sex Assigned at Date Recorded Female 05/09/2020 7:27 PM EST documented as of this encounter Plan of Treatment Not on filedocumented as of this encounter Procedures Procedure Name Priority Date/Time Associated Comments Diagnosis GC/CHLAM Routine 12/17/2009 12:15 PM Results for this EDT procedure are i n the results section. CF REPORT Routine 12/17/2009 10:45 AM Results for this EDT procedure are i n the results section. DIFFERENTIAL, Routine 12/17/2009 9:32 AM Results for this AUTOMATED EDT procedure are i n the results section. SYPHILIS ANTIBODY Routine 12/17/2009 9:32 AM Resu lts for this SCREEN WITH REFLEX EDT procedure are in the results section. ABO/RH TYPING Routine 12/17/2009 9:32 AM Results for this EDT procedure are i n the results section. RUBELLA ANTIBODY, Routine 12/17/2009 9:32 AM Resu lts for this IGG EDT procedure are i n the results section. HIV SCREEN, 4TH Routine 12/17/2009 9:32 AM Result s for this GENERATION EDT procedure are i n ([facility]/CGP/APD/NL) the resul ts section. HEPATITIS B SURFACE Routine 12/17/2009 9:32 AM Re sults for this ANTIGEN EDT procedure are i n the results section. CBC (WITH DIFF) Routine 12/17/2009 9:32 AM Result s for this EDT procedure are i n the results section. ANTIBODY SCREEN Routine 12/17/2009 9:32 AM Result s for this EDT procedure are i n the results section. documented in this encounter Results REFLEX LAB-GC/CHLAM (12/17/2009 12:15 PM EDT) P athologist Signature GC Gene Amp Negative Negative CERNER MILLENNIUM Comment: The only FDA approved specimen types for this assay are cervix, vagina, urethra and urine. ??The sensitivity and specifi city of the assay for other specimen types has not been determined. GC Source Cervical CERNER MILLENNIUM Chlamydia Gene Amp Negative Negative CERNER MILL ENNIUM Comment: The only FDA approved specimen types for this assay are cervix, vagina, urethra and urine. ??The sensitivity and specifi city of the assay for other specimen types has not been determined. Chlamydia Source Cervical CERNER SARAN NIUM Specimen Anatomical Collection Method Collection Time Receive d Time (Source) Location / / Volume Laterality Specimen of 12/17/2009 12:15 12/17/2009 unknown material PM EDT 12:39 PM ED T (specimen) Sanjuana Horton CNM MICROBIOLOGY - GENERAL ORDER BRANDYN Performing Organization Address City/State/[place] [address] CERNER MILLENNIUM REFLEX LAB-CF REPORT (12/17/2009 10:45 AM EDT) Component Value Ref Test Analysis Performed At Patholo gist Range Method Time Signature Cystic CERNER Fibrosis ? Patient Name: KAVIN, Mary CARLOS MANUEL A ? Ordered By: [facility]LEANOR NELSON [facility] Report ? MR#: [id number] ?LOC: ??5L ? /Sex: ??1975 (34 years), ? Female ?Gen etics ? [id number] ? Final Report ?Accession Number: [id number] ? Cystic Fibrosis Mutation Analysis ? INDICATION FOR STUDY: Carrier testing; no family hist ory. ? Ethnicity: ? ANALYSIS: ??Examinati on of DNA extracted from peripheral blood leukocytes ? for 41 mutations in [facility] Cystic Fibrosis transmembrane conductance regulator ? (CFTR) gene. ? Results: Negative for the 41 mutations tested. ? Interpretation: It is our understanding that this individual has a negative ? personal and family h istory for cystic fibrosis (CF). Using the CFTR InPlex ? assay, this individua l is negative for the 41 mutations tested, including ? the 23 mutations recommended for screening by [facility] [employer] ? [employer]. The se results do not rule out the possibility that this ? individual could be a carrier of a mutation not detected by this test. This ? interpretation is based on the clinical information provided and the ? current understanding of this disease. While DNA testing is very accurate, ? rare diagnostic error s due to various pre- and post-analytical variables do ? occur. ? Comments: A negative test result significantly redu haleigh, but does not ? eliminate, the risk o f being a carrier or having a child with CF. See table ? below. ? Ethnic Group ?--*1-- ?--2*- - ? Ashkenazi Christian ?04/04 to ?95% ? 04/04 to ?90% ? to ?67% ? Nigerien ?? to ?76% ? Nigerien ? to ?61% ? * 1 = Carrier risk reduction with no family history, 2 = Detection Rate ? Methods: Genomic DNA was extracted from t he submitted peripheral blood ? specimen using the [employer]ot. The DNA was enzymatically digested ? Patient: LORENE SINGLETON ? MR#: [id number] ? and analyzed for muta tion status by using signal amplification probes to ? test for the presence of the following mutations/polymorphisms to the CFTR ? gene using the CFTR I nPlex assay.([employer]une, [place]):1717-1G>A, 1898+1G>A, ? 2184delA, 2789+5G>A, 3120+1G>A, 3659delC, 3849+10kbC>T, 621+1G>T, 711+1G>T, ? A455E, G542X, G551D, G85E, B6297X, P1929C , R117H, R334W, R347P, R553X, ? R560T, G1330K, delta F508, deltaI 507, 1078delT, 2183delAA>G, 3849+4A>G, ? 3876delA, 3905insT,394delTT, C9834E, D127 0N, E60X, Q493X, R347H,S549N, ? S549RA>C, S549RT>G, V520F, R6504BS>A, Z1228PF>G, and Y122X. ? Reflex testing: I148T, F508C, IVS8-5T, IVS8-7T, IVS8- 9T. ? This test was developed and its p erformance determined by the Molecular ? Pathology Laboratory at the [facility]. It has not been cleared or approved by ? the U.S. Food and Drug Administration. This ramya t is used for clinical ? purposes and should n ot be considered as investigational or for research ? purposes. The [facility] Pathology Laboratory is certified by the Clinical ? Laboratory Improvemen t Act of 1987 and as such is allowed to perform high ? complexity clinical testing. ? References: ? 1. ACOG/ACMG. Preconception and bull r screening for cystic ? fibrosis. 2001, pp.1-31. ? 2. Michi HERNANDEZ et al., Genetics in Medicine 2002;4:37 9-391. ? Reviewed by: ?? Trisha Teague MD ? [employer] Cut Off Saw Operator, Molecular Patholog y ? Note: I have reviewed the results of this test and agree with the above ? interpretation. (LJT) Specimen (Source) Anatomical Collection Method Collection Time Re ceived Time Location / / Volume Laterality 12/17/2009 10:45 AM EDT Eleanor Nelson MD HEMATOLOGY ORDERABLES Performing Organization Address City/[facility]/ZIP Code Phon e Number [address] [facility] SYPHILLIS IGG ANTIBODY (12/17/2009 9:32 AM EDT) P athologist Signature Syphilis IgG Negative Negative [facility] Specimen Anatomical Collection Method Collection Time Receive d Time (Source) Location / / Volume Laterality Blood specimen 12/17/2009 9:32 AM 010 9:41 (specimen) EDT AM EDT Eleanor Nelson MD IMMUNOLOGY ORDERABLES Performing Organization Address City/[facility]/ZIP Code Phon e Number [address] [facility] HIV-1 AND HIV-2 ANTIBODIES (12/17/2009 9:32 AM EDT) P athologist Signature HIV 1/2 Ab Negative [facility] Specimen Anatomical Collection Method Collection Time Receive d Time (Source) Location / / Volume Laterality Blood specimen 12/17/2009 9:32 AM 010 9:41 (specimen) EDT AM EDT Eleanor Nelson MD IMMUNOLOGY ORDERABLES Performing Organization Address City/[facility]/[place] [address] [facility] RUBELLA ANTIBODY, IGG (12/17/2009 9:32 AM EDT) P athologist Signature Rubella IgG Positive Positive [facility] Specimen Anatomical Collection Method Collection Time Receive d Time (Source) Location / / Volume Laterality Blood specimen 12/17/2009 9:32 AM 010 9:41 (specimen) EDT AM EDT Eleanor Nelson MD IMMUNOLOGY ORDERABLES Performing Organization Address City/[facility]/[place] [address] [facility] HEPATITIS B SURFACE ANTIGEN (12/17/2009 9:32 AM EDT) Analysis Performed At Patho logist Time Signature HepB Surface Negative Negative [facility] MILLENNIUM Specimen Anatomical Collection Method Collection Time Receive d Time (Source) Location / / Volume Laterality Blood specimen 12/17/2009 9:32 AM 010 9:41 (specimen) EDT AM EDT Eleanor Nelson MD CHEMISTRY ORDERABLES Performing Organization Address City/[facility]/[place] [address] [facility] MILLENNIUM REFLEX LAB-ANTIBODY SCREEN (12/17/2009 9:32 AM EDT) Analysis Performed At Patho logist Time Signature Ab Screen Negative [facility] Interp MILLENNIUM Expires at [id number] [facility] 2358 on: MILLENNIUM Specimen Anatomical Collection Method Collection Time Receive d Time (Source) Location / / Volume Laterality Blood specimen 12/17/2009 9:32 AM 010 9:58 (specimen) EDT AM EDT Eleanor Nelson MD BLOOD BANK ORDERABLES Performing Organization Address City/State/[place] [address] CERNER MILLENNIUM REFLEX LAB-ABO/RH (12/17/2009 9:32 AM EDT) P athologist Signature ABORh Type A Pos CERNER MILLENNIUM Specimen Anatomical Collection Method Collection Time Receive d Time (Source) Location / / Volume Laterality Blood specimen 12/17/2009 9:32 AM 010 9:58 (specimen) EDT AM EDT Eleanor Nelson MD BLOOD BANK ORDERABLES Performing Organization Address City/State/[place] [address] CERNER MILLENNIUM REFLEX LAB-A-DIFF (12/17/2009 9:32 AM EDT) P athologist Signature Neutrophils % 67.2 34.0 - CERNER 71.0 % MILLENNIUM Neutr Abs (ANC) 6.01 1.50 - CERNER 6.30 MILLENNIUM x10(3)/mcL Lymphocytes % 24.5 19.0 - CERNER 53.0 % MILLENNIUM Lymphocytes Abs 2.2 1.0 - 3.6 CERNER x10(3)/mcL MILLENNIUM Monocytes % 5.6 4.0 - 13.0 CERNER % MILLENNIUM Monocyte Abs 0.5 0.2 - 1.0 CERNER x10(3)/mcL MILLENNIUM Eosinophils % 2.3 0.0 - 7.0 CERNER % MILLENNIUM Eosinophils Abs 0.2 0.0 - 0.5 CERNER x10(3)/mcL MILLENNIUM Basophils % 0.2 0.0 - 2.0 CERNER % MILLENNIUM Basophils Abs 0.0 0.0 - 0.2 CERNER x10(3)/mcL MILLENNIUM Immature Gran % 0.20 0.00 - CERNER 0.66 % MILLENNIUM Comment: Immature granulocytes(IG's)percentage an d absolute count will include metamyelocytes, myelocytes, and promyelo cytes. Blood smears from CBC's yielding IG's will be scanned manually for concor dance. If this scan disagrees with the automated IG or if promyelocytes are not ed, a manual differential will be performed. Kayleen Gran Abs 0.02 0.00 - 0.05 x10(3)/mcL CER NER MILLENNIUM Specimen Anatomical Collection Method Collection Time Receive d Time (Source) Location / / Volume Laterality Blood specimen 12/17/2009 9:32 AM 010 9:58 (specimen) EDT AM EDT Eleanor Nelson MD HEMATOLOGY ORDERABLES Performing Organization Address City/State/ZIP Code Phon e Number [place] [phone] CERNER MILLENNIUM CBC (12/17/2009 9:32 AM EDT) P athologist Signature WBC 9.0 4.0 - 10.0 CERNER x10(3)/mcL MILLENNIUM RBC 4.33 3.93 - 5.22 CERNER x10(6)/mcL MILLENNIUM Hemoglobin 12.6 11.2 - 15.7 CERNER gm/dL MILLENNIUM Hematocrit 38.9 34.0 - 45.0 CERNER % MILLENNIUM MCV 89.8 79.0 - 94.0 CERNER fL MILLENNIUM MCH 29.1 26.6 - 32.2 CERNER pg MILLENNIUM MCHC 32.4 32.0 - 36.5 CERNER gm/dL MILLENNIUM Platelets 268 145 - 370 CERNER x10(3)/mcL MILLENNIUM RDWSD 44.9 35.0 - 46.0 CERNER fL MILLENNIUM RDWCV 13.6 10.9 - 14.4 CERNER % MILLENNIUM MPV 10.5 9.0 - 12.0 CERNER fL MILLENNIUM Specimen Anatomical Collection Method Collection Time Receive d Time (Source) Location / / Volume Laterality Blood specimen 12/17/2009 9:32 AM 010 9:58 (specimen) EDT AM EDT Eleanor Nelson MD HEMATOLOGY ORDERABLES Performing Organization Address City/[facility]/[place] [address] CERNER MILLENNIUM documented in this encounter Visit Diagnoses Not on filedocumented in this encounter Care Teams Medical Authorization Specialist Relationship Specialty Start Date End Date Denise Darnell MD PCP - General 01/27/10 08/29/[address] [facility] [address] [facility] [place] [id number] documented as of this encounter
--- OUTSIDE RECORDS SUMMARY | 2021-12-17 15:10 | XMS_ITS | Encounter Summary ---
:1975 [place] [address] Care Team Providers Name Role Phone Unavailable Primary Care Provider Unavailable Encounter Details Date Type Department Care Team Description 01/05/2010 Procedure [place] [address] Social History Tobacco Use Types Packs/Day Years Used Date Never Assessed Sex Assigned at Date Recorded Female 05/09/2020 7:27 PM EST documented as of this encounter Plan of Treatment Not on filedocumented as of this encounter Visit Diagnoses Not on filedocumented in this encounter
--- OUTSIDE RECORDS SUMMARY | 2021-12-17 15:10 | XMS_ITS | Encounter Summary ---
:1975 Author Organization [facility] [place] [address] Care Team Providers Name Role Phone Denise Darnell MD Primary Care Provider Encounter Details Date Type Department Care Team Description 12/05/2009 Abstract [facility] [place] [address] Social History Tobacco Use Types Packs/Day Years Used Date Former Smoker Alcohol Use Standard Drinks/Week Comments Not Asked 0 (1 standard drink = 0.6 oz pure alcoho l) Sex Assigned at Date Recorded Female 05/09/2020 7:27 PM EST documented as of this encounter Last Filed Vital Signs Vital Sign Reading Time Taken Comments Blood Pressure 122/78 06/03/2010 3:41 PM EDT Pulse - - Temperature - - Respiratory Rate - - Oxygen Saturation - - Inhaled Oxygen Concentration - - Weight 136.3 kg (300 lb 8 oz) 06/03/2010 3:41 PM EDT Height 175.3 cm (5' 9) 06/03/2010 3:41 PM EDT Body Mass Index 44.38 06/03/2010 3:41 PM EDT documented in this encounter Plan of Treatment Not on filedocumented as of this encounter Visit Diagnoses Not on filedocumented in this encounter Care Teams Passenger Car Upholsterer Apprentice Relationship Specialty Start Date End Date Denise Darnell MD PCP - General 01/27/10 08/29/11 [facility] [address] [place] [address] documented as of this encounter
--- OUTSIDE RECORDS SUMMARY | 2021-12-17 15:10 | XMS_ITS | Encounter Summary ---
:1975 Author Organization [facility] [place] [address] Care Team Providers Name Role Phone Denise Darnell MD Primary Care Provider Encounter Details Date Type Department Care Team Description 06/12/2010 Procedure visit Obstetrics and Gynec ology at [facility] [place] [address] Social History Tobacco Use Types Packs/Day [...] on filedocumented in this encounter Care Teams Carpenter'S Assistant Relationship Specialty Start Date End Date Denise Darnell MD PCP - General 01/27/10 08/29/[address] [facility] [address] [place] [address] documented as of this encounter
--- OUTSIDE RECORDS SUMMARY | 2021-12-17 15:10 | XMS_ITS | Encounter Summary ---
:1975 [place] [address] Care Team Providers Name Role Phone Unavailable Primary Care Provider Unavailable Encounter Details Date Type Department Care Team Description 01/05/2010 Routine Obstetrics and Denise Anthony Gynecology at [facility] [place] [facility] [place] [address] OBSTETRICS & [phone] GYNECOLOGY [place], [place] [address] (Wo rk) Social History Tobacco Use Types Packs/Day Years Used Date Never Assessed Sex Assigned at Date Recorded Female 05/09/2020 7:27 PM EST documented as of this encounter Plan of Treatment Not on filedocumented as of this encounter Visit Diagnoses Not on filedocumented in this encounter
--- OUTSIDE RECORDS SUMMARY | 2021-12-17 15:10 | XMS_ITS | Encounter Summary ---
:1975 Author Organization [facility] [place] [address] Care Team Providers Name Role Phone Denise Darnell MD Primary Care Provider Encounter Details Date Type Department Care Team Description 06/02/2010 Initial consult [facility] 3S Leticia Jett MD [facility] [address] [facility] [place] [address] OBSTETRICS & [phone] GYNECOLOGY [place], [place] [address] (Wo rk) Social History Tobacco [...] on filedocumented in this encounter Care Teams Manager Software Relationship Specialty Start Date End Date Denise Darnell MD PCP - General 01/27/10 08/29/11 [facility] GENERAL [place] [address] documented as of this encounter
--- OUTSIDE RECORDS SUMMARY | 2021-12-17 15:10 | XMS_ITS | Encounter Summary ---
:1975 [place] [address] Care Team Providers Name Role Phone Denise Darnell MD Primary Care Provider Encounter Details Date Type Department Care Team Description 05/05/2010 Office Visit Obstetrics and Gynecology Leticia Jett MD at [facility] [address] OBSTETRICS & [place] [address] [place] [address] [phone] (Wo rk) Social History Tobacco Use Types Packs/Day Years Used Date Never Assessed Sex Assigned at Date Recorded Female 05/09/2020 7:27 PM EST documented as of this encounter Plan of Treatment Not on filedocumented as of this encounter Procedures Procedure Name Priority Date/Time Associated Diagnosis Comme nts TSH Routine 05/05/2010 4:15 PM Results f or this EST procedure are i n the results section . HEMOGLOBIN A1C Routine 05/05/2010 4:15 PM Results for this EST procedure are i n the results section . documented in this encounter Results TSH (05/05/2010 4:15 PM EST) P athologist Signature TSH 2.81 0.27 - 4.20 CERNER mcIU/mL MILLENNIUM Comment: Bond Cord Blood Reference Range: ??0. 35 23.00 uIU/mL Specimen Anatomical Collection Method Collection Time Receive d Time (Source) Location / / Volume Laterality Blood specimen 05/05/2010 4:15 PM 011 4:34 (specimen) EST PM EST Leticia R Jett MD CHEMISTRY ORDERABLES Performing Organization Address City/[facility]/ZIP [place] [address] [facility] HEMOGLOBIN A1C (05/05/2010 4:15 PM EST) P athologist Signature Hemoglobin A1C 5.6 4.3 - 6.1 CERNER % MILLENNIUM Est Avg Gluc 114 mg/dL CERNER MILLENNIUM Comment: eAG equivalents for HbA1c percentages: HbA1c(%) ?eAG(mg/dL) 6.0 ?126 6.5 ?140 7.0 ?154 7.5 ?169 8.0 ?183 8.5 ?197 9.0 ?212 9.5 ?226 10.0 ? 240 Limitations: The eAG calculation has not been validated on women, individuals below 18 years old and above 70 years old, and individuals with hemoglobinopathies. Additional resources are available on [facility] ADA website: ??http://professional.diabetes.org/gluc osecalculator.aspx Reference: Angelo MULLEN, Ariel J, Bill R, et al. ??Tr anslating the A1C assay into estimated average glucose values. ??Diabetes Care 2008:31(8):1658-1211. Specimen Anatomical Collection Method Collection Time Receive d Time (Source) Location / / Volume Laterality Blood specimen 05/05/2010 4:15 PM 011 4:34 (specimen) EST PM EST Leticia Jett MD CHEMISTRY ORDERABLES Performing Organization Address City/State/ZIP Code [place] [address] [facility] documented in this encounter Visit Diagnoses Not on filedocumented in this encounter Care Teams Color Corrector Relationship Specialty Start Date End Date Denise Darnell MD PCP - General 01/27/10 08/29/11 [facility] GENERAL [place] [address] documented as of this encounter
--- OUTSIDE RECORDS SUMMARY | 2021-12-17 15:10 | XMS_ITS | Encounter Summary ---
:1975 Author Organization [place] [address] Care Team Providers Name Role Phone Denise Darnell MD Primary Care Provider Encounter Details Date Type Department Care Team Description 02/16/2010 Procedure visit ZLEB DEP TBD [facility] [place] [address] Social History Tobacco Use Types Packs/Day Years Used Date Never Assessed Sex Assigned at Date Recorded Female 05/09/2020 7:27 PM EST documented as of this encounter Plan of Treatment Not on filedocumented as of this encounter Visit Diagnoses Not on filedocumented in this encounter Care Teams Sandblast Or Shotblast Equipment Tender Relationship Specialty Start Date End Date Denise Darnell MD PCP - General 01/27/10 08/29/[address] [facility] [place] [address] documented as of this encounter
--- OUTSIDE RECORDS SUMMARY | 2021-12-17 15:10 | XMS_ITS | Encounter Summary ---
:1975 Author Organization [facility] [place] [address] Care Team Providers Name Role Phone Denise Darnell MD Primary Care Provider Encounter Details Date Type Department Care Team Description 03/02/2010 Office Visit Obstetrics and Gynecology Renae Oneil, [place] [facility] [address] [facility] [place] [address] OBSTETRICS & GYNECOLOGY [phone] [place], [place] [address] (Wo rk) Social History Tobacco Use Types Packs/Day Years Used Date Never Assessed Sex Assigned at Date Recorded Female 05/09/2020 7:27 PM EST documented as of this encounter Plan of Treatment Not on filedocumented as of this encounter Visit Diagnoses Not on filedocumented in this encounter Care Teams Trucking Supervisor Relationship Specialty Start Date End Date Denise Darnell MD PCP - General 01/27/10 08/29/[address] [facility] [address] [place] [address] documented as of this encounter
--- OUTSIDE RECORDS SUMMARY | 2021-12-17 15:10 | XMS_ITS | Encounter Summary ---
:1975 [place] [address] Care Team Providers Name Role Phone Denise Darnell MD Primary Care Provider Encounter Details Date Type Department Care Team Description 12/17/2009 Orders Only Lab [facility] [place] [address] Social History Tobacco Use Types Packs/Day Years Used Date Never Assessed Sex Assigned at Date Recorded Female 05/09/2020 7:27 PM EST documented as of this encounter Plan of Treatment Not on filedocumented as of this encounter Procedures Procedure Name Priority Date/Time Associated Diagnosis Comme nts GLUCOSE 1 HOUR POST Routine 12/17/2009 12:31 PM R esults for this PRANDIAL EDT procedure are i n the results section. URINE CULTURE Routine 12/17/2009 11:30 AM Results for this EDT procedure are i n the results section. documented in this encounter Results GLUCOSE 1 HOUR POST PRANDIAL (12/17/2009 12:31 PM EDT) P athologist Signature Glucose, 1Hr 115 mg/dL [facility] Specimen Anatomical Collection Method Collection Time Receive d Time (Source) Location / / Volume Laterality Blood specimen 12/17/2009 12:31 0 (specimen) PM EDT 12:37 PM EDT Sanjuana Horton [facility] CHEMISTRY ORDERABLES Performing Organization Address City/State/ZIP Code Phon e Number [place] [phone] [facility] C[facility] (12/17/2009 11:30 AM EDT) [facility] Method Time Signature Urine Culture [facility] ? Patient Name: KAVIN, Mary CARLOS MANUEL A ? Ordered By: SANJUANA HORTON [facility] ? MR#: [id number] ?LOC: ??5L ? /Sex: ??1975 (34 years), ? Female ? PROCEDURE: Urine Culture ?SOURCE: T CC ? COLLECTED: 12/17/2009 11:30 ? STARTED: 12/17/2009 17:51 ? FINAL REPORT ? Final Report ? Verified:12/18/2009 15:04 ? 1,000-9,000 cfu/ml mixed mucosal wendi ? Specimen (Source) Anatomical Collection Method Collection Time Re ceived Time Location / / Volume Laterality Urine specimen 12/17/2009 11:30 0 5:22 obtained by clean AM EDT PM EDT catch procedure (specimen) Sanjuana Horton CNM MICROBIOLOGY - GENERAL ORDER BRANDYN Performing Organization Address City/State/ZIP Code Phon e Number [place] [phone] [facility] Drive [facility] documented in this encounter Visit Diagnoses Not on filedocumented in this encounter Care Teams Policy Intern Relationship Specialty Start Date End Date Denise Darnell MD PCP - General 01/27/10 08/29/11 [facility] GENERAL [place] [address] documented as of this encounter
--- OUTSIDE RECORDS SUMMARY | 2021-12-17 15:10 | XMS_ITS | Encounter Summary ---
:1975 Author Organization [facility] [address] Care Team Providers Name Role Phone Denise Darnell MD Primary Care Provider Encounter Details Date Type Department Care Team Description 05/31/2010 Hospital Encounter Birthing Lisette Carrillo MD Assessment Unit [facility] [address] [facility] [place]ETRICS & [place] [address] GYNECOLOGY [phone] [place] [address] (Wo rk) Social History Tobacco Use Types [...] Procedure Name Priority Date/Time Associated Comments Diagnosis DIFFERENTIAL, AUTOMATED Routine 05/31/2010 2:20 R esults for this PM EDT procedure are i n the results section. CREATININE Routine 05/31/2010 2:20 Results for this PM EDT procedure are i n the results section. CBC (WITH DIFF) Routine 05/31/2010 2:20 Results f or this PM EDT procedure are i n the results section. ASPARTATE Routine 05/31/2010 2:20 Results for this AMINOTRANSFERASE PM EDT procedure a re in the results section. documented in this encounter Results (ABNORMAL) REFLEX LAB-A-DIFF (05/31/2010 2:20 PM EDT) [facility] Method Time Signature Neutrophils % 74.9 (H) 34.0 - CERNER 71.0 % MILLENNIUM Neutr Abs (ANC) 8.20 (H) 1.50 - CERNER 6.30 MILLENNIUM x10(3)/mc L Lymphocytes % 16.7 (L) 19.0 - CERNER 53.0 % MILLENNIUM Lymphocytes Abs 1.8 1.0 - 3.6 CERNER x10(3)/mc MILLENNIUM L Monocytes % 5.8 4.0 - CERNER 13.0 % MILLENNIUM Monocyte Abs 0.6 0.2 - 1.0 CERNER x10(3)/mc MILLENNIUM L Eosinophils % 1.2 0.0 - 7.0 CERNER % MILLENNIUM Eosinophils Abs 0.1 0.0 - 0.5 CERNER x10(3)/mc MILLENNIUM L Basophils % 0.1 0.0 - 2.0 CERNER % MILLENNIUM Basophils Abs 0.0 0.0 - 0.2 CERNER x10(3)/mc MILLENNIUM L Immature Gran % 1.30 (H) 0.00 - CERNER 0.66 % MILLENNIUM Comment: Immature granulocytes(IG's)percentage an d absolute count will include metamyelocytes, myelocytes, and promyelo cytes. Blood smears from CBCs yielding IG's will be scanned manually for concor dance. If this scan disagrees with the automated IG or if promyelocytes are not ed, a manual differential will be performed. Kayleen Gran Abs 0.14 (H) 0.00 - 0.05 x10(3)/mcL CER NER MILLENNIUM Specimen Anatomical Collection Method Collection Time Receive d Time (Source) Location / / Volume Laterality Blood specimen 05/31/2010 2:20 PM 011 2:32 (specimen) EDT PM EDT Leticia Jett MD HEMATOLOGY ORDERABLES Performing Organization Address City/[facility]/[place] [address] CERNER MILLENNIUM (ABNORMAL) CBC (WITH DIFF) (05/31/2010 2:20 PM EDT) P athologist Signature WBC 10.9 (H) 4.0 - 10.0 CERNER x10(3)/mcL MILLENNIUM RBC 3.65 (L) 3.93 - CERNER 5.22 MILLENNIUM x10(6)/mcL Hemoglobin 10.8 (L) 11.2 - CERNER 15.7 gm/dL MILLENNIUM Hematocrit 33.5 (L) 34.0 - CERNER 45.0 % MILLENNIUM MCV 91.8 79.0 - CERNER 94.0 fL MILLENNIUM MCH 29.6 26.6 - CERNER 32.2 pg MILLENNIUM MCHC 32.2 32.0 - CERNER 36.5 gm/dL MILLENNIUM Platelets 189 145 - 370 CERNER x10(3)/mcL MILLENNIUM RDWSD 45.9 35.0 - CERNER 46.0 fL MILLENNIUM RDWCV 13.9 10.9 - CERNER 14.4 % MILLENNIUM MPV 11.6 9.0 - 12.0 CERNER fL MILLENNIUM Specimen Anatomical Collection Method Collection Time Receive d Time (Source) Location / / Volume Laterality Blood specimen 05/31/2010 2:20 PM 011 2:32 (specimen) EDT PM EDT Leticia Jett MD HEMATOLOGY ORDERABLES Performing Organization Address City/State/[place] [address] CERNER MILLENNIUM ASPARTATE AMINOTRANSFERASE (05/31/2010 2:20 PM EDT) P athologist Signature AST 11 0 - 30 CERNER unit/L MILLENNIUM Specimen Anatomical Collection Method Collection Time Receive d Time (Source) Location / / Volume Laterality Blood specimen 05/31/2010 2:20 PM 011 2:32 (specimen) EDT PM EDT Leticia Jett MD CHEMISTRY ORDERABLES Performing Organization Address City/State/[place] [address] CERNER [facility] (ABNORMAL) CREATININE, SERUM (05/31/2010 2:20 PM EDT) Analysis Performed At Patho logist Time Signature Creatinine 0.62 (L) 0.70 - CERNER 1.20 mg/dL [facility] Estimated GFR >60 >=60 CERNER [facility] Comment: The National Kidney Disease Education Pr ogram (NKDEP) has recommended all laboratories report estimated GFR (eGFR) along with plasma creatinine measurements to assist you with recognit ion of early kidney disease. Caveats: ??Plasma creatinine should be a t steady-state (unchanged within the past week). ??Patient age > = 18 years, and for Americans multiply eGFR by 1.2. At present, NKDEP does NOT recommend usi [...] Location / / Volume Laterality Blood specimen 05/31/2010 2:20 PM 011 2:32 (specimen) EDT PM EDT Leticia Jett MD CHEMISTRY ORDERABLES Performing Organization Address City/State/ZIP Code Phon e Number [facility] [place] [address] [facility] documented in this encounter Visit Diagnoses Not on filedocumented in this encounter Care Teams Plasma Center Technician Relationship Specialty Start Date End Date Denise Darnell MD PCP - General 01/27/10 08/29/11 [facility] GENERAL [place] [address] documented as of this encounter
--- OUTSIDE RECORDS SUMMARY | 2021-12-17 15:10 | XMS_ITS | Encounter Summary ---
:1975 Author Organization [facility] [place] [address] Care Team Providers Name Role Phone Marcia Dickens APRN Primary Care Provider Encounter Details Date Type Department Care Team Description 12/14/2006 Orders Only Radiology and Cardiology Apd Conversion, Results Results Provider, [address] [place] [phone] Social History Tobacco Use Types Packs/Day Years Used Date Never Assessed Sex Assigned at Date Recorded Female 05/09/2020 7:27 PM EST documented as of this encounter Plan of Treatment Not on filedocumented as of this encounter Procedures Procedure Name Priority Date/Time Associated Diagnosis Comme nts HEMOGLOBIN A1C Routine 12/14/2006 9:17 AM Results for this EDT procedure are i n the results section . documented in this encounter Results (ABNORMAL) Hemoglobin A1c (12/14/2006 9:17 AM EDT) [facility] gist Method Time Signature Hemoglobin A1C 5.7 4.5 - 5.7 ERIN MCCLENDON DAY (External % CONVERSION Lab) Hemoglobin 12.5 g/dL ERIN MCCLENDON DAY (External CONVERSION Lab) Specimen (Source) Anatomical Collection Method Collection Time Re ceived Time Location / / Volume Laterality 12/14/2006 9:17 AM EDT Results Provider Apd Conversion CHEMISTRY ORDERABLE S Performing Organization Address City/State/ZIP Code Phon e Number ERIN MCCLENDON DAY CONVERSION [address] [place], [place] [address] [facility] CONVERSION documented in this encounter Visit Diagnoses Not on filedocumented in this encounter Care Teams Medical Office Professional Instructor Relationship Specialty Start Date End Date Marcia Dickens, BLANCA PCP - General Family Medicine 10/30/[address] [place] [address] documented as of this encounter
--- OUTSIDE RECORDS SUMMARY | 2021-12-17 15:10 | XMS_ITS | Encounter Summary ---
:1975 Author Organization [facility] [place] [address] Care Team Providers Name Role Phone Marcia Dickens APRN Primary Care Provider Encounter Details Date Type Department Care Team Description 10/21/2006 Orders Only Radiology and Cardiology Apd Conversion, Results Results Provider, [address] [place] [phone] Social History Tobacco Use Types Packs/Day Years Used Date Never Assessed Sex Assigned at Date Recorded Female 05/09/2020 7:27 PM EST documented as of this encounter Plan of Treatment Not on filedocumented as of this encounter Procedures Procedure Name Priority Date/Time Associated Diagnosis Comme nts TSH Routine 10/21/2006 9:50 AM Results f or this EDT procedure are i n the results section . documented in this encounter Results (ABNORMAL) TSH (10/21/2006 9:50 AM EDT) P athologist Signature TSH 5.94 0.34 - ERIN MCCLENDON DAY (ExtH) 5.60 mIU/L CONVERSION Specimen (Source) Anatomical Collection Method Collection Time Re ceived Time Location / / Volume Laterality 10/21/2006 9:50 AM EDT Results Provider Apd Conversion CHEMISTRY ORDERABLE S Performing Organization Address City/State/ZIP Code Phon e Number ERIN MCCLEND[facility] DAY CONVERSION [address] [place], [place] [address] ER[facility] CONVERSION documented in this encounter Visit Diagnoses Not on filedocumented in this encounter Care Teams Infant Teacher Relationship Specialty Start Date End Date Marcia Dickens APRN PCP - General Family Medicine 10/30/15 [address] [place] [address] documented as of this encounter
--- OUTSIDE RECORDS SUMMARY | 2021-12-17 15:10 | XMS_ITS | Encounter Summary ---
:1975 [place] [address] Care Team Providers Name Role Phone Denise Darnell MD Primary Care Provider Encounter Details Date Type Department Care Team Description 02/08/2010 Emergency Emergency Department Celso Small MD [facility] [place] [address] [place] [address] [phone] (Wo rk) Social History Tobacco Use Types Packs/Day Years Used Date Never Assessed Sex Assigned at Date Recorded Female 05/09/2020 7:27 PM EST documented as of this encounter Plan of Treatment Not on filedocumented as of this encounter Visit Diagnoses Not on filedocumented in this encounter Care Teams Tax Expert Relationship Specialty Start Date End Date Denise Darnell MD PCP - General 01/27/10 08/29/[address] [facility] [address] [facility] [address] documented as of this encounter
--- OUTSIDE RECORDS SUMMARY | 2021-12-17 15:10 | XMS_ITS | Encounter Summary ---
:1975 [place] [address] Care Team Providers Name Role Phone Denise Darnell MD Primary Care Provider Encounter Details Date Type Department Care Team Description 02/16/2010 Orders Only Lab [facility] Denise Anthony, [facility] [address] OBSTETRICS & GYNECOLOGY [phone] [place], [place] [address] (Wo rk) Social History Tobacco Use Types Packs/Day Years Used Date Never Assessed Sex Assigned at Date Recorded Female 05/09/2020 7:27 PM EST documented as of this encounter Plan of Treatment Not on filedocumented as of this encounter Procedures Procedure Name Priority Date/Time Associated Diagnosis Comme nts ALPHA FETOPROTEIN, Routine 02/16/2010 12:35 PM Re sults for this MATERNAL EST procedure are i n the results section. documented in this encounter Results ALPHA FETOPROTEIN, MATERNAL (02/16/2010 12:35 PM EST) [facility] Method Time Signature AFP Maternal Screen CERNER Serum Negative MILLENNIUM Comment: For the full text of the report please r efer to Non- Documentation Lab and Pathology in the Clinical Information Sy stem (CIS). Test performed by Busy Moos for Blood R [place], [address], [place] [address] Specimen Anatomical Collection Method Collection Time Receive d Time (Source) Location / / Volume Laterality Blood specimen 02/16/2010 12:35 0 5:33 (specimen) PM EST PM EST Denise Horton [facility] CHEMISTRY ORDERABLES Performing Organization Address City/State/[place] [address] [place] documented in this encounter Visit Diagnoses Not on filedocumented in this encounter Care Teams Plastics Patternmaker Relationship Specialty Start Date End Date Denise Darnell MD PCP - General 01/27/10 08/29/11 [facility] GENERAL [place] [address] documented as of this encounter
--- OUTSIDE RECORDS SUMMARY | 2021-12-17 15:10 | XMS_ITS | Encounter Summary ---
:1975 Author Organization [facility] [place] [address] Care Team Providers Name Role Phone Denise Darnell MD Primary Care Provider Encounter Details Date Type Department Care Team Description 06/19/2010 Procedure visit Obstetrics and Gynecology Marcus Beverly, RN at [facility] [place] [address] Social History Tobacco Use Types Packs/Day [...] on filedocumented in this encounter Care Teams Senior Net Application Developer Relationship Specialty Start Date End Date Denise Darnell MD PCP - General 01/27/10 08/29/[address] [facility] [address] [facility] [place] [address] documented as of this encounter
--- OUTSIDE RECORDS SUMMARY | 2021-12-17 15:10 | XMS_ITS | Encounter Summary ---
:1975 Author Organization [facility] [place] [address] Care Team Providers Name Role Phone Denise Darnell MD Primary Care Provider Encounter Details Date Type Department Care Team Description 06/05/2010 Office Visit Obstetrics and Gynec ology at [facility], DR [address] [facility] [place] [address] Social History Tobacco Use Types Packs/Day [...] on filedocumented in this encounter Care Teams Aml Analyst Relationship Specialty Start Date End Date Denise Darnell MD PCP - General 01/27/10 08/29/[address] [facility] [address] [place] [address] documented as of this encounter
--- OUTSIDE RECORDS SUMMARY | 2021-12-17 15:10 | XMS_ITS | Encounter Summary ---
:1975 [place] [address] Care Team Providers Name Role Phone Unavailable Primary Care Provider Unavailable Encounter Details Date Type Department Care Team Description 01/06/2010 Office Visit Obstetrics and Gynecology at [place] [address] Social History Tobacco Use Types Packs/Day Years Used Date Never Assessed Sex Assigned at Date Recorded Female 05/09/2020 7:27 PM EST documented as of this encounter Plan of Treatment Not on filedocumented as of this encounter Visit Diagnoses Not on filedocumented in this encounter
--- OUTSIDE RECORDS SUMMARY | 2021-12-17 15:10 | XMS_ITS | Encounter Summary ---
:1975 Author Organization [facility] [place] [address] Care Team Providers Name Role Phone Denise Darnell MD Primary Care Provider Encounter Details Date Type Department Care Team Description 06/19/2010 Office Visit Obstetrics and Gynec ology at [facility], DR [address] [facility] [place] [address] Social History Tobacco Use Types Packs/Day [...] on filedocumented in this encounter Care Teams Banquet Director Relationship Specialty Start Date End Date Denise Darnell MD PCP - General 01/27/10 08/29/[address] [facility] [address] [place] [address] documented as of this encounter
--- OUTSIDE RECORDS SUMMARY | 2021-12-17 15:10 | XMS_ITS | Encounter Summary ---
:1975 Author Organization [facility] [place] [address] Care Team Providers Name Role Phone Denise Darnell MD Primary Care Provider Encounter Details Date Type Department Care Team Description 05/21/2010 Office Visit Obstetrics and Gynecology Deni Newsome MD at [facility] [address] OBSTETRICS & [place] [address] [place] [address] [phone] Social History Tobacco Use Types Packs/Day Years Used Date Never Assessed Sex Assigned at Date Recorded Female 05/09/2020 7:27 PM EST documented as of this encounter Plan of Treatment Not on filedocumented as of this encounter Visit Diagnoses Not on filedocumented in this encounter Care Teams Insurance Licensing Supervisor Relationship Specialty Start Date End Date Denise Darnell MD PCP - General 01/27/10 08/29/[address] [facility] [place] [address] documented as of this encounter
--- OUTSIDE RECORDS SUMMARY | 2021-12-17 15:10 | XMS_ITS | Encounter Summary ---
:1975 Author Organization [facility] [place] [address] Care Team Providers Name Role Phone Denise Darnell MD Primary Care Provider Encounter Details Date Type Department Care Team Description 05/05/2010 Procedure visit [address] [place] [address] Social History Tobacco Use Types Packs/Day Years Used Date Never Assessed Sex Assigned at Date Recorded Female 05/09/2020 7:27 PM EST documented as of this encounter Plan of Treatment Not on filedocumented as of this encounter Visit Diagnoses Not on filedocumented in this encounter Care Teams Hospital Unit Clerk Relationship Specialty Start Date End Date Denise Darnell MD PCP - General 01/27/10 08/29/11 [facility] [address] [place] [address] documented as of this encounter
--- OUTSIDE RECORDS SUMMARY | 2021-12-17 15:10 | XMS_ITS | Encounter Summary ---
:1975 Author Organization [facility] [place] [address] Care Team Providers Name Role Phone Denise Darnell MD Primary Care Provider Reason for Visit Reason Onset Date Comments Medication Refill 06/08/2010 Encounter Details Date Type Department Care Team Description 06/08/2010 Refill Care Management Jess Cardozo [facility] [place] [address] Social History Tobacco Use Types Packs/Day Years Used Date Former Smoker Cigarettes 2 Alcohol Use Standard Drinks/Week Comments No 0 (1 standard drink = 0.6 oz pure alcoho l) Sex Assigned at Date Recorded Female 05/09/2020 7:27 PM EST documented as of this encounter Miscellaneous Notes Telephone Encounter - Jess Cardozo - 06/08/2010 1:01 PM EDT I called [facility] to reorder a 90-day supply of Protonix 40 mg po once daily. She has 3 refills left. I let Ms. Singleton know that the medication will shipped to her doctor's office and mailed toher home address within 2 weeks and to call if she does not receive it. documented in this encounter Plan of Treatment Not on filedocumented as of this encounter Visit Diagnoses Not on filedocumented in this encounter Care Teams Fleet Mechanic Relationship Specialty Start Date End Date Denise Darnell MD PCP - General 01/27/10 08/29/11 [facility] [address] GENERAL [place] [address] documented as of this encounter
--- OUTSIDE RECORDS SUMMARY | 2021-12-17 15:10 | XMS_ITS | Encounter Summary ---
:1975 [place] [address] Care Team Providers Name Role Phone Denise Darnell MD Primary Care Provider Encounter Details Date Type Department Care Team Description 02/16/2010 Orders Only Lab [facility] Deni Newsome MD [facility] OBSTETRICS & [place] [address] [place] [address] [phone] Social History Tobacco Use Types Packs/Day Years Used Date Never Assessed Sex Assigned at Date Recorded Female 05/09/2020 7:27 PM EST documented as of this encounter Plan of Treatment Not on filedocumented as of this encounter Procedures Procedure Name Priority Date/Time Associated Diagnosis Comme nts TSH Routine 02/16/2010 12:43 PM Results for this EST procedure are i n the results section . documented in this encounter Results (ABNORMAL) TSH (02/16/2010 12:43 PM EST) P athologist Signature TSH 6.07 (H) 0.27 - 4.20 CERNER mcIU/mL MILLENNIUM Comment: Lester Cord Blood Reference Range: ??0. 35 23.00 uIU/mL Specimen Anatomical Collection Method Collection Time Receive d Time (Source) Location / / Volume Laterality Blood specimen 02/16/2010 12:43 0 (specimen) PM EST 12:49 PM EST Deni Newsome MD CHEMISTRY ORDERABLES Performing Organization Address City/State/[place] [address] [facility] documented in this encounter Visit Diagnoses Not on filedocumented in this encounter Care Teams Help Desk Coordinator Relationship Specialty Start Date End Date Denise Darnell MD PCP - General 01/27/10 08/29/11 [facility] [place] [address] documented as of this encounter
--- OUTSIDE RECORDS SUMMARY | 2021-12-17 15:10 | XMS_ITS | Encounter Summary ---
:1975 Author Organization [place] [address] Care Team Providers Name Role Phone Marcia Dickens APRN Primary Care Provider Encounter Details Date Type Department Care Team Description 04/04/2007 Orders Only Radiology and Cardiology Apd Conversion, Results Results Provider, [address] [place] [phone] Social History Tobacco Use Types Packs/Day Years Used Date Never Assessed Sex Assigned at Date Recorded Female 05/09/2020 7:27 PM EST documented as of this encounter Plan of Treatment Not on filedocumented as of this encounter Procedures Procedure Name Priority Date/Time Associated Diagnosis Comme nts TSH Routine 04/04/2007 10:35 AM Results for this EST procedure are i n the results section . documented in this encounter Results (ABNORMAL) TSH (04/04/2007 10:35 AM EST) P athologist Signature TSH 6.83 0.34 - ERIN MCCLENDON DAY (ExtH) 5.60 mIU/L CONVERSION Specimen (Source) Anatomical Collection Method Collection Time Re ceived Time Location / / Volume Laterality 04/04/2007 10:35 AM EST Results Provider Apd Conversion CHEMISTRY ORDERSHELLEY S Performing Organization Address City/State/ZIP Code Phon e Number ERIN MCCLENDON DAY CONVERSION [address] [place], [place] [address] ERIN MCCLENDON DAY CONVERSION documented in this encounter Visit Diagnoses Not on filedocumented in this encounter Care Teams Boss Dyer Relationship Specialty Start Date End Date Marcia Dickens APRN PCP - General Family Medicine 10/30/[address] [place] [address] documented as of this encounter
--- OUTSIDE RECORDS SUMMARY | 2021-12-17 15:10 | XMS_ITS | Encounter Summary ---
:1975 Author Organization [facility] [place] [address] Care Team Providers Name Role Phone Denise Darnell MD Primary Care Provider Encounter Details Date Type Department Care Team Description 06/02/2010 Orders Only Obstetrics and Gynecology Deni Newsome MD at [facility] [address] OBSTETRICS & [place] [address] [place] [address] [phone] Social History Tobacco Use Types Packs/Day Years Used Date Former Smoker Alcohol Use Standard Drinks/Week Comments Not Asked 0 (1 standard drink = 0.6 oz pure alcoho l) Sex Assigned at Date Recorded Female 05/09/2020 7:27 PM EST documented as of this encounter Plan of Treatment Not on filedocumented as of this encounter Procedures Procedure Name Priority Date/Time Associated Diagnosis Comme [facility] US OB FOLLOW UP Routine 06/02/2010 8:37 AM Result s for this EDT procedure are i n the results section. documented in this encounter Results US OB FOLLOW UP EVALUATION (06/02/2010 8:37 AM EDT) Anatomical Region Laterality Modality Pelvis, Abdomen Ultrasound Specimen (Source) Anatomical Collection Method Collection Time Re ceived Time Location / / Volume Laterality 06/02/2010 8:37 AM EDT Narrative 06/02/2010 10:21 AM EDT ? OBSTETRICS REPORT ? (Signed Final 06/02/2010 08 :32 am) Patient Info ID: ?[id number] ?: ??[birth year] (35 yrs) Name: ?LORENE Hernandez KAVIN ?Visit Date: 06/02/2010 08:25 am Performed By Performed By: ?? Emilia Olivares RDMS Attending: ?Johnie BAUTISTA, Leticia Do Referred By: ?BI Javier MD Accession#: ? [id number] Procedures UOBFOL - Efw - Growth - Reevaluation - Robertson ?[id number] - [id number] Indications Efw, Growth Macrosomia Type II DM Evaluation Heart Rate: ??134 ? bpm Cardiac Activity: ??Observed, normal rh ythm Presentation: ?Transverse, head to ?maternal l eft Placenta: ?Posterior left lateral Amniotic Fluid ALBERTO FV: ?Within normal limits ALBERTO Sum: ? 16.9 ?cm ? Larg Pckt: ?? 5.26 ?? cm RUQ: ?? 3.89 ?? cm ? LUQ: ?? 5 ?cm RLQ: ?? 2.75 ?? cm ? LLQ: ?? 5.26 ? ? cm -------- Biometry -------- BPD: ?86.5 ??mm ?G. Age: ?? 34w 6d ? 81 ??% HC: ?322.7 ??mm ?G. Age: ?? 36w 3d ? 84 ??% AC: ? 320 ?? mm ?G. Age: ?? 35w 6d ? 97 ??% FL: ? 69.6 ??mm ?G. Age: ?? 35w 5d ? 89 ??% HUM: ?61 ??mm ?G. Age: ?? 35w 2d ? 93 ??% CI: ? 72.66 ??% ? 70 - 86 FL/HC: ? 21.6 ??% ? 19.4 - 21.8 HC/AC: ? 1.01 ?0.96 - 1.11 FL/BPD: ?80.5 ??% ? 71 - 87 FL/AC: ? 21.8 ??% ? 20 - 24 Est. FW: ?2774 ??gm ?6 lb 2 oz ?? > 95 ??% Gestational Age LMP: ? 32w 0d ?Date : ??10/21/09 ? PAOLA: ?? 07/28/10 U/S Today: ? 35w 5d ?PAOLA: ?? 07/02/10 Best: ?33w 4d ?? Det. By: ??U/S C R L ?PAOLA: ?? 07/17/10 ? (12/17/09) ------- Anatomy ------- Cranium: ? Visualized Cavum: ? Visualized Ventricles: ?Visualized Choroid Plexus: ?Visualized Cerebellum: ?Not visualized d ue to late gestational age Posterior Fossa: ?? Not visualized due to late gestational age Nuchal Fold: ? Not evaluated at this gestational age Face: ?Limited views Heart: ? Not seen due t o position RVOT: ?Not seen due to position LVOT: ?Not seen due to position Diaphragm: ? Not Visualized Stomach: ? Visualized Abdomen: ? Within Normal L imits Abdominal Wall: ?Limited Views Cord Vessels: ?Not evaluated Kidneys: ? Visualized Bladder: ? Visualized Spine: ? Limited views Limbs: ? Limited views Other: ?? gender: Not determined Cervix Uterus Adnexa Left Ovary: ?? Not visualized Right Ovary: ??Not visualized Impression 3rd Trimester Summary Single intrauterine with a ge stational age of 33w 4d based on early ultrasound. Composite age based on the current ultr asound alone is 35w 5d. Estimated weight corresponds to t he > 95th percentile for 33w 4d. Amniotic fluid volume is within normal limits, ALBERTO = 16.9 cm. Anatomical survey is limited due to the late gestational age, however no structural abnormalitie s are noted. I ??viewed the images and agree with jair capps above interpretation. Thank you for allowing us to participat e in the care of LORENE VALE. Please do not hesitate t o call if you have any questions. ? Leticia youssef MD Electronically Signed Final Report ?? 08:32 am Procedure Note Leticia Jett MD - 06/02/2010Formattin g of this note might be different from the original. OBSTETRICS REPORT (Signed Final 06/02/2010 08:32 am) Patient Info ID: [id number] : [birth year] (35 yrs ) Name: LORENE VALE Visit Date: 011 08:25 am Performed By Performed By: Emilia Olivares RDMN Attending: Leticia Jett MD Referred By: BI Javier MD Procedures UOBFOL - Efw - Growth - Reevaluation - Robertson [id number] - [id number] Indications Efw, Growth Macrosomia Type II DM Evaluation Heart Rate: 134 bpm Cardiac Activity: Observed, normal rhyt hm Presentation: Transverse, head to maternal left Placenta: Posterior left lateral Amniotic Fluid ALBERTO FV: Within normal limits ALBERTO Sum: 16.9 cm Larg Pckt: 5.26 cm RUQ: 3.89 cm LUQ: 5 cm RLQ: 2.75 cm LLQ: 5.26 cm -------- Biometry -------- BPD: 86.5 mm G. Age: 34w 6d 81 % HC: 322.7 mm G. Age: 36w 3d 84 % AC: 320 mm G. Age: 35w 6d 97 % FL: 69.6 mm G. Age: 35w 5d 89 % HUM: 61 mm G. Age: 35w 2d 93 % CI: 72.66 % 70 - 86 FL/HC: 21.6 % 19.4 - 21.8 HC/AC: 1.01 0.96 - 1.11 FL/BPD: 80.5 % 71 - 87 FL/AC: 21.8 % 20 - 24 Est. FW: 2774 gm 6 lb 2 oz > 95 % Gestational Age LMP: 32w 0d Date: 10/21/09 PAOLA: 1 U/S Today: 35w 5d PAOLA: 07/02/10 Best: 33w 4d Det. By: U/S C R L PAOLA: (12/17/09) ------- Anatomy ------- Cranium: Visualized Cavum: Visualized Ventricles: Visualized Choroid Plexus: Visualized Cerebellum: Not visualized due to late gestational age Posterior Fossa: Not visualized due to late gestational age Nuchal Fold: Not evaluated at this gest ational age Face: Limited views Heart: Not seen due to position RVOT: Not seen due to position LVOT: Not seen due to position Diaphragm: Not Visualized Stomach: Visualized Abdomen: Within Normal Limits Abdominal Wall: Limited Views Cord Vessels: Not evaluated Kidneys: Visualized Bladder: Visualized Spine: Limited views Limbs: Limited views Other: gender: Not determined Cervix Uterus Adnexa Left Ovary: Not visualized Right Ovary: Not visualized Impression 3rd Trimester Summary Single intrauterine with a ge stational age of 33w 4d based on early ultrasound. Composite age based on the current ultr asound alone is 35w 5d. Estimated weight corresponds to t he > 95th percentile for 33w 4d. Amniotic fluid volume is within normal limits, ALBERTO = 16.9 cm. Anatomical survey is limited due to the late gestational age, however no structural abnormalitie s are noted. I viewed the images and agree with the above interpretation. Thank you for allowing us to participat e in the care of LORENE VALE. Please do not hesitate t o call if you have any questions. Leticia Jett MD Electronically Signed Final Report 06/02 08:32 am Deni Newsome MD IMG US OB ORDERABLES documented in this encounter Visit Diagnoses Not on filedocumented in this encounter Care Teams Staff Physical Therapist Relationship Specialty Start Date End Date Denise Darnell MD PCP - General 01/27/10 08/29/11 [facility] [place] [address] documented as of this encounter
--- OUTSIDE RECORDS SUMMARY | 2021-12-17 15:10 | XMS_ITS | Encounter Summary ---
:1975 Author Organization [facility] [place] [place] [address] Care Team Providers Name Role Phone Denise Darnell MD Primary Care Provider Encounter Details Date Type Department Care Team Description 01/28/2010 Routine Obstetrics and PschirrRenae ashby, Gynecology [place] [facility] [address] [facility] [phone] OBSTETRICS & [phone] GYNECOLOGY [place], [place] [address] (Wo rk) Social History Tobacco Use Types Packs/Day Years Used Date Never Assessed Sex Assigned at Date Recorded Female 05/09/2020 7:27 PM EST documented as of this encounter Plan of Treatment Not on filedocumented as of this encounter Visit Diagnoses Not on filedocumented in this encounter Care Teams Veterinary Virologist Relationship Specialty Start Date End Date Denise Darnell MD PCP - General 01/27/10 08/29/[address] [facility] [address] [facility] [place] [address] documented as of this encounter
--- OUTSIDE RECORDS SUMMARY | 2021-12-17 15:10 | XMS_ITS | Encounter Summary ---
:1975 Author Organization [facility] [address] Care Team Providers Name Role Phone Denise Darnell MD Primary Care Provider Reason for Visit Reason Comments Non-stress Test Encounter Details Date Type Department Care Team Description 06/19/2010 Routine Obstetrics and Leticia Jett MD GA: 36w0d Gynecology at [facility] [address] [facility] & [place] [address] GYNECOLOGY [phone] [place], [place] [address] (Wo rk) Social History Tobacco Use Types Packs/Day Years Used Date Former Smoker Cigarettes 2 Comments: quits during Alcohol Use Standard Drinks/Week Comments No 0 (1 standard drink = 0.6 oz pure alcoho l) Sex Assigned at Date Recorded Female 05/09/2020 7:27 PM EST documented as of this encounter Last Filed Vital Signs Vital Sign Reading Time Taken Comments Blood Pressure 138/72 06/19/2010 2:57 PM EDT Pulse - - Temperature - - Respiratory Rate - - Oxygen Saturation - - Inhaled Oxygen Concentration - - Weight 148.8 kg (328 lb) 06/19/2010 2:57 PM EDT Height - - Body Mass Index 48.44 06/03/2010 3:41 PM EDT documented in this encounter Progress Notes Vimal Beverly RN - 06/19/2010 3:24 PM EDT Seen today for NST. Feeling tired and sleeping on recliner at nite. Working with [employer] in [place]. Taking classes at [employer] who are helping her with car seat. [place] helping with breast pump when she goes back to work. Brought in glucose log, all numbers in target range. Reviewed signs and symptoms of labor. NST reactive documented in this encounter Plan of Treatment Not on filedocumented as of this encounter Visit Diagnoses Diagnosis Diabetes mellitus type 2 in obese - Prim kezia Type II or unspecified type diabetes jose litus without mention of complication, not stated as uncontrolled documented in this encounter Care Teams Control Chemist Relationship Specialty Start Date End Date Denise Darnell MD PCP - General 01/27/10 08/29/11 [facility] [address] [facility] [address] documented as of this encounter
--- OUTSIDE RECORDS SUMMARY | 2021-12-17 15:10 | XMS_ITS | Encounter Summary ---
:1975 Author Organization [facility] [place] [address] Care Team Providers Name Role Phone Marcia Dickens APRN Primary Care Provider Encounter Details Date Type Department Care Team Description 04/04/2007 Orders Only Radiology and Cardiology Apd Conversion, Results Results Provider, [address] [place] [phone] Social History Tobacco Use Types Packs/Day Years Used Date Never Assessed Sex Assigned at Date Recorded Female 05/09/2020 7:27 PM EST documented as of this encounter Plan of Treatment Not on filedocumented as of this encounter Procedures Procedure Name Priority Date/Time Associated Diagnosis Comme nts HEMOGLOBIN A1C Routine 04/04/2007 10:35 AM Result s for this EST procedure are i n the results section . documented in this encounter Results (ABNORMAL) Hemoglobin A1c (04/04/2007 10:35 AM EST) [facility] gist Method Time Signature Hemoglobin A1C 5.9 (ExtH) 4.5 - 5.7 ERIN MCCLENDON DAY % CONVERSION Hemoglobin 13.2 g/dL ERIN MCCLENDON DAY (External CONVERSION Lab) Specimen (Source) Anatomical Collection Method Collection Time Re ceived Time Location / / Volume Laterality 04/04/2007 10:35 AM EST Results Provider Apd Conversion CHEMISTRY ORDERABLE S Performing Organization Address City/State/ZIP Code Phon e Number ERIN MCCLENDON DAY CONVERSION [address] [place], [place] [address] ERIN MCCLENDON DAY CONVERSION documented in this encounter Visit Diagnoses Not on filedocumented in this encounter Care Teams Director Furniture Relationship Specialty Start Date End Date Marcia Dickens APRN PCP - General Family Medicine 10/30/[address] [place] [address] documented as of this encounter
--- OUTSIDE RECORDS SUMMARY | 2021-12-17 15:10 | XMS_ITS | Encounter Summary ---
:1975 Author Organization [facility] [place] [address] Care Team Providers Name Role Phone Denise Darnell MD Primary Care Provider Encounter Details Date Type Department Care Team Description 04/11/2010 Hospital Encounter Laboratory StDeni navas MD [facility] [address] OBSTETRICS & [phone] GYNECOLOGY [place], [place] [address] Social History Tobacco Use Types Packs/Day Years Used Date Never Assessed Sex Assigned at Date Recorded Female 05/09/2020 7:27 PM EST documented as of this encounter Plan of Treatment Not on filedocumented as of this encounter Procedures Procedure Name Priority Date/Time Associated Diagnosis Comme nts DIFFERENTIAL, Routine 04/11/2010 9:37 AM Results for this AUTOMATED EST procedure are i n the results section. CBC (WITH DIFF) Routine 04/11/2010 9:37 AM Result s for this EST procedure are i n the results section. TSH Routine 04/11/2010 9:37 AM Results f or this EST procedure are i n the results section. documented in this encounter Results (ABNORMAL) REFLEX LAB-A-DIFF (04/11/2010 9:37 AM EST) [facility] Method Time Signature Neutrophils % 70.6 34.0 - CERNER 71.0 % MILLENNIUM Neutr Abs (ANC) 8.85 (H) 1.50 - CERNER 6.30 MILLENNIUM x10(3)/mc L Lymphocytes % 21.1 19.0 - CERNER 53.0 % MILLENNIUM Lymphocytes Abs 2.6 1.0 - 3.6 CERNER x10(3)/mc MILLENNIUM L Monocytes % 6.1 4.0 - CERNER 13.0 % MILLENNIUM Monocyte Abs 0.8 0.2 - 1.0 CERNER x10(3)/mc MILLENNIUM L Eosinophils % 1.3 0.0 - 7.0 CERNER % MILLENNIUM Eosinophils Abs 0.2 0.0 - 0.5 CERNER x10(3)/mc MILLENNIUM L Basophils % 0.2 0.0 - 2.0 CERNER % MILLENNIUM Basophils Abs 0.0 0.0 - 0.2 CERNER x10(3)/mc MILLENNIUM L Immature Gran % 0.70 (H) 0.00 - CERNER 0.66 % MILLENNIUM Comment: Immature granulocytes(IG's)percentage an d absolute count will include metamyelocytes, myelocytes, and promyelo cytes. Blood smears from CBCs yielding IG's will be scanned manually for concor dance. If this scan disagrees with the automated IG or if promyelocytes are not ed, a manual differential will be performed. Kayleen Gran Abs 0.09 (H) 0.00 - 0.05 x10(3)/mcL CER NER MILLENNIUM Specimen Anatomical Collection Method Collection Time Receive d Time (Source) Location / / Volume Laterality Blood specimen 04/11/2010 9:37 AM 011 9:42 (specimen) EST AM EST Deni Newsome MD HEMATOLOGY ORDERABLES Performing Organization Address City/[facility] [place] [address] CERNER MILLENNIUM TSH (04/11/2010 9:37 AM EST) P athologist Signature TSH 4.18 0.27 - 4.20 CERNER mcIU/mL MILLENNIUM Comment: Cord Blood Reference Range: ??0. 35 23.00 uIU/mL Specimen Anatomical Collection Method Collection Time Receive d Time (Source) Location / / Volume Laterality Blood specimen 04/11/2010 9:37 AM 011 9:42 (specimen) EST AM EST Deni Newsome MD CHEMISTRY ORDERABLES Performing Organization Address City/State/[place] [address] CERNER MILLENNIUM (ABNORMAL) CBC (04/11/2010 9:37 AM EST) P athologist Signature WBC 12.5 (H) 4.0 - 10.0 CERNER x10(3)/mcL MILLENNIUM RBC 3.80 (L) 3.93 - CERNER 5.22 MILLENNIUM x10(6)/mcL Hemoglobin 11.3 11.2 - CERNER 15.7 gm/dL MILLENNIUM Hematocrit 34.4 34.0 - CERNER 45.0 % MILLENNIUM MCV 90.5 79.0 - CERNER 94.0 fL MILLENNIUM MCH 29.7 26.6 - CERNER 32.2 pg MILLENNIUM MCHC 32.8 32.0 - CERNER 36.5 gm/dL MILLENNIUM Platelets 226 145 - 370 CERNER x10(3)/mcL MILLENNIUM RDWSD 46.0 35.0 - CERNER 46.0 fL MILLENNIUM RDWCV 14.1 10.9 - CERNER 14.4 % MILLENNIUM MPV 11.0 9.0 - 12.0 CERNER fL MILLENNIUM Specimen Anatomical Collection Method Collection Time Receive d Time (Source) Location / / Volume Laterality Blood specimen 04/11/2010 9:37 AM 011 9:42 (specimen) EST AM EST Deni Newsome MD HEMATOLOGY ORDERABLES Performing Organization Address City/[facility]/[place] [address] CERNER MILLENNIUM documented in this encounter Visit Diagnoses Not on filedocumented in this encounter Care Teams Maritime Pilot Relationship Specialty Start Date End Date Denise Darnell MD PCP - General 01/27/10 08/29/11 [facility] GENER[place] [address] documented as of this encounter
--- OUTSIDE RECORDS SUMMARY | 2021-12-17 15:10 | XMS_ITS | Encounter Summary ---
:1975 Author Organization [facility] [place] [address] Care Team Providers Name Role Phone Marcia Dickens APRN Primary Care Provider Encounter Details Date Type Department Care Team Description 11/02/1999 Orders Only Radiology and Cardiology Apd Conversion, Results Results Provider, [address] [place] [phone] Social History Tobacco Use Types Packs/Day Years Used Date Never Assessed Sex Assigned at Date Recorded Female 05/09/2020 7:27 PM EST documented as of this encounter Plan of Treatment Not on filedocumented as of this encounter Procedures Procedure Name Priority Date/Time Associated Diagnosis Comme nts TYPE AND SCREEN Routine 11/02/1999 9:30 AM Result s for this ([facility]) EDT procedure a re in the results section. documented in this encounter Results (ABNORMAL) Type and screen ([facility]) (11/02/1999 9:30 AM EDT) [facility] gist Method Time Signature ABO Grouping A (External ABO ERIN MCCLENDON Lab) DAY CONVERSION Rh POSITIVE ERIN MCCLENDON (External DAY Lab) CONVERSION AB Screen Interp NEGATIVE NEGATIVE ERIN MCCLENDON (External DAY Lab) CONVERSION [employer] GAS METER INSTALLER HELPER ERIN MCCLENDON Identification (External DAY Lab) CONVERSION Specimen (Source) Anatomical Collection Method Collection Time Re ceived Time Location / / Volume Laterality 11/02/1999 9:30 AM EDT Results Provider Apd Conversion BLOOD BANK ORDERABL ES Performing Organization Address City/State/ZIP Code Phon e Number ERIN MCCLENDON DAY CONVERSION [address] [place], [place] [address] ERIN MCCLENDON DAY CONVERSION documented in this encounter Visit Diagnoses Not on filedocumented in this encounter Care Teams Representative Phlebotomy Services Relationship Specialty Start Date End Date Marcia Dickens APRN PCP - General Family Medicine 10/30/[address] [place] [address] documented as of this encounter
--- OUTSIDE RECORDS SUMMARY | 2021-12-17 15:10 | XMS_ITS | Encounter Summary ---
:1975 Author Organization [facility] [place] [address] Care Team Providers Name Role Phone Denise Darnell MD Primary Care Provider Encounter Details Date Type Department Care Team Description 04/01/2010 Office Visit Obstetrics and [place]necology [place] [address] Social History Tobacco Use Types Packs/Day Years Used Date Never Assessed Sex Assigned at Date Recorded Female 05/09/2020 7:27 PM EST documented as of this encounter Plan of Treatment Not on filedocumented as of this encounter Visit Diagnoses Not on filedocumented in this encounter Care Teams Machine Turner Relationship Specialty Start Date End Date Denise Darnell MD PCP - General 01/27/10 08/29/11 [facility] GENERAL [place] [address] documented as of this encounter
--- OUTSIDE RECORDS SUMMARY | 2021-12-17 15:10 | XMS_ITS | Encounter Summary ---
:1975 [place] [address] Care Team Providers Name Role Phone Unavailable Primary Care Provider Unavailable Encounter Details Date Type Department Care Team Description 01/06/2010 Office Visit Obstetrics and Gynecology Kirsten [place] [address] Social History Tobacco Use Types Packs/Day Years Used Date Never Assessed Sex Assigned at Date Recorded Female 05/09/2020 7:27 PM EST documented as of this encounter Plan of Treatment Not on filedocumented as of this encounter Visit Diagnoses Not on filedocumented in this encounter
--- OUTSIDE RECORDS SUMMARY | 2021-12-17 15:10 | XMS_ITS | Encounter Summary ---
:1975 Author Organization [facility] [place] [address] Care Team Providers Name Role Phone Marcia Dickens APRN Primary Care Provider Encounter Details Date Type Department Care Team Description 12/07/1999 Orders Only Radiology and Cardiology Apd Conversion, Results Results Provider, [address] [place] [phone] Social History Tobacco Use Types Packs/Day Years Used Date Never Assessed Sex Assigned at Date Recorded Female 05/09/2020 7:27 PM EST documented as of this encounter Plan of Treatment Not on filedocumented as of this encounter Procedures Procedure Name Priority Date/Time Associated Comments Diagnosis LUTEINIZING HORMONE Routine 12/07/1999 12:15 PM R esults for this EDT procedure are i n the results section. documented in this encounter Results (ABNORMAL) Luteinizing Hormone (12/07/1999 12:15 PM EDT) P athologist Signature LH 0.00 mIU/ML ERIN MCCLENDON DAY (External CONVERSION Lab) Specimen (Source) Anatomical Collection Method Collection Time Re ceived Time Location / / Volume Laterality 12/07/1999 12:15 PM EDT Results Provider Apd Conversion CHEMISTRY ORDERABLE S Performing Organization Address City/State/ZIP Code Phon e Number ERIN MCCLENDON DAY CONVERSION [address] [place], [place] [address] ERIN MCCLENDON DAY CONVERSION documented in this encounter Visit Diagnoses Not on filedocumented in this encounter Care Teams Crop Duster Helper Relationship Specialty Start Date End Date Marcia Dickens APRN PCP - General Family Medicine 10/30/[address] [place] [address] documented as of this encounter
--- OUTSIDE RECORDS SUMMARY | 2021-12-17 15:10 | XMS_ITS | Encounter Summary ---
:1975 Author Organization [facility] [place] [address] Care Team Providers Name Role Phone Denise Darnell MD Primary Care Provider Encounter Details Date Type Department Care Team Description 06/02/2010 Procedure visit Obstetrics and Brittany Reyna, Gynecology at [facility] [place] [facility] [place] [address] OBSTETRICS & [phone] GYNECOLOGY [place], [place] [address] (Wo rk) Social History Tobacco [...] filedocumented in this encounter Care Teams Community Assistant Relationship Specialty Start Date End Date Denise Darnell MD PCP - General 01/27/10 08/29/11 [facility] [place] [address] documented as of this encounter
--- OUTSIDE RECORDS SUMMARY | 2021-12-17 15:10 | XMS_ITS | Encounter Summary ---
:1975 Author Organization [facility] [place] [address] Care Team Providers Name Role Phone Denise Darnell MD Primary Care Provider Encounter Details Date Type Department Care Team Description 04/14/2010 Office Visit Obstetrics and Gynecology Renae Oneil, at [facility] [place] [facility] [place] [id number] OBSTETRICS & GYNECOLOGY [phone] [place], [place] [address] (Wo rk) Social History Tobacco Use Types Packs/Day Years Used Date Never Assessed Sex Assigned at Date Recorded Female 05/09/2020 7:27 PM EST documented as of this encounter Miscellaneous Notes Miscellaneous - [employer] - 06/05/2010 10:59 AM EDT documented in this encounter Plan of Treatment Not on filedocumented as of this encounter Visit Diagnoses Not on filedocumented in this encounter Care Teams School Office Assistant Relationship Specialty Start Date End Date Denise Darnell MD PCP - General 01/27/10 08/29/[address] [facility] [place] [address] documented as of this encounter
[2021-12-17 21:07] LABS: COMMENT (LAB VIEW ONLY) 57.89 mg/dL
[2021-12-17 21:09] LABS: Microalb ug/mg Crea 124.7 ug/mg Cr
== END 2021-12-17 15:05 | disposition home or self-care (01) ==
LOC: LBN 15:04
PROVIDERS: Visit Provider Nurse Practitioner Family
DX: E11.65 Type 2 diabetes mellitus with hyperglycemia (principal); F98.8 Other specified behavioral and emotional disorders with onset usually occurring in childhood and adolescence
CPT/HCPCS: 82043; 82570

== ENCOUNTER 2022-01-11 03:45 | Emergency (ER) | payer MEDICAID, SELFPAY ==
[2022-01-11 03:49] VITALS: BP 139/80; PULSE 81; RESP 16; TEMP 36.7; O2SAT 98
--- NOTE | 2022-01-11 03:49 | ED.GENADUL_ITS ---
Discharge Plan Disposition Patient Disposition: HOME Condition: Stable Discharge Details Clinical Impression: Tendinitis of thumb Primary Care Provider: Kev Campos ED Provider: Neelam Norman Home Meds and New Rx's Prescriptions: Continued hydrochlorothiazide 25 mg tablet 25 mg PO DAILY Qty: 90 3RF ofloxacin [Ocuflox] 0.3 % drops See Rx Instructions ophthalmic (eye) .COMPLEX Qty: 10 0RF Rx Instructions: put 2 drps into both eye(s) every 2 h x 2 days while awake, then 2 drps 4 times/day days 3-7 ophthalmic (eye) lisinopril 2.5 mg tablet 5 mg PO DAILY Qty: 180 3RF topiramate [Topamax] 25 mg tablet 25 mg PO QHS Qty: 30 3RF fluticasone propionate 50 mcg/actuation spray,suspension 1 spray intranasal BID Qty: 16 1RF Rx Instructions: administer into each nostril (DME) Dexcom G6 Payloader Operator Misc See Rx Instructions .ROUTE .MEDSUPPLY Qty: 1 0RF Rx Instructions: As directed cyanocobalamin (vitamin B-12) 500 mcg tablet 500 mcg PO DAILY Qty: 90 4RF fluoxetine 40 mg capsule 40 mg PO DAILY Qty: 90 4RF glucose [Dex4 Glucose] 4 gram tablet,chewable 4 g PO Q15M PRN (Reason: hypoglycemia) Qty: 7 2RF Rx Instructions: until response insulin aspart U-100 [Novolog Flexpen U-100 Insulin] 100 unit/mL (3 mL) insulin pen See Rx Instructions Sub-Q TID Qty: 15 3RF Hold Instructions: Home Medication placed on hold at Doctor's office Dose Instruction: Units determined by FS and carb intake Sub-Q TID; E11.65 Rx Instructions: Units determined by FS and carb intake Sub-Q TID; E11.65 Tresiba FlexTouch U-200 200 unit/mL (3 mL) insulin pen 80 - 100 unit subcut DAILY Qty: 45 3RF Rx Instructions: As directed levocetirizine [Xyzal] 5 mg tablet 5 mg PO PRN Qty: 30 3RF Hold Instructions: Home Medication placed on hold at Doctor's office levothyroxine 200 mcg tablet 200 mcg PO DAILY Qty: 90 3RF loratadine 10 mg tablet 10 mg PO DAILY Qty: 90 3RF metformin 500 mg tablet 500 mg PO BID Qty: 180 3RF Rx Instructions: 1 tab every 12 hours naproxen 500 mg tablet 500 mg PO BID MDD 1500mg Qty: 90 4RF Rx Instructions: Take 2 tabs every AM and 1 tab every evening norethindrone acetate 5 mg tablet 5 mg PO DAILY Qty: 90 4RF Rx Instructions: Take 1 tab PO daily nystatin 100,000 unit/gram powder 1 applic Topical TID PRN (Reason: rash) Qty: 60 3RF Rx Instructions: Apply to groin rash three times per day in between steroid cream applications. pantoprazole 40 mg tablet,delayed release (DR/EC) 40 mg PO DAILY Qty: 90 3RF (DME) pen needle, diabetic [Pen Needle] 31 gauge x 5/16 needle 1 ea Miscellaneous QID Qty: 400 3RF Rx Instructions: Dx E11.65 Pt using long- acting and mealtime insulin. sumatriptan succinate [Imitrex] 50 mg tablet 50 mg PO PRN MDD 200mg Qty: 30 3RF Rx Instructions: triamcinolone acetonide 0.1 % cream 1 applic Topical BID PRN (Reason: rash) Qty: 30 2RF Rx Instructions: Apply to rash on breast 0.025% valacyclovir 1 gram tablet 1,000 mg PO BID PRN (Reason: Herpes outbreak) Qty: 30 1RF Rx Instructions: Take 1 tab two times per day for 3 days PRN liraglutide 0.6 mg/0.1 mL (18 mg/3 mL) pen injector 1.8 mg subcut DAILY Qty: 9 4RF GlucaGen HypoKit 1 mg recon soln 1 mg subcut Q20M PRN (Reason: hypoglycemia) Qty: 1 0RF Rx Instructions: until target blood sugar attained mupirocin 2 % ointment 1 applic TP BID Qty: 44 3RF COVID-19 vacc,mRNA(Moderna)-PF 100 mcg/0.5 mL suspension 0.25 ml IM ONCE Qty: 0.25 0RF dextromethorphan-guaifenesin [Diabetic Tussin DM] 10-100 mg/5 mL liquid 10 ml PO Q4H PRN (Reason: cough/ congestion) Qty: 500 0RF (DME) ConferenceEdge G6 Transmitter Device See Rx Instructions .ROUTE .MEDSUPPLY Qty: 1 4RF Rx Instructions: As directed (DME) Dexcom G6 Sensor Device See Rx Instructions .ROUTE .MEDSUPPLY Qty: 3 12RF Rx Instructions: As directed Vyvanse 40 mg capsule 40 mg PO DAILY MDD 40mg Qty: 30 0RF Discharge Instructions Instructions: Tendinitis (ED) Additional Instructions: It is suspected that you have a tendinitis or an overuse injury of your right thumb. There were no obvious abnormal findings on your x-ray but the final report is still pending and you will be notified if there are any additional findings. Rest, ice, and elevate the affected area as much as possible. Wear the splint as much as possible to help with pain relief. Alternate tylenol and motrin as needed and directed for pain. You can follow-up with your primary care doctor for reevaluation and for referral to orthopedics if needed. Return immediately to the emergency department if you develop any worsening or new concerning symptoms. Referrals: Neel Cabrera MD [ [facility]FF [facility]YSICIAN] - Discharge Data Discharge Date/Time-TO BE ENTERED AT DEPARTURE: 01/11/22 04:52 Discharge Physician: Neelam Norman Medical Decision Making 46-year-old jbhqn-yveq-szuakkil female presents with pain in her right thumb since yesterday. Denies any known injury but is frequently using her right hand with writing, computer use and knitting. She is afebrile and appears nontoxic. She has mild to moderate edema of the right thumb extending from the base to her distal phalanx. There is no obvious erythema, crepitus or deformity. She is unable to perform Petr test secondary to pain in her right thumb. She has no right snuffbox tenderness and no significant pain to palpation or range of motion in her right wrist. Suspected de Quervain's tendinitis. History and presentation does not appear consistent with a pyogenic flexor tendinitis or septic joint. Will refer for x- ray and give a dose of ibuprofen and Tylenol. X-ray reviewed and negative. Patient placed in thumb spica splint. Given orthopedic follow-up information. Advised to rest thumb as much as possible. Advised to follow up with the primary care doctor for re-evaluation. Usual and customary return precautions given prior to discharge. Medical Records Medical records reviewed: Yes I reviewed the patient's medical records. Imaging Data Radiologic Study: Radiologist's impression: XR Right Finger(s) Exam date and time: 01/11/2022 4:12 AM Age: 46 years old Clinical indication: Finger(s); Patient HX: Pain at the base of right thumb, lrom TECHNIQUE: Imaging protocol: Radiologic exam of the Right fingers. Views: Minimum 2 views. COMPARISON: No relevant prior studies available. FINDINGS: Bones/joints: Three views of the right thumb reveal no acute fracture or dislocation. No osteophytes or erosions are seen at the 1st metacarpophalangeal joint. Soft tissues: No gross soft tissue abnormality is demonstrated. IMPRESSION: No acute fracture or other osseous abnormality is seen in the right thumb. HPI General Date/Time Provider Initiated Documentation: 01/11/22 03:46 . Limitations to Documentation: no limitations . HPI Narrative: Patient is a 46-year-old vrwoy-rfdm-pqkqatuy female presents with right thumb pain since yesterday. Patient states she is frequently using the computer, knitting and using her right hand. She denies any known injury or fever. She states she used ice yesterday on her right thumb without significant relief. She states she has not taken any Tylenol or ibuprofen because she has not had an at home. She denies any significant pain in her right wrist. Related Data Home Medications Medication Instructions Recorded Confirmed blood-glucose meter,continuous #1 ea 06/16/20 12/17/21 (Dexcom G6 Payloader Operator misc) cyanocobalamin (vitamin B-12) 500 500 mcg PO DAILY #90 tabs 06/16/20 12/17/21 mcg tablet fluoxetine 40 mg capsule 40 mg PO DAILY depression #90 caps 06/16/20 12/17/21 glucose 4 gram chewable tablet 4 g PO Q15M PRN hypoglycemia #7 06/16/20 12/17/21 (Dex4 Glucose) tabs insulin aspart U-100 100 unit/mL See Rx Instructions subcut TID 06/16/20 12/17/21 (3 mL) subcutaneous pen (Novolog E11.65, TID, 12-20units depending Flexpen U-100 Insulin aspart) on FS & carbs #15 mL insulin degludec 200 unit/mL (3 80 - 100 unit (0.4 - 0.5 mL) 06/16/20 12/17/21 mL) subcutaneous pen (Tresiba subcut DAILY Diabetes Mellitus #45 FlexTouch U-200 insulin) mL levocetirizine 5 mg tablet (Xyzal) 5 mg PO PRN #30 tab-caps 06/16/20 12/17/21 levothyroxine 200 mcg tablet 200 mcg PO DAILY #90 tab-caps 06/16/20 12/17/21 liraglutide 0.6 mg/0.1 mL (18 mg/3 1.8 mg (0.3 mL) subcut DAILY #9 mL 06/16/20 12/17/21 mL) subcutaneous pen injector loratadine 10 mg tablet 10 mg PO DAILY #90 tab-caps 06/16/20 12/17/21 metformin 500 mg tablet 500 mg PO BID #180 tabs 06/16/20 12/17/21 naproxen 500 mg tablet 500 mg PO BID Inflamation #90 tabs 06/16/20 12/17/21 norethindrone acetate 5 mg tablet 5 mg PO DAILY #90 tab-caps 06/16/20 12/17/21 nystatin 100,000 unit/gram topical 1 applic topical TID PRN rash #60 06/16/20 12/17/21 powder grams pantoprazole 40 mg tablet,delayed 40 mg PO DAILY #90 tab-caps 06/16/20 12/17/21 release pen needle, diabetic 31 gauge x #400 ea 06/16/20 12/17/2107/20 (Pen Needle) sumatriptan succinate 50 mg tablet 50 mg PO PRN #30 tab-caps 06/16/20 12/17/21 (Imitrex) triamcinolone acetonide 0.1 % 1 applic topical BID PRN rash #30 06/16/20 12/17/21 topical cream grams valacyclovir 1 gram tablet 1,000 mg PO BID PRN Herpes 06/16/20 12/17/21 outbreak #30 tabs glucagon (human recombinant) 1 mg 1 mg subcut Q20M PRN hypoglycemia 06/17/20 12/17/21 solution for injection (GlucaGen #1 ea HypoKit) topiramate 25 mg tablet (Topamax) 25 mg PO QHS #30 tabs 11/24/20 12/17/21 hydrochlorothiazide 25 mg tablet 25 mg PO DAILY #90 tab-caps 11/25/20 12/17/21 mupirocin 2 % topical ointment 1 applic topical BID skin lesions 12/08/20 12/17/21 #44 grams fluticasone propionate 50 1 spray intranasal BID #16 grams 01/16/21 12/17/21 mcg/actuation nasal spray,suspension ofloxacin 0.3 % eye drops (Ocuflox) See Rx Instructions ophthalmic 05/30/21 12/17/21 (eye) .COMPLEX #10 mL dextromethorphan-guaifenesin 10 10 ml PO Q4H PRN cough/ congestion 09/03/21 12/17/21 mg-100 mg/5 mL oral liquid #500 mL (Diabetic Tussin DM) blood-glucose sensor (Dexcom G6 #3 ea 09/17/21 12/17/21 Sensor device) blood-glucose transmitter (Dexcom #1 ea 09/17/21 12/17/21 G6 Transmitter device) lisdexamfetamine 40 mg capsule 40 mg PO DAILY #30 caps 12/04/21 12/17/21 (Vyvanse) lisinopril 2.5 mg tablet 5 mg PO DAILY #180 tab-caps 12/17/21 12/17/21 Previous Rx's Medication Instructions Recorded blood-glucose meter,continuous #1 ea 06/16/20 (Dexcom G6 Payloader Operator misc) cyanocobalamin (vitamin B-12) 500 500 mcg PO DAILY #90 tabs 06/16/20 mcg tablet fluoxetine 40 mg capsule 40 mg PO DAILY depression #90 caps 06/16/20 glucose 4 gram chewable tablet 4 g PO Q15M PRN hypoglycemia #7 06/16/20 (Dex4 Glucose) tabs insulin aspart U-100 100 unit/mL See Rx Instructions subcut TID 06/16/20 (3 mL) subcutaneous pen (Novolog E11.65, TID, 12-20units depending Flexpen U-100 Insulin aspart) on FS & carbs #15 mL insulin degludec 200 unit/mL (3 80 - 100 unit (0.4 - 0.5 mL) 06/16/20 mL) subcutaneous pen (Tresiba subcut DAILY Diabetes Mellitus #45 FlexTouch U-200 insulin) mL levocetirizine 5 mg tablet (Xyzal) 5 mg PO PRN #30 tab-caps 06/16/20 levothyroxine 200 mcg tablet 200 mcg PO DAILY #90 tab-caps 06/16/20 liraglutide 0.6 mg/0.1 mL (18 mg/3 1.8 mg (0.3 mL) subcut DAILY #9 mL 06/16/20 mL) subcutaneous pen injector loratadine 10 mg tablet 10 mg PO DAILY #90 tab-caps 06/16/20 metformin 500 mg tablet 500 mg PO BID #180 tabs 06/16/20 naproxen 500 mg tablet 500 mg PO BID Inflamation #90 tabs 06/16/20 norethindrone acetate 5 mg tablet 5 mg PO DAILY #90 tab-caps 06/16/20 nystatin 100,000 unit/gram topical 1 applic topical TID PRN rash #60 06/16/20 powder grams pantoprazole 40 mg tablet,delayed 40 mg PO DAILY #90 tab-caps 06/16/20 release pen needle, diabetic 31 gauge x #400 ea 06/16/2007/20 (Pen Needle) sumatriptan succinate 50 mg tablet 50 mg PO PRN #30 tab-caps 06/16/20 (Imitrex) triamcinolone acetonide 0.1 % 1 applic topical BID PRN rash #30 06/16/20 topical cream grams valacyclovir 1 gram tablet 1,000 mg PO BID PRN Herpes 06/16/20 outbreak #30 tabs glucagon (human recombinant) 1 mg 1 mg subcut Q20M PRN hypoglycemia 06/17/20 solution for injection (GlucaGen #1 ea HypoKit) topiramate 25 mg tablet (Topamax) 25 mg PO QHS #30 tabs 11/24/20 hydrochlorothiazide 25 mg tablet 25 mg PO DAILY #90 tab-caps 11/25/20 mupirocin 2 % topical ointment 1 applic topical BID skin lesions 12/08/20 #44 grams fluticasone propionate 50 1 spray intranasal BID #16 grams 01/16/21 mcg/actuation nasal spray,suspension ofloxacin 0.3 % eye drops (Ocuflox) See Rx Instructions ophthalmic 05/30/21 (eye) .COMPLEX #10 mL dextromethorphan-guaifenesin 10 10 ml PO Q4H PRN cough/ congestion 09/03/21 mg-100 mg/5 mL oral liquid #500 mL (Diabetic Tussin DM) blood-glucose sensor (Dexcom G6 #3 ea 09/17/21 Sensor device) blood-glucose transmitter (Dexcom #1 ea 09/17/21 G6 Transmitter device) lisdexamfetamine 40 mg capsule 40 mg PO DAILY #30 caps 12/04/21 (Vyvanse) lisinopril 2.5 mg tablet 5 mg PO DAILY #180 tab-caps 12/17/21 Allergies Allergy/AdvReac Type Severity Reaction Status Date / Time Sulfa (Sulfonamide Allergy Severe Anaphylaxsi Verified 12/17/21 13:29 Antibiotics) s latex Allergy Intermediate Hives Verified 12/17/21 13:29 fentanyl AdvReac Intermediate went Verified 12/17/21 13:29 outside of her body, felt uncomfortable zolpidem tartrate AdvReac Mild sleep walks Verified 12/17/21 13:29 [From Ambien] Dust, cat dander Allergy Intermediate Hives Uncoded 12/17/21 13:29 Environmental Allergies Allergy Intermediate Rash Uncoded 12/17/21 13:29 General Stated Complaint: Orthopedic RODNEY: 3 Review of Systems All systems reviewed & are unremarkable except as noted in HPI and below Constitutional Constitutional: Reports as per HPI, Denies chills and Denies fever(s) Eyes Eyes: Denies blurry vision ENT Ears, Nose, Mouth, and Throat: Denies dizziness, Denies sore throat and Denies throat swelling Cardiovascular Cardiovascular: Denies chest pain and Denies dyspnea Respiratory Respiratory: Denies cough and Denies dyspnea Gastrointestinal Gastrointestinal: Denies abdominal pain, Denies diarrhea and Denies vomiting Genitourinary Genitourinary: Denies hematuria and Denies dysuria Musculoskeletal Musculoskeletal: Denies back pain and Denies numbness Comments: pain in base of right thumb Integumentary/Breasts Skin/Breast: Denies lesions and Denies rash Neurologic Neurologic: Denies dizziness, Denies localized weakness and Denies numbness Allergic/Immunologic Allergic/Immunologic: Denies throat swelling PFSH All Active Problems (Updated 01/11/22 @ 04:23 by Neelam Norman DO) Tendinitis of thumb (Acute) COVID-19 (Acute ~08/25/21) Post traumatic stress disorder (PTSD) (Acute) Intercostal myalgia (Acute) Left Primary osteoarthritis of both knees (Acute) Obesity (BMI 30-39.9) (Acute) Diabetic retinopathy (Acute ~01/01/21) 01/01/21 MILD BACKGROUND RETINOPATHY-DR. RODRIGUEZ MDD (major depressive disorder) (Chronic) Hypothyroidism, acquired (Acute) Hypertension (Chronic) Diabetes type 2, uncontrolled (Acute 04/22/15) ADD (attention deficit disorder) (Acute) Foot ulcer (Acute) Right ankle Atypical pigmented skin lesion (Acute) Fatigue (Acute) Skin lesion of scalp (Acute) 05/2020 - Biopsy negative at [facility] 05/2021 - Recurrent Sleep apnea (Chronic 05/28/12) Unspecified mental or behavioral problem (Acute) Periodic non-compliance with treatment program. Chronic pain disorder (Chronic) Medical History Abnormal uterine bleeding (AUB) on Norethindrone for suppression of menses. Acid reflux (01/25/14) Anxiety (01/25/14) Changes in vision Constipation Diabetic feet Diarrhea Genital herpes HSV-1 primary outbreak. Herpes simplex 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 Father Alcohol abuse Prostate cancer Sister No problems noted. Brother Stroke x2 (five years apart) Maternal Grandfather Essential hypertension Heart disease Hyperlipidemia Paternal Grandfather , AGE 57 Myocardial infarction Brain tumor Maternal Grandmother , AGE 85 Essential hypertension Paternal Grandmother , AGE 85 Personal history of malignant neoplasm COLON MATERNAL AUNT Essential hypertension Cancer MATERNAL UNCLE Essential hypertension Social History Smoking/Tobacco Use Status: Former Tobacco Use Quit Date: 03/07/10 Pack-years: 10 Second Hand Exposure: Yes Smoking risk assessment performed?: Yes Alcohol Intake: former Drug use: Never Substance use type: former substance user Household members: other Details: 2 Number of Children: 4 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 Pets and animals: Yes Pets and animals: cat(s) Current gender identity: female What type of physical activity do you participate in: walking and swimming Duration: 15-30 minutes/day Frequency: 1-2 times per week Jailyn/Yazidi: No preference Special jailyn needs: Yes (SINGING) Seatbelt use: always Helmet use: Yes Helmet use: always Do you feel safe at home: Yes Do you feel safe in your relationship?: Yes Exam Const General: cooperative, healthy appearing and no acute distress HENMT Head: normal to inspection Mouth: oral mucosae normal Eyes General: appearance normal, both eyes and all related structures Neck Neck: normal visual inspection Resp Effort & Inspection: normal respiratory effort and able to speak in complete sentences Cardio Rate: regular rate Skin General skin exam: no rashes or lesions noted Neuro General: patient alert, patient awake and patient oriented x3 Motor: muscle tone normal throughout Extrem Hand/finger images: 1. Right thumb has mild to moderate edema along dorsal and volar aspect extending from the base of the thumb to the distal phalanx. There is no significant erythema. Patient is unable to perform Finklestein's test secondary to significant pain in the base of her right thumb and just proximal to this. There is no abscess or crepitus. Normal capillary refill. Right second through fifth fingers appear normal to inspection. There is no right snuffbox tenderness or significant pain with range of motion in her right wrist. Right radial and ulnar pulses intact. Psych Appearance: grossly normal Affect: normal affect
--- NOTE | 2022-01-11 04:00 | DI.RAD_ITS ---
Exam(s) XR THUMB RT EXAM: XR THUMB RT CLINICAL HISTORY: pain base of R thumb. TECHNIQUE: 2D digital imaging was performed. COMPARISON: No exams were available for comparison FINDINGS: 3 views There is no evidence of acute fracture or dislocation. No obvious degenerative changes. Bone densit y normal. No osseous lesions nor erosions. No radiopaque foreign body. IMPRESSION: No significant osseous findings. DATA REPOSITORY: RADIATION DOSE DELIVERED:
[2022-01-11] MEDS: Ibuprofen 600 MG TAB PO (04:09)
[2022-01-11] MEDS: Acetaminophen 325 MG TAB 650 MG PO (04:09)
--- NOTE | 2022-01-11 05:11 | DI.VRAD_ITS ---
PROCEDURE INFORMATION: Exam: XR Right Finger(s) Exam date and time: 01/11/2022 4:12 AM Age: 46 years old Clinical indication: Finger(s); Patient HX: Pain at the base of right thumb, lrom TECHNIQUE: Imaging protocol: Radiologic exam of the Right fingers. Views: Minimum 2 views. COMPARISON: No relevant prior studies available. FINDINGS: Bones/joints: Three views of the right thumb reveal no acute fracture or dislocation. No osteophytes or erosions are seen at the 1st metacarpophalangeal joint. Soft tissues: No gross soft tissue abnormality is demonstrated. IMPRESSION: No acute fracture or other osseous abnormality is seen in the right thumb. Dictated and Authenticated by: Brady Garcia MD. Ordering:EMI Richter MD
== END 2022-01-11 04:52 | disposition home or self-care (01) ==
PROVIDERS: Emergency Provider Physician Assistant; PCP Nurse Practitioner Family
DX: M77.8 Other enthesopathies, not elsewhere classified (principal); M79.644 Pain in right finger(s)
CPT/HCPCS: 29125; 99283; 73140

== ENCOUNTER 2022-02-04 03:45 | Outpatient (CLI) | payer MEDICAID, SELFPAY ==
[2022-02-04 12:17] LABS: Bilirubin Negative (Negative); Blood Trace-lysed (Negative); Clarity Cloudy (Clear); Glucose >=1000 mg/dL (Negative); Ketones Negative (Negative); Leukocyte Esterase Trace (Negative); Nitrite Positive (Negative); Specific Gravity 1.025 (1.005-1.025); Urobilinogen 0.2 EU/dL (Up TO 0.2)
[2022-02-04 12:24] LABS: Bacteria Many HPF (Negative); C & S Indicated? Yes; Casts 0-2 Hyaline LPF (Negative); Crystals Negative HPF (Negative); Epithelial Cells Few HPF (Negative); Mucus Trace (Negative); WBC >50 HPF (0-5)
[2022-02-04 12:49] LABS: ALT 97 U/L (14-59); AST 180 U/L (15-37); Albumin 3.8 g/dL (3.4-5.0); Alkaline Phosphatase 174 U/L (46-116); Anion Gap 8.1 mmol/L (3-11); BUN 13 mg/dL (7-18); Bilirubin, Total 0.6 mg/dL (0.2-1.0); CO2 27.9 mmol/L (21.0-32.0); Calcium 9.9 mg/dL (8.5-10.1); Chloride 96 mmol/L (98-107); Cholesterol 252 mg/dL (<200); Estimated GFR 69.49 (mL/min/1.73m2); Glucose 403 mg/dL (74-106); HDL Cholesterol 31 mg/dL (40-60); Potassium 4.1 mmol/L (3.5-5.1); Sodium 132 mmol/L (136-145); TSH (W/Ref FT4) 9.94 uIU/mL (0.36-3.74); Total Protein 8.6 g/dL (6.4-8.2); Triglyceride 626 mg/dL (<150)
[2022-02-04 13:22] LABS: FREE T4 0.83 ng/dL (0.76-1.46)
[2022-02-04 14:25] LABS: LDL CHOLESTEROL 104 mg/dL (<100)
== END 2022-02-04 03:46 | disposition home or self-care (01) ==
PROVIDERS: PCP Nurse Practitioner Family; Visit Provider Nurse Practitioner Family
DX: I10 Essential (primary) hypertension (principal); E78.5 Hyperlipidemia, unspecified; E03.9 Hypothyroidism, unspecified; F32.89 Other specified depressive episodes; R30.0 Dysuria
CPT/HCPCS: 36415; 80053; 80061; 83721; 87077; 81003; 81015; 84439; 84443; 87086; 87186

== ENCOUNTER 2022-04-27 21:39 | Outpatient (REF) | payer MEDICAID, SELFPAY ==
[2022-04-27 22:08] LABS: Bacteria Negative HPF (Negative); Bilirubin Negative (Negative); Blood Trace-intact (Negative); Clarity Clear (Clear); Crystals Negative HPF (Negative); Epithelial Cells Few HPF (Negative); Glucose 500 mg/dL (Negative); Ketones Negative (Negative); Leukocyte Esterase Negative (Negative); Nitrite Negative (Negative); Other Cells Negative (Negative); Specific Gravity 1.015 (1.005-1.025); Urobilinogen 0.2 mg/dL (Up to 0.2); WBC 0-2 HPF (0-5)
[2022-04-27 22:09] LABS: C & S Indicated? No; Casts Negative LPF (Negative); Mucus Negative (Negative)
[2022-04-27 22:18] LABS: COMMENT (LAB VIEW ONLY) 49.84 mg/dL
[2022-04-27 22:22] LABS: Microalb ug/mg Crea 149.9 ug/mg Cr
== END 2022-04-27 21:40 | disposition home or self-care (01) ==
LOC: LBN 21:39
PROVIDERS: PCP Nurse Practitioner Family; Visit Provider Nurse Practitioner Family
DX: E66.9 Obesity, unspecified (principal); E11.65 Type 2 diabetes mellitus with hyperglycemia; R30.0 Dysuria
CPT/HCPCS: 81003; 81015; 82043; 82570

== ENCOUNTER 2022-05-10 11:50 | Day surgery (SDC) | payer MEDICAID, SELFPAY ==
--- NOTE | 2022-05-09 21:08 | PDOC.DSDIS_ITS ---
Date of service: 05/10/22 Time of Service: 14:04 Discharge Plan Disposition Patient Disposition: Home Condition: Good Discharge Details Reason For Visit: Screening colonoscopy Attending Provider: Reymundo Jules Primary Care Provider: Yadira Ngo Home Meds and New Rx's Prescriptions: Continued hydrochlorothiazide 25 mg tablet 25 mg PO DAILY Qty: 90 3RF ofloxacin [Ocuflox] 0.3 % drops See Rx Instructions ophthalmic (eye) .COMPLEX Qty: 10 0RF Rx Instructions: put 2 drps into both eye(s) every 2 h x 2 days while awake, then 2 drps 4 times/day days 3-7 ophthalmic (eye) lisinopril 2.5 mg tablet 5 mg PO DAILY Qty: 180 3RF loratadine 10 mg tablet 10 mg PO DAILY Qty: 90 3RF levothyroxine 200 mcg tablet 200 mcg PO DAILY Qty: 90 3RF fluoxetine 40 mg capsule 40 mg PO DAILY Qty: 90 4RF metformin 500 mg tablet 500 mg PO BID Qty: 180 3RF Rx Instructions: 1 tab every 12 hours fluticasone propionate 50 mcg/actuation spray,suspension 1 spray intranasal BID PRN Rx Instructions: administer into each nostril topiramate [Topamax] 25 mg tablet 25 mg PO QHS PRN cephalexin 500 mg tablet 500 mg PO Q8H Patient Comments: denae perez recently (DME) Dexcom G6 [employer] Misc See Rx Instructions .ROUTE .MEDSUPPLY Qty: 1 0RF Rx Instructions: As directed glucose [Dex4 Glucose] 4 gram tablet,chewable 4 g PO Q15M PRN (Reason: hypoglycemia) Qty: 7 2RF Rx Instructions: until response levocetirizine [Xyzal] 5 mg tablet 5 mg PO PRN Qty: 30 3RF Hold Instructions: Home Medication placed on hold at Doctor's office nystatin 100,000 unit/gram powder 1 applic Topical TID PRN (Reason: rash) Qty: 60 3RF Rx Instructions: Apply to groin rash three times per day in between steroid cream applications. (DME) pen needle, diabetic [Pen Needle] 31 gauge x 5/16 needle 1 ea Miscellaneous QID Qty: 400 3RF Rx Instructions: Dx E11.65 Pt using long- acting and mealtime insulin. sumatriptan succinate [Imitrex] 50 mg tablet 50 mg PO PRN MDD 200mg Qty: 30 3RF Rx Instructions: triamcinolone acetonide 0.1 % cream 1 applic Topical BID PRN (Reason: rash) Qty: 30 2RF Rx Instructions: Apply to rash on breast 0.025% liraglutide 0.6 mg/0.1 mL (18 mg/3 mL) pen injector 1.8 mg subcut DAILY Qty: 9 4RF GlucaGen HypoKit 1 mg recon soln 1 mg subcut Q20M PRN (Reason: hypoglycemia) Qty: 1 0RF Rx Instructions: until target blood sugar attained COVID-19 vacc,mRNA(Moderna)-PF 100 mcg/0.5 mL suspension 0.25 ml IM ONCE Qty: 0.25 0RF (DME) Dexcom G6 Transmitter Device See Rx Instructions .ROUTE .MEDSUPPLY Qty: 1 4RF Rx Instructions: As directed Vyvanse 40 mg capsule 40 mg PO DAILY MDD 40mg Qty: 30 0RF mupirocin 2 % ointment 1 applic TP BID Qty: 44 3RF atorvastatin [Lipitor] 40 mg tablet 40 mg PO HS Qty: 90 3RF magnesium oxide 400 mg magnesium capsule 400 mg PO DAILY Qty: 90 3RF (DME) Dexcom G6 Sensor Device See Rx Instructions .ROUTE .MEDSUPPLY Qty: 3 12RF Rx Instructions: As directed valacyclovir 1 gram tablet 1,000 mg PO BID PRN (Reason: Herpes outbreak) Qty: 30 1RF Rx Instructions: Take 1 tab two times per day for 3 days PRN pantoprazole 40 mg tablet,delayed release (DR/EC) 40 mg PO DAILY Qty: 90 3RF norethindrone acetate 5 mg tablet 5 mg PO DAILY Qty: 90 4RF Rx Instructions: Take 1 tab PO daily naproxen 500 mg tablet 500 mg PO BID MDD 1500mg Qty: 90 4RF Rx Instructions: Take 2 tabs every AM and 1 tab every evening insulin degludec [Tresiba FlexTouch U-200] 200 unit/mL (3 mL) insulin pen 80 - 100 unit subcut DAILY Qty: 45 3RF Rx Instructions: As directed insulin aspart U-100 [Novolog FlexPen U-100 Insulin] 100 unit/mL (3 mL) insulin pen See Rx Instructions Sub-Q TID Qty: 15 3RF Hold Instructions: Home Medication placed on hold at Doctor's office Dose Instruction: Units determined by FS and carb intake Sub-Q TID; E11.65 Patient Comments: pt doesnt remember how many units Rx Instructions: Units determined by FS and carb intake Sub-Q TID; E11.65 loperamide 2 mg Tablet Discontinued polyethylene glycol 3350 17 gram/dose powder 238 g PO ONCE Qty: 238 0RF Rx Instructions: take per colonoscopy instructions bisacodyl [Dulcolax (bisacodyl)] 5 mg tablet,delayed release (DR/EC) 5 mg PO ONCE Qty: 4 0RF Rx Instructions: take per colonoscopy instructions Discharge Instructions Instructions: Diverticulosis (GEN), Diverticulosis Diet (GEN) Additional Instructions: Evita, we were able to complete your colonoscopy today without any difficulty. You have some sigmoid diverticulosis. I have attached some information here regarding general management. Essentially, the mainstay of treatment is avoiding trigger foods that may cause pain and discomfort, and trying to minimize symptoms of constipation. Based on your bowel patterns, it may be useful to add some more fiber to your diet to create more bulky stools. Psyllium (which is the active ingredient in things like Benefiber and Metamucil) might be a useful addition to your diet. Based on your family history of colon cancer, you should get another screening colonoscopy in 5 years. 1. If tolerated, consume a soft, low fiber diet for 1-2 days. 2[address] Do not drive, drink alcohol, operate machinery, make critical decisions, or do activities that require coordination or balance for 24 hours. 3. Because air was put into your colon during the procedure, expelling air from your rectum (passing gas or farting) is normal. 4. You may not have a bowel movement for 1-3 days because of the colonoscopy prep. This is normal. 5. Go directly to the emergency room if you notice any of the following: Develop chills (warm to touch), or if you have a thermometer and your temperature is above 101 Difficulty breathing or difficultly swallowing Persistent vomiting Severe abdominal pain, other than gas cramps Severe chest pain Black, tarry stools Any bleeding ? exceeding one tablespoon 6. Call your physician if the site where your intravenous was started becomes red, swollen, painful, and warm to touch. 7. Your physician has reviewed your pre-procedure medications. Please continue to take those medications as previously ordered. You will be given specific information/education regarding any changes to your medications before leaving. Activity:: Activity as Tolerated Diet:: As Tolerated Discharge Orders Discharge Orders: Discharge Order (Routine); Ordered 05/09/22 Ordered By: Reymundo Jules DS: Diagnosis Discharge Diagnosis (1) Family history of colon cancer in father: Status: Acute Asessment and Plan: Occasional diverticulosis, but no other signs of polyps or colon cancers. Recommend follow-up in 5 years based on first-degree family history of colon cancer
--- NOTE | 2022-05-09 21:10 | W.COLOREPORT ---
Date of service: 05/10/22 Time of Service: 14:08 Colonoscopy Report Date of procedure: 05/10/22 Pre-op diagnosis general: Screening colonoscopy Post-op diagnosis procedure note: other (Occasional diverticulosis) Procedure: Colonoscopy Surgeon: Reymundo Jules Anesthesia Type: General:No Airway Estimated blood loss (mL): 0 Pathology: none sent Complications: None Disposition: same day Indications: Evita is a 47 year old woman with a first degree relative with colon cancer. She needs a screening colonoscopy Prep: Miralax/Dulcolax Procedure Start Time: 13:36 Procedure End Time: 13:51 Retraction Time: 11 Findings: Occasional sigmoid diverticulosis Procedure Description: After the induction of monitored anesthetic care, and with the patient in left lateral decubitus position, I began by performing an external anorectal exam.? Perineum and skin were normal, as was the anal verge.? There was no evidence of external hemorrhoids.? Next, I performed a digital rectal exam.? I did not appreciate any abnormal findings.? Next, I advanced a colonoscope into the rectal vault.? I performed retroflexion.? This appeared normal to me.? Using insufflation, I then advanced the colonoscope beyond the rectal folds and into the sigmoid colon before advancing towards the cecum.? There were some occasional sigmoid diverticula. The quality of the prep was adequate.? The scope was noted to be in the cecum by identification of the ileocecal valve and appendiceal orifice.? I then began withdrawing the colonoscope using repeated irrigation as necessary for full evaluation of the colonic mucosa. ?Once the scope was withdrawn to the level of the rectum, great care was taken to examine portions of the rectal folds.? Finally, the scope was withdrawn and the patient was brought to the same-day surgery recovery unit as the anesthetic wore off. ?The findings and instructions were shared with the patient prior to discharge.
[2022-05-10 12:33] VITALS: BP 155/92; PULSE 79; RESP 14; TEMP 36.8; O2SAT 98
--- NOTE | 2022-05-10 12:51 | ANES.PREOP_ITS ---
General Info Date of Service Date Performed: 05/10/22 Height: 5 ft 9 in Weight: 101.4 kg Body Mass Index (BMI): 33.0 Surgical Procedure: Operation Date: 05/10/22 10:35 Proposed Procedure Side Surgeon p Colonoscopy w/Biopsy possible Polypectomy Reymundo Jules MD Meds Allergies and Home Medications Allergies Allergy/AdvReac Type Severity Reaction Status Date / Time Sulfa (Sulfonamide Allergy Severe Anaphylaxsi Verified 05/10/22 12:42 Antibiotics) s latex Allergy Intermediate Hives Verified 05/10/22 12:42 fentanyl AdvReac Intermediate went Verified 05/10/22 12:42 outside of her body, felt uncomfortable zolpidem tartrate AdvReac Mild sleep walks Verified 05/10/22 12:42 [From Ambien] Dust, cat dander Allergy Intermediate Hives Uncoded 05/10/22 12:42 Environmental Allergies Allergy Intermediate Rash Uncoded 05/10/22 12:42 Home Medication Medication Instructions Recorded blood-glucose meter,continuous #1 ea 06/16/20 (Dexcom G6 [employer]) glucose 4 gram chewable tablet 4 g PO Q15M PRN hypoglycemia #7 06/16/20 (Dex4 Glucose) tabs levocetirizine 5 mg tablet (Xyzal) 5 mg PO PRN #30 tab-caps 06/16/20 liraglutide 0.6 mg/0.1 mL (18 mg/3 1.8 mg (0.3 mL) subcut DAILY #9 mL 06/16/20 mL) subcutaneous pen injector nystatin 100,000 unit/gram topical 1 applic topical TID PRN rash #60 06/16/20 powder grams pen needle, diabetic 31 gauge x #400 ea 06/16/20 5/16 (Pen Needle) sumatriptan succinate 50 mg tablet 50 mg PO PRN #30 tab-caps 06/16/20 (Imitrex) triamcinolone acetonide 0.1 % 1 applic topical BID PRN rash #30 06/16/20 topical cream grams glucagon (human recombinant) 1 mg 1 mg subcut Q20M PRN hypoglycemia 06/17/20 solution for injection (GlucaGen #1 ea HypoKit) hydrochlorothiazide 25 mg tablet 25 mg PO DAILY #90 tab-caps 11/25/20 ofloxacin 0.3 % eye drops (Ocuflox) See Rx Instructions ophthalmic 05/30/21 (eye) .COMPLEX #10 mL lisinopril 2.5 mg tablet 5 mg PO DAILY #180 tab-caps 12/17/21 fluoxetine 40 mg capsule 40 mg PO DAILY depression #90 caps 02/24/22 levothyroxine 200 mcg tablet 200 mcg PO DAILY #90 tab-caps 02/24/22 loratadine 10 mg tablet 10 mg PO DAILY #90 tab-caps 02/24/22 metformin 500 mg tablet 500 mg PO BID #180 tabs 02/24/22 atorvastatin 40 mg tablet (Lipitor) 40 mg PO HS #90 tab-caps 04/27/22 blood-glucose transmitter (Dexcom #1 ea 04/27/22 G6 Transmitter device) lisdexamfetamine 40 mg capsule 40 mg PO DAILY #30 caps 04/27/22 (Vyvanse) magnesium oxide 400 mg PO DAILY #90 caps 04/27/22 mupirocin 2 % topical ointment 1 applic topical BID skin lesions 04/27/22 #44 grams blood-glucose sensor (Dexcom G6 #3 ea 04/28/22 Sensor device) insulin aspart U-100 100 unit/mL See Rx Instructions subcut TID 04/28/22 (3 mL) subcutaneous pen (Novolog E11.65, TID, 12-20units depending FlexPen U-100 Insulin aspart) on FS & carbs #15 mL insulin degludec 200 unit/mL (3 80 - 100 unit (0.4 - 0.5 mL) 04/28/22 mL) subcutaneous pen (Tresiba subcut DAILY Diabetes Mellitus #45 FlexTouch U-200 insulin) mL naproxen 500 mg tablet 500 mg PO BID Inflamation #90 tabs 04/28/22 norethindrone acetate 5 mg tablet 5 mg PO DAILY #90 tab-caps 04/28/22 pantoprazole 40 mg tablet,delayed 40 mg PO DAILY #90 tab-caps 04/28/22 release valacyclovir 1 gram tablet 1,000 mg PO BID PRN Herpes 04/28/22 outbreak #30 tabs cephalexin 500 mg tablet 500 mg PO Q8H 04/29/22 fluticasone propionate 50 1 spray intranasal BID PRN 04/29/22 mcg/actuation nasal spray,suspension topiramate 25 mg tablet (Topamax) 25 mg PO QHS PRN 04/29/22 loperamide 2 mg tablet mg 05/10/22 Current Visit Medications: Current Medications Generic Name Dose Route Start Last Admin Trade Name Gurpreet PRN Reason Stop Dose Admin Hyoscyamine Sulfate 0.125 mg 05/09/22 21:13 Hyoscyamine 0.125 Mg Sl/Oral/Chew SL DIRECTED PRN Ringer's Solution 1,000 mls @ 80 mls/hr 05/10/22 06:00 IV 06/06/22 23:59 INFUSION [facility] IV Miscellaneous Supplies 1 each 05/10/22 06:00 Iv Access IV 06/06/22 23:59 DIRECTED [facility] Lorazepam 0.5 mg 05/10/22 06:00 Lorazepam 0.5 Mg Tab PO 05/10/22 23:59 .AFTER SEEN BY ANESTHESIA [facility] Ondansetron HCl 4 mg 05/09/22 21:13 Ondansetron 4 Mg/2 Ml Vial IVP Q4H PRN PRN Nausea / Vomiting Sodium Chloride 0 ml 05/10/22 06:00 Normal Saline Flush 10 Ml Syr IV 06/06/22 23:59 PRN PRN Sodium Chloride 0 ml 05/10/22 06:00 Normal Saline 10 Ml Vial IJ 06/06/22 23:59 DIRECTED PRN Sterile Water 0 ml 05/10/22 06:00 Water,Injection,Sterile 10 Ml Vial IJ 06/06/22 23:59 DIRECTED PRN PFSH Active Problems Active Problems: Problem Status Onset Code Family history of colon cancer in father Z80.0 Chronic pain disorder G89.4 Diabetes type 2, uncontrolled 04/22/15 E11.65 Hypertension I10 Hypothyroidism, acquired E03.9 MDD (major depressive disorder) F32.9 Unspecified mental or behavioral problem Sleep apnea 05/28/12 G47.30 Primary osteoarthritis of both knees M17.0 Skin lesion of scalp L98.9 Fatigue R53.83 Atypical pigmented skin lesion L81.9 ADD (attention deficit disorder) F98.8 Diabetic retinopathy ~01/01/21 E11.319 Foot ulcer L97.509 Obesity (BMI 30-39.9) E66.9 Intercostal myalgia M79.18 Post traumatic stress disorder (PTSD) F43.10 Dysuria R30.0 Medical History Medical History Abnormal uterine bleeding (AUB) on Norethindrone for suppression of menses. Acid reflux (01/25/14) Anxiety (01/25/14) Changes in vision Constipation COVID-19 (~08/25/21) Diabetic feet Diarrhea Genital herpes HSV-1 primary outbreak. Herpes simplex 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) hx of, treated successfully w/ norethindrone and continues on norethindrone suppression Surgical History Surgical History Bladder Surgery (~2002) section 1999 & 2010 Cholecystectomy (~2005) CRANIO/MAXILLAFACIAL SURGERY (~2007) Endometrial Biopsy 12/24/13[facility] History of bladder surgery History of section History of gynecological procedure Status post cholecystectomy Status post craniofacial reconstruction Tooth extraction 11/18- EXTRACTION Tobacco Smoking/Tobacco Use Status: Former Tobacco Use Second hand exposure: Yes Alcohol Alcohol Intake: former Substance Use Substance use: Never Substance use type: former substance user Vital Signs and Lab Results Vital Signs Most Recent Vital Signs in EMR: Most Recent Vital Signs Temp Pulse Resp BP Pulse Ox 36.8 C 79 14 155/92 H 98 05/10/22 12:33 05/10/22 12:33 05/10/22 12:33 05/10/22 12:33 05/10/22 12:33 Lab Results Blood Type / Crossmatch: No Data to Display Complete Blood Count: No Data to Display Complete Metabolic Panel: No Data to Display Liver Function Panel: No Data to Display Coagulation Panel: No Data to Display Cardiac Panel: No Data to Display Arterial Blood Gas: No Data to Display Venous Blood Gas: No Data to Display Pancreas Panel: No Data to Display Thyroid Panel: No Data to Display Infectious Disease: No Data to Display Blood Cultures: No Data to Display Toxicology Panel: No Data to Display Panel: No Data to Display Anesthesia Assessment and Plan Anesthesia History Personal History: No History of Anesthesia Complications Family History: No Family History of Anesthesia Complications Exercise Tolerance Exercise Tolerance: Metabolic Equivalents>4 Pertinent Negatives Pertinent Negatives: No Symptoms of GERD (No active symptoms with medications, mild today), No Major Cardiovascular Symptoms or Complaints and No Major Pulmonary Symptoms or Complaints Cardiac & Pulmonary Exam Cardiac Exam: Normal S1/S2 Heart Sounds Pulmonary Exam: Clear Bilateral Breath Sounds Implantable Cardiac Device Does patient have a Pacemaker or an ICD?: No Airway Exam Known Difficult Airway: No Mallampati Class: 2 Mouth Opening: Normal (> 3cm) Thyromental Distance: Greater than 3 cm Neck Range of Motion: Full ROM Neck Circumference: Thick Teeth Condition: Normal Dentition Airway Comments: Non-compliant with CPAP machine ASA Classification ASA Score: ASA 3 Emergency Case?: No NPO Status NPO Status: NPO Clears >2 hours, Solids >8 hours Status Status: Not Per Patient Anesthesia Plan Resuscitation Status: Full Code Anesthesia Technique: General Anesthesia Airway Planned: Natural Airway Monitors Used: Standard Monitors
[2022-05-10] MEDS: Lactated Ringers 1,000 ML 80 ML IV (13:00)
[2022-05-10 13:17] VITALS: BMI 33.0
[2022-05-10 13:59] VITALS: BP 129/86; PULSE 83; RESP 16; TEMP 36.3; O2SAT 100
--- NOTE | 2022-05-10 14:07 | W.ANESPOSTOP ---
Postoperative Evaluation Date, Time and Location Date Performed: 05/10/22 Time Performed: 13:59 Patient Location: Day Surgery Unit Vital Signs Most Recent Imported Vital Signs: Most Recent Vital Signs Temp Pulse Resp BP Pulse Ox 36.3 C L 83 16 129/86 100 05/10/22 13:59 05/10/22 13:59 05/10/22 13:59 05/10/22 13:59 05/10/22 13:59 Pain Score Most Recent Pain Score: Most Recent Pain Score Pain Level 0 05/10/22 13:59 Assessment Mental Status: Awake (Alert & Oriented to Patient Baseline) Airway and Respiratory Function: Patent airway with normal (patient baseline) respiratory exam Cardiovascular Function: Hemodynamically Stable Hydration Status: Adequately Hydrated Nausea & Vomiting: No Nausea or Vomiting Pain: Pt. Denies Any Pain Peripheral Nerve Block: Patient did not receive a nerve block
[2022-05-10 14:23] VITALS: BP 144/85; PULSE 78; RESP 18; TEMP 36.8; O2SAT 98
== END 2022-05-10 14:34 | disposition home or self-care (01) ==
PROVIDERS: PCP Nurse Practitioner Family; Visit Provider Surgery
PROC: 0DJD8ZZ Inspection of Lower Intestinal Tract, Via Natural or Artificial Opening Endoscopic (ICD-10-PCS; CPT 45378; principal; 2022-05-10 10:30)
DX: Z12.11 Encounter for screening for malignant neoplasm of colon (principal); Z80.0 Family history of malignant neoplasm of digestive organs; K57.30 Diverticulosis of large intestine without perforation or abscess without bleeding
CPT/HCPCS: 45378; 81025; J2704

== ENCOUNTER 2022-07-14 12:21 | Outpatient (CLI) | payer MEDICAID, SELFPAY ==
--- NOTE | 2022-07-14 11:00 | DI.RAD_ITS ---
Exam(s) XR ANKLE RT COMPLETE EXAM: XR ANKLE RT COMPLETE CLINICAL HISTORY: Rt ankle pain, M25.571, s/p ankle injury this AM. TECHNIQUE: 2D digital imaging was performed. Three views. COMPARISON: CR XR ANKLE RT COMPLETE from 03/25/2021 FINDINGS: BONES: No acute fracture is present. No bony destructive lesion is seen. Heel spurs. JOINTS: The ankle mortise is normally aligned. SOFT TISSUE: Swelling around malleoli. IMPRESSION: No evidence of fracture or ankle mortise widening. DATA REPOSITORY: RADIATION DOSE DELIVERED:
== END 2022-07-14 12:41 ==
LOC: DI 12:21
PROVIDERS: PCP Nurse Practitioner Family; Visit Provider Physician Assistant
DX: M25.571 Pain in right ankle and joints of right foot (principal)
CPT/HCPCS: 73610

== ENCOUNTER 2022-07-27 20:28 | Emergency (ER) | payer MEDICAID, SELFPAY ==
--- NOTE | 2022-07-27 20:30 | DI.CT_ITS ---
Exam(s) CT ABDOMEN PELVIS WO EXAM: CT ABDOMEN PELVIS WO CLINICAL HISTORY: R flank pain, HTN. TECHNIQUE: Imaging Protocol: Axial computed tomography images with coronal and sagittal reformatted images were created and reviewed CONTRAST MATERIAL: Intravenous: none Oral: None COMPARISON: CT ABD PELVIS WITH CONTRAST from 09/28/2016 FINDINGS: VISUALIZED LUNG BASES: No nodules nor pleural effusions evident. ABDOMEN: There is no ascites. LIVER: There are no obvious focal hepatic lesions evident of this noninfused study. GALLBLADDER/BILIARY: The gallbladder is surgically absent. CBD is not dilated. PANCREAS: No evidence of pancreatic mass nor dilatation of the pancreatic duct. SPLEEN: Spleen is not enlarged. Accessory splenic lobule again noted. No obvious intrasplenic lesio ns. ADRENALS: There are no significant adrenal masses. KIDNEYS:No cysts evident. No solid renal masses. Small calcification in this in the of medial aspect of the right kidney is unchanged from the prior 2017 study and is probably outside of the collecting system.. The right ureter is not dilated. There is a calcification in the right-side of the pelvis which is unchanged from 2017 and is most probably related to vein given its round appearance or the right ovary. Doubtful that this represents an obstructing calculus in the nondilated right ureter. J ust medial to this is tiny 1-2 millimeter calcification which was not evident on the 2017 study. This possibly represents a tiny calculus in the right ureter. There are no calculi in the ureterovesical junction nor within the nondistended urinary bladder. There is a small calcification intimately asso ciated with the left ureter anterior to the left psoas muscle. However, this is also unchanged from 2017 therefore unlikely to represent an acute calculus in left ureter. It is probably a phlebolith. There is no true nephrolithiasis. ABDOMINAL AORTA: Abdominal aorta is not enlarged. LYMPH NODES: There is no retroperitoneal nor paraaortic adenopathy. ABDOMINAL WALL: No evidence of significant anterior abdominal wall nor inguinal hernia. GI: There is no evidence of bowel obstruction, free air, nor abscess. PELVIS: LYMPH NODES: There is no intrapelvic nor inguinal adenopathy. GI: No evidence of appendicitis.There is a single hyperdense diverticulum in the sigmoid which measur es 10 x 10 mm. This finding is not associated with surrounding streaking. No free fluid. URINARY BLADDER: No calculi nor obvious masses evident REPRODUCTIVE: Uterus size normal. No new significant ovarian masses. No free fluid in the pelvis. There is a E well-defined unchanged 2 2.5 x 1.8 cm.5 by 1.8 cm hyperdensity in posterior left labii m ajora, unchanged from 2017. OSSEOUS: No significant osseous lesions. No fractures. Degenerative anterolisthesis L4 upon L5 IMPRESSION: 1. Possible tiny 2 millimeter calculus in the right ureter within the pelvis. Minimal if any signific ant dilatation above this level. Correlation with any history of ureteral colic right-side recommende d. 2. Other calcifications described above are unchanged from 2017 and are doubtful representing calculi . 3. There is a hyperdense 2.5 x 1.8 cm density in the posterior left lamina majora, unchanged from 201 7 and most probably benign but correlation with clinical findings recommended. Probably represents ch ronic inflammatory process at this level. RADIATION DOSE DELIVERED: 1,518.47mGy.cm Total DLP DATA REPOSITORY: All CT scans at this facility are submitted to the National Radiology Data Registry (NRDR) Dose Index Registry (DIR) with the [employer] (A[employer]). RADIATION OPTIMIZATION: All CT scans at this facility use at least one of these dose optimization te chniques: automated exposure control; mA and/or kV adjustment per patient size (includes targeted exa ms where dose is matched to clinical indication); or iterative reconstruction.
--- NOTE | 2022-07-27 20:34 | W.ED.GENAD ---
Discharge Plan Disposition Patient Disposition: Home Condition: Good Discharge Details Clinical Impression: Kidney stone Primary Care Provider: Yadira Ngo ED Provider: Edyta Keane Home Meds and New Rx's Prescriptions: New levofloxacin 750 mg tablet 750 mg PO DAILY Qty: 7 0RF Continued hydrochlorothiazide 25 mg tablet 25 mg PO DAILY Qty: 90 3RF ofloxacin [Ocuflox] 0.3 % drops See Rx Instructions ophthalmic (eye) .COMPLEX Qty: 10 0RF Rx Instructions: put 2 drps into both eye(s) every 2 h x 2 days while awake, then 2 drps 4 times/day days 3-7 ophthalmic (eye) prednisolone acetate 1 % drops,suspension 1 drp ophthalmic (eye) 6XD levothyroxine 200 mcg tablet 200 mcg PO DAILY Qty: 90 3RF fluoxetine 40 mg capsule 40 mg PO DAILY Qty: 90 4RF nystatin 100,000 unit/gram powder 1 applic Topical TID PRN (Reason: rash) Qty: 60 3RF Rx Instructions: Apply to groin rash three times per day in between steroid cream applications. metformin 500 mg tablet 500 mg PO BID Qty: 180 3RF Rx Instructions: 1 tab every 12 hours fluticasone propionate 50 mcg/actuation spray,suspension 1 spray intranasal BID PRN Rx Instructions: administer into each nostril topiramate [Topamax] 25 mg tablet 25 mg PO QHS PRN Metamucil Sugar-Free (aspart) 3.4 gram/5.8 gram powder 3 g PO BID 90 Days Qty: 660 1RF lisinopril 5 mg tablet 5 mg PO DAILY Qty: 90 3RF (DME) Dexcom G6 Certified Nurses' Aide Misc See Rx Instructions .ROUTE .MEDSUPPLY Qty: 1 0RF Rx Instructions: As directed glucose [Dex4 Glucose] 4 gram tablet,chewable 4 g PO Q15M PRN (Reason: hypoglycemia) Qty: 7 2RF Rx Instructions: until response levocetirizine [Xyzal] 5 mg tablet 5 mg PO PRN Qty: 30 3RF Hold Instructions: Home Medication placed on hold at Doctor's office (DME) pen needle, diabetic [Pen Needle] 31 gauge x 5/16 needle 1 ea Miscellaneous QID Qty: 400 3RF Rx Instructions: Dx E11.65 Pt using long- acting and mealtime insulin. sumatriptan succinate [Imitrex] 50 mg tablet 50 mg PO PRN MDD 200mg Qty: 30 3RF Rx Instructions: triamcinolone acetonide 0.1 % cream 1 applic Topical BID PRN (Reason: rash) Qty: 30 2RF Rx Instructions: Apply to rash on breast 0.025% liraglutide 0.6 mg/0.1 mL (18 mg/3 mL) pen injector 1.8 mg subcut DAILY Qty: 9 4RF GlucaGen HypoKit 1 mg recon soln 1 mg subcut Q20M PRN (Reason: hypoglycemia) Qty: 1 0RF Rx Instructions: until target blood sugar attained (DME) Dexcom G6 Transmitter Device See Rx Instructions .ROUTE .MEDSUPPLY Qty: 1 4RF Rx Instructions: As directed mupirocin 2 % ointment 1 applic TP BID Qty: 44 3RF atorvastatin [Lipitor] 40 mg tablet 40 mg PO HS Qty: 90 3RF magnesium oxide 400 mg magnesium capsule 400 mg PO DAILY Qty: 90 3RF (DME) Dexcom G6 Sensor Device See Rx Instructions .ROUTE .MEDSUPPLY Qty: 3 12RF Rx Instructions: As directed valacyclovir 1 gram tablet 1,000 mg PO BID PRN (Reason: Herpes outbreak) Qty: 30 1RF Rx Instructions: Take 1 tab two times per day for 3 days PRN insulin degludec [Tresiba FlexTouch U-200] 200 unit/mL (3 mL) insulin pen 80 - 100 unit subcut DAILY Qty: 45 3RF Rx Instructions: As directed insulin aspart U-100 [Novolog FlexPen U-100 Insulin] 100 unit/mL (3 mL) insulin pen See Rx Instructions Sub-Q TID Qty: 15 3RF Hold Instructions: Home Medication placed on hold at Doctor's office Dose Instruction: Units determined by FS and carb intake Sub-Q TID; E11.65 Patient Comments: pt doesnt remember how many units Rx Instructions: Units determined by FS and carb intake Sub-Q TID; E11.65 loratadine 10 mg tablet 10 mg PO DAILY Qty: 90 3RF naproxen 500 mg tablet 500 mg PO BID MDD 1500mg Qty: 90 4RF Rx Instructions: Take 2 tabs every AM and 1 tab every evening norethindrone acetate 5 mg tablet 5 mg PO DAILY Qty: 90 4RF Rx Instructions: Take 1 tab PO daily pantoprazole 40 mg tablet,delayed release (DR/EC) 40 mg PO DAILY Qty: 90 3RF ammonium lactate 12 % cream 1 applic topical PRN Qty: 385 1RF Rx Instructions: Apply to itchy skin externally as needed loperamide 2 mg Tablet No Action COVID-19 vacc,mRNA(Moderna)-PF 100 mcg/0.5 mL suspension 0.25 ml IM ONCE Qty: 0.25 0RF Discharge Instructions Instructions: Kidney Stones (ED) Additional Instructions: Dr. Contreras from urology should call you tomorrow for follow-up appointment. Get your antibiotics tomorrow and begin taking them tomorrow evening. Your 2 mm stone should pass on its own. Return to ED for fever of 100.4 or above, protracted vomiting, uncontrolled pain, other concerns. Take your naproxen with a Percocet as needed. Medical Decision Making Patient told nursing that her blood sugar usually runs in the high 300s to low 400s. It is 469 here in the ED. Her son reported that she drank a sugary drink prior to coming in. She does take aspart/NovoLog insulin 3 times daily as well as Tresiba/degludec qd. 2215: Test results including labs, urinalysis, and CT abdomen and pelvis were reviewed. The patient's BUN and creatinine of 21 and 1.3 or higher than her last numbers. Her blood sugar again is 46. She has no anion gap and her CO2 is 27. Her AST and ALT are mildly elevated at 50 and 60 although these are less in October 2016. Patient's alkaline phosphatase of 160 is greater than October 2016, at which time it was 103. Patient is on atorvastatin and other medications that could certainly affect her LFTs. Her abdomen is benign. Her urine does have large blood (greater than 50), urine protein of 100. These both certainly go along with a renal stone. The patient has 5-10 whites, is nitrite positive, and has trace leuk esterase with few epis. She has greater than or equal to 1000 of glucose which correlates with her poor glucose control. The CT scan read was reviewed. This read at times contradicts itself (the patient is status postcholecystectomy and a normal gallbladder is described). The patient's aorta is normal. The patient also has hepatosplenomegaly but it was later noted that his spleen is normal. The patient has a 4.4 mm stone in the vicinity of the distal to mid right ureter but this was also present on a 2017 CT and may be related to the patient's ovary. The patient does have a 2 mm calculus at the renal hilum which may be obstructive. The patient does have some hydronephrosis, but this 2 mm stone would not explain the hydroureter that is also described. I do think that the patient does have a kidney stone. MN: Test results were discussed with the patient over an hour ago. We were interrupted by a critically ill patient. She says she has some vague pain now radiating around toward her right lower quadrant. I will give her a night pack of Percocet. She has finally had her ceftriaxone and I will give her Levaquin to go home with. She knows what to come back for and we will have Dr. Contreras call her for follow-up. Imaging Data Radiologic Study: Radiologist's impression: PROCEDURE INFORMATION: Exam: CT Abdomen And Pelvis Without Contrast Exam date and time: 07/27/2022 9:21 PM Age: 47 years old Clinical indication: Other: R flank pain, HTN TECHNIQUE: Imaging protocol: Computed tomography of the abdomen and pelvis without contrast. Radiation optimization: All CT scans at this facility use at least one of these dose optimization techniques: automated exposure control; mA and/or kV adjustment per patient size (includes targeted exams where dose is matched to clinical indication); or iterative reconstruction. COMPARISON: CT ABD PELVIS WITH CONTRAST 09/28/2016 2:15 PM FINDINGS: Lungs: The lungs are otherwise normal. Pleural spaces: There is no evidence of pneumothorax. There are no pleural effusions present. Heart: The cardiac structures are normal. Liver: There are no focal liver lesions present. There is no evidence of intrahepatic or extrahepatic biliary ductal dilation. The liver is enlarged measuring 23 cm. The spleen is enlarged. The portal vein is enlarged measuring 18 mm. Gallbladder and bile ducts: There has been a cholecystectomy. The gallbladder is normal. There is no cholelitiasis, wall thickening or pericholecystic fluid to suggest cholecystitis. Pancreas: The pancreas is normal. Spleen: The spleen is normal. Adrenal glands: The adrenal glands are normal without evidence of mass or enlargement. Kidneys and ureters: There is an additional 2 mm calculus present at the hilum the right kidney which may represent a potentially obstructing calculus. The left kidney is normal. The ureters are normal caliber and follow a normal caliber and course. Stomach and bowel: There is no evidence of intestinal obstruction. Appendix: A normal appendix is identified. There is no evidence of distention or periappendiceal inflammation to suggest appendicitis. Intraperitoneal space: There is no free intraperitoneal air. There is no evidence of free intraperitoneal or pelvic fluid. Vasculature: The aorta is normal. The inferior venacava appears normal. Lymph nodes: There is no evidence of lymphadenopathy. Urinary bladder: The bladder is normal. Reproductive: There is a 4.4 mm calculus present within the vicinity of the distal to mid right ureter. This is also associated with the right ovary and was present on 09/28/2016. There is 2 mm calculus present on image 691 series 3. This calculus may represent an obstructing calculus. There is [id number] right hydroureter mild hydronephrosis. The uterus is normal. Bones/joints: Unremarkable. No acute fracture. Soft tissues: There is a fat-containing umbilical hernia. There is a hyperdense mass soft tissue stranding adjacent to the rectum enhances measuring 2.3 x 2 cm. This is present on the prior CT of 09/28/2016 and may represent hyperdense benign cyst or chronic inflammatory process. IMPRESSION: 1. ? There is 2 mm calculus present on image 691 series 3. This calculus may represent an obstructing calculus. There is [id number] right hydroureter mild hydronephrosis. 2. ? There is an additional 2 mm calculus present at the hilum of the right kidney which may represent a potentially obstructing calculus. Dictated and Authenticated by: Jose Shipley MD. Lab Data Lab results reviewed: Yes I reviewed the patient's lab results. Lab results narrative: Patient's BUN and creatinine are elevated today at 21 and 1.3. She has been hydrated. Blood sugar was 46. She has no anion gap and her CO2 is 27. Her AST and ALT are mildly elevated but less than they were in 2017. Her alk phos is more than it was in 2017. This may be from one of the medications the patient is on and I discussed this with her. Her urine has greater than or equal to the thousand glucose, 5-10 whites, many bacteria, nitrite positive, trace leuc esterase, large blood greater than 50, and urine protein of 100. HPI General Date/Time Provider Initiated Documentation: 07/27/22 20:34. HPI Narrative: This 47-year-old female patient presents with a chief complaint of right flank pain that began about 1500 this afternoon. Patient has a history of chronic pain disorder, peripheral polyneuropathy, opioid/controlled Rx contract, diabetes, obesity, and additional history including a cholecystectomy in the past. She says she began a new job 3 months ago and has had some lower back and hip pain since she started that. The pain began this afternoon is different. She says it is a very strong ache. She initially told me that nothing made it better or worse. Later told me that may have made it worse. She says its starting to radiate around her right side. She does describe frequency of urination but it sounds like this may be chronic with her diabetes. She denies urgency, burning, or hematuria. She has no abdominal pain, fever, or chills. Although the pain is strong she has not taken anything for it. Is been fairly constant since it started. Related Data Home Medications Medication Instructions Recorded Confirmed blood-glucose meter,continuous #1 ea 06/16/20 07/14/22 (Dexcom G6 Certified Nurses' Aide) glucose 4 gram chewable tablet 4 g PO Q15M PRN hypoglycemia #7 06/16/20 07/14/22 (Dex4 Glucose) tabs levocetirizine 5 mg tablet (Xyzal) 5 mg PO PRN #30 tab-caps 06/16/20 07/14/22 liraglutide 0.6 mg/0.1 mL (18 mg/3 1.8 mg (0.3 mL) subcut DAILY #9 mL 06/16/20 07/14/22 mL) subcutaneous pen injector pen needle, diabetic 31 gauge x #400 ea 06/16/20 07/14/22 5/16 (Pen Needle) sumatriptan succinate 50 mg tablet 50 mg PO PRN #30 tab-caps 06/16/20 07/14/22 (Imitrex) triamcinolone acetonide 0.1 % 1 applic topical BID PRN rash #30 06/16/20 07/14/22 topical cream grams glucagon (human recombinant) 1 mg 1 mg subcut Q20M PRN hypoglycemia 06/17/20 07/14/22 solution for injection (GlucaGen #1 ea HypoKit) hydrochlorothiazide 25 mg tablet 25 mg PO DAILY #90 tab-caps 11/25/20 07/14/22 ofloxacin 0.3 % eye drops (Ocuflox) See Rx Instructions ophthalmic 05/30/21 07/14/22 (eye) .COMPLEX #10 mL metformin 500 mg tablet 500 mg PO BID #180 tabs 02/24/22 07/14/22 atorvastatin 40 mg tablet (Lipitor) 40 mg PO HS #90 tab-caps 04/27/22 07/14/22 blood-glucose transmitter (Dexcom #1 ea 04/27/22 07/14/22 G6 Transmitter device) magnesium oxide 400 mg PO DAILY #90 caps 04/27/22 07/14/22 mupirocin 2 % topical ointment 1 applic topical BID skin lesions 04/27/22 07/14/22 #44 grams blood-glucose sensor (Dexcom G6 #3 ea 04/28/22 07/14/22 Sensor device) insulin aspart U-100 100 unit/mL See Rx Instructions subcut TID 04/28/22 07/14/22 (3 mL) subcutaneous pen (Novolog E11.65, TID, 12-20units depending FlexPen U-100 Insulin aspart) on FS & carbs #15 mL insulin degludec 200 unit/mL (3 80 - 100 unit (0.4 - 0.5 mL) 04/28/22 07/14/22 mL) subcutaneous pen (Tresiba subcut DAILY Diabetes Mellitus #45 FlexTouch U-200 insulin) mL valacyclovir 1 gram tablet 1,000 mg PO BID PRN Herpes 04/28/22 07/14/22 outbreak #30 tabs fluticasone propionate 50 1 spray intranasal BID PRN 04/29/22 07/14/22 mcg/actuation nasal spray,suspension topiramate 25 mg tablet (Topamax) 25 mg PO QHS PRN 04/29/22 07/14/22 loperamide 2 mg tablet mg 05/10/22 07/14/22 psyllium husk (aspartame) 3.4 3 g PO BID 90 days #660 grams 05/20/22 07/14/22 gram/5.8 gram oral powder (Metamucil Sugar-Free (aspartame)) fluoxetine 40 mg capsule 40 mg PO DAILY depression #90 caps 05/24/22 07/14/22 levothyroxine 200 mcg tablet 200 mcg PO DAILY #90 tab-caps 05/24/22 07/14/22 prednisolone acetate 1 % eye 1 drp ophthalmic (eye) 6XD 05/26/22 07/14/22 drops,suspension lisinopril 5 mg tablet 5 mg PO DAILY #90 tabs 06/01/22 07/14/22 nystatin 100,000 unit/gram topical 1 applic topical TID PRN rash #60 06/17/22 07/14/22 powder grams ammonium lactate 12 % topical cream 1 applic topical PRN pruritis #385 06/24/22 07/14/22 grams loratadine 10 mg tablet 10 mg PO DAILY #90 tab-caps 06/24/22 07/14/22 naproxen 500 mg tablet 500 mg PO BID Inflamation #90 tabs 06/24/22 07/14/22 norethindrone acetate 5 mg tablet 5 mg PO DAILY #90 tab-caps 06/24/22 07/14/22 pantoprazole 40 mg tablet,delayed 40 mg PO DAILY #90 tab-caps 06/24/22 07/14/22 release levofloxacin 750 mg tablet 750 mg PO DAILY #7 tabs 07/28/22 Previous Rx's Medication Instructions Recorded blood-glucose meter,continuous #1 ea 06/16/20 (Dexcom G6 Certified Nurses' Aide) glucose 4 gram chewable tablet 4 g PO Q15M PRN hypoglycemia #7 06/16/20 (Dex4 Glucose) tabs levocetirizine 5 mg tablet (Xyzal) 5 mg PO PRN #30 tab-caps 06/16/20 liraglutide 0.6 mg/0.1 mL (18 mg/3 1.8 mg (0.3 mL) subcut DAILY #9 mL 06/16/20 mL) subcutaneous pen injector pen needle, diabetic 31 gauge x #400 ea 06/16/2007/20 (Pen Needle) sumatriptan succinate 50 mg tablet 50 mg PO PRN #30 tab-caps 06/16/20 (Imitrex) triamcinolone acetonide 0.1 % 1 applic topical BID PRN rash #30 06/16/20 topical cream grams glucagon (human recombinant) 1 mg 1 mg subcut Q20M PRN hypoglycemia 06/17/20 solution for injection (GlucaGen #1 ea HypoKit) hydrochlorothiazide 25 mg tablet 25 mg PO DAILY #90 tab-caps 11/25/20 ofloxacin 0.3 % eye drops (Ocuflox) See Rx Instructions ophthalmic 05/30/21 (eye) .COMPLEX #10 mL metformin 500 mg tablet 500 mg PO BID #180 tabs 02/24/22 atorvastatin 40 mg tablet (Lipitor) 40 mg PO HS #90 tab-caps 04/27/22 blood-glucose transmitter (Dexcom #1 ea 04/27/22 G6 Transmitter device) magnesium oxide 400 mg PO DAILY #90 caps 04/27/22 mupirocin 2 % topical ointment 1 applic topical BID skin lesions 04/27/22 #44 grams blood-glucose sensor (Dexcom G6 #3 ea 04/28/22 Sensor device) insulin aspart U-100 100 unit/mL See Rx Instructions subcut TID 04/28/22 (3 mL) subcutaneous pen (Novolog E11.65, TID, 12-20units depending FlexPen U-100 Insulin aspart) on FS & carbs #15 mL insulin degludec 200 unit/mL (3 80 - 100 unit (0.4 - 0.5 mL) 04/28/22 mL) subcutaneous pen (Tresiba subcut DAILY Diabetes Mellitus #45 FlexTouch U-200 insulin) mL valacyclovir 1 gram tablet 1,000 mg PO BID PRN Herpes 04/28/22 outbreak #30 tabs psyllium husk (aspartame) 3.4 3 g PO BID 90 days #660 grams 05/20/22 gram/5.8 gram oral powder (Metamucil Sugar-Free (aspartame)) fluoxetine 40 mg capsule 40 mg PO DAILY depression #90 caps 05/24/22 levothyroxine 200 mcg tablet 200 mcg PO DAILY #90 tab-caps 05/24/22 lisinopril 5 mg tablet 5 mg PO DAILY #90 tabs 06/01/22 nystatin 100,000 unit/gram topical 1 applic topical TID PRN rash #60 06/17/22 powder grams ammonium lactate 12 % topical cream 1 applic topical PRN pruritis #385 06/24/22 grams loratadine 10 mg tablet 10 mg PO DAILY #90 tab-caps 06/24/22 naproxen 500 mg tablet 500 mg PO BID Inflamation #90 tabs 06/24/22 norethindrone acetate 5 mg tablet 5 mg PO DAILY #90 tab-caps 06/24/22 pantoprazole 40 mg tablet,delayed 40 mg PO DAILY #90 tab-caps 06/24/22 release levofloxacin 750 mg tablet 750 mg PO DAILY #7 tabs 07/28/22 Allergies Allergy/AdvReac Type Severity Reaction Status Date / Time Sulfa (Sulfonamide Allergy Severe Anaphylaxsi Verified 07/27/22 20:40 Antibiotics) s latex Allergy Intermediate Hives Verified 07/27/22 20:40 fentanyl AdvReac Intermediate went Verified 07/27/22 20:40 outside of her body, felt uncomfortable zolpidem tartrate AdvReac Mild sleep walks Verified 07/27/22 20:40 [From Ambien] Dust, cat dander Allergy Intermediate Hives Uncoded 07/27/22 20:40 Environmental Allergies Allergy Intermediate Rash Uncoded 07/27/22 20:40 General RODNEY: 3 Review of Systems Constitutional Constitutional: Denies chills, Denies fever(s), Denies headache(s) and Denies weakness Eyes Eyes: Denies diplopia and Reports other (no redness) ENT Ears, Nose, Mouth, and Throat: Denies otalgia, Denies headache(s), Denies nasal congestion, Denies nasal discharge, Denies neck pain and Denies sore throat Cardiovascular Cardiovascular: Denies chest pain, Denies palpitations and Denies dyspnea Respiratory Respiratory: Denies cough and Denies dyspnea Gastrointestinal Gastrointestinal: Denies abdominal pain, Reports diarrhea (Patient acknowledges a small amount of loose stool), Reports nausea (This began with the pain) and Denies vomiting Genitourinary Genitourinary: Denies dysuria Musculoskeletal Musculoskeletal: Reports back pain (right flank), Denies myalgias, Denies muscle weakness, Denies neck pain, Denies numbness and Reports other (edema) Integumentary/Breasts Skin/Breast: Denies change in pigmentation and Denies rash Neurologic Neurologic: Denies headache(s), Denies numbness and Denies weakness Endocrine Endocrine: Denies palpitations PFSH All Active Problems (Updated 07/28/22 @ 00:02 by Edyta Keane MD) Kidney stone (Chronic) Rash and nonspecific skin eruption (Acute) fungal under breast, abd groin Normal colonoscopy (Acute) Chronic pain disorder (Chronic) Diabetes type 2, uncontrolled (Acute 04/22/15) Hypertension (Chronic) Hypothyroidism, acquired (Acute) MDD (major depressive disorder) (Chronic) Unspecified mental or behavioral problem (Acute) Periodic non-compliance with treatment program. Sleep apnea (Chronic 05/28/12) Primary osteoarthritis of both knees (Acute) Skin lesion of scalp (Acute) 05/2020 - Biopsy negative at [facility] [place] 05/2021 - Recurrent Fatigue (Acute) Atypical pigmented skin lesion (Acute) ADD (attention deficit disorder) (Acute) Diabetic retinopathy (Acute ~01/01/21) 01/01/21 MILD BACKGROUND RETINOPATHY-DR. RODRIGUEZ Foot ulcer (Acute) Right ankle Obesity (BMI 30-39.9) (Acute) Intercostal myalgia (Acute) Left Post traumatic stress disorder (PTSD) (Acute) Dysuria (Acute) Family history of colon cancer in father (Acute) Patient was greater than 60 at the time of diagnosis Medical History Abnormal uterine bleeding (AUB) on Norethindrone for suppression of menses. Acid reflux (01/25/14) Anxiety (01/25/14) Changes in vision Constipation COVID-19 (~08/25/21) Diabetic feet Diarrhea Genital herpes HSV-1 primary outbreak. Herpes simplex 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 Father Alcohol abuse Prostate cancer Sister No problems noted. Brother Stroke x2 (five years apart) Maternal Grandfather Essential hypertension Heart disease Hyperlipidemia Paternal Grandfather , AGE 57 Myocardial infarction Brain tumor Maternal Grandmother , AGE 85 Essential hypertension Paternal Grandmother , AGE 85 Personal history of malignant neoplasm COLON MATERNAL AUNT Essential hypertension Cancer MATERNAL UNCLE Essential hypertension Social History Smoking/Tobacco Use Status: Former Tobacco Use Quit Date: 03/07/10 Pack-years: 10 Second Hand Exposure: Yes Smoking risk assessment performed?: Yes Alcohol Intake: former Drug use: Never Substance use type: former substance user Household members: other Details: 2 Number of Children: 4 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 Pets and animals: Yes Pets and animals: cat(s) Current gender identity: female What type of physical activity do you participate in: walking and swimming Duration: 15-30 minutes/day Frequency: 1-2 times per week Jailyn/Shinto: No preference Special jailyn needs: Yes (SINGING) Seatbelt use: always Helmet use: Yes Helmet use: always Do you feel safe at home: Yes Do you feel safe in your relationship?: Yes Exam Const General: no acute distress, well developed, well groomed and not in acute distress Nutritional Appearance: well nourished and other (obese) Orientation: alert and oriented x3 HENNJ Head: normocephalic and atraumatic Ears: external ears normal Mouth: oropharynx normal and moist mucous membranes Throat: posterior oropharynx normal Eyes Conjunctivae: conjunctivae normal Neck Neck: full ROM and supple Chest Chest: normal inspection of the chest Resp Effort & Inspection: normal respiratory effort Auscultation: clear to auscultation bilaterally Cardio Rate: regular rate Rhythm: regular rhythm Heart Sounds: no murmurs and no rubs GI Inspection: normal to inspection Palpation: soft, nontender and other (non distended) Auscultation: normal bowel sounds Back/Spine/Pelvis Back: CVA tenderness (Right, mild) Skin General skin exam: no rashes or lesions noted and other (pink, warm, dry) Neuro General: patient alert, patient awake and patient oriented x3 Speech: speech normal Motor: other (JARA) Sensory Exam: no sensory deficits noted Extrem General: normal to inspection, full ROM and pedal edema present Psych Mental Status: mental status grossly normal Speech and Movement: speech and movement normal Affect: normal affect
[2022-07-27 20:37] VITALS: BP 189/89; PULSE 98; RESP 18; TEMP 36.8; O2SAT 97
[2022-07-27 20:49] VITALS: BP 163/89; PULSE 92; RESP 16; O2SAT 99
[2022-07-27] MEDS: Normal Saline 1,000 ML 1000 ML IV (21:08)
[2022-07-27] MEDS: Ketorolac 15 MG/ML VIAL IVP (21:08)
[2022-07-27 21:09] LABS: Abs Immature Grans 0.02 10^3/uL (0.0-0.06); Absolute Basophil Count 0.02 10^3/uL (0.0-0.2); Absolute Eosinophil Count 0.15 10^3/uL (0.0-0.7); Absolute Lymphocyte Count 2.33 10^3/uL (1.2-3.4); Absolute Monocyte Count 0.61 10^3/uL (0.1-0.8); Absolute Neutrophil Count 6.38 10^3/uL (1.2-6.7); Basophils % 0.2; Eosinophils % 1.6; HCT 37.7 % (36.0-46.0); HGB 12.6 g/dL (11.2-15.7); Immature Grans % 0.2; Lymphocytes % 24.5; MCH 29.2 pg (27.0-33.0); MCHC 33.4 % (32.0-36.0); MCV 87 fL (80-95); MPV 11.8 fL (8.0-11.0); Monocytes % 6.4; Neutrophils % 67.1; Platelet Count 245 10^3/uL (130-400); RBC 4.32 10^6/uL (3.93-5.22); RDW-SD 38.7 fL; WBC 9.51 10^3/uL (4.4-10.8)
[2022-07-27 21:11] LABS: Bilirubin Negative (Negative); Blood Large (Negative); Clarity Cloudy (Clear); Glucose >=1000 mg/dL (Negative); Ketones Negative (Negative); Leukocyte Esterase Trace (Negative); Nitrite Positive (Negative); Specific Gravity 1.015 (1.005-1.025); Urobilinogen 0.2 mg/dL (Up to 0.2)
[2022-07-27 21:22] LABS: Bacteria Many HPF (Negative); C & S Indicated? Yes; Casts Negative LPF (Negative); Crystals Negative HPF (Negative); Epithelial Cells Few HPF (Negative); Mucus Negative (Negative); RBC >50 HPF (0-2)
[2022-07-27 21:34] LABS: ALT 60 U/L (14-59); AST 50 U/L (15-37); Albumin 3.8 g/dL (3.4-5.0); Alkaline Phosphatase 160 U/L (46-116); Anion Gap 8.9 mmol/L (3-11); BUN 21 mg/dL (7-18); Bilirubin, Total 0.6 mg/dL (0.2-1.0); CO2 27.1 mmol/L (21.0-32.0); CREATININE 1.3 mg/dL (0.55-1.02); Calcium 9.4 mg/dL (8.5-10.1); Chloride 99 mmol/L (98-107); Estimated GFR 50.41 (mL/min/1.73m2); Glucose 486 mg/dL (74-106); Potassium 4.2 mmol/L (3.5-5.1); Sodium 135 mmol/L (136-145); Total Protein 7.8 g/dL (6.4-8.2)
--- NOTE | 2022-07-27 21:57 | DI.VRAD_ITS ---
PROCEDURE INFORMATION: Exam: CT Abdomen And Pelvis Without Contrast Exam date and time: 07/27/2022 9:21 PM Age: 47 years old Clinical indication: Other: R flank pain, HTN TECHNIQUE: Imaging protocol: Computed tomography of the abdomen and pelvis without contrast. Radiation optimization: All CT scans at this facility use at least one of these dose optimization techniques: automated exposure control; mA and/or kV adjustment per patient size (includes targeted exams where dose is matched to clinical indication); or iterative reconstruction. COMPARISON: CT ABD PELVIS WITH CONTRAST 09/28/2016 2:15 PM FINDINGS: Lungs: The lungs are otherwise normal. Pleural spaces: There is no evidence of pneumothorax. There are no pleural effusions present. Heart: The cardiac structures are normal. Liver: There are no focal liver lesions present. There is no evidence of intrahepatic or extrahepatic biliary ductal dilation. The liver is enlarged measuring 23 cm. The spleen is enlarged. The portal vein is enlarged measuring 18 mm. Gallbladder and bile ducts: There has been a cholecystectomy. The gallbladder is normal. There is no cholelitiasis, wall thickening or pericholecystic fluid to suggest cholecystitis. Pancreas: The pancreas is normal. Spleen: The spleen is normal. Adrenal glands: The adrenal glands are normal without evidence of mass or enlargement. Kidneys and ureters: There is an additional 2 mm calculus present at the hilum the right kidney which may represent a potentially obstructing calculus. The left kidney is normal. The ureters are normal caliber and follow a normal caliber and course. Stomach and bowel: There is no evidence of intestinal obstruction. Appendix: A normal appendix is identified. There is no evidence of distention or periappendiceal inflammation to suggest appendicitis. Intraperitoneal space: There is no free intraperitoneal air. There is no evidence of free intraperitoneal or pelvic fluid. Vasculature: The aorta is normal. The inferior venacava appears normal. Lymph nodes: There is no evidence of lymphadenopathy. Urinary bladder: The bladder is normal. Reproductive: There is a 4.4 mm calculus present within the vicinity of the distal to mid right ureter. This is also associated with the right ovary and was present on 09/28/2016. There is 2 mm calculus present on image 691 series 3. This calculus may represent an obstructing calculus. There is [id number] right hydroureter mild hydronephrosis. The uterus is normal. Bones/joints: Unremarkable. No acute fracture. Soft tissues: There is a fat-containing umbilical hernia. There is a hyperdense mass soft tissue stranding adjacent to the rectum enhances measuring 2.3 x 2 cm. This is present on the prior CT of 09/28/2016 and may represent hyperdense benign cyst or chronic inflammatory process. IMPRESSION: 1. There is 2 mm calculus present on image 691 series 3. This calculus may represent an obstructing calculus. There is [id number] right hydroureter mild hydronephrosis. 2. There is an additional 2 mm calculus present at the hilum of the right kidney which may represent a potentially obstructing calculus. Dictated and Authenticated by: Jose Shipley MD. Ordering:VANDANA Lan MD
[2022-07-27] MEDS: Insulin Aspart 100 UNITS/ML UNIT 10 UNITS IV (22:09)
[2022-07-27] MEDS: cefTRIAXone 2 GM/50 ML BAG IVPB (23:40)
[2022-07-28] MEDS: oxyCODONE 5 mg/Acetaminophen 325 mg TAB 4 TAB PO (00:02)
--- NOTE | 2022-07-28 00:47 | NUR.NOTE ---
Pt placed on referral list for urology to see Dr. Nieto per Dr. Keane for kidney stones.
== END 2022-07-28 00:48 | disposition home or self-care (01) ==
PROVIDERS: Emergency Provider Emergency Medicine; PCP Nurse Practitioner Family
DX: N20.0 Calculus of kidney (principal); E11.42 Type 2 diabetes mellitus with diabetic polyneuropathy
CPT/HCPCS: 36416; 80053; 82962; 87077; 96361; 96365; 96375; 99284; 74176; 81003; 81015; 85025; 87086; 87186; J1815; J1885; J3490

== ENCOUNTER 2022-09-24 00:53 | Outpatient (CLI) | payer MEDICAID, SELFPAY ==
--- NOTE | 2022-09-24 07:00 | DI.CT_ITS ---
Exam(s) CT CHEST WO EXAM: CT CHEST WO CLINICAL HISTORY: Screening for lung cancer,former smoker TECHNIQUE: Imaging Protocol: Axial computed tomography images with coronal and sagittal reformatted images were created and reviewed. Low dose screening protocol. COMPARISON: CR CHEST 2 VIEWS PA,LAT from 01/28/2015 FINDINGS: Tracheobronchial tree: No bronchiectasis or mucus plugging.. Mediastinum and Emma: No dominant adenopathy or fluid collection. Lung Nodules: Scattered tiny peripheral nodules in the right upper and lower lobes, largest at the pe ripheral lateral right lung base measuring 5 millimeters. Pleura: No effusion. No pneumothorax. Soft Tissues: Unremarkable. Pulmonary parenchyma: No consolidation. No dominant measurable mass. Mild emphysematous changes. Heart: The heart is not dilated. coronary artery calcifications are seen. Aorta: Thoracic aorta non-dilated. Mild atherosclerotic changes. Upper abdomen: Status post cholecystectomy. Bones: Degenerative changes in the spine with prominent endplate osteophytes. IMPRESSION: No suspicious pulmonary nodules. Lung RADS Cat 2 - Benign Appearance / Behavior: Nodules with a very low likelihood of becoming a clin ically active cancer due to size or lack of growth Lung-RADS 1.0 CATEGORIES: Category 0 - Prior chest CT exam(s) being located for comparison. Category 1 - Annual screening in 12 months. No nodules or definitely benign nodules. Category 2 - Annual screening in 12 months. Benign appearance. Nodules with low likelihood of becomin g active cancer. Category 3 - 6-month follow-up. Probably benign. Short-term follow-up suggested. Nodules with low lik elihood of becoming active cancer. Category 4A - 3-month follow-up and CT/PET if >8 mm in size. Suspicious finding. Findings which requi re additional testing. Category 4B - Findings which require additional testing and tissue sampling. Category 4X - Category 3 or 4 nodules with additional features or imaging findings that increases the suspicion of malignancy. Modifier S- Potentially clinically significant findings (non lung cancer) RADIATION DOSE DELIVERED: Total DLP Total DLP DATA REPOSITORY: All CT scans at this facility are submitted to the National Radiology Data Registry (NRDR) Dose Index Registry (DIR) with the [employer] (A[employer]). RADIATION OPTIMIZATION: All CT scans at this facility use at least one of these dose optimization te chniques: automated exposure control; mA and/or kV adjustment per patient size (includes targeted exa ms where dose is matched to clinical indication); or iterative reconstruction.
== END 2022-09-24 01:13 ==
LOC: DI 00:53
PROVIDERS: PCP Nurse Practitioner Family; Visit Provider Nurse Practitioner Family
DX: Z87.891 Personal history of nicotine dependence; Z12.2 Encounter for screening for malignant neoplasm of respiratory organs
CPT/HCPCS: 71250

== ENCOUNTER 2022-10-04 09:32 | Outpatient (CLI) | payer MEDICAID, SELFPAY ==
[2022-10-04 13:05] LABS: TSH (W/Ref FT4) 9.81 uIU/mL (0.36-3.74)
[2022-10-04 13:23] LABS: FREE T4 0.71 ng/dL (0.76-1.46)
== END 2022-10-04 09:33 | disposition home or self-care (01) ==
LOC: LOS 09:32
PROVIDERS: PCP Nurse Practitioner Family; Referring Provider Nurse Practitioner Family; Visit Provider Nurse Practitioner Family
DX: E03.9 Hypothyroidism, unspecified (principal)
CPT/HCPCS: 36415; 84439; 84443

== ENCOUNTER → 2022-11-03 14:36 | Outpatient (CLI) | payer MEDICAID, SELFPAY ==
--- NOTE | 2022-11-03 13:45 | DI.RAD_ITS ---
Exam(s) XR KNEE RT 3V AP,LAT,ANGUS EXAM: XR KNEE RT 3V AP,LAT,ANGUS CLINICAL HISTORY: worsening despite PT, worse today M17.0 BILAT OSTEOARTHRITIS OF KNEE. TECHNIQUE: 2D digital imaging was performed. Three views. COMPARISON: CR XR KNEE RT 2V AP,LAT from 01/18/2020 FINDINGS: BONES: No acute fracture is present. No bony destructive lesion is seen. JOINTS: Severe narrowing of the medial femoral tibial joint and periarticular spurring. Spurring als o noted at the lateral femoral condyle. Prominent spurring also present at patellofemoral joint. No joint effusion is seen. SOFT TISSUE: Venous varicosities. IMPRESSION: Advanced degenerative changes. No acute abnormality. DATA REPOSITORY: RADIATION DOSE DELIVERED:
== END ==
PROVIDERS: PCP Nurse Practitioner Family; Visit Provider Nurse Practitioner Family
DX: M17.0 Bilateral primary osteoarthritis of knee (principal)
CPT/HCPCS: 73562

== ENCOUNTER 2023-02-03 11:20 | Outpatient (CLI) | payer MEDICAID, SELFPAY ==
[2023-02-03 12:28] LABS: HCT 34.1 % (36.0-46.0); HGB 10.8 g/dL (11.2-15.7); MCH 27.4 pg (27.0-33.0); MCHC 31.7 % (32.0-36.0); MCV 87 fL (80-95); MPV 11.5 fL (8.0-11.0); Platelet Count 233 10^3/uL (130-400); RBC 3.94 10^6/uL (3.93-5.22); RDW 12.3 % (11.7-14.6); RDW-SD 38.9 fL; WBC 6.35 10^3/uL (4.4-10.8)
[2023-02-03 12:45] LABS: ALT 69 U/L (14-59); AST 86 U/L (15-37); Albumin 3.6 g/dL (3.4-5.0); Alkaline Phosphatase 104 U/L (46-116); Anion Gap 7.8 mmol/L (3-11); BUN 17 mg/dL (7-18); Bilirubin, Total 0.9 mg/dL (0.2-1.0); CO2 28.2 mmol/L (21.0-32.0); Calcium 9.2 mg/dL (8.5-10.1); Calculated LDL 131 mg/dL (<100); Chloride 104 mmol/L (98-107); Cholesterol 210 mg/dL (<200); Estimated GFR 69.06 (mL/min/1.73m2); Glucose 154 mg/dL (74-106); HDL Cholesterol 43 mg/dL (40-60); Potassium 4.1 mmol/L (3.5-5.1); Sodium 140 mmol/L (136-145); TSH (W/Ref FT4) 0.03 uIU/mL (0.36-3.74); Total Protein 7.5 g/dL (6.4-8.2); Triglyceride 181 mg/dL (<150)
[2023-02-03 12:46] LABS: Hemoglobin A1C 6.5 % (<5.7)
[2023-02-03 13:01] LABS: FREE T4 1.41 ng/dL (0.76-1.46)
== END 2023-02-03 11:21 | disposition home or self-care (01) ==
LOC: LOS 11:20
PROVIDERS: PCP Nurse Practitioner Family; Referring Provider Nurse Practitioner Family; Visit Provider Nurse Practitioner Family
DX: E03.9 Hypothyroidism, unspecified (principal); E11.65 Type 2 diabetes mellitus with hyperglycemia; F32.9 Major depressive disorder, single episode, unspecified; F98.8 Other specified behavioral and emotional disorders with onset usually occurring in childhood and adolescence; I10 Essential (primary) hypertension
CPT/HCPCS: 36415; 80053; 80061; 85027; 83036; 84439; 84443

== ENCOUNTER 2023-02-16 12:12 | Day surgery (SDC) | payer MEDICAID, SELFPAY ==
[2023-02-16 12:46] VITALS: BP 140/82; PULSE 80; RESP 16; TEMP 36.7; O2SAT 98
--- NOTE | 2023-02-16 13:01 | W.PM.DSUDISC ---
Date of service: 02/16/23 Time of Service: 13:01 Discharge Plan Disposition Patient Disposition: Home Condition: Good Discharge Details Reason For Visit: R ECTR/RRF trigger release Attending Provider: Neel Cabrera Primary Care Provider: Yadira Ngo Home Meds and New Rx's Prescriptions: New acetaminophen 500 mg tablet 1,000 mg PO TID Qty: 90 0RF hydrocodone-acetaminophen 5-325 mg tablet 1 tab PO Q6H PRN (Reason: pain) Qty: 6 0RF ibuprofen 600 mg tablet 600 mg PO TID PRN (Reason: pain) Qty: 90 0RF Continued hydrochlorothiazide 25 mg tablet 25 mg PO DAILY Qty: 90 3RF fluoxetine 40 mg capsule 40 mg PO DAILY Qty: 90 4RF nystatin 100,000 unit/gram powder 1 applic Topical TID PRN (Reason: rash) Qty: 60 3RF Rx Instructions: Apply to groin rash three times per day in between steroid cream applications. lisinopril 10 mg tablet 10 mg PO DAILY Qty: 90 3RF metformin 500 mg tablet 500 mg PO BID Qty: 180 3RF Rx Instructions: 1 tab every 12 hours fluticasone propionate 50 mcg/actuation spray,suspension 1 spray intranasal BID PRN Rx Instructions: administer into each nostril topiramate [Topamax] 25 mg tablet 25 mg PO QHS PRN Metamucil Sugar-Free (aspart) 3.4 gram/5.8 gram powder 3 g PO BID 90 Days Qty: 660 1RF (DME) Dexcom G6 Director Of Occupational Therapy Misc See Rx Instructions .ROUTE .MEDSUPPLY Qty: 1 0RF Rx Instructions: As directed glucose [Dex4 Glucose] 4 gram tablet,chewable 4 g PO Q15M PRN (Reason: hypoglycemia) Qty: 7 2RF Rx Instructions: until response levocetirizine [Xyzal] 5 mg tablet 5 mg PO PRN Qty: 30 3RF Hold Instructions: Home Medication placed on hold at Doctor's office (DME) pen needle, diabetic [Pen Needle] 31 gauge x 5/16 needle 1 ea Miscellaneous QID Qty: 400 3RF Rx Instructions: Dx E11.65 Pt using long- acting and mealtime insulin. sumatriptan succinate [Imitrex] 50 mg tablet 50 mg PO PRN MDD 200mg Qty: 30 3RF Rx Instructions: triamcinolone acetonide 0.1 % cream 1 applic Topical BID PRN (Reason: rash) Qty: 30 2RF Rx Instructions: Apply to rash on breast 0.025% GlucaGen HypoKit 1 mg recon soln 1 mg subcut Q20M PRN (Reason: hypoglycemia) Qty: 1 0RF Rx Instructions: until target blood sugar attained COVID-19 vacc,mRNA(Moderna)-PF 100 mcg/0.5 mL suspension 0.25 ml IM ONCE Qty: 0.25 0RF (DME) Dexcom G6 Transmitter Device See Rx Instructions .ROUTE .MEDSUPPLY Qty: 1 4RF Rx Instructions: As directed mupirocin 2 % ointment 1 applic TP BID Qty: 44 3RF atorvastatin [Lipitor] 40 mg tablet 40 mg PO HS Qty: 90 3RF magnesium oxide 400 mg magnesium capsule 400 mg PO DAILY Qty: 90 3RF (DME) Dexcom G6 Sensor Device See Rx Instructions .ROUTE .MEDSUPPLY Qty: 3 12RF Rx Instructions: As directed valacyclovir 1 gram tablet 1,000 mg PO BID PRN (Reason: Herpes outbreak) Qty: 30 1RF Rx Instructions: Take 1 tab two times per day for 3 days PRN insulin degludec [Tresiba FlexTouch U-200] 200 unit/mL (3 mL) insulin pen 80 - 100 unit subcut DAILY Qty: 45 3RF Hold Instructions: Home Medication placed on hold at Doctor's office Rx Instructions: As directed insulin aspart U-100 [Novolog FlexPen U-100 Insulin] 100 unit/mL (3 mL) insulin pen See Rx Instructions Sub-Q TID Qty: 15 3RF Hold Instructions: Home Medication placed on hold at Doctor's office Dose Instruction: Units determined by FS and carb intake Sub-Q TID; E11.65 Patient Comments: pt doesnt remember how many units Rx Instructions: Units determined by FS and carb intake Sub-Q TID; E11.65 loratadine 10 mg tablet 10 mg PO DAILY Qty: 90 3RF pantoprazole 40 mg tablet,delayed release (DR/EC) 40 mg PO DAILY Qty: 90 3RF ammonium lactate 12 % cream 1 applic topical PRN Qty: 385 1RF Rx Instructions: Apply to itchy skin externally as needed lisdexamfetamine [Vyvanse] 40 mg capsule 40 mg PO DAILY MDD 40mg Qty: 28 0RF levothyroxine 175 mcg tablet 175 mcg PO DAILY Qty: 90 3RF loperamide 2 mg Tablet Discontinued naproxen 500 mg tablet 500 mg PO BID MDD 1500mg Qty: 90 4RF Rx Instructions: Take 2 tabs every AM and 1 tab every evening Discharge Instructions Stand Alone Forms: [place] C. Tunnel Release, [place] T. Finger Release Referrals: Neel Cabrera MD [ [facility] STAFF PHYSICIAN] - Activity:: Activity as Tolerated Remove Dressings/Wound Care:: 48 hours Shower/Bathe:: 48 hours Diet:: As Tolerated Discharge Orders Discharge Orders: Discharge Order (Routine); Ordered 02/16/23 Ordered By: Adithya Cardenas DS: Diagnosis Discharge Diagnosis (1) Trigger finger, right ring finger: Status: Acute (2) Carpal tunnel syndrome, right: Status: Acute
[2023-02-16] MEDS: Lactated Ringers 1,000 ML 80 ML IV (13:06)
--- NOTE | 2023-02-16 13:19 | ANES.PREOP_ITS ---
General Info Date of Service Date Performed: 02/16/23 Height: 5 ft 7.5 in Weight: 109.9 kg Body Mass Index (BMI): 37.3 Surgical Procedure: Operation Date: 02/16/23 13:25 Proposed Procedure Side Surgeon p Wrist ECTR Right Neel Cabrera MD s Trigger Finger Release, RRF Right Neel Cabrera MD Meds Allergies and Home Medications Allergies Allergy/AdvReac Type Severity Reaction Status Date / Time Sulfa (Sulfonamide Allergy Severe Anaphylaxsi Verified 02/16/23 12:40 Antibiotics) s latex Allergy Intermediate Hives Verified 02/16/23 12:40 fentanyl AdvReac Intermediate went Verified 02/16/23 12:40 outside of her body, felt uncomfortable zolpidem tartrate AdvReac Mild sleep walks Verified 02/16/23 12:40 [From Ambien] Dust, cat dander Allergy Intermediate Hives Uncoded 02/16/23 12:40 Environmental Allergies Allergy Intermediate Rash Uncoded 02/16/23 12:40 Home Medication Medication Instructions Recorded blood-glucose meter,continuous #1 ea 06/16/20 (Dexcom G6 Fruit Sprayer) glucose 4 gram chewable tablet 4 g PO Q15M PRN hypoglycemia #7 06/16/20 (Dex4 Glucose) tabs levocetirizine 5 mg tablet (Xyzal) 5 mg PO PRN #30 tab-caps 06/16/20 pen needle, diabetic 31 gauge x #400 ea 06/16/20 5/16 (Pen Needle) sumatriptan succinate 50 mg tablet 50 mg PO PRN #30 tab-caps 06/16/20 (Imitrex) triamcinolone acetonide 0.1 % 1 applic topical BID PRN rash #30 06/16/20 topical cream grams glucagon (human recombinant) 1 mg 1 mg subcut Q20M PRN hypoglycemia 06/17/20 solution for injection (GlucaGen #1 ea HypoKit) metformin 500 mg tablet 500 mg PO BID #180 tabs 02/24/22 atorvastatin 40 mg tablet (Lipitor) 40 mg PO HS #90 tab-caps 04/27/22 blood-glucose transmitter (Dexcom #1 ea 04/27/22 G6 Transmitter device) magnesium oxide 400 mg PO DAILY #90 caps 04/27/22 mupirocin 2 % topical ointment 1 applic topical BID skin lesions 04/27/22 #44 grams blood-glucose sensor (Dexcom G6 #3 ea 04/28/22 Sensor device) insulin aspart U-100 100 unit/mL See Rx Instructions subcut TID 04/28/22 (3 mL) subcutaneous pen (Novolog E11.65, TID, 12-20units depending FlexPen U-100 Insulin aspart) on FS & carbs #15 mL insulin degludec 200 unit/mL (3 80 - 100 unit (0.4 - 0.5 mL) 04/28/22 mL) subcutaneous pen (Tresiba subcut DAILY Diabetes Mellitus #45 FlexTouch U-200 insulin) mL valacyclovir 1 gram tablet 1,000 mg PO BID PRN Herpes 04/28/22 outbreak #30 tabs fluticasone propionate 50 1 spray intranasal BID PRN 04/29/22 mcg/actuation nasal spray,suspension topiramate 25 mg tablet (Topamax) 25 mg PO QHS PRN 04/29/22 loperamide 2 mg tablet mg 05/10/22 psyllium husk (aspartame) 3.4 3 g PO BID 90 days #660 grams 05/20/22 gram/5.8 gram oral powder (Metamucil Sugar-Free (aspartame)) fluoxetine 40 mg capsule 40 mg PO DAILY depression #90 caps 05/24/22 nystatin 100,000 unit/gram topical 1 applic topical TID PRN rash #60 06/17/22 powder grams ammonium lactate 12 % topical cream 1 applic topical PRN pruritis #385 06/24/22 grams loratadine 10 mg tablet 10 mg PO DAILY #90 tab-caps 06/24/22 pantoprazole 40 mg tablet,delayed 40 mg PO DAILY #90 tab-caps 06/24/22 release hydrochlorothiazide 25 mg tablet 25 mg PO DAILY #90 tab-caps 09/09/22 lisdexamfetamine 40 mg capsule 40 mg PO DAILY #28 caps 11/22/22 (Vyvanse) lisinopril 10 mg tablet 10 mg PO DAILY #90 tabs 02/03/23 levothyroxine 175 mcg tablet 175 mcg PO DAILY #90 tab-caps 02/07/23 acetaminophen 500 mg tablet 1,000 mg (2 x 500 mg) PO TID #90 02/16/23 tabs hydrocodone 5 mg-acetaminophen 325 1 tab PO Q6H PRN pain #6 tabs 02/16/23 mg tablet ibuprofen 600 mg tablet 600 mg PO TID PRN pain #90 tabs 02/16/23 Current Visit Medications: Current Medications Generic Name Dose Route Start Last Admin Trade Name Gurpreet PRN Reason Stop Dose Admin Acetaminophen 650 mg 02/16/23 13:00 Acetaminophen 325 Mg Tab PO 03/18/23 12:59 Q4H PRN PRN Hydrocodone Bitart/Acetaminophen 0 tab 02/16/23 13:00 Hydrocodone 5/Acetaminophen 325 Tab PO 03/18/23 12:59 Q3H PRN PRN Pain Ringer's Solution 1,000 mls @ 80 mls/hr 02/16/23 06:00 02/16/23 13:06 IV 03/17/23 23:59 80 mls/hr INFUSION DELFINA Administration Cefazolin Sodium/Dextrose 2 gm in 50 mls @ 100 mls/hr 02/16/23 06:00 Ancef Duplex IVPB 03/17/23 23:59 PREOP DELFINA IV Miscellaneous Supplies 1 each 02/16/23 06:00 Iv Access IV 03/17/23 23:59 DIRECTED DELFINA Sodium Chloride 0 ml 02/16/23 06:00 Normal Saline Flush 10 Ml Syr IV 03/17/23 23:59 PRN PRN Sodium Chloride 0 ml 02/16/23 06:00 Normal Saline 10 Ml Vial IJ 03/17/23 23:59 DIRECTED PRN Sterile Water 0 ml 02/16/23 06:00 Water,Injection,Sterile 10 Ml Vial IJ 03/17/23 23:59 DIRECTED PRN PFSH Active Problems Active Problems: Problem Status Onset Code Trigger finger, right ring finger M65.341 Carpal tunnel syndrome, right G56.01 Rash and nonspecific skin eruption R21 Normal colonoscopy Family history of colon cancer in father Z80.0 Dysuria R30.0 Post traumatic stress disorder (PTSD) F43.10 Intercostal myalgia M79.18 Obesity (BMI 30-39.9) E66.9 Foot ulcer L97.509 Diabetic retinopathy ~01/01/21 E11.319 ADD (attention deficit disorder) F98.8 Atypical pigmented skin lesion L81.9 Fatigue R53.83 Skin lesion of scalp L98.9 Primary osteoarthritis of both knees M17.0 Sleep apnea 05/28/12 G47.30 Unspecified mental or behavioral problem MDD (major depressive disorder) F32.9 Hypothyroidism, acquired E03.9 Hypertension I10 Diabetes type 2, uncontrolled 04/22/15 E11.65 Chronic pain disorder G89.4 Medical History Medical History Ureteral stone History of hypothyroidism COVID-19 (~08/25/21) Changes in vision Diarrhea Diabetic feet Migraine headache without aura Constipation 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 Genital herpes HSV-1 primary outbreak. Surgical History Surgical History (Updated 02/16/23 @ 13:01 by JESUS ALBERTO Leblanc) History of colonoscopy (~05/10/22) History of bladder surgery History of section History of gynecological procedure Status post cholecystectomy Status post craniofacial reconstruction section 1999 & 2010 Endometrial Biopsy 12/24/13-[facility] Tooth extraction 11/18- EXTRACTION Cholecystectomy (~2005) CRANIO/MAXILLAFACIAL SURGERY (~2007) Pt. states she doesnt remember Bladder Surgery (~2002) Tobacco Smoking/Tobacco Use Status: Former Tobacco Use Second hand exposure: Yes Alcohol Alcohol Intake: former Substance Use Substance use: Never Substance use type: former substance user Vital Signs and Lab Results Vital Signs Most Recent Vital Signs in EMR: Most Recent Vital Signs Temp Pulse Resp BP Pulse Ox 36.7 C 80 16 140/82 98 02/16/23 12:46 02/16/23 12:46 02/16/23 12:46 02/16/23 12:46 02/16/23 12:46 Lab Results Blood Type / Crossmatch: No Data to Display Complete Blood Count: White Blood Count 6.35 10^3/uL (4.4-10.8) 02/03/23 11:30 Red Blood Count 3.94 10^6/uL (3.93-5.22) 02/03/23 11:30 Hemoglobin 10.8 g/dL (11.2-15.7) L 02/03/23 11:30 Hematocrit 34.1 % (36.0-46.0) L 02/03/23 11:30 Platelet Count 233 10^3/uL (130-400) 02/03/23 11:30 Complete Metabolic Panel: Sodium 140 mmol/L (136-145) 02/03/23 11:30 Potassium 4.1 mmol/L (3.5-5.1) 02/03/23 11:30 Chloride 104 mmol/L (98-107) 02/03/23 11:30 Carbon Dioxide 28.2 mmol/L (21.0-32.0) 02/03/23 11:30 BUN 17 mg/dL (7-18) 02/03/23 11:30 Creatinine 1.0 mg/dL (0.55-1.02) 02/03/23 11:30 Est GFR (CKD-EPI 2020) 69.06 (mL/min/1.73m2) 02/03/23 11:30 Calcium 9.2 mg/dL (8.5-10.1) 02/03/23 11:30 Albumin 3.6 g/dL (3.4-5.0) 02/03/23 11:30 Glucose 154 mg/dL (74-106) H 02/03/23 11:30 Hemoglobin A1c 6.5 % (<5.7) H 02/03/23 11:30 Liver Function Panel: Alanine Aminotransferase (ALT/SGPT) 69 U/L (14-59) H 02/03/23 1 1:30 Aspartate Amino Transf (AST/SGOT) 86 U/L (15-37) H 02/03/23 11: 30 Coagulation Panel: No Data to Display Cardiac Panel: No Data to Display Arterial Blood Gas: No Data to Display Venous Blood Gas: No Data to Display Pancreas Panel: No Data to Display Thyroid Panel: Thyroid Stimulating Hormone (TSH) 0.03 uIU/mL (0.36-3.74) L 02/03/23 11:30 Infectious Disease: No Data to Display Blood Cultures: No Data to Display Toxicology Panel: No Data to Display Panel: No Data to Display Anesthesia Assessment and Plan Anesthesia History Personal History: No History of Anesthesia Complications Family History: No Family History of Anesthesia Complications Exercise Tolerance Exercise Tolerance: Metabolic Equivalents>4 Pertinent Negatives Pertinent Negatives: No Symptoms of GERD Cardiac & Pulmonary Exam Cardiac Exam: Normal S1/S2 Heart Sounds Pulmonary Exam: Clear Bilateral Breath Sounds Implantable Cardiac Device Does patient have a Pacemaker or an ICD?: No Airway Exam Known Difficult Airway: No Mallampati Class: 2 Mouth Opening: Normal (> 3cm) Thyromental Distance: Greater than 3 cm Neck Range of Motion: Full ROM Neck Circumference: Thick Teeth Condition: Normal Dentition Airway Comments: Non-compliant with CPAP machine ASA Classification ASA Score: ASA 2 Emergency Case?: No NPO Status NPO Status: NPO Clears >2 hours, Solids >8 hours Status Status: Not Relevant due to Medical History Anesthesia Plan Resuscitation Status: Full Code Anesthesia Technique: MAC Anesthesia Airway Planned: Natural Airway Monitors Used: Standard Monitors
[2023-02-16 13:22] VITALS: BMI 37.3
[2023-02-16] MEDS: ceFAZolin 2 GM/50 ML BAG IVPB (14:02)
[2023-02-16] MEDS: Lidocaine 1% Multi-Dose W/EPI 1/100,000 50 ML VIAL (14:12)
[2023-02-16 14:35] VITALS: BP 119/69; PULSE 87; RESP 16; TEMP 36.3; O2SAT 92
--- NOTE | 2023-02-16 14:40 | W.ANESPOSTOP ---
Postoperative Evaluation Date, Time and Location Date Performed: 02/16/23 Time Performed: 14:40 Patient Location: Day Surgery Unit Vital Signs Most Recent Imported Vital Signs: Most Recent Vital Signs Temp Pulse Resp BP Pulse Ox 36.3 C L 87 16 119/69 92 02/16/23 14:35 02/16/23 14:35 02/16/23 14:35 02/16/23 14:35 02/16/23 14:35 Pain Score Most Recent Pain Score: Most Recent Pain Score Pain Level 0 02/16/23 14:35 Assessment Mental Status: Awake (Alert & Oriented to Patient Baseline) Airway and Respiratory Function: Patent airway with normal (patient baseline) respiratory exam Cardiovascular Function: Hemodynamically Stable Hydration Status: Adequately Hydrated Nausea & Vomiting: No Nausea or Vomiting Pain: Pt. Denies Any Pain Peripheral Nerve Block: Patient did not receive a nerve block
[2023-02-16 15:05] VITALS: BP 132/60; PULSE 89; RESP 16; TEMP 36.6; O2SAT 93
--- NOTE | 2023-02-16 15:22 | W.PM.OP ---
Date of service: 02/16/23 Time of Service: 14:00 Operative Note Operative Note DATE OF PROCEDURE: 02/16/23 PRE-OP DIAGNOSIS: Right Carpal Tunnel Syndrome and Right Ring Finger Trigger Finger POST-OP DIAGNOSIS: same PROCEDURE: Right Endoscopic Carpal Tunnel Release A1 Susan Release - Right Ring Finger SURGEON: Neel Cabrera ANESTHESIA TYPE: General:No Airway Refer to Anesthesia Record ESTIMATED BLOOD LOSS: 0 PATHOLOGY: none sent TOURNIQUET TIME: 8 COMPLICATIONS: None Patient was transported to: same day Patient's condition: stable Indications: I have seen Evita in clinic for symptoms of carpal tunnel syndrome as well as a right ring finger trigger finger. The numbness, tingling, and pain limited function. Clinical exam findings confirmed the diagnosis of carpal tunnel syndrome. Nonoperative measures such as bracing, time, activity modifications had been tried but disability and pain persisted. I discussed carpal tunnel release along with trigger finger release with the patient. I reviewed the risks of the procedure to include, but not limited to, bleeding, infection, pain, stiffness, incomplete release, damage to nerves or vessels, persistent numbness, recurrence. Despite these risks, the patient elected to proceed. Findings: There was tightened carpal tunnel. This was dilated and released successfully with the endoscopic with increased space within the tunnel. The antebrachial fascia was released proximally freeing the median nerve at the wrist. There was also a tightened A1 susan which was released without difficulty. Procedure Description: Evita was greeted in the preoperative holding area where the correct side was identified and marked. The consent was reviewed with the patient and signed. The history and physical was updated. All questions were answered. She was taken back to the operating room. The patient was placed into the supine position on the operating room table with the right arm on an arm board. A nonsterile tourniquet was placed high onto the arm. All bony prominences were well padded. Prophylactic antibiotics in the form of Cefazolin were administered. The right arm was then prepped with Chloraprep and draped in a standard fashion with stockinette and extremity drape. A timeout to confirm correct identity, side and site, procedure, allergies, anesthesia, and medical concerns was performed. The surgical site was marked in the volar wrist creases in line with the radial border of the fourth ray. This area was anesthetized with approximately 6cc of 1% Lidocaine with epinephrine, buffered with sodium bicarbonate. The limb was then exsanguinated with an Esmarch. The skin was incised with a 15 blade, approximately 1cm. The skin only was cut and the deeper tissue was dissected bluntly with a tenotomy scissor, avoiding passing nerve and venous structures. The fascia was penetrated and opened bluntly. A two-prong skin hook was placed under this proximal fascial edge. A series of hamate finders were used to identify and dilate the carpal tunnel. Synovial elevator was used to free synovial attachments to the underside of the transverse carpal ligament. My thumb was kept in the palm to roula the distal extent of the carpal tunnel and correctly position the hand. The [employer]aire endoscope was inserted without difficulty and without resistance. Excellent visualization showed horizontally running fibers of the transverse carpal ligament (TCL). The distal extent of the TCL was visualized and the end of the scope palpated with the thumb. The blade was elevated and withdrawn from distal to proximal. The TCL was split into two flaps. The endoscope was reinserted to confirm complete release and any remnant ligament was incised. The scope was withdrawn and the proximal aspect of the carpal tunnel was grossly inspected and appeared release with the median nerve visible. The antebrachial fascia at the level of the wrist was then freed from the overlying skin and then the underlying median nerve with blunt dissection. This was transected longitudinally for about 3cm proximal to the wrist incision. The wound was then irrigated with easy flow of irrigant distally and proximally. The incision was closed with a single 4-0 Nylon suture. Attention was then turned to the ring finger. This area was anesthetized with 1% Lidocaine with Epinephrine and buffered with sodium bicarbonate. A 1cm longitudinal incision was then made through the skin and the deep tissues were dissected bluntly. The A1 susan was identified. Using a tenotomy scissor the A1 susan was released. There was no A0 susan identified. The flexor tendons were elevated from the palm and inspected without significant synovitis or tearing. The wound was then irrigated. The would was closed with a 4-0 Nylon suture. The wound was dressed with Xeroform, Gauze, Kerlix and Carl. The tourniquet was deflated with the initial dressing and held with some pressure. Blood flow returned easily to all digits with capillary refill less than 2 seconds. The patient tolerated the procedure well and was returned to the Same Day Surgery area in a stable condition suffering no known complication.
== END 2023-02-16 15:33 | disposition home or self-care (01) ==
PROVIDERS: PCP Nurse Practitioner Family; Visit Provider Student in an Organized Health Care Education/Training Program
PROC: 01N54ZZ Release Median Nerve, Percutaneous Endoscopic Approach (ICD-10-PCS; CPT 29848; principal; 2023-02-16 13:15)
PROC: (CPT 26055; 2023-02-16 13:15)
DX: G56.01 Carpal tunnel syndrome, right upper limb; M65.341 Trigger finger, right ring finger
CPT/HCPCS: 29848; 26055; 81025; J0690; J1100; J2001; J2405

== ENCOUNTER 2023-02-18 08:49 | Outpatient (CLI) | payer MEDICAID, SELFPAY ==
[2023-02-18 12:23] LABS: Abs Immature Grans 0.01 10^3/uL (0.0-0.06); Absolute Basophil Count 0.03 10^3/uL (0.0-0.2); Absolute Eosinophil Count 0.34 10^3/uL (0.0-0.7); Absolute Monocyte Count 0.36 10^3/uL (0.1-0.8); Absolute Neutrophil Count 4.22 10^3/uL (1.2-6.7); Basophils % 0.4; Eosinophils % 4.5; HCT 36.5 % (36.0-46.0); HGB 11.8 g/dL (11.2-15.7); Immature Grans % 0.1; Lymphocytes % 34.4; MCH 28.4 pg (27.0-33.0); MCHC 32.3 % (32.0-36.0); MCV 88 fL (80-95); MPV 11.9 fL (8.0-11.0); Monocytes % 4.8; Neutrophils % 55.8; Platelet Count 272 10^3/uL (130-400); RBC 4.16 10^6/uL (3.93-5.22); RDW 12.6 % (11.7-14.6); WBC 7.56 10^3/uL (4.4-10.8)
[2023-02-18 13:37] LABS: ALT 76 U/L (14-59); AST 73 U/L (15-37); Albumin 3.6 g/dL (3.4-5.0); Alkaline Phosphatase 108 U/L (46-116); Anion Gap 9.3 mmol/L (3-11); BUN 25 mg/dL (7-18); Bilirubin, Total 0.5 mg/dL (0.2-1.0); CO2 24.7 mmol/L (21.0-32.0); CREATININE 0.9 mg/dL (0.55-1.02); Calcium 9.4 mg/dL (8.5-10.1); Chloride 107 mmol/L (98-107); Estimated GFR 78.37 (mL/min/1.73m2); Glucose 208 mg/dL (74-106); Lipase 36 U/L (16-77); Potassium 4.2 mmol/L (3.5-5.1); Sodium 141 mmol/L (136-145)
[2023-02-18 14:06] LABS: Amylase 37 U/L (25-115)
[2023-02-21 12:33] LABS: IgA 331 mg/dL (85-499); Interpretation (See Note); Tissue Transglutaminase IgA <4.0 CU (<20.0)
== END 2023-02-18 08:50 | disposition home or self-care (01) ==
LOC: LOS 08:49
PROVIDERS: PCP Nurse Practitioner Family; Visit Provider Nurse Practitioner Family
DX: E03.9 Hypothyroidism, unspecified (principal); E11.65 Type 2 diabetes mellitus with hyperglycemia; I10 Essential (primary) hypertension; R19.7 Diarrhea, unspecified
CPT/HCPCS: 36415; 80053; 82784; 83516; 83690; 82150; 85025

== ENCOUNTER 2023-02-25 01:57 | Outpatient (CLI) | payer MEDICAID, SELFPAY ==
[2023-02-25 10:02] LABS: Abs Immature Grans 0.01 10^3/uL (0.0-0.06); Absolute Basophil Count 0.02 10^3/uL (0.0-0.2); Absolute Eosinophil Count 0.15 10^3/uL (0.0-0.7); Absolute Lymphocyte Count 1.94 10^3/uL (1.2-3.4); Absolute Monocyte Count 0.36 10^3/uL (0.1-0.8); Absolute Neutrophil Count 4.06 10^3/uL (1.2-6.7); Basophils % 0.3; Eosinophils % 2.3; HCT 34.8 % (36.0-46.0); HGB 11.5 g/dL (11.2-15.7); Immature Grans % 0.2; Lymphocytes % 29.7; MCV 85 fL (80-95); MPV 11.6 fL (8.0-11.0); Monocytes % 5.5; Platelet Count 226 10^3/uL (130-400); RDW 12.3 % (11.7-14.6); RDW-SD 37.6 fL; WBC 6.54 10^3/uL (4.4-10.8)
[2023-02-25 10:33] LABS: ALT 41 U/L (14-59); AST 27 U/L (15-37); Albumin 3.5 g/dL (3.4-5.0); Alkaline Phosphatase 109 U/L (46-116); BUN 16 mg/dL (7-18); Bilirubin, Total 0.4 mg/dL (0.2-1.0); CREATININE 1.1 mg/dL (0.55-1.02); Calcium 9.2 mg/dL (8.5-10.1); Chloride 107 mmol/L (98-107); Estimated GFR 61.22 (mL/min/1.73m2); Glucose 268 mg/dL (74-106); Sodium 140 mmol/L (136-145); TSH (W/Ref FT4) 0.03 uIU/mL (0.36-3.74); Total Protein 7.7 g/dL (6.4-8.2)
[2023-02-25 10:52] LABS: FREE T4 1.33 ng/dL (0.76-1.46)
== END 2023-02-25 01:58 | disposition home or self-care (01) ==
LOC: LBO 01:57
PROVIDERS: PCP Nurse Practitioner Family; Visit Provider Nurse Practitioner Family
DX: R42 Dizziness and giddiness (principal)
CPT/HCPCS: 36415; 80053; 84439; 84443; 85025

== ENCOUNTER → 2023-03-16 10:03 | Outpatient (CLI) | payer MEDICAID, SELFPAY ==
--- NOTE | 2023-03-16 10:05 | DI.RAD_ITS ---
Exam(s) XR FOOT LT COMPLETE EXAM: XR FOOT LT COMPLETE CLINICAL HISTORY: evaluate osteomylelits L97.509 CHRONIC ULCER. TECHNIQUE: 2D digital imaging was performed of the left foot. Three images were obtained. AP, obli que and lateral views were obtained. COMPARISON: No exams were available for comparison FINDINGS: BONES: No acute fracture is present. No bony destructive lesion is seen. There is a moderate-sized pl rudy calcaneal spur. There is an enthesophyte at the posterior calcaneus. JOINTS: No dislocation present. There are degenerative changes seen at the tarsometatarsal joints. SOFT TISSUE: There is soft tissue swelling lateral to the 5th metatarsophalangeal joint. IMPRESSION: 1. Soft tissue swelling lateral to the 5th metatarsal phalangeal joint. 2. No destructive changes seen in the bones to suggest osteomyelitis. DATA REPOSITORY: RADIATION DOSE DELIVERED:
== END ==
PROVIDERS: PCP Nurse Practitioner Family; Visit Provider Nurse Practitioner Family
DX: L97.428 Non-pressure chronic ulcer of left heel and midfoot with other specified severity (principal); M79.89 Other specified soft tissue disorders; M77.32 Calcaneal spur, left foot
CPT/HCPCS: 73630

== ENCOUNTER 2023-03-21 11:39 | Outpatient (CLI) | payer MEDICAID, SELFPAY ==
[2023-03-21 12:52] LABS: ALT 79 U/L (14-59); AST 61 U/L (15-37); Albumin 3.7 g/dL (3.4-5.0); Alkaline Phosphatase 130 U/L (46-116); Anion Gap 10.6 mmol/L (3-11); BUN 15 mg/dL (7-18); Bilirubin, Total 0.4 mg/dL (0.2-1.0); CO2 26.4 mmol/L (21.0-32.0); Calcium 9.6 mg/dL (8.5-10.1); Chloride 105 mmol/L (98-107); Estimated GFR 68.63 (mL/min/1.73m2); Glucose 210 mg/dL (74-106); Potassium 3.9 mmol/L (3.5-5.1); Sodium 142 mmol/L (136-145); TSH (W/Ref FT4) 0.04 uIU/mL (0.36-3.74); Total Protein 8.3 g/dL (6.4-8.2)
[2023-03-21 13:11] LABS: FREE T4 1.19 ng/dL (0.76-1.46)
== END 2023-03-21 11:40 | disposition home or self-care (01) ==
LOC: LOS 11:39
PROVIDERS: PCP Nurse Practitioner Family; Referring Provider Nurse Practitioner Family; Visit Provider Nurse Practitioner Family
DX: E03.9 Hypothyroidism, unspecified (principal); E11.65 Type 2 diabetes mellitus with hyperglycemia; I10 Essential (primary) hypertension; R42 Dizziness and giddiness
CPT/HCPCS: 36415; 80053; 84439; 84443

== ENCOUNTER 2023-05-04 03:24 | Outpatient (CLI) | payer MEDICAID, SELFPAY ==
[2023-05-04 10:14] LABS: TSH (W/Ref FT4) 0.09 uIU/mL (0.36-3.74)
[2023-05-04 10:31] LABS: FREE T4 1.08 ng/dL (0.76-1.46)
== END 2023-05-04 03:25 | disposition home or self-care (01) ==
LOC: LBO 03:24
PROVIDERS: PCP Nurse Practitioner Family; Visit Provider Nurse Practitioner Family
DX: E03.9 Hypothyroidism, unspecified (principal)
CPT/HCPCS: 36415; 80048; 85027; 82607; 84439; 84443

== ENCOUNTER 2023-05-17 10:20 | Emergency (ER) | payer MEDICAID, SELFPAY ==
[2023-05-17 10:23] VITALS: BP 119/66; PULSE 89; RESP 18; O2SAT 96
--- NOTE | 2023-05-17 10:41 | DI.CT_ITS ---
Exam(s) CT ABDOMEN PELVIS W EXAM: CT ABDOMEN PELVIS W CLINICAL HISTORY: lower abdominal pain. TECHNIQUE: Imaging Protocol: Axial computed tomography images with coronal and sagittal reformatted images were created and reviewed CONTRAST MATERIAL: Intravenous: Omnipaque-350 100cc Oral: None COMPARISON: CT CT ABDOMEN PELVIS WO from 07/27/2022 FINDINGS: VISUALIZED LUNG BASES: There is a noncalcified nodule in the left lung base anterior basal segment left lower lobe measuring 10 mm, not previously present on the CT scan of 07/27/2022. This is a concerning noncalcified nodul e. Chest CT scan is recommended. There is also a subpleural 6 millimeter nodule in the lateral basal segment of the right lower lobe. There is also a 5 millimeter similar appearing nodule pleural-based in the medial right lower lobe e vident. Both are slightly larger than previous. ABDOMEN: There is no ascites. LIVER: There is a partially calcified nodule in the upper right hepatic lobe unchanged from 3. Medial to this is a 9 x 8 millimeter hypodensity in the upper right hepatic lobe which was not ev ident on the prior noninfused study. Probably represents a hemangioma. There are no other distinct focal hepatic lesions nor dilated intrahepatic ducts. No dilated intrahepatic ducts. GALLBLADDER/BILIARY: Gallbladder is again noted be surgically absent. CBD is not dilated. PANCREAS: No evidence of pancreatic mass nor dilatation of the pancreatic duct. SPLEEN: Spleen is enlarged, measuring 15 cm craniocaudal. There are no splenic lesions evident. Spl enic and portal veins are patent. ADRENALS: There are no significant adrenal masses. KIDNEYS:Bilateral extrarenal pelves without associated caliectasis. No hydronephrosis. No hydrouret er. No cysts nor solid renal masses evident. URINARY BLADDER : Mild uniform thickening of the urinary bladder wall possibly exaggerated by under d istension. Pelvic ureters are not dilated. ABDOMINAL AORTA: Abdominal aorta is not enlarged. LYMPH NODES:There is no retroperitoneal nor paraaortic adenopathy. ABDOMINAL WALL: No evidence of significant anterior abdominal wall nor inguinal hernia. GI: There is no evidence of bowel obstruction, free air, nor abscess. PELVIS: GI: No evidence of appendicitis.There are few sigmoid diverticuli without evidence of obvious acute d iverticulitis. LYMPH NODES: There is no intrapelvic nor inguinal adenopathy. REPRODUCTIVE: Uterus and adnexal regions appear unremarkable. No free fluid. Previously described h yperdense structure in the left labia majora measuring 2.5 by 2.4 cm again noted. 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 Stable since 2017 URINARY BLADDER: No calculi nor obvious masses evident OSSEOUS: Degenerative anterolisthesis of L4 upon L5 is again noted. Mild disc space narrowing at thi s level. There are no fractures. No significant osseous lesions evident. IMPRESSION: 1. Uppermost images reveal a new 1 cm noncalcified nodule in the left lower lobe. There are few smal ler subpleural nodules in the lung bases also noted. Recommend follow-up full chest CT scan. 2. Gallbladder is again noted be surgically absent. The biliary tree is not noted. 3. Splenomegaly is again noted. Cephalocaudal length of the spleen is 15 cm. 4. Two findings in the upper right hepatic lobe, 1 previously present and the other more evident on t he present study possibly related to the fact that the present study was contrast infused. This prob ably represents a benign hemangioma but can not be certain without dedicated hemangioma study. Report called by myself to ER physician RADIATION DOSE DELIVERED: Total DLP DATA REPOSITORY: All CT scans at this facility are submitted to the National Radiology Data Registry (NRDR) Dose Index Registry (DIR) with the [employer] ([employer]). RADIATION OPTIMIZATION: All CT scans at this facility use at least one of these dose optimization te chniques: automated exposure control; mA and/or kV adjustment per patient size (includes targeted exa ms where dose is matched to clinical indication); or iterative reconstruction.
--- NOTE | 2023-05-17 10:41 | ED.GENADUL_ITS ---
Discharge Plan Disposition Patient Disposition: Home Condition: Stable Discharge Details Clinical Impression: Lung nodule, Nausea & vomiting, Abdominal pain Primary Care Provider: Yadira Ngo ED Provider: Izaiah Bolivar Home Meds and New Rx's Prescriptions: New ondansetron 4 mg tablet,disintegrating 4 mg PO Q8H PRN (Reason: nausea and vomiting) Qty: 30 0RF Continued fluoxetine 40 mg capsule 40 mg PO DAILY Qty: 90 4RF nystatin 100,000 unit/gram powder 1 applic Topical TID PRN (Reason: rash) Qty: 60 3RF Rx Instructions: Apply to groin rash three times per day in between steroid cream applications. lisinopril 10 mg tablet 10 mg PO DAILY Qty: 90 3RF levothyroxine 150 mcg tablet 150 mcg PO DAILY Qty: 90 3RF fluticasone propionate 50 mcg/actuation spray,suspension 1 spray intranasal BID PRN Rx Instructions: administer into each nostril Metamucil Sugar-Free (aspart) 3.4 gram/5.8 gram powder 3 g PO BID 90 Days Qty: 660 1RF norethindrone acetate 5 mg tablet 5 mg PO DAILY naproxen 500 mg tablet 500 mg PO DAILY Patient Comments: take two 500mg at hs chlorthalidone 25 mg tablet 25 mg PO DAILY Qty: 90 3RF triamcinolone acetonide 0.1 % cream 1 applic Topical BID PRN (Reason: rash) Qty: 30 2RF Rx Instructions: Apply to rash on breast 0.025% topiramate 25 mg tablet 25 mg PO QHS Qty: 90 3RF lisdexamfetamine [Vyvanse] 40 mg capsule 40 mg PO DAILY MDD 40mg Qty: 28 0RF (DME) Dexcom G6 Transmitter Device See Rx Instructions .ROUTE .MEDSUPPLY Qty: 1 4RF Rx Instructions: As directed (DME) Dexcom G6 Sensor Device See Rx Instructions .ROUTE .MEDSUPPLY Qty: 3 12RF Rx Instructions: As directed insulin degludec [Tresiba FlexTouch U-200] 200 unit/mL (3 mL) insulin pen 80 - 100 unit subcut DAILY Qty: 45 3RF Hold Instructions: Home Medication placed on hold at Doctor's office Rx Instructions: As directed insulin aspart U-100 [Novolog FlexPen U-100 Insulin] 100 unit/mL (3 mL) insulin pen See Rx Instructions Sub-Q TID Qty: 15 3RF Hold Instructions: Changed by Provider Dose Instruction: Units determined by FS and carb intake Sub-Q TID; E11.65 Patient Comments: pt doesnt remember how many units Rx Instructions: Units determined by FS and carb intake Sub-Q TID; E11.65 atorvastatin 80 mg tablet 80 mg PO QHS Hold Instructions: Home Medication placed on hold at Doctor's office Ozempic 0.25 mg or 0.5 mg (2 mg/3 mL) pen injector 0.25 mg subcut QWEEK (DME) Dexcom G6 Operating Room Assistant Misc See Rx Instructions .ROUTE .MEDSUPPLY Qty: 1 0RF Rx Instructions: As directed glucose [Dex4 Glucose] 4 gram tablet,chewable 4 g PO Q15M PRN (Reason: hypoglycemia) Qty: 7 2RF Rx Instructions: until response levocetirizine [Xyzal] 5 mg tablet 5 mg PO PRN Qty: 30 3RF Hold Instructions: Home Medication placed on hold at Doctor's office (DME) pen needle, diabetic [Pen Needle] 31 gauge x 5/16 needle 1 ea Miscellaneous QID Qty: 400 3RF Rx Instructions: Dx E11.65 Pt using long- acting and mealtime insulin. sumatriptan succinate [Imitrex] 50 mg tablet 50 mg PO PRN MDD 200mg Qty: 30 3RF Rx Instructions: GlucaGen HypoKit 1 mg recon soln 1 mg subcut Q20M PRN (Reason: hypoglycemia) Qty: 1 0RF Rx Instructions: until target blood sugar attained mupirocin 2 % ointment 1 applic TP BID Qty: 44 3RF atorvastatin [Lipitor] 40 mg tablet 40 mg PO HS Qty: 90 3RF magnesium oxide 400 mg magnesium capsule 400 mg PO DAILY Qty: 90 3RF valacyclovir 1 gram tablet 1,000 mg PO BID PRN (Reason: Herpes outbreak) Qty: 30 1RF Rx Instructions: Take 1 tab two times per day for 3 days PRN loratadine 10 mg tablet 10 mg PO DAILY Qty: 90 3RF pantoprazole 40 mg tablet,delayed release (DR/EC) 40 mg PO DAILY Qty: 90 3RF ammonium lactate 12 % cream 1 applic topical PRN Qty: 385 1RF Rx Instructions: Apply to itchy skin externally as needed acetaminophen 500 mg tablet 1,000 mg PO TID Qty: 90 0RF ibuprofen 600 mg tablet 600 mg PO TID PRN (Reason: pain) Qty: 90 0RF Discharge Instructions Instructions: Acute Nausea and Vomiting (ED) Additional Instructions: Your labs and imaging did not show any emergent concerning findings, you do have a lung nodule which your primary care provider should be aware of because you will need follow-up outpatient CT imaging. Follow-up with your primary care provider within 1 to 2 weeks Take the ondansetron as needed every 6-8 hours for nausea and vomiting No more ill, have severe worsening abdominal pain or persistent vomiting despite the medication return to the emergency department for reevaluation HPI General Mode of arrival: ambulatory . Date/Time Provider Initiated Documentation: 05/17/23 10:28 . Limitations to Documentation: no limitations . Information obtained by: patient . History of Present Illness 48 year old F presents to the emergency department with the chief complaint of Diarrhea nausea, described as moderate, Patient started experiencing this day(s) (6) and it has been intermittent. No relieving factors improve symptom(s), No exacerbating factors reported . Patient notes denies chest pain, fever/chills and shortness of breath. Related Data Home Medications Medication Instructions Recorded Confirmed blood-glucose meter,continuous #1 ea 06/16/20 05/12/23 (Dexcom G6 Operating Room Assistant) glucose 4 gram chewable tablet 4 g PO Q15M PRN hypoglycemia #7 06/16/20 05/17/23 (Dex4 Glucose) tabs levocetirizine 5 mg tablet (Xyzal) 5 mg PO PRN #30 tab-caps 06/16/20 05/17/23 pen needle, diabetic 31 gauge x #400 ea 06/16/20 05/12/23 5/16 (Pen Needle) sumatriptan succinate 50 mg tablet 50 mg PO PRN #30 tab-caps 06/16/20 05/17/23 (Imitrex) glucagon (human recombinant) 1 mg 1 mg subcut Q20M PRN hypoglycemia 06/17/20 05/17/23 solution for injection (GlucaGen #1 ea HypoKit) atorvastatin 40 mg tablet (Lipitor) 40 mg PO HS #90 tab-caps 04/27/22 05/17/23 magnesium oxide 400 mg PO DAILY #90 caps 04/27/22 05/17/23 mupirocin 2 % topical ointment 1 applic topical BID skin lesions 04/27/22 05/17/23 #44 grams valacyclovir 1 gram tablet 1,000 mg PO BID PRN Herpes 04/28/22 05/17/23 outbreak #30 tabs fluticasone propionate 50 1 spray intranasal BID PRN 04/29/22 05/17/23 mcg/actuation nasal spray,suspension psyllium husk (aspartame) 3.4 3 g PO BID 90 days #660 grams 05/20/22 05/17/23 gram/5.8 gram oral powder (Metamucil Sugar-Free (aspartame)) fluoxetine 40 mg capsule 40 mg PO DAILY depression #90 caps 05/24/22 05/17/23 nystatin 100,000 unit/gram topical 1 applic topical TID PRN rash #60 06/17/22 05/17/23 powder grams ammonium lactate 12 % topical cream 1 applic topical PRN pruritis #385 06/24/22 05/17/23 grams loratadine 10 mg tablet 10 mg PO DAILY #90 tab-caps 06/24/22 05/17/23 pantoprazole 40 mg tablet,delayed 40 mg PO DAILY #90 tab-caps 06/24/22 05/17/23 release lisinopril 10 mg tablet 10 mg PO DAILY #90 tabs 02/03/23 05/17/23 acetaminophen 500 mg tablet 1,000 mg (2 x 500 mg) PO TID #90 02/16/23 05/17/23 tabs ibuprofen 600 mg tablet 600 mg PO TID PRN pain #90 tabs 02/16/23 05/17/23 naproxen 500 mg tablet 500 mg PO DAILY 02/17/23 05/17/23 norethindrone acetate 5 mg tablet 5 mg PO DAILY 02/17/23 05/17/23 levothyroxine 150 mcg tablet 150 mcg PO DAILY #90 tab-caps 03/01/23 05/17/23 lisdexamfetamine 40 mg capsule 40 mg PO DAILY #28 caps 04/05/23 05/17/23 (Vyvanse) chlorthalidone 25 mg tablet 25 mg PO DAILY #90 tabs 05/05/23 05/17/23 topiramate 25 mg tablet 25 mg PO QHS #90 tabs 05/05/23 05/17/23 triamcinolone acetonide 0.1 % 1 applic topical BID PRN rash #30 05/05/23 05/17/23 topical cream grams atorvastatin 80 mg tablet 80 mg PO QHS 05/12/23 05/17/23 blood-glucose sensor (Dexcom G6 #3 ea 05/12/23 05/12/23 Sensor device) blood-glucose transmitter (Dexcom #1 ea 05/12/23 05/12/23 G6 Transmitter device) insulin aspart U-100 100 unit/mL See Rx Instructions subcut TID 05/12/23 05/17/23 (3 mL) subcutaneous pen (Novolog E11.65, TID, 12-20units depending FlexPen U-100 Insulin aspart) on FS & carbs #15 mL insulin degludec 200 unit/mL (3 80 - 100 unit (0.4 - 0.5 mL) 05/12/23 05/17/23 mL) subcutaneous pen (Tresiba subcut DAILY Diabetes Mellitus #45 FlexTouch U-200 insulin) mL semaglutide 0.25 mg or 0.5 mg (2 0.25 mg subcut QWEEK 05/12/23 05/17/23 mg/3 mL) subcutaneous pen injector (Ozempic) ondansetron 4 mg disintegrating 4 mg PO Q8H PRN nausea and 05/17/23 tablet vomiting #30 tabs Previous Rx's Medication Instructions Recorded blood-glucose meter,continuous #1 ea 06/16/20 (Dexcom G6 Operating Room Assistant) glucose 4 gram chewable tablet 4 g PO Q15M PRN hypoglycemia #7 06/16/20 (Dex4 Glucose) tabs levocetirizine 5 mg tablet (Xyzal) 5 mg PO PRN #30 tab-caps 06/16/20 pen needle, diabetic 31 gauge x #400 ea 06/16/20/ (Pen Needle) sumatriptan succinate 50 mg tablet 50 mg PO PRN #30 tab-caps 06/16/20 (Imitrex) glucagon (human recombinant) 1 mg 1 mg subcut Q20M PRN hypoglycemia 06/17/20 solution for injection (GlucaGen #1 ea HypoKit) atorvastatin 40 mg tablet (Lipitor) 40 mg PO HS #90 tab-caps 04/27/22 magnesium oxide 400 mg PO DAILY #90 caps 04/27/22 mupirocin 2 % topical ointment 1 applic topical BID skin lesions 04/27/22 #44 grams valacyclovir 1 gram tablet 1,000 mg PO BID PRN Herpes 04/28/22 outbreak #30 tabs psyllium husk (aspartame) 3.4 3 g PO BID 90 days #660 grams 05/20/22 gram/5.8 gram oral powder (Metamucil Sugar-Free (aspartame)) fluoxetine 40 mg capsule 40 mg PO DAILY depression #90 caps 05/24/22 nystatin 100,000 unit/gram topical 1 applic topical TID PRN rash #60 06/17/22 powder grams ammonium lactate 12 % topical cream 1 applic topical PRN pruritis #385 06/24/22 grams loratadine 10 mg tablet 10 mg PO DAILY #90 tab-caps 06/24/22 pantoprazole 40 mg tablet,delayed 40 mg PO DAILY #90 tab-caps 06/24/22 release lisinopril 10 mg tablet 10 mg PO DAILY #90 tabs 02/03/23 acetaminophen 500 mg tablet 1,000 mg (2 x 500 mg) PO TID #90 02/16/23 tabs ibuprofen 600 mg tablet 600 mg PO TID PRN pain #90 tabs 02/16/23 levothyroxine 150 mcg tablet 150 mcg PO DAILY #90 tab-caps 03/01/23 lisdexamfetamine 40 mg capsule 40 mg PO DAILY #28 caps 04/05/23 (Vyvanse) chlorthalidone 25 mg tablet 25 mg PO DAILY #90 tabs 05/05/23 topiramate 25 mg tablet 25 mg PO QHS #90 tabs 05/05/23 triamcinolone acetonide 0.1 % 1 applic topical BID PRN rash #30 05/05/23 topical cream grams blood-glucose sensor (Dexcom G6 #3 ea 05/12/23 Sensor device) blood-glucose transmitter (Dexcom #1 ea 05/12/23 G6 Transmitter device) insulin aspart U-100 100 unit/mL See Rx Instructions subcut TID 05/12/23 (3 mL) subcutaneous pen (Novolog E11.65, TID, 12-20units depending FlexPen U-100 Insulin aspart) on FS & carbs #15 mL insulin degludec 200 unit/mL (3 80 - 100 unit (0.4 - 0.5 mL) 05/12/23 mL) subcutaneous pen (Tresiba subcut DAILY Diabetes Mellitus #45 FlexTouch U-200 insulin) mL ondansetron 4 mg disintegrating 4 mg PO Q8H PRN nausea and 05/17/23 tablet vomiting #30 tabs Allergies Allergy/AdvReac Type Severity Reaction Status Date / Time Sulfa (Sulfonamide Allergy Severe Anaphylaxsi Verified 05/17/23 10:26 Antibiotics) s latex Allergy Intermediate Hives Verified 05/17/23 10:26 fentanyl AdvReac Intermediate went Verified 05/17/23 10:26 outside of her body, felt uncomfortable zolpidem tartrate AdvReac Mild sleep walks Verified 05/17/23 10:26 [From Ambien] Dust, cat dander Allergy Intermediate Hives Uncoded 05/17/23 10:26 Environmental Allergies Allergy Intermediate Rash Uncoded 05/17/23 10:26 General Stated Complaint: GenMedical RODNEY: 3 Review of Systems All systems reviewed & are unremarkable except as noted in HPI and below Constitutional Constitutional: Denies chills, Denies fever(s) and Denies weakness Cardiovascular Cardiovascular: Denies chest pain and Denies dyspnea Respiratory Respiratory: Denies cough and Denies dyspnea Gastrointestinal Gastrointestinal: Denies vomiting Genitourinary Genitourinary: Denies dysuria Integumentary/Breasts Skin/Breast: Denies rash Neurologic Neurologic: Denies weakness Exam Const General: no acute distress Orientation: alert [facility] Head: normal to inspection Ears: external ears normal General nose exam: external nose normal Mouth: moist mucous membranes Eyes General: appearance normal, both eyes and all related structures Neck Neck: normal visual inspection Resp Effort & Inspection: normal respiratory effort and able to speak in complete sentences Auscultation: clear to auscultation bilaterally Cardio Jugular venous pressure: no JVD Rate: regular rate Heart Sounds: no murmurs GI Palpation: soft and tender Skin General skin exam: no rashes or lesions noted Neuro General: patient alert and patient oriented x3 Extrem General: normal to inspection Psych Mental Status: mental status grossly normal Course Vital Signs Vital signs: Vital Signs Pulse 89 05/17/23 10:23 Respiratory Rate 18 05/17/23 10:23 Blood Pressure 119/66 03/12/24 10:23 Pulse Oximetry 96 05/17/23 10:23 Pulse 89 05/17/23 10:23 Respiratory Rate 18 05/17/23 10:23 Respiratory Effort Normal, Non-Labored 05/17/23 10:26 Blood Pressure 119/66 05/17/23 10:23 Blood Pressure Position Sitting 05/17/23 10:23 Pulse Oximetry 96 05/17/23 10:23 Oxygen Delivery Method Room Air 05/17/23 10:23 Oxygen Flow Rate 0 05/17/23 10:23 Medical Decision Making 48-year-old female who is a chronic issue with diarrhea and has been referred to gastroenterology through her primary care, comes in with 6 days of worsening diarrhea with intermittent constipation per patient along with nausea. He did start Ozempic last Tuesday, and got a 1 mg dose instead of her 0.25 mg dose. She denies any chest pain, difficulty breathing, fevers, vomiting. She is alert and oriented x 4 on arrival, no acute distress, abdomen is soft, does have tenderness in the left lower and right lower quadrant without guarding or rebound. Suspect her symptoms could be from the Ozempic but will check CBC, CMP, lipase, and CT abdomen pelvis to evaluate for entities such as colitis and diverticulitis Labs show no significant acute findings, CT also does not show any significant emergent findings, has likely liver hemangioma and known splenomegaly, does have a lung nodule. Patient is stable and feeling better tolerating p.o. Discussed CT exam findings, advised she will need to follow-up outpatient CT with her primary care provider. Also advised to discuss with her provider if she should continue Ozempic at a lower dose. She is stable for discharge, advised to follow-up with her PCP and return precautions given Differential Diagnosis Differential Diagnosis: Drug side effect, colitis, diverticulitis Imaging Data Radiologic Study: Attestation: I personally reviewed and interpreted this imaging study as follows: Imaging: CT Scan Radiologist's impression: IMPRESSION: 1. Uppermost images reveal a new 1 cm noncalcified nodule in the left lower lobe. There are few smaller subpleural nodules in the lung bases also noted. Recommend follow-up full chest CT scan. 2. Gallbladder is again noted be surgically absent. The biliary tree is not noted. 3. Splenomegaly is again noted. Cephalocaudal length of the spleen is 15 cm. 4. Two findings in the upper right hepatic lobe, 1 previously present and the other more evident on the present study possibly related to the fact that the present study was contrast infused. This probably represents a benign hemangioma but can not be certain without dedicated hemangioma study. Lab Data Lab results reviewed: Yes I reviewed the patient's lab results. Quality:SDOH Health Related Social Needs: No Data to Display PFSH All Active Problems (Updated 05/17/23 @ 13:00 by Izaiah Bolivar MD) Abdominal pain (Acute) Nausea & vomiting (Acute) Lung nodule (Acute) Elevated LFTs (Acute) Rash and nonspecific skin eruption (Acute) fungal under breast, abd groin Normal colonoscopy (Acute) Family history of colon cancer in father (Acute) Patient was greater than 60 at the time of diagnosis Dysuria (Acute) Post traumatic stress disorder (PTSD) (Acute) Intercostal myalgia (Acute) Left Obesity (BMI 30-39.9) (Acute) Foot ulcer (Acute) Right ankle Diabetic retinopathy (Acute ~01/01/21) 01/01/21 MILD BACKGROUND RETINOPATHY-DR. JENNIFER BARNEY (attention deficit disorder) (Acute) Atypical pigmented skin lesion (Acute) Fatigue (Acute) Skin lesion of scalp (Acute) 05/2020 - [place]opsy negative [place] [facility] [place] - Recurrent Primary osteoarthritis of both knees (Acute) RIGHT knee steroid injection (40mg): 11/15/2022 Synvisc injections bilaterally: 06/22/2019 Sleep apnea (Chronic 05/28/12) Unspecified mental or behavioral problem (Acute) Periodic non-compliance with treatment program. 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 Genital herpes HSV-1 primary outbreak. Surgical History Trigger finger, right ring finger S/P Release: 02/16/2023 Carpal tunnel syndrome, right S/P ECTR: 02/16/2023 History of colonoscopy (~05/10/22) History of bladder surgery History of section History of gynecological procedure Status post cholecystectomy Status post craniofacial reconstruction section 1999 & 2010 Endometrial Biopsy 12/24/13-[facility] Tooth extraction 11/18- EXTRACTION Cholecystectomy (~2005) CRANIO/MAXILLAFACIAL SURGERY (~2007) Pt. states she doesnt remember Bladder Surgery (~2002) Family History Mother No problems noted. Father Alcohol abuse Prostate cancer Sister No problems noted. Brother Stroke x2 (five years apart) Maternal Grandfather Essential hypertension Heart disease Hyperlipidemia Paternal Grandfather , AGE 57 Myocardial infarction Brain tumor Maternal Grandmother , AGE 85 Essential hypertension Paternal Grandmother , AGE 85 Personal history of malignant neoplasm COLON MATERNAL AUNT Essential hypertension Cancer MATERNAL UNCLE Essential hypertension Social History Smoking/Tobacco Use Status: Former Tobacco Use tobacco type: cigarettes Quit Date: 03/07/14 Pack-years: 10 Second Hand Exposure: Yes Smoking risk assessment performed?: Yes Alcohol Intake: former Drug use: Never Substance use type: former substance user Caregiver/Support person: No Household members: children and other Details: 2 Housing: apartment Number of Children: 4 Do you need help understanding health information?: Always 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 Pets and animals: Yes Pets and animals: cat(s) and dog(s) Sexually active: No Do you think of yourself as: straight/heterosexual Current gender identity: female What is your relationship status?: never How often do you talk on the phone with friends or family?: three or more times per week How often do you get together with friends or relatives?: three or more times per week How often do you attend mosque or zoroastrian services?: 4 or more times per year Do you belong to any clubs or organized social groups?: no Panel score (0-1 are the most socially isolated patients): 2 What type of physical activity do you participate in: walking and swimming Duration: 15-30 minutes/day Frequency: 3-4 times per week Jailyn/Mormon: Faith Special jailyn needs: No (SINGING) Seatbelt use: sometimes Helmet use: No Drive intox or ride w/intox driver license technician: No Do you feel safe at home: Yes Do you feel safe in your relationship?: Yes
[2023-05-17 11:23] LABS: BE (Venous) 0 mmol/L (-2-3); HCO3 (Venous) 26 mmol/L (23-28); O2 Sat (Venous) 49 %; TCO2 (Venous) 24 mmol/L (24-29); pCO2 (Venous) 49 mmHg (41-51); pH (Venous) 7.33 (7.31-7.41); pO2 (Venous) 26 mmHg
[2023-05-17 11:24] LABS: Abs Immature Grans 0.01 10^3/uL (0.0-0.06); Absolute Basophil Count 0.02 10^3/uL (0.0-0.2); Absolute Eosinophil Count 0.26 10^3/uL (0.0-0.7); Absolute Lymphocyte Count 2.69 10^3/uL (1.2-3.4); Absolute Monocyte Count 0.47 10^3/uL (0.1-0.8); Absolute Neutrophil Count 5.21 10^3/uL (1.2-6.7); Basophils % 0.2; HCT 41.2 % (36.0-46.0); HGB 13.5 g/dL (11.2-15.7); Immature Grans % 0.1; Lymphocytes % 31.1; MCH 28.7 pg (27.0-33.0); MCHC 32.8 % (32.0-36.0); MCV 88 fL (80-95); MPV 11.4 fL (8.0-11.0); Monocytes % 5.4; Neutrophils % 60.2; Platelet Count 311 10^3/uL (130-400); RDW 13.2 % (11.7-14.6); RDW-SD 42.2 fL; WBC 8.66 10^3/uL (4.4-10.8)
[2023-05-17 11:31] VITALS: BP 119/66; PULSE 89; RESP 18; O2SAT 96
[2023-05-17] MEDS: Normal Saline 1,000 ML 1000 ML IV (11:36)
[2023-05-17 11:42] LABS: PTT Activated 26.1 sec (23.6-32.8); Prothrombin Time 9.9 sec (9.1-11.1)
[2023-05-17 11:53] LABS: ALT 63 U/L (14-59); AST 48 U/L (15-37); Albumin 4.3 g/dL (3.4-5.0); Alkaline Phosphatase 126 U/L (46-116); Anion Gap 11.3 mmol/L (3-11); BUN 36 mg/dL (7-18); Bilirubin, Total 0.9 mg/dL (0.2-1.0); CO2 26.7 mmol/L (21.0-32.0); CREATININE 1.6 mg/dL (0.55-1.02); Calcium 9.9 mg/dL (8.5-10.1); Chloride 104 mmol/L (98-107); Estimated GFR 39.05 (mL/min/1.73m2); Glucose 103 mg/dL (74-106); Lipase 34 U/L (16-77); Magnesium 2.5 mg/dL (1.8-2.4); Potassium 4.3 mmol/L (3.5-5.1); Sodium 142 mmol/L (136-145); Total Protein 9.1 g/dL (6.4-8.2)
[2023-05-17 12:10] LABS: FREE T4 1.15 ng/dL (0.76-1.46)
[2023-05-17] MEDS: Normal Saline - Diluent 50 ML VIAL IJ (12:11)
[2023-05-17] MEDS: Omnipaque 350 MG/ML 100 ML BTL IJ (12:12)
[2023-05-17 13:10] LABS: COVID-19 PCR Negative (Negative); Influenza A PCR Negative (Negative); Influenza B PCR Negative (Negative); RSV PCR Negative (Negative)
[2023-05-17 13:12] LABS: Source Nasopharynx
[2023-05-17 13:21] LABS: Bilirubin Negative (Negative); Blood Negative (Negative); Clarity Clear (Clear); Glucose Negative (Negative); Ketones Negative (Negative); Leukocyte Esterase Small (Negative); Nitrite Negative (Negative); Specific Gravity 1.015 (1.005-1.025); Urobilinogen 0.2 mg/dL (Up to 0.2)
[2023-05-17 13:29] LABS: Bacteria Moderate HPF (Negative); C & S Indicated? No/Sq. Contamination; Casts Negative LPF (Negative); Crystals Negative HPF (Negative); Epithelial Cells Many HPF (Negative); Mucus Negative (Negative); RBC 0-2 HPF (0-2); WBC 20-50 HPF (0-5)
[2023-05-17 13:32] VITALS: BP 123/70; PULSE 74; RESP 18; O2SAT 96
== END 2023-05-17 13:17 | disposition home or self-care (01) ==
PROVIDERS: Emergency Provider Emergency Medicine; PCP Nurse Practitioner Family
DX: R51.0 Headache with orthostatic component, not elsewhere classified (principal); R42 Dizziness and giddiness; R19.7 Diarrhea, unspecified; R11.2 Nausea with vomiting, unspecified; R91.1 Solitary pulmonary nodule; R10.9 Unspecified abdominal pain; Z79.899 Other long term (current) drug therapy; E11.9 Type 2 diabetes mellitus without complications; E03.9 Hypothyroidism, unspecified; I10 Essential (primary) hypertension
CPT/HCPCS: 36415; 80053; 82805; 83690; 87637; 96360; 96361; 99285; 74177; 81003; 81015; 83735; 84439; 84443; 85025; 85610; 85730; 99284; J3490

== ENCOUNTER 2023-05-19 16:54 | Emergency (ER) | payer MEDICAID, SELFPAY ==
[2023-05-19 17:11] VITALS: BP 104/57; PULSE 82; RESP 16; TEMP 36.5; O2SAT 99
--- NOTE | 2023-05-19 17:23 | W.ED.GENAD ---
Discharge Plan Disposition Patient Disposition: Home Condition: Stable Discharge Details Clinical Impression: Blurred vision, left eye Primary Care Provider: Yadira Ngo ED Provider: Alfonzo Linares Home Meds and New Rx's Prescriptions: Continued fluoxetine 40 mg capsule 40 mg PO DAILY Qty: 90 4RF nystatin 100,000 unit/gram powder 1 applic Topical TID PRN (Reason: rash) Qty: 60 3RF Rx Instructions: Apply to groin rash three times per day in between steroid cream applications. lisinopril 10 mg tablet 10 mg PO DAILY Qty: 90 3RF fluticasone propionate 50 mcg/actuation spray,suspension 1 spray intranasal BID PRN Rx Instructions: administer into each nostril Metamucil Sugar-Free (aspart) 3.4 gram/5.8 gram powder 3 g PO BID 90 Days Qty: 660 1RF norethindrone acetate 5 mg tablet 5 mg PO DAILY naproxen 500 mg tablet 500 mg PO DAILY Patient Comments: take two 500mg at hs chlorthalidone 25 mg tablet 25 mg PO DAILY Qty: 90 3RF triamcinolone acetonide 0.1 % cream 1 applic Topical BID PRN (Reason: rash) Qty: 30 2RF Rx Instructions: Apply to rash on breast 0.025% topiramate 25 mg tablet 25 mg PO QHS Qty: 90 3RF lisdexamfetamine [Vyvanse] 40 mg capsule 40 mg PO DAILY MDD 40mg Qty: 28 0RF (DME) Dexcom G6 Transmitter Device See Rx Instructions .ROUTE .MEDSUPPLY Qty: 1 4RF Rx Instructions: As directed (DME) Dexcom G6 Sensor Device See Rx Instructions .ROUTE .MEDSUPPLY Qty: 3 12RF Rx Instructions: As directed insulin aspart U-100 [Novolog FlexPen U-100 Insulin] 100 unit/mL (3 mL) insulin pen See Rx Instructions Sub-Q TID Qty: 15 3RF Hold Instructions: Changed by Provider Dose Instruction: Units determined by FS and carb intake Sub-Q TID; E11.65 Patient Comments: pt doesnt remember how many units Rx Instructions: Units determined by FS and carb intake Sub-Q TID; E11.65 atorvastatin 80 mg tablet 80 mg PO QHS Hold Instructions: Home Medication placed on hold at Doctor's office Ozempic 0.25 mg or 0.5 mg (2 mg/3 mL) pen injector 0.25 mg subcut QWEEK insulin degludec [Tresiba FlexTouch U-200] 200 unit/mL (3 mL) insulin pen 70 unit subcut DAILY Hold Instructions: Home Medication placed on hold at Doctor's office Rx Instructions: As directed levothyroxine 150 mcg tablet 137 mcg PO DAILY fluoxetine 20 mg capsule 20 mg PO DAILY Qty: 90 3RF Rx Instructions: administer with 40 mg for total dose on 60 mg daily (DME) Dexcom G6 Executive Secretary Misc See Rx Instructions .ROUTE .MEDSUPPLY Qty: 1 0RF Rx Instructions: As directed glucose [Dex4 Glucose] 4 gram tablet,chewable 4 g PO Q15M PRN (Reason: hypoglycemia) Qty: 7 2RF Rx Instructions: until response levocetirizine [Xyzal] 5 mg tablet 5 mg PO PRN Qty: 30 3RF Hold Instructions: Home Medication placed on hold at Doctor's office (DME) pen needle, diabetic [Pen Needle] 31 gauge x 5/16 needle 1 ea Miscellaneous QID Qty: 400 3RF Rx Instructions: Dx E11.65 Pt using long- acting and mealtime insulin. sumatriptan succinate [Imitrex] 50 mg tablet 50 mg PO PRN MDD 200mg Qty: 30 3RF Rx Instructions: GlucaGen HypoKit 1 mg recon soln 1 mg subcut Q20M PRN (Reason: hypoglycemia) Qty: 1 0RF Rx Instructions: until target blood sugar attained mupirocin 2 % ointment 1 applic TP BID Qty: 44 3RF magnesium oxide 400 mg magnesium capsule 400 mg PO DAILY Qty: 90 3RF valacyclovir 1 gram tablet 1,000 mg PO BID PRN (Reason: Herpes outbreak) Qty: 30 1RF Rx Instructions: Take 1 tab two times per day for 3 days PRN loratadine 10 mg tablet 10 mg PO DAILY Qty: 90 3RF pantoprazole 40 mg tablet,delayed release (DR/EC) 40 mg PO DAILY Qty: 90 3RF ammonium lactate 12 % cream 1 applic topical PRN Qty: 385 1RF Rx Instructions: Apply to itchy skin externally as needed acetaminophen 500 mg tablet 1,000 mg PO TID Qty: 90 0RF ibuprofen 600 mg tablet 600 mg PO TID PRN (Reason: pain) Qty: 90 0RF ondansetron 4 mg tablet,disintegrating 4 mg PO Q8H PRN (Reason: nausea and vomiting) Qty: 30 0RF Discharge Instructions Instructions: Diabetic Retinopathy (ED), Ocular Migraine (ED) Additional Instructions: You were seen in the emergency department for your acute on chronic eye problems. My suspicion is that you may have ocular migraine or worsening diabetic retinopathy but there are other things like central retinal vein occlusion that could be on the differential. I spoke with your ophtho surgeon's service with Dr. Moya who is happy to see you if you feel you need to be seen tomorrow in clinic at 8 AM, you may also call there between 8 and 830 if you cannot make this early appointment. There was no evidence of retinal detachment on ultrasound today, I do not suspect you are having any acute emergent eye problem at this time but please return to the hospital with ophthalmology coverage urgently for any loss of vision or severe symptoms presenting between now and your appointment on Tuesday. Referrals: [facility] [Outside] (Retinal Surgery Offices) Yadira Ngo NP [Primary Care Provider] - Discharge Data Discharge Date/Time-TO BE ENTERED AT DEPARTURE: 05/19/23 19:21 HPI <JESUS ALBERTO Sinclair - Last Filed: 05/19/23 20:56> General Date/Time Provider Initiated Documentation: 05/19/23 17:12. HPI Narrative: 48 year-old female presents to ED today by POV/ambulating with a chief complaint of eye problems, having intermittent dimming of vision, followed by brightness for 7-8 months, occasional retrooccular headache, and the past 2 days has been having a brief intermittent nickel sized patch of blurred vision in L eye. Quality described as only mildly painful with retrooccular headache, occasional vertigo which has been chronic, denies severe eye pain, color changes, pulsatile tinnitus, total loss of vision to either eye, fever, discharge from eyes. Severity is described as 5/10. Palliating factors include nothing specific attempted. Provoking factors include nothing specific. Events leading up to the incident/Associated Symptoms: Patient does have HTN and uncontrolled t2DM, is followed by [facility] Ophthalmology. Patient not anticoagulated. Related Data Home Medications Medication Instructions Recorded Confirmed blood-glucose meter,continuous #1 ea 06/16/20 05/19/23 (Dexcom G6 Executive Secretary) glucose 4 gram chewable tablet 4 g PO Q15M PRN hypoglycemia #7 06/16/20 05/19/23 (Dex4 Glucose) tabs levocetirizine 5 mg tablet (Xyzal) 5 mg PO PRN #30 tab-caps 06/16/20 05/19/23 pen needle, diabetic 31 gauge x #400 ea 06/16/20 05/19/23/16 (Pen Needle) sumatriptan succinate 50 mg tablet 50 mg PO PRN #30 tab-caps 06/16/20 05/19/23 (Imitrex) glucagon (human recombinant) 1 mg 1 mg subcut Q20M PRN hypoglycemia 06/17/20 05/19/23 solution for injection (GlucaGen #1 ea HypoKit) magnesium oxide 400 mg PO DAILY #90 caps 04/27/22 05/19/23 mupirocin 2 % topical ointment 1 applic topical BID skin lesions 04/27/22 05/19/23 #44 grams valacyclovir 1 gram tablet 1,000 mg PO BID PRN Herpes 04/28/22 05/19/23 outbreak #30 tabs fluticasone propionate 50 1 spray intranasal BID PRN 04/29/22 05/19/23 mcg/actuation nasal spray,suspension psyllium husk (aspartame) 3.4 3 g PO BID 90 days #660 grams 05/20/22 05/19/23 gram/5.8 gram oral powder (Metamucil Sugar-Free (aspartame)) fluoxetine 40 mg capsule 40 mg PO DAILY depression #90 caps 05/24/22 05/19/23 nystatin 100,000 unit/gram topical 1 applic topical TID PRN rash #60 06/17/22 05/19/23 powder grams ammonium lactate 12 % topical cream 1 applic topical PRN pruritis #385 06/24/22 05/19/23 grams loratadine 10 mg tablet 10 mg PO DAILY #90 tab-caps 06/24/22 05/19/23 pantoprazole 40 mg tablet,delayed 40 mg PO DAILY #90 tab-caps 06/24/22 05/19/23 release lisinopril 10 mg tablet 10 mg PO DAILY #90 tabs 02/03/23 05/19/23 acetaminophen 500 mg tablet 1,000 mg (2 x 500 mg) PO TID #90 02/16/23 05/19/23 tabs ibuprofen 600 mg tablet 600 mg PO TID PRN pain #90 tabs 02/16/23 05/19/23 naproxen 500 mg tablet 500 mg PO DAILY 02/17/23 05/19/23 norethindrone acetate 5 mg tablet 5 mg PO DAILY 02/17/23 05/19/23 lisdexamfetamine 40 mg capsule 40 mg PO DAILY #28 caps 04/05/23 05/19/23 (Vyvanse) chlorthalidone 25 mg tablet 25 mg PO DAILY #90 tabs 05/05/23 05/19/23 topiramate 25 mg tablet 25 mg PO QHS #90 tabs 05/05/23 05/19/23 triamcinolone acetonide 0.1 % 1 applic topical BID PRN rash #30 05/05/23 05/19/23 topical cream grams atorvastatin 80 mg tablet 80 mg PO QHS 05/12/23 05/19/23 blood-glucose sensor (Dexcom G6 #3 ea 05/12/23 05/19/23 Sensor device) blood-glucose transmitter (Dexcom #1 ea 05/12/23 05/19/23 G6 Transmitter device) insulin aspart U-100 100 unit/mL See Rx Instructions subcut TID 05/12/23 05/19/23 (3 mL) subcutaneous pen (Novolog E11.65, TID, 12-20units depending FlexPen U-100 Insulin aspart) on FS & carbs #15 mL semaglutide 0.25 mg or 0.5 mg (2 0.25 mg subcut QWEEK 05/12/23 05/19/23 mg/3 mL) subcutaneous pen injector (Ozempic) ondansetron 4 mg disintegrating 4 mg PO Q8H PRN nausea and 05/17/23 05/19/23 tablet vomiting #30 tabs fluoxetine 20 mg capsule 20 mg PO DAILY #90 caps 05/19/23 05/19/23 insulin degludec 200 unit/mL (3 70 unit subcut DAILY Diabetes 05/19/23 05/19/23 mL) subcutaneous pen (Tresiba Mellitus FlexTouch U-200 insulin) levothyroxine 150 mcg tablet 137 mcg PO DAILY 05/19/23 05/19/23 Previous Rx's Medication Instructions Recorded blood-glucose meter,continuous #1 ea 06/16/20 (Dexcom G6 Executive Secretary) glucose 4 gram chewable tablet 4 g PO Q15M PRN hypoglycemia #7 06/16/20 (Dex4 Glucose) tabs levocetirizine 5 mg tablet (Xyzal) 5 mg PO PRN #30 tab-caps 06/16/20 pen needle, diabetic 31 gauge x #400 ea 06/16/20 5/ (Pen Needle) sumatriptan succinate 50 mg tablet 50 mg PO PRN #30 tab-caps 06/16/20 (Imitrex) glucagon (human recombinant) 1 mg 1 mg subcut Q20M PRN hypoglycemia 06/17/20 solution for injection (GlucaGen #1 ea HypoKit) magnesium oxide 400 mg PO DAILY #90 caps 04/27/22 mupirocin 2 % topical ointment 1 applic topical BID skin lesions 04/27/22 #44 grams valacyclovir 1 gram tablet 1,000 mg PO BID PRN Herpes 04/28/22 outbreak #30 tabs psyllium husk (aspartame) 3.4 3 g PO BID 90 days #660 grams 05/20/22 gram/5.8 gram oral powder (Metamucil Sugar-Free (aspartame)) fluoxetine 40 mg capsule 40 mg PO DAILY depression #90 caps 05/24/22 nystatin 100,000 unit/gram topical 1 applic topical TID PRN rash #60 06/17/22 powder grams ammonium lactate 12 % topical cream 1 applic topical PRN pruritis #385 06/24/22 grams loratadine 10 mg tablet 10 mg PO DAILY #90 tab-caps 06/24/22 pantoprazole 40 mg tablet,delayed 40 mg PO DAILY #90 tab-caps 06/24/22 release lisinopril 10 mg tablet 10 mg PO DAILY #90 tabs 02/03/23 acetaminophen 500 mg tablet 1,000 mg (2 x 500 mg) PO TID #90 02/16/23 tabs ibuprofen 600 mg tablet 600 mg PO TID PRN pain #90 tabs 02/16/23 lisdexamfetamine 40 mg capsule 40 mg PO DAILY #28 caps 04/05/23 (Vyvanse) chlorthalidone 25 mg tablet 25 mg PO DAILY #90 tabs 02/29/24 topiramate 25 mg tablet 25 mg PO QHS #90 tabs 05/05/23 triamcinolone acetonide 0.1 % 1 applic topical BID PRN rash #30 05/05/23 topical cream grams blood-glucose sensor (Dexcom G6 #3 ea 05/12/23 Sensor device) blood-glucose transmitter (Dexcom #1 ea 05/12/23 G6 Transmitter device) insulin aspart U-100 100 unit/mL See Rx Instructions subcut TID 05/12/23 (3 mL) subcutaneous pen (Novolog E11.65, TID, 12-20units depending FlexPen U-100 Insulin aspart) on FS & carbs #15 mL ondansetron 4 mg disintegrating 4 mg PO Q8H PRN nausea and 05/17/23 tablet vomiting #30 tabs fluoxetine 20 mg capsule 20 mg PO DAILY #90 caps 05/19/23 Allergies Allergy/AdvReac Type Severity Reaction Status Date / Time Sulfa (Sulfonamide Allergy Severe Anaphylaxsi Verified 05/19/23 17:18 Antibiotics) s latex Allergy Intermediate Hives Verified 05/19/23 17:18 fentanyl AdvReac Intermediate went Verified 05/19/23 17:18 outside of her body, felt uncomfortable zolpidem tartrate AdvReac Mild sleep walks Verified 05/19/23 17:18 [From Ambien] Dust, cat dander Allergy Intermediate Hives Uncoded 05/19/23 17:18 Environmental Allergies Allergy Intermediate Rash Uncoded 05/19/23 17:18 General Stated Complaint: EyeProblem RODNEY: 3 Review of Systems <JESUS ALBERTO Sinclair - Last Filed: 05/19/23 20:56> All systems reviewed & are unremarkable except as noted in HPI and below Exam <JESUS ALBERTO Sinclair - Last Filed: 05/19/23 20:56> Narrative Exam Narrative: GENERAL APPEARANCE: Well-nourished, non-toxic, awake and alert, atraumatic, no acute distress. SKIN: Warm, pink, dry, intact, without rashes/lesions/ulcerations. HEAD: Normocephalic, atraumatic, normal hair distribution for gender/age. EYES: Pupils PERRLA, EOMs intact without nystagmus, vision grossly intact, visual donald grossly intact, normal conjunctiva, no exudates on lids/lashes. Funduscopic: no cotton-wool spots, no AV knicking, no blood and thunder appearance, well defined cup:disk bilaterally No hardness of eye to palpation or pain with POCUS exam indicative of increased IOP bilaterally POCUS shows swirling floaters in vitreous humor without significant hemorrhage or retinal detachment bilaterally ENT: Nares patent, no circumoral cyanosis, no facial swelling NECK: Supple, trachea midline, painless cervical ROM. LUNGS/CHEST: Lungs CTA bilaterally, non-labored respirations, normal A/P diameter, symmetrical expansion, no chest wall deformity HEART (CV/PV): Regular rate and rhythm without murmur, no peripheral edema, no JVD. ABDOMEN: Soft, non-distended, no guarding. MSK: Normal ROM, no swelling/deformity to bilateral UEs or LEs, moving all extremities without weakness, no cyanosis, spine midline without tenderness, normal curvature. NEURO: Mental Status AAOx4 - alert to person, place, time, events No facial droop, no forehead involvement. Motor: No focal weakness - strength 5/5 in bilateral UEs and LEs, proximal and distal, symmetric. Sensory: sensation intact to light touch globally. Gait normal: patient ambulated without ataxia into ED room. PSYCH: euthymic, cooperative, pleasant, appropriate speech Course <JESUS ALBERTO Sinclair - Last Filed: 05/19/23 20:56> Vital Signs Vital signs: Vital Signs Temperature 36.5 C 05/19/23 17:11 Pulse 82 05/19/23 17:11 Respiratory Rate 16 05/19/23 17:11 Blood Pressure 104/57 L 05/19/23 17:11 Pulse Oximetry 99 05/19/23 17:11 Temperature 36.5 C 05/19/23 17:11 Temperature Source Temporal Artery Scan 05/19/23 17:11 Pulse 82 05/19/23 17:11 Respiratory Rate 16 05/19/23 17:11 Respiratory Effort Normal, Non-Labored 05/19/23 17:14 Blood Pressure 104/57 L 05/19/23 17:11 Blood Pressure Position Sitting 05/19/23 17:11 Pulse Oximetry 99 05/19/23 17:11 Oxygen Delivery Method Room Air 05/19/23 17:11 Oxygen Flow Rate 0 05/19/23 17:11 Pain Level 2 05/19/23 17:11 Medical Decision Making <JESUS ALBERTO Sinclair - Last Filed: 05/19/23 20:56> This dictation utilizes [id number] dictation software and may contain unedited grammatical errors. 48 y/o F presents to ED today with a chief complaint of 7-8 months of ongoing mild vertigo/dizziness, retrooccular headache in the setting of migraine, ongoing dimming and brightening of vision without visual loss, and onset yesterday of a blurred spot that comes and goes in the L central vision. Patient is followed by retinal surgeon at [facility] Dr. Barksdale, has appointment Tuesday. Patients' medical history: Uncontrolled T2DM, diabetic retinopathy, hypertension, migraine headache, peripheral polyneuropathy. Family and social history: [ ]. Pertinent exam findings / vital signs include no cotton-wool spots, no blood & thunder appearance of L retina, cup:disk ratio crisp, vision grossly intact, visual donald intact, some floaters in vitreous bilaterally, neuro intact. Differential / pathologies of concern include CRVO/BRVO, Retinal Detachment, Vitreous Hemorrhage, Optic Neuritis. Diagnostic studies of: -POCUS Exam, performed by Dr. Russell - see his note. Interventions of: -Consulted with Pt's [facility] Retinal Surgery service. ED Course/Assessment/Plan: 48-year-old female presents with acute on chronic vision problems, is well-known to [facility] retinal surgery practice, has follow-up care arranged for Tuesday. Has mostly painless central spot of blurred vision that is intermittent and comes and goes, no severe eye pain do not suspect optic neuritis or CRAO or acute angle glaucoma, the differential includes CR or BRVO, retinal detachment or vitreous hemorrhage, did not see significant hemorrhage or detachment on POCUS exam and relayed this to on-call [facility] retinal surgery attending. He was happy to see them in clinic tomorrow but states it is also okay for them to follow-up with regularly planned follow-up on Tuesday with strict return to ED with ophthalmology capability for any negative changes. Patient was comfortable with this plan and was discharged home. Patient seen in conjunction with EM Attending Dr. Russell. Findings not consistent with retinal detachment, loss of vision, acute angle glaucoma, severe eye pain, infectious etiology. Disposition of Blurred Vision, Left Eye. Patient verbalized understanding of the plan and return to ED criteria and engaged in shared decision making. Medical Records Medical records reviewed: Yes I reviewed the patient's medical records. Quality:SDOH Health Related Social Needs: No Data to Display PFSH <JESUS ALBERTO Sinclair - Last Filed: 05/19/23 20:56> All Active Problems (Updated 05/19/23 @ 19:08 by JESUS ALBERTO Sinclair) Blurred vision, left eye (Acute) Abdominal pain (Acute) Nausea & vomiting (Acute) Lung nodule (Acute) Elevated LFTs (Acute) Rash and nonspecific skin eruption (Acute) fungal under breast, abd groin Normal colonoscopy (Acute) Family history of colon cancer in father (Acute) Patient was greater than 60 at the time of diagnosis Dysuria (Acute) Post traumatic stress disorder (PTSD) (Acute) Intercostal myalgia (Acute) Left Obesity (BMI 30-39.9) (Acute) Foot ulcer (Acute) Right ankle Diabetic retinopathy (Acute ~01/01/21) 01/01/21 MILD BACKGROUND RETINOPATHY-DR. JENNIFER BARNEY (attention deficit disorder) (Acute) Atypical pigmented skin lesion (Acute) Fatigue (Acute) Skin lesion of scalp (Acute) 05/2020 - [place] [facility] [place] - Recurrent Primary osteoarthritis of both knees (Acute) RIGHT knee steroid injection (40mg): 11/15/2022 Synvisc injections bilaterally: 06/22/2019 Sleep apnea (Chronic 05/28/12) Unspecified mental or behavioral problem (Acute) Periodic non-compliance with treatment program. 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 Genital herpes HSV-1 primary outbreak. Surgical History Trigger finger, right ring finger S/P Release: 02/16/2023 Carpal tunnel syndrome, right S/P ECTR: 02/16/2023 History of colonoscopy (~05/10/22) History of bladder surgery History of section History of gynecological procedure Status post cholecystectomy Status post craniofacial reconstruction section 1999 & 2010 Endometrial Biopsy 12/24/13-[facility] Tooth extraction 11/18- EXTRACTION Cholecystectomy (~2005) CRANIO/MAXILLAFACIAL SURGERY (~2007) Pt. states she doesnt remember Bladder Surgery (~2002) Family History Mother No problems noted. Father Alcohol abuse Prostate cancer Sister No problems noted. Brother Stroke x2 (five years apart) Maternal Grandfather Essential hypertension Heart disease Hyperlipidemia Paternal Grandfather , AGE 57 Myocardial infarction Brain tumor Maternal Grandmother , AGE 85 Essential hypertension Paternal Grandmother , AGE 85 Personal history of malignant neoplasm COLON MATERNAL AUNT Essential hypertension Cancer MATERNAL UNCLE Essential hypertension Social History Smoking/Tobacco Use Status: Former Tobacco Use tobacco type: cigarettes Quit Date: 03/07/14 Pack-years: 10 Second Hand Exposure: Yes Smoking risk assessment performed?: Yes Alcohol Intake: former Drug use: Never Substance use type: former substance user Caregiver/Support person: No Household members: children and other Details: 2 Housing: apartment Number of Children: 4 Do you need help understanding health information?: Always 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 Pets and animals: Yes Pets and animals: cat(s) and dog(s) Sexually active: No Do you think of yourself as: straight/heterosexual Current gender identity: female What is your relationship status?: never How often do you talk on the phone with friends or family?: three or more times per week How often do you get together with friends or relatives?: three or more times per week How often do you attend anglican or hoahaoism services?: 4 or more times per year Do you belong to any clubs or organized social groups?: no Panel score (0-1 are the most socially isolated patients): 2 What type of physical activity do you participate in: walking and swimming Duration: 15-30 minutes/day Frequency: 3-4 times per week Jailyn/Mandaen: [employer] Special jailyn needs: No (SINGING) Seatbelt use: sometimes Helmet use: No 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 PERTINENT FINDINGS/IMPRESSION OF THE RIGHT EYE: No apparent abnomalities and Left eye INDICATION FOR LEFT EYE EXAM: Decreased vision. VISUALIZED STRUCTURES: Left optic nerve and Left lens PERTINTINENT FINDINGS/IMPRESSION OF THE LEFT EYE: Abnormal Vitreous: DIFFERENTIAL DIAGNOSES: Minimal spiculated swirlling of the vitreous. No evidence of retinal detachment. Optic nerve normal diameter. Exam complete
[2023-05-19 19:20] VITALS: PULSE 67; RESP 16; TEMP 36.4; O2SAT 99
== END 2023-05-19 19:21 | disposition home or self-care (01) ==
PROVIDERS: Emergency Provider Physician Assistant; PCP Nurse Practitioner Family
DX: H53.8 Other visual disturbances; I10 Essential (primary) hypertension; E03.9 Hypothyroidism, unspecified; E11.649 Type 2 diabetes mellitus with hypoglycemia without coma; Z79.4 Long term (current) use of insulin; Z79.84 Long term (current) use of oral hypoglycemic drugs; Z79.899 Other long term (current) drug therapy; H43.89 Other disorders of vitreous body; Z88.2 Allergy status to sulfonamides; Z91.040 Latex allergy status; Z88.8 Allergy status to other drugs, medicaments and biological substances; Z91.09 Other allergy status, other than to drugs and biological substances; E11.319 Type 2 diabetes mellitus with unspecified diabetic retinopathy without macular edema
CPT/HCPCS: 76512; 99284

== ENCOUNTER → 2023-05-20 01:46 | Outpatient (CLI) | payer MEDICAID, SELFPAY ==
--- NOTE | 2023-05-20 06:52 | DI.US_ITS ---
Exam(s) US ABDOMEN EXAM: US ABDOMEN CLINICAL HISTORY: elevated lfts,R79.89 TECHNIQUE: Ultrasound abdomen performed using standard protocol. COMPARISON: CT ABD PELVIS WITH CONTRAST from 09/28/[address] ABDOMEN PELVIS WO from 07/27/[address] ABDOMEN PELVIS W from 05/17/2023 FINDINGS: LIVER: Normal size and echogenicity. 10 millimeter calcification noted near diaphragm. 1.6 centimet er maximal dimension hyperechoic lesion superior right lobe is consistent with a hemangioma. GALLBLADDER: Status post cholecystectomy. BILIARY SYSTEM: No intrahepatic or extrahepatic biliary ductal dilation. KIDNEYS: Kidneys are symmetric in size. No evidence of renal calculi. No evidence of hydronephrosis. No renal mass or cyst identified. PANCREAS: Normal where visualized. SPLEEN: Not enlarged. ABDOMINAL AORTA AND IVC: Visualized portions normal caliber. ASCITES: None seen. IMPRESSION: Low-density lesion in liver on CT is consistent with a hemangioma by ultrasound. Adjacent benign caterina cification. No follow-up recommended. DATA REPOSITORY:
== END ==
PROVIDERS: PCP Nurse Practitioner Family; Visit Provider Nurse Practitioner Family
DX: R79.89 Other specified abnormal findings of blood chemistry (principal)
CPT/HCPCS: 76700

== ENCOUNTER 2023-05-23 17:08 | Emergency (ER) | payer MEDICAID, SELFPAY ==
[2023-05-23 17:18] VITALS: BP 92/58; PULSE 88; RESP 16; TEMP 37.2; O2SAT 98
[2023-05-23 17:35] VITALS: RESP 14
--- NOTE | 2023-05-23 17:45 | RT.EKG_ITS ---
APPROVED REPORT Exam: Resting ECG Reason for Exam: hypotension Patient Location: E HR:81 bpm ECG Measurements Heart Rate 81 AXIS DE 195 P 39 QRSd 105 QRS 11 QT 378 T -11 QTc 438 Conclusion Sinus rhythm 81 normal axis no stemi
[2023-05-23 18:07] LABS: BE (Venous) -2 mmol/L (-2-3); HCO3 (Venous) 24 mmol/L (23-28); O2 Sat (Venous) 45 %; TCO2 (Venous) 22 mmol/L (24-29); pCO2 (Venous) 46 mmHg (41-51); pH (Venous) 7.33 (7.31-7.41); pO2 (Venous) 24 mmHg
[2023-05-23 18:08] LABS: Abs Immature Grans 0.03 10^3/uL (0.0-0.06); Absolute Basophil Count 0.03 10^3/uL (0.0-0.2); Absolute Eosinophil Count 0.23 10^3/uL (0.0-0.7); Absolute Lymphocyte Count 3.01 10^3/uL (1.2-3.4); Absolute Monocyte Count 0.62 10^3/uL (0.1-0.8); Absolute Neutrophil Count 5.63 10^3/uL (1.2-6.7); Basophils % 0.3; Eosinophils % 2.4; HCT 38.4 % (36.0-46.0); HGB 12.5 g/dL (11.2-15.7); Immature Grans % 0.3; Lymphocytes % 31.5; MCH 28.4 pg (27.0-33.0); MCHC 32.6 % (32.0-36.0); MCV 87 fL (80-95); MPV 11.3 fL (8.0-11.0); Monocytes % 6.5; Platelet Count 311 10^3/uL (130-400); RDW 13.2 % (11.7-14.6); WBC 9.55 10^3/uL (4.4-10.8)
[2023-05-23] MEDS: Lactated Ringers 1,000 ML 1000 ML IV (18:10)
--- NOTE | 2023-05-23 18:22 | ED.GENADUL_ITS ---
Discharge Plan Disposition Patient Disposition: Home Condition: Stable Discharge Details Clinical Impression: UTI (urinary tract infection), Orthostatic hypotension Primary Care Provider: Yadira Ngo ED Provider: Aliya Walker Home Meds and New Rx's Prescriptions: New cephalexin 500 mg capsule 500 mg PO BID 7 Days Qty: 14 0RF Discontinued chlorthalidone 25 mg tablet 25 mg PO DAILY Qty: 90 3RF No Action fluoxetine 40 mg capsule 40 mg PO DAILY Qty: 90 4RF nystatin 100,000 unit/gram powder 1 applic Topical TID PRN (Reason: rash) Qty: 60 3RF Rx Instructions: Apply to groin rash three times per day in between steroid cream applications. lisinopril 10 mg tablet 10 mg PO DAILY Qty: 90 3RF fluticasone propionate 50 mcg/actuation spray,suspension 1 spray intranasal BID PRN Rx Instructions: administer into each nostril Metamucil Sugar-Free (aspart) 3.4 gram/5.8 gram powder 3 g PO BID 90 Days Qty: 660 1RF norethindrone acetate 5 mg tablet 5 mg PO DAILY naproxen 500 mg tablet 500 mg PO DAILY Patient Comments: take two 500mg at hs triamcinolone acetonide 0.1 % cream 1 applic Topical BID PRN (Reason: rash) Qty: 30 2RF Rx Instructions: Apply to rash on breast 0.025% topiramate 25 mg tablet 25 mg PO QHS Qty: 90 3RF lisdexamfetamine [Vyvanse] 40 mg capsule 40 mg PO DAILY MDD 40mg Qty: 28 0RF (DME) Dexcom G6 Transmitter Device See Rx Instructions .ROUTE .MEDSUPPLY Qty: 1 4RF Rx Instructions: As directed (DME) Dexcom G6 Sensor Device See Rx Instructions .ROUTE .MEDSUPPLY Qty: 3 12RF Rx Instructions: As directed insulin aspart U-100 [Novolog FlexPen U-100 Insulin] 100 unit/mL (3 mL) insulin pen See Rx Instructions Sub-Q TID Qty: 15 3RF Hold Instructions: Changed by Provider Dose Instruction: Units determined by FS and carb intake Sub-Q TID; E11.65 Patient Comments: pt doesnt remember how many units Rx Instructions: Units determined by FS and carb intake Sub-Q TID; E11.65 atorvastatin 80 mg tablet 40 mg PO QHS Hold Instructions: Home Medication placed on hold at Doctor's office Ozempic 0.25 mg or 0.5 mg (2 mg/3 mL) pen injector 0.25 mg subcut QWEEK insulin degludec [Tresiba FlexTouch U-200] 200 unit/mL (3 mL) insulin pen 70 unit subcut DAILY Hold Instructions: Home Medication placed on hold at Doctor's office Rx Instructions: As directed levothyroxine 150 mcg tablet 137 mcg PO DAILY (DME) Dexcom G6 Vocational Counselor Misc See Rx Instructions .ROUTE .MEDSUPPLY Qty: 1 0RF Rx Instructions: As directed glucose [Dex4 Glucose] 4 gram tablet,chewable 4 g PO Q15M PRN (Reason: hypoglycemia) Qty: 7 2RF Rx Instructions: until response levocetirizine [Xyzal] 5 mg tablet 5 mg PO PRN Qty: 30 3RF Hold Instructions: Home Medication placed on hold at Doctor's office (DME) pen needle, diabetic [Pen Needle] 31 gauge x 5/16 needle 1 ea Miscellaneous QID Qty: 400 3RF Rx Instructions: Dx E11.65 Pt using long- acting and mealtime insulin. sumatriptan succinate [Imitrex] 50 mg tablet 50 mg PO PRN MDD 200mg Qty: 30 3RF Rx Instructions: GlucaGen HypoKit 1 mg recon soln 1 mg subcut Q20M PRN (Reason: hypoglycemia) Qty: 1 0RF Rx Instructions: until target blood sugar attained mupirocin 2 % ointment 1 applic TP BID Qty: 44 3RF magnesium oxide 400 mg magnesium capsule 400 mg PO DAILY Qty: 90 3RF valacyclovir 1 gram tablet 1,000 mg PO BID PRN (Reason: Herpes outbreak) Qty: 30 1RF Rx Instructions: Take 1 tab two times per day for 3 days PRN loratadine 10 mg tablet 10 mg PO DAILY Qty: 90 3RF pantoprazole 40 mg tablet,delayed release (DR/EC) 40 mg PO DAILY Qty: 90 3RF ammonium lactate 12 % cream 1 applic topical PRN Qty: 385 1RF Rx Instructions: Apply to itchy skin externally as needed fluoxetine 20 mg capsule 40 mg PO DAILY Rx Instructions: administer with 40 mg for total dose on 60 mg daily acetaminophen 500 mg tablet 1,000 mg PO TID Qty: 90 0RF ibuprofen 600 mg tablet 600 mg PO TID PRN (Reason: pain) Qty: 90 0RF ondansetron 4 mg tablet,disintegrating 4 mg PO Q8H PRN (Reason: nausea and vomiting) Qty: 30 0RF Discharge Instructions Instructions: Urinary Tract Infection in Women (ED) Additional Instructions: Stop your chlorthalidone Take the antibiotic as prescribed At least eight 8 ounce glasses of water daily, have your creatinine rechecked by your doctor next week Return earlier should you have new or worsening complaints Referrals: Yadira Ngo NP [Primary Care Provider] - 1 day Discharge Data Discharge Date/Time-TO BE ENTERED AT DEPARTURE: 05/23/23 20:06 HPI General Date/Time Provider Initiated Documentation: 05/23/23 17:37 . HPI Narrative: This 48-year-old female presents with a report of weakness dizziness and feeling like she might pass out. She was started on 3 new medications 2 weeks ago which is when her symptoms began, chlorthalidone, trazodone, and Ozempic. She states she has not been drinking as much as the Ozempic makes her nauseous. She denies any chest pain. She denies any shortness of breath or chance of . She has not fainted or abrasion. She denies any dizziness and has mild headache right now per patient. Related Data Home Medications Medication Instructions Recorded Confirmed blood-glucose meter,continuous #1 ea 06/16/20 05/20/23 (Dexcom G6 Vocational Counselor) glucose 4 gram chewable tablet 4 g PO Q15M PRN hypoglycemia #7 06/16/20 05/23/23 (Dex4 Glucose) tabs levocetirizine 5 mg tablet (Xyzal) 5 mg PO PRN #30 tab-caps 06/16/20 05/23/23 pen needle, diabetic 31 gauge x #400 ea 06/16/20 05/20/23/16 (Pen Needle) sumatriptan succinate 50 mg tablet 50 mg PO PRN #30 tab-caps 06/16/20 05/23/23 (Imitrex) glucagon (human recombinant) 1 mg 1 mg subcut Q20M PRN hypoglycemia 06/17/20 05/23/23 solution for injection (GlucaGen #1 ea HypoKit) magnesium oxide 400 mg PO DAILY #90 caps 04/27/22 05/23/23 mupirocin 2 % topical ointment 1 applic topical BID skin lesions 04/27/22 05/23/23 #44 grams valacyclovir 1 gram tablet 1,000 mg PO BID PRN Herpes 04/28/22 05/23/23 outbreak #30 tabs fluticasone propionate 50 1 spray intranasal BID PRN 04/29/22 05/23/23 mcg/actuation nasal spray,suspension psyllium husk (aspartame) 3.4 3 g PO BID 90 days #660 grams 05/20/22 05/23/23 gram/5.8 gram oral powder (Metamucil Sugar-Free (aspartame)) fluoxetine 40 mg capsule 40 mg PO DAILY depression #90 caps 05/24/22 05/23/23 nystatin 100,000 unit/gram topical 1 applic topical TID PRN rash #60 06/17/22 05/23/23 powder grams ammonium lactate 12 % topical cream 1 applic topical PRN pruritis #385 06/24/22 05/23/23 grams loratadine 10 mg tablet 10 mg PO DAILY #90 tab-caps 06/24/22 05/23/23 pantoprazole 40 mg tablet,delayed 40 mg PO DAILY #90 tab-caps 06/24/22 05/23/23 release lisinopril 10 mg tablet 10 mg PO DAILY #90 tabs 02/03/23 05/23/23 acetaminophen 500 mg tablet 1,000 mg (2 x 500 mg) PO TID #90 02/16/23 05/23/23 tabs ibuprofen 600 mg tablet 600 mg PO TID PRN pain #90 tabs 02/16/23 05/23/23 naproxen 500 mg tablet 500 mg PO DAILY 02/17/23 05/23/23 norethindrone acetate 5 mg tablet 5 mg PO DAILY 02/17/23 05/23/23 lisdexamfetamine 40 mg capsule 40 mg PO DAILY #28 caps 04/05/23 05/23/23 (Vyvanse) topiramate 25 mg tablet 25 mg PO QHS #90 tabs 05/05/23 05/23/23 triamcinolone acetonide 0.1 % 1 applic topical BID PRN rash #30 05/05/23 05/23/23 topical cream grams atorvastatin 80 mg tablet 40 mg PO QHS 05/12/23 05/23/23 blood-glucose sensor (Dexcom G6 #3 ea 05/12/23 05/20/23 Sensor device) blood-glucose transmitter (Dexcom #1 ea 05/12/23 05/20/23 G6 Transmitter device) insulin aspart U-100 100 unit/mL See Rx Instructions subcut TID 05/12/23 05/23/23 (3 mL) subcutaneous pen (Novolog E11.65, TID, 12-20units depending FlexPen U-100 Insulin aspart) on FS & carbs #15 mL semaglutide 0.25 mg or 0.5 mg (2 0.25 mg subcut QWEEK 05/12/23 05/23/23 mg/3 mL) subcutaneous pen injector (Ozempic) ondansetron 4 mg disintegrating 4 mg PO Q8H PRN nausea and 05/17/23 05/23/23 tablet vomiting #30 tabs insulin degludec 200 unit/mL (3 70 unit subcut DAILY Diabetes 05/19/23 05/23/23 mL) subcutaneous pen (Tresiba Mellitus FlexTouch U-200 insulin) levothyroxine 150 mcg tablet 137 mcg PO DAILY 05/19/23 05/23/23 cephalexin 500 mg capsule 500 mg PO BID 7 days #14 caps 05/23/23 fluoxetine 20 mg capsule 40 mg PO DAILY 05/23/23 05/23/23 Previous Rx's Medication Instructions Recorded blood-glucose meter,continuous #1 ea 06/16/20 (Dexcom G6 Vocational Counselor) glucose 4 gram chewable tablet 4 g PO Q15M PRN hypoglycemia #7 06/16/20 (Dex4 Glucose) tabs levocetirizine 5 mg tablet (Xyzal) 5 mg PO PRN #30 tab-caps 06/16/20 pen needle, diabetic 31 gauge x #400 ea 06/16/20/16 (Pen Needle) sumatriptan succinate 50 mg tablet 50 mg PO PRN #30 tab-caps 06/16/20 (Imitrex) glucagon (human recombinant) 1 mg 1 mg subcut Q20M PRN hypoglycemia 06/17/20 solution for injection (GlucaGen #1 ea HypoKit) magnesium oxide 400 mg PO DAILY #90 caps 04/27/22 mupirocin 2 % topical ointment 1 applic topical BID skin lesions 04/27/22 #44 grams valacyclovir 1 gram tablet 1,000 mg PO BID PRN Herpes 04/28/22 outbreak #30 tabs psyllium husk (aspartame) 3.4 3 g PO BID 90 days #660 grams 05/20/22 gram/5.8 gram oral powder (Metamucil Sugar-Free (aspartame)) fluoxetine 40 mg capsule 40 mg PO DAILY depression #90 caps 05/24/22 nystatin 100,000 unit/gram topical 1 applic topical TID PRN rash #60 06/17/22 powder grams ammonium lactate 12 % topical cream 1 applic topical PRN pruritis #385 06/24/22 grams loratadine 10 mg tablet 10 mg PO DAILY #90 tab-caps 06/24/22 pantoprazole 40 mg tablet,delayed 40 mg PO DAILY #90 tab-caps 06/24/22 release lisinopril 10 mg tablet 10 mg PO DAILY #90 tabs 02/03/23 acetaminophen 500 mg tablet 1,000 mg (2 x 500 mg) PO TID #90 02/16/23 tabs ibuprofen 600 mg tablet 600 mg PO TID PRN pain #90 tabs 02/16/23 lisdexamfetamine 40 mg capsule 40 mg PO DAILY #28 caps 04/05/23 (Vyvanse) topiramate 25 mg tablet 25 mg PO QHS #90 tabs 05/05/23 triamcinolone acetonide 0.1 % 1 applic topical BID PRN rash #30 05/05/23 topical cream grams blood-glucose sensor (Dexcom G6 #3 ea 05/12/23 Sensor device) blood-glucose transmitter (Dexcom #1 ea 05/12/23 G6 Transmitter device) insulin aspart U-100 100 unit/mL See Rx Instructions subcut TID 05/12/23 (3 mL) subcutaneous pen (Novolog E11.65, TID, 12-20units depending FlexPen U-100 Insulin aspart) on FS & carbs #15 mL ondansetron 4 mg disintegrating 4 mg PO Q8H PRN nausea and 05/17/23 tablet vomiting #30 tabs cephalexin 500 mg capsule 500 mg PO BID 7 days #14 caps 05/23/23 Allergies Allergy/AdvReac Type Severity Reaction Status Date / Time Sulfa (Sulfonamide Allergy Severe Anaphylaxsi Verified 05/23/23 17:52 Antibiotics) s latex Allergy Intermediate Hives Verified 05/23/23 17:52 fentanyl AdvReac Intermediate went Verified 05/23/23 17:52 outside of her body, felt uncomfortable zolpidem tartrate AdvReac Mild sleep walks Verified 05/23/23 17:52 [From Ambien] Dust, cat dander Allergy Intermediate Hives Uncoded 05/23/23 17:52 Environmental Allergies Allergy Intermediate Rash Uncoded 05/23/23 17:52 General Stated Complaint: Dizzy/Sync RODNEY: 3 Course Vital Signs Vital signs: Vital Signs Temperature 37.2 C 05/23/23 17:18 Pulse 88 05/23/23 17:18 Respiratory Rate 16 05/23/23 17:18 Blood Pressure 92/58 L 05/23/23 17:18 Pulse Oximetry 98 05/23/23 17:18 Temperature 37.2 C 05/23/23 17:18 Pulse 88 05/23/23 17:18 Respiratory Rate 14 05/23/23 17:35 Respiratory Effort Normal, Non-Labored 05/23/23 17:35 Respiratory Depth Normal 05/23/23 17:35 Respiratory Pattern Normal 05/23/23 17:35 Blood Pressure 92/58 L 05/23/23 17:18 Pulse Oximetry 98 05/23/23 17:18 Lab/Test Results Lab/Test Results: Laboratory Tests Range/Units 05/23/23 18:00 WBC (4.4-10.8) 10^3/uL 9.55 RBC (3.93-5.22) 10^6/uL 4.40 Hgb (11.2-15.7) g/dL 12.5 Hct (36.0-46.0) % 38.4 MCV (80-95) fL 87 MCH (27.0-33.0) pg 28.4 MCHC (32.0-36.0) % 32.6 RDW (11.7-14.6) % 13.2 Plt Count (130-400) 10^3/uL 311 MPV (8.0-11.0) fL 11.3 H Immature Gran % 0.3 Neutrophils % 59.0 Lymphocytes % 31.5 Monocytes % 6.5 Eosinophils % 2.4 Basophils % 0.3 Nucleated RBC % (0.0-0.3) % 0.0 Absolute Neutrophils (1.2-6.7) 10^3/uL 5.63 Absolute Lymphocytes (1.2-3.4) 10^3/uL 3.01 Absolute Monocytes (0.1-0.8) 10^3/uL 0.62 Absolute Eosinophils (0.0-0.7) 10^3/uL 0.23 Absolute Basophils (0.0-0.2) 10^3/uL 0.03 VBG pH (7.31-7.41) 7.33 VBG pCO2 (41-51) mmHg 46 VBG pO2 mmHg 24 VBG HCO3 (23-28) mmol/L 24 VBG Total CO2 (24-29) mmol/L 22 L VBG O2 Saturation % 45 VBG Base Excess (-2-3) mmol/L -2 Medical Decision Making 48-year-old female, alert and oriented, no acute distress, markedly orthostatic on assessment, drops for wants only 79 for systolic with an increase in 24 units for her heart rate Symptomatic Diagnostic labs do not show significant acute abnormality aside from creatinine increased to 2.0 from 1.6, her BUN is also elevated likely consistent with dehydration, chlorthalidone has an adverse back as orthostatic hypotension, will discontinue chlorthalidone, will have patient increase your fluids She will need to have blood pressure reassessed by her primary care physician after discontinuation of chlorthalidone Patient will push fluids at home, eight 8 ounce glasses a day She will need her creatinine rechecked by her primary care physician next week On reassessment she is feeling marked improvement, she is no longer orthostatic, she is ambulatory, her headache has resolved after 1 L normal saline, Compazine 5 mg TSH is low, however T4 is Normal limits Also your urine is concerning for urinary tract infection, will initiate antibiotics Patient is alert and oriented x 4, cranial nerves II through intact, ambulatory steady gait, cardiac rate rhythm regular, lungs clear to auscultation bilaterally, no peripheral edema, negative Romberg, pupils equal round reactive to light and accommodation extraocular muscles intact, ambulatory with steady gait. Assessment stable blood pressure at time of discharge home, recheck next week recommended for repeat creatinine and assessment Quality:SDOH Health Related Social Needs: No Data to Display PFSH All Active Problems (Updated 05/23/23 @ 19:39 by JESUS ALBERTO Heller) Orthostatic hypotension (Acute) UTI (urinary tract infection) (Acute) Blurred vision, left eye (Acute) Abdominal pain (Acute) Nausea & vomiting (Acute) Lung nodule (Acute) Elevated LFTs (Acute) Rash and nonspecific skin eruption (Acute) fungal under breast, abd groin Normal colonoscopy (Acute) Family history of colon cancer in father (Acute) Patient was greater than 60 at the time of diagnosis Dysuria (Acute) Post traumatic stress disorder (PTSD) (Acute) Intercostal myalgia (Acute) Left Obesity (BMI 30-39.9) (Acute) Foot ulcer (Acute) Right ankle Diabetic retinopathy (Acute ~01/01/21) 01/01/21 MILD BACKGROUND RETINOPATHY-DR. JENNFIER BARNEY (attention deficit disorder) (Acute) Atypical pigmented skin lesion (Acute) Fatigue (Acute) Skin lesion of scalp (Acute) 05/2020 - Biopsy negative at [facility] [place] 05/2021 - Recurrent Primary osteoarthritis of both knees (Acute) RIGHT knee steroid injection (40mg): 11/15/2022 Synvisc injections bilaterally: 06/22/2019 Sleep apnea (Chronic 05/28/12) Unspecified mental or behavioral problem (Acute) Periodic non-compliance with treatment program. 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 Genital herpes HSV-1 primary outbreak. Surgical History Trigger finger, right ring finger S/P Release: 02/16/2023 Carpal tunnel syndrome, right S/P ECTR: 02/16/2023 History of colonoscopy (~05/10/22) History of bladder surgery History of section History of gynecological procedure Status post cholecystectomy Status post craniofacial reconstruction section 1999 & 2010 Endometrial Biopsy 12/24/13-[facility] Tooth extraction 11/18- EXTRACTION Cholecystectomy (~2005) CRANIO/MAXILLAFACIAL SURGERY (~2007) Pt. states she doesnt remember Bladder Surgery (~2002) Family History Mother No problems noted. Father Alcohol abuse Prostate cancer Sister No problems noted. Brother Stroke x2 (five years apart) Maternal Grandfather Essential hypertension Heart disease Hyperlipidemia Paternal Grandfather , AGE 57 Myocardial infarction Brain tumor Maternal Grandmother , AGE 85 Essential hypertension Paternal Grandmother , AGE 85 Personal history of malignant neoplasm COLON MATERNAL AUNT Essential hypertension Cancer MATERNAL UNCLE Essential hypertension Social History Smoking/Tobacco Use Status: Former Tobacco Use tobacco type: cigarettes Quit Date: 03/07/14 Pack-years: 10 Second Hand Exposure: Yes Smoking risk assessment performed?: Yes Alcohol Intake: former Drug use: Never Substance use type: former substance user Caregiver/Support person: No Household members: children and other Details: 2 Housing: apartment Number of Children: 4 Do you need help understanding health information?: Always 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 Pets and animals: Yes Pets and animals: cat(s) and dog(s) Sexually active: No Do you think of yourself as: straight/heterosexual Current gender identity: female What is your relationship status?: never How often do you talk on the phone with friends or family?: three or more times per week How often do you get together with friends or relatives?: three or more times per week How often do you attend taoist or jainism services?: 4 or more times per year Do you belong to any clubs or organized social groups?: no Panel score (0-1 are the most socially isolated patients): 2 What type of physical activity do you participate in: walking and swimming Duration: 15-30 minutes/day Frequency: 3-4 times per week Jailyn/Jewish: Episcopalian Special jailyn needs: No (SINGING) Seatbelt use: sometimes Helmet use: No Drive intox or ride w/intox 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
[2023-05-23 18:28] LABS: Lipase 64 U/L (16-77)
[2023-05-23 18:32] LABS: ALT 50 U/L (14-59); AST 29 U/L (15-37); Albumin 3.9 g/dL (3.4-5.0); Alkaline Phosphatase 113 U/L (46-116); Anion Gap 12.5 mmol/L (3-11); BUN 43 mg/dL (7-18); Bilirubin, Total 0.7 mg/dL (0.2-1.0); CO2 24.5 mmol/L (21.0-32.0); Calcium 9.4 mg/dL (8.5-10.1); Chloride 105 mmol/L (98-107); Estimated GFR 29.87 (mL/min/1.73m2); Glucose 105 mg/dL (74-106); Magnesium 2.6 mg/dL (1.8-2.4); Potassium 3.7 mmol/L (3.5-5.1); Sodium 142 mmol/L (136-145); Total Protein 8.4 g/dL (6.4-8.2)
[2023-05-23 18:43] LABS: TSH (W/Ref FT4) 0.26 uIU/mL (0.36-3.74)
[2023-05-23 19:00] LABS: FREE T4 1.06 ng/dL (0.76-1.46)
[2023-05-23 19:08] LABS: Bilirubin Negative (Negative); Blood Trace-intact (Negative); Clarity Cloudy (Clear); Glucose Negative (Negative); Ketones Negative (Negative); Leukocyte Esterase Moderate (Negative); Nitrite Positive (Negative); Specific Gravity 1.025 (1.005-1.025); Urobilinogen 0.2 mg/dL (Up to 0.2)
[2023-05-23 19:15] LABS: Bacteria Many HPF (Negative); C & S Indicated? Yes; Casts Negative LPF (Negative); Crystals Negative HPF (Negative); Epithelial Cells Few HPF (Negative); Mucus Negative (Negative); RBC 0-2 HPF (0-2); WBC 20-50 HPF (0-5)
[2023-05-23 19:32] VITALS: BP 124/73; PULSE 82; RESP 14; O2SAT 98
--- NOTE | 2023-05-23 19:34 | NUR.NOTE ---
Orthostatic vitals taken prior to discharge. Pt's BP dropped from 111/60 to 93/63 with no symptoms. Pt stated she felt great. Consulted with provider who has a care plan in place. Pt is to stop taking BP medications that causes orthostatic vitals and start taking antibiotic for UTI. Nursing Note:
[2023-05-23] MEDS: Cephalexin 500 MG CAP, 4 CAPS/BTL PO (20:03)
== END 2023-05-23 20:06 | disposition home or self-care (01) ==
PROVIDERS: Emergency Provider Physician Assistant; PCP Nurse Practitioner Family
DX: N39.0 Urinary tract infection, site not specified (principal); I95.1 Orthostatic hypotension; I10 Essential (primary) hypertension; E11.319 Type 2 diabetes mellitus with unspecified diabetic retinopathy without macular edema; Z79.4 Long term (current) use of insulin; Z87.891 Personal history of nicotine dependence
CPT/HCPCS: 80053; 82805; 83690; 87077; 93005; 96361; 96374; 99284; 81003; 81015; 83735; 84439; 84443; 85025; 87086; 87186; 93010

== ENCOUNTER → 2023-06-10 00:49 | Outpatient (CLI) | payer MEDICAID, SELFPAY ==
--- NOTE | 2023-06-10 06:45 | DI.MRI_ITS ---
Exam(s) MR BRAIN WO/W EXAM: MR BRAIN WO/W CLINICAL HISTORY: headaches,vision changes,pressure behind eyes,dizziness TECHNIQUE: Multiplanar multisequence MRI of the brain was performed. Both noninfused and contrast i nfused sequences were performed. IV Contrast injected was 20 cc Dotarem. COMPARISON: No exams were available for comparison FINDINGS: CEREBRAL PARENCHYMA: No evidence of intracranial hemorrhage, mass effect nor shift of midline structu re. No extraaxial fluid collections. Ventricles are not enlarged nor shifted. There is no significant focal signal abnormality in the cerebellar hemispheres nor within the roney, m idbrain, and thalami. There are few small FLAIR bright white matter signal foci in the left supra ventricular white matter, both measuring 3 mm, not associated with hemorrhage, surrounding edema, enhancement, nor restricted diffusion. No evidence of demyelinating disease. DWI: No areas of restricted diffusion to suggest acute ischemic event. SWI: No microhemorrhages evident. There are no ring enhancing lesions in the brain. There is no abnormal meningeal enhancement. PITUITARY GLAND: No mass nor parasellar abnormality. No obvious abnormality in the cavernous sinuses. FLOW VOIDS: The expected flow void are noted. No evidence of obvious aneurysm nor obvious vascular ma lformation. PARANASAL SINUSES: The visualized paranasal sinuses appear unremarkable. ORBITS: No obvious abnormal findings. IMPRESSION: 1. Minimal nonspecific white matter findings, as described above. 2. No abnormal enhancing intracranial findings. There are no ring enhancing lesions in the brain and there is no abnormal meningeal enhancement. DATA REPOSITORY:
--- NOTE | 2023-06-10 06:45 | DI.CT_ITS ---
Exam(s) CT CHEST WO EXAM: CT CHEST WO CLINICAL HISTORY: new lung nodule,r91.1. TECHNIQUE: Multi planar reconstructions were performed. CONTRAST MATERIAL: None COMPARISON: CT CT CHEST WO from 09/24/[address] scan of 05/17/2023. FINDINGS: CHEST: LUNGS: In the right lung there are multiple small nodules which appear unchanged with the exception o f a 5 millimeter nodule in the posterior basal segment of the right lower lobe which measures 5 mm, i ncreased in size from 09/24/2022 (3 mm measurement at that time). There are no infiltrates nor pleur al effusion on the right side. In the opposite-left lung there is a 10 mm nodule in the lower lobe corresponding to what was describ ed on recent abdominal CT scan. This nodule was not present on chest CT scan of 09/24/2022, therefor e concerning. There is another pleural based nodule in the mid left lung field which has unchanged b enign appearance. There is a small nodule measuring 6-7 mm medially adjacent to the left heart borde r which appears slightly larger than previous. There are no confluent infiltrates and no pleural eff usion on the left side. MEDIASTINUM: No obvious hilar adenopathy. Slightly increased subcarinal lymph nodes are noted, more so than previous. Visualized thyroid unremarkable.No obvious axillary adenopathy CARDIAC: Heart size is normal. There is no pericardial effusion.Caliber of the thoracic aorta is wit hin normal limits. VISUALIZED UPPER ABDOMEN:No obvious adrenal masses. OSSEOUS: No significant osseous lesions.. IMPRESSION: 1. Compared to the chest CT scan of 09/24/2022 there is an new 10 mm noncalcified nodule in the left lower lobe. In the opposite-right lower lobe there is a 5 millimeter nodule which has slightly incre ased in size from the prior CT scan of 09/24/2022, presently measuring 5 mm. In addition, there is a 6 mm nodule adjacent to the left heart border, larger than previous. 2. Recommend close follow-up including PET-CT scan, tissue sampling, or repeat CT scan in 3 months. Correlation with past medical history is recommended Reference: Tai et al; 2017 Fleischner Guidelines RADIATION DOSE DELIVERED: Total DLP DATA REPOSITORY: All CT scans at this facility are submitted to the National Radiology Data Registry (NRDR) Dose Index Registry (DIR) with the [employer] (ACR). RADIATION OPTIMIZATION: All CT scans at this facility use at least one of these dose optimization te chniques: automated exposure control; mA and/or kV adjustment per patient size (includes targeted exa ms where dose is matched to clinical indication); or iterative reconstruction.
[2023-06-10 08:11] LABS: CREATININE 0.9 mg/dL (0.55-1.02); Estimated GFR 77.88 (mL/min/1.73m2)
[2023-06-10] MEDS: Normal Saline Flush 10 ML SYR IVP (08:42)
[2023-06-10] MEDS: Gadoterate meglumine 20 ML VIAL IVP (08:43)
== END ==
PROVIDERS: PCP Nurse Practitioner Family; Visit Provider Nurse Practitioner Family
DX: R91.1 Solitary pulmonary nodule (principal); R91.8 Other nonspecific abnormal finding of lung field; G43.009 Migraine without aura, not intractable, without status migrainosus; H53.8 Other visual disturbances; R90.82 White matter disease, unspecified; Z01.812 Encounter for preprocedural laboratory examination
CPT/HCPCS: 70553; 71250; 82565

== ENCOUNTER 2023-06-21 04:04 | Outpatient (CLI) | payer MEDICAID, SELFPAY ==
[2023-06-21 14:04] LABS: TSH (W/Ref FT4) 0.12 uIU/mL (0.36-3.74)
[2023-06-21 14:28] LABS: FREE T4 1.08 ng/dL (0.76-1.46)
== END 2023-06-21 04:05 | disposition home or self-care (01) ==
PROVIDERS: PCP Nurse Practitioner Family; Visit Provider Nurse Practitioner Family
DX: E03.9 Hypothyroidism, unspecified (principal)
CPT/HCPCS: 36415; 84439; 84443

== ENCOUNTER 2023-06-30 06:06 | Outpatient (CLI) | payer MEDICAID, SELFPAY ==
[2023-06-30] MEDS: Levalbuterol HFA 15 GM INH 4 PUFF IH (14:14)
[2023-06-30] MEDS: Inhaler, Assist Device 1 EACH MC (14:15)
--- NOTE | 2023-07-01 11:16 | W.PFT ---
Date of service: 06/30/23 Time of Service: 13:04 Pulmonary Function Test Result Indications: Lung nodules Interpretation Spirometry: There is no airflow limitation. No bronchodilator response. Lung Volumes: Normal lung volumes Diffusion Capacity: Normal diffusion Airway Pressure: Normal airways resistance Impression Normal pulmonary function testing. Clinical Correlation therefore is recommended.
== END 2023-06-30 06:07 | disposition home or self-care (01) ==
LOC: RT 06:07
PROVIDERS: PCP Nurse Practitioner Family; Visit Provider Physician Assistant Surgical
DX: R91.8 Other nonspecific abnormal finding of lung field (principal)
CPT/HCPCS: 94060; 94726; 94729

== ENCOUNTER → 2023-08-10 01:46 | Outpatient (CLI) | payer MEDICAID, SELFPAY ==
--- NOTE | 2023-08-10 06:45 | DI.MAMMO_ITS ---
Exam(s) MAMMO SCREENING EXAM: MAMMO SCREENING CLINICAL HISTORY: screening, Z12.39 TECHNIQUE: Bilateral full field digital CC and MLO mammographic images were obtained with 3D tomosyn thesis and utilizing computer aided detection (CAD). COMPARISON: Available for comparison. FINDINGS: Masses/Architectural Distortion: There appears to have developed a new 5 mm nodule in the posterior i nferior right breast 16 cm from the nipple. There are no areas of architectural distortion. Microcalcifications: No suspicious pleomorphic-type are seen. Skin Thickening/Nipple Retraction: None. IMPRESSION: 1. New 5 mm nodule in the posterior inferior right breast. 2. Spot compression views requested for further evaluation. Limited right breast ultrasound may be i ndicated at that time. BI-RADS Category 0 - Assessment Incomplete: Need additional imaging evaluation Breast Density - Category B - Scattered areas of fibroglandular density Breast density category C or D implies that the patient has dense breast tissue. Dense breast tissue is very common and is not abnormal but dense breast tissue can make it harder to find cancer on a ma mmogram. Also, dense breast tissue may increase their breast cancer risk. This information about the result of the mammogram report was provided to the patient to raise their awareness. Use this report when you speak with the patient about their risks for breast cancer, which includes their family hist ory. At that time, you may recommend for more screening tests (Ultrasound or MRI) as they might be us eful based on their risk. A negative radiographic report should not delay biopsy if a dominant or clinically suspicious mass is present. Up to ten percent of cancers are not identified on mammography. A negative report may reinforce clinical impression. Adenosis and dense breasts may obscure an underlying neoplasm. False positive reports average 6 to 10%. Patient will receive a letter notifying them of these results.
== END ==
PROVIDERS: PCP Nurse Practitioner Family; Visit Provider Nurse Practitioner Family
DX: Z12.31 Encounter for screening mammogram for malignant neoplasm of breast (principal); R92.8 Other abnormal and inconclusive findings on diagnostic imaging of breast
CPT/HCPCS: 77063; 77067

== ENCOUNTER 2023-08-10 08:42 | Outpatient (CLI) | payer MEDICAID, SELFPAY ==
[2023-08-10 09:47] LABS: BUN 22 mg/dL (7-18); CREATININE 1.4 mg/dL (0.55-1.02); Calculated LDL 60 mg/dL (<100); Chloride 107 mmol/L (98-107); Cholesterol 126 mg/dL (<200); Estimated GFR 45.83 (mL/min/1.73m2); Glucose 157 mg/dL (74-106); HDL Cholesterol 39 mg/dL (40-60); Potassium 4.5 mmol/L (3.5-5.1); Sodium 143 mmol/L (136-145); Triglyceride 139 mg/dL (<150)
== END 2023-08-10 08:43 | disposition home or self-care (01) ==
LOC: LBO 08:43
PROVIDERS: PCP Nurse Practitioner Family; Visit Provider Nurse Practitioner Family
DX: I10 Essential (primary) hypertension (principal); E78.00 Pure hypercholesterolemia, unspecified; E03.9 Hypothyroidism, unspecified; E11.65 Type 2 diabetes mellitus with hyperglycemia; E66.9 Obesity, unspecified
CPT/HCPCS: 36415; 80048; 80061

== ENCOUNTER → 2023-08-17 00:18 | Outpatient (CLI) | payer MEDICAID, SELFPAY ==
--- NOTE | 2023-08-17 | DI.US_ITS ---
Exam(s) MG MAMMO SCREEN CALL BACK UNI US BREAST RT COMPLETE EXAM: MG MAMMO SCREEN CALL BACK UNI-RIGHT AND COMPLETE RIGHT BREAST ULTRASOUND CLINICAL HISTORY: 5 MM NODULE POSTERIOR INFERIOR RT BREAST. TECHNIQUE: Unilateral RIGHT BREAST spot mammographic images obtained with 3D tomosynthesisand utiliz ing computer aided detection (CAD). . Complete RIGHT breast Ultrasound was also performed, including all 4 quadrants, the retroareolar ayden on, and the ipsilateral axilla. COMPARISON: Prior mammograms were reviewed. This additional imaging was performed due to findings described on the recent screening mammogram of 08/10/2023.. FINDINGS: DIAGNOSTIC MAMMOGRAM: Additional mammographic views performed todayrender this area less concerning. COMPLETE RIGHT BREAST ULTRASOUND: Ultrasound performed today reveals no evidence of solid or significant cystic lesions in all 4 quadra nts.. Scanning of the ipsilateral axilla reveals no significant adenopathy. IMPRESSION: 1. No radiographic evidence of malignancy in the right breast. 2. Negative complete right breast ultrasound Appropriate follow-up is to keep this patient on a yearly mammogram schedule, with earlier imaging i f a self detected breast change is noted.. The patient was informed of these findings and recommendations by myself prior to leaving the departm ent today. BI-RADS Category 2 - Benign Findings Breast Density - Category B - Scattered areas of fibroglandular density Breast density Category C or D implies that the patient has dense breast tissue. Dense breast tissue can make it harder to find cancer on a mammogram. Dense breast tissue is also associated with an incr eased risk of breast cancer. This information about the result of the mammogram report was provided to the patient to raise their awareness. Use this report when you speak with the patient about their risks for breast cancer, which includes their family history. At that time, you may recommend additional screening tests (Ultrasoun d or MRI) as these tests may add significant information. A negative radiographic report should not delay biopsy if a dominant or clinically suspicious mass is present. Up to ten percent of cancers are not identified on mammography. A negative report may reinforce clinical impression. Adenosis and dense breasts may obscure an underlying neoplasm. False positive reports average 6 to 10%. Patient will receive a letter notifying them of these results.
== END ==
PROVIDERS: PCP Nurse Practitioner Family; Visit Provider Nurse Practitioner Family
DX: Z12.31 Encounter for screening mammogram for malignant neoplasm of breast (principal); N63.12 Unspecified lump in the right breast, upper inner quadrant
CPT/HCPCS: 76642; 77063; 77067

== ENCOUNTER 2023-11-10 13:02 | Outpatient (REF) | payer MEDICAID, SELFPAY ==
[2023-11-10 22:11] LABS: Bilirubin Negative (Negative); Blood Moderate (Negative); Clarity Cloudy (Clear); Glucose Negative (Negative); Ketones Negative (Negative); Leukocyte Esterase Moderate (Negative); Nitrite Negative (Negative); Specific Gravity 1.025 (1.005-1.025); Urobilinogen 0.2 mg/dL (Up to 0.2); pH 5.5 (5-8)
[2023-11-10 22:25] LABS: Bacteria Moderate HPF (Negative); Crystals Many Amorphous HPF (Negative); Epithelial Cells Few HPF (Negative); WBC >50 HPF (0-5)
[2023-11-10 22:26] LABS: C & S Indicated? Yes; Casts Negative LPF (Negative); Mucus Negative (Negative)
== END 2023-11-10 13:03 | disposition home or self-care (01) ==
LOC: LBN 13:02
PROVIDERS: PCP Nurse Practitioner Family; Visit Provider Nurse Practitioner Family
DX: N76.0 Acute vaginitis (principal); N39.0 Urinary tract infection, site not specified; E11.9 Type 2 diabetes mellitus without complications; E11.319 Type 2 diabetes mellitus with unspecified diabetic retinopathy without macular edema
CPT/HCPCS: 87077; 81003; 81015; 87086; 87186; 87480; 87510; 87660

== ENCOUNTER 2023-12-09 02:01 | Outpatient (CLI) | payer MEDICAID, SELFPAY ==
[2023-12-09 11:57] LABS: TSH (W/Ref FT4) 2.29 uIU/mL (0.36-3.74)
== END 2023-12-09 02:02 | disposition home or self-care (01) ==
LOC: LBO 02:01
PROVIDERS: PCP Nurse Practitioner Family; Visit Provider Nurse Practitioner Family
DX: E03.9 Hypothyroidism, unspecified (principal)
CPT/HCPCS: 36415; 84443

== ENCOUNTER 2024-06-28 01:12 | Outpatient (CLI) | payer MEDICAID, SELFPAY ==
--- NOTE | 2024-06-28 09:08 | DI.CT_ITS ---
Exam(s) CT CHEST WO EXAM: CT CHEST WO CLINICAL HISTORY: f/u sarcoidosis,lung nodules,r91.8. TECHNIQUE: Imaging protocol: Axial computed tomography images were obtained and coronal and sagittal reformatted images were created and reviewed. Lung Computer Aided Detection (CAD) was utilized. COMPARISON: CT CT CHEST WO from 09/24/[address] ABDOMEN PELVIS W from 05/17/[address] CHEST WO from 06/10/2023 FINDINGS: Tracheobronchial tree: Patent where visualized. No bronchiectasis is present. No bronchial wall thic kening or mucous plugging. Pulmonary parenchyma: The left lower lobe nodule has shown decrease in size measuring less than 5 mm on the current examination. The nodule in the posterior lateral aspect of the right lower lobe (seri es 2, image 107) is unchanged in size. No new pulmonary nodules are appreciated. No focal consolida ting infiltrates are present. Mediastinum and Emma: No dominant adenopathy or fluid collection. The esophagus is unremarkable. Thyroid gland: Unremarkable. Pleura: No effusion or pneumothorax. Heart: The heart is not dilated. Coronary artery calcification is present. No pericardial effusion. Aorta: Thoracic aorta non-dilated. Mild atherosclerotic calcification is present. Upper abdomen: Status post cholecystectomy. There is a stable liver parenchymal calcification. Lymph nodes: Within normal limits. Soft tissues: Unremarkable. Bones:Within normal limits for the patient's age. IMPRESSION: 1. Interval decrease in size of the pulmonary nodules. No new nodules are present. 2. No thoracic adenopathy. 3. No pulmonary infiltrates. RADIATION DOSE DELIVERED: 351.61mGy.cm Total DLP 351.61mGy.cm Total DLP DATA REPOSITORY: All CT scans at this facility are submitted to the National Radiology Data Registry (NRDR) Dose Index Registry (DIR) with the [employer] ([employer]). RADIATION OPTIMIZATION: All CT scans at this facility use at least one of these dose optimization te chniques: automated exposure control; mA and/or kV adjustment per patient size (includes targeted exa ms where dose is matched to clinical indication); or iterative reconstruction.
== END 2024-06-28 01:32 ==
LOC: DI 01:12
PROVIDERS: PCP Nurse Practitioner Family; Visit Provider Physician Assistant Surgical
DX: R91.8 Other nonspecific abnormal finding of lung field (principal)
CPT/HCPCS: 71250

== ENCOUNTER 2024-07-21 07:47 | Emergency (ER) | payer MEDICAID, SELFPAY ==
[2024-07-21 07:48] VITALS: BP 141/88; PULSE 84; RESP 15; TEMP 36.6; O2SAT 97
--- NOTE | 2024-07-21 08:16 | W.ED.GENAD ---
Discharge Plan Disposition Patient Disposition: Home Condition: Stable Discharge Details Clinical Impression: Plantar callus, Diabetic foot Primary Care Provider: Yadira Ngo ED Provider: Renita Hall Home Meds and New Rx's Prescriptions: Continued nystatin 100,000 unit/gram powder 1 applic Topical TID PRN (Reason: rash) Qty: 60 3RF Rx Instructions: Apply to groin rash three times per day in between steroid cream applications. atorvastatin 40 mg tablet 40 mg PO DAILY MDD 40 mg 90 Days Qty: 90 4RF Rx Instructions: Take one 40 mg tablet by mouth once daily as directed. lisinopril 10 mg tablet 10 mg PO DAILY MDD 10 mg 90 Days Qty: 90 4RF Rx Instructions: Take one 10 mg tablet once daily by mouth as directed loratadine 10 mg tablet 10 mg PO DAILY MDD 10 mg 90 Days Qty: 90 4RF Rx Instructions: Take one 10 mg tablet by mouth as directed. naproxen 500 mg tablet 500 mg PO BID MDD 1500 mg Qty: 300 4RF Rx Instructions: Take one 500 mg tablet by mouth in the morning and two 500 mg tablets by mouth in the evening as directed. norethindrone acetate 5 mg tablet 5 mg PO DAILY MDD 5 mg 90 Days Qty: 90 4RF Rx Instructions: Take one tablet by mouth once daily pantoprazole 40 mg tablet,delayed release (DR/EC) 40 mg PO DAILY MDD 40 mg 90 Days Qty: 90 4RF Rx Instructions: Take one 40 mg tablet by mouth once daily as directed. fluoxetine 60 mg tablet 60 mg PO DAILY MDD 60 mg 90 Days Qty: 90 4RF Rx Instructions: Take one 60 mg tablet once daily by mouth as directed. (see notes). semaglutide 0.25 mg or 0.5 mg(2 mg/1.5 mL) pen injector 1 mg subcut QWEEK Patient Comments: per patient report, on 1mg per week now Rx Instructions: Inject 0.5 mg subcutaneously once weekly as directed Xiidra 5 % dropperette 1 drp ophthalmic (eye) BID Rx Instructions: administer approximately 12 hours apart triamcinolone acetonide 0.1 % cream 1 applic Topical BID PRN (Reason: rash) Qty: 30 2RF Rx Instructions: Apply to rash on breast 0.025% lisdexamfetamine [Vyvanse] 40 mg capsule 40 mg PO DAILY MDD 40mg Qty: 28 0RF (DME) Dexcom G6 Transmitter Device See Rx Instructions .ROUTE .MEDSUPPLY Qty: 1 4RF Rx Instructions: As directed (DME) Dexcom G6 Sensor Device See Rx Instructions .ROUTE .MEDSUPPLY Qty: 3 12RF Rx Instructions: As directed insulin aspart U-100 [Novolog FlexPen U-100 Insulin] 100 unit/mL (3 mL) insulin pen See Rx Instructions Sub-Q TID Qty: 15 3RF Dose Instruction: Units determined by FS and carb intake Sub-Q TID; E11.65 Patient Comments: pt doesnt remember how many units Rx Instructions: Units determined by FS and carb intake Sub-Q TID; E11.65 insulin degludec [Tresiba FlexTouch U-200] 200 unit/mL (3 mL) insulin pen 70 unit subcut DAILY Patient Comments: patient reports taking 3-10 units as needed Rx Instructions: As directed (DME) Dexcom G6 Aircraft Machinist Helper Misc See Rx Instructions .ROUTE .MEDSUPPLY Qty: 1 0RF Rx Instructions: As directed glucose [Dex4 Glucose] 4 gram tablet,chewable 4 g PO Q15M PRN (Reason: hypoglycemia) Qty: 7 2RF Rx Instructions: until response levocetirizine [Xyzal] 5 mg tablet 5 mg PO PRN Qty: 30 3RF (DME) pen needle, diabetic [Pen Needle] 31 gauge x 5/16 needle 1 ea Miscellaneous QID Qty: 400 3RF Rx Instructions: Dx E11.65 Pt using long- acting and mealtime insulin. sumatriptan succinate [Imitrex] 50 mg tablet 50 mg PO PRN MDD 200mg Qty: 30 3RF Rx Instructions: GlucaGen HypoKit 1 mg recon soln 1 mg subcut Q20M PRN (Reason: hypoglycemia) Qty: 1 0RF Rx Instructions: until target blood sugar attained magnesium oxide 400 mg magnesium capsule 400 mg PO DAILY Qty: 90 3RF valacyclovir 1 gram tablet 1,000 mg PO BID PRN (Reason: Herpes outbreak) Qty: 30 1RF Rx Instructions: Take 1 tab two times per day for 3 days PRN ammonium lactate 12 % cream 1 applic topical PRN Qty: 385 1RF Rx Instructions: Apply to itchy skin externally as needed albuterol sulfate 90 mcg/actuation HFA aerosol inhaler 2 puff inhalation QID PRN (Reason: shortness of breath or wheezing) Qty: 8.5 6RF colestipol 1 gram tablet 2 g PO BID mupirocin 2 % ointment 1 applic TP BID Qty: 44 3RF Rx Instructions: [facility] nurse reports not using. levothyroxine 125 mcg tablet 125 mcg PO DAILY MDD 125 Qty: 90 3RF Rx Instructions: Take one 125 mcg tablet by mouth once daily as directed. cyanocobalamin (vitamin B-12) [Vitamin B-12] 500 mcg tablet 500 mcg PO DAILY Qty: 90 3RF multivitamin with iron Tablet 1 tab PO DAILY Qty: 90 3RF fluticasone propionate 50 mcg/actuation spray,suspension See Rx Instructions .ROUTE .COMPLEX Qty: 16 3RF Dose Instruction: SPRAY 2 SPRAYS IN EACH NOSTRIL DAILY NEEDED FOR ALLERGY SYMPTOMS Rx Instructions: SPRAY 2 SPRAYS IN EACH NOSTRIL DAILY NEEDED FOR ALLERGY SYMPTOMS acetaminophen 500 mg tablet 1,000 mg PO TID Qty: 90 0RF ondansetron 4 mg tablet,disintegrating 4 mg PO Q8H PRN (Reason: nausea and vomiting) Qty: 30 0RF Discharge Instructions Instructions: Corns and calluses, Foot Care for Diabetics Additional Instructions: At this time x-ray shows no broken bones or any acute bony abnormality. No evidence to suggest any infection in the bone. Please follow-up with your product manager financial services. You may get [id number] bunion pads to place on this area to protect it. Please discuss further imaging such as an MRI with your PCP or your product manager financial services if foot pain continues. Follow up with primary care provider in 3-5 days. Return to ED sooner if any worsening or concerns. Thank you for allowing us to care for you today. Referrals: Yadira Ngo NP [Primary Care Provider] - 3 days Discharge Data Discharge Date/Time-TO BE ENTERED AT DEPARTURE: 07/21/24 09:10 HPI General Mode of arrival: ambulatory. Date/Time Provider Initiated Documentation: 07/21/24 08:06. Limitations to Documentation: no limitations. Information obtained by: patient, RN notes reviewed and old records reviewed. HPI Narrative: 49 year old female presents with left foot pain worse over the last 2 days. She is a diabetic and sees a product manager financial services in [place] per her report. No fever, chills, no erythema, discharge or drainage. She has a callus on the plantar surface of the base of her 5th toe. No ulceration, however patient is concerned she may have a ulcer forming. Denies any known injuries. Related Data Home Medications ?Medication ?Instructions ?Recorded ?Confirmed blood-glucose,transfer iron operator,cont #1 ea 06/16/20 07/21/24 (Dexcom G6 Aircraft Machinist Helper) glucose 4 gram chewable tablet 4 g PO Q15M PRN hypoglycemia #7 06/16/20 07/21/24 (Dex4 Glucose) tabs levocetirizine 5 mg tablet (Xyzal) 5 mg PO PRN #30 tab-caps 06/16/20 07/21/24 pen needle, diabetic 31 gauge x #400 ea 06/16/20 07/21/2407/20 (Pen Needle) sumatriptan succinate 50 mg tablet 50 mg PO PRN #30 tab-caps 06/16/20 07/21/24 (Imitrex) glucagon (human recombinant) 1 mg 1 mg subcut Q20M PRN hypoglycemia 06/17/20 07/21/24 solution for injection (GlucaGen #1 ea HypoKit) magnesium oxide 400 mg PO DAILY #90 caps 04/27/22 07/21/24 valacyclovir 1 gram tablet 1,000 mg PO BID PRN Herpes 04/28/22 07/21/24 outbreak #30 tabs nystatin 100,000 unit/gram topical 1 applic topical TID PRN rash #60 06/17/22 07/21/24 powder grams ammonium lactate 12 % topical cream 1 applic topical PRN pruritis #385 06/24/22 07/21/24 grams acetaminophen 500 mg tablet 1,000 mg (2 x 500 mg) PO TID #90 02/16/23 07/21/24 tabs lisdexamfetamine 40 mg capsule 40 mg PO DAILY #28 caps 04/05/23 07/21/24 (Vyvanse) triamcinolone acetonide 0.1 % 1 applic topical BID PRN rash #30 05/05/23 07/21/24 topical cream grams blood-glucose sensor (Dexcom G6 #3 ea 05/12/23 07/21/24 Sensor device) blood-glucose transmitter (Dexcom #1 ea 05/12/23 07/21/24 G6 Transmitter device) insulin aspart U-100 100 unit/mL See Rx Instructions subcut TID 05/12/23 07/21/24 (3 mL) subcutaneous pen (Novolog E11.65, TID, 12-20units depending FlexPen U-100 Insulin aspart) on FS & carbs #15 mL ondansetron 4 mg disintegrating 4 mg PO Q8H PRN nausea and 05/17/23 07/21/24 tablet vomiting #30 tabs insulin degludec 200 unit/mL (3 70 unit subcut DAILY Diabetes 05/19/23 07/21/24 mL) subcutaneous pen (Tresiba Mellitus FlexTouch U-200 insulin) albuterol sulfate 90 mcg/actuation 2 puff inhalation QID PRN 07/04/23 07/21/24 aerosol inhaler shortness of breath or wheezing #8.5 grams colestipol 1 gram tablet 2 g PO BID 07/25/23 07/21/24 mupirocin 2 % topical ointment 1 applic topical BID skin lesions 07/25/23 07/21/24 #44 grams atorvastatin 40 mg tablet 40 mg PO DAILY 90 days #90 tabs 08/04/23 07/21/24 fluoxetine 60 mg tablet 60 mg PO DAILY 90 days #90 tabs 08/04/23 07/21/24 lisinopril 10 mg tablet 10 mg PO DAILY 90 days #90 tabs 08/04/23 07/21/24 loratadine 10 mg tablet 10 mg PO DAILY 90 days #90 tabs 08/04/23 07/21/24 naproxen 500 mg tablet 500 mg PO BID #300 tabs 08/04/23 07/21/24 norethindrone acetate 5 mg tablet 5 mg PO DAILY 90 days #90 tabs 08/04/23 07/21/24 pantoprazole 40 mg tablet,delayed 40 mg PO DAILY 90 days #90 tabs 08/04/23 07/21/24 release levothyroxine 125 mcg tablet 125 mcg PO DAILY #90 tabs 10/24/23 07/21/24 cyanocobalamin (vitamin B-12) 500 500 mcg PO DAILY #90 tabs 01/02/24 07/21/24 mcg tablet (Vitamin B-12) multivitamin with iron 1 tab PO DAILY #90 tabs 01/02/24 07/21/24 lifitegrast 5 % eye drops in a 1 drp ophthalmic (eye) BID 05/07/24 07/21/24 dropperette (Xiidra) semaglutide 0.25 mg or 0.5 mg (2 1 mg subcut QWEEK 05/07/24 07/21/24 mg/1.5 mL) subcutaneous pen injector fluticasone propionate 50 See Rx Instructions .Route 06/04/24 07/21/24 mcg/actuation nasal .COMPLEX #16 ea spray,suspension Previous Rx's ?Medication ?Instructions ?Recorded blood-glucose,transfer iron operator,cont #1 ea 06/16/20 (Dexcom G6 Aircraft Machinist Helper) glucose 4 gram chewable tablet 4 g PO Q15M PRN hypoglycemia #7 06/16/20 (Dex4 Glucose) tabs levocetirizine 5 mg tablet (Xyzal) 5 mg PO PRN #30 tab-caps 06/16/20 pen needle, diabetic 31 gauge x #400 ea 06/16/2007/20 (Pen Needle) sumatriptan succinate 50 mg tablet 50 mg PO PRN #30 tab-caps 06/16/20 (Imitrex) glucagon (human recombinant) 1 mg 1 mg subcut Q20M PRN hypoglycemia 06/17/20 solution for injection (GlucaGen #1 ea HypoKit) magnesium oxide 400 mg PO DAILY #90 caps 04/27/22 valacyclovir 1 gram tablet 1,000 mg PO BID PRN Herpes 04/28/22 outbreak #30 tabs nystatin 100,000 unit/gram topical 1 applic topical TID PRN rash #60 06/17/22 powder grams ammonium lactate 12 % topical cream 1 applic topical PRN pruritis #385 06/24/22 grams acetaminophen 500 mg tablet 1,000 mg (2 x 500 mg) PO TID #90 02/16/23 tabs lisdexamfetamine 40 mg capsule 40 mg PO DAILY #28 caps 04/05/23 (Vyvanse) triamcinolone acetonide 0.1 % 1 applic topical BID PRN rash #30 05/05/23 topical cream grams blood-glucose sensor (Dexcom G6 #3 ea 05/12/23 Sensor device) blood-glucose transmitter (Dexcom #1 ea 05/12/23 G6 Transmitter device) insulin aspart U-100 100 unit/mL See Rx Instructions subcut TID 05/12/23 (3 mL) subcutaneous pen (Novolog E11.65, TID, 12-20units depending FlexPen U-100 Insulin aspart) on FS & carbs #15 mL ondansetron 4 mg disintegrating 4 mg PO Q8H PRN nausea and 05/17/23 tablet vomiting #30 tabs albuterol sulfate 90 mcg/actuation 2 puff inhalation QID PRN 07/04/23 aerosol inhaler shortness of breath or wheezing #8.5 grams mupirocin 2 % topical ointment 1 applic topical BID skin lesions 07/25/23 #44 grams atorvastatin 40 mg tablet 40 mg PO DAILY 90 days #90 tabs 08/04/23 fluoxetine 60 mg tablet 60 mg PO DAILY 90 days #90 tabs 08/04/23 lisinopril 10 mg tablet 10 mg PO DAILY 90 days #90 tabs 08/04/23 loratadine 10 mg tablet 10 mg PO DAILY 90 days #90 tabs 08/04/23 naproxen 500 mg tablet 500 mg PO BID #300 tabs 08/04/23 norethindrone acetate 5 mg tablet 5 mg PO DAILY 90 days #90 tabs 08/04/23 pantoprazole 40 mg tablet,delayed 40 mg PO DAILY 90 days #90 tabs 08/04/23 release levothyroxine 125 mcg tablet 125 mcg PO DAILY #90 tabs 10/24/23 cyanocobalamin (vitamin B-12) 500 500 mcg PO DAILY #90 tabs 01/02/24 mcg tablet (Vitamin B-12) multivitamin with iron 1 tab PO DAILY #90 tabs 01/02/24 fluticasone propionate 50 See Rx Instructions .Route 06/04/24 mcg/actuation nasal .COMPLEX #16 ea spray,suspension Allergies Allergy/AdvReac Type Severity Reaction Status Date / Time Sulfa (Sulfonamide Allergy Severe Anaphylaxsi Verified 07/21/24 07:53 Antibiotics) s latex Allergy Intermediate Hives Verified 07/21/24 07:53 fentanyl AdvReac Intermediate went Verified 07/21/24 07:53 outside of her body, felt uncomfortable zolpidem tartrate (From AdvReac Mild sleep walks Verified 07/21/24 07:53 Ambien) Dust, cat dander Allergy Intermediate Hives Uncoded 07/21/24 07:53 Environmental Allergies Allergy Intermediate Rash Uncoded 07/21/24 07:53 General Stated Complaint: RashLesion RODNEY: 3 Review of Systems All systems reviewed & are unremarkable except as noted in HPI and below Musculoskeletal Musculoskeletal: Reports as per HPI Integumentary/Breasts Skin/Breast: Reports as per HPI and Reports skin pain Exam Const General: cooperative, comfortable and well developed Nutritional Appearance: average body habitus Orientation: alert, awake and oriented x3 Resp Effort & Inspection: normal respiratory effort and able to speak in complete sentences Auscultation: clear to auscultation bilaterally Extrem Left lower extremity: foot Details: normal capillary refill, tenderness Location: of the plantar foot Location: other (Mid), toes with normal ROM, no edema and vascular exam Details: dorsalis pedis pulse present and normal capillary refill Ankle/foot/toe images: 1. Approximately 1 cm in diameter round callused area with a central darker area. Appears to be plantar wart versus callus. No ulceration noted. Course Vital Signs Vital signs: Vital Signs Temperature 36.6 C 07/21/24 07:48 Pulse 84 07/21/24 07:48 Respiratory Rate 15 07/21/24 07:48 Blood Pressure 141/88 H 07/21/24 07:48 Pulse Oximetry 97 07/21/24 07:48 Temperature 36.6 C 07/21/24 07:48 Temperature Source Oral 07/21/24 07:48 Pulse 84 07/21/24 07:48 Respiratory Rate 15 07/21/24 07:48 Blood Pressure 141/88 H 07/21/24 07:48 Blood Pressure Position Sitting 07/21/24 07:48 Pulse Oximetry 97 07/21/24 07:48 Oxygen Delivery Method Room Air 07/21/24 07:48 Oxygen Flow Rate 0 07/21/24 07:48 Pain Level 8 07/21/24 07:48 Comment 10 with ambulation 07/21/24 07:48 Medical Decision Making 49 year old female presents with left foot pain worse over the last 2 days. She is a diabetic and sees a product manager financial services in [place] per her report. No fever, chills, no erythema, discharge or drainage. She has a callus on the plantar surface of the base of her 5th toe. No ulceration, however patient is concerned she may have a ulcer forming. Denies any known injuries. X-ray of left foot ordered. No concern at this time for any infection. No erythema. I also am not concerned for any acute abnormality. I do encourage patient to follow-up with her product manager financial services. She has an appointment in 2 weeks. No evidence of osteomyelitis on the x-ray, I did tell patient to contact her product manager financial services for close follow-up and further imaging if needed. She verbalized understanding. This text was generated using [employer] Press[employer] system, please disregard any oddities of phrase or misspellings. Medical Records Medical records reviewed: Yes I reviewed the patient's medical records. Imaging Data Radiologic Study: Imaging: X-Ray Radiologist's impression: XR FOOT LT COMPLETE EXAM: XR FOOT LT COMPLETE CLINICAL HISTORY: Left foot pain. TECHNIQUE: 2D digital imaging was performed of the left foot. Three images were obtained. AP, oblique and lateral views were obtained. COMPARISON: CR XR FOOT LT COMPLETE from 03/16/2023 FINDINGS: BONES: No acute fracture is present. No bony destructive lesion is seen. There is a small plantar calcaneal spur. There is a small enthesophyte at the posterior calcaneus. JOINTS: No dislocation present. Mild degenerative changes are seen in the foot particularly at the TMT joints. SOFT TISSUE: No soft tissue gas is present. No radiopaque foreign bodies are seen. IMPRESSION: No acute abnormality. No areas of erosions are seen to suggest osteomyelitis. Quality:SDOH Health Related Social Needs: Health related social needs details NA [facility] All Active Problems (Updated 07/21/24 @ 08:57 by Renita Hall NP) Diabetic foot (Acute) Plantar callus (Acute) Sarcoidosis (Acute) Former smoker (Acute) Lung nodules (Acute) Elevated LFTs (Acute) Rash and nonspecific skin eruption (Acute) fungal under breast, abd groin Normal colonoscopy (Acute) Family history of colon cancer in father (Acute) Patient was greater than 60 at the time of diagnosis Dysuria (Acute) Post traumatic stress disorder (PTSD) (Acute) Intercostal myalgia (Acute) Left Obesity (BMI 30-39.9) (Acute) Foot ulcer (Acute) Right ankle Diabetic retinopathy (Acute ~01/01/21) 01/01/21 MILD BACKGROUND RETINOPATHY-DR. JENNIFER BARNEY (attention deficit disorder) (Acute) Atypical pigmented skin lesion (Acute) Fatigue (Acute) Skin lesion of scalp (Acute) 05/2020 - Biopsy negative at [facility] [place] 05/2021 - Recurrent Primary osteoarthritis of both knees (Acute) RIGHT knee steroid injection (40mg): 11/15/2022 Synvisc injections bilaterally: 06/22/2019 Sleep apnea (Chronic 05/28/12) Unspecified mental or behavioral problem (Acute) Periodic non-compliance with treatment program. 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 Genital herpes HSV-1 primary outbreak. Surgical History Trigger finger, right ring finger S/P Release: 02/16/2023 Carpal tunnel syndrome, right S/P ECTR: 02/16/2023 History of colonoscopy (~05/10/22) History of bladder surgery History of section History of gynecological procedure Status post cholecystectomy Status post craniofacial reconstruction section 1999 & 2010 Endometrial Biopsy 12/24/13-[facility] Tooth extraction 11/18- EXTRACTION Cholecystectomy (~2005) CRANIO/MAXILLAFACIAL SURGERY (~2007) Pt. states she doesnt remember Bladder Surgery (~2002) Family History Mother No problems noted. Father Alcohol abuse Prostate cancer Sister No problems noted. Brother Stroke x2 (five years apart) Maternal Grandfather Essential hypertension Heart disease Hyperlipidemia Paternal Grandfather , AGE 57 Myocardial infarction Brain tumor Maternal Grandmother , AGE 85 Essential hypertension Paternal Grandmother , AGE 85 Personal history of malignant neoplasm COLON MATERNAL AUNT Essential hypertension Cancer MATERNAL UNCLE Essential hypertension Social History Smoking/Tobacco Use Status: Former Tobacco Use tobacco type: cigarettes Quit Date: 03/07/14 Pack-years: 10 Tobacco: How many years used: 34 Quit status: quit date established Second Hand Exposure: Yes Smoking risk assessment performed?: Yes Alcohol Intake: former Drug use: Never Substance use type: former substance user Caregiver/Support person: No Household members: children and other Details: 2 Housing: apartment Number of Children: 4 Do you need help understanding health information?: Always 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 Pets and animals: Yes Pets and animals: cat(s) and dog(s) Sexually active: No Do you think of yourself as: straight/heterosexual Current gender identity: female What is your relationship status?: never How often do you talk on the phone with friends or family?: three or more times per week How often do you get together with friends or relatives?: three or more times per week How often do you attend shinto or jew services?: 4 or more times per year Do you belong to any clubs or organized social groups?: no Panel score (0-1 are the most socially isolated patients): 2 What type of physical activity do you participate in: walking and swimming Duration: 15-30 minutes/day Frequency: 3-4 times per week Jailyn/Mandaeism: Zoroastrianism Special jailyn needs: No (SINGING) Seatbelt use: sometimes Helmet use: No Drive intox or ride w/intox driver/guide: No Do you feel safe at home: Yes Do you feel safe in your relationship?: Yes
--- NOTE | 2024-07-21 08:36 | DI.RAD_ITS ---
Exam(s) XR FOOT LT COMPLETE EXAM: XR FOOT LT COMPLETE CLINICAL HISTORY: Left foot pain. TECHNIQUE: 2D digital imaging was performed of the left foot. Three images were obtained. AP, obli que and lateral views were obtained. COMPARISON: CR XR FOOT LT COMPLETE from 03/16/2023 FINDINGS: BONES: No acute fracture is present. No bony destructive lesion is seen. There is a small plantar caterina caneal spur. There is a small enthesophyte at the posterior calcaneus. JOINTS: No dislocation present. Mild degenerative changes are seen in the foot particularly at the TM T joints. SOFT TISSUE: No soft tissue gas is present. No radiopaque foreign bodies are seen. IMPRESSION: No acute abnormality. No areas of erosions are seen to suggest osteomyelitis. DATA REPOSITORY: RADIATION DOSE DELIVERED:
[2024-07-21 09:06] VITALS: PULSE 82; RESP 16; O2SAT 98
== END 2024-07-21 09:10 | disposition home or self-care (01) ==
PROVIDERS: Emergency Provider Registered Nurse Emergency; PCP Nurse Practitioner Family
DX: E11.69 Type 2 diabetes mellitus with other specified complication; M79.672 Pain in left foot; L84 Corns and callosities
CPT/HCPCS: 99283 ×2; 73630

== ENCOUNTER 2024-08-06 04:17 | Outpatient (CLI) | payer MEDICAID, SELFPAY ==
[2024-08-06 11:32] LABS: CREATININE 1.1 mg/dL (0.55-1.02); Calculated LDL 112 mg/dL (<100); Cholesterol 216 mg/dL (<200); Estimated GFR 60.84 (mL/min/1.73m2); HDL Cholesterol 37 mg/dL (>or=50); Triglyceride 338 mg/dL (<150)
[2024-08-06 11:32] LABS: COMMENT (LAB VIEW ONLY) 208.54 mg/dL; Microalb ug/mg Crea 9.7 ug/mg Cr
[2024-08-06 12:31] LABS: TSH (W/Ref FT4) 1.03 uIU/mL (0.36-3.74)
== END 2024-08-06 04:18 | disposition home or self-care (01) ==
PROVIDERS: PCP Nurse Practitioner Family; Visit Provider Student in an Organized Health Care Education/Training Program
DX: E11.319 Type 2 diabetes mellitus with unspecified diabetic retinopathy without macular edema (principal); Z79.4 Long term (current) use of insulin; E03.9 Hypothyroidism, unspecified
CPT/HCPCS: 36415; 80061; 82043; 82565; 82570; 83036; 84443

== ENCOUNTER 2024-10-17 01:28 | Outpatient (CLI) | payer MEDICAID, SELFPAY ==
--- NOTE | 2024-10-17 06:30 | DI.MAMMO_ITS ---
Exam(s) MAMMO SCREENING EXAM: MAMMO SCREENING CLINICAL HISTORY: screening,z12.39 TECHNIQUE: Bilateral full field digital CC and MLO mammographic images were obtained with 3D tomosynthesis and utilizing computer aided detection (CAD). COMPARISON: Comparison is made with prior examinations. FINDINGS: Masses/Architectural Distortion: No suspicious masses or areas of architectural distortion are present. There is a new 6 mm nodule in the upper outer quadrant of the left breast. Microcalcifications: No suspicious pleomorphic-type are seen. There are benign- appearing calcifications in both breasts. Skin Thickening/Nipple Retraction: None. IMPRESSION: 1. New 6 mm nodule in the left breast 7 cm from the nipple on the MLO view. 2. Spot compression views are requested for further evaluation. Ultrasound may be indicated at that time. BI-RADS Category 0 - Incomplete: Need additional imaging evaluation Breast Density - Category B - There are scattered areas of fibroglandular density. Breast density Category C or D implies that the patient has dense breast tissue. Dense breast tissue can make it harder to find cancer on a mammogram. Dense breast tissue is also associated with an increased risk of breast cancer. This information about the result of the mammogram report was provided to the patient to raise their awareness. Use this report when you speak with the patient about their risks for breast cancer, which includes their family history. At that time, you may recommend additional screening tests (Ultrasound or MRI) as these tests may add significant information. A negative radiographic report should not delay biopsy if a dominant or clinically suspicious mass is present. Up to ten percent of cancers are not identified on mammography. A negative report may reinforce clinical impression. Adenosis and dense breasts may obscure an underlying neoplasm. False positive reports average 6 to 10%. Patient will receive a letter notifying them of these results.
== END 2024-10-17 01:48 ==
LOC: DI 01:28
PROVIDERS: PCP Nurse Practitioner Family; Visit Provider Nurse Practitioner Family
DX: Z12.31 Encounter for screening mammogram for malignant neoplasm of breast (principal); R92.323 Mammographic fibroglandular density, bilateral breasts
CPT/HCPCS: 77063; 77067

== ENCOUNTER 2024-10-19 15:08 | Outpatient (CLI) | payer MEDICAID, SELFPAY ==
--- NOTE | 2024-10-19 | DI.MAMMO_ITS ---
Exam(s) MG MAMMO SCREEN CALL BACK UNI US BREAST LT LIMITED EXAM: MG MAMMO SCREEN CALL BACK UNI CLINICAL HISTORY: F/U MAMMO, R92.8,NEW 6 MM LT BREAST NODULE. TECHNIQUE: Craniocaudal and mediolateral oblique spot compression digital Mammography views of the breast with Tomosynthesis and breast ultrasound. COMPARISON: MG MG MAMMO SCREENING from 05/15/2020 MG MG MAMMO SCREENING from 08/10/2023 MG MG MAMMO SCREENING from 10/17/2024 US US BREAST LT COMPLETE from 10/19/2024 FINDINGS: Mammography/Tomosynthesis: Masses: Small persistent circumscribed nodule of low density which may represent a small lymph node. No suspicious features. Architectural Distortion: None seen. Microcalcifictions: No suspicious pleomorphic-type are seen. Skin Thickening/Nipple Retraction: None. Left breast US: Echotexture: Normal appearance of the glandular tissue. Shadowing: Multiple areas of rounded shadowing consistent with benign calcifications noted on mammogram. 3 millimeter or oil cyst noted 12 o'clock position 9 cm from the nipple. Cyst: None. Solid lesions: None seen. Ductal dilation: None. IMPRESSION: 1. No evidence of malignancy is noted. 2. Unless there is more urgent need, follow-up screening mammography is recommended, as per [employer] guidelines. 3. The findings were discussed with the patient on the date of the examination. BI-RADS Category 2 - Benign Findings Breast Density - Category B - There are scattered areas of fibroglandular density. Breast density Category C or D implies that the patient has dense breast tissue. Dense breast tissue can make it harder to find cancer on a mammogram. Dense breast tissue is also associated with an increased risk of breast cancer. This information about the result of the mammogram report was provided to the patient to raise their awareness. Use this report when you speak with the patient about their risks for breast cancer, which includes their family history. At that time, you may recommend additional screening tests (Ultrasound or MRI) as these tests may add significant information. A negative radiographic report should not delay biopsy if a dominant or clinically suspicious mass is present. Up to ten percent of cancers are not identified on mammography. A negative report may reinforce clinical impression. Adenosis and dense breasts may obscure an underlying neoplasm. False positive reports average 6 to 10%. Patient will receive a letter notifying them of these results.
== END 2024-10-19 15:28 ==
LOC: DI 15:08
PROVIDERS: PCP Nurse Practitioner Family; Visit Provider Nurse Practitioner Family
DX: Z12.31 Encounter for screening mammogram for malignant neoplasm of breast (principal); R92.8 Other abnormal and inconclusive findings on diagnostic imaging of breast
CPT/HCPCS: 76642; 77063; 77067

== ENCOUNTER 2024-11-08 13:32 | Outpatient (CLI) | payer MEDICAID, SELFPAY ==
--- NOTE | 2024-11-08 13:30 | RT.EKG_ITS ---
APPROVED REPORT Exam: Resting ECG Reason for Exam: Pre-op evaluation Patient Location: O HR:86 bpm ECG Measurements Heart Rate 86 AXIS OR 173 P 35 QRSd 145 QRS 22 QT 374 T -22 QTc 448 Conclusion Sinus rhythm...normal P axis, V-rate 50- 99 Right bundle branch block...QRSd>120, terminal axis(90,270)
== END 2024-11-08 13:33 | disposition home or self-care (01) ==
LOC: DI.CM 13:33
PROVIDERS: PCP Nurse Practitioner Family; Visit Provider Nurse Practitioner Family
DX: Z01.818 Encounter for other preprocedural examination (principal); I45.10 Unspecified right bundle-branch block
CPT/HCPCS: 93010

== ENCOUNTER 2024-11-19 00:20 | Outpatient (CLI) | payer MEDICAID, SELFPAY ==
--- NOTE | 2024-11-19 | DI.CT_ITS ---
Exam(s) CT CHEST W EXAM: CT CHEST W CLINICAL HISTORY: SARCOIDOSIS D86.9 INTERVAL FU BIOPSY PROVEN SARCOID FROM BOTH MEDIASTINAL/ TECHNIQUE: Imaging Protocol: Axial computed tomography images with coronal and sagittal reformatted images were created and reviewed. Computer aided detection (CAD) was utilized. CONTRAST MATERIAL: Intravenous: Omnipaque 350Contrast volume:70 mL. COMPARISON: CT CT CHEST WO from 06/10/[address] CHEST WO from 06/28/2024 FINDINGS: Tracheobronchial tree: Patent where visualized. No evidence of bronchiectasis. Pulmonary parenchyma: The nodule in the lateral aspect of the right lower lobe measures 3 mm compared to 4 mm on the prior examination. Left lower lobe pulmonary nodule continues to show decrease in size. There are no new pulmonary nodules. No focal consolidating infiltrates are present. Mediastinum and Emma: No dominant adenopathy or fluid collection. The esophagus is unremarkable. Thyroid gland: Unremarkable. Pleura: No effusion or pneumothorax. Heart: The heart is not dilated. There is mild single-vessel coronary artery calcification present. No pericardial effusion. Aorta: Thoracic aorta non-dilated. Mild atherosclerotic calcification is present. Pulmonary arteries: Due to the timing of the bolus, there is suboptimal opacification of pulmonary arteries for evaluation of pulmonary emboli. Upper abdomen: Status post cholecystectomy. The peripherally enhancing mass in the dome of the right lobe of the liver is unchanged and likely reflects a hemangioma. Lymph nodes: Within normal limits. Bones: Within normal limits for the patient's age. Soft tissues: Unremarkable. IMPRESSION: 1. Interval decrease in size of the pulmonary nodules since 06/28/2024. There are no new pulmonary nodules present. 2. There is no acute pulmonary process. RADIATION DOSE DELIVERED: 405.28mGy.cm Total DLP DATA REPOSITORY: All CT scans at this facility are submitted to the National Radiology Data Registry (NRDR) Dose Index Registry (DIR) with the [employer] ([employer]). RADIATION OPTIMIZATION: All CT scans at this facility use at least one of these dose optimization techniques: automated exposure control; mA and/or kV adjustment per patient size (includes targeted exams where dose is matched to clinical indication); or iterative reconstruction.
[2024-11-19 08:29] LABS: Estimated GFR 49.79 (mL/min/1.73m2)
[2024-11-19] MEDS: Normal Saline - Diluent 50 ML VIAL IJ (08:54)
[2024-11-19] MEDS: Normal Saline Flush 10 ML SYR IVP (08:54)
[2024-11-19] MEDS: Omnipaque 350 MG/ML 100 ML BTL IJ (08:55)
== END 2024-11-19 00:40 ==
LOC: DI 00:20
PROVIDERS: PCP Nurse Practitioner Family; Visit Provider Internal Medicine Pulmonary Disease
DX: D86.89 Sarcoidosis of other sites (principal)
CPT/HCPCS: 71260; 82565; J3490

== ENCOUNTER → 2025-02-27 00:08 | Outpatient (CLI) | payer MEDICAID, SELFPAY ==
--- NOTE | 2025-02-27 11:52 | DI.RAD_ITS ---
Exam(s) XR KNEE RT 4V AP,LAT,ANGUS,PAT EXAM: XR KNEE RT 4V AP,LAT,ANGUS,PAT CLINICAL HISTORY: right knee pain M25.561. TECHNIQUE: 2D digital imaging was performed of the right knee. Five views obtained. Merchant, AP, lateral and PA tunnel views were obtained. COMPARISON: CR XR KNEE RT 3V AP,LAT,ANGUS from 11/03/2022 FINDINGS: BONES: No acute fracture is present. No bony destructive lesion is seen. JOINTS: There is marked narrowing at the medial femoral tibial joint in the patellofemoral joint. There osteophytes in all 3 joint compartments. There does appear to be a small joint effusion. SOFT TISSUE: Normal. IMPRESSION: Marked osteoarthritis of the right knee. DATA REPOSITORY: RADIATION DOSE DELIVERED:
== END ==
LOC: DI 00:08
PROVIDERS: PCP Nurse Practitioner Family; Visit Provider Nurse Practitioner Family
DX: M25.561 Pain in right knee (principal); M17.11 Unilateral primary osteoarthritis, right knee
CPT/HCPCS: 73564